=== PATIENT | male | born 1950 | race Caucasian/White ===

== ENCOUNTER → 2020-07-18 09:30 | Outpatient (BNVA) | payer MEDICARE, SELFPAY | PROVIDERS: PCP Internal Medicine; Referring Provider Internal Medicine; Visit Provider Surgery | DX: Z87.19 Personal history of other diseases of the digestive system (principal); Z98.890 Other specified postprocedural states | CPT/HCPCS: 99212 ==

== ENCOUNTER 2020-08-03 01:25 | Emergency (ER) | payer MEDICARE, SELFPAY ==
[2020-08-03 01:48] VITALS: BP 132/61; PULSE 66; RESP 16; TEMP 36.6; O2SAT 95; BMI 22.8
--- NOTE | 2020-08-03 01:55 | XR_ITS ---
EXAMINATION: XR KNEE, LEFT CLINICAL INFORMATION: Status post surgery COMPARISON: None TECHNIQUE: Four views of the left knee. FINDINGS: There is a unicompartmental left knee arthroplasty, with hardware at the medial compartment appropriately aligned. Remaining compartmental joint spaces are maintained. Small joint effusion. No acute fracture. Vascular calcifications. XR/XR knee LT 4V IMPRESSION: Appropriate alignment of the medial compartment arthroplasty. Small joint effusion.
--- NOTE | 2020-08-03 02:12 | ED.GENADULT ---
HPI - General Adult General Chief complaint: General Medical Stated complaint: knee pain Time Seen by Provider: 08/03/20 01:34 Source: patient Mode of arrival: ambulatory History of Present Illness HPI narrative: 70-year-old male for chief complaint of left knee pain. Patient had a partial knee replacement done 5 weeks ago in which has been seeing physical therapy. Patient states about 5 to 6 days ago heard a Pap and continued physical therapy. Since then he has continued to have more pain appointment had to come into emergency department for evaluation. Patient denies fevers or chills. Denies trauma. Denies swelling or redness patient's orthopedic is at [facility] Onset (ago): week(s) (One week) Related Data Home Medications Medication Instructions Recorded Confirmed digoxin 250 mcg (0.25 mg) tablet 0 mcg PO 07/18/20 ferrous sulfate 325 mg (65 mg 325 mg PO BID 07/18/20 iron) tablet hydrocodone 5 mg-acetaminophen 325 tab PO 07/18/20 mg tablet lisinopril 2.5 mg tablet 2.5 mg PO DAILY 07/18/20 lorazepam 1 mg tablet 1 mg PO BID PRN 07/18/20 metoprolol succinate 25 mg 25 mg PO DAILY 07/18/20 tablet,extended release 24 hr omeprazole 20 mg capsule,delayed 20 mg PO DAILY 07/18/20 release oxycodone-acetaminophen 5 mg-325 tab PO 07/18/20 mg tablet simvastatin 40 mg tablet 40 mg PO DAILY 07/18/20 spironolactone 25 mg tablet 25 mg PO DAILY 07/18/20 terazosin 10 mg capsule 10 mg PO DAILY 07/18/20 torsemide 20 mg tablet 20 mg PO BID 07/18/20 warfarin 1 mg tablet mg PO 07/18/20 warfarin 5 mg tablet 500f10 mg PO DAILY 07/18/20 Allergies Allergy/AdvReac Type Severity Reaction Status Date / Time No Known Allergies Allergy Verified 08/03/20 01:54 [No Known Allergies*] Review of Systems Review of Systems: Constitutional : No Weight loss, No Fever, No Chills, No Night Sweats, No Fatigue, No Malaise ENT/Mouth : No Hearing loss, No Ear Pain, No Nasal Congestion, No Sinus Pain, No Hoarseness, No sore throat, No Rhinorrhea, No Swallowing Difficulty Eyes: No Eye Pain, No Swelling, No Redness, No Foreign Body, No Discharge, No Vision Changes Cardiovascular : No Chest Pain, No SOB, No Dyspnea on Exertion, No Orthopnea, No Edema, No Palpitations Respiratory : No Cough, No Sputum, No Wheezing, No Smoke Exposure, No Dyspnea Gastrointestinal : No Nausea, No Vomiting, No Diarrhea, No Constipation, No abdominal Pain, No Hematochezia, No Melena Genitourinary : no irregular bleeding, No Dysuria, No Urinary Frequency, No Hematuria, No Urinary Incontinence, No Urgency, No Flank Pain, No Urinary Flow Changes, No Hesitancy Musculoskeletal : Positive joint pain, No Myalgias, No Joint Swelling Skin : No Skin Lesions, No rash Neuro : No Weakness, No Numbness, No Paresthesias, No Loss of Consciousness, No Dizziness, No Headache Psych : No Anxiety/Panic, No Depression, No SI/HI/AH/VH, No Social Issues, Heme/Lymph: No Bruising, No Bleeding,No Lymphadenopathy Endocrine : No Polyuria, No Polydipsia, No Temperature Intolerance [facility] Past Medical History Medical History BPH (benign prostatic hyperplasia) Chronic a-fib History of laryngeal cancer Right inguinal hernia Family History Family History Father No problems noted. Mother History of hypertension Son No problems noted. Son No problems noted. Daughter No problems noted. Social History Social History Alcohol intake: never Smoking Status: Current every day smoker Advance Directives: No Advance Directives Information Provided: No Physical Exam Vital Signs: Vital Signs: Last Vital Signs Temp 98 F 08/03/20 01:48 Pulse 66 08/03/20 01:48 Resp 16 08/03/20 01:48 BP 132/61 08/03/20 01:48 Pulse Ox 95 08/03/20 01:48 Body Mass Index 22.8 Appearance: Alert. Oriented X3. No acute distress. Eyes: Pupils equal, round and reactive to light. ENT: Pharynx normal. Neck: Normal inspection. Neck supple. No lymph nodes noted. No crepitus CVS: Normal heart rate and rhythm. Pulses normal. Normal S1 and S2 Respiratory: No respiratory distress. Breath sounds normal. No Wheezing. No rales Abdomen: Soft and nontender. No rigidity. No distention. good BS x4 Skin: Skin warm and dry. Normal skin color. Normal skin turgor. Extremities: Left knee pain with healed surgical scar, no warmth or erythema. Mild tenderness to palpation bilateral lateral chronic swelling to medial Neurovascular intact to all extremities. No Lacerations. No Rash Neuro: Oriented X 3. No motor deficit. No sensory deficit. Moving all extermities. No slurred speech. Medical Decision Making MDM Narrative Medical decision making narrative: 70-year-old male with left knee pain status post surgery and possible injury. X-ray of the knee negative with small effusion however effusion too small for me to perform a centesis. At this point I doubt the patient has an infection without fevers chills or erythema warmth. Patient states he has a knee immobilizer at home and crutches at home. As well as states he has pain medications at home and which I directed home care for him will call his orthopedic from [facility] in the morning Discharge Plan Discharge Clinical Impression: Acute pain of left knee Patient Disposition: Home, Self-Care Instructions: Knee Pain (ED) Prescriptions: No Action omeprazole 20 mg capsule,delayed release(DR/EC) 20 mg PO DAILY RF: 0 warfarin 1 mg tablet PO RF: 0 warfarin 5 mg tablet 500f10 mg PO DAILY RF: 0 metoprolol succinate 25 mg tablet extended release 24 hr 25 mg PO DAILY RF: 0 ferrous sulfate 325 mg (65 mg iron) tablet 325 mg PO BID RF: 0 spironolactone 25 mg tablet 25 mg PO DAILY RF: 0 terazosin 10 mg capsule 10 mg PO DAILY RF: 0 digoxin 250 mcg (0.25 mg) tablet 0 mcg PO RF: 0 lisinopril 2.5 mg tablet 2.5 mg PO DAILY RF: 0 simvastatin 40 mg tablet 40 mg PO DAILY RF: 0 torsemide 20 mg tablet 20 mg PO BID RF: 0 oxycodone-acetaminophen 5-325 mg tablet PO RF: 0 hydrocodone-acetaminophen 5-325 mg tablet PO RF: 0 lorazepam 1 mg tablet 1 mg PO BID PRNRF: 0 Referrals: [facility] [place] [Provider Group] - 2 days (Also see your orthopedic doctor)
[2020-08-03] MEDS: Ketorolac Tromethamine 60 MG/2 ML VIAL IM (02:16)
== END 2020-08-03 03:46 | disposition home or self-care (01) ==
PROVIDERS: Emergency Provider Emergency Medicine
DX: M25.562 Pain in left knee (principal); G89.11 Acute pain due to trauma; F17.200 Nicotine dependence, unspecified, uncomplicated; Z71.6 Tobacco abuse counseling; Z79.899 Other long term (current) drug therapy
CPT/HCPCS: 73564; 96372; 99283; 99284; J1885

== ENCOUNTER → 2020-11-15 12:41 | Outpatient (BNVA) | payer MEDICARE, SELFPAY | PROVIDERS: Visit Provider Surgery | DX: K40.90 Unilateral inguinal hernia, without obstruction or gangrene, not specified as recurrent (principal) | CPT/HCPCS: 99212 ==

== ENCOUNTER → 2021-02-18 14:22 | Outpatient (BNVA) | payer MEDICARE, SELFPAY | PROVIDERS: PCP Internal Medicine; Referring Provider Internal Medicine; Visit Provider Surgery | DX: K40.90 Unilateral inguinal hernia, without obstruction or gangrene, not specified as recurrent (principal) | CPT/HCPCS: 99212 ==

== ENCOUNTER → 2021-05-23 14:22 | Outpatient (BNVA) | payer MEDICARE, SELFPAY | PROVIDERS: Visit Provider Urology | CPT/HCPCS: Q3014 ==

== ENCOUNTER → 2021-07-01 12:52 | Outpatient (BNVA) | payer MEDICARE, SELFPAY | PROVIDERS: PCP Internal Medicine; Referring Provider Internal Medicine; Visit Provider Surgery | DX: K40.91 Unilateral inguinal hernia, without obstruction or gangrene, recurrent (principal); I48.20 Chronic atrial fibrillation, unspecified; N40.0 Benign prostatic hyperplasia without lower urinary tract symptoms; Z85.21 Personal history of malignant neoplasm of larynx; Z79.899 Other long term (current) drug therapy | CPT/HCPCS: 99212 ==

== ENCOUNTER 2021-11-21 10:12 | Emergency (ER) | payer MEDICARE, SELFPAY ==
--- NOTE | ~2021-11-21 | NM_ITS ---
EXAMINATION: NM LUNG IMAGE PERFUSION CLINICAL INFORMATION: Elevated d-dimer and chest pain. COMPARISON: Chest x-ray 11/21/2021 TECHNIQUE: Following intravenous administration of 4 mCi of 90 9M technetium MAA, imaging of both lungs were obtained in multiple projection. Ventilation study was not performed. FINDINGS: On perfusion imaging there is enlarged heart resolving is nonsegmental defects along the lingula and right middle lobe. There is no segmental or subsegmental perfusion defect to suspect any PE. NM/NM pul perfusion IMPRESSION: No evidence of perfusion defect to suspect any PE. Significantly enlarged heart similar to seen on the chest x-ray 11/21/2021 earlier today
--- NOTE | ~2021-11-21 | XR_ITS ---
EXAMINATION: XR CHEST CLINICAL INFORMATION: Chest pain COMPARISON: Chest 11/21/2021 TECHNIQUE: Frontal view of the chest was obtained. FINDINGS: Moderate to significant cardiomegaly with normal pulmonary vascularity. There are dual pacer electrodes in right atrium and right ventricle. The lungs are well-expanded and clear of acute pneumonic process. No gross bony abnormality seen. XR/XR chest 1V IMPRESSION: Significant cardiomegaly.. No acute pulmonary process seen.
[2021-11-21 10:18] VITALS: BP 124/67; PULSE 88; O2SAT 94
[2021-11-21 10:26] VITALS: BP 124/60; PULSE 61; RESP 14; TEMP 36.7; O2SAT 94; BMI 24.3
--- NOTE | 2021-11-21 10:30 | ECG_ITS ---
Test Reason : chest pain Blood Pressure : / mmHG Vent. Rate : 056 BPM Atrial Rate : 340 BPM P-R Int : 000 ms QRS Dur : 202 ms QT Int : 532 ms P-R-T Axes : 000 -74 093 degrees QTc Int : 513 ms Ventricular-paced rhythm Abnormal ECG When compared with ECG of 24-FEB-2018 13:33, Vent. rate has decreased BY 9 BPM V pacing more frequent Referred By: Ashley Packer Electronically Signed By:JOCELYNE VILLASENOR
--- NOTE | 2021-11-21 10:32 | ED.CHESTPAIN ---
HPI - Chest Pain General Chief Complaint: Chest Pain Stated Complaint: CHEST PAIN X'S 30MIN,RESOLVED,3 HOME NITRO Time Seen by Provider: 11/21/21 10:29 Source: patient and EMS Mode of arrival: EMS Limitations: no limitations History of Present Illness HPI narrative: 71 years old male came in by ambulance for evaluation of chest pain. Chest pain started about 30 minutes before arrival, patient was talking breakfast with no strenuous activity when he started to have mid retrosternal chest pain, no radiation, lasted for about 30 minutes, patient tried nitro sublingual that he has a home with partial relief, no radiation of the pain, pain was described as moderate 7/10, pain was associated with mild shortness of breath, no fever, no chills, no lower extremity swelling or tenderness. No recent travel, no recent prolonged immobilization. Patient with history of cardiac stent 22 years ago, history of atrial fibrillation on anticoagulation. Related Data Home Medications Medication Instructions Recorded Confirmed digoxin 250 mcg (0.25 mg) tablet 0 mcg PO 07/18/20 07/08/21 ferrous sulfate 325 mg (65 mg 325 mg PO BID 07/18/20 07/08/21 iron) tablet hydrocodone 5 mg-acetaminophen 325 tab PO 07/18/20 07/08/21 mg tablet lisinopril 2.5 mg tablet 2.5 mg PO DAILY 07/18/20 07/08/21 lorazepam 1 mg tablet 1 mg PO BID PRN 07/18/20 07/08/21 metoprolol succinate 25 mg 25 mg PO DAILY 07/18/20 07/08/21 tablet,extended release 24 hr omeprazole 20 mg capsule,delayed 20 mg PO DAILY 07/18/20 07/08/21 release oxycodone-acetaminophen 5 mg-325 tab PO 07/18/20 07/08/21 mg tablet simvastatin 40 mg tablet 40 mg PO DAILY 07/18/20 07/08/21 spironolactone 25 mg tablet 25 mg PO DAILY 07/18/20 07/08/21 torsemide 20 mg tablet 20 mg PO BID 07/18/20 07/08/21 warfarin 1 mg tablet mg PO 07/18/20 07/08/21 warfarin 5 mg tablet 500f10 mg PO DAILY 07/18/20 07/08/21 ferrous sulfate 325 mg (65 mg 325 mg PO BID 05/23/21 07/08/21 iron) tablet,delayed release Previous Rx's Medication Instructions Recorded terazosin 10 mg capsule 10 mg PO DAILY 90 Days #90 cap 05/23/21 Allergies Allergy/AdvReac Type Severity Reaction Status Date / Time No Known Allergies Allergy Verified 07/01/21 13:00 [No Known Allergies*] Review of Systems Review of Systems: All other systems are reviewed and are negative Constitutional: Reports as per HPI and Reports no additional constitutional complaints Eyes: Reports as per HPI and Reports no additional eye complaints Reports system reviewed and no additional complaints, except as documented Cardiovascular: Reports as per HPI and Reports no additional cardiovascular complaints Respiratory: Reports as per HPI and Reports no additional respiratory complaints Gastrointestinal: Reports as per HPI and Reports no additional gastrointestinal complaints Genitourinary: Reports no additional female genitourinary complaints Musculoskeletal: Reports no additional musculoskeletal complaints Skin/Breast: Reports system reviewed and no additional complaints, except as docu Psychiatric: Reports no additional psychiatric complaints Endocrine: Reports no additional endocrine complaints Hematologic/Lymphatic: Reports no additional hematologic/lymphatic complaints Allergic/Immunologic: Reports no additional allergic/immunologic complaints Reports system reviewed and no additional complaints, except as documented and Reports Abnormal speech present [facility] Past Medical History Medical History BPH (benign prostatic hyperplasia) Chronic a-fib History of laryngeal cancer Pacemaker Right inguinal hernia Surgical History History of left knee replacement Family History Family History Father No problems noted. Mother History of hypertension Son No problems noted. Son No problems noted. Daughter No problems noted. Social History Social History Alcohol intake: never Patient Tobacco Use Status: Former Tobacco user Smoked in Last 30 Days: No Use of substances other than those prescribed or required for medical reasons: No Advance Directives: No Physical Exam Vital Signs: Vital Signs: Last Vital Signs Temp 98.1 F 11/21/21 10:26 Pulse 59 11/21/21 14:32 Resp 16 11/21/21 14:32 BP 116/57 L 11/21/21 14:32 Pulse Ox 97 11/21/21 14:32 BMI result Body Mass Index 24.3 Vital signs have been reviewed as appeared to be correct. Blood pressure normal. Heart rate normal. Respiration rate normal. Temperature normal. Oxygen saturation normal. Appearance: Alert. Oriented X3. No acute distress. Head: Normal external exam. Normocephalic. Atraumatic. No Corbin signs noted. No raccoon eyes noted Eyes: PERRLA. EOMI. Conjunctiva and sclera normal. Eyelids normal. ENT: TM's Normal. Pharynx normal. Uvula midline. Moist mucous membranes. No trismus noted. No drooling noted. No muffled voice noted. Neck: Normal inspection. Neck supple. FROM. No adenopathy. Thyroid Normal. No meningeal signs. No neck mass noted. CVS: Normal heart rate and rhythm. Heart sound normal. No murmurs noted. Pulses normal throughout. Respiratory: No respiratory distress. Painless inspiration. Breath sounds normal. No wheezes/rales/rhonchi noted. Chest nontender. No accessory muscle usage noted or decreased air movement noted. Abdomen: Soft and nontender. Bowel sounds normal in all 4 quadrants. No distention noted. No organomegaly noted. No visible injury noted. Back: No CVA tenderness. Full range of motion noted. Skin: Skin warm and dry. Normal skin color. Normal skin turgor. No rashes/lesions/lacerations noted. Extremities: No lower extremity edema. Extremities exhibit normal range of motion. Extremities nontender. Neuro: Oriented X 3. Cranial nerve exam: II-XII are grossly intact No motor deficit. No sensory deficit. Reflexes normal. Course Course Course Narrative: Assessment and plan. 71-year-old male came in for evaluation of chest pain, patient had slight elevation of D-dimer with low suspicion V/Q scan of the chest patient has been maintaining O2 sat at 97% on room air with normal respiratory rate and no tachycardia making PE diagnosis is unfavorable, patient also EKG showing ventricular paced rhythm at 56, normal troponin. Patient was reassured to follow-up with his PCP. [facility] - Chest Pain Medical Records Data Attestation: I reviewed the patient's medical records. Lab Data Attestation: I reviewed the patient's lab results. Result diagrams: 11/21/21 10:54 11/21/21 10:54 Labs: Lab Results 11/21/21 11/21/21 11/21/21 Range/Units 10:54 10:54 10:54 WBC 11.4 H (4.8-10.8) X10*3/uL RBC 3.64 L (4.60-5.80) X10*6/uL Hgb 11.2 L (14.0-18.0) g/dl Hct 34.3 L (42.0-52.0) % MCV 94.2 (80.0-98.0) fL MCH 30.8 (27.0-33.0) pg MCHC 32.7 (31.0-36.0) g/dl RDW 14.2 (11.0-16.0) % Plt Count 171 (160-400) X10*3/uL MPV 9.4 (9.4-12.4) fL Immature Gran % (Auto) 1.6 H (0.0-0.4) % Neut % (Auto) 71.1 (45-73) % Lymph % (Auto) 18.5 L (20-40) % Irion % (Auto) 8.3 (2-11) % Eos % (Auto) 0.3 (0-4) % Baso % (Auto) 0.2 (0-2) % Lymph # (Auto) 2.1 (1.2-4.9) X10*3/uL Irion # (Auto) 1.0 (0.1-1.2) X10*3/uL Eos # (Auto) 0.0 (0.0-0.4) X10*3/uL Baso # (Auto) 0.0 (0.0-0.2) X10*3/uL Abs Immat Gran (auto) 0.18 H (0.00-0.03) X10*3/uL Absolute Neuts (auto) 8.1 (2.0-8.3) x10*3/uL Absolute Nucleated RBC 0.000 (0.0-0.012) X10*3/uL Nucleated RBC % (auto) 0.0 (0.0-0.2) /100WBC D-Dimer High Sensitivty 275 NG/ML Sodium 140 (135-145) mmol/L Potassium 4.1 (3.3-5.1) mmol/L Chloride 101 (96-108) mmol/L Carbon Dioxide 28 (22-29) mmol/L Anion Gap 15 (12-20) BUN 24 H (9-16) mg/dL Creatinine 1.21 (0.5-1.4) mg/dL Estim Creat Clear Calc 63.2 Estimated GFR 59 Random Glucose 104 (60-115) mg/dL Calcium 9.9 (8.4-10.2) mg/dL Total Bilirubin 0.6 (0.0-1.0) mg/dL Direct Bilirubin 0.3 (0.0-0.5) mg/dL AST 24 (5-37) U/L ALT 33 (0-40) U/L Alkaline Phosphatase 71 (39-117) U/L Troponin I High Sens (<3.5-35.0) ng/L B-Natriuretic Peptide (<100) pg/mL Total Protein 7.2 (6.5-8.0) g/dL Albumin 4.8 (3.5-5.0) g/dL Lipase 50 (8-78) U/L Urine Color Urine Appearance Urine pH (5.0-8.0) Ur Specific [place] (1.005-1.025) Urine Protein (NEG-TRACE) MG/DL Urine Glucose (UA) (NEG) MG/DL Urine Ketones (NEG) MG/DL Urine Blood (NEG) Urine Nitrite (NEG) Ur Leukocyte Esterase (NEG) 11/21/21 11/21/21 11/21/21 Range/Units 10:54 14:39 14:39 WBC (4.8-10.8) X10*3/uL RBC (4.60-5.80) X10*6/uL Hgb (14.0-18.0) g/dl Hct (42.0-52.0) % MCV (80.0-98.0) fL MCH (27.0-33.0) pg MCHC (31.0-36.0) g/dl RDW (11.0-16.0) % Plt Count (160-400) X10*3/uL MPV (9.4-12.4) fL Immature Gran % (Auto) (0.0-0.4) % Neut % (Auto) (45-73) % Lymph % (Auto) (20-40) % Irion % (Auto) (2-11) % Eos % (Auto) (0-4) % Baso % (Auto) (0-2) % Lymph # (Auto) (1.2-4.9) X10*3/uL Irion # (Auto) (0.1-1.2) X10*3/uL Eos # (Auto) (0.0-0.4) X10*3/uL Baso # (Auto) (0.0-0.2) X10*3/uL Abs Immat Gran (auto) (0.00-0.03) X10*3/uL Absolute Neuts (auto) (2.0-8.3) x10*3/uL Absolute Nucleated RBC (0.0-0.012) X10*3/uL Nucleated RBC % (auto) (0.0-0.2) /100WBC D-Dimer High Sensitivty NG/ML Sodium (135-145) mmol/L Potassium (3.3-5.1) mmol/L Chloride (96-108) mmol/L Carbon Dioxide (22-29) mmol/L Anion Gap (12-20) BUN (9-16) mg/dL Creatinine (0.5-1.4) mg/dL Estim Creat Clear Calc Estimated GFR Random Glucose (60-115) mg/dL Calcium (8.4-10.2) mg/dL Total Bilirubin (0.0-1.0) mg/dL Direct Bilirubin (0.0-0.5) mg/dL AST (5-37) U/L ALT (0-40) U/L Alkaline Phosphatase (39-117) U/L Troponin I High Sens 11.8 11.9 (<3.5-35.0) ng/L B-Natriuretic Peptide 190 H (<100) pg/mL Total Protein (6.5-8.0) g/dL Albumin (3.5-5.0) g/dL Lipase (8-78) U/L Urine Color STRAW Urine Appearance HAZY Urine pH 6.0 (5.0-8.0) Ur Specific [place] <= 1.005 (1.005-1.025) Urine Protein NEG (NEG-TRACE) MG/DL Urine Glucose (UA) NEG (NEG) MG/DL Urine Ketones NEG (NEG) MG/DL Urine Blood NEG (NEG) Urine Nitrite NEG (NEG) Ur Leukocyte Esterase NEG (NEG) Imaging Data V/Q scan: Attestation: I personally reviewed and interpreted this imaging study as follows: Radiologist's impression: No evidence of perfusion defect to suspect any PE. Significantly enlarged heart similar to seen on the chest x-ray ECG Data ECG #1: Attestation: I personally reviewed and interpreted this ECG as follows: Interpretation: Ventricular paced EKG at 56 beats per minute. Discharge Plan Discharge Clinical Impression: Atypical chest pain Patient Disposition: Home, Self-Care Instructions: Chest Pain (ED) Prescriptions: No Action omeprazole 20 mg capsule,delayed release(DR/EC) 20 mg PO DAILY 0RF warfarin 1 mg tablet PO 0RF warfarin 5 mg tablet 500f10 mg PO DAILY 0RF metoprolol succinate 25 mg tablet extended release 24 hr 25 mg PO DAILY 0RF ferrous sulfate 325 mg (65 mg iron) tablet 325 mg PO BID 0RF spironolactone 25 mg tablet 25 mg PO DAILY 0RF digoxin 250 mcg (0.25 mg) tablet 0 mcg PO 0RF lisinopril 2.5 mg tablet 2.5 mg PO DAILY 0RF simvastatin 40 mg tablet 40 mg PO DAILY 0RF torsemide 20 mg tablet 20 mg PO BID 0RF oxycodone-acetaminophen 5-325 mg tablet PO 0RF hydrocodone-acetaminophen 5-325 mg tablet PO 0RF lorazepam 1 mg tablet 1 mg PO BID PRN0RF ferrous sulfate 325 mg (65 mg iron) tablet,delayed release (DR/EC) 325 mg PO BID 0RF terazosin 10 mg capsule 10 mg PO DAILY 90 Days Qty: 90 3RF Referrals: Alina Braden, [facility] [Primary Care Provider] - 2 days
[2021-11-21 10:33] VITALS: PULSE 56
[2021-11-21 11:03] LABS: MANUAL DIFF FLAG NO
[2021-11-21 11:04] LABS: Basophils Percent Auto 0.2 % (0-2); Eosinophils Percent Auto 0.3 % (0-4); Hematocrit 34.3 % (42.0-52.0); Hemoglobin 11.2 g/dl (14.0-18.0); Imm Gran Abs Auto 0.18 X10*3/uL (0.00-0.03); Imm Gran Pct Auto 1.6 % (0.0-0.4); Lymphocytes Absolute Auto 2.1 X10*3/uL (1.2-4.9); Lymphocytes Percent Auto 18.5 % (20-40); Mean Corpuscular HGB Conc 32.7 g/dl (31.0-36.0); Mean Corpuscular Hemoglobin 30.8 pg (27.0-33.0); Mean Corpuscular Volume 94.2 fL (80.0-98.0); Mean Platelet Volume 9.4 fL (9.4-12.4); Monocytes Percent Auto 8.3 % (2-11); Neutrophils Absolute Auto 8.1 x10*3/uL (2.0-8.3); Neutrophils Percent Auto 71.1 % (45-73); Platelet Count 171 X10*3/uL (160-400); Red Blood Count 3.64 X10*6/uL (4.60-5.80); Red Cell Distribution Width 14.2 % (11.0-16.0); White Blood Count 11.4 X10*3/uL (4.8-10.8)
[2021-11-21 11:12] LABS: D Dimer High Sensitivity 275 NG/ML
[2021-11-21 11:18] LABS: Alanine Aminotransferase 33 U/L (0-40); Albumin Level 4.8 g/dL (3.5-5.0); Alkaline Phosphatase 71 U/L (39-117); Anion Gap 15 (12-20); Aspartate Amino Transferase 24 U/L (5-37); Bilirubin Direct 0.3 mg/dL (0.0-0.5); Bilirubin Total 0.6 mg/dL (0.0-1.0); Blood Urea Nitrogen 24 mg/dL (9-16); Calcium 9.9 mg/dL (8.4-10.2); Carbon Dioxide 28 mmol/L (22-29); Chloride 101 mmol/L (96-108); Creatinine Clr Calc Pharmacy 63.2; Estimated Glomerular Filt Rate 59; Glucose Random 104 mg/dL (60-115); Lipase 50 U/L (8-78); Potassium 4.1 mmol/L (3.3-5.1); Sodium 140 mmol/L (135-145); Total Protein 7.2 g/dL (6.5-8.0)
[2021-11-21 11:22] LABS: B Type Natriuretic Peptide 190 pg/mL (<100); Troponin-I High Sensitivity 11.8 ng/L (<3.5-35.0)
[2021-11-21 12:21] VITALS: BP 108/62; PULSE 58; RESP 22; O2SAT 97
[2021-11-21 14:32] VITALS: BP 116/57; PULSE 59; RESP 16; O2SAT 97
[2021-11-21 14:49] LABS: Appearance Urine HAZY; Color Urine STRAW; Glucose Urine UA NEG (NEG); Leukocyte Esterase Urine NEG (NEG); Nitrite Urine NEG (NEG); Specific Gravity - Urine <= 1.005 (1.005-1.025); Urine Blood NEG (NEG); Urine Ketones NEG (NEG); Urine Protein NEG (NEG-TRACE)
[2021-11-21 15:04] LABS: Troponin-I High Sensitivity 11.9 ng/L (<3.5-35.0)
== END 2021-11-21 15:49 | disposition home or self-care (01) ==
PROVIDERS: Emergency Provider Emergency Medicine; PCP Registered Nurse
DX: R07.89 Other chest pain (principal); R06.02 Shortness of breath; I48.20 Chronic atrial fibrillation, unspecified; Z79.01 Long term (current) use of anticoagulants; Z79.02 Long term (current) use of antithrombotics/antiplatelets; Z95.0 Presence of cardiac pacemaker; Z85.21 Personal history of malignant neoplasm of larynx; Z87.891 Personal history of nicotine dependence
CPT/HCPCS: 36415; 71045; 78580; 80048; 80076; 81003; 83690; 83880; 84484; 85025; 85379; 93005; 99285; A9540

== ENCOUNTER → 2022-07-02 08:41 | Outpatient (BNVA) | payer MEDICARE, SELFPAY | PROVIDERS: PCP Registered Nurse; Visit Provider Urology | DX: N40.0 Benign prostatic hyperplasia without lower urinary tract symptoms (principal) | CPT/HCPCS: Q3014 ==

== ENCOUNTER 2023-06-30 09:14 | Outpatient (AMB) | payer MEDICARE, SELFPAY ==
--- NOTE | 2023-06-30 09:15 | A.OFFVIS_ITS ---
Intake Intake Visit Reasons: 1Y PSA(Set) Intake Note: Patient is Present for Follow Up PSA Urology Medication: Terazosin Antibiotic Allergies: None Blood Thinners: Warfarin Pharmacy: [facility] PVR: 0ml Allergies No Known Allergies [No Known Allergies*] Allergy (Verified 06/30/23 09:17) Medication List - Last Reconciled 06/30/23 by Lawrence Roberts MD digoxin 0 mcg PO ferrous sulfate 325 mg PO BID ferrous sulfate 325 mg PO BID hydrocodone-acetaminophen 5-325 mg tabs PO lisinopril 2.5 mg PO DAILY lorazepam 1 mg PO BID PRN metoprolol succinate ER 25 mg PO DAILY omeprazole 20 mg PO DAILY oxycodone-acetaminophen 5-325 mg tabs PO simvastatin 40 mg PO DAILY spironolactone 25 mg PO DAILY terazosin 10 mg PO DAILY 90 days torsemide 20 mg PO BID warfarin 500f10 mg PO DAILY warfarin mg PO HPI HPI Comments History of Present Illness Details Mr. Sanket Little is a very pleasant male. He is a patient of Dr. Randle. He is here for further evaluation of the following urologic conditions. ?- BPH PVR 0cc PSA remains low Well controlled symptoms on terazosin 10 mg Off finasteride NED 1+ Elevated PSA/Abnormal NED:?06/24 CT/PET for laryngeal lesion ?has small hotspot on prostate ?Biopsy with scarring and chronic inflammation - PET change presumed a false positive due to inflammatory changes ?Ended up with vocal cord resection last year. Urination doing well with terazosin 10mg ? Laboratory investigations include?a total PSA evaluation ?05/25 1.0 on 5AR, 05/26 2.6 off 5AR, 05/27 1.9, 05/28 2.4, 05/29 1.9, 05/30 1.2 ? Individualized Prostate Cancer Risk Calculator?< 5% high risk.? His prior IPSS was?mild.? Therapeutic plan will be?continued surveillance. [facility] Medical History Pacemaker Right inguinal hernia History of laryngeal cancer Chronic a-fib BPH (benign prostatic hyperplasia) Surgical History History of left knee replacement Family History Father No problems noted. Mother History of hypertension Son No problems noted. Son No problems noted. Daughter No problems noted. Social History Alcohol intake: never Patient Tobacco Use Status: Former Tobacco user Review of Systems Const Denies chills and Denies fever(s) Card Reports no additional complaints and Denies syncope Resp Denies cough GI Denies abdominal pain and Denies heartburn Reports as per HPI and Denies change in libido Neuro Denies syncope Psych Denies change in libido Endo Denies change in libido Physical Exam Const General: cooperative, healthy appearing, comfortable and no acute distress Orientation/consciousness: patient oriented x3 HEENT Face and sinus: Yes normal facial exam Mouth: moist mucous membranes Neck Neck: Yes normal visual inspection, Yes full ROM and Yes trachea midline Chest Chest palpation & inspection: normal inspection of the chest Resp Effort & Inspection: normal respiratory effort, able to speak in complete sentences and no respiratory distress GI Inspection: Yes normal to inspection Rectal Exam - Male: Yes normal sphincter tone and Yes prostate normal Male General Exam: Yes normal external exam Penis: normal penis and circumcised Meatus: meatus normal Scrotum: scrotum normal Testes: Testes normal Back/Spine/Pelvis Cervical Spine: normal cervical lordosis Thoracic/Lumbar Spine: thoracic and lumbar spine normal to inspection Skin General skin exam: no rashes or lesions noted Neuro General: patient oriented x3, gait normal, tone normal and moves all extremities Extrem General: Yes normal to inspection and Yes capillary refill normal Office Procedures Post Void Residual Post Residual Void Post Void Residual (PVR): 0 27009-Lykp Void Residual by ultrasound Results AMB Urinalysis, Automated UA Leukoctes 0 [place]/uL Last Edit by ENRIQUE Watson on 06/30/23 09:26 UA Nitrite Negative Last Edit by ENRIQUE Watson on 06/30/23 09:26 UA Urobilinogen 0.2 mg/dL Last Edit by Anjali Maxwell, RMA on 06/30/23 09:2 6 UA Protein 0 mg/dL Last Edit by Anjali Maxwell, RMA on 06/30/23 09:26 UA pH 7.5 Last Edit by Anjali Maxwell, RMA on 06/30/23 09:26 UA Blood 0 [place]/uL Last Edit by Anjali Maxwell, RMA on 06/30/23 09:26 UA Specific [place] 1.010 Last Edit by Anjali Maxwell, RMA on 06/30/23 09: 26 UA Ketone Negative Last Edit by Anjali Maxwell, RMA on 06/30/23 09:26 UA Bilirubin 0 mg/dL Last Edit by Anjali Maxwell, RMA on 06/30/23 09:26 UA Glucose 0 mg/dL Last Edit by Anjali Maxwell, A on 06/30/23 09:26 Results Reviewed Results Reviewed: Laboratory Last Values Urine pH (Auto) 7.5 06/30/23 09:23 Specific [place] (Auto) 1.010 06/30/23 09:23 Urine Protein (Auto) 0 mg/dL 06/30/23 09:23 Glucose (UA)(Auto) 0 mg/dL 06/30/23 09:23 Urine Ketones (Auto) Negative 06/30/23 09:23 Urine Blood (Auto) 0 [place]/uL 06/30/23 09:23 Urine Nitrite (Auto) Negative 06/30/23 09:23 Urine Bilirubin (Auto) 0 mg/dL 06/30/23 09:23 Urine Urobilinogen (Auto) 0.2 mg/dL 06/30/23 09:23 Leukocyte Esterase (Auto) 0 [place]/uL 06/30/23 09:23 Assessment & Plan Assessment & Plan (1) BPH (benign prostatic hyperplasia): Code(s): N40.0 - Benign prostatic hyperplasia without lower urinary tract symptoms Qualifiers: Lower urinary tract symptom detail: weak urinary stream Lower urinary tract symptom presence: symptoms present Qualified Code(s): N40.1 - Benign prostatic hyperplasia with lower urinary tract symptoms; R39.12 - Poor urinary stream Plan Twelve month follow-up PVR Orders: Orders AMB Urinalysis Automated Today Z13.9 - Encounter for screening, unspecified Prostate Specific Antigen 364 Days N40.0 - Benign prostatic hyperplasia without lower urinary tract symptoms AMB Post Void Residual by ultrasound Today N40.0 - Benign prostatic hyperplasia without lower urinary tract symptoms Medications: Refilled terazosin 10 mg PO DAILY 90 caps 3RF 90 days N40.1 - Benign prostatic hyperplasia with lower urinary tract symptoms, R39.12 - Poor urinary stream Patient Instructions: Imaging studies, laboratory and physical exam results were discussed and reviewed in detail. No major barriers to patient understanding were identified. An opportunity to ask questions regarding the treatment plan was provided. All questions were answered. The patient expressed understanding and agreement with the above treatment plan. The patient is aware they should contact our office by phone for worsening of their current condition or the appearance of new urologic symptoms. Compliance is encouraged with any medications and followup testing that is ordered. It is a privilege to participate in the urologic care of your patient. If you have any questions or concerns regarding treatment for the above conditions, or other urologic issues, please do not hesitate to contact me. The office telephone contact is [phone]. This note is constructed using voice recognition software. While every effort has been made to ensure accuracy collections agent errors may have been included. Yours sincerely, Dr Lawrence Roberts MD, [facility] - Urology Providers of Expert, Compassionate Care for the Genitourinary System Coding Level of Care Code Est Pt Level 4 (29967) Diagnoses Benign prostatic hyperplasia with weak urinary stream N40.1; R39.12 Lower urinary tract symptom detail: weak urinary stream Lower urinary tract symptom presence: symptoms present CPT Codes Post Residual Void - PVR CPT Code: 90060-Mfjl Void Residual by ultrasound ([id number])
== END 2023-06-30 10:28 | disposition home or self-care (01) ==
PROVIDERS: Visit Provider Urology
DX: N40.1 Benign prostatic hyperplasia with lower urinary tract symptoms (principal); R39.12 Poor urinary stream; Z13.9 Encounter for screening, unspecified
CPT/HCPCS: 99213

== ENCOUNTER → 2023-06-30 09:14 | Outpatient (BNVA) | payer MEDICARE, SELFPAY | PROVIDERS: Visit Provider Urology | DX: N40.1 Benign prostatic hyperplasia with lower urinary tract symptoms (principal); R39.12 Poor urinary stream | CPT/HCPCS: 51798; 81003; 99212 ==

== ENCOUNTER 2024-03-09 12:54 | Outpatient (AMB) | payer MEDICARE, SELFPAY ==
--- NOTE | 2024-03-09 13:17 | A.OFFVIS_ITS ---
Vital Signs 03/09/24 13:22 Weight 194 lb BP 88/48 L Blood Pressure Location Lt brachial Position Sitting Pulse 59 Intake Visit Reasons: Swelling on RT side of prior hernia repair Intake Note: This patient presents for a re-evaluation for right inguinal hernia. Patient c/o: reports discomfort, reports bulge radiated towards scrotum. [employer] Operator Required: No Accompanied by: Self / Same As Patient Allergies No Known Allergies [No Known Allergies*] Allergy (Verified 03/09/24 13:23) Medication List - Last Reconciled 03/09/24 by Poncho Montgomery MD digoxin 0 mcg PO ferrous sulfate 325 mg PO BID ferrous sulfate 325 mg PO BID hydrocodone-acetaminophen 5-325 mg tabs PO lisinopril 2.5 mg PO DAILY lorazepam 1 mg PO BID PRN metoprolol succinate ER 25 mg PO DAILY nitroglycerin mg sublingual omeprazole 20 mg PO DAILY oxycodone-acetaminophen 5-325 mg tabs PO simvastatin 40 mg PO DAILY spironolactone 25 mg PO DAILY tafamidis (Vyndamax) 61 mg PO DAILY terazosin 10 mg PO DAILY 90 days torsemide 20 mg PO BID warfarin 500f10 mg PO DAILY warfarin mg PO HPI HPI Swelling on RT side of prior hernia repair: Details: 74-year-old male here for follow-up for his recurrent right inguinal hernia. He has had undergone multiple repairs in the past. His last surgery for the recu rrent inguinal hernia was in 2019. Unfortunately, he had developed a recurrence again after that. He denies any discomfort or pain. He does state that he would notice the reducible mass whenever he is doing strenuous activities but this would reduce on its own He denies any problems with the oral intake or bowel movements He has a history of atrial fibrillation and is on Coumadin. He has had surgery for laryngeal cancer in the past. [facility] Medical History (Updated 03/09/24 @ 13:38 by Poncho Montgomery MD) Recurrent inguinal hernia Pacemaker Right inguinal hernia History of laryngeal cancer Chronic a-fib BPH (benign prostatic hyperplasia) Surgical History History of left knee replacement Family History Father No problems noted. Mother History of hypertension Son No problems noted. Son No problems noted. Daughter No problems noted. Social History Alcohol intake: never Patient Tobacco Use Status: Former Tobacco user Review of Systems Const Denies chills and Denies fever(s) Card Denies chest pain, Denies dyspnea and Denies dyspnea on exertion Resp Denies cough, Denies dyspnea and Denies dyspnea on exertion GI Denies hematochezia and Denies change in bowel habits Denies hematuria and Denies difficulty urinating Musc Reports back pain and Denies limited range of motion Neuro Denies focal weakness and Denies convulsions Psych Denies depression and Denies mood swings Physical Exam Vital Signs: Last Vital Signs Pulse 59 03/09/24 13:22 BP 88/48 L 03/09/24 13:22 Const General: comfortable and no acute distress Resp Effort & Inspection: normal respiratory effort Cardio Other: Currently with a regular rhythm GI Other: Right inguinal hernia, obvious on the with Valsalva, easily reduced, nontender Palpation (GI): Soft to palpation, not firm, nontender and no guarding Assessment & Plan Assessment & Plan (1) Recurrent inguinal hernia: Code(s): K40.91 - Unilateral inguinal hernia, without obstruction or gangrene, recurrent Category: Medical Plan: He has this recurrent right inguinal hernia. He does have multiple repairs in the past already. I had a long discussion with him about the option of repair. I explained the technique of the procedure. I reviewed the risks including but not limited to b leeding, infections, injury to other organs including bowel or the vas deferens, as well as the benefits and alternatives. He does understand that there is high risk of recurrence because of his multiple repairs in the past. Furthermore, anticipate the procedure to be difficult review of the anticipated fibrotic changes from previous repairs He would stated that he really does not have any pain or tenderness on the inguinal hernia. He says he would like to avoid surgery if possible. I did tell him that it is reasonable to do a watchful waiting approach as the hernia does not bother him. I did explain to him the risks, although low, of acute incarceration and strangulation. He said he will come to the office for follow-up down the line to be re- evaluated. He says he understands the above and is comfortable with the plan. Coding Level of Care Code New Pt Level 3 (35488) Diagnoses Recurrent inguinal hernia K40.91
[2024-03-09 13:22] VITALS: BP 88/48; PULSE 59
== END 2024-03-09 13:36 | disposition home or self-care (01) ==
PROVIDERS: PCP Internal Medicine; Visit Provider Surgery
DX: K40.91 Unilateral inguinal hernia, without obstruction or gangrene, recurrent (principal)
CPT/HCPCS: 99213

== ENCOUNTER → 2024-03-09 12:54 | Outpatient (BNVA) | payer MEDICARE, SELFPAY | PROVIDERS: PCP Internal Medicine; Visit Provider Surgery | DX: K40.91 Unilateral inguinal hernia, without obstruction or gangrene, recurrent (principal) | CPT/HCPCS: 99212 ==

== ENCOUNTER 2024-05-12 22:31 | Emergency (ER) | payer MEDICARE, SELFPAY ==
--- NOTE | ~2024-05-12 | XR_ITS ---
EXAMINATION: XR CHEST CLINICAL INFORMATION: Cough. Bleeding. COMPARISON: Chest x-ray November 21, 2021 TECHNIQUE: 2 views of the chest were obtained. FINDINGS: Heart size enlarged. Prominent right cardiac heart border. No change since prior study. Pacemaker leads in right atrium and left ventricle. No pulmonary vascular congestion. No focal dense consolidation. Blunted right costophrenic angle consistent with a small pleural effusion. No pneumothorax. XR/XR chest 2V IMPRESSION: 1. Cardiomegaly. Pacemaker leads in right atrium and left ventricle. 2. Small right pleural effusion. Electronically signed by: Joshua Moncada MD 05/12/2024 11:24 PM EDT
[2024-05-12 22:41] VITALS: BP 128/74; PULSE 73; RESP 16; TEMP 36.6; O2SAT 90; BMI 27.0
--- NOTE | 2024-05-12 22:56 | ED.GENADULT ---
HPI - General Adult General Chief complaint: General Medical Stated complaint: trach bleeding Time Seen by Provider: 05/12/24 22:56 History of Present Illness ED Provider: Juan HENDERSON narrative: The patient is a 74-year-old male with a history of a laryngectomy. He also has a history of atrial fibrillation. He is on warfarin. The patient says that over the past few years he has had occasional episodes of minor bleeding from his laryngectomy but he has never had major bleeding. Over the last 2 days he has had bleeding that is more than he is accustomed to. He says that he went to his twisting machine operator's office yesterday. His normal twisting machine operator is Dr. Parra. His regular twisting machine operator was away on vacation. He saw an associate who apparently may plans to do some kind of a procedure in 4 days. The patient was told that if he has worsening bleeding he should go to the emergency room. His evening he had worsening bleeding and was coughing up more blood and came to the emergency room here. He has had no fevers. Related Data Home Medications ?Medication ?Instructions ?Recorded ?Confirmed digoxin 250 mcg (0.25 mg) tablet 0 mcg PO 07/18/20 03/09/24 ferrous sulfate 325 mg (65 mg 325 mg PO BID 07/18/20 03/09/24 iron) tablet hydrocodone 5 mg-acetaminophen 325 tab PO 07/18/20 03/09/24 mg tablet lisinopril 2.5 mg tablet 2.5 mg PO DAILY 07/18/20 03/09/24 lorazepam 1 mg tablet 1 mg PO BID PRN 07/18/20 03/09/24 metoprolol succinate 25 mg 25 mg PO DAILY 07/18/20 03/09/24 tablet,extended release 24 hr omeprazole 20 mg capsule,delayed 20 mg PO DAILY 07/18/20 03/09/24 release oxycodone-acetaminophen 5 mg-325 tab PO 07/18/20 03/09/24 mg tablet simvastatin 40 mg tablet 40 mg PO DAILY 07/18/20 03/09/24 spironolactone 25 mg tablet 25 mg PO DAILY 07/18/20 03/09/24 torsemide 20 mg tablet 20 mg PO BID 07/18/20 03/09/24 warfarin 1 mg tablet mg PO 07/18/20 03/09/24 warfarin 5 mg tablet 500f10 mg PO DAILY 07/18/20 03/09/24 ferrous sulfate 325 mg (65 mg 325 mg PO BID 05/23/21 03/09/24 iron) tablet,delayed release nitroglycerin 0.4 mg sublingual mg sublingual 03/09/24 03/09/24 tablet tafamidis 61 mg capsule (Vyndamax) 61 mg PO DAILY 03/09/24 03/09/24 Previous Rx's ?Medication ?Instructions ?Recorded terazosin 10 mg capsule 10 mg PO DAILY 90 days #90 caps 06/30/23 Allergies Allergy/AdvReac Type Severity Reaction Status Date / Time No Known Allergies Allergy Verified 05/12/24 22:43 [No Known Allergies*] Review of Systems Review of Systems: Yes all other systems are reviewed and are negative [facility] Past Medical History Medical History (Updated 05/13/24 @ 08:52 by He Martinez MD) Recurrent inguinal hernia Pacemaker Right inguinal hernia History of laryngeal cancer Chronic a-fib BPH (benign prostatic hyperplasia) Surgical History (Updated 05/13/24 @ 08:52 by He Martinez MD) History of left knee replacement Family History Family History Father No problems noted. Mother History of hypertension Son No problems noted. Son No problems noted. Daughter No problems noted. Social History Social History Alcohol intake: never Patient Tobacco Use Status: Former Tobacco user Advance Directives: No Advance Directives Information Provided: No Do you have a plan to hurt others: No Plan Physical Exam ED Vital Signs: Vital Signs - 24 hr 05/12/24 22:41 05/12/24 23:21 05/13/24 06:01 Temperature 97.9 F 96.9 F 96.9 F Pulse Rate 73 75 68 Respiratory Rate 16 20 18 Blood Pressure 128/74 125/51 L 118/56 L Pulse Oximetry 90 L 92 93 Oxygen Delivery Method Room Air Room Air Room Air 05/13/24 08:00 Temperature 97.7 F Pulse Rate 69 Respiratory Rate 18 Blood Pressure 99/60 Pulse Oximetry 94 Oxygen Delivery Method Room Air BMI result Body Mass Index 27.0 Const Other: The patient is a 74-year-old male who is a slim, chronically ill-appearing 74-year-old. He is awake and alert. He has a laryngectomy but communicates using an electrolarynx. HENMT Other: Face is symmetrical. Mucous membranes moist. Eyes Other: Pupils are round equal, conjunctivae are clear, extraocular movements intact. Neck Other: The patient has a stoma in the sternal notch consistent with a laryngectomy. There was blood around the stoma. Resp Effort & Inspection: normal respiratory effort Auscultation: clear to auscultation bilaterally Cardio Other: The patient has a normal rate but an irregular rhythm. GI Other: Abdomen is soft and nontender Skin Other: Skin is dry and unremarkable Neuro Other: The patient is awake and alert. He is able to communicate using an electrolarynx. Face is symmetrical. Eye movements normal. Moves extremities normally. Grossly neurologically intact. Extrem General: Yes full ROM and Yes no pedal edema Medications Administered Discontinued Medications Generic Name Dose Route Start Last Admin Trade Name Freq PRN Reason Stop Dose Admin Prothrombin Complex Concent ( 80 mls @ 480 mls/hr 05/12/24 23:45 05/13/24 01:30 Human) 2,000 unit/ IV IV 05/12/24 23:54 Infused Miscellaneous Supplies .Q10M ONE Infusion Phytonadione 10 mg/ Sodium 51 mls @ 51 mls/hr 05/13/24 00:27 05/13/24 03:15 Chloride IV 05/13/24 01:26 Infused ONCE ONE Infusion Tranexamic Acid 500 mg 05/12/24 22:57 05/12/24 23:35 Tranexamic Acid 1,000 Mg/10 Ml Vial INHALE 05/12/24 22:58 500 mg ONCE ONE Administration Medical Decision Making Medical Decision Making [facility] Narrative: The patient is a 74-year-old male who has had a laryngectomy because of laryngeal cancer. He also has chronic atrial fibrillation and is on warfarin. He has had some increased hemoptysis over the last few days. He was seen at his pulmonology office 2 days ago and was scheduled for an outpatient bronchoscopy this coming Thursday. The patient was advised to stop taking his warfarin in anticipation of the procedure. This evening the patient's hemoptysis increased and he came to the emergency room. The patient was having some degree of hemoptysis but it was not massive. He was given a TXA updraft. Labs were checked. His INR was 2.9. He was given 2000 units of four factor PCC (Kcentra). He was given 10 mg of IV vitamin K. His bleeding seemed to improve. His hemoglobin was 9.6. The only previous hemoglobin we have in our system was from November of 2021 when his hemoglobin was 11.2. I contacted [facility] and ultimately the patient was accepted to be transferred to [facility] with a possible plan for a bronchoscopy later today. I repeated his labs this morning. His hemoglobin this morning is 9.0. His INR was 1.9. When I contacted [facility] I spoke with the 1 of the covering twisting machine operator's and also a hospitalist. The accepting physician is Dr. Elizabeth. Lab Data 05/13/24 06:33 05/12/24 23:21 Labs: Lab Results 05/12/24 05/13/24 05/13/24 Range/Units 23:21 00:20 06:33 WBC 5.1 4.4 L (4.8-10.8) X10*3/uL RBC 3.04 L 2.90 L (4.60-5.80) X10*6/uL Hgb 9.6 L 9.0 L (14.0-18.0) g/dl Hct 28.7 L 27.6 L (42.0-52.0) % MCV 94.4 95.2 (80.0-98.0) fL MCH 31.6 31.0 (27.0-33.0) pg MCHC 33.4 32.6 (31.0-36.0) g/dl RDW 15.3 15.4 (11.0-16.0) % Plt Count 107 L D 89 L (160-400) X10*3/uL MPV 10.0 9.6 (9.4-12.4) fL Immature Gran % (Auto) 0.6 H (0.0-0.4) % Neut % (Auto) 69.9 (45-73) % Lymph % (Auto) 13.1 L (20-40) % [place] % (Auto) 13.1 H (2-11) % Eos % (Auto) 2.7 (0-4) % Baso % (Auto) 0.6 (0-2) % Lymph # (Auto) 0.7 L (1.2-4.9) X10*3/uL [place] # (Auto) 0.7 (0.1-1.2) X10*3/uL Eos # (Auto) 0.1 (0.0-0.4) X10*3/uL Baso # (Auto) 0.0 (0.0-0.2) X10*3/uL Abs Immat Gran (auto) 0.03 (0.00-0.03) X10*3/uL Absolute Neuts (auto) 3.6 (2.0-8.3) x10*3/uL Absolute Nucleated RBC 0.000 0.000 (0.0-0.012) X10*3/uL Nucleated RBC % (auto) 0.0 0.0 (0.0-0.2) /100WBC PT 35.1 H 23.1 H D (11.1-13.3) SEC INR 2.9 H 1.9 H (0.9-1.1) Sodium 136 (135-145) mmol/L Potassium 3.4 (3.3-5.1) mmol/L Chloride 99 (96-108) mmol/L Carbon Dioxide 27 (22-29) mmol/L Anion Gap 13 (12-20) BUN 12 (9-16) mg/dL Creatinine 1.19 (0.5-1.4) mg/dL Estim Creat Clear Calc 54.5 Estimated GFR 59 Random Glucose 95 (60-115) mg/dL Calcium 9.0 D (8.4-10.2) mg/dL Total Bilirubin 1.0 (0.0-1.0) mg/dL AST 36 (5-37) U/L ALT 16 (0-40) U/L Alkaline Phosphatase 80 (39-117) U/L Total Protein 6.2 L (6.5-8.0) g/dL Albumin 3.9 (3.5-5.0) g/dL Blood Type O Positive Antibody Screen NEGATIVE Critical Care Time Critical Care Time Critical Care Time: Yes Total Critical Care Time: 35 Attestation: The patient was critically ill with a high probability of imminent or life-threatening deterioration. ?I spent greater than 30 minutes of discontinuous time evaluating the patient, delivering critical care at the bedside, discussing evaluating data with consultants. ?Critical care time does not include time spent performing separately billable procedures or teaching. ?Time spent performing critical care with 35 minutes. Discharge Plan Discharge Clinical Impression: Hemoptysis, Chronic atrial fibrillation, History of laryngectomy, Anticoagulated Patient Disposition: [facility] Transfer Details: [facility] Dr. Elizabeth Prescriptions: No Action omeprazole 20 mg capsule,delayed release(DR/EC) 20 mg PO DAILY warfarin 1 mg tablet PO warfarin 5 mg tablet 500f10 mg PO DAILY metoprolol succinate 25 mg tablet extended release 24 hr 25 mg PO DAILY ferrous sulfate 325 mg (65 mg iron) tablet 325 mg PO BID spironolactone 25 mg tablet 25 mg PO DAILY digoxin 250 mcg (0.25 mg) tablet 0 mcg PO lisinopril 2.5 mg tablet 2.5 mg PO DAILY simvastatin 40 mg tablet 40 mg PO DAILY torsemide 20 mg tablet 20 mg PO BID oxycodone-acetaminophen 5-325 mg tablet PO hydrocodone-acetaminophen 5-325 mg tablet PO lorazepam 1 mg tablet 1 mg PO BID PRN ferrous sulfate 325 mg (65 mg iron) tablet,delayed release (DR/EC) 325 mg PO BID terazosin 10 mg capsule 10 mg PO DAILY 90 Days Qty: 90 3RF Vyndamax 61 mg capsule 61 mg PO DAILY nitroglycerin 0.4 mg tablet, sublingual sublingual Print Language: Kyrgyz
--- NOTE | 2024-05-12 23:01 | ECG_ITS ---
Test Reason : Trach Bleeding Blood Pressure : / mmHG Vent. Rate : 070 BPM Atrial Rate : 340 BPM P-R Int : 000 ms QRS Dur : 112 ms QT Int : 468 ms P-R-T Axes : 000 014 061 degrees QTc Int : 505 ms Atrial fibrillation with Premature ventricular complexes and ventricular-paced complexes Incomplete left bundle branch block Nonspecific ST and T wave abnormality Abnormal ECG When compared with ECG of 21-NOV-2021 10:29, Atrial fibrillation is now seen Referred By: He Martinez Electronically Signed By:ALIA CLARKE
--- OUTSIDE RECORDS SUMMARY | 2024-05-12 23:09 | XMS_ITS | Continuity of Care Document ---
Author Organization [facility] ter Address [address] [place] [id number]- Care Team Providers Care Paper Bag Machine Operator Name Role Phone Razia WILSON, Felix Dneis Primary Care Physician [phone] Encounter [facility] Date(s): 04/11/22 - 05/25/[address] [address] Attending Physician: Corin Howard MD Admitting Physician: Corin Howard MD Referring Physician: Lory Leonard MD Allergies, Adverse Reactions, Alerts Substance Reaction Severity Status Venofer 1 bleeding hypotension Active 1hypotension Immunizations Given and Recorded Vaccine Date Status Refusal Reason SARS-CoV-2 (COVID-19) mRNA-1273 vaccine 12/12/21 R ecorded SARS-CoV-2 (COVID-19) mRNA-1273 vaccine 07/03/21 R ecorded SARS-CoV-2 (COVID-19) mRNA-1273 vaccine 12/01/20 G iven SARS-CoV-2 (COVID-19) mRNA-1273 vaccine 11/03/20 G iven influenza virus vaccine, inactivated 06/07/21 Faraz rded influenza virus vaccine, inactivated 05/27/20 Faraz rded pneumococcal 23-valent vaccine 08/06/19 Recorded pneumococcal 13-valent vaccine 10/17/18 Given tetanus/diphtheria/pertussis, acel(Tdap) 08/03/12 Recorded Medications calcium carbonate 600 mg oral tablet 1 tablet = 600 mg, By Mouth, Daily in AM, # 60 tablet, 0 Refills, Maintenance, 06/12/20 8:57:00 EDT, Tablet Start Date: 06/12/20 Status: Ordered digoxin 0.25 mg oral tablet 250 mcg, 1, tablet, By Mouth, Every Thursday, Thursday and Thursday, changes 01/26, # 13 tablet, Refills 3, Tot. Refills 3, Maintenance, 06/06/21 14:05:00 EDT, Do Not Route Start Date: 06/06/21 Stop Date: 10/04/21 Status: Ordered Docusate = 100 mg, By Mouth, 2 times a day, 0 Refills, Maintenance, 06/12/20 9:02:00 EDT Start Date: 06/12/20 Status: Ordered ferrous sulfate 325 mg oral enteric coated tablet 325 mg, 1, tablet, By Mouth, 2 times a day, # 180 tablet, Refills 3, Tot. Refills 3, Maintenance, 07/01/21 12:27:00 EDT, Route to Pharmacy Electronically, [facility], Partial fill upon patient request if the prescription is for a schedul... Start Date: 07/01/21 Stop Date: 06/26/22 Status: Ordered lisinopril 2.5 mg oral tablet 2.5 mg, 1, tablet, By Mouth, Daily, # 30 tablet, Refills 0, Tot. Refills 0, Maintenance, 06/06/21 14:05:00 EDT, Do Not Route, Partial fill upon patient request if the prescription is for a schedule II opioid drug. Start Date: 06/06/21 Status: Ordered magnesium oxide 250 mg oral tablet 1 tablet = 250 mg, By Mouth, Daily at bedtime, # 14 tablet, 0 Refills, Maintenance, 07/11/19 13:56:15 EST, Tablet Start Date: 07/11/19 Status: Ordered metoprolol 25 mg oral tablet, extended release 25 mg, 1, tablet, By Mouth, Daily, # 30 tablet, Refills 5, Tot. Refills 5, Maintenance, 06/06/21 14:06:00 EDT, Do Not Route Start Date: 06/06/21 Stop Date: 12/03/21 Status: Ordered omeprazole 20 mg oral enteric coated capsule 1 capsule, By Mouth, Daily, # 90 capsule, 0 Refills, [facility], 187.96, cm, 02/18/22 15:14:00 EDT, Height, 86.4, kg, 01/08/22 14:42:00 EDT, Dry Weight Start Date: 03/11/22 Status: Ordered simvastatin 20 mg oral tablet 20 mg, 1, tablet, By Mouth, Daily at bedtime, # 30 tablet, Refills 0, Tot. Refills 0, Maintenance, 06/06/21 14:06:00 EDT, Do Not Route, Partial fill upon patient request if the prescription is for a schedule II opioid drug. Start Date: 06/06/21 Status: Ordered spironolactone 25 mg oral tablet 25 mg, 1, tablet, By Mouth, Daily, # 90 tablet, Refills 3, Tot. Refills 3, Maintenance, 06/06/21 14:06:00 EDT, Do Not Route Start Date: 06/06/21 Stop Date: 06/01/22 Status: Ordered terazosin 10 mg oral capsule 10 mg, 1, capsule, By Mouth, Daily at bedtime, # 90 capsule, Refills 0, Tot. Refills 0, Maintenance, 06/06/21 14:07:00 EDT, Do Not Route, Partial fill upon patient request if the prescription is for a schedule II opioid drug. Start Date: 06/06/21 Status: Ordered torsemide 20 mg oral tablet 2 tablet = 40 mg, By Mouth, Daily, # 60 tablet, 0 Refills, Maintenance, 06/06/21 14:07:00 EDT, Tablet, Partial fill upon patient request if the prescription is for a schedule II opioid drug. Start Date: 06/06/21 Status: Ordered Vitamin B1 Daily, 0 Refills, Maintenance, 05/16/22 8:54:00 EDT, Partial fill upon patient request if the prescription is for a schedule II opioid drug. Start Date: 05/16/22 Status: Ordered Vitamin C 500 mg oral tablet 1 tablet = 500 mg, By Mouth, Daily in AM, # 30 tablet, 0 Refills, Maintenance, 06/12/20 8:57:00 EDT, Tablet Start Date: 06/12/20 Status: Ordered warfarin 5 mg oral tablet See Instructions, 1-2 tablet By Mouth Daily per protocol, # 135 tablet, 3 Refills, Maintenance, 08/19/21 10:38:00 EST, Tablet, [facility], Partial fill upon patient request if the prescription is for a schedule II opioid drug., 188, cm,... 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 Cirrhosis of liver(Confirmed) Active CHF (congestive heart failure)(Confirmed) Active Contact dermatitis(Confirmed) Active CAD (coronary artery disease)(Confirmed) Active Muscle cramps(Confirmed) Active Hemoptysis(Confirmed) Active S/P laryngectomy(Confirmed) Active Hyperlipidemia(Confirmed) Active HTN (hypertension)(Confirmed) Active Cervicalgia(Confirmed) Active Health care maintenance(Confirmed) Active Primary cancer of larynx(Confirmed) Active Rhinitis(Confirmed) Active Right inguinal hernia(Confirmed) Active Social History Social History Type Response Smoking Status Former smoker, quit more than 30 days ago; Tobacco user in household: Yes; Other: quit 09/2018; entered on: 01/04/19 Sex Care Team Personnel Name: Razia WILSON, Felix Denis Address: [address] [place] [address]
--- OUTSIDE RECORDS SUMMARY | 2024-05-12 23:09 | XMS_ITS | Continuity of Care Document ---
Author Organization [facility] Address [address] [place] [address]- Care Team Providers Care Dry Wall Installer Name Role Phone Felix Randle MD Primary Care Physician Encounter [facility] Date(s): 02/27/20 - 05/04/20 [facility] [address] [place] [id number]- [facility] Attending Physician: Dana Godoy MD Admitting Physician: Dana Godoy MD Referring Physician: Felix Randle MD Allergies, Adverse Reactions, Alerts Substance Reaction Severity Status Venofer 1 Active 1hypotension Immunizations Given and Recorded Vaccine Date Status Refusal Reason pneumococcal 13-valent vaccine 10/17/18 Given Medications acetaminophen 325 mg oral tablet 650 mg, G Tube, Every 6 hours, PRN, # 30 tablet, Refills 0, Tot. Refills 0, Maintenance, Pain , Moderate, 10/05/18 13:29:58 EST, Do Not Route Start Date: 10/05/18 Status: Ordered bacitracin topical 500 u/gm ointment See Instructions, Topically 2 times a day, # 15 Gm, 0 Refills, Maintenance, 10/05/18 13:30:08 EST, Ointment Start Date: 10/05/18 Status: Ordered bisacodyl 10 mg rectal suppository 1 supp = 10 mg, Rectally, Daily, PRN Constipation, # 5 supp, 0 Refills, Maintenance, 10/05/18 13:30:26 EST, Suppository Start Date: 10/05/18 Status: Ordered Blood pressure monitor Blood pressure monitor, See Instructions, # 1 units, Refills 0, Tot. Refills 0, Maintenance, Test BP twice daily or when symptomatic DX HFrEF, 01/28/19 14:04:20 EDT, Compound Start Date: 01/28/19 Status: Ordered calcium-vitamin D 250 mg-200 intl units oral tablet 1 tab, PEG, Daily, # 150 tablet, 0 Refills, Maintenance, 10/05/18 13:37:44 EST, Tablet Start Date: 10/05/18 Status: Ordered chlorhexidine 2% topical liquid See Instructions, Topically 2 times a day, # 120 mL, 0 Refills, Maintenance, 10/05/18 13:30:40 EST,Liquid Start Date: 10/05/18 Status: Ordered digoxin 0.25 mg oral tablet 250 mcg, 1, tablet, By Mouth, Every Thursday, Thursday and Thursday, changes 01/26, # 13 tablet, Refills 3, Tot. Refills 3, Maintenance, 01/06/19 14:03:00 EDT, Route to Pharmacy Electronically, [id number], [facility] Start Date: 01/06/19 Stop Date: 05/06/19 Status: Ordered docusate sodium 0 Refills, Maintenance, 01/03/19 12:46:54 EDT Start Date: 01/03/19 Status: Ordered docusate sodium 150 mg/15 ml oral liquid 10 mL = 100 mg, G Tube, 2 times a day, # 600 mL, 0 Refills, Maintenance, 10/05/18 13:30:53 EST, Liquid Start Date: 10/05/18 Status: Ordered ferrous sulfate 325 mg oral enteric coated tablet 325 mg, 1, tablet, By Mouth, 3 times a day, may take with food to minimize abdominal discomfort, # 90 tablet, Refills 0, Tot. Refills 0, Maintenance, 12/16/18 17:08:59 EDT, Route to Pharmacy Electronically, [id number], [facility]... Start Date: 12/16/18 Stop Date: 01/15/19 Status: Ordered lisinopril 2.5 mg oral tablet 2.5 mg, 1, tablet, By Mouth, Daily, # 30 tablet, Refills 5, Tot. Refills 5, Maintenance, 07/04/19 15:04:15 EDT, Route to Pharmacy Electronically, [id number], [email or web address] Start Date: 07/04/19 Stop Date: 12/31/19 Status: Ordered magnesium oxide 250 mg oral tablet 1 tablet = 250 mg, By Mouth, Daily, # 14 tablet, 0 Refills, Maintenance, 07/11/19 13:56:15 EST, Tablet Start Date: 07/11/19 Status: Ordered melatonin 3 mg oral tablet See Instructions, po Daily at bedtime, # 60 tablet, 0 Refills, Maintenance, 10/05/18 13:31:04 EST, Tablet Start Date: 10/05/18 Status: Ordered metoprolol 25 mg oral tablet, extended release 25 mg, 1, tablet, By Mouth, Daily, # 30 tablet, Refills 5, Tot. Refills 5, Maintenance, 04/05/20 15:47:00 EDT, Route to Pharmacy Electronically, [email or web address], 187.96, cm, 07/11/19 13:54:00 EST, Height, 90, kg, 12/13/18 13:58:00 EDT, Dry We... Start Date: 04/05/20 Stop Date: 10/02/20 Status: Ordered omeprazole 20 mg oral enteric coated capsule TAKE ONE CAPSULE BY MOUTH EVERY DAY Start Date: 04/24/20 Status: Ordered Prevacid 30 mg oral enteric coated capsule 1 capsule = 30 mg, G Tube, Daily, # 30 capsule, 0 Refills, Maintenance, 10/05/18 13:26:41 EST, EC Capsule Start Date: 10/05/18 Status: Ordered simvastatin 20 mg oral tablet 20 mg, G Tube, Daily at bedtime, # 30 tablet, Refills 0, Tot. Refills 0, Maintenance, 10/05/18 13:29:40 EST, Do Not Route Start Date: 10/05/18 Status: Ordered spironolactone 25 mg oral tablet 25 mg, 1, tablet, By Mouth, Daily, # 90 tablet, Refills 3, Tot. Refills 3, Maintenance, 09/20/19 10:26:00 EST, Route to Pharmacy Electronically, [facility], 187.96, cm, 07/11/19 13:54:00 EST, Height, 90, kg, 12/13/18 13:58:00 EDT, Dry We... Start Date: 09/20/19 Stop Date: 09/14/20 Status: Ordered Terazosin 10 mg, By Mouth, Daily at bedtime, Maintenance, 10/16/18 16:53:16 EST Start Date: 10/16/18 Status: Ordered torsemide 10 mg oral tablet 1.5 tablet = 15 mg, By Mouth, Daily, # 45 tablet, 3 Refills, Maintenance, 01/03/19 14:02:53 EDT, Tablet Start Date: 01/03/19 Stop Date: 05/03/19 Status: Ordered torsemide 20 mg oral tablet TAKE ONE TABLET BY MOUTH TWICE A DAY Start Date: 04/24/20 Status: Ordered Vitamin C By Mouth, Daily, 0 Refills, Maintenance, 01/03/19 12:46:32 EDT Start Date: 01/03/19 Status: Ordered warfarin 2.5 mg oral tablet 2 tablet = 5 mg, By Mouth, Daily, # 10 tablet, 0 Refills, Maintenance, 10/05/18 13:27:21 EST, Tablet Start Date: 10/05/18 Status: Ordered Problem List Condition Effective Dates Status Health Status Inform ant CHF (congestive heart failure)(Confirmed) Active Primary cancer of larynx(Confirmed) Active Social History Social History Type Response Smoking Status Former smoker, quit more than 30 days ago; Tobacco user in household: Yes; Other: quit 09/2018; entered on: 01/04/19 Sex Male
--- OUTSIDE RECORDS SUMMARY | 2024-05-12 23:09 | XMS_ITS | Continuity of Care Document ---
Author Organization [facility] ter Address [address] [place] [id number]- Care Team Providers Care Editor & Co Founder Name Role Phone Felix Randle MD Primary Care Physician Encounter [facility] Date(s): 11/02/19 - 02/01/[address] [address]- [facility] Attending Physician: Felix Randle MD Allergies, Adverse Reactions, [...] 01/06/19 14:03:00 EDT, Route to Pharmacy Electronically, [id number], [facility] Start Date: [...] 12/16/18 17:08:59 EDT, Route to Pharmacy Electronically, [id number], [facility]... Start Date: 12/16/18 Stop Date: 01/15/19 Status: Ordered lisinopril 2.5 mg oral tablet 2.5 mg, 1, tablet, By Mouth, Daily, # 30 tablet, Refills 5, Tot. Refills 5, Maintenance, 07/04/19 15:04:15 EDT, Route to Pharmacy Electronically, [id number], [facility] Start Date: 07/04/19 Stop Date: 12/31/19 [...] tablet, Refills 5, Tot. Refills 5, Maintenance, 10/31/19 10:21:00 EST, Route to Pharmacy Electronically, [facility], 187.96, cm, 07/11/19 13:54:00 EST, Height, 90, kg, 12/13/18 13:58:00 EDT, Dry We... Start Date: 10/31/19 Stop Date: 04/28/20 Status: Ordered Prevacid 30 mg oral enteric [...] 09/20/19 10:26:00 EST, Route to Pharmacy Electronically, [facility], 187.96, cm, 07/11/19 13:54:00 EST, [...] Date: 01/03/19 Stop Date: 05/03/19 Status: Ordered Vitamin C By Mouth, Daily, [...]
--- OUTSIDE RECORDS SUMMARY | 2024-05-12 23:09 | XMS_ITS | Continuity of Care Document ---
Author Organization [facility] ter Address [address] [place] [address]- Care Team Providers Care Champion Of Sustainable Design Name Role Phone Felix Randle MD Primary Care Physician Encounter [facility] [place] Date(s): 08/16/21 - 08/16/[address] [address] Discharge Disposition: A-D/C Home Attending Physician: Deepak Bravo MD Admitting Physician: Deepak Bravo MD Referring Physician: Deepak Bravo MD Allergies, Adverse Reactions, Alerts Substance Reaction Severity Status Venofer 1 Active 1hypotension Immunizations Given and Recorded Vaccine Date Status Refusal Reason SARS-CoV-2 (COVID-19) mRNA-1273 vaccine 12/01/20 G iven SARS-CoV-2 (COVID-19) mRNA-1273 vaccine 11/03/20 G iven influenza virus vaccine, inactivated 05/27/20 Faraz rded pneumococcal 23-valent vaccine 08/06/19 Recorded pneumococcal 13-valent vaccine 10/17/18 Given tetanus/diphtheria/pertussis, acel(Tdap) 08/03/12 Recorded Medications calcium carbonate 600 mg oral tablet 1 tablet = 600 mg, By Mouth, Daily, # 60 tablet, 0 Refills, Maintenance, 06/12/20 8:57:00 EDT, Tablet Start Date: 06/12/20 Status: Ordered Docusate = 100 mg, By Mouth, Daily, 0 Refills, Maintenance, 06/12/20 9:02:00 EDT Start Date: 06/12/20 Status: Ordered magnesium oxide 250 mg oral tablet 1 tablet = 250 mg, By Mouth, Daily, # 14 tablet, 0 Refills, Maintenance, 07/11/19 13:56:15 EST, Tablet Start Date: 07/11/19 Status: Ordered MiraLax Powder 1 pack/packet = 17 Gm, By Mouth, Daily, 0 Refills, Maintenance, 06/27/20 8:35:00 EDT, Powder Start Date: 06/27/20 Status: Ordered Vitamin C 500 mg oral tablet 1 tablet = 500 mg, By Mouth, Daily, # 30 tablet, 0 Refills, Maintenance, 06/12/20 8:57:00 EDT, Tablet Start Date: 06/12/20 Status: Ordered Problem List Condition Effective Dates Status Health Status Inform ant Anemia(Confirmed) Active Afib(Confirmed) Active 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 Cirrhosis of liver(Confirmed) Active CHF (congestive heart failure)(Confirmed) Active CAD (coronary artery disease)(Confirmed) Active Hyperlipidemia(Confirmed) Active HTN (hypertension)(Confirmed) Active Primary cancer of larynx(Confirmed) Active Right inguinal hernia(Confirmed) Active Procedures Procedure Date Related Diagnosis Body Site Status Colonoscopy with polypectomy 08/16/21 Completed Colonoscopy with polypectomy 08/16/21 Completed Vital Signs Most recent to oldest [Reference Range]: 1 2 3 Height 188 cm (08/16/21 7:49 AM) Weight 83.9 kg (08/16/21 7:49 AM) Oxygen Saturation [94-100 %] 97 % (08/16/21 8:49 AM) 100 % (08/16/21 8:40 AM) 95 % (08/16/21 7:49 AM) Pulse Rate [55-90 bpm] 75 bpm (08/16/21 7:49 AM) Body Mass Index [18.5-24.99] 23.74 (08/16/21 7:49 AM) Blood Pressure [90-138/55-84 mm Hg] 111/63mm Hg (08/16/21 8:49 AM) 102/68mm Hg (08/16/21 8:40 AM) 139/88mm Hg *H* (08/16/21 7:49 AM) Respiratory Rate [16-30 br/min] 18 br/min (08/16/21 8:49 AM) 18 br/min (08/16/21 8:40 AM) 18 br/min (08/16/21 7:49 AM) Temperature [96.8-100.4 DegF] 98.4 DegF (08/16/21 7:49 AM) Liters per Minute 4 L/min (08/16/21 8:40 AM) Mode of Delivery (Oxygen) Room air (08/16/21 8:49 AM) Trach mask (08/16/21 8:40 AM) Room air (08/16/21 7:49 AM) Temperature Route Temporal (08/16/21 7:49 AM) Social History Social History Type Response Smoking Status Former smoker, quit more than 30 days ago; Tobacco user in household: Yes; Other: quit 09/2018; entered on: 01/04/19 Sex
--- OUTSIDE RECORDS SUMMARY | 2024-05-12 23:09 | XMS_ITS | Continuity of Care Document ---
Author Organization [facility] ter Address [address] [place] [address]- Care Team Providers Care Authors Motivational Name Role Phone Felix Randle MD Primary Care Physician [phone] [facility]counter [facility] Date(s): 07/01/23 - 07/01/[address] [id number] Discharge Disposition: A-D/C Home Attending Physician: Deepak Bravo MD Admitting Physician: Deepak Bravo MD Referring Physician: Deepak Bravo MD Allergies, Adverse Reactions, Alerts Substance Reaction Severity Status Venofer 1 bleeding hypotension Active 1hypotension Immunizations Given and Recorded Vaccine Date Status Refusal Reason [id number] bivalent booster vax 04/22/23 Recorded [id number] bivalent booster vax 05/27/22 Recorded zoster vaccine, inactivated 09/09/22 Recorded zoster vaccine, inactivated 06/25/22 Recorded influenza virus vaccine, inactivated 06/10/22 Faraz rded influenza virus vaccine, inactivated 06/07/21 Faraz rded influenza virus vaccine, inactivated 05/27/20 Faraz rded SARS-CoV-2 (COVID-19) mRNA-1273 vaccine 12/12/21 R ecorded SARS-CoV-2 (COVID-19) mRNA-1273 vaccine 07/03/21 R ecorded SARS-CoV-2 (COVID-19) mRNA-1273 vaccine 12/01/20 G iven SARS-CoV-2 (COVID-19) mRNA-1273 vaccine 11/03/20 G iven pneumococcal 23-valent vaccine 08/06/19 Recorded pneumococcal 13-valent vaccine 10/17/18 Given tetanus/diphtheria/pertussis, acel(Tdap) 08/03/12 Recorded Medications calcium carbonate 600 mg oral tablet 1 tablet = 600 mg, By Mouth, Daily in AM, # 60 tablet, 0 Refills, Maintenance, 06/12/20 8:57:00 EDT, Tablet Start Date: 06/12/20 Status: Ordered cyclobenzaprine 10 mg oral tablet 10 mg, 1, tablet, By Mouth, 3 times a day, PRN, # 30 tablet, Refills 0, Tot. Refills 0, Acute 11/27/23 13:30:00 EDT, for spasm, 11/26/22 13:30:00 EDT, Route to Pharmacy Electronically, [facility], Partial fill upon patient request if the... Start Date: 11/26/22 Stop Date: 11/27/23 Status: Ordered digoxin 0.25 mg oral tablet [...] sulfate 325 mg oral enteric coated tablet 1, tablet, By Mouth, 2 times a day, # 180 tablet, Refills 0, Maintenance, 04/05/23 8:01:00 EDT, Route to Pharmacy Electronically, [facility], 187.96, cm, 03/24/23 13:14:00 EDT, Height, 86.4, kg, 01/08/22 14:42:00 EDT, Dry Weight Start Date: 04/05/23 Status: Ordered Jantoven 5 mg oral tablet 1-2 TABLETS, By Mouth, Daily, PER PROTOCOL., # 135 tablet, 3 Refills, Maintenance, 08/25/22 9:47:00EST, [facility], 187.96, cm, 07/03/22 16:11:00 EDT, Height, 86.4, kg, 01/08/22 14:42:00 EDT, Dry Weight Start Date: 08/25/22 Status: Ordered lisinopril 2.5 mg oral tablet [...] capsule, By Mouth, Daily, # 90 capsule, 1 Refills, Maintenance, 02/28/23 11:27:00 EDT, [facility], 187.96, cm, 02/17/23 11:20:00 EDT, Height, 86.4, kg, 01/08/22 14:42:00 EDT, Dry Weight Start Date: 02/28/23 Status: Ordered simvastatin 20 mg oral tablet [...] EDT, Tablet Start Date: 06/12/20 Status: Ordered Vyndamax 61 mg oral capsule 1 capsule = 61 mg, By Mouth, Daily, swallow whole, # 30 capsule, 0 Refills, Maintenance, 11/19/22 12:58:00 EDT, Capsule, Partial fill upon patient request if the prescription is for a schedule II opioid drug. 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 Hyperlipidemia Confirmed Active HTN (hypertension) Confirmed Active Cervicalgia Confirmed Active Health care maintenance Confirmed Active Rhinitis Confirmed Active Right inguinal hernia Confirmed Active 1Per chart review meeting GFR criteria Procedures Procedure Date Related Diagnosis Body Site Status Esophagogastroduodenoscopy and biopsy 07/01/23 Completed Vital Signs Most recent to oldest [Reference Range]: 1 2 3 Height 188 cm (07/01/23 7:39 AM) Weight 79.4 kg (07/01/23 7:39 AM) Oxygen Saturation [94-100 %] 96 % (07/01/23 9:12 AM) 99 % (07/01/23 9:08 AM) 99 % (07/01/23 8:59 AM) Pulse Rate [55-90 bpm] 64 bpm (07/01/23 7:39 AM) Body Mass Index [18.5-24.99 kg/m2] 22.46 kg/m2 (07/01/23 7:39 AM) Blood Pressure [90-138/55-84 mm Hg] 102/57mm Hg (07/01/23 9:12 AM) 99/57mm Hg (07/01/23 9:08 AM) 96/55mm Hg (07/01/23 8:59 AM) Respiratory Rate [16-30 br/min] 19 br/min (07/01/23 9:12 AM) 19 br/min (07/01/23 9:08 AM) 22 br/min (07/01/23 8:59 AM) Temperature [96.8-100.4 DegF] 97.9 DegF (07/01/23 7:39 AM) Liters per Minute 5 L/min (07/01/23 9:08 AM) 5 L/min (07/01/23 8:59 AM) Mode of Delivery (Oxygen) Room air (07/01/23 9:12 AM) Trach mask (07/01/23 9:08 AM) Trach mask (07/01/23 8:59 AM) Blood pressure sites Arm, left (07/01/23 9:12 AM) Arm, left (07/01/23 9:08 AM) Arm, left (07/01/23 8:59 AM) Temperature Route Temporal (07/01/23 7:39 AM) Dry Weight 79 kg (07/01/23 7:39 AM) Weight Obtained Via Patient/family state d (07/01/23 7:39 AM) Social History Social History Type Response Smoking Status Former smoker, quit more than 30 days ago entered on: 02/17/23 Sex Endoscopy study * Event Display: GG EGD Please click on pdf link to open report Note * Sarah MERCADO, Sabi Tate: PERFORM Event Display: Discharge/Transfer Note Hospital Authored Date: [id number] Nursing Discharge Note Entered On: 07/01/2023 9:11 EDT Performed On: 07/01/2023 9:10 EDT by Sabi Smith RN Nursing Discharge Note 2 Discharge Level of Care at Discharge : Home/Senior Living/Foster Care Patient Left Unit Via : Wheelchair Patient Accompanied Off Unit with : Responsible adult DC Instructions Provided & Signed by Pt : Yes Patient Understands D/C Instructions : Yes Patient Instructions Discharge Signed : Yes Did Pt have Specialty Bed or Wound Vac : No Sabi Smith RN - 07/01/2023 9:10 EDT * Sabi Smith RN: PERFORM Event Display: Patient Education/Instruction Authored Date: [id number] Surgery Adult Discharge Instructions [place] [id number] Name: REGAN DUKES : 1950?? Visit: 07/01/2023 06:42?? Current Date: 07/01/2023 09:11 ?? Account: [id number]?? Surgery Discharge Instructions We would like to thank you for allowing us to assist you with your healthcare needs. The following includes patient education materials and information regarding your injury/illness. Our entire staffstrives to provide an excellent experience for our patients and their families. PLEASE ENSURE YOU FOLLOW-UP PER THE INSTRUCTIONS BELOW! ?? YOUR OPINION IS IMPORTANT TO US! Please complete the survey you may receive by mail or email. Your feedback will be used to make improvements to the healthcare experiences of our patients and their families. Surveys are administered by [employer] ?? If further treatment with your primary care physician or another doctor is recommended, it is important for you to keep the appointment. Call your primary care physician or return to the Emergency Department immediately if your condition worsens, fails to improve, or new symptoms develop. If you need to find a doctor, you can call [facility] for a referral at [phone] or toll free at [phone] ([phone]) or log in to [email or web address].. ?? [facility], in keeping with [facility] guidance, no longer requires face masks for staff, patientsor visitors in most situations. Similiar to time spent indoors at other locations, there is the chance that you were exposed to repiratory viruses during your time with us (such as flu or COVID-19). If you develop symptoms concerning for a viral respiratory infection, please seek testing (and treatment if indicated) from your medical provider or home test kit. ?? You can view and manage your care through the patient portal or by using a health care mike of your choosing. [employer] is a website that allows you to securely view your medical information including your hospital discharge summary, office visit summaries, medications and follow-up visits. You can also request appointments, renew medications, and request access to your medical information using a health care mike of your choosing, or just ask a question. You are entitled to know the individuals who participated in your treatment. This information is available within your medical record and will be provided upon your request. You can enroll at [email or web address] or register d uring your next office visit. You have been discharged from [facility], Patient Care Unit: ENDO??. If you have any questions regarding these instructions after you leave, please call us and we will be happy to assist you. [facility] Your Care Team Attending Physician Deepak Bravo MD?? Reason for Admission TIMOTHY Primary Care Provider Felix Randle MD? Advance Directive Health Care Proxy on File Yes - Health Care Proxy Yes - MOLST What to do next Instructions From Your Doctor ?? Orders?? Scheduled Follow-Up Appointments Thursday 2:00 PM EST ?? Where: [facility] [address] [place] [address]- Status: Pending You Need to Schedule the Following Appointments Follow Up with??Felix Randle MD Where: ?? Discharge Medications REGAN DUKES :1950 Visit Date:07/01/2023 Medications: Please continue your medications until treatment is completed or stopped by your provider. You may resume your daily prescription medications. Discuss any questions related to medications with your provider. What How Much When Instructions Next Dose Unchanged Ascorbic Acid (Vitamin C 500 mg oral tablet) 1 tab(s) Oral Daily in the morning Unchanged Calcium Carbonate (calcium carbonate 600 mg oral tablet) 1 tab(s) Oral Daily in the morning Unchanged Cyclobenzaprine (cyclobenzaprine 10 mg oral tablet) 1 tab(s) Oral 3 times a day as needed for for spasm Unchanged Digoxin (digoxin 0.25 mg oral tablet) 1 tab(s) Oral Thursday, Thursday and Thursday Duration: 30 Days changes ?? Unchanged Docusate 100 Milligram Oral Twice a day Unchanged Ferrous Sulfate (ferrous sulfate 325 mg oral enteric coated tablet) 1 tab(s) Oral Twice a day Unchanged Lisinopril (lisinopril 2.5 mg oral tablet) 1 tab(s) Oral Daily Unchanged Magnesium Oxide (magnesium oxide 250 mg oral tablet) 1 tab(s) Oral Daily at Bedtime Unchanged Metoprolol (metoprolol 25 mg oral tablet, extended release) 1 tab(s) Oral Daily Duration: 30 Days Unchanged Omeprazole (omeprazole 20 mg oral enteric coated capsule) 1 capsule Oral Daily Unchanged Simvastatin (simvastatin 20 mg oral tablet) 1 tab(s) Oral Daily at Bedtime Unchanged Spironolactone (spironolactone 25 mg oral tablet) 1 tab(s) Oral Daily Duration: 90 Days Unchanged tafamidis (Vyndamax 61 mg oral capsule) 1 capsule Oral Daily swallow whole ?? Unchanged Terazosin (terazosin 10 mg oral capsule) 1 capsule Oral Daily at Bedtime Unchanged Thiamine (Vitamin B1) Daily Unchanged torsemide (torsemide 20 mg oral tablet) 2 tab(s) Oral Daily Unchanged Warfarin (Jantoven 5 mg oral tablet) 1-2 TABLETS Oral Daily PER PROTOCOL. ?? Allergies (NKA means No Known Allergies) Venofer??(bleeding, hypotension) Education Materials Below is the list of Educational Leaflet Providered with your Discharge Instructions. Surgery Medical Daystay Surgical Overnight Discharge Instructions?? Valuables and Belongings I fully understand and agree that [facility] accepts no responsibility for all my personal property including clothing, toilet articles, radios, jewelry, dentures, hearing aids, rings, money, or any other property that is in my possession or is brought to me after admission. I understand certain valuables may be placed in a hospital safe for a short period of time. I understand that the hospital is not liable for loss or damage due to accident, fire, or other natural occurrence while said property is in the safe. I accept full responsibility for any personal property that I keep with me, and will not hold the hospital responsible in case of loss or disappearance. I acknowledge that i have been encouraged to send valuables and belongings home. ? Other Discharge Information ? Case Management Discharge Plan?? Discharge Plan?? Discharge Level of Care at Discharge: Home/Senior Living/Foster Care ?? Pulmonary Rehab Status?? Pulmonary Rehab Discharge Status?? Respiratory Rate: 19 br/min ? Common Emergency Awareness Tips IS IT A STROKE? Act FAST and Check for these signs: FACE Does the face look uneven? ARM Does one arm drift down? SPEECH Does their speech sound strange? TIME Call at any sign of stroke ?? Heart Attack Signs Chest discomfort: Most heart attacks involve discomfort in the center of the chest and lasts more than a few minutes, or goes away and comes back. It can feel like uncomfortable pressure, squeezing, fullness or pain. Discomfort in upper body: Symptoms can include pain or discomfort in one or both arms, back, neck, jaw or stomach. Shortness of breath: With or without discomfort. Other signs: Breaking out in a cold sweat, nausea, or lightheaded. Remember, MINUTES DO MATTER. If you experience any of these heart attack warning signs, call to get immediate medical attention! ?? Smoking can increase your chances of developing chronic health problems and can cause harmful effects to other family members in your house. If you smoke, you are strongly encouraged to quit. Please call [facility] [employer] [facility] at [phone] or [phone] Transmit & Receive ([phone]) or log in to [email or web address] for referrals to smoking cessation programs. ?? The National Suicide Prevention Hotline is available 30/03 if you or someone you know needs to find a reason to keep living. By calling 3-593-659-[place] (0220) you'll be connected to a skilled, trained counselor at a crisis center in your area. SURGERY DISCHARGE INSTRUCTIONS SIGNATURE PAGE REGAN DUKES Location:[facility] Registration Date and Time:07/01/2023 06:42 EDT Primary Care Physician: Razia WILSON, Felix Denis, Attending Physician: Deepak Bravo MD REGAN UNGER, have received the above patient education materials/instructions and have verbalized understanding. If ambulance or transport services are being used I further acknowledge being given a choice of service. ?? If you need to contact me, please call me at this number: . Patient/Second Steward Name: Patient/Second Steward Signature: Relationship to Patient: Witness Name/Signature: Date: * Sabi Smith RN: PERFORM Event Display: Patient Education Leaflets Authored Date: [id number] Surgery Medical Daystay Surgical Overnight Discharge Instructions ?? 295 Medical Daystay/Surgical Overnight Discharge Instructions ? Since your coordination and judgment may be altered by medication and/or anesthesia, a responsible adult must drive you home from the hospital. ? If you have received medication for pain or sedation while under our care, you should not drive, operate machinery, drink alcohol, or sign any legal documents for 24 hours.?? You should have someone with you at home tonight. ? Remain at home the day of discharge.?? You may be up and about unless otherwise instructed by your physician. ? You may resume your daily prescription medication schedule.?? Any depressant medication should be avoided for 24 hours unless otherwise instructed by your surgeon or anesthesiologist. ? Call your physician for a follow-up appointment.? If you experience unusual or severe pain not relied by your pain medication, excessive bleedingor drainage, persistent nausea and vomiting, excessive swelling or redness, foul odor from incisionsite or fever over 100.6F, you need to call your physician. ? A follow-up phone call by a nurse will be made the day after your procedure.?? If you have stayed with us over night, you will not be receiving a follow-up phone call. ? Nausea and vomiting are a common side effect of prescription pain medication.?? We recommend that pills are not taken on an empty stomach.?? While taking any prescription pain medication you should not drive or drink alcohol. ? Patient Care team information Care Team Personnel Name: Chela Jung MA Position: [facility] MA Member Role: Lifetime Consulting Physician Name: Aleks Rodriguez RN Position: [facility] Rad RN Member Role: Primary Care Nurse Name: Zuleyma Gonzales RN Position: [facility] RN Member Role: Primary Care Nurse Name: Osiris Croft PharmD Position: [facility] Associate Professional Member Role: Lifetime Consulting Provider Address: Address: [address] [place] [id number]- Name: Lizabeth Montaño RN Position: [facility] RN Member Role: Primary Care Nurse Name: Osiris Portillo RN Position: [facility] RN Member Role: Primary Care Nurse Name: Mariana Ovalle RN Position: [facility] SN RN Member Role: Primary Care Nurse Name: Felix Randle MD Position: [facility] Physician - Primary Care Member Role: PCP Address: Address: [address] [place] [address]- Care Team Related Persons Name: LEONARD MCCOLLUM Address: home [address] [place] [address] Name: CLAUDIA LAI Address: home [place] [id number] Name: HEBER DUKES
--- OUTSIDE RECORDS SUMMARY | 2024-05-12 23:09 | XMS_ITS | Continuity of Care Document ---
Author Organization [facility] Address [address] [place] [id number]- Care Team Providers Care Perfect Bind Machine Operator Name Role Phone Felix Randle MD Primary Care Physician [facility] Date[facility]): 08[facility]21 - 09/14/21 [facility] [address] [place] [id number]- [place] Allergies, Adverse Reactions, Alerts Substance Reaction Severity [...] of larynx(Confirmed) Active Right inguinal hernia(Confirmed) Active Social History Social History Type Response Smoking Status Former smoker, quit more than 30 days ago; Tobacco user in household: Yes; Other: quit 09/2018; entered on: 01/04/19 Sex
--- OUTSIDE RECORDS SUMMARY | 2024-05-12 23:09 | XMS_ITS | Continuity of Care Document ---
Author Organization [facility] Address [address] [place] [address]- Care Team Providers Care Medical Program Specialist Name Role Phone Razia WILSON, Felix Denis Primary Care Physician [phone] [facility]counter [facility] Date[facility]s): 03/24/24 - 04/23/24 [facility] [address] [place] [address]- [place] Allergies, Adverse Reactions, Alerts Substance Reaction Severity Status Venofer 1 bleeding hypotension Active 1hypotension Immunizations Given and Recorded Vaccine Date Status Refusal Reason RSV vaccine preF3, recombinant 09/24/23 Recorded pneumococcal 20-valent conjugate vaccine 07/27/23 Recorded influenza virus vaccine, inactivated 07/13/23 Faraz rded influenza virus vaccine, inactivated 06/10/22 Faraz rded influenza virus vaccine, inactivated 06/07/21 Faraz rded influenza virus vaccine, inactivated 05/27/20 Faraz rded SARS-CoV-2(COVID-19)mRNA-LNP vac([id number]) 07/09/23 Recorded [id number] bivalent booster vax 04/22/23 Recorded [id number] bivalent booster vax 05/27/22 Recorded zoster vaccine, inactivated 09/09/22 Recorded zoster vaccine, inactivated 06/25/22 Recorded SARS-CoV-2 (COVID-19) mRNA-1273 vaccine 12/12/21 R ecorded [...] times a day, # 180 tablet, Refills 2, Maintenance, 04/11/24 9:46:00 EDT, Route to Pharmacy Electronically, [facility], 187.96, cm, 03/31/24 9:06:00 EDT, Height, 84.8, kg, 08/14/23 6:33:00 EST, Dry Weight Start Date: 04/11/24 Status: Ordered humidifier humidifier, See Instructions, # 1 each, Refills 0, Tot. Refills 0, Maintenance, humidified air mistsystem to be used at night, 11/18/23 15:15:00 EDT, Supply Start Date: 11/18/23 Status: Ordered Jantoven 5 mg oral tablet 1-2 TABLETS, By Mouth, Daily, PER PROTOCOL., # 135 tablet, 3 Refills, Maintenance, 10/12/23 9:09:00EST, [facility], 187.96, cm, 09/25/23 8:15:00 EST, Height, 84.8, kg, 08/14/23 6:33:00 EST, Dry Weight Start Date: 10/12/23 Status: Ordered Jantoven 5 mg oral tablet 0 Refills, Maintenance, 03/01/24 13:39:00 EDT, Partial fill upon patient request if the prescription is for a schedule II opioid drug. Start Date: 03/01/24 Status: Ordered Jardiance 10 mg oral tablet TAKE ONE TABLET BY MOUTH EVERY DAY Start Date: 03/24/24 Status: Ordered magnesium oxide 250 mg oral tablet 1 tablet = 250 mg, By Mouth, Daily at bedtime, # 14 tablet, 0 Refills, Maintenance, 07/11/19 13:56:15 EST, Tablet Start Date: 07/11/19 Status: Ordered metolazone 2.5 mg oral tablet TAKE 1 TABLET TWICE A WEEK DIRECTED Start Date: 03/24/24 Status: Ordered Nebulizer/Compressor See Instructions, # 1 each, Maintenance, Permanent end tracheostomy with tracheitis., 08/25/23 11:41:00 EST, Supply Start Date: 08/25/23 Status: Ordered omeprazole 20 mg oral enteric coated capsule 1 capsule, By Mouth, Daily, # 90 capsule, 1 Refills, Maintenance, 03/06/24 11:20:00 EDT, [facility], 187.96, cm, 03/01/24 13:39:00 EDT, Height, 84.8, kg, 08/14/23 6:33:00 EST, Dry Weight Start Date: 03/06/24 Status: Ordered simvastatin 20 mg oral tablet 20 mg, 1, tablet, By Mouth, Daily at bedtime, # 30 tablet, Refills 0, Tot. Refills 0, Maintenance, 06/06/21 14:06:00 EDT, Do Not Route, Partial fill upon patient request if the prescription is for a schedule II opioid drug. Start Date: 06/06/21 Status: Ordered sodium chloride 0.9% inhalation solution See Instructions, Use at least 3 times daily for tracheostoma humidification., # 180 each, 11 Refills, Maintenance, 08/25/23 13:12:00 EST, [facility], Partial fill upon patient request if the prescription is for a schedule II opioid drug... Start Date: 08/25/23 Status: Ordered spironolactone 25 mg oral tablet [...] 1 capsule = 61 mg, By Mouth, Daily in AM, swallow whole, # 90 capsule, 3 Refills, Maintenance, 09/11/23 12:06:00 EST, Capsule, [facility], Partial fill upon patient request if the prescription is for a schedule II opioid drug., 187.96... 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 Active Anemia Confirmed Active Afib Confirmed Active Cardiomyopathy Confirmed Active Chronic back pain Confirmed Active Chronic kidney disease, stage 3a 1 Confirmed Active Cirrhosis of liver Confirmed Active Contact dermatitis Confirmed Active CAD (coronary artery disease) Confirmed Active Muscle cramps Confirmed Active Fatigue Confirmed Active Heart failure with preserved ejection fraction Confirmed Active Hemoptysis Confirmed Active Hemoptysis Confirmed Active 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 Social History Social History Type Response Smoking Status Former smoker, quit more than 30 days ago entered on: 12/24/23 Sex Patient Care team information Care Team Personnel Name: Chela Jung [place] Position: [facility] KENYETTA GIANG Member Role: Lifetime Consulting Physician Name: Aleks Rodriguez RN Position: [facility] Rad RN Member Role: Primary Care Nurse Name: Zuleyma Gonzales RN Position: [facility] SN RN Member Role: Primary Care Nurse Name: Lizabeth Montaño RN Position: [facility] RN Member Role: Primary Care Nurse Name: Osiris Portillo RN Position: [facility] RN Member Role: Primary Care Nurse Name: Mariana Ovalle RN Position: [facility] SN RN Member Role: Primary Care Nurse Name: Felix Randle MD Position: [facility] Physician - Primary Care Member Role: PCP Address: Address: [place] [address]- [place] Care Team Related Persons Name: LEONARD MCCOLLUM Address: home [address] [place] [address] Name: CLAUDIA LAI Address: home [place] [id number] [place] Name: HEBER DUKES
--- OUTSIDE RECORDS SUMMARY | 2024-05-12 23:09 | XMS_ITS | Continuity of Care Document ---
Author Organization [facility] Address [address] [place] [address]- Care Team Providers Care Pest Control Applicator Name Role Phone Felix Randle MD Primary Care Physician [place] [facility] 10/18/19 - 10/18/[address] [address]- [facility] Attending Physician: Felix Randle MD Allergies, Adverse [...] 01/06/19 14:03:00 EDT, Route to Pharmacy Electronically, [id number], [facility] Start Date: [...] 12/16/18 17:08:59 EDT, Route to Pharmacy Electronically, [id number], [facility]... Start Date: 12/16/18 Stop Date: 01/15/19 Status: Ordered lisinopril 2.5 mg oral tablet 2.5 mg, 1, tablet, By Mouth, Daily, # 30 tablet, Refills 5, Tot. Refills 5, Maintenance, 07/04/19 15:04:15 EDT, Route to Pharmacy Electronically, [id number], [facility] Start Date: 07/04/19 [...] tablet, Refills 5, Tot. Refills 5, Maintenance, 05/03/19 13:54:44 EDT, Route to Pharmacy Electronically, [id number], [facility] Start Date: 05/03/19 Stop Date: 10/30/19 Status: Ordered Prevacid 30 mg oral enteric [...] 09/20/19 10:26:00 EST, Route to Pharmacy Electronically, [facility], 187.96, cm, 07/11/19 13:54:00 EST, [...]
--- OUTSIDE RECORDS SUMMARY | 2024-05-12 23:09 | XMS_ITS | Continuity of Care Document ---
Author Organization [facility] Address [address] [place] [address]- Care Team Providers Care Integration Aide Name Role Phone Felix Randle MD Primary Care Physician [phone] Encounter [facility] Date(s): 06/13/20 - 07/13/20 [facility] [address] [place] [address] Attending Physician: Admtr, Azra Admitting Physician: AdmtrAzra Referring Physician: Admtr, Ar8 Allergies, Adverse Reactions, Alerts Substance Reaction Severity Status Venofer 1 Active 1hypotension Immunizations Given and Recorded Vaccine Date Status Refusal Reason pneumococcal 13-valent vaccine 10/17/18 Given Medications acetaminophen 325 mg oral tablet 650 mg, 2, tablet, By Mouth, Every 6 hours, for 30 days, # 240 tablet, Refills 0, Tot. Refills 0, Acute 07/27/20 8:29:00 EST, 06/27/20 8:29:00 EDT, Print Requisition, 185, cm, 06/27/20 6:30:00 EDT, Height, 83.3, kg, 06/25/20 6:00:00 EDT, Dry Weight Start Date: 06/27/20 Stop Date: 07/27/20 Status: Ordered aspirin 81 mg oral delayed release tablet 81 mg, 1, tablet, By Mouth, Daily, # 30 tablet, Refills 0, Maintenance, 06/25/20 6:23:00 EDT Start Date: 06/25/20 Status: Ordered Blood pressure monitor Blood pressure monitor, See Instructions, # 1 units, Refills 0, Tot. Refills 0, Maintenance, Test BP twice daily or when symptomatic DX HFrEF, 01/28/19 14:04:20 EDT, Compound Start Date: 01/28/19 Status: Ordered calcium carbonate 600 mg oral tablet 1 tablet = 600 mg, By Mouth, Daily, # 60 tablet, 0 Refills, Maintenance, 06/12/20 8:57:00 EDT, Tablet Start Date: 06/12/20 Status: Ordered digoxin 0.25 mg oral tablet 250 mcg, 1, tablet, By Mouth, Every Thursday, Thursday and Thursday, changes 01/26, # 13 tablet, Refills 3, Tot. Refills 3, Maintenance, 01/06/19 14:03:00 EDT, Route to Pharmacy Electronically, [id number], [facility] Start Date: 01/06/19 Stop Date: 05/06/19 Status: Ordered Docusate = 100 mg, By Mouth, Daily, 0 Refills, Maintenance, 06/12/20 9:02:00 EDT Start Date: 06/12/20 Status: Ordered ferrous sulfate 325 mg oral enteric coated tablet 325 mg, 1, tablet, By Mouth, 2 times a day, # 30 tablet, Refills 0, Maintenance, 06/12/20 8:58:00 EDT Start Date: 06/12/20 Status: Ordered Maalox Plus Liquid 30 mL, By Mouth, Every 4 hours, PRN Other, Heartburn, 0 Refills, Maintenance, 06/27/20 8:35:00 EDT,Suspension Start Date: 06/27/20 Status: Ordered magnesium oxide 250 mg oral tablet 1 tablet = 250 mg, By Mouth, Daily, # 14 tablet, 0 Refills, Maintenance, 07/11/19 13:56:15 EST, Tablet Start Date: 07/11/19 Status: Ordered metoprolol 25 mg oral tablet, extended release 25 mg, 1, tablet, By Mouth, Daily, # 30 tablet, Refills 5, Tot. Refills 5, Maintenance, 04/05/20 15:47:00 EDT, Route to Pharmacy Electronically, [facility], 187.96, cm, 07/11/19 13:54:00 EST, Height, 90, kg, 12/13/18 13:58:00 EDT, Dry We... Start Date: 04/05/20 Stop Date: 10/02/20 Status: Ordered Milk of Magnesia Liquid 30 mL, By Mouth, Daily, PRN Constipation, 0 Refills, Maintenance, 06/27/20 8:35:00 EDT, Suspension Start Date: 06/27/20 Status: Ordered MiraLax Powder 1 pack/packet = 17 Gm, By Mouth, Daily, 0 Refills, Maintenance, 06/27/20 8:35:00 EDT, Powder Start Date: 06/27/20 Status: Ordered omeprazole 20 mg oral enteric coated capsule TAKE ONE CAPSULE BY MOUTH EVERY DAY Start Date: 04/24/20 Status: Ordered pantoprazole 40 mg oral delayed release tablet = 40 mg, By Mouth, Daily, 0 Refills, Maintenance, 06/27/20 8:35:00 EDT, EC Tablet Start Date: 06/27/20 Status: Ordered senna 187 mg oral tablet 1 tablet = 8.6 mg, By Mouth, Daily at bedtime, for 30 days, hold for loose stool or diarrhea, # 30 tablet, 0 Refills, Acute 07/27/20 8:31:00 EST, 06/27/20 8:31:00 EDT, Tablet, 185, cm, 06/27/20 6:30:00 EDT, Height, 83.3, kg, 06/25/20 6:00:00 EDT, Dry... Start Date: 06/27/20 Stop Date: 07/27/20 Status: Ordered simvastatin 20 mg oral tablet 20 mg, 1, tablet, By Mouth, Daily at bedtime, # 30 tablet, Refills 0, Maintenance, 06/12/20 11:34:00 EDT Start Date: 06/12/20 Status: Ordered spironolactone 25 mg oral tablet 25 mg, 1, tablet, By Mouth, Daily, # 90 tablet, Refills 3, Tot. Refills 3, Maintenance, 09/20/19 10:26:00 EST, Route to Pharmacy Electronically, [facility], 187.96, cm, 07/11/19 13:54:00 EST, Height, 90, kg, 12/13/18 13:58:00 EDT, Dry We... Start Date: 09/20/19 Stop Date: 09/14/20 Status: Ordered Terazosin 10 mg, By Mouth, Daily at bedtime, Maintenance, 10/16/18 16:53:16 EST Start Date: 10/16/18 Status: Ordered torsemide 20 mg oral tablet 2 tablet = 40 mg, By Mouth, Daily, # 30 tablet, 0 Refills, Maintenance, 06/12/20 9:00:00 EDT, Tablet Start Date: 06/12/20 Status: Ordered Vitamin C 500 mg oral tablet 1 tablet = 500 mg, By Mouth, Daily, # 30 tablet, 0 Refills, Maintenance, 06/12/20 8:57:00 EDT, Tablet Start Date: 06/12/20 Status: Ordered warfarin 1 mg oral tablet See Instructions, Take 1-10 tablets daily as directed by [facility], # 150 tablet, 0 Refills, Maintenance, 06/27/20 8:33:00 EDT, Tablet, 185, cm, 06/27/20 6:30:00 EDT, Height, 83.3, kg, 06/25/20 6:00:00 EDT, Dry Weight Start Date: 06/27/20 Stop Date: 07/27/20 Status: Ordered Problem List Condition Effective Dates Status Health Status Inform ant CHF (congestive heart failure)(Confirmed) Active Primary cancer of larynx(Confirmed) Active Social History Social History Type Response Smoking Status Former smoker, quit more than 30 days ago; Tobacco user in household: Yes; Other: quit 09/2018; entered on: 01/04/19 Sex Male
--- OUTSIDE RECORDS SUMMARY | 2024-05-12 23:09 | XMS_ITS | Continuity of Care Document ---
Author Organization [facility] Address [address] [address]- Care Team Providers Care Process Developer Name Role Phone Razia WILSON, Felix Denis Primary Care Physician [phone] [facility]counter [facility] Date(s): 08/20/21 - 10/17/21 [facility] [address] [address]- Attending Physician: Lory Leonard MD Admitting Physician: Lory Leonard MD Referring Physician: Lory Leonard MD Allergies, [...]
--- OUTSIDE RECORDS SUMMARY | 2024-05-12 23:09 | XMS_ITS | Continuity of Care Document ---
Author Organization [facility] Address [address] [place] [address] [address]abel, [address] [place] [address]- Care Team Providers Care Printing Mechanist Name Role Phone Razia WILSON, Felix Denis Primary Care Physician [facility] Date(s): 09/10/22 - 10/10/22 [facility] [address] [place] [address], [address] [place], [place] [address] Allergies, Adverse Reactions, Alerts Substance Reaction Severity [...] times a day, # 180 tablet, Refills 1, Tot. Refills 1, Maintenance, 07/01/22 10:41:00 EDT, Route to Pharmacy Electronically, [facility], Partial fill upon patient request if the prescription is for a schedul... Start Date: 07/01/22 Stop Date: 12/28/22 Status: Ordered Jantoven 5 mg oral tablet 1-2 TABLETS, By Mouth, Daily, PER PROTOCOL., # 135 tablet, 3 Refills, Maintenance, 08/25/22 9:47:00EST, [facility], 187.96, cm, 07/03/22 16:11:00 EDT, [...] Mouth, Daily, # 90 capsule, 0 Refills, 09/09/22 13:59:00 EST, [facility], 187.96, cm, 07/03/22 16:11:00 EDT, Height, 86.4, kg, 01/08/22 14:42:00 EDT, Dry Weight Start Date: 09/09/22 Status: Ordered simvastatin 20 mg oral tablet [...] Date: 06/06/21 Stop Date: 06/01/22 Status: Ordered tafamidis 61 mg oral capsule 1 capsule = 61 mg, By Mouth, Daily, # 30 capsule, 6 Refills, Maintenance, 09/10/22 13:44:00 EST, [facility], Partial fill upon patient request if the prescription is for a schedule II opioid drug., 187.96, cm, 09/10/22 12:48:00 EST, H... 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 Cardiomyopathy Confirmed Active Chronic kidney disease, stage 3a 1 Confirmed Active Cirrhosis of liver Confirmed Active CHF (congestive heart failure) Confirmed Active Contact dermatitis Confirmed Active CAD (coronary artery disease) Confirmed Active Muscle cramps Confirmed Active Heart failure with preserved ejection fraction Confirmed Active Hemoptysis Confirmed Active S/P laryngectomy Confirmed Active Hyperlipidemia Confirmed Active HTN (hypertension) Confirmed Active Cervicalgia Confirmed Active Health care maintenance Confirmed Active Primary cancer of larynx Confirmed Active Rhinitis Confirmed Active Right inguinal hernia Confirmed Active 1Per chart review meeting GFR criteria Social History Social History Type Response Smoking Status Former smoker, quit more than 30 days ago; Tobacco user in household: Yes; Other: quit 09/2018; entered on: 01/04/19 Sex Patient Care team information Care Team Personnel Name: Chela Jung Position: [facility] KENYETTA GIANG Member Role: Lifetime Consulting Physician Name: Aleks Rodriguez RN Position: [facility] Ralph RN Member Role: Primary Care Nurse Name: Zuleyma Gonzales RN Position: [facility] RN Member Role: Primary Care Nurse Name: Osiris Croft PharmD Position: [facility] Associate Professional Member Role: Lifetime Consulting Provider Address: Address: [address] [place] [address]- Name: Lizabeth Montaño RN Position: [facility] RN Member Role: Primary Care Nurse Name: Osiris Portillo RN Position: [facility] RN Member Role: Primary Care Nurse Name: Mariana Ovalle RN Position: [facility] RN Member Role: Primary Care Nurse Name: Felix Randle MD Position: [facility] Primary Care Physician Member Role: PCP Address: Address: [address] [place] [address]- Care Team Related Persons Name: LEONARD MCCOLLUM Address: home [address] [facility] [place] [address] Name: CLAUDIA LAI Address: home [place]KNOWN [id number] Name: HEBER DUKES
--- OUTSIDE RECORDS SUMMARY | 2024-05-12 23:10 | XMS_ITS | Continuity of Care Document ---
Author Organization [facility] Address [address] [place] [address] [address], [address] [place] [address]- Care Team Providers Care Machine Icer Name Role Phone Felix Randle MD Primary Care Physician [phone] [facility] Date(s): 07/28/23 - 10/02/23 [facility] [address] [place] [address], [address] [place], [place] [address] Attending Physician: Tasneem Siddiqui MD Allergies, Adverse Reactions, Alerts Substance Reaction Severity Status Venofer 1 bleeding hypotension Active 1hypotension Immunizations Given and Recorded Vaccine Date Status Refusal Reason pneumococcal 20-valent conjugate vaccine 07/27/23 Recorded influenza virus vaccine, inactivated 07/13/23 Faraz rded influenza virus vaccine, inactivated 06/10/22 Faraz rded influenza virus vaccine, inactivated 06/07/21 Faraz rded influenza virus vaccine, inactivated 05/27/20 Faraz rded SARS-CoV-2(COVID-19)mRNA-LNP vac([id number]) 07/09/23 Recorded [id number] bivalent booster vax 04/22/23 Recorded [id number] bivalent booster vax 05/27/22 Recorded zoster vaccine, inactivated 09/09/22 Recorded zoster vaccine, inactivated 06/25/22 Recorded SARS-CoV-2 (COVID-19) mRNA-1273 vaccine 12/12/21 R ecorded SARS-CoV-2 (COVID-19) mRNA-1273 vaccine 07/03/21 R ecorded SARS-CoV-2 (COVID-19) mRNA-1273 vaccine 12/01/20 G iven SARS-CoV-2 (COVID-19) mRNA-1273 vaccine 11/03/20 G iven pneumococcal 23-valent vaccine 08/06/19 Recorded pneumococcal 13-valent vaccine 10/17/18 Given tetanus/diphtheria/pertussis, acel(Tdap) 08/03/12 Recorded Medications baclofen 10 mg oral tablet 10 mg, 1, tablet, By Mouth, Daily at bedtime, # 30 tablet, Refills 1, Tot. Refills 1, Maintenance, 07/22/23 11:59:00 EST, Route to Pharmacy Electronically, [facility], Partial fill upon patient request if the prescription is for a schedu... Start Date: 07/22/23 Status: Ordered calcium carbonate 600 mg oral [...] sulfate 325 mg oral enteric coated tablet See Instructions, TAKE 1 TABLET BY MOUTH TWICE DAILY, # 180 tablet, Refills 1, Maintenance, 07/22/23 11:51:00 EST, Instructions Replace Required Details, Route to Pharmacy Electronically, [facility], 188, cm, 07/22/23 11:30:00 EST, Kary... Start Date: 07/22/23 Status: Ordered Jantoven 5 mg oral tablet 1-2 TABLETS, By Mouth, Daily, PER PROTOCOL., # 135 tablet, 3 Refills, Maintenance, 08/25/22 9:47:00EST, [facility], 187.96, cm, [...] Date: 06/06/21 Stop Date: 12/03/21 Status: Ordered Nebulizer/Compressor See Instructions, # 1 each, Maintenance, Permanent end tracheostomy with tracheitis., 08/25/23 11:41:00 EST, Supply Start Date: 08/25/23 Status: Ordered omeprazole 20 mg oral enteric coated capsule 1 capsule, By Mouth, Daily, # 90 capsule, 1 Refills, Maintenance, 09/06/23 13:58:00 EST, [facility], 187.96, cm, 09/03/23 10:59:00 EST, Height, 84.8, kg, 08/14/23 6:33:00 EST, Dry Weight Start Date: 09/06/23 Status: Ordered simvastatin 20 mg oral tablet [...] Refills, Maintenance, 08/25/23 13:12:00 EST, [facility], Partial fill [...] 3 Refills, Maintenance, 09/11/23 12:06:00 EST, Capsule, [facility], Partial fill upon patient [...] 30 days ago entered on: 02/17/23 Sex Patient Care team information Care Team Personnel Name: Chela Jung MA Position: [facility] MA Member Role: Lifetime Consulting Physician Name: Aleks Rodriguez RN [facility] Rad RN Member Role: Primary Care Nurse Name: Zuleyma Gonzales RN Position[facility] RN Member Role: Primary Care Nurse Name: Osiris Croft PharmD Position[facility] Associate Professional Member Role: Lifetime Consulting Provider Address: Address: [address] [place] [address]- Name: Lizabeth Montaño RN Position: [facility] RN Member Role: Primary Care Nurse Name: Osiris Portillo RN Position[facility] RN Member Role: Primary Care Nurse Name: Mariana Ovalle RN Position: [facility] SN RN Member Role: Primary Care Nurse Name: Felix Randle MD Position: [facility] Physician - Primary Care Member Role: PCP Address: Address: [address] [place] [address]- Care Team Related Persons Name: LEONARD MCCOLLUM Address: home [address] [place] [address] Name: CLAUDIA LAI Address: home [place] [id number] Name: HEBER DUKES
--- OUTSIDE RECORDS SUMMARY | 2024-05-12 23:10 | XMS_ITS | Continuity of Care Document ---
Author Organization [facility] ter Address [address] [place] [address]- Care Team Providers Care Cheese Cook Name Role Phone Razia WILSON, Felix Denis Primary Care Physician [facility] Date(s): 10/23/23 - 10/23/[address] [address] Attending Physician: Susana Quintana PharmD Allergies, Adverse Reactions, Alerts Substance Reaction Severity Status Venofer 1 bleeding hypotension Active 1hypotension Immunizations Given and Recorded Vaccine Date Status Refusal Reason pneumococcal 20-valent conjugate vaccine 07/27/23 Recorded influenza virus vaccine, inactivated 07/13/23 Faraz rded influenza virus vaccine, inactivated 06/10/22 Faraz rded influenza virus vaccine, inactivated 06/07/21 Faraz rded influenza virus vaccine, inactivated 05/27/20 Faraz rded SARS-CoV-2(COVID-19)mRNA-LNP vac([id number]) 07/09/23 Recorded [id number] bivalent booster vax 04/22/23 Recorded [id number] bivalent booster vax 05/27/22 Recorded zoster vaccine, [...] 07/22/23 11:59:00 EST, Route to Pharmacy Electronically, [facility], Partial fill upon patient request [...] Replace Required Details, Route to Pharmacy Electronically, [facility], 188, cm, 07/22/23 11:30:00 EST, Heigh... Start Date: 07/22/23 Status: Ordered Jantoven 5 mg oral tablet 1-2 TABLETS, By Mouth, Daily, PER PROTOCOL., # 135 tablet, 3 Refills, Maintenance, 10/12/23 9:09:00EST, [facility], 187.96, cm, 09/25/23 8:15:00 EST, Height, 84.8, kg, 08/14/23 6:33:00 EST, Dry Weight Start Date: 10/12/23 Status: Ordered lisinopril 2.5 mg oral tablet [...] 1 Refills, Maintenance, 09/06/23 13:58:00 EST, [facility], 187.96, cm, 09/03/23 10:59:00 EST, [...] 3 Refills, Maintenance, 09/11/23 12:06:00 EST, Capsule, [facility], Partial fill upon patient request [...] more than 30 days ago entered on: 10/15/23 Sex Patient Care team information Care Team Personnel Name: Erich RAHAT Chela Tracee Position: [facility] [place] Member Role: Lifetime Consulting Physician Name: Aleks Rodriguez RN Position: [facility] Rad RN Member Role: Primary Care Nurse Name: Zuleyma Gonzales RN Position: [facility] RN Member Role: Primary Care Nurse Name: Osiris Croft PharmD Position: [facility] Associate Professional Member Role: Lifetime Consulting Provider Address: Address: [address] [place] [address] [place] [address]- Name: Lizabeth Montaño RN Position: [facility] RN Member Role: Primary Care Nurse Name: Osiris Portillo RN Position: [facility] RN Member Role: Primary Care Nurse Name: Mariana Ovalle RN Position: [facility] SN RN Member Role: Primary Care Nurse Name: Felix Randle MD Position: [facility] Physician - Primary Care Member Role: PCP Address: Address: [address] [place] [address]- Care Team Related Persons Name: LEONARD MCCOLLUM Address: home [address] [place] [address] Name: CLAUDIA LAI Address: home [place]KNOWN [id number] Name: HEBER DUKES
--- OUTSIDE RECORDS SUMMARY | 2024-05-12 23:10 | XMS_ITS | Continuity of Care Document ---
Author Organization [facility] ter Address [address] [place] [address]- Care Team Providers Care Roller Varnisher Name Role Phone Razia WILSON, Felix Denis Primary Care Physician Encounter [facility] Date(s): 09/27/19 - 10/04/[address] [address]- [facility] Attending Physician: Lory Leonard MD Allergies, Adverse Reactions, [...] 01/06/19 14:03:00 EDT, Route to Pharmacy Electronically, [id number], [facility] Start Date: [...] 12/16/18 17:08:59 EDT, Route to Pharmacy Electronically, [id number], [facility]... Start Date: 12/16/18 Stop Date: 01/15/19 Status: Ordered lisinopril 2.5 mg oral tablet 2.5 mg, 1, tablet, By Mouth, Daily, # 30 tablet, Refills 5, Tot. Refills 5, Maintenance, 07/04/19 15:04:15 EDT, Route to Pharmacy Electronically, [id number], [facility] Start Date: 07/04/19 [...] 05/03/19 13:54:44 EDT, Route to Pharmacy Electronically, [id number], [facility] Start Date: 05/03/19 Stop Date: [...] 09/20/19 10:26:00 EST, Route to Pharmacy Electronically, [facility], 187.96, cm, 07/11/19 13:54:00 EST, [...]
--- OUTSIDE RECORDS SUMMARY | 2024-05-12 23:10 | XMS_ITS | Continuity of Care Document ---
Author Organization [facility] ter Address [address] [place] [address]- Care Team Providers Care Ibm Websphere Portal Developer Name Role Phone Felix Randle MD Primary Care Physician Encounter [facility] Date(s): 09/20/19 - 09/27/[address] [address]- [facility] Attending Physician: Felix Randle MD Allergies, Adverse [...] 01/06/19 14:03:00 EDT, Route to Pharmacy Electronically, [id number], [facility] Start Date: [...] 12/16/18 17:08:59 EDT, Route to Pharmacy Electronically, [id number], [facility]... Start Date: 12/16/18 Stop Date: 01/15/19 Status: Ordered lisinopril 2.5 mg oral tablet 2.5 mg, 1, tablet, By Mouth, Daily, # 30 tablet, Refills 5, Tot. Refills 5, Maintenance, 07/04/19 15:04:15 EDT, Route to Pharmacy Electronically, [id number], [facility] Start Date: 07/04/19 [...] 05/03/19 13:54:44 EDT, Route to Pharmacy Electronically, [id number], [facility] Start Date: 05/03/19 Stop Date: [...] 09/20/19 10:26:00 EST, Route to Pharmacy Electronically, [facility], 187.96, cm, 07/11/19 13:54:00 EST, [...]
--- OUTSIDE RECORDS SUMMARY | 2024-05-12 23:10 | XMS_ITS | Continuity of Care Document ---
Author Organization [facility] ter Address [address] [place] [address]- Care Team Providers Care Roll Contour Grinder Name Role Phone Felix Randle MD Primary Care Physician [facility] Date(s): 08/14/23 - 08/14/[address] [address] Discharge Disposition: A-D/C Home Attending Physician: Tasneem Siddiqui MD Admitting Physician: Tasneem Siddiqui MD Referring Physician: Tasneem Siddiqui MD Allergies, Adverse Reactions, Alerts Substance Reaction Severity Status Venofer 1 bleeding hypotension Active 1hypotension Immunizations Given and Recorded Vaccine Date Status Refusal Reason influenza virus vaccine, inactivated 07/13/23 Faraz rded influenza virus vaccine, inactivated 06/10/22 Faraz rded influenza virus vaccine, inactivated 06/07/21 Faraz rded influenza virus vaccine, inactivated 05/27/20 Faraz rded SARS-CoV-2(COVID-19)mRNA-LNP vac([id number]) 07/09/23 Recorded [id number] bivalent booster vax 04/22/23 Recorded [id number] bivalent booster vax 05/27/22 Recorded zoster vaccine, inactivated 09/09/22 Recorded zoster vaccine, inactivated 06/25/22 Recorded SARS-CoV-2 (COVID-19) mRNA-1273 vaccine 12/12/21 R ecorded SARS-CoV-2 (COVID-19) mRNA-1273 vaccine 07/03/21 R ecorded SARS-CoV-2 (COVID-19) mRNA-1273 vaccine 12/01/20 G iven SARS-CoV-2 (COVID-19) mRNA-1273 vaccine 2/27/21 G iven pneumococcal 23-valent vaccine 08/06/19 Recorded pneumococcal 13-valent vaccine 10/17/18 Given tetanus/diphtheria/pertussis, acel(Tdap) 08/03/12 Recorded Medications baclofen 10 mg oral tablet 10 mg, 1, tablet, By Mouth, Daily at bedtime, # 30 tablet, Refills 1, Tot. Refills 1, Maintenance, 07/22/23 11:59:00 EST, Route to Pharmacy Electronically, [facility] [...] Replace Required Details, Route to Pharmacy Electronically, [facility], 188, cm, 07/22/23 [...] Mouth, Daily in AM, swallow whole, # 30 capsule, 0 Refills, [...] Procedure Date Related Diagnosis Body Site Status Bronchoscopy Completed Vital Signs Most recent to oldest [Reference Range]: 1 2 3 Height 187.96 cm (08/14/23 6:33 AM) 187.96 cm (08/12/23 1:43 PM) Weight 81.82 kg (08/12/23 1:43 PM) Oxygen Saturation [94-100 %] 94 % (08/14/23 9:30 AM) 93 % *L* (08/14/23 9:15 AM) 94 % (08/14/23 9:00 AM) Pulse Rate [55-90 bpm] 59 bpm (08/14/23 6:33 AM) Body Mass Index [18.5-24.99 kg/m2] 23.16 kg/m2 (08/12/23 1:43 PM) Blood Pressure [90-138/55-84 mm Hg] 115/61mm Hg (08/14/23 9:30 AM) 119/70mm Hg (08/14/23 9:15 AM) 109/55mm Hg (08/14/23 9:00 AM) Respiratory Rate [16-30 br/min] 15 br/min *L* (08/14/23 9:30 AM) 13 br/min *L* (08/14/23 9:15 AM) 10 br/min *L* (08/14/23 9:00 AM) Temperature [96.8-100.4 DegF] 97.4 DegF (08/14/23 9:30 AM) 97.1 DegF (08/14/23 8:45 AM) 97 DegF (08/14/23 6:33 AM) Liters per Minute 6 L/min (08/14/23 8:45 AM) Mode of Delivery (Oxygen) Room air (08/14/23 9:30 AM) Room air (08/14/23 9:15 AM) Room air (08/14/23 9:00 AM) Blood pressure sites Arm, right (08/14/23 6:33 AM) Temperature Route Temporal (08/14/23 9:30 AM) Temporal (08/14/23 8:45 AM) Temporal (08/14/23 6:33 AM) Dry Weight 84.8 kg (08/14/23 6:33 AM) 81.82 kg (08/12/23 1:43 PM) Weight Obtained Via Patient/family state d (08/12/23 1:43 PM) Dry Weight Obtained Via Standing scale (08/14/23 6:33 AM) Patient/family stated (12/6/23 1:43 PM) Social History Social History Type Response Smoking Status Former smoker, quit more than 30 days ago entered on: 02/17/23 Sex Note * Osiris Uribe RN: PERFORM Event Display: Discharge/Transfer Note Hospital Authored Date: [id number] Nursing Discharge Note Entered On: 08/14/2023 9:45 EST Performed On: 08/14/2023 9:45 EST by Osiris Uribe RN Nursing Discharge Note 2 Discharge Time : 08/14/2023 9:45 EST Discharge Level of Care at Discharge : Home/Skilled Nursing/Foster Care Patient Left Unit Via : Wheelchair Patient Accompanied Off Unit with : Responsible adult DC Instructions Provided & Signed by Pt : Yes Patient Understands D/C Instructions : Yes Patient Instructions Discharge Signed : Yes Osiris Uribe RN - 08/14/2023 9:45 EST * Osiris Uribe RN: PERFORM Event Display: Patient Education/Instruction Authored Date: [id number] Surgery Adult Discharge Instructions [place] [id number] Name: REGAN DUKES : 1950?? Visit: 08/14/2023 05:33?? Current Date: 08/14/2023 08:57 ?? Account: [id number]?? Surgery Discharge Instructions We would like to [...] and their families. Surveys are administered by [employer] ?? If further treatment with your primary care physician or another doctor is recommended, it is important for you to keep the appointment. Call your primary care physician or return to the Emergency Department immediately if your condition worsens, fails to improve, or new symptoms develop. If you need to find a doctor, you can call [facility] [employer] [facility] for a referral at [phone] or toll free at [phone] ([phone]) or log in to [email or web address].. ?? [facility], in keeping with [facility] guidance, no longer requires face masks for [...] a health care mike of your choosing. [employer] is a website that allows you to [...] upon your request. You can enroll at [email or web address] or register d uring your next office visit. You have been discharged from [facility], Patient Care Unit: PANU??. If you have any questions regarding these instructions after you leave, please call us and we will be happy to assist you. [facility] Your Care Team Attending Physician Tasneem Siddiqui MD?? Discharging Providers Johnathon WILSON, Cynthia Strange Reason for Admission HEMPTOSIS [facility] Your Diagnosis Hemoptysis Primary Care Provider Felix Randle MD? Advance Directive Health Care Proxy on File Yes - Health Care Proxy Yes - MOLST What to do next Instructions From Your Doctor ?? Orders? 08/14/23 8:33:00 EST?? Scheduled Follow-Up Appointments Thursday 2:00 PM EST ?? Where: [facility] [address] [place] [address]- Status: Pending Thursday 10:30 AM EST ?? With: Tasneem Siddiqui MD Where: [facility] [address] [place] [address]- Status: Pending You Need to Schedule the Following Appointments Follow Up with??Artur WILSON, Tasneem Howard Discharge Medications REGAN DUKES :1950 Visit Date:08/14/2023 Medications: Please continue your medications until treatment is completed or stopped by your provider. You may resume your daily prescription medications. Discuss any questions related to medications with your provider. What How Much When Instructions Next Dose Unchanged Ascorbic Acid (Vitamin C 500 mg oral tablet) 1 tab(s) Oral Daily in the morning Resume home medications as scheduled Unchanged Baclofen (baclofen 10 mg oral tablet) 1 tab(s) Oral Daily at Bedtime Resume home medications as scheduled Unchanged Calcium Carbonate (calcium carbonate 600 mg oral tablet) 1 tab(s) Oral Daily in the morning Resume home medications as scheduled Unchanged Digoxin (digoxin 0.25 mg oral tablet) 1 tab(s) Oral Thursday, Thursday and Thursday Duration: 30 Days changes ?? Resume home medications as scheduled Unchanged Docusate 100 Milligram Oral Twice a day Resume home medications as scheduled Unchanged Ferrous Sulfate (ferrous sulfate 325 mg oral enteric coated tablet) See instructions TAKE 1 TABLET BY MOUTH TWICE DAILY ?? Resume home medications as scheduled Unchanged Lisinopril (lisinopril 2.5 mg oral tablet) 1 tab(s) Oral Daily Resume home medications as scheduled Unchanged Magnesium Oxide (magnesium oxide 250 mg oral tablet) 1 tab(s) Oral Daily at Bedtime Resume home medications as scheduled Unchanged Metoprolol (metoprolol 25 mg oral tablet, extended release) 1 tab(s) Oral Daily Duration: 30 Days Resume home medications as scheduled Unchanged Omeprazole (omeprazole 20 mg oral enteric coated capsule) 1 capsule Oral Daily Resume home medications as scheduled Unchanged Simvastatin (simvastatin 20 mg oral tablet) 1 tab(s) Oral Daily at Bedtime Resume home medications as scheduled Unchanged Spironolactone (spironolactone 25 mg oral tablet) 1 tab(s) Oral Daily Duration: 90 Days Resume home medications as scheduled Unchanged tafamidis (Vyndamax 61 mg oral capsule) 1 capsule Oral Daily in the morning swallow whole ?? Resume home medications as scheduled Unchanged Terazosin (terazosin 10 mg oral capsule) 1 capsule Oral Daily at Bedtime Resume home medications as scheduled Unchanged Thiamine (Vitamin B1) Daily Resume home medications as scheduled Unchanged torsemide (torsemide 20 mg oral tablet) 2 tab(s) Oral Daily Resume home medications as scheduled Unchanged Warfarin (Jantoven 5 mg oral tablet) 1-2 TABLETS Oral Daily PER PROTOCOL. ?? Resume home medications as scheduled Allergies (NKA means No Known Allergies) Venofer??(bleeding, hypotension) Education Materials Below is the list of Educational Leaflet Providered with your Discharge Instructions. Surgery Medical Daystay Surgical Overnight Discharge Instructions?? Valuables and Belongings I fully understand and agree that [facility] accepts no responsibility for all my [...] encouraged to send valuables and belongings home. ?? Review of Valuable and Belonging List: With patient Possessions released to: to pacu / Lockers Date for Pt to Sign Valuables/Belongings: 08/14/23 06:33:00 ?? Valuables & Belongings ?? Clothes Electronic devices Jewelry Monetary Items Personal devices Miscellaneous Medications (Valuables) Valuables at Bedside Jacket, Pants, Shirt, Shoes, Undergarments Cell phone, Other: electrolarynx device Necklace ? Valuables Sent Home ? Valuables Sent to Security ? Other Discharge Information ? Pulmonary Rehab Status?? Pulmonary Rehab Discharge Status?? Respiratory Rate:??14 br/min??Low ? Common Emergency Awareness Tips IS IT A STROKE? Act FAST and Check for these signs: FACE Does the face look uneven? ARM Does one arm drift down? SPEECH Does their speech sound strange? TIME Call 9-1-1 at any sign of stroke ?? Heart [...] are strongly encouraged to quit. Please call [facility] [employer] Link at [phone] or [phone]) or log in to [email or web address] for referrals to smoking cessation programs. ?? The National Suicide Prevention Hotline is available 30/03 if you or someone you know needs to find a reason to keep living. By calling 3-683-977-Unemployment[employer]Extension.Org (3711) you'll be connected to a skilled, trained counselor at a crisis center in your area. SURGERY DISCHARGE INSTRUCTIONS SIGNATURE PAGE REGAN DUKES Location:[facility] Registration Date and Time:08/14/2023 05:33 EST Primary Care Physician: Razia WILSON, Felix Denis, Attending Physician: Artur WILSON, Tasneem Howard, I REGAN DUKES, have received the above patient education materials/instructions and have verbalized understanding. If ambulance or transport services are being used I further acknowledge being given a choice of service. ?? If you need to contact me, please call me at this number: . Patient/Test Lab Technician Name: Patient/Test Lab Technician Signature: Relationship to Patient: Witness Name/Signature: Date: Osiris Ceballos RN: PERFORM Event Display: Patient Education Leaflets Authored Date: [id number] Surgery Medical Daystay Surgical Overnight Discharge Instructions [...] Team Personnel Name: Chela Jung [place] Position: [facility] KENYETTA GIANG Member Role: Lifetime Consulting Physician Name: Aleks Rodriugez RN Position: [facility] Ralph RN Member Role: Primary Care Nurse Name: Zuleyma Gonzales RN Position: [facility] RN Member Role: Primary Care Nurse Name: Osiris Croft PharmD Position: [facility] Associate Professional Member Role: Lifetime Consulting Provider Address: Address: [address] [place] [address] [place] [address]- Name: Lizabeth Montaño RN Position: [facility] RN Member Role: Primary Care Nurse Name: Osiris Portillo RN Position: S RN Member Role: Primary Care Nurse Name: Mairana Ovalle RN Position: [facility] RN Member Role: Primary Care Nurse Name: Razia WILSON, Felix Denis Position: [facility] Physician - Primary Care Member Role: PCP Address: Address: [address] [place] [address]- Care Team Related Persons Name: LEONARD MCCOLLUM Address: home [address] [place] [address] Name: CLAUDIA LAI Address: home UNKNOWN [phone] Name: HEBER DUKES
--- OUTSIDE RECORDS SUMMARY | 2024-05-12 23:10 | XMS_ITS | Continuity of Care Document ---
Author Organization [facility] Address [address] [place] [address]- Care Team Providers Care Drug Abuse Treatment Specialist Name Role Phone Razia WILSON, Felix Denis Primary Care Physician [facility] Date[facility]s): 11/12/21 - 12/12/21 [facility] [address] [place] [address] Allergies, Adverse Reactions, Alerts Substance Reaction Severity Status Venofer 1 Active 1hypotension Immunizations Given and Recorded Vaccine Date Status Refusal Reason SARS-CoV-2 (COVID-19) mRNA-1273 vaccine 07/03/21 R ecorded [...] failure)(Confirmed) Active CAD (coronary artery disease)(Confirmed) Active Hemoptysis(Confirmed) Active Hyperlipidemia(Confirmed) Active HTN (hypertension)(Confirmed) Active Primary cancer of larynx(Confirmed) Active Rhinitis(Confirmed) Active Right inguinal hernia(Confirmed) Active Social History Social History Type Response Smoking Status Former smoker, quit more than 30 days ago; Tobacco user in household: Yes; Other: quit 09/2018; entered on: 01/04/19 Sex
--- OUTSIDE RECORDS SUMMARY | 2024-05-12 23:10 | XMS_ITS | Continuity of Care Document ---
Author Organization [facility] ter Address [address] [place] [address]- Care Team Providers Care Plater Apprentice Name Role Phone Razia WILSON, Felix Denis Primary Care Physician [phone] Encounter [facility] Date(s): 09/27/19 - 10/04/[address] [address]- [facility] Attending Physician: Dana Godoy MD Allergies, Adverse Reactions, Alerts Substance Reaction [...] 01/06/19 14:03:00 EDT, Route to Pharmacy Electronically, [id number], [facility] Start Date: [...] 12/16/18 17:08:59 EDT, Route to Pharmacy Electronically, [id number], [facility]... Start Date: 12/16/18 Stop Date: 01/15/19 Status: Ordered lisinopril 2.5 mg oral tablet 2.5 mg, 1, tablet, By Mouth, Daily, # 30 tablet, Refills 5, Tot. Refills 5, Maintenance, 07/04/19 15:04:15 EDT, Route to Pharmacy Electronically, [id number], [facility] Start Date: 07/04/19 [...] 05/03/19 13:54:44 EDT, Route to Pharmacy Electronically, [id number], [facility] Start Date: 05/03/19 Stop Date: [...] 09/20/19 10:26:00 EST, Route to Pharmacy Electronically, [facility], 187.96, cm, 07/11/19 13:54:00 EST, [...]
--- OUTSIDE RECORDS SUMMARY | 2024-05-12 23:10 | XMS_ITS | Continuity of Care Document ---
Author Organization [facility] Address [address] [place] [address]- Care Team Providers Care Sliver Handler Name Role Phone Felix Randle MD Primary Care Physician [phone] Encounter [facility] Date(s): 02/27/21 - 03/29/21 [facility] [address] [place] [address]- Attending Physician: Azra Woods Admitting Physician: AdmtrAzra Referring Physician: Admtr, Ar8 Allergies, Adverse Reactions, Alerts Substance Reaction Severity Status Venofer 1 Active 1hypotension Immunizations Given and Recorded Vaccine Date Status Refusal Reason SARS-CoV-2 (COVID-19) mRNA-1273 vaccine 12/01/20 G iven SARS-CoV-2 (COVID-19) mRNA-1273 vaccine 11/03/20 G iven pneumococcal 13-valent vaccine 10/17/18 Given Medications aspirin 81 mg oral delayed release tablet [...] 01/06/19 14:03:00 EDT, Route to Pharmacy Electronically, [id number], [facility] Start Date: 01/06/19 Stop Date: [...] 04/05/20 15:47:00 EDT, Route to Pharmacy Electronically, [facility], 187.96, cm, 07/11/19 13:54:00 EST, [...] EC Tablet Start Date: 06/27/20 Status: Ordered PEG-3350 with Electrolytes (Eqv-NuLYTELY) oral powder for reconstitution See Instructions, Please follow instructions from GI; NOT the instructions in the package insert., # 1 kit, 0 Refills, Maintenance, 02/27/21 12:52:00 EDT, [facility], Okay to substitute with any gallon bowel prep., Please follow instruct... Start Date: 02/27/21 Status: Ordered simvastatin 20 mg oral tablet 20 mg, 1, tablet, By Mouth, Daily at bedtime, # 30 tablet, Refills 0, Maintenance, 06/12/20 11:34:00 EDT Start Date: 06/12/20 Status: Ordered spironolactone 25 mg oral tablet 25 mg, 1, tablet, By Mouth, Daily, # 90 tablet, Refills 3, Tot. Refills 3, Maintenance, 09/20/19 10:26:00 EST, Route to Pharmacy Electronically, [facility], 187.96, cm, 07/11/19 13:54:00 EST, [...] Take 1-10 tablets daily as directed by [facility], # 150 tablet, 0 Refills, Maintenance, 06/27/20 [...]
--- OUTSIDE RECORDS SUMMARY | 2024-05-12 23:10 | XMS_ITS | Continuity of Care Document ---
Author Organization [facility] Address [address] [place] [address], [address] [place] [address]- Care Team Providers Care Activity Therapist Name Role Phone Felix Randle MD Primary Care Physician [facility]counter [facility] Date(s): 08/25/23 - 09/24/23 [facility] [address] [place] [address], [address] [place], [place] [address] Allergies, Adverse Reactions, Alerts Substance Reaction Severity Status Venofer 1 bleeding hypotension Active 1hypotension Immunizations Given and Recorded Vaccine Date Status Refusal Reason pneumococcal 20-valent conjugate vaccine 07/27/23 Recorded influenza virus vaccine, inactivated 07/13/23 Faraz rded influenza virus vaccine, inactivated 06/10/22 Faraz rded influenza virus vaccine, inactivated 06/07/21 Faraz rded influenza virus vaccine, inactivated 05/27/20 Faraz rded SARS-CoV-2(COVID-19)mRNA-LNP vac([id number]) 07/09/23 Recorded [id number] bivalent booster vax 04/22/23 Recorded [id number] bivalent booster vax 05/27/22 Recorded zoster vaccine, [...] 07/22/23 11:59:00 EST, Route to Pharmacy Electronically, [facility], Partial fill upon patient request [...] Replace Required Details, Route to Pharmacy Electronically, [facility], 188, cm, 07/22/23 11:30:00 EST, [...] 1 Refills, Maintenance, 09/06/23 13:58:00 EST, [facility], 187.96, cm, 09/03/23 10:59:00 EST, [...] 3 Refills, Maintenance, 09/11/23 12:06:00 EST, Capsule, [facility], Partial fill upon patient [...] Team Personnel Name: Chela Jung MA Position: [facility] MA Member Role: Lifetime Consulting Physician Name: Aleks Rodriguez RN Position: [facility] Rad RN Member Role: Primary Care Nurse Name: Zuleyma Gonzales RN Position: [facility] RN Member Role: Primary Care Nurse Name: Osiris Croft PharmD Position: [facility] Associate Professional Member Role: Lifetime Consulting Provider Address: Address: [address] [place] [address]- Name: Lizabeth Montaño RN Position: [facility] RN Member Role: Primary Care Nurse Name: Osiris Portillo RN Position: [facility] RN Member Role: Primary Care Nurse Name: Mariana Ovalle RN Position: [facility] SN RN Member Role: Primary Care Nurse Name: Felix Randle MD Position: [facility] Physician - Primary Care Member Role: PCP Address: Address: [address] [place] [address]- Care Team Related Persons Name: LEONARD MCCOLLUM Address: home [address] [place] [address] Name: CLAUDIA LAI Address: home [place] [phone] Name: HEBER DUKES
--- OUTSIDE RECORDS SUMMARY | 2024-05-12 23:10 | XMS_ITS | Continuity of Care Document ---
Author Organization [facility] Address [address] [place] [address]- Care Team Providers Care Building Code Administrator Name Role Phone Felix Randle MD Primary Care Physician [phone] [place] [facility] [place] - 10/10/22 [facility] [address] [place] [address]- Attending Physician: Azra Woods Admitting Physician: AdmtrAzra [...] 07/01/22 10:41:00 EDT, Route to Pharmacy Electronically, [facility], Partial fill upon patient request if the prescription is for a schedul... Start Date: 07/01/22 Stop Date: 12/28/22 Status: Ordered Jantoven 5 mg oral tablet 1-2 TABLETS, By Mouth, Daily, PER PROTOCOL., # 135 tablet, 3 Refills, Maintenance, 08/25/22 9:47:00EST, [facility], 187.96, cm, 07/03/22 16:11:00 EDT, [...] capsule, 6 Refills, Maintenance, 09/10/22 13:44:00 EST, [facility], Partial fill upon patient [...] Care Team Personnel Name: Chela Jung Position: [facility] KENYETTA GIANG Member Role: Lifetime Consulting Physician Name: Aleks Rodriguez RN Position: [facility] Ralph RN Member Role: Primary Care Nurse Name: Zuleyma Gonzales RN Position: [facility] RN Member Role: Primary Care Nurse Name: Osiris Croft PharmD Position: [facility] Associate Professional Member Role: Lifetime Consulting Provider Address: Address: [address] [place] [address]- Name: Lizabeth Montaño RN Position: [facility] RN Member Role: Primary Care Nurse Name: Osiris Portillo RN Position: [facility] RN Member Role: Primary Care Nurse Name: Mariana Ovalle RN Position: [facility] RN Member Role: Primary Care Nurse Name: Felix Randle MD Position: [facility] Primary Care Physician Member Role: PCP Address: Address: [address] [place] [address]- Care Team Related Persons Name: LEONARD MCCOLLUM Address: home [address] [facility] [place] [address] Name: CLAUDIA LAI Address: home [place]KNOWN [phone] Name: HEBER DUKES
--- OUTSIDE RECORDS SUMMARY | 2024-05-12 23:10 | XMS_ITS | Continuity of Care Document ---
Author Organization [facility] ter Address [address] [place] [address]- Care Team Providers Care Station Usher Name Role Phone Felix Randle MD Primary Care Physician [phone] [place] [facility] [place] - 08/09/[address] [address] Discharge Disposition: A-D/C Home Attending Physician: Ras Mora MD Admitting Physician: Ras Mora MD Referring Physician: Ras Mora MD Allergies, Adverse Reactions, Alerts Substance Reaction [...] of larynx(Confirmed) Active Right inguinal hernia(Confirmed) Active Vital Signs Most recent to oldest [Reference Range]: 1 2 Height 185 cm (08/09/21 10:05 AM) 185 cm (08/09/21 9:47 AM) Weight 87.5 kg (08/09/21 10:05 AM) 87.5 kg (08/09/21 9:47 AM) Oxygen Saturation [94-100 %] 97 % (08/09/21 9:53 AM) Pulse Rate [55-90 bpm] 64 bpm (08/09/21 9:53 AM) Blood Pressure [90-138/55-84 mm Hg] 114/ 89mm Hg (08/09/21 9:53 AM) Respiratory Rate [16-30 br/min] 17 br/mi n (08/09/21 9:53 AM) Temperature [96.8-100.4 DegF] 98.2 DegF (08/09/21 9:53 AM) Mode of Delivery (Oxygen) Room air (08/09/21 9:53 AM) Blood pressure sites Arm, left (08/09/21 9:53 AM) Temperature Route Oral (08/09/21 9:53 AM) Dry Weight 87.5 kg (08/09/21 9:47 AM) Social History Social History Type Response Smoking Status Former smoker, quit more than 30 days ago; Tobacco user in household: Yes; Other: quit 09/2018; entered on: 01/04/19 Sex
--- OUTSIDE RECORDS SUMMARY | 2024-05-12 23:10 | XMS_ITS | Continuity of Care Document ---
Author Organization [facility] ter Address [address] [place] [address]- Care Team Providers Care Piece Work Checker Name Role Phone Felix Randle MD Primary Care Physician En[place] [facility] [place] Date(s): 01/08/22 - 01/08/[address] [address] Discharge Disposition: A-D/C Home Attending Physician: [...] EST, Tablet Start Date: 07/11/19 Status: Ordered Vitamin C 500 mg oral [...] Active Rhinitis(Confirmed) Active Right inguinal hernia(Confirmed) Active Vital Signs Most recent to oldest [Reference Range]: 1 2 3 Height 187.96 cm (01/08/22 2:42 PM) 187.96 cm (01/07/22 1:28 PM) Weight 87.27 kg (01/08/22 2:42 PM) 87.27 kg (01/07/22 1:28 PM) Oxygen Saturation [94-100 %] 96 % (01/08/22 5:30 PM) 96 % (01/08/22 5:15 PM) 96 % (01/08/22 5:00 PM) Pulse Rate [55-90 bpm] 61 bpm (01/08/22 2:42 PM) Body Mass Index [18.5-24.99] 24.7 (01/08/22 2:42 PM) 24.7 (01/07/22 1:28 PM) Blood Pressure [90-138/55-84 mm Hg] 103/52mm Hg (01/08/22 5:30 PM) 107/60mm Hg (01/08/22 5:15 PM) 113/56mm Hg (01/08/22 5:00 PM) Respiratory Rate [16-30 br/min] 18 br/min (01/08/22 5:30 PM) 22 br/min (01/08/22 5:15 PM) 23 br/min (01/08/22 5:00 PM) Temperature [96.8-100.4 DegF] 97.2 DegF (01/08/22 5:15 PM) 98.0 DegF (01/08/22 4:15 PM) 98.1 DegF (01/08/22 2:42 PM) Liters per Minute 6 L/min (01/08/22 4:15 PM) Mode of Delivery (Oxygen) Room air (01/08/22 5:15 PM) Room air (01/08/22 4:45 PM) Trach mask (01/08/22 4:15 PM) Blood pressure sites Arm, right (01/08/22 5:15 PM) Arm, right (01/08/22 4:15 PM) Arm, right (01/08/22 2:42 PM) Temperature Route Temporal (01/08/22 5:15 PM) Temporal (01/08/22 4:15 PM) Temporal (01/08/22 2:42 PM) Dry Weight 86.4 kg (01/08/22 2:42 PM) Weight Obtained Via Patient/family state d (01/07/22 1:28 PM) Dry Weight Obtained Via Standing scale (01/08/22 2:42 PM) Social History Social History Type Response Smoking Status Former smoker, quit more than 30 days ago; Tobacco user in household: Yes; Other: quit 09/2018; entered on: 01/04/19 Sex
--- OUTSIDE RECORDS SUMMARY | 2024-05-12 23:10 | XMS_ITS | Continuity of Care Document ---
Author Organization [facility] Address [address] [place] [address]- Care Team Providers Care Spine Surgeon Name Role Phone Razia WILSON, Felix Denis Primary Care Physician [phone] En[place] [facility] [place] Date(s): 08/05/21 - 09/06/21 [facility] [address] [place] [address]- Attending Physician: Bar Thomas MD Admitting Physician: Bar Thomas MD Referring Physician: Felix Randle MD Allergies, [...]
--- OUTSIDE RECORDS SUMMARY | 2024-05-12 23:10 | XMS_ITS | Continuity of Care Document ---
Author Organization [facility] Address [address] [place] [address]- Care Team Providers Care Reefer Engineer Name Role Phone Razia WILSON, Felix Denis Primary Care Physician Encounter [facility] [place] Date(s): 02/17/22 - 06/13/22 [facility] [address] [place] [address]- Attending Physician: Bar Thomas MD Admitting Physician: [...] Mouth, Daily, # 90 capsule, 0 Refills, 06/09/22 11:47:00 EDT, [facility], 187.96, cm, 05/16/22 8:51:00 EDT, Height, 86.4, kg, 01/08/22 14:42:00 EDT, Dry Weight Start Date: 06/09/22 Status: Ordered simvastatin 20 mg oral tablet [...] Date: 08/19/21 Status: Ordered Problem List Condition Confirmation Course Effective Dates Status H ealth Status Informant Medication induced coagulopathy Confirmed Active Anemia Confirmed Active Afib Confirmed Active 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 Cirrhosis of liver Confirmed Active CHF (congestive heart failure) Confirmed Active Contact dermatitis Confirmed Active CAD (coronary artery disease) Confirmed Active Muscle cramps Confirmed Active Hemoptysis Confirmed Active S/P laryngectomy Confirmed Active Hyperlipidemia Confirmed Active HTN (hypertension) Confirmed Active Cervicalgia Confirmed Active Health care maintenance Confirmed Active Primary cancer of larynx Confirmed Active Rhinitis Confirmed Active Right inguinal hernia Confirmed Active Social History Social History Type Response Smoking Status Former smoker, quit more than 30 days ago; Tobacco user in household: Yes; Other: quit 09/2018; entered on: 01/04/19 Sex Patient Care team information Personnel Name: Razia WILSON, Felix Denis Address: Address: [address] [place] [address]
--- OUTSIDE RECORDS SUMMARY | 2024-05-12 23:10 | XMS_ITS | Continuity of Care Document ---
Author Organization [facility] Address [address] [place] [address]- Care Team Providers Care Faculty Dean Name Role Phone Razia WILSON, Felix Denis Primary Care Physician [phone] [facility]counter [facility] Date(s): 11/20/21 - 12/20/21 [facility] [address] [place] [address] Allergies, Adverse Reactions, Alerts Substance Reaction [...]
--- OUTSIDE RECORDS SUMMARY | 2024-05-12 23:10 | XMS_ITS | Continuity of Care Document ---
Author Organization [facility] Address [address] [place] [address]- Care Team Providers Care Machine Skiver Name Role Phone Razia WILSON, Felix Denis Primary Care Physician [facility] Date(s): 10/30/23 - 11/29/23 [facility] [address] [place] [address] Allergies, Adverse Reactions, Alerts Substance Reaction Severity Status Venofer 1 bleeding hypotension Active 1hypotension Immunizations Given and Recorded Vaccine Date Status Refusal Reason pneumococcal 20-valent conjugate vaccine 07/27/23 Recorded influenza virus vaccine, inactivated 07/13/23 Faraz rded influenza virus vaccine, inactivated 06/10/22 Faraz rded influenza virus vaccine, inactivated 06/07/21 Faraz rded influenza virus vaccine, inactivated 05/27/20 Faraz rded SARS-CoV-2(COVID-19)mRNA-LNP vac([id number]) 07/09/23 Recorded [id number] bivalent booster vax 04/22/23 Recorded [id number] bivalent booster vax 05/27/22 Recorded zoster vaccine, [...] Replace Required Details, Route to Pharmacy Electronically, [facility], 188, cm, 07/22/23 11:30:00 EST, Kary... Start Date: 07/22/23 Status: Ordered humidifier humidifier, See Instructions, # 1 each, Refills 0, Tot. Refills 0, Maintenance, humidified air mistsystem to be used at night, 11/18/23 15:15:00 EDT, Supply Start Date: 11/18/23 Status: Ordered Jantoven 5 mg oral tablet 1-2 TABLETS, By Mouth, Daily, PER PROTOCOL., # 135 tablet, 3 Refills, Maintenance, 10/12/23 9:09:00EST, [facility], 187.96, cm, 09/25/23 8:15:00 EST, [...] 1 Refills, Maintenance, 09/06/23 13:58:00 EST, [facility], 187.96, cm, 09/03/23 10:59:00 EST, [...] 3 Refills, Maintenance, 09/11/23 12:06:00 EST, Capsule, [facility], Partial fill upon patient [...] Personnel Name: Chela Jung MA Position: [facility] MA Member Role: Lifetime Consulting Physician Name: Aleks Rodriguez RN Position: [facility] Rad RN Member Role: Primary Care Nurse Name: Zuleyma Gonzales RN Position: [facility] SN RN Member Role: Primary Care Nurse Name: Osiris Croft PharmD Position: [facility] Associate Professional Member Role: Lifetime Consulting Provider Address: Address: [address] [place] [address] [place] [address]- Name: Lizabeth Montaño RN Position: [facility] RN Member Role: Primary Care Nurse Name: Osiris Portillo RN Position: S RN Member Role: Primary Care Nurse Name: Mariana Ovalle RN Position: [facility] SN RN Member Role: Primary Care Nurse Name: Felix Randle MD Position: [facility] Physician - Primary Care Member Role: PCP Address: Address: [address] [place] [address]- Care Team Related Persons Name: LEONARD MCCOLLUM Address: home [address] [place] [address] Name: CLAUDIA LAI Address: home [place]KNOWN [phone] Name: HEBER DUKES
--- OUTSIDE RECORDS SUMMARY | 2024-05-12 23:10 | XMS_ITS | Continuity of Care Document ---
Author Organization [facility] ter Address [address] [place] [address]- Care Team Providers Care Rn Clinical Documentation Specialist Name Role Phone Felix Randle MD Primary Care Physician Encounter [facility] [place] Date(s): 01/06/20 - 01/07/[address] [address]- [facility] Attending Physician: Felix Randle MD Allergies, Adverse [...] 01/06/19 14:03:00 EDT, Route to Pharmacy Electronically, [id number], [facility] Start Date: [...] 12/16/18 17:08:59 EDT, Route to Pharmacy Electronically, [id number], [facility]... Start Date: 12/16/18 Stop Date: 01/15/19 Status: Ordered lisinopril 2.5 mg oral tablet 2.5 mg, 1, tablet, By Mouth, Daily, # 30 tablet, Refills 5, Tot. Refills 5, Maintenance, 07/04/19 15:04:15 EDT, Route to Pharmacy Electronically, [id number], [facility] Start Date: 07/04/19 [...] 10/31/19 10:21:00 EST, Route to Pharmacy Electronically, [facility], 187.96, cm, 07/11/19 13:54:00 EST, [...] 09/20/19 10:26:00 EST, Route to Pharmacy Electronically, [facility], 187.96, cm, 07/11/19 13:54:00 EST, [...]
--- OUTSIDE RECORDS SUMMARY | 2024-05-12 23:10 | XMS_ITS | Continuity of Care Document ---
Author Organization [facility] Address [address] [place] [address] isabel, [address] [place] [address]- Care Team Providers Care Cotton Tipper Name Role Phone Razia WILSON, Felix Denis Primary Care Physician [phone] [facility] Date(s): 09/19/22 - 10/19/22 [facility] [address] [place] [address], [address] [place] [address]- Allergies, Adverse Reactions, Alerts Substance Reaction Severity [...] 07/01/22 10:41:00 EDT, Route to Pharmacy Electronically, [facility], Partial fill upon patient request if the prescription is for a schedul... Start Date: 07/01/22 Stop Date: 12/28/22 Status: Ordered Jantoven 5 mg oral tablet 1-2 TABLETS, By Mouth, Daily, PER PROTOCOL., # 135 tablet, 3 Refills, Maintenance, 08/25/22 9:47:00EST, [facility], 187.96, cm, 07/03/22 16:11:00 EDT, [...] capsule, 6 Refills, Maintenance, 09/10/22 13:44:00 EST, [facility], Partial fill upon patient request [...] Care Team Personnel Name: Chela Jung Position: [facility] KENYETTA GIANG Member Role: Lifetime Consulting Physician Name: Aleks Rodriguez RN Position: [facility] Ralph RN Member Role: Primary Care Nurse Name: Zuleyma Gonzales RN Position: [facility] RN Member Role: Primary Care Nurse Name: Osiris Croft PharmD Position: [facility] Associate Professional Member Role: Lifetime Consulting Provider Address: Address: [address] [place] [address]- Name: Lizabeth Montaño RN Position: [facility] RN Member Role: Primary Care Nurse Name: Osiris Portillo RN Position: [facility] RN Member Role: Primary Care Nurse Name: Mariana Ovalle RN Position: [facility] RN Member Role: Primary Care Nurse Name: Felix Randle MD Position: [facility] Primary Care Physician Member Role: PCP Address: Address: [address] [place] [address]- Care Team Related Persons Name: LEONARD MCCOLLUM Address: home [address] [facility] [place] [address] Name: CLAUDIA LAI Address: home [place]KNOWN [phone] Name: HEBER DUKES
--- OUTSIDE RECORDS SUMMARY | 2024-05-12 23:10 | XMS_ITS | Continuity of Care Document ---
Author Organization [facility] Address [address] [place] [address] isabel, [address] [place] [address]- Care Team Providers Care Vp Foundation Name Role Phone Felix Randle MD Primary Care Physician [facility] Date(s): 08/13/23 - 09/12/23 [facility] [address] [place] [address], [address] [place], [place] [address] Allergies, Adverse Reactions, Alerts Substance Reaction Severity Status Venofer 1 bleeding hypotension Active 1hypotension Immunizations Given and Recorded Vaccine Date Status Refusal Reason pneumococcal 20-valent conjugate vaccine 07/27/23 Recorded influenza virus vaccine, inactivated 07/13/23 Faraz rded influenza virus vaccine, inactivated 06/10/22 Faraz rded influenza virus vaccine, inactivated 06/07/21 Faraz rded influenza virus vaccine, inactivated 05/27/20 Faraz rded SARS-CoV-2(COVID-19)mRNA-LNP vac([id number]) 07/09/23 Recorded [id number] bivalent booster vax 04/22/23 Recorded [id number] bivalent booster vax 05/27/22 Recorded zoster vaccine, [...] 07/22/23 11:59:00 EST, Route to Pharmacy Electronically, [facility], Partial fill upon patient request [...] Replace Required Details, Route to Pharmacy Electronically, [facility], 188, cm, 07/22/23 11:30:00 EST, Heigh... Start Date: 07/22/23 Status: Ordered Jantoven 5 mg oral tablet 1-2 TABLETS, By Mouth, Daily, PER PROTOCOL., # 135 tablet, 3 Refills, Maintenance, 08/25/22 9:47:00EST, [facility], 187.96, cm, 07/03/22 16:11:00 EDT, [...] 1 Refills, Maintenance, 09/06/23 13:58:00 EST, [facility], 187.96, cm, 09/03/23 10:59:00 EST, [...] 3 Refills, Maintenance, 09/11/23 12:06:00 EST, Capsule, [facility], Partial fill upon [...] Team Personnel Name: Chela Jung [place] Position: [facility] RAHAT Member Role: Lifetime Consulting Physician Name: Aleks Rodriguez RN Position: [facility] Rad RN Member Role: Primary Care Nurse Name: Zuleyma Gonzales RN Position: [facility] RN Member Role: Primary Care Nurse Name: Osiris Croft PharmD Position: [facility] Associate Professional Member Role: Lifetime Consulting Provider Address: Address: [address] [place] [address] [place] [address]- Name: Lizabeth Montaño RN Position: [facility] RN Member Role: Primary Care Nurse Name: Osiris Portillo RN Position: [facility] RN Member Role: Primary Care Nurse Name: Mariana Ovalle RN Position: [facility] SN RN Member Role: Primary Care Nurse Name: Felix Randle MD Position: [facility] Physician - Primary Care Member Role: PCP Address: Address: [address] [place] [address]- Care Team Related Persons Name: LEONARD MCCOLLUM Address: home [address] [place] [address] Name: CLAUDIA LAI Address: home [place]KNOWN [phone] Name: HEBER DUKES
--- OUTSIDE RECORDS SUMMARY | 2024-05-12 23:10 | XMS_ITS | Continuity of Care Document ---
Author Organization [facility] Address [address] [place] [address]- Care Team Providers Care Caterpillar Driver Name Role Phone Felix Randle MD Primary Care Physician [place] [facility] [id number] Date(s): 08/22/21 - 12/12/21 [facility] [address] [place] [address]- Attending Physician: Bar Thomas MD Admitting Physician: [...]
--- OUTSIDE RECORDS SUMMARY | 2024-05-12 23:10 | XMS_ITS | Continuity of Care Document ---
Author Organization [facility] ter Address [address] [place] [address]- Care Team Providers Care Cabin Crew Name Role Phone Felix Randle MD Primary Care Physician [phone] Encounter [facility] [place] Date(s): 10/11/19 - 10/11/[address] [address]- [facility] Attending Physician: Lory Leonard MD Allergies, [...] 01/06/19 14:03:00 EDT, Route to Pharmacy Electronically, [id number], [facility] Start Date: [...] 12/16/18 17:08:59 EDT, Route to Pharmacy Electronically, [id number], [facility]... Start Date: 12/16/18 Stop Date: 01/15/19 Status: Ordered lisinopril 2.5 mg oral tablet 2.5 mg, 1, tablet, By Mouth, Daily, # 30 tablet, Refills 5, Tot. Refills 5, Maintenance, 07/04/19 15:04:15 EDT, Route to Pharmacy Electronically, [id number], [facility] Start Date: 07/04/19 [...] 05/03/19 13:54:44 EDT, Route to Pharmacy Electronically, [id number], [facility] Start Date: 05/03/19 Stop Date: [...] 09/20/19 10:26:00 EST, Route to Pharmacy Electronically, [facility], 187.96, cm, 07/11/19 13:54:00 EST, [...]
--- OUTSIDE RECORDS SUMMARY | 2024-05-12 23:10 | XMS_ITS | Continuity of Care Document ---
Author Organization [facility] Address [address] [place] [address]- Care Team Providers Care Shoulder Sawyer Name Role Phone Razia WILSON, Felix Denis Primary Care Physician Encounter [facility] Date(s): 07/02/23 - 08/01/23 [facility] [address] [place] [address]- [place] Allergies, Adverse Reactions, Alerts Substance Reaction Severity Status Venofer 1 bleeding hypotension Active 1hypotension Immunizations Given and Recorded Vaccine Date Status Refusal Reason influenza virus vaccine, inactivated 07/13/23 Faraz rded influenza virus vaccine, inactivated 06/10/22 Faraz rded influenza virus vaccine, inactivated 06/07/21 Faraz rded influenza virus vaccine, inactivated 05/27/20 Faraz rded SARS-CoV-2(COVID-19)mRNA-LNP vac([id number]) 07/09/23 Recorded [id number] bivalent booster vax 04/22/23 Recorded [id number] bivalent booster vax 05/27/22 Recorded zoster vaccine, [...] 07/22/23 11:59:00 EST, Route to Pharmacy Electronically, [facility], Partial fill upon patient request [...] Replace Required Details, Route to Pharmacy Electronically, [facility], 188, cm, 07/22/23 11:30:00 EST, Kary... Start Date: 07/22/23 Status: Ordered Jantoven 5 mg oral tablet 1-2 TABLETS, By Mouth, Daily, PER PROTOCOL., # 135 tablet, 3 Refills, Maintenance, 08/25/22 9:47:00EST, [facility], 187.96, cm, 07/03/22 16:11:00 EDT, [...] Team Personnel Name: Chela Jung MA Position: [facility] KENYETTA GIANG Member Role: Lifetime Consulting Physician Name: Aleks Rodriguez RN Position: [facility] Ralph RN Member Role: Primary Care Nurse Name: Zuleyma Gonzales RN Position: [facility] RN Member Role: Primary Care Nurse Name: Osiris Croft PharmD Position: [facility] Associate Professional Member Role: Lifetime Consulting Provider Address: Address: [address] [facility] [place] [address]- Name: Lizabeth Montaño RN Position: [facility] RN Member Role: Primary Care Nurse Name: Osiris Portillo RN Position: [facility] RN Member Role: Primary Care Nurse Name: Mariana Ovalle RN Position: [facility] SN RN Member Role: Primary Care Nurse Name: Felix Randle MD Position: [facility] Physician - Primary Care Member Role: PCP Address: Address: [place] [address]- Care Team Related Persons Name: LEONARD MCCOLLUM Address: home [address] [place] [address] Name: CLAUDIA LAI Address: home [place]KNOWN [id number] Name: HEBER DUKES
--- OUTSIDE RECORDS SUMMARY | 2024-05-12 23:10 | XMS_ITS | Continuity of Care Document ---
Author Organization [facility] ter Address [address] [place] [address]- Care Team Providers Care Parcel Post Truck Driver Name Role Phone Razia WILSON, Felix Denis Primary Care Physician [phone] Encounter [facility] [place] Date(s): 09/20/19 - 09/27/[address] [address]- [facility] Attending Physician: Lory Leonard MD Allergies, Adverse [...] 01/06/19 14:03:00 EDT, Route to Pharmacy Electronically, [id number], [facility] Start Date: [...] 12/16/18 17:08:59 EDT, Route to Pharmacy Electronically, [id number], [facility]... Start Date: 12/16/18 Stop Date: 01/15/19 Status: Ordered lisinopril 2.5 mg oral tablet 2.5 mg, 1, tablet, By Mouth, Daily, # 30 tablet, Refills 5, Tot. Refills 5, Maintenance, 07/04/19 15:04:15 EDT, Route to Pharmacy Electronically, [id number], [facility] Start Date: 07/04/19 [...] 05/03/19 13:54:44 EDT, Route to Pharmacy Electronically, [id number], [facility] Start Date: 05/03/19 Stop Date: [...] 09/20/19 10:26:00 EST, Route to Pharmacy Electronically, [facility], 187.96, cm, 07/11/19 13:54:00 EST, [...]
--- OUTSIDE RECORDS SUMMARY | 2024-05-12 23:10 | XMS_ITS | Continuity of Care Document ---
Author Organization [facility] Address [address] [place] [address]- Care Team Providers Care Blind Hanger Name Role Phone Felix Randle MD Primary Care Physician [place] [facility] [place]s): 08/17/19 - 12/15/19 [facility] [address] [place] [address]- [facility] Attending Physician: Bar Thomas MD Admitting Physician: [...] 01/06/19 14:03:00 EDT, Route to Pharmacy Electronically, [id number], [facility] Start Date: [...] 12/16/18 17:08:59 EDT, Route to Pharmacy Electronically, [id number], [facility]... Start Date: 12/16/18 Stop Date: 01/15/19 Status: Ordered lisinopril 2.5 mg oral tablet 2.5 mg, 1, tablet, By Mouth, Daily, # 30 tablet, Refills 5, Tot. Refills 5, Maintenance, 07/04/19 15:04:15 EDT, Route to Pharmacy Electronically, [id number], [facility] Start Date: 07/04/19 Stop Date: 12/31/19 [...] 10/31/19 10:21:00 EST, Route to Pharmacy Electronically, [facility], 187.96, cm, 07/11/19 13:54:00 EST, [...] 09/20/19 10:26:00 EST, Route to Pharmacy Electronically, [facility], 187.96, cm, 07/11/19 13:54:00 EST, [...]
--- OUTSIDE RECORDS SUMMARY | 2024-05-12 23:10 | XMS_ITS | Continuity of Care Document ---
Author Organization [facility] ter Address [address] [place] [address]- Care Team Providers Care Four Corner Former Machine Operator Name Role Phone Felix Randle MD Primary Care Physician [place] [facility] [place](s): 09/01/19 - 09/01/[address] [address]- [facility] Attending Physician: Felix Randle MD [...] 01/06/19 14:03:00 EDT, Route to Pharmacy Electronically, [id number], [facility] Start Date: [...] 12/16/18 17:08:59 EDT, Route to Pharmacy Electronically, [id number], [facility]... Start Date: 12/16/18 Stop Date: 01/15/19 Status: Ordered lisinopril 2.5 mg oral tablet 2.5 mg, 1, tablet, By Mouth, Daily, # 30 tablet, Refills 5, Tot. Refills 5, Maintenance, 07/04/19 15:04:15 EDT, Route to Pharmacy Electronically, [id number], [facility] Start Date: 07/04/19 [...] 05/03/19 13:54:44 EDT, Route to Pharmacy Electronically, [id number], [facility] Start Date: 05/03/19 Stop Date: [...] tablet, Refills 3, Tot. Refills 3, Maintenance, 09/19/19 14:07:17 EST, Route to Pharmacy Electronically, [id number], [facility] Start Date: 09/19/19 Status: Ordered spironolactone 25 mg oral tablet 25 mg, 1, tablet, By Mouth, Daily, for 90 days, # 90 tablet, Refills 1, Tot. Refills 1, Hard Stop 09/19/19 14:07:17 EST, 03/23/19 14:07:17 EDT, Route to Pharmacy Electronically, [id number], [facility] Start Date: 03/23/19 Stop Date: 09/19/19 Status: Ordered Terazosin 10 mg, By Mouth, [...]
--- OUTSIDE RECORDS SUMMARY | 2024-05-12 23:10 | XMS_ITS | Continuity of Care Document ---
Author Organization [facility] Address [address] [place] [address]- Care Team Providers Care Plate Mill Mill Hand Name Role Phone Felix Randle MD Primary Care Physician [phone] [place] [facility] [place]13[place]21 - 09/12/21 [facility] [address] [place] [address]- [place] Allergies, Adverse Reactions, Alerts Substance Reaction [...]
--- OUTSIDE RECORDS SUMMARY | 2024-05-12 23:10 | XMS_ITS | Continuity of Care Document ---
Author Organization [facility] Address [address] [place] [address]- Care Team Providers Care Washer Hand Name Role Phone Razia WILSON, Felix Denis Primary Care Physician [place] [facility] [place] 04/07/22 - 05/07/[address] [facility] [address] [place] [address] Attending Physician: Azra Woods Admitting Physician: AdmAzra bateman Referring Physician: Admtr ArLakeshia Allergies, Adverse Reactions, Alerts Substance Reaction Severity [...] Dry Weight Start Date: 03/11/22 Status: Ordered predniSONE 20 mg oral tablet See Instructions, 2 tablet By Mouth Daily for 10 days, # 20 tablet, 0 Refills, Acute 02/18/23 15:36:00 EDT, 02/18/22 15:34:00 EDT, [facility], Partial fill upon patient request if the prescription is for a schedule II opioid drug., 187.9... Start Date: 02/18/22 Stop Date: 02/18/23 Status: Ordered simvastatin 20 mg oral tablet [...] drug. Start Date: 06/06/21 Status: Ordered Vitamin C 500 mg oral [...] dermatitis(Confirmed) Active CAD (coronary artery disease)(Confirmed) Active Hemoptysis(Confirmed) Active Hyperlipidemia(Confirmed) Active HTN (hypertension)(Confirmed) Active Primary cancer of larynx(Confirmed) Active Rhinitis(Confirmed) Active Right inguinal hernia(Confirmed) Active Social History Social History Type Response Smoking Status Former smoker, quit more than 30 days ago; Tobacco user in household: Yes; Other: quit 09/2018; entered on: 01/04/19 Sex Care Team Personnel Name: Razia WILSON, Felix Denis Address: [address] [place] [address]
--- OUTSIDE RECORDS SUMMARY | 2024-05-12 23:10 | XMS_ITS | Continuity of Care Document ---
Author Organization [facility] Address [address] [place] [address]- Care Team Providers Care Programming Engineer Name Role Phone Felix Randle MD Primary Care Physician [place] [facility] [place] 12[place]12[place]22 - 01/11/23 [facility] [address] [place] [address]- Attending Physician: Azra Woods Admitting Physician: Azra Woods Referring Physician: [id number] Allergies, Adverse Reactions, Alerts Substance Reaction Severity Status Venofer 1 bleeding hypotension Active 1hypotension Immunizations Given and Recorded Vaccine Date Status Refusal Reason zoster vaccine, inactivated 09/09/22 Recorded zoster vaccine, inactivated 06/25/22 Recorded influenza virus vaccine, inactivated 06/10/22 Faraz rded influenza virus vaccine, inactivated 06/07/21 Faraz rded influenza virus vaccine, inactivated 05/27/20 Faraz rded [id number] bivalent booster vax 05/27/22 Recorded SARS-CoV-2 (COVID-19) mRNA-1273 vaccine 12/12/21 R [...] 11/26/22 13:30:00 EDT, Route to Pharmacy Electronically, [facility], Partial fill upon patient request [...] a day, # 180 tablet, Refills 0, Tot. Refills 0, Maintenance, 01/05/23 8:24:00 EDT, Route to Pharmacy Electronically, [facility], Partial fill upon patient request if the prescription is for a schedule... Start Date: 01/05/23 Stop Date: 04/05/23 Status: Ordered Jantoven 5 mg [...] 0 Refills, 09/09/22 13:59:00 EST, [facility], 187.96, cm, 07/03/22 16:11:00 EDT, Height, 86.4, kg, 01/08/22 14:42:00 EDT, Dry Weight Start Date: 09/09/22 Status: Ordered omeprazole 20 mg oral enteric coated capsule See Instructions, TAKE ONE CAPSULE BY MOUTH EVERY DAY, # 90 capsule, 0 Refills, Maintenance, 11/26/22 13:30:00 EDT, [facility], 187.96, cm, 11/19/22 12:56:00 EDT, Height, 86.4, kg, 01/08/22 14:42:00 EDT, Dry Weight Start Date: 11/26/22 Status: Ordered simvastatin 20 mg oral tablet [...] capsule, 6 Refills, Maintenance, 09/10/22 13:44:00 EST, [facility], Partial fill upon patient [...] Confirmed Active Right inguinal hernia Confirmed Active 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 1Per chart review meeting GFR criteria Social History Social History Type Response Smoking Status Former smoker, quit more than 30 days ago; Tobacco user in household: Yes; Other: quit 09/2018; entered on: 01/04/19 Sex Patient Care team information Care Team Personnel Name: Chela Jung MA Position: [facility] MA Member Role: Lifetime Consulting Physician Name: Aleks Rodriguez RN Position: [facility] Ralph RN Member Role: Primary Care Nurse Name: Zuleyma Gonzales RN Position: [facility] RN Member Role: Primary Care Nurse Name: Osiris Croft PharmD Position: [facility] Associate Professional Member Role: Lifetime Consulting Provider Address: Address: [address] [place] [address] [place] [address]- Name: Lizabeth Montaño RN Position: [facility] RN Member Role: Primary Care Nurse Name: Osiris Portillo RN Position: [facility] RN Member Role: Primary Care Nurse Name: Mariana Ovalle RN Position: [facility] RN Member Role: Primary Care Nurse Name: Felix Randle MD Position: [facility] Primary Care Physician Member Role: PCP Address: Address: [address] [place] [address]- Care Team Related Persons Name: LEONARD MCCOLLUM Address: home [address] [place] [address] Name: CLAUDIA LAI Address: home [place]KNOWN [phone] UM Name: HEBER DUKES
--- OUTSIDE RECORDS SUMMARY | 2024-05-12 23:10 | XMS_ITS | Continuity of Care Document ---
Author Organization [facility] Address [address] [place] [address]- Care Team Providers Care Customer Account Coordinator Name Role Phone Felix Randle MD Primary Care Physician [facility]counter [facility] Date(s): 09/25/23 - 10/25/23 [facility] [address] [place] [address]- Attending Physician: Azra Woods Admitting Physician: AdmAzra bateman Referring Physician: [id number] Allergies, Adverse Reactions, Alerts Substance Reaction Severity Status Venofer 1 bleeding hypotension Active 1hypotension Immunizations Given and Recorded Vaccine Date Status Refusal Reason pneumococcal 20-valent conjugate vaccine 07/27/23 Recorded influenza virus vaccine, inactivated 07/13/23 Faraz rded influenza virus vaccine, inactivated 06/10/22 Faraz rded influenza virus vaccine, inactivated 06/07/21 Faraz rded influenza virus vaccine, inactivated 05/27/20 Faraz rded SARS-CoV-2(COVID-19)mRNA-LNP vac([id number]) 07/09/23 Recorded [id number] bivalent booster vax 04/22/23 Recorded [id number] bivalent booster vax 05/27/22 Recorded zoster vaccine, [...] 07/22/23 11:59:00 EST, Route to Pharmacy Electronically, [facility], Partial fill upon patient request [...] Replace Required Details, Route to Pharmacy Electronically, [facility], 188, cm, 07/22/23 11:30:00 EST, Heigh... Start Date: 07/22/23 Status: Ordered Jantoven 5 mg oral tablet 1-2 TABLETS, By Mouth, Daily, PER PROTOCOL., # 135 tablet, 3 Refills, Maintenance, 10/12/23 9:09:00EST, [facility], 187.96, cm, 09/25/23 8:15:00 EST, [...] 3 Refills, Maintenance, 09/11/23 12:06:00 EST, Capsule, [facility], Partial fill upon patient [...] Personnel Name: Erich RAHAT Chela Tracee Position: [facility] MA Member Role: Lifetime Consulting Physician Name: Aleks Rodriguez RN Position: [facility] Rad RN Member Role: Primary Care Nurse Name: Zuleyma Gonzales RN Position: [facility] RN Member Role: Primary Care Nurse Name: Osiris Croft PharmD Position: [facility] Associate Professional Member Role: Lifetime Consulting Provider Address: Address: [address] [place] [address] [place] [address]- Name: Lizabeth Montaño RN Position: [facility] RN Member Role: Primary Care Nurse Name: Osiris Portillo RN Position: [facility] RN Member Role: Primary Care Nurse Name: Mariana Ovalle RN Position: [facility] SN RN Member Role: Primary Care Nurse Name: Felix Randle MD Position: [facility] Physician - Primary Care Member Role: PCP Address: Address: [address] [place] [address]- Care Team Related Persons Name: LEONARD MCCOLLUM Address: home [address] [place] [address] Name: CLAUDIA LAI Address: home [place]KNOWN [phone] Name: HEBER DUKES
--- OUTSIDE RECORDS SUMMARY | 2024-05-12 23:10 | XMS_ITS | Continuity of Care Document ---
Author Organization [facility] Address [address] [place] [address]- Care Team Providers Care Master Printer Name Role Phone Razia WILSON, Felix Denis Primary Care Physician En[place] [facility] [place] Date(s): 02/26/23 - 03/28/23 [facility] [address] [place] [address]- [place] Allergies, Adverse Reactions, Alerts Substance Reaction Severity Status Venofer 1 bleeding hypotension Active 1hypotension Immunizations Given and Recorded Vaccine Date Status Refusal Reason zoster vaccine, inactivated 09/09/22 Recorded zoster vaccine, inactivated 06/25/22 Recorded influenza virus vaccine, inactivated 06/10/22 Faraz rded influenza virus vaccine, inactivated 06/07/21 Faraz rded influenza virus vaccine, inactivated 05/27/20 Faraz rded [id number] bivalent booster vax 05/27/22 Recorded SARS-CoV-2 (COVID-19) [...] 11/26/22 13:30:00 EDT, Route to Pharmacy Electronically, [facility], Partial fill upon patient request [...] more than 30 days ago entered on: 6/13/23 Sex Patient Care team information Care Team Personnel Name: Chela Jung MA Position: [facility] [place] MA Member Role: Lifetime Consulting Physician Name: Aleks Rodriguez RN Position: [facility] Ralph RN Member Role: Primary Care Nurse Name: Zuleyma Gonzales RN Position: [facility] RN Member Role: Primary Care Nurse Name: Osiris Croft PharmD Position: [facility] Associate Professional Member Role: Lifetime Consulting Provider Address: Address: [address] [place] [address]- Name: Lizabeth Montaño RN Position: [facility] RN Member Role: Primary Care Nurse Name: Osiris Portillo RN Position: [facility] RN Member Role: Primary Care Nurse Name: Mariana Ovalle RN Position: [facility] SN RN Member Role: Primary Care Nurse Name: Felix Randle MD Position: [facility] Physician - Primary Care Member Role: PCP Address: Address: [address] [place] [address]- Care Team Related Persons Name: LEONARD MCCOLLUM Address: [address] [place] [address] Name: CLAUDIA LAI Address: home UNKNOWN [id number] UM Name: HEBER DUKES
--- OUTSIDE RECORDS SUMMARY | 2024-05-12 23:10 | XMS_ITS | Continuity of Care Document ---
Author Organization [facility] Address Unknown Care Team Providers Care Medical Logistics Specialist Name Role Phone Razia WILSON, Felix Denis Primary Care Physician [facility]counter [facility] Date(s): 12/26/21 - 01/02/22 [facility] Attending Physician: Tasneem Siddiqui MD Referring Physician: Yusuf Yanez MD, I Allergies, Adverse Reactions, Alerts Substance Reaction Severity [...] Most recent to oldest [Reference Range]: 1 Height 188 cm (12/26/21 2:14 PM) Weight 89 kg (12/26/21 2:14 PM) Oxygen Saturation [94-100 %] 96 % (12/26/21 2:14 PM) Pulse Rate [55-90 bpm] 62 bpm (12/26/21 2:14 PM) Body Mass Index [18.5-24.99] 25.18 *H* (12/26/21 2:14 PM) Blood Pressure [90-138/55-84 mm Hg] 102/ 50mm Hg (12/26/21 2:14 PM) Respiratory Rate [16-30 br/min] 22 br/mi n (12/26/21 2:14 PM) Temperature [96.8-100.4 DegF] 97.6 DegF (12/26/21 2:14 PM) Mode of Delivery (Oxygen) Room air (12/26/21 2:14 PM) Blood pressure sites Arm, right (12/26/21 2:14 PM) Temperature Route Temporal (12/26/21 2:14 PM) Weight Obtained Via Standing scale (12/26/21 2:14 PM) Social History Social History Type Response Smoking Status Former smoker, quit more than 30 days ago; Tobacco user in household: Yes; Other: quit 09/2018; entered on: 01/04/19 Sex
--- OUTSIDE RECORDS SUMMARY | 2024-05-12 23:10 | XMS_ITS | Continuity of Care Document ---
Author Organization [facility] Address Unknown Care Team Providers Care Optical Glass Inspector Name Role Phone Razia WILSON, Felix Denis Primary Care Physician [facility]counter [facility] Date(s): 01/06/22 - 02/05/22 [facility] Allergies, Adverse Reactions, Alerts Substance Reaction Severity [...]
--- OUTSIDE RECORDS SUMMARY | 2024-05-12 23:11 | XMS_ITS | Continuity of Care Document ---
Author Organization [facility] ter Address [address] [place] [address]- Care Team Providers Care Material Handling Technician Name Role Phone Felix Randle MD Primary Care Physician En[place] [facility] [place] Date(s): 06/12/20 - 07/12/[address] [address] Attending Physician: Admtr, Ar8 Admitting Physician: Admtr, Ar8 Referring Physician: Admtr, Ar8 Allergies, Adverse Reactions, [...] 01/06/19 14:03:00 EDT, Route to Pharmacy Electronically, [id number], [facility] Start Date: 01/06/19 Stop Date: [...] 04/05/20 15:47:00 EDT, Route to Pharmacy Electronically, [facility], 187.96, cm, 07/11/19 13:54:00 EST, [...]
--- OUTSIDE RECORDS SUMMARY | 2024-05-12 23:11 | XMS_ITS | Continuity of Care Document ---
Author Organization [facility] ter Address [address] [place] [address]- Care Team Providers Care Fishing Tackle Repairer Name Role Phone Felix Randle MD Primary Care Physician [facility]counter [facility] Date(s): 07/09/22 - 07/09/[address] [address] Discharge Disposition: A-D/C Home [...] 07/01/22 10:41:00 EDT, Route to Pharmacy Electronically, [facility], Partial fill upon patient request if the prescription is for a schedul... Start Date: 07/01/22 Stop Date: 12/28/22 Status: Ordered lisinopril 2.5 mg oral tablet [...] Active 1Per chart review meeting GFR criteria Results Radiology Reports * Exam Date Time Procedure Performing Provider Status 07/09/22 5:59 PM Chest Portable Karoline Ramirez; Auth ( Verified) Notes: (Chest Portable) Reason For Exam: Postop RESULT: Chest Portable Chest Portable INDICATION: Reason: Postop; Clinical Question(s): Postop COMPARISON: 10/16/2018. FINDINGS: LINES AND TUBES: A right-sided artery pack is noted with 2 leads overlying the heart, stable. The previously seen tracheostomy tube is no longer seen. There is a lucency in the region of the previously seen tracheostomy tube which may be postsurgical in nature. LUNGS AND PLEURA: There is increased opacity in the left mid lower lung probably focal atelectasis. There is no vascular congestion. No effusion or pneumothorax. HEART, MEDIASTINUM AND ANGIE: The cardiac silhouette remains enlarged. The mediastinal contours are normal. BONES AND SOFT TISSUES: No acute abnormality. IMPRESSION: New airspace disease in the left mid lower lung probably atelectasis or parenchymal hemorrhage in the setting of recent procedure. Clinical correlation and follow-up to baseline is advised. Stable cardiomegaly. No pneumothorax. A critical result message ([place]) has been communicated via the [employer] system on 07/09/2022 6:12 PM, Message ID [id number]. WSN: [id number] Ordering Physician: Osiris León Dictated By: Nicole Sky MD Dictated Date/Time: 07/09/22 6:12 pm Reviewed By: Nicole Sky MD Signed By: Nicole Sky MD Signed Date/Time: 07/09/22 6:12 pm Transcribed By: SHIVANI Transcribed Date/Time: 07/09/22 6:08 pm Vital Signs Most recent to oldest [Reference Range]: 1 2 3 Weight 84.1 kg (07/09/22 2:31 PM) Oxygen Saturation [94-100 %] 96 % (07/09/22 7:15 PM) 97 % (07/09/22 7:00 PM) 100 % (07/09/22 6:45 PM) Pulse Rate [55-90 bpm] 58 bpm (07/09/22 2:31 PM) Blood Pressure [90-138/55-84 mm Hg] 105/56mm Hg (07/09/22 7:15 PM) 111/62mm Hg (07/09/22 7:00 PM) 103/54mm Hg (07/09/22 6:45 PM) Respiratory Rate [16-30 br/min] 17 br/min (07/09/22 7:15 PM) 18 br/min (07/09/22 7:00 PM) 19 br/min (07/09/22 6:45 PM) Temperature [96.8-100.4 DegF] 97.0 DegF (07/09/22 6:45 PM) 98.0 DegF (07/09/22 5:00 PM) 98.2 DegF (07/09/22 2:31 PM) Liters per Minute 5 L/min (07/09/22 5:15 PM) 5 L/min (07/09/22 5:00 PM) Mode of Delivery (Oxygen) Room air (07/09/22 7:15 PM) Room air (07/09/22 7:00 PM) Room air (07/09/22 6:45 PM) Blood pressure sites Arm, left (07/09/22 2:31 PM) Temperature Route Temporal (07/09/22 6:45 PM) Temporal (07/09/22 5:00 PM) Temporal (07/09/22 2:31 PM) Social History Social History Type Response Smoking Status Former smoker, quit more than 30 days ago; Tobacco user in household: Yes; Other: quit 09/2018; entered on: 01/04/19 Sex Portable XR Chest Views * [facility]owers[employer] , CIS S: TRANSCRIBE Nicole Sky MD: VERIFY Event Display: Result: Authored Date: Chest Portable INDICATION: Reason: Postop; Clinical Question(s): Postop COMPARISON: 10/16/2018. FINDINGS: LINES AND TUBES: A right-sided artery pack is noted with 2 leads overlying the heart, stable. The previously seen tracheostomy tube is no longer seen. There is a lucency in the region of the previously seen tracheostomy tube which may be postsurgical in nature. LUNGS AND PLEURA: There is increased opacity in the left mid lower lung probably focal atelectasis. There is no vascular congestion. No effusion or pneumothorax. HEART, MEDIASTINUM AND ANGIE: The cardiac silhouette remains enlarged. The mediastinal contours are normal. BONES AND SOFT TISSUES: No acute abnormality. IMPRESSION: New airspace disease in the left mid lower lung probably atelectasis or parenchymal hemorrhage in the setting of recent procedure. Clinical correlation and follow-up to baseline is advised. Stable cardiomegaly. No pneumothorax. A critical result message ([place]) has been communicated via the [employer] system on 07/09/2022 6:12 PM, Message ID [id number]. WSN: [id number] Ordering Physician: Osiris León Dictated By: Nicole Sky MD Dictated Date/Time: 07/09/22 6:12 pm Reviewed By: Nicole Sky MD Signed By: Nicole Sky MD Signed Date/Time: 07/09/22 6:12 pm Transcribed By: SHIVANI Transcribed Date/Time: 07/09/22 6:08 pm Patient Care team information Personnel Name: Felix Randle MD Address: Address: [address] [place] [address]
--- OUTSIDE RECORDS SUMMARY | 2024-05-12 23:11 | XMS_ITS | Continuity of Care Document ---
Author Organization [facility] Address [address] [address]- Care Team Providers Care Finished Stock Inspector Name Role Phone Felix Randle MD Primary Care Physician [phone] [place] [facility] [place] 11/19/21 [facility] [address] [address]- Attending Physician: Lory Leonard MD Admitting Physician: [...]
--- OUTSIDE RECORDS SUMMARY | 2024-05-12 23:11 | XMS_ITS | Continuity of Care Document ---
Author Organization [facility] ter Address [address] [place] [address]- Care Team Providers Care Guide Name Role Phone Razia WILSON, Felix Denis Primary Care Physician [phone] [place] [facility] [place] Date(s): 08/23/19 - 08/23/[address] [address]- [facility] Attending Physician: Lory Leonard MD [...] 01/06/19 14:03:00 EDT, Route to Pharmacy Electronically, [id number], [facility] Start Date: [...] 12/16/18 17:08:59 EDT, Route to Pharmacy Electronically, [id number], [facility]... Start Date: 12/16/18 Stop Date: 01/15/19 Status: Ordered lisinopril 2.5 mg oral tablet 2.5 mg, 1, tablet, By Mouth, Daily, # 30 tablet, Refills 5, Tot. Refills 5, Maintenance, 07/04/19 15:04:15 EDT, Route to Pharmacy Electronically, [id number], [facility] Start Date: 07/04/19 [...] 05/03/19 13:54:44 EDT, Route to Pharmacy Electronically, [id number], [facility] Start Date: 05/03/19 Stop Date: [...] 09/19/19 14:07:17 EST, Route to Pharmacy Electronically, [id number], [facility] Start Date: 09/19/19 Status: Ordered spironolactone 25 mg oral tablet 25 mg, 1, tablet, By Mouth, Daily, for 90 days, # 90 tablet, Refills 1, Tot. Refills 1, Hard Stop 09/19/19 14:07:17 EST, 03/23/19 14:07:17 EDT, Route to Pharmacy Electronically, [id number], [facility] Start Date: [...]
--- OUTSIDE RECORDS SUMMARY | 2024-05-12 23:11 | XMS_ITS | Continuity of Care Document ---
Author Organization [facility] ter Address [address] [place] [address]- Care Team Providers Care Bowling Ball Molder Name Role Phone Razia WILSON, Felix Denis Primary Care Physician Encounter [facility] Date(s): 09/20/19 - 09/27/[address] [address]- [facility] Attending Physician: Dana Godoy MD Allergies, Adverse [...] 01/06/19 14:03:00 EDT, Route to Pharmacy Electronically, [id number], [facility] Start Date: [...] 12/16/18 17:08:59 EDT, Route to Pharmacy Electronically, [id number], [facility]... Start Date: 12/16/18 Stop Date: 01/15/19 Status: Ordered lisinopril 2.5 mg oral tablet 2.5 mg, 1, tablet, By Mouth, Daily, # 30 tablet, Refills 5, Tot. Refills 5, Maintenance, 07/04/19 15:04:15 EDT, Route to Pharmacy Electronically, [id number], [facility] Start Date: 07/04/19 [...] 05/03/19 13:54:44 EDT, Route to Pharmacy Electronically, [id number], [facility] Start Date: 05/03/19 Stop Date: [...] 09/20/19 10:26:00 EST, Route to Pharmacy Electronically, [facility], 187.96, cm, 07/11/19 13:54:00 EST, [...]
--- OUTSIDE RECORDS SUMMARY | 2024-05-12 23:11 | XMS_ITS | Continuity of Care Document ---
Author Organization [facility] Address [address] [place] [address]- Care Team Providers Care Director Data Management Name Role Phone Razia WILSON, Felix Denis Primary Care Physician [place] [facility] [place] 07[place]13[place]20 [facility] [address] [place] [address]- Attending Physician: Silvestre RODRIGUEZ, Jenny Wiley Admitting Physician: Silvestre RODRIGUEZ, Jenny Wiley Referring Physician: Adelso Garay MD Allergies, Adverse Reactions, Alerts Substance Reaction [...] 01/06/19 14:03:00 EDT, Route to Pharmacy Electronically, [id number], [facility] Start Date: 01/06/19 Stop Date: [...] 04/05/20 15:47:00 EDT, Route to Pharmacy Electronically, [facility], 187.96, cm, 07/11/19 13:54:00 EST, [...]
--- OUTSIDE RECORDS SUMMARY | 2024-05-12 23:11 | XMS_ITS | Continuity of Care Document ---
Author Organization [facility] ter Address [address] [place] [address]- Care Team Providers Care Dry Box Operator Name Role Phone Felix Randle MD Primary Care Physician Encounter [facility] [place] Date(s): 09/13/19 - 09/13/[address] [address]- [facility] Attending Physician: Felix Randle MD Allergies, [...] 01/06/19 14:03:00 EDT, Route to Pharmacy Electronically, [id number], [facility] Start Date: [...] 12/16/18 17:08:59 EDT, Route to Pharmacy Electronically, [id number], [facility]... Start Date: 12/16/18 Stop Date: 01/15/19 Status: Ordered lisinopril 2.5 mg oral tablet 2.5 mg, 1, tablet, By Mouth, Daily, # 30 tablet, Refills 5, Tot. Refills 5, Maintenance, 07/04/19 15:04:15 EDT, Route to Pharmacy Electronically, [id number], [facility] Start Date: 07/04/19 [...] 05/03/19 13:54:44 EDT, Route to Pharmacy Electronically, [id number], [facility] Start Date: 05/03/19 Stop Date: [...] 09/19/19 14:07:17 EST, Route to Pharmacy Electronically, [id number], [facility] Start Date: 09/19/19 Status: Ordered spironolactone 25 mg oral tablet 25 mg, 1, tablet, By Mouth, Daily, for 90 days, # 90 tablet, Refills 1, Tot. Refills 1, Hard Stop 09/19/19 14:07:17 EST, 03/23/19 14:07:17 EDT, Route to Pharmacy Electronically, [id number], [facility] Start Date: [...]
--- OUTSIDE RECORDS SUMMARY | 2024-05-12 23:11 | XMS_ITS | Continuity of Care Document ---
Author Organization [facility] ter Address [address] [place] [address]- Care Team Providers Care Nut Packer Name Role Phone Razia WILSON, Felix Denis Primary Care Physician [phone] [place] [facility] [place] Date(s): 06/25/20 - 06/29/[address] [address]- [facility] Discharge Disposition: A-Transfer VNA/Home Health Attending Physician: Adelso Garay MD Admitting Physician: Adelso Garay MD Referring Physician: Adelso Garay MD Allergies, Adverse [...] 01/06/19 14:03:00 EDT, Route to Pharmacy Electronically, [id number], [facility] Start Date: 01/06/19 Stop Date: 05/06/19 Status: Ordered Docusate = 100 mg, By Mouth, Daily, 0 Refills, Maintenance, 06/12/20 9:02:00 EDT Start Date: 06/12/20 Status: Ordered ferrous sulfate 325 mg oral enteric coated tablet 325 mg, 1, tablet, By Mouth, 2 times a day, # 30 tablet, Refills 0, Maintenance, 06/12/20 8:58:00 EDT Start Date: 06/12/20 Status: Ordered HYDROmorphone 2 mg oral tablet See Instructions, PRN Pain , Mild, Take 1-2 tablets every 4 hours as needed, # 84 tablet, 0 Refills, Acute 07/06/20 9:53:00 EDT, 06/29/20 9:52:00 EDT, Tablet, Partial fill upon patient request Start Date: 06/29/20 Stop Date: 07/06/20 Status: Ordered HYDROmorphone 2 mg oral tablet See Instructions, PRN Pain , Mild, Take 1-2 tablets By Mouth Every 4 hours as needed, # 84 tablet, 0 Refills, Acute 07/04/20 8:31:00 EDT, 06/27/20 8:30:00 EDT, Tablet, Partial fill upon patient request, 185, cm, 06/27/20 6:30:00 EDT, Height, 83.3, kg,... Start Date: 06/27/20 Stop Date: 07/04/20 Status: Ordered Maalox Plus Liquid 30 mL, [...] 04/05/20 15:47:00 EDT, Route to Pharmacy Electronically, [facility] failure)(Confirmed) Active Primary cancer of larynx(Confirmed) Active Results Radiology Reports * Exam Date Time Procedure Performing Provider Status 06/25/20 10:29 PM Knee 1 or 2 Views Left Rene Araya ; Yoselyn (Verified) Notes: (Knee 1 or 2 Views Left) Reason For Exam: Postop RESULT: Knee 1 or 2 Views Left Knee 1 or 2 Views Left INDICATION: Postop knee replacement COMPARISON: None. FINDINGS: Distal femoral and proximal tibial metallic components are in typical position. No periprosthetic fracture. Small radiopaque density noted in the lateral compartment could represent an intra-articular fragment. Soft tissue emphysema, but no unexpected soft tissue findings. IMPRESSION: Typical postoperative appearance. WSN: [id number] Ordering Physician: Alisha Soliman Dictated By: Ki Ivey MD Dictated Date/Time: 06/25/20 10:35 p Reviewed By: Ki Ivey MD Signed By: Ki Ivey MD Signed Date/Time: 06/25/20 10:35 pm Transcribed By: SHIVANI Transcribed Date/Time: 06/25/20 10:34 pm Vital Signs Most recent to oldest [Reference Range]: 1 2 3 Height 185 cm (06/29/20 6:28 AM) 185 cm (06/29/20 4:53 AM) 185 cm (06/28/20 11:29 PM) Weight 83.3 kg (06/25/20 7:54 AM) 83.3 kg (06/25/20 5:50 AM) Oxygen Saturation [94-100 %] 96 % (06/29/20 6:28 AM) 97 % (06/29/20 4:53 AM) 97 % (06/28/20 11:29 PM) Pulse Rate [55-90 bpm] 69 bpm (06/29/20 8:14 AM) 69 bpm (06/29/20 6:28 AM) 66 bpm (06/29/20 4:53 AM) Body Mass Index [18.5-24.99] 24.34 (06/25/20 7:54 AM) 24.34 (06/25/20 5:50 AM) Blood Pressure [90-138/55-84 mm Hg] 135/62mm Hg (06/29/20 8:14 AM) 135/62mm Hg (06/29/20 6:28 AM) 137/73mm Hg (06/29/20 4:53 AM) Respiratory Rate [16-30 br/min] 18 br/min (06/29/20 1:54 PM) 18 br/min (06/29/20 12:54 PM) 18 br/min (06/29/20 9:18 AM) Temperature [96.8-100.4 DegF] 98.7 DegF (06/29/20 6:28 AM) 97.9 DegF (06/29/20 4:53 AM) 97.6 DegF (06/28/20 11:29 PM) Mode of Delivery (Oxygen) Room air (06/29/20 6:28 AM) Room air (06/29/20 4:53 AM) Room air (06/28/20 11:29 PM) Blood pressure sites Arm, left (06/29/20 6:28 AM) Arm, right (06/29/20 4:53 AM) Arm, right (06/28/20 11:29 PM) Temperature Route Oral (06/29/20 6:28 AM) Oral (06/29/20 4:53 AM) Oral (06/28/20 11:29 PM) Dry Weight 83.3 kg (06/25/20 5:50 AM) Weight Obtained Via Standing scale (06/25/20 5:50 AM) Social History Social History Type Response Smoking Status Former smoker, quit more than 30 days ago; Tobacco user in household: Yes; Other: quit 09/2018; entered on: 01/04/19 Sex Male
--- OUTSIDE RECORDS SUMMARY | 2024-05-12 23:11 | XMS_ITS | Continuity of Care Document ---
Author Organization [facility] Address [address] [place] [address] [address], [address] [place] [address]- Care Team Providers Care Oil Field Equipment Mechanic Supervisor Name Role Phone Razia WILSON, Felix Denis Primary Care Physician [facility] Date[facility]s): 06/26/22 - 07/26/22 [facility] [address] [place] [address], [address] [place], [place] [address] Attending Physician: Admtr, Azra Admitting Physician: Admtr, Ar8 Referring Physician: Admtr, [...] information Care Team Personnel Name: Chela Jung Tracee Position: [facility] Member Role: Lifetime Consulting Physician Name: Aleks Rodriguez RN Position: [facility] Ralph RN Member Role: Primary Care Nurse Name: Zuleyma Gonzales RN Position: [facility] RN Member Role: Primary Care Nurse Name: Osiris Croft PharmD Position: [facility] Associate Professional Member Role: Lifetime Consulting Provider Address: Address: [address] [place] [address]- Name: Lizabeth Montaño RN Position: [facility] RN Member Role: Primary Care Nurse Name: Osiris Portillo RN Position: [facility] RN Member Role: Primary Care Nurse Name: Mariana Ovalle RN Position: [facility] RN Member Role: Primary Care Nurse Name: Felix Randle MD Position: [facility] Primary Care Physician Member Role: PCP Address: Address: [place] [address]- Care Team Related Persons Name: LEONARD MCCOLLUM Address: home [address] [place] [address] Name: CLAUDIA LAI Address: home [place] [phone] Name: HEBER DUKES
--- OUTSIDE RECORDS SUMMARY | 2024-05-12 23:11 | XMS_ITS | Continuity of Care Document ---
Author Organization [facility] Address [address] [place] [address]- Care Team Providers Care Pot Washer Name Role Phone Felix Randle MD Primary Care Physician [place] [facility] [place] Date(s): 08/28/21 - 09/27/21 [facility] [address] [place] [address] Allergies, Adverse Reactions, Alerts Substance Reaction Severity [...]
--- OUTSIDE RECORDS SUMMARY | 2024-05-12 23:11 | XMS_ITS | Continuity of Care Document ---
Author Organization [facility] Address [address] [place] [address]- Care Team Providers Care Sample Sewer Name Role Phone Razia WILSON, Felix Denis Primary Care Physician [facility] Date(s): 09/02/23 - 12/31/23 [facility] [address] [place] [address]- Attending Physician: Bar Thomas MD Admitting Physician: [...] virus vaccine, inactivated 05/27/20 Faraz rded SARS-CoV-2(COVID-19)mRNA-LNP vac([id number]) 07/09/23 Recorded [id number] bivalent booster vax 04/22/23 Recorded [id number] bivalent booster vax 05/27/22 Recorded zoster vaccine, [...] Replace Required Details, Route to Pharmacy Electronically, [facility], 188, cm, 07/22/23 11:30:00 EST, Kary... Start Date: 07/22/23 Status: Ordered humidifier humidifier, See Instructions, # 1 each, Refills 0, Tot. Refills 0, Maintenance, humidified air mistsystem to be used at night, 11/18/23 15:15:00 EDT, Supply Start Date: 11/18/23 Status: Ordered Jantoven 5 mg oral tablet 1-2 TABLETS, By Mouth, Daily, PER PROTOCOL., # 135 tablet, 3 Refills, Maintenance, 10/12/23 9:09:00EST, [facility], 187.96, cm, 09/25/23 8:15:00 EST, [...] 1 Refills, Maintenance, 09/06/23 13:58:00 EST, [facility], 187.96, cm, 09/03/23 10:59:00 EST, [...] Refills, Maintenance, 08/25/23 13:12:00 EST, [facility], Partial fill upon patient request [...] 3 Refills, Maintenance, 09/11/23 12:06:00 EST, Capsule, [facility], Partial fill upon patient [...] Personnel Name: Erich RAHAT Chela Tracee Position: [facility] MA Member Role: Lifetime Consulting Physician Name: Aleks Rodriguez RN Position: [facility] Ralph RN Member Role: Primary Care Nurse Name: Zuleyma Gonzales RN Position: [facility] RN Member Role: Primary Care Nurse Name: Osiris Croft PharmD Position: [facility] Associate Professional Member Role: Lifetime Consulting Provider Address: Address: [address] [place] [address]- Name: Lizabeth Montaño RN Position: [facility] RN Member Role: Primary Care Nurse Name: Osiris Portillo RN Position: [facility] RN Member Role: Primary Care Nurse Name: Mariana Ovalle RN Position: [facility] SN RN Member Role: Primary Care Nurse Name: Felix Randle MD Position: [facility] Physician - Primary Care Member Role: PCP Address: Address: [address] [place] [address]- Care Team Related Persons Name: LEONARD MCCOLLUM Address: home [address] [place] [address] Name: CLAUDIA LAI Address: home [place] [phone] UM Name: HEBER DUKES
--- OUTSIDE RECORDS SUMMARY | 2024-05-12 23:11 | XMS_ITS | Continuity of Care Document ---
Author Organization [facility] ter Address [address] [place] [address]- Care Team Providers Care Fire Services Plumber Name Role Phone Felix Randle MD Primary Care Physician [phone] [facility] Date[facility]23 - 06/22/[address] [address] Discharge Disposition: A-D/C Home Attending Physician: Tasneem Siddiqui MD Admitting Physician: Tasneem Siddiqui MD Referring Physician: Tasneem Siddiqui MD Allergies, Adverse Reactions, Alerts Substance Reaction Severity Status Venofer 1 bleeding hypotension Active 1hypotension Immunizations Given and Recorded Vaccine Date Status Refusal Reason [id number] bivalent booster vax 04/22/23 Recorded [id number] bivalent booster vax 05/27/22 Recorded zoster vaccine, [...] 11/26/22 13:30:00 EDT, Route to Pharmacy Electronically, [facility], Partial fill upon patient request [...] 04/05/23 8:01:00 EDT, Route to Pharmacy Electronically, [facility], 187.96, cm, 03/24/23 13:14:00 EDT, Height, 86.4, kg, 01/08/22 14:42:00 EDT, Dry Weight Start Date: 04/05/23 Status: Ordered Jantoven 5 mg oral tablet 1-2 TABLETS, By Mouth, Daily, PER PROTOCOL., # 135 tablet, 3 Refills, Maintenance, 08/25/22 9:47:00EST, [facility], 187.96, cm, 07/03/22 16:11:00 EDT, [...] Active 1Per chart review meeting GFR criteria Vital Signs Most recent to oldest [Reference Range]: 1 2 3 Height 188 cm (06/22/23 5:59 AM) Weight 82.7 kg (06/22/23 5:59 AM) Oxygen Saturation [94-100 %] 97 % (06/22/23 10:30 AM) 94 % (06/22/23 9:30 AM) 96 % (06/22/23 9:15 AM) Pulse Rate [55-90 bpm] 55 bpm (06/22/23 5:59 AM) Body Mass Index [18.5-24.99 kg/m2] 23.4 kg/m2 (06/22/23 5:59 AM) Blood Pressure [90-138/55-84 mm Hg] 110/68mm Hg (06/22/23 9:30 AM) 103/63mm Hg (06/22/23 9:15 AM) 102/58mm Hg (06/22/23 9:00 AM) Respiratory Rate [16-30 br/min] 18 br/min (06/22/23 9:30 AM) 17 br/min (06/22/23 9:15 AM) 24 br/min (06/22/23 9:00 AM) Temperature [96.8-100.4 DegF] 97.6 DegF (06/22/23 9:30 AM) 97.9 DegF (06/22/23 8:45 AM) 97.2 DegF (06/22/23 5:59 AM) Mode of Delivery (Oxygen) Room air (06/22/23 10:30 AM) Room air (06/22/23 9:15 AM) Room air (06/22/23 9:00 AM) Blood pressure sites Arm, left (06/22/23 8:45 AM) Arm, left (06/22/23 5:59 AM) Temperature Route Temporal (06/22/23 9:30 AM) Temporal (06/22/23 8:45 AM) Temporal (06/22/23 5:59 AM) Dry Weight 82.7 kg (06/22/23 5:59 AM) Weight Obtained Via Standing scale (06/22/23 5:59 AM) Dry Weight Obtained Via Standing scale (06/22/23 5:59 AM) Social History Social History Type Response Smoking Status Former smoker, quit more than 30 days ago entered on: 02/17/23 Sex Note * Weeks Jenny MERCADO: PERFORM Event Display: Discharge/Transfer Note Hospital Authored Date: [id number] Nursing Discharge Note Entered On: 06/22/2023 10:37 EDT Performed On: 06/22/2023 10:36 EDT by Jenny Combs RN Nursing Discharge Note 2 Discharge Time : 06/22/2023 10:20 EDT Discharge Level of Care at Discharge : Home/Half-Way/Foster Care Patient Left Unit Via : Wheelchair Patient Accompanied Off Unit with : Other: Friend DC Instructions Provided & Signed by Pt : Yes Patient Understands D/C Instructions : Yes Verbalized Understanding of D/C Plan By : Patient Patient Instructions Discharge Signed : Yes Did Pt have Specialty Bed or Wound Vac : Yes Jenny Combs RN - 06/22/2023 10:36 EDT * Jenny Combs RN: PERFORM Event Display: Patient Education/Instruction Authored Date: [id number] Inpatient Adult Discharge Instructions [address] [address] Name: REGAN DUKES : 1950 Visit: 06/22/2023 05:11:00 Current Date: 06/22/2023 09:44 Account: [id number] Inpatient Adult Discharge Instructions We would like to thank [...] and their families. Surveys are administered by [employer] ?? If further treatment with your primary care physician or another doctor is recommended, it is important for you to keep the appointment. Call your primary care physician or return to the Emergency Department immediately if your condition worsens, fails to improve, or new symptoms develop. If you need to find a doctor, you can call [facility] for a referral at [phone] or toll free at [phone] ([phone]) or log in to [email or web address].. ?? [facility], in keeping with [facility] guidance, no longer requires face [...] a health care mike of your choosing. [employer] is a website that allows you to securely view your medical information including your hospital discharge summary, office visit summaries, medications and follow-up visits. You can also request appointments, renew medications, and request access to your medical information using a health care mike of your choosing, or just ask a question. You can enroll at [email or web address] or register during your next office visit. You have been discharged from [facility], Patient Care Unit: PANU. If you have any questions regarding these instructions after you leave, please call us and we will be happy to assist you. [facility] Your Care Team Attending Physician Artur WILSON, Tasneem Howard Discharging Providers Tesha Jasmine MD Reason for Admission HEMOPTYSIS BRONCHOSCOPY W YAG LASER DS Tests Performed Below is a partial list of the tests performed during your hospitalization. You may have had other tests and procedures not included in this list. Please discuss all test results with your provider. INR Primary Care Provider Razia WILSON, Felix Denis Advance Directive Health Care Proxy on File Yes - Health Care Proxy Yes - MOLST Discharge Vitals Temperature: 97.6 DegF Height: 188 cm Pulse Rate: 55 bpm Weight: 82.7 kg Respiratory Rate: 18 br/min Body Mass Index: 23.4 kg/m2 Systolic Blood Pressure: 110 mm Hg Body surface area: 2.08 Diastolic Blood Pressure: 68 mm Hg ?? Oxygen Saturation: 94 % ?? Studies Pending All tests and labs ordered during this hospital stay have been completed unless listed below. Please discuss all pending results with your provider listed above in these instructions. ?? No incomplete studies found What to do next Instructions From Your Doctor Discharge Orders Scheduled Follow-Up Appointments Thursday 8:00 AM EDT ?? Where: [facility] Status: Pending Thursday 2:00 PM EST ?? Where: [facility] [address] [place] [address]- Status: Pending Discharge Medications REGAN DUKES :1950 Visit Date:06/22/2023 Medications: Please continue your medications until treatment is completed or stopped by your provider. Medications not listed below should be discontinued. Discuss any questions related to medications with [...] 1-2 TABLETS Oral Daily PER PROTOCOL. ?? Test Results Below is a partial list of the most recent Laboratory test results done prior to this discharge. You may have had other tests and procedures not included in this list. Please discuss all test resultswith your provider. INR (06/22/2023) ???INR - 2.8???Protime (PT) - 27.6 seconds Allergies (NKA means No Known Allergies) Venofer??(bleeding, hypotension) Problems Active Problems??(20) Afib?? Anemia?? CAD (coronary artery disease)?? Cardiomyopathy?? Cervicalgia?? CHF (congestive heart failure)?? Chronic kidney disease, stage 3a?? Cirrhosis of liver?? Contact dermatitis?? H/O primary malignant neoplasm of larynx?? Health care maintenance?? Heart failure with preserved ejection fraction?? Hemoptysis?? HTN (hypertension)?? Hyperlipidemia?? Medication induced coagulopathy?? Muscle cramps?? Rhinitis?? Right inguinal hernia?? S/P laryngectomy?? Education Materials Below is the list of Educational Leaflet Providered with your Discharge Instructions. Surgery Medical Daystay Surgical Overnight Discharge Instructions?? Valuables and Belongings I fully understand and agree that [facility] accepts no responsibility for all my personal [...] Belonging List: With patient Possessions released to: PACU Date for Pt to Sign Valuables/Belongings: 06/22/23 05:59:00 ?? Valuables & Belongings ?? Clothes Electronic devices Jewelry Monetary Items Personal devices Miscellaneous Medications (Valuables) Valuables at Bedside Pants, Shirt, Shoes, Undergarments ? Valuables Sent Home ? Valuables Sent to Security ? Other Discharge Information ? Pulmonary Rehab Status?? Pulmonary Rehab Discharge Status?? Respiratory Rate: 18 br/min ? Common Emergency Awareness Tips IS [...] are strongly encouraged to quit. Please call [facility] at [phone] or [phone] ([phone]) or log in to [email or web address] for referrals to smoking cessation programs. ?? 468 Suicide & Crisis Lifeline is available 30/03 if you or someone you know needs to find a reason to keep living. By calling 539 you'll be connected to a skilled, trained counselor at a crisis center in your area. INPATIENT DISCHARGE INSTRUCTIONS SIGNATURE PAGE ALEXANDREREGAN MEEHAN Location:[facility] Registration Date and Time:06/22/2023 05:11 EDT Primary Care Physician: Razia WILSON, Felix Denis, Attending Physician: Artur WILSON, Tasneem Howard, I REGAN DUKES, have received the above patient education materials/instructions and have verbalized understanding. If ambulance or transport services are being used I further acknowledge being given a choice of service. ?? If you need to contact me, please call me at this number: . Patient/Heel Top Lift Splitter Name: Patient/Heel Top Lift Splitter Signature: Relationship to Patient: Witness Name/Signature: Date: * Weeks Jenny MERCADO: PERFORM Event Display: Patient Education Leaflets Authored Date: [id number] Surgery Medical Daystay Surgical Overnight Discharge Instructions [...] Team Personnel Name: Chela Jung MA Position: [facility] KENYETTA GIANG Member Role: Lifetime Consulting Physician Name: Aleks Rodriguez RN Position: [facility] Ralph RN Member Role: Primary Care Nurse Name: Zuleyma Gonzales RN Position: [facility] RN Member Role: Primary Care Nurse Name: Osiris Croft PharmD Position: [facility] Associate Professional Member Role: Lifetime Consulting Provider Address: Address: [address] [place] [address] [place] [address]- Name: Danyel MERCADO, Lizabeth Position: S RN Member Role: Primary Care Nurse Name: Osiris Portillo RN Position: S RN Member Role: Primary Care Nurse Name: Mariana Ovalle RN Position: [facility] SN RN Member Role: Primary Care Nurse Name: Razia WILSON, Felix Denis Position: [facility] Physician - Primary Care Member Role: PCP Address: Address: [address] [place] [address]- Care Team Related Persons Name: LEONARD MCCOLLUM Address: home [address] [place] [address] Name: CLAUDIA LAI Address: home [place]KNOWN [address] Name: HEBER DUKES
--- OUTSIDE RECORDS SUMMARY | 2024-05-12 23:11 | XMS_ITS | Continuity of Care Document ---
Author Organization [facility] Address [address] [place] [address]- Care Team Providers Care Subacute Nurse Name Role Phone Felix Randle MD Primary Care Physician [facility]s): 12/22/23 - 01/21/24 [facility] [address] [place] [address] Allergies, Adverse Reactions, Alerts Substance Reaction Severity Status Venofer 1 bleeding hypotension Active 1hypotension Immunizations Given and Recorded Vaccine Date Status Refusal Reason pneumococcal 20-valent conjugate vaccine 07/27/23 Recorded influenza virus vaccine, inactivated 07/13/23 Faraz rded influenza virus vaccine, inactivated 06/10/22 Faraz rded influenza virus vaccine, inactivated 06/07/21 Faraz rded influenza virus vaccine, inactivated 05/27/20 Faraz rded SARS-CoV-2(COVID-19)mRNA-LNP vac([id number]) 07/09/23 Recorded [id number] bivalent booster vax 04/22/23 Recorded [id number] bivalent booster vax 05/27/22 Recorded zoster vaccine, [...] Replace Required Details, Route to Pharmacy Electronically, [facility], 188, cm, 07/22/23 11:30:00 EST, Kary... Start Date: 07/22/23 Status: Ordered humidifier humidifier, See Instructions, # 1 each, Refills 0, Tot. Refills 0, Maintenance, humidified air mistsystem to be used at night, 11/18/23 15:15:00 EDT, Supply Start Date: 11/18/23 Status: Ordered Jantoven 5 mg oral tablet 1-2 TABLETS, By Mouth, Daily, PER PROTOCOL., # 135 tablet, 3 Refills, Maintenance, 10/12/23 9:09:00EST, [facility], 187.96, cm, 09/25/23 8:15:00 EST, [...] 1 Refills, Maintenance, 09/06/23 13:58:00 EST, [facility], 187.96, cm, 09/03/23 10:59:00 EST, [...] Refills, Maintenance, 08/25/23 13:12:00 EST, [facility], Partial fill upon patient request [...] 3 Refills, Maintenance, 09/11/23 12:06:00 EST, Capsule, [facility], Partial fill upon patient request if the prescription is for a schedule II opioid drug., 187.96... Start Date: 09/11/23 Stop Date: 09/05/24 Status: Ordered Problem List Condition Confirmation Course Effective Dates Status H ealt Status Informant Medication induced coagulopathy Confirmed Active [...] Team Personnel Name: Chela Jung MA Position: [facility] MA Member Role: Lifetime Consulting Physician Name: Aleks Rodriguez RN Position: [facility] Rad RN Member Role: Primary Care Nurse Name: Zuleyma Gonzales RN Position: [facility] RN Member Role: Primary Care Nurse Name: Osiris Croft PharmD Position: [facility] Associate Professional Member Role: Lifetime Consulting Provider Address: Address: [address] [place] [address]- Name: Lizabeth Montaño RN Position: [facility] RN Member Role: Primary Care Nurse Name: Osiris Portillo RN Position: S RN Member Role: Primary Care Nurse Name: Mariana Ovalle RN Position: [facility] SN RN Member Role: Primary Care Nurse Name: Felix Randle MD Position: [facility] Physician - Primary Care Member Role: PCP Address: Address: [address] [place] [address]- [place] Care Team Related Persons Name: LEONARD MCCOLLUM Address: home [address] [place] [address] Name: CLAUDIA LAI Address: home [place]KNOWN [address] UM Name: HEBER DUKES
--- OUTSIDE RECORDS SUMMARY | 2024-05-12 23:11 | XMS_ITS | Continuity of Care Document ---
Author Organization [facility] ter Address [address] [place] [address]- Care Team Providers Care Transaction Manager Name Role Phone Felix Randle MD Primary Care Physician Encounter [facility] Date(s): 10/11/19 - 10/11/[address] [address]- [facility] Attending Physician: Felix Randle MD Allergies, [...] 01/06/19 14:03:00 EDT, Route to Pharmacy Electronically, [id number], [facility] Start Date: [...] 12/16/18 17:08:59 EDT, Route to Pharmacy Electronically, [id number], [facility]... Start Date: 12/16/18 Stop Date: 01/15/19 Status: Ordered lisinopril 2.5 mg oral tablet 2.5 mg, 1, tablet, By Mouth, Daily, # 30 tablet, Refills 5, Tot. Refills 5, Maintenance, 07/04/19 15:04:15 EDT, Route to Pharmacy Electronically, [id number], [facility] Start Date: 07/04/19 [...] 05/03/19 13:54:44 EDT, Route to Pharmacy Electronically, [id number], [facility] Start Date: 05/03/19 Stop Date: [...] 09/20/19 10:26:00 EST, Route to Pharmacy Electronically, [facility], 187.96, cm, 07/11/19 13:54:00 EST, [...]
--- OUTSIDE RECORDS SUMMARY | 2024-05-12 23:11 | XMS_ITS | Continuity of Care Document ---
Author Organization [facility] Address [address] [place] [address]- Care Team Providers Care Convenience Recycle Center Tech Name Role Phone Felix Randle MD Primary Care Physician Encounter [facility] Date(s): 03/02/23 - 04/01/23 [facility] [address] [place] [address] Attending Physician: AdmAzra bateman Admitting Physician: AdmtrAzra Referring Physician: Admtr, Ar8 Allergies, Adverse Reactions, Alerts Substance Reaction Severity Status Venofer 1 bleeding hypotension Active 1hypotension Immunizations Given and Recorded Vaccine Date Status Refusal Reason zoster vaccine, inactivated 09/09/22 Recorded zoster vaccine, inactivated 06/25/22 Recorded influenza virus vaccine, inactivated 06/10/22 Faraz rded influenza virus vaccine, inactivated 06/07/21 Faraz rded influenza virus vaccine, inactivated 05/27/20 Faraz rded [id number] bivalent booster vax 05/27/22 Recorded SARS-CoV-2 (COVID-19) [...] capsule, 6 Refills, Maintenance, 09/10/22 13:44:00 EST, [facility], Partial fill upon patient [...] Care Team Personnel Name: Chela Jung MA Tracee Position: [facility] MA Member Role: Lifetime Consulting Physician Name: Aleks Rodriguez RN Position: [facility] Rad RN Member Role: Primary Care Nurse Name: Zuleyma Gonzales RN Position: [facility] RN Member Role: Primary Care Nurse Name: Osiris Croft PharmD Position: [facility] Associate Professional Member Role: Lifetime Consulting Provider Address: Address: [address] [place] [address]- Name: Lizabeth Montaño RN Position: [facility] RN Member Role: Primary Care Nurse Name: Osiris Portillo RN Position: [facility] RN Member Role: Primary Care Nurse Name: Mariana Ovalle RN Position: [facility] SN RN Member Role: Primary Care Nurse Name: Felix Randle MD Position: [facility] Physician - Primary Care Member Role: PCP Address: Address: [address] [place] [address]- Care Team Related Persons Name: LEONARD MCCOLLUM Address: home [address] [place] [address] Name: CLAUDIA LAI Address: home [place]KNOWN [phone] Name: HEBER DUKES
--- OUTSIDE RECORDS SUMMARY | 2024-05-12 23:11 | XMS_ITS | Continuity of Care Document ---
Author Organization [facility] Address [address] [place] [address], [address] [place] [address]- Care Team Providers Care Manager Rfid Name Role Phone Felix Randle MD Primary Care Physician [phone] [facility] Date[facility]s): 08/17/23 - 09/16/23 [facility] [address] [place] [address], [address] [place], [place] [address] Allergies, Adverse Reactions, Alerts Substance Reaction Severity Status Venofer 1 bleeding hypotension Active 1hypotension Immunizations Given and Recorded Vaccine Date Status Refusal Reason pneumococcal 20-valent conjugate vaccine 07/27/23 Recorded influenza virus vaccine, inactivated 07/13/23 Faraz rded influenza virus vaccine, inactivated 06/10/22 Faraz rded influenza virus vaccine, inactivated 06/07/21 Faraz rded influenza virus vaccine, inactivated 05/27/20 Faraz rded SARS-CoV-2(COVID-19)mRNA-LNP vac([id number]) 07/09/23 Recorded [id number] bivalent booster vax 04/22/23 Recorded [id number] bivalent booster vax 05/27/22 Recorded zoster vaccine, [...] 07/22/23 11:59:00 EST, Route to Pharmacy Electronically, [facility], Partial fill upon patient request [...] Replace Required Details, Route to Pharmacy Electronically, [facility], 188, cm, 07/22/23 11:30:00 [...] 1 Refills, Maintenance, 09/06/23 13:58:00 EST, [facility], 187.96, cm, 09/03/23 10:59:00 EST, [...] 3 Refills, Maintenance, 09/11/23 12:06:00 EST, Capsule, [facility], Partial fill upon patient [...] Team Personnel Name: Chela Jung MA Position: [facility] MA Member Role: Lifetime Consulting Physician Name: Aleks Rodriguez RN Position: [facility] Rad RN Member Role: Primary Care Nurse Name: Zuleyma Gonzales RN Position: [facility] RN Member Role: Primary Care Nurse Name: Osiris Croft PharmD Position: [facility] Associate Professional Member Role: Lifetime Consulting Provider Address: Address: [address] [place] [address]- Name: Lizabeth Montaño RN Position: [facility] RN Member Role: Primary Care Nurse Name: Osiris Portillo RN Position: [facility] RN Member Role: Primary Care Nurse Name: Mariana Ovalle RN Position: [facility] SN RN Member Role: Primary Care Nurse Name: eFlix Randle MD Position: [facility] Physician - Primary Care Member Role: PCP Address: Address: [address] [place] [address]- Care Team Related Persons Name: LEONARD MCCOLLUM Address: [address] [place] [address] Name: CLAUDIA LAI Address: home [place]KNOWN [address] Name: HEBER DUKES
--- OUTSIDE RECORDS SUMMARY | 2024-05-12 23:11 | XMS_ITS | Continuity of Care Document ---
Author Organization [facility] Address [address] [place] [address]- Care Team Providers Care Paper Core Machine Operator Name Role Phone Razia WILSON, Felix Denis Primary Care Physician [facility] Date[facility]s): 01/03/22 - 02/02/22 [facility] [address] [place] [address]- [place] Allergies, Adverse Reactions, Alerts Substance Reaction [...]
--- OUTSIDE RECORDS SUMMARY | 2024-05-12 23:11 | XMS_ITS | Continuity of Care Document ---
Author Organization [facility] Address [address] [address]- Care Team Providers Care Middleware Systems Architect Name Role Phone Felix Randle MD Primary Care Physician En[facility] Date(s): 11/12/21 - 12/12/21 [facility] [address] [address]- Attending Physician: AdmtrAzra Admitting Physician: Admtr, Ar8 Referring Physician: Admtr, [...]
--- OUTSIDE RECORDS SUMMARY | 2024-05-12 23:11 | XMS_ITS | Continuity of Care Document ---
Author Organization [facility] Address [address] [place] [address]- Care Team Providers Care Nailhead Setter Name Role Phone Razia WILSON, Felix Denis Primary Care Physician [facility] [id number] Date(s): 07/02/22 - 08/13/22 [facility] [address] [place] [address]- Attending Physician: Molina Barraza NP Admitting Physician: Molina Barraza NP Referring Physician: Lory Leonard MD Allergies, Adverse [...] EDT, Route to Pharmacy Electronically, [facility], Partial fill upon patient request [...] Care Team Personnel Name: Chela Jung Position: [facility] Member Role: Lifetime Consulting Physician Name: Aleks Rodriguez RN Position: [facility] Ralph RN Member Role: Primary Care Nurse Name: Zuleyma Gonzales RN Position: [facility] RN Member Role: Primary Care Nurse Name: Osiris Croft PharmD Position: [facility] Associate Professional Member Role: Lifetime Consulting Provider Address: Address: [address] [place] [address] [place] [address]- Name: Lizabeth Montaño RN Position: [facility] RN Member Role: Primary Care Nurse Name: Osiris Portillo RN Position: [facility] RN Member Role: Primary Care Nurse Name: Mariana Ovalle RN Position: [facility] RN Member Role: Primary Care Nurse Name: Felix Randle MD Position: [facility] Primary Care Physician Member Role: PCP Address: Address: [address] [place] [address]- Care Team Related Persons Name: LEONARD MCCOLLUM Address: home [address] [place] [address] Name: CLAUDIA LAI Address: home [place]KNOWN [address] UM Name: HEBER DUKES
--- OUTSIDE RECORDS SUMMARY | 2024-05-12 23:11 | XMS_ITS | Continuity of Care Document ---
Author Organization [facility] Address [address] [place] [address]- Care Team Providers Care Intermediate Designer Name Role Phone Felix Randle MD Primary Care Physician [phone] [place] [facility] [place]s): 04/23/20 - 05/23/20 [facility] [address] [place] [address]- [facility] Attending Physician: Azra Woods Admitting Physician: AdmAzra bateman Referring Physician: AdmtrAzra Allergies, Adverse Reactions, Alerts Substance Reaction Severity [...] 01/06/19 14:03:00 EDT, Route to Pharmacy Electronically, [id number], [facility] Start Date: [...] 12/16/18 17:08:59 EDT, Route to Pharmacy Electronically, [id number], [facility]... Start Date: 12/16/18 Stop Date: 01/15/19 Status: Ordered lisinopril 2.5 mg oral tablet 2.5 mg, 1, tablet, By Mouth, Daily, # 30 tablet, Refills 5, Tot. Refills 5, Maintenance, 07/04/19 15:04:15 EDT, Route to Pharmacy Electronically, [id number], [facility] Start Date: 07/04/19 Stop Date: [...] 04/05/20 15:47:00 EDT, Route to Pharmacy Electronically, [facility], 187.96, cm, 07/11/19 13:54:00 EST, [...] 09/20/19 10:26:00 EST, Route to Pharmacy Electronically, [facility], 187.96, cm, 07/11/19 13:54:00 EST, [...]
--- OUTSIDE RECORDS SUMMARY | 2024-05-12 23:11 | XMS_ITS | Continuity of Care Document ---
Author Organization [facility] Address [address] [place] [address]- Care Team Providers Care Bilingual Nanny Name Role Phone Felix Randle MD Primary Care Physician Encounter [facility] Date(s): 08/22/21 - 09/21/21 [facility] [address] [place] [address]- Attending Physician: AdmAzra bateman Admitting Physician: Admtr, Azra Referring Physician: Admtr, Ar8 Allergies, Adverse Reactions, [...]
--- OUTSIDE RECORDS SUMMARY | 2024-05-12 23:11 | XMS_ITS | Continuity of Care Document ---
Author Organization [facility] ter Address [address] [place] [address]- Care Team Providers Care Facilities Engineer Name Role Phone Razia WILSON, Felix Denis Primary Care Physician [place] [facility] [place]01/[place] - 09/01/[address] [address]- [facility] Attending Physician: Dana Godoy MD Allergies, Adverse [...] 01/06/19 14:03:00 EDT, Route to Pharmacy Electronically, [id number], [facility] Start Date: [...] 12/16/18 17:08:59 EDT, Route to Pharmacy Electronically, [id number], [facility]... Start Date: 12/16/18 Stop Date: 01/15/19 Status: Ordered lisinopril 2.5 mg oral tablet 2.5 mg, 1, tablet, By Mouth, Daily, # 30 tablet, Refills 5, Tot. Refills 5, Maintenance, 07/04/19 15:04:15 EDT, Route to Pharmacy Electronically, [id number], [facility] Start Date: 07/04/19 [...] 05/03/19 13:54:44 EDT, Route to Pharmacy Electronically, [id number], [facility] Start Date: 05/03/19 Stop Date: [...] 09/19/19 14:07:17 EST, Route to Pharmacy Electronically, [id number], [facility] Start Date: 09/19/19 Status: Ordered spironolactone 25 mg oral tablet 25 mg, 1, tablet, By Mouth, Daily, for 90 days, # 90 tablet, Refills 1, Tot. Refills 1, Hard Stop 09/19/19 14:07:17 EST, 03/23/19 14:07:17 EDT, Route to Pharmacy Electronically, [id number], [facility] Start Date: [...]
--- OUTSIDE RECORDS SUMMARY | 2024-05-12 23:11 | XMS_ITS | Continuity of Care Document ---
Author Organization [facility] Address [address] [place] [address]- Care Team Providers Care Commercial Art Instructor Name Role Phone Felix Randle MD Primary Care Physician [phone] [place] [facility]/17[place]23 - 03/19/23 [facility] [address] [place] [address] Attending Physician: Admtr, Azra Admitting Physician: Admtr, Azra Referring Physician: Admtr, Ar8 Allergies, Adverse Reactions, Alerts Substance Reaction Severity Status Venofer 1 bleeding hypotension Active 1hypotension Immunizations Given and Recorded Vaccine Date Status Refusal Reason zoster vaccine, inactivated 09/09/22 Recorded zoster vaccine, inactivated 06/25/22 Recorded influenza virus vaccine, inactivated 06/10/22 Faraz rded influenza virus vaccine, inactivated 06/07/21 Faraz rded influenza virus vaccine, inactivated 05/27/20 Faraz rded [id number] bivalent booster vax 05/27/22 Recorded SARS-CoV-2 (COVID-19) [...] AM, # 60 tablet, 0 Refills, Maintenance, 10/06/20 8:57:00 EDT, Tablet Start Date: 06/12/20 Status: [...] capsule, 6 Refills, Maintenance, 09/10/22 13:44:00 EST, [facility], Partial fill upon patient [...] Name: Chela Jung MA Tracee Position: [facility] MA Member Role: Lifetime Consulting Physician Name: Aleks Rodriguez RN Position: [facility] Rad RN Member Role: Primary Care Nurse Name: Zuleyma Gonzales RN Position: [facility] RN Member Role: Primary Care Nurse Name: Osiris Croft PharmD Position: [facility] Associate Professional Member Role: Lifetime Consulting Provider Address: Address: [address] [place] [address]- Name: Lizabeth Montaño RN Position: [facility] RN Member Role: Primary Care Nurse Name: Osiris Portillo RN Position: [facility] RN Member Role: Primary Care Nurse Name: Mariana Ovalle RN Position: [facility] SN RN Member Role: Primary Care Nurse Name: Felix Randle MD Position: [facility] Physician - Primary Care Member Role: PCP Address: Address: [address] [place] [address]- Care Team Related Persons Name: LEONARD MCCOLLUM Address: home [address] [place] [address] Name: CLAUDIA LAI Address: home [place]KNOWN [phone] Name: HEBER DUKES
--- OUTSIDE RECORDS SUMMARY | 2024-05-12 23:11 | XMS_ITS | Continuity of Care Document ---
Author Organization [facility] Address [address] [place] [address] [place]abel, [address] [place] [address]- Care Team Providers Care Chamber Of Commerce Division Manager Name Role Phone Felix Randle MD Primary Care Physician [facility]counter [facility] Date(s): 09/02/23 - 10/02/23 [facility] [address] [place] [address], [address] [place], [place] [address] Attending Physician: Admtr, Aime8 Admitting Physician: Admtr, Ar8 Referring Physician: Admtr, [...] virus vaccine, inactivated 05/27/20 Faraz rded SARS-CoV-2(COVID-19)mRNA-LNP vac(agv284) 07/09/23 Recorded [id number] bivalent booster vax 04/22/23 Recorded [id number] bivalent booster vax 05/27/22 Recorded zoster vaccine, [...] 07/22/23 11:59:00 EST, Route to Pharmacy Electronically, [facility], Partial fill upon patient request [...] Replace Required Details, Route to Pharmacy Electronically, [facility], 188, cm, 07/22/23 11:30:00 EST, [place]... Start Date: 07/22/23 Status: Ordered Jantoven 5 [...] 1 Refills, Maintenance, 09/06/23 13:58:00 EST, [facility], 187.96, cm, 09/03/23 10:59:00 EST, [...] 3 Refills, Maintenance, 09/11/23 12:06:00 EST, Capsule, [facility], Partial fill upon patient [...] Care team information Care Team Personnel Name: Aliciamirian GIANG Chela Tracee Position: [facility] MA Member Role: Lifetime Consulting Physician Name: Aleks Rodriguez RN Position: [facility] Ralph RN Member Role: Primary Care Nurse Name: Zuleyma Gonzales RN Position: [facility] RN Member Role: Primary Care Nurse Name: Osiris Croft PharmD Position: [facility] Associate Professional Member Role: Lifetime Consulting Provider Address: Address: [address] [place] [address] [place] [address]- Name: Lizabeth Montaño RN Position: [facility] RN Member Role: Primary Care Nurse Name: Osiris Portillo RN Position: [facility] RN Member Role: Primary Care Nurse Name: Mariana Ovalle RN Position: [facility] SN RN Member Role: Primary Care Nurse Name: Felix Randle MD Position: [facility] Physician - Primary Care Member Role: PCP Address: Address: [address] [place] [address]- Care Team Related Persons Name: LEONARD MCCOLLUM Address: home [address] [place] [address] Name: CLAUDIA LAI Address: home UNKNOWN [phone] UM Name: HEBER DUKES
--- OUTSIDE RECORDS SUMMARY | 2024-05-12 23:11 | XMS_ITS | Continuity of Care Document ---
Author Organization [facility] Address [address] [place] [address]- Care Team Providers Care Mortarman Name Role Phone Felix Randle MD Primary Care Physician [facility]counter [facility] Date(s): 03/24/23 - 04/23/23 [facility] [address] [place] [address] Attending Physician: AdmAzra bateman Admitting Physician: Admtr, [...] influenza virus vaccine, inactivated 05/27/20 Faraz rded [id number] bivalent booster vax 05/27/22 Recorded SARS-CoV-2 (COVID-19) [...] 11/26/22 13:30:00 EDT, Route to Pharmacy Electronically, [facility], Partial fill upon patient request [...] 04/05/23 8:01:00 EDT, Route to Pharmacy Electronically, [facility], 187.96, cm, 03/24/23 13:14:00 EDT, Height, 86.4, kg, 01/08/22 14:42:00 EDT, Dry Weight Start Date: 04/05/23 Status: Ordered Jantoven 5 mg oral tablet 1-2 TABLETS, By Mouth, Daily, PER PROTOCOL., # 135 tablet, 3 Refills, Maintenance, 08/25/22 9:47:00EST, [facility], 187.96, cm, 07/03/22 16:11:00 EDT, [...] 6 Refills, Maintenance, 09/10/22 13:44:00 EST, [facility], Partial fill upon patient [...] Team Personnel Name: Chela Jung MA Position: [facility] MA Member Role: Lifetime Consulting Physician Name: Aleks Rodriguez RN Position: [facility] Rad RN Member Role: Primary Care Nurse Name: Zuleyma Gonzales RN Position: [facility] RN Member Role: Primary Care Nurse Name: Osiris Croft PharmD Position: [facility] Associate Professional Member Role: Lifetime Consulting Provider Address: Address: [address] [place] [address]- Name: Lizabeth Montaño RN Position: [facility] RN Member Role: Primary Care Nurse Name: Osiris Portillo RN Position: [facility] RN Member Role: Primary Care Nurse Name: Mariana Ovalle RN Position: [facility] SN RN Member Role: Primary Care Nurse Name: Felix Randle MD Position: [facility] Physician - Primary Care Member Role: PCP Address: Address: [address] [place] [address]- Care Team Related Persons Name: LEONARD MCCOLLUM Address: home [address] [place] [address] Name: CLAUDIA LAI Address: home UNKNOWN [phone] Name: HEBER DUKES
--- OUTSIDE RECORDS SUMMARY | 2024-05-12 23:11 | XMS_ITS | Continuity of Care Document ---
Author Organization [facility] Address Unknown Care Team Providers Care Public Welfare Worker Name Role Phone Felix Randle MD Primary Care Physician [phone] Encounter [facility] Date(s): 01/14/22 - 02/13/22 [facility] Attending Physician: AdmAzra bateman Admitting Physician: AdmtrAzra [...]
--- OUTSIDE RECORDS SUMMARY | 2024-05-12 23:11 | XMS_ITS | Continuity of Care Document ---
Author Organization [facility] ter Address [address] [place] [address]- Care Team Providers Care Clinical Research Nurse Coordinator Name Role Phone Felix Randle MD Primary Care Physician Encounter [facility] [place] Date(s): 01/07/21 - 01/08/[address] [address] Attending Physician: Felix Randle MD Allergies, Adverse [...] 01/06/19 14:03:00 EDT, Route to Pharmacy Electronically, [id number], [facility] Start Date: 01/06/19 Stop Date: [...] 04/05/20 15:47:00 EDT, Route to Pharmacy Electronically, [facility], 187.96, cm, 07/11/19 13:54:00 EST, [...] EC Tablet Start Date: 06/27/20 Status: Ordered simvastatin 20 mg oral tablet [...]
--- OUTSIDE RECORDS SUMMARY | 2024-05-12 23:11 | XMS_ITS | Continuity of Care Document ---
Author Organization [facility] ter Address [address] [place] [address]- Care Team Providers Care Carrier Associate Name Role Phone Felix Randle MD Primary Care Physician [place] [facility] 11/14/19 - 01/20/[address] [address]- [facility] Attending Physician: Lory Leonard MD Admitting Physician: [...] 01/06/19 14:03:00 EDT, Route to Pharmacy Electronically, [id number], [facility] Start Date: [...] 12/16/18 17:08:59 EDT, Route to Pharmacy Electronically, [id number], [facility]... Start Date: 12/16/18 Stop Date: 01/15/19 Status: Ordered lisinopril 2.5 mg oral tablet 2.5 mg, 1, tablet, By Mouth, Daily, # 30 tablet, Refills 5, Tot. Refills 5, Maintenance, 07/04/19 15:04:15 EDT, Route to Pharmacy Electronically, [id number], [facility] Start Date: 07/04/19 Stop [...] 10/31/19 10:21:00 EST, Route to Pharmacy Electronically, [facility], 187.96, cm, 07/11/19 13:54:00 EST, [...] 09/20/19 10:26:00 EST, Route to Pharmacy Electronically, [facility], 187.96, cm, 07/11/19 13:54:00 EST, [...]
--- OUTSIDE RECORDS SUMMARY | 2024-05-12 23:11 | XMS_ITS | Continuity of Care Document ---
Author Organization [facility] Address Unknown Care Team Providers Care Telephone Exchange Operator Name Role Phone Razia WILSON, Felix Denis Primary Care Physician [phone] Encounter [facility] Date(s): 01/14/22 - 01/21/22 [facility] Attending Physician: Tasneem Siddiqui MD Referring Physician: Felix Randle MD Allergies, [...] recent to oldest [Reference Range]: 1 Height 187.96 cm (01/14/22 12:52 PM) Weight 91.2 kg (01/14/22 12:52 PM) Oxygen Saturation [94-100 %] 93 % *L* (01/14/22 12:52 PM) Pulse Rate [55-90 bpm] 59 bpm (01/14/22 12:52 PM) Body Mass Index [18.5-24.99] 25.81 *H* (01/14/22 12:52 PM) Blood Pressure [90-138/55-84 mm Hg] 90/4 0mm Hg (01/14/22 12:52 PM) Respiratory Rate [16-30 br/min] 16 br/mi n (01/14/22 12:52 PM) Temperature [96.8-100.4 DegF] 97 DegF (01/14/22 12:52 PM) Mode of Delivery (Oxygen) Room air (01/14/22 12:52 PM) Blood pressure sites Arm, left (01/14/22 12:52 PM) Temperature Route Temporal (01/14/22 12:52 PM) Weight Obtained Via Standing scale (01/14/22 12:52 PM) Social History Social History Type Response Smoking Status Former smoker, quit more than 30 days ago; Tobacco user in household: Yes; Other: quit 09/2018; entered on: 01/04/19 Sex
--- OUTSIDE RECORDS SUMMARY | 2024-05-12 23:11 | XMS_ITS | Continuity of Care Document ---
Author Organization [facility] ter Address [address] [place] [address]- Care Team Providers Care Line Installation Supervisor Name Role Phone Razia WILSON, Felix Denis Primary Care Physician En[place] [facility] [place] Date(s): 10/18/19 - 10/18/[address] [address]- [facility] Attending Physician: Lory Leonard MD Allergies, [...] 01/06/19 14:03:00 EDT, Route to Pharmacy Electronically, [id number], [facility] Start Date: [...] 12/16/18 17:08:59 EDT, Route to Pharmacy Electronically, [id number], [facility]... Start Date: 12/16/18 Stop Date: 01/15/19 Status: Ordered lisinopril 2.5 mg oral tablet 2.5 mg, 1, tablet, By Mouth, Daily, # 30 tablet, Refills 5, Tot. Refills 5, Maintenance, 07/04/19 15:04:15 EDT, Route to Pharmacy Electronically, [id number], [facility] Start Date: 07/04/19 [...] 05/03/19 13:54:44 EDT, Route to Pharmacy Electronically, [id number], [facility] Start Date: 05/03/19 Stop Date: [...] 09/20/19 10:26:00 EST, Route to Pharmacy Electronically, [facility], 187.96, cm, 07/11/19 13:54:00 EST, [...]
--- OUTSIDE RECORDS SUMMARY | 2024-05-12 23:11 | XMS_ITS | Continuity of Care Document ---
Author Organization [facility] Address [address] [place] [address]- Care Team Providers Care Senior Genetic Counselor Name Role Phone Felix Randle MD Primary Care Physician En[place] [facility] [place] Date(s): 11/30/23 - 12/30/23 [facility] [address] [place] [address]- Attending Physician: Azra Woods Admitting Physician: AdmAzra [...] virus vaccine, inactivated 05/27/20 Faraz rded SARS-CoV-2(COVID-19)mRNA-LNP vac(mpp693) 07/09/23 Recorded [id number] bivalent booster vax 04/22/23 Recorded [id number] bivalent booster vax 05/27/22 Recorded zoster vaccine, [...] Replace Required Details, Route to Pharmacy Electronically, [facility], 188, cm, 07/22/23 11:30:00 EST, Kary... Start Date: 07/22/23 Status: Ordered humidifier humidifier, See Instructions, # 1 each, Refills 0, Tot. Refills 0, Maintenance, humidified air mistsystem to be used at night, 11/18/23 15:15:00 EDT, Supply Start Date: 11/18/23 Status: Ordered Jantoven 5 mg oral tablet 1-2 TABLETS, By Mouth, Daily, PER PROTOCOL., # 135 tablet, 3 Refills, Maintenance, 10/12/23 9:09:00EST, [facility], 187.96, cm, 09/25/23 8:15:00 EST, [...] 1 Refills, Maintenance, 09/06/23 13:58:00 EST, [facility], 187.96, cm, 09/03/23 10:59:00 EST, [...] 3 Refills, Maintenance, 09/11/23 12:06:00 EST, Capsule, [facility], Partial fill upon patient request [...] Personnel Name: Erich RAHAT Chela Tracee Position: [facility] MA Member Role: Lifetime Consulting Physician Name: Aleks Rodriguez RN Position: [facility] Ralph RN Member Role: Primary Care Nurse Name: Zuleyma Gonzales RN Position: [facility] RN Member Role: Primary Care Nurse Name: Osiris Croft PharmD Position: [facility] Associate Professional Member Role: Lifetime Consulting Provider Address: Address: [address] [place] [address] [place] [address]- Name: Lizabeth Montaño RN Position: [facility] RN Member Role: Primary Care Nurse Name: Osiris Portillo RN Position: [facility] RN Member Role: Primary Care Nurse Name: Mariana Ovalle RN Position: [facility] SN RN Member Role: Primary Care Nurse Name: Felix Randle MD Position: [facility] Physician - Primary Care Member Role: PCP Address: Address: [address] [place] [address]- Care Team Related Persons Name: LEONARD MCCOLLUM Address: home [address] [place] [address] Name: CLAUDIA LAI Address: home UNKNOWN [id number] UM Name: HEBER DUKES
--- OUTSIDE RECORDS SUMMARY | 2024-05-12 23:11 | XMS_ITS | Continuity of Care Document ---
Author Organization [facility] ter Address [address] [place] [address]- Care Team Providers Care Counter Intelligence Name Role Phone Felix Randle MD Primary Care Physician [phone] Encounter [facility] [place] Date(s): 06/06/20 - 07/12/[address] [address] Attending Physician: Adelso Garay MD Admitting Physician: [...] 01/06/19 14:03:00 EDT, Route to Pharmacy Electronically, [id number], [facility] Start Date: 01/06/19 Stop Date: [...] 04/05/20 15:47:00 EDT, Route to Pharmacy Electronically, [facility], 187.96, cm, 07/11/19 13:54:00 EST, [...]
--- OUTSIDE RECORDS SUMMARY | 2024-05-12 23:12 | XMS_ITS | Continuity of Care Document ---
Author Organization [facility] ter Address [address] [place] [address]- Care Team Providers Care New Product Trainer Name Role Phone Razia WILSON, Felix Denis Primary Care Physician Encounter [facility] [place] Date(s): 08/23/19 - 08/23/[address] [address]- [facility] Attending Physician: Dana Godoy MD Allergies, Adverse [...] 01/06/19 14:03:00 EDT, Route to Pharmacy Electronically, [id number], [facility] Start Date: [...] 12/16/18 17:08:59 EDT, Route to Pharmacy Electronically, [id number], [facility]... Start Date: 12/16/18 Stop Date: 01/15/19 Status: Ordered lisinopril 2.5 mg oral tablet 2.5 mg, 1, tablet, By Mouth, Daily, # 30 tablet, Refills 5, Tot. Refills 5, Maintenance, 07/04/19 15:04:15 EDT, Route to Pharmacy Electronically, [id number], [facility] Start Date: 07/04/19 [...] 05/03/19 13:54:44 EDT, Route to Pharmacy Electronically, [id number], [facility] Start Date: 05/03/19 Stop Date: [...] 09/19/19 14:07:17 EST, Route to Pharmacy Electronically, [id number], [facility] Start Date: 09/19/19 Status: Ordered spironolactone 25 mg oral tablet 25 mg, 1, tablet, By Mouth, Daily, for 90 days, # 90 tablet, Refills 1, Tot. Refills 1, Hard Stop 09/19/19 14:07:17 EST, 03/23/19 14:07:17 EDT, Route to Pharmacy Electronically, [id number], [facility] Start Date: [...]
--- OUTSIDE RECORDS SUMMARY | 2024-05-12 23:12 | XMS_ITS | Continuity of Care Document ---
Author Organization [facility] Address [address] [place] [address]- Care Team Providers Care Esl Teacher Name Role Phone Razia WILSON, Felix Denis Primary Care Physician [phone] Encounter [facility] Date(s): 11/07/22 - 12/07/22 [facility] [address] [place], [place] [address] Attending Physician: Azra Woods Admitting Physician: AdmAzra [...] influenza virus vaccine, inactivated 05/27/20 Faraz rded [id number] bivalent booster vax 05/27/22 Recorded SARS-CoV-2 (COVID-19) [...] 90 capsule, 0 Refills, 09/09/22 13:59:00 EST, [facility], 187.96, cm, 07/03/22 16:11:00 EDT, Height, 86.4, kg, 01/08/22 14:42:00 EDT, Dry Weight Start Date: 09/09/22 Status: Ordered omeprazole 20 mg oral enteric coated capsule See Instructions, TAKE ONE CAPSULE BY MOUTH EVERY DAY, # 90 capsule, 0 Refills, Maintenance, 11/26/22 13:30:00 EDT, [facility], 187.96, cm, 11/19/22 12:56:00 EDT, [...] capsule, 6 Refills, Maintenance, 09/10/22 13:44:00 EST, [facility], Partial fill upon [...] Team Personnel Name: Chela Jung [place] Position: [facility] Member Role: Lifetime Consulting Physician Name: Aleks Rodriguez RN Position: [facility] Rad RN Member Role: Primary Care Nurse Name: Zuleyma Gonzales RN Position: [facility] RN Member Role: Primary Care Nurse Name: Osiris Croft PharmD Position: [facility] Associate Professional Member Role: Lifetime Consulting Provider Address: Address: [address] [place], [place] [address] [address]- Name: Lizabeth Montaño RN Position: [facility] RN Member Role: Primary Care Nurse Name: Osiris Portillo RN Position: [facility] RN Member Role: Primary Care Nurse Name: Mariana Ovalle RN Position: [facility] RN Member Role: Primary Care Nurse Name: Felix Randle MD Position: [facility] Primary Care Physician Member Role: PCP Address: Address: [place] [address]- [place] Care Team Related Persons Name: LEONARD MCCOLLUM Address: home [address] [place] [address] Name: CLAUDIA LAI Address: home [place]KNOWN [id number] Name: HEBER DUKES
--- OUTSIDE RECORDS SUMMARY | 2024-05-12 23:12 | XMS_ITS | Continuity of Care Document ---
Author Organization [facility] Address Unknown Care Team Providers Care Environmental Planning Engineer Name Role Phone Razia WILSON, Felix Denis Primary Care Physician [facility]counter [facility] Date(s): 12/31/21 - 01/30/22 [facility] Thor[facility] Surgery Allergies, Adverse Reactions, Alerts Substance [...] Maintenance, 07/11/19 13:56:15 EST, Tablet Start Date: 11/4/19 Status: Ordered Vitamin C 500 mg oral [...]
--- OUTSIDE RECORDS SUMMARY | 2024-05-12 23:12 | XMS_ITS | Continuity of Care Document ---
Author Organization [facility] Address [address] [place] [address]- Care Team Providers Care Product Engineering Manager Name Role Phone Razia WILSON, Felix Denis Primary Care Physician Encounter [facility] Date(s): 06/26/21 - 09/06/21 [facility] [address] [place] [address]- Attending Physician: Bar Thomas MD Admitting Physician: [...]
--- OUTSIDE RECORDS SUMMARY | 2024-05-12 23:12 | XMS_ITS | Continuity of Care Document ---
Author Organization [facility] Address [address] [place] [address] [address], [address] [place] [address]- Care Team Providers Care Paralegal Name Role Phone Razia WILSON, Felix Denis Primary Care Physician [phone] Encounter [facility] Date(s): 06/20/22 - 07/20/22 [facility] Thoracic Surgery [address] [place] [address], [address] [place], [place] [address] Allergies, Adverse Reactions, Alerts Substance Reaction [...] 07/01/22 10:41:00 EDT, Route to Pharmacy Electronically, [facility], Partial fill upon patient request [...] Care Team Personnel Name: Chela Jung Position: [facility] Member Role: Lifetime Consulting Physician Name: Aleks Rodriguez RN Position: [facility] Ralph RN Member Role: Primary Care Nurse Name: Zuleyma Gonzales RN Position: [facility] RN Member Role: Primary Care Nurse Name: Osiris Croft PharmD Position: [facility] Associate Professional Member Role: Lifetime Consulting Provider Address: Address: [address] [place] [address] [place] [address]- Name: Lizabeth Montaño RN Position: [facility] RN Member Role: Primary Care Nurse Name: Osiris Portillo RN Position: [facility] RN Member Role: Primary Care Nurse Name: Mariana Ovalle RN Position: [facility] RN Member Role: Primary Care Nurse Name: Felix Randle MD Position: [facility] Primary Care Physician Member Role: PCP Address: Address: [address] [place] [address]- Care Team Related Persons Name: LEONARD MCCOLLUM Address: home [address] [place] [address] Name: CLAUDIA LAI Address: home [place] [address] UM Name: HEBER DUKES
--- OUTSIDE RECORDS SUMMARY | 2024-05-12 23:12 | XMS_ITS | Continuity of Care Document ---
Author Organization [facility] Address [address] [place] [address]- Care Team Providers Care Hotel Front Office Manager Name Role Phone Felix Randle MD Primary Care Physician Encounter [facility] Date(s): 05/15/20 - 06/14/20 [facility] [address] [place] [address]- [facility] Allergies, Adverse Reactions, Alerts Substance Reaction Severity Status Venofer 1 Active 1hypotension Immunizations Given and Recorded Vaccine Date Status Refusal Reason pneumococcal 13-valent vaccine 10/17/18 Given Medications Blood pressure monitor Blood pressure monitor, See [...] 01/06/19 14:03:00 EDT, Route to Pharmacy Electronically, [id number], [facility] Start Date: 01/06/19 Stop Date: 05/06/19 Status: Ordered Docusate = 100 mg, By Mouth, Daily, 0 Refills, Maintenance, 06/12/20 9:02:00 EDT Start Date: 06/12/20 Status: Ordered ferrous sulfate 325 mg oral enteric coated tablet 325 mg, 1, tablet, By Mouth, 2 times a day, # 30 tablet, Refills 0, Maintenance, 06/12/20 8:58:00 EDT Start Date: 06/12/20 Status: Ordered magnesium [...] 04/05/20 15:47:00 EDT, Route to Pharmacy Electronically, [facility], 432.96, cm, 07/11/19 13:54:00 EST, Height, 90, kg, 12/13/18 13:58:00 EDT, Dry We... Start Date: 04/05/20 Stop Date: 10/02/20 Status: Ordered omeprazole 20 mg oral enteric coated capsule TAKE ONE CAPSULE BY MOUTH EVERY DAY Start Date: 04/24/20 Status: Ordered simvastatin 20 mg oral tablet 20 mg, 1, tablet, By Mouth, Daily at bedtime, # 30 tablet, Refills 0, Maintenance, 06/12/20 11:34:00 EDT Start Date: 06/12/20 Status: Ordered spironolactone 25 mg oral tablet 25 mg, 1, tablet, By Mouth, Daily, # 90 tablet, Refills 3, Tot. Refills 3, Maintenance, 09/20/19 10:26:00 EST, Route to Pharmacy Electronically, [facility], 459.96, cm, 07/11/19 13:54:00 EST, Height, 90, kg, [...] Tablet Start Date: 06/12/20 Status: Ordered warfarin 2.5 mg oral tablet [...]
--- OUTSIDE RECORDS SUMMARY | 2024-05-12 23:12 | XMS_ITS | Continuity of Care Document ---
Author Organization [facility] Address [address] [place] [address]- Care Team Providers Care Mixer Operator Vacuum Pan Salt Name Role Phone Razia WILSON, Felix Denis Primary Care Physician Encounter [facility] Date(s): 02/24/23 - 06/24/23 [facility] [address] [place] [address]- Attending Physician: Bar Thomas MD Admitting Physician: Bar Thomas MD Referring Physician: Felix Randle MD Allergies, Adverse Reactions, Alerts Substance Reaction Severity Status Venofer 1 bleeding hypotension Active 1hypotension Immunizations Given and Recorded Vaccine Date Status Refusal Reason [id number] bivalent booster vax 04/22/23 Recorded [id number] bivalent booster vax 05/27/22 Recorded zoster vaccine, [...] 11/26/22 13:30:00 EDT, Route to Pharmacy Electronically, [facility], Partial fill upon patient request [...] 04/05/23 8:01:00 EDT, Route to Pharmacy Electronically, [facility], 187.96, cm, 03/24/23 13:14:00 EDT, Height, 86.4, kg, 01/08/22 14:42:00 EDT, Dry Weight Start Date: 04/05/23 Status: Ordered Jantoven 5 mg oral tablet 1-2 TABLETS, By Mouth, Daily, PER PROTOCOL., # 135 tablet, 3 Refills, Maintenance, 08/25/22 9:47:00EST, [facility], 187.96, cm, 07/03/22 16:11:00 EDT, [...] Team Personnel Name: Chela Jung MA Position: [facility] [place] Member Role: Lifetime Consulting Physician Name: Aleks Rodriguez RN Position: [facility] RN Member Role: Primary Care Nurse Name: Zuleyma Gonzales RN Position: [facility] RN Member Role: Primary Care Nurse Name: Osiris Croft PharmD Position: [facility] Associate Professional Member Role: Lifetime Consulting Provider Address: Address: [address] [place] [address]- Name: Lizabeth Montaño RN Position: [facility] RN Member Role: Primary Care Nurse Name: Osiris Portillo RN Position: [facility] RN Member Role: Primary Care Nurse Name: Mariana Ovalle RN Position: [facility] SN RN Member Role: Primary Care Nurse Name: Felix Randle MD Position: [facility] Physician - Primary Care Member Role: PCP Address: Address: [place] [address]- Care Team Related Persons Name: LEONARD MCCOLLUM Address: [address] [place] [address] Name: CLAUDIA LAI Address: home [place]KNOWN [id number] Name: HEBER DUKES
--- OUTSIDE RECORDS SUMMARY | 2024-05-12 23:12 | XMS_ITS | Continuity of Care Document ---
Author Organization [facility] Address [address] [place] [address]- Care Team Providers Care Production Supv Name Role Phone Felix Randle MD Primary Care Physician [facility] Date(s): 08/26/21 - 09/25/21 [facility] [address] [place] [address]- [place] Allergies, Adverse Reactions, Alerts Substance Reaction [...]
--- OUTSIDE RECORDS SUMMARY | 2024-05-12 23:12 | XMS_ITS | Continuity of Care Document ---
Author Organization [facility] Address [address] [place] [address]- Care Team Providers Care Acute Care Nurse Practitioner Name Role Phone Felix Randle MD Primary Care Physician Encounter [facility] Date(s): 09/29/22 - 10/29/22 [facility] [address] [place] [address]- [place] Allergies, Adverse Reactions, Alerts Substance Reaction [...] 07/01/22 10:41:00 EDT, Route to Pharmacy Electronically, [facility], Partial fill upon patient request if the prescription is for a schedul... Start Date: 07/01/22 Stop Date: 12/28/22 Status: Ordered Jantoven 5 mg oral tablet 1-2 TABLETS, By Mouth, Daily, PER PROTOCOL., # 135 tablet, 3 Refills, Maintenance, 08/25/22 9:47:00EST, [facility], 187.96, cm, 07/03/22 16:11:00 EDT, [...] capsule, 6 Refills, Maintenance, 09/10/22 13:44:00 EST, [facility], Partial fill upon [...] Team Personnel Name: Chela Jung Tracee Position: [facility] KENYETTA GIANG Member Role: Lifetime Consulting Physician Name: Aleks Rodriguez RN Position: [facility] Ralph RN Member Role: Primary Care Nurse Name: Zuleyma Gonzales RN Position: [facility] RN Member Role: Primary Care Nurse Name: Osiris Croft PharmD Position: [facility] Associate Professional Member Role: Lifetime Consulting Provider Address: Address: [address] [place] [address] [place] [address]- Name: Lizabeth Montaño RN Position: [facility] RN Member Role: Primary Care Nurse Name: Osiris Portillo RN Position: [facility] RN Member Role: Primary Care Nurse Name: Mariana Ovalle RN Position: [facility] RN Member Role: Primary Care Nurse Name: Felix Randle MD Position: [facility] Primary Care Physician Member Role: PCP Address: Address: [address] [place] [address]- Care Team Related Persons Name: LEONARD MCCOLLUM Address: home [address] [place] [address] Name: CLAUDIA LAI Address: home [place]KNOWN [id number] Name: HEBER DUKES
--- OUTSIDE RECORDS SUMMARY | 2024-05-12 23:12 | XMS_ITS | Continuity of Care Document ---
Author Organization [facility] Address [address] [place], [place] [address], [address] [place] [address]- Care Team Providers Care Slot Key Person Name Role Phone Felix Randle MD Primary Care Physician [phone] Encounter [facility] Date(s): 07/04/22 - 08/03/22 [facility] Thoracic Surgery [address] [place] [address], [address] [place], [place] [address] Allergies, Adverse Reactions, [...] Care Team Personnel Name: Chela Jung Position: [facility] Member Role: Lifetime Consulting Physician Name: Aleks Rodriguez RN Position: [facility] Ralph RN Member Role: Primary Care Nurse Name: Zuleyma Gonzales RN Position: [facility] RN Member Role: Primary Care Nurse Name: Osiris Croft PharmD Position: [facility] Associate Professional Member Role: Lifetime Consulting Provider Address: Address: [address] [place] [address] [place] [address]- Name: Lizabeth Montaño RN Position: [facility] RN Member Role: Primary Care Nurse Name: Osiris Portillo RN Position: [facility] RN Member Role: Primary Care Nurse Name: Mariana Ovalle RN Position: [facility] RN Member Role: Primary Care Nurse Name: Felix Randle MD Position: [facility] Primary Care Physician Member Role: PCP Address: Address: [place] [address]- Care Team Related Persons Name: LEONARD MCCOLLUM Address: home [address] [place] [address] Name: CLAUDIA LAI Address: home [place]KNOWN [id number] UM Name: HEBER DUKES
--- OUTSIDE RECORDS SUMMARY | 2024-05-12 23:12 | XMS_ITS | Continuity of Care Document ---
Author Organization [facility] ter Address [address] [place] [address]- Care Team Providers Care Insurance Investigator Name Role Phone Felix Randle MD Primary Care Physician Encounter [facility] Date(s): 12/23/21 - 02/01/[address] [address] Attending Physician: Lory Leonard MD Admitting Physician: [...]
--- OUTSIDE RECORDS SUMMARY | 2024-05-12 23:12 | XMS_ITS | Continuity of Care Document ---
Author Organization [facility] Address [address] [place] [address]- Care Team Providers Care Emergency Preparedness Manager Name Role Phone Razia WILSON, Felix Denis Primary Care Physician Encounter [facility] Date(s): 08/15/22 - 09/14/22 [facility] [address] [place] [address]- [place] Allergies, Adverse Reactions, Alerts Substance Reaction [...] EDT, Route to Pharmacy Electronically, [facility], Partial fill upon patient request if the prescription is for a schedul... Start Date: 07/01/22 Stop Date: 12/28/22 Status: Ordered Jantoven 5 mg oral tablet 1-2 TABLETS, By Mouth, Daily, PER PROTOCOL., # 135 tablet, 3 Refills, Maintenance, 08/25/22 9:47:00EST, [facility], 187.96, cm, 07/03/22 16:11:00 EDT, [...] 0 Refills, 09/09/22 13:59:00 EST, [facility], 187.96, cm, 07/03/22 16:11:00 EDT, [...] capsule, 6 Refills, Maintenance, 09/10/22 13:44:00 EST, [facility], Partial fill upon patient [...] Team Personnel Name: Chela Jung Tracee Position: [facility] Member Role: Lifetime Consulting Physician Name: Aleks Rodriguez RN Position: [facility] Ralph RN Member Role: Primary Care Nurse Name: Zuleyma Gonzales RN Position: [facility] RN Member Role: Primary Care Nurse Name: Osiris Croft PharmD Position: [facility] Associate Professional Member Role: Lifetime Consulting Provider Address: Address: [address] [place] [address] [place] [address]- Name: Lizabeth Montaño RN Position: [facility] RN Member Role: Primary Care Nurse Name: Osiris Portillo RN Position: [facility] RN Member Role: Primary Care Nurse Name: Mariana Ovalle RN Position: [facility] RN Member Role: Primary Care Nurse Name: Felix Randle MD Position: [facility] Primary Care Physician Member Role: PCP Address: Address: [address] [place] [address]- [place] Care Team Related Persons Name: LEONARD MCCOLLUM Address: home [address] [place] [address] Name: CLAUDIA LAI Address: home [place]KNOWN [address] Name: HEBER DUKES
--- OUTSIDE RECORDS SUMMARY | 2024-05-12 23:12 | XMS_ITS | Continuity of Care Document ---
Author Organization [facility] Address [address] [place] [address]- Care Team Providers Care Ship Rigger Apprentice Name Role Phone Razia WILSON, Felix Denis Primary Care Physician [facility] Date(s[facility] 03/31/24 - 04/30/24 [facility] [address] [place] [address] Attending Physician: Azra Woods Admitting Physician: Azra Woods Referring Physician: AdmtrAzra Allergies, Adverse Reactions, Alerts [...] virus vaccine, inactivated 05/27/20 Faraz rded SARS-CoV-2(COVID-19)mRNA-LNP vac(pel120) 07/09/23 Recorded [id number] bivalent booster vax 04/22/23 Recorded [id number] bivalent booster vax 05/27/22 Recorded zoster vaccine, [...] 04/11/24 9:46:00 EDT, Route to Pharmacy Electronically, [facility], 187.96, cm, 03/31/24 9:06:00 EDT, [...] 3 Refills, Maintenance, 10/12/23 9:09:00EST, [facility], 187.96, cm, 09/25/23 8:15:00 EST, [...] 1 Refills, Maintenance, 03/06/24 11:20:00 EDT, [facility], 187.96, cm, 03/01/24 13:39:00 EDT, [...] Refills, Maintenance, 08/25/23 13:12:00 EST, [facility], Partial fill upon patient request [...] 3 Refills, Maintenance, 09/11/23 12:06:00 EST, Capsule, [facility], Partial fill upon patient [...] Personnel Name: Aliciamirian GIANG Chela Tracee Position: [facility] [place] Member Role: Lifetime Consulting Physician Name: Aleks Rodriguez RN Position: [facility] Ralph RN Member Role: Primary Care Nurse Name: Zuleyma Gonzales RN Position: [facility] SN RN Member Role: Primary Care Nurse Name: Lizabeth Montaño RN Position: [facility] RN Member Role: Primary Care Nurse Name: Osiris Portillo RN Position: [facility] RN Member Role: Primary Care Nurse Name: Mariana Ovalle RN Position: [facility] SN RN Member Role: Primary Care Nurse Name: Felix Randle MD Position: [facility] Physician - Primary Care Member Role: PCP Address: Address: [place] [address]- [place] Care Team Related Persons Name: LEONARD MCCOLLUM Address: home [address] [place] [address] Name: CLAUDIA LAI Address: home [place]KNOWN [address] UM Name: HEBER DUKES
--- OUTSIDE RECORDS SUMMARY | 2024-05-12 23:12 | XMS_ITS | Continuity of Care Document ---
Author Organization [facility] Address [address] [place] [address]- Care Team Providers Care Moving Consultant Name Role Phone Razia WILSON, Felix Denis Primary Care Physician Encounter [facility] Date(s): 08/13/22 - 09/12/22 [facility] [address] [place] [address]- [place] Allergies, Adverse Reactions, Alerts Substance Reaction [...] EDT, Route to Pharmacy Electronically, [facility], Partial fill upon patient request if the prescription is for a schedul... Start Date: 07/01/22 Stop Date: 12/28/22 Status: Ordered Jantoven 5 mg oral tablet 1-2 TABLETS, By Mouth, Daily, PER PROTOCOL., # 135 tablet, 3 Refills, Maintenance, 08/25/22 9:47:00EST, [facility], 187.96, cm, 07/03/22 16:11:00 EDT, [...] 0 Refills, 09/09/22 13:59:00 EST, [facility], 187.96, cm, 07/03/22 16:11:00 EDT, [...] capsule, 6 Refills, Maintenance, 09/10/22 13:44:00 EST, [facility], Partial fill upon patient [...] Team Personnel Name: Chela Jung Tracee Position: [facility] Member Role: Lifetime Consulting Physician Name: Aleks Rodriguez RN Position: [facility] Ralph RN Member Role: Primary Care Nurse Name: Zuleyma Gonzales RN Position: [facility] RN Member Role: Primary Care Nurse Name: Osiris Croft PharmD Position: [facility] Associate Professional Member Role: Lifetime Consulting Provider Address: Address: [address] [place] [address] [place] [address]- Name: Lizabeth Montaño RN Position: [facility] RN Member Role: Primary Care Nurse Name: Osiris Portillo RN Position: [facility] RN Member Role: Primary Care Nurse Name: Mariana Ovalle RN Position: [facility] RN Member Role: Primary Care Nurse Name: Felix Randle MD Position: [facility] Primary Care Physician Member Role: PCP Address: Address: [address] [place] [address]- [place] Care Team Related Persons Name: LEONARD MCCOLLUM Address: home [address] [place] [address] Name: CLAUDIA LAI Address: home [place]KNOWN [phone] Name: HEBER DUKES
--- OUTSIDE RECORDS SUMMARY | 2024-05-12 23:12 | XMS_ITS | Continuity of Care Document ---
Author Organization [facility] ter Address [address] [place] [address]- Care Team Providers Care Banker Mason Name Role Phone Felix Randle MD Primary Care Physician Encounter [facility] Date(s): 01/31/20 - 02/01/[address] [address]- [facility] Attending Physician: Felix Randle MD Allergies, [...] 01/06/19 14:03:00 EDT, Route to Pharmacy Electronically, [id number], [facility] Start Date: [...] 12/16/18 17:08:59 EDT, Route to Pharmacy Electronically, [id number], [facility]... Start Date: 12/16/18 Stop Date: 01/15/19 Status: Ordered lisinopril 2.5 mg oral tablet 2.5 mg, 1, tablet, By Mouth, Daily, # 30 tablet, Refills 5, Tot. Refills 5, Maintenance, 07/04/19 15:04:15 EDT, Route to Pharmacy Electronically, [id number], [facility] Start Date: 07/04/19 [...] 10/31/19 10:21:00 EST, Route to Pharmacy Electronically, [facility], 187.96, cm, 07/11/19 13:54:00 EST, [...] 09/20/19 10:26:00 EST, Route to Pharmacy Electronically, [facility], 187.96, cm, 07/11/19 13:54:00 EST, [...]
--- OUTSIDE RECORDS SUMMARY | 2024-05-12 23:12 | XMS_ITS | Continuity of Care Document ---
Author Organization [facility] Address [address] [place] [address] isabel, [address] [place] [address]- Care Team Providers Care Cyber Intel Planner Name Role Phone Razia WILSON, Felix Denis Primary Care Physician Encounter [facility] [place] Date(s): 06/26/22 - 07/03/22 [facility] [address] [place] [address], [address] [place], [place] [address] Attending Physician: Tasneem Siddiqui MD Referring Physician: Not on Staff, Referring MD Allergies, Adverse Reactions, Alerts Substance Reaction [...] EDT, Route to Pharmacy Electronically, [facility], Partial fill upon patient request [...] 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 disease, stage 3a [...] oldest [Reference Range]: 1 Height 187.96 cm (06/26/22 4:23 PM) Weight 84.7 kg (06/26/22 4:23 PM) Oxygen Saturation [94-100 %] 92 % *L* (06/26/22 4:23 PM) Pulse Rate [55-90 bpm] 63 bpm (06/26/22 4:23 PM) Body Mass Index [18.5-24.99 kg/m2] 23.97 kg/m2 (06/26/22 4:23 PM) Blood Pressure [90-138/55-84 mm Hg] 92/4 8mm Hg (06/26/22 4:23 PM) Respiratory Rate [16-30 br/min] 17 br/mi n (06/26/22 4:23 PM) Temperature [96.8-100.4 DegF] 98.9 DegF (06/26/22 4:23 PM) Mode of Delivery (Oxygen) Room air (06/26/22 4:23 PM) Blood pressure sites Arm, right (06/26/22 4:23 PM) Temperature Route Temporal (06/26/22 4:23 PM) Weight Obtained Via Standing scale (06/26/22 4:23 PM) Social History Social History Type Response Smoking Status Former smoker, quit more than 30 days ago; Tobacco user in household: Yes; Other: quit 09/2018; entered on: 01/04/19 Sex Patient Care team information Personnel Name: Razia WILSON, Felix Denis Address: Address: [address] [place] [address]
--- OUTSIDE RECORDS SUMMARY | 2024-05-12 23:12 | XMS_ITS | Continuity of Care Document ---
Author Organization [facility] ter Address [address] [place] [address]- Care Team Providers Care Desulphurizer Operator Name Role Phone Razia WILSON, Felix Dneis Primary Care Physician [phone] Encounter [facility] [place] Date(s): 09/01/19 - 09/01/[address] [address]- [facility] Attending Physician: Lory Leonard MD Allergies, [...] 01/06/19 14:03:00 EDT, Route to Pharmacy Electronically, [id number], [facility] Start Date: [...] 12/16/18 17:08:59 EDT, Route to Pharmacy Electronically, [id number], [facility]... Start Date: 12/16/18 Stop Date: 01/15/19 Status: Ordered lisinopril 2.5 mg oral tablet 2.5 mg, 1, tablet, By Mouth, Daily, # 30 tablet, Refills 5, Tot. Refills 5, Maintenance, 07/04/19 15:04:15 EDT, Route to Pharmacy Electronically, [id number], [facility] Start Date: 07/04/19 [...] 05/03/19 13:54:44 EDT, Route to Pharmacy Electronically, [id number], [facility] Start Date: 05/03/19 Stop Date: [...] 09/19/19 14:07:17 EST, Route to Pharmacy Electronically, [id number], [facility] Start Date: 09/19/19 Status: Ordered spironolactone 25 mg oral tablet 25 mg, 1, tablet, By Mouth, Daily, for 90 days, # 90 tablet, Refills 1, Tot. Refills 1, Hard Stop 09/19/19 14:07:17 EST, 03/23/19 14:07:17 EDT, Route to Pharmacy Electronically, [id number], [facility] Start Date: [...]
--- OUTSIDE RECORDS SUMMARY | 2024-05-12 23:12 | XMS_ITS | Continuity of Care Document ---
Author Organization [facility] Address [address] [place] [address]- Care Team Providers Care Animal Husbandman Name Role Phone Felix Randle MD Primary Care Physician [phone] Encounter [facility] [place] Date(s): 03/02/23 - 03/09/23 [facility] [address] [place] [address]- Referring Physician: Lory Leonard MD Allergies, Adverse Reactions, Alerts Substance Reaction Severity Status Venofer 1 bleeding hypotension Active 1hypotension Immunizations Given and Recorded Vaccine Date Status Refusal Reason zoster vaccine, inactivated 09/09/22 Recorded zoster vaccine, inactivated 06/25/22 Recorded influenza virus vaccine, inactivated 06/10/22 Faraz rded influenza virus vaccine, inactivated 06/07/21 Faraz rded influenza virus vaccine, inactivated 05/27/20 Faraz rded [id number] bivalent booster vax 05/27/22 Recorded SARS-CoV-2 (COVID-19) [...] capsule, 6 Refills, Maintenance, 09/10/22 13:44:00 EST, [facility], Partial fill upon patient [...] oldest [Reference Range]: 1 Height 187.96 cm (03/02/23 8:06 AM) Weight 84 kg (03/02/23 8:06 AM) Oxygen Saturation [94-100 %] 95 % (03/02/23 8:06 AM) Pulse Rate [55-90 bpm] 62 bpm (03/02/23 8:06 AM) Body Mass Index [18.5-24.99 kg/m2] 23.78 kg/m2 (03/02/23 8:06 AM) Blood Pressure [90-138/55-84 mm Hg] 116/ 54mm Hg (03/02/23 8:06 AM) Mode of Delivery (Oxygen) Room air (03/02/23 8:06 AM) Blood pressure sites Arm, left (03/02/23 8:06 AM) Social History Social History Type Response Smoking Status Former smoker, quit more than 30 days ago entered on: 02/17/23 Sex Note * Deepak Montgomery: PERFORM, SIGN, VERIFY Event Display: Patient Education/Instruction Authored Date: [id number] [facility] *[facility] [address] Clinical Summary Name REGAN DUKES Age 73 Years 1950 PCP Felix Randle MD PCP Visit Date 03/02/2023 07:58:00 Additional Instructions: Scheduled Appointments?? Future Appointments ?*[place] [address]??[place],??[place],??[address] ?Phone:??--?Fax:??-- ?Appt. Date:??05/19/2023?2:00 PM ?Scheduled Provider:??Felix Randle MD ?*[facility] ?Phone:??--?Fax:??-- ?Appt. Date:??05/25/2023?7:40 AM ?Scheduled Provider:??Device Inter[facility]ation Follow-Up Instructions ?? With: Address: When: Abhay WILSON, Adriana Clifton 03/02/2023 12:00 AM, only if needed Comments: for any further vascular issues/concerns Diagnosis Medications: Please continue your medications until treatment is completed or stopped by your provider. Discuss any questions related to medications with your provider. Medications to Continue with No Changes These medications were not printed or sent to your pharmacy Ascorbic Acid (Vitamin C 500 mg oral tablet) 1 tab(s) Oral Daily in the morning. Next Dose: Calcium Carbonate (calcium carbonate 600 mg oral tablet) 1 tab(s) Oral Daily in the morning. Next Dose: Cyclobenzaprine (cyclobenzaprine 10 mg oral tablet) 1 tab(s) Oral 3 times a day as needed for spasm. Refills: 0. Next Dose: Digoxin (digoxin 0.25 mg oral tablet) 1 tab(s) Oral Thursday, Thursday and Thursday for 30 Days. changes 01/26. Refills: 3. Next Dose: Docusate 100 Milligram Oral twice a day. Next Dose: Ferrous Sulfate (ferrous sulfate 325 mg oral enteric coated tablet) 1 tab(s) Oral twice a day for 90 Days. Refills: 0. Next Dose: Lisinopril (lisinopril 2.5 mg oral tablet) 1 tab(s) Oral Daily. Refills: 0. Next Dose: Magnesium Oxide (magnesium oxide 250 mg oral tablet) 1 tab(s) Oral Daily at Bedtime. Next Dose: Metoprolol (metoprolol 25 mg oral tablet, extended release) 1 tab(s) Oral Daily for 30 Days. Refills: 5. Next Dose: Omeprazole (omeprazole 20 mg oral enteric coated capsule) 1 capsule Oral Daily. Refills: 1. Next Dose: Simvastatin (simvastatin 20 mg oral tablet) 1 tab(s) Oral Daily at Bedtime. Refills: 0. Next Dose: Spironolactone (spironolactone 25 mg oral tablet) 1 tab(s) Oral Daily for 90 Days. Refills: 3. Next Dose: tafamidis (tafamidis 61 mg oral capsule) 1 capsule Oral Daily for 30 Days. Refills: 6. Next Dose: tafamidis (Vyndamax 61 mg oral capsule) 1 capsule Oral Daily. swallow whole. Next Dose: Terazosin (terazosin 10 mg oral capsule) 1 capsule Oral Daily at Bedtime. Refills: 0. Next Dose: Thiamine (Vitamin B1) Daily. Next Dose: torsemide (torsemide 20 mg oral tablet) 2 tab(s) Oral Daily. Refills: 0. Next Dose: Warfarin (Jantoven 5 mg oral tablet) 1-2 TABLETS Oral Daily. PER PROTOCOL.. Refills: 3. Next Dose: Allergy Info:?? Venofer Medications Given This Visit Future Orders ?No future orders Vital Signs Height 187.96 cm Weight 84 kg BMI 23.78 kg/m2 Blood Pressure 116 mm Hg/54 mm Hg Temperature Pulse Rate 62 bpm Respiratory Rate 02 Sat Mode of Delivery 95 %/Room air You can now view a summary of your hospital visit from the comfort of your home through a free online portal called [employer]. [employer] is a website that allows you to securely view your medical information including discharge summary, medications and follow-up visits. ??You can alsosend a secure electronic message to your doctor???s office to request appointments, renew medications or just ask a question. You can enroll at [email or web address] or register during your next office visit. Disclaimer:?? The information provided is of a general nature and is intended to be used in conjunction with the recommendations and advice of your health care practitioner. ??Every effort has been made to ensure that the information provided is accurate and complete at the time it is provided to you however, as your needs change, or, as new ??information becomes available, different or additional instructions may be required. If you have questions, please consult with your primary care provider or pharmacist, as appropriate. ??This information is not intended to serve as substitution for assessment and evaluation by a qualified health care provider. If you do not have a primary care provider, you may find a [facility] provider by calling [facility] [employer] Link at [phone]. For information about the plan of care including goals and instructions for your diagnosis, please see the patient education orders section of this document. Patient Education Materials?? The content of this educational material or handout may have been modified, supplemented, or adapted from its original content and format to support your individualized medical care. Patient Care team information Care Team Personnel Name: Chela Jung MA Position: [facility] MA Member Role: Lifetime Consulting Physician Name: Aleks Rodriguez RN Position: [facility] Rad RN Member Role: Primary Care Nurse Name: Zuleyma Gonzales RN Position: [facility] RN Member Role: Primary Care Nurse Name: Osiris Croft PharmD Position: [facility] Associate Professional Member Role: Lifetime Consulting Provider Address: Address: [address] [place] [address]- Name: Lizabeth Montaño RN Position: [facility] RN Member Role: Primary Care Nurse Name: Osiris Portillo RN Position: [facility] RN Member Role: Primary Care Nurse Name: Mariana Ovalle RN Position: [facility] SN RN Member Role: Primary Care Nurse Name: Felix Randle MD Position: [facility] Physician - Primary Care Member Role: PCP Address: Address: [address] [place] [address]- Care Team Related Persons Name: LEONARD MCCOLLUM Address: home [address] [place] [address] Name: CLAUDIA LAI Address: home [place]KNOWN [id number] UM Name: HEBER DUKES
--- OUTSIDE RECORDS SUMMARY | 2024-05-12 23:12 | XMS_ITS | Continuity of Care Document ---
Author Organization [facility] ter Address [address] [place] [address]- Care Team Providers Care Heating Engineer Name Role Phone Felix Randle MD Primary Care Physician [place] [facility] [place] 09/27/[place] - 10/04/[address] [address]- [facility] Attending Physician: Felix Randle MD Allergies, Adverse [...] 01/06/19 14:03:00 EDT, Route to Pharmacy Electronically, [id number], [facility] Start Date: [...] 12/16/18 17:08:59 EDT, Route to Pharmacy Electronically, [id number], [facility]... Start Date: 12/16/18 Stop Date: 01/15/19 Status: Ordered lisinopril 2.5 mg oral tablet 2.5 mg, 1, tablet, By Mouth, Daily, # 30 tablet, Refills 5, Tot. Refills 5, Maintenance, 07/04/19 15:04:15 EDT, Route to Pharmacy Electronically, [id number], [facility] Start Date: 07/04/19 [...] 05/03/19 13:54:44 EDT, Route to Pharmacy Electronically, [id number], [facility] Start Date: 05/03/19 Stop Date: [...] 09/20/19 10:26:00 EST, Route to Pharmacy Electronically, [facility], 187.96, cm, 07/11/19 13:54:00 EST, [...]
--- OUTSIDE RECORDS SUMMARY | 2024-05-12 23:12 | XMS_ITS | Continuity of Care Document ---
Author Organization [facility] ter Address [address] [place] [address]- Care Team Providers Care Ux Developer Designer Name Role Phone Felix Randle MD Primary Care Physician [phone] Encounter [facility] [place] Date(s): 05/28/22 - 07/05/[address] [address] Attending Physician: Corin Howard MD Admitting Physician: Corin Howard MD Allergies, Adverse Reactions, Alerts Substance Reaction [...] Name: Razia WILSON, Felix Denis Address: Address: [address] [place] [address]
--- OUTSIDE RECORDS SUMMARY | 2024-05-12 23:12 | XMS_ITS | Continuity of Care Document ---
Author Organization [facility] Address [address] [place] [address]- Care Team Providers Care Bike Assembler Name Role Phone Felix Randle MD Primary Care Physician [place] [facility] [place] 08/05/21 - 09/04/21 [facility] [address] [place] [id number] Allergies, Adverse Reactions, Alerts Substance [...]
--- OUTSIDE RECORDS SUMMARY | 2024-05-12 23:12 | XMS_ITS | Continuity of Care Document ---
Author Organization [facility] Address [address] [place] [address]- Care Team Providers Care Chemical Supervisor Name Role Phone Felix Randle MD Primary Care Physician [place] [facility] [place] Date(s): 08/20/21 - 09/19/21 [facility] [address] [place] [address]- [place] Allergies, Adverse Reactions, Alerts Substance Reaction [...]
--- OUTSIDE RECORDS SUMMARY | 2024-05-12 23:12 | XMS_ITS | Continuity of Care Document ---
Author Organization [facility] Address [address] [place] [address]- Care Team Providers Care Factory Laborer Name Role Phone Felix Randle MD Primary Care Physician [phone] [facility] [place] Date(s): 04/24/20 - 05/24/20 [facility] [address] [place] [address]- [facility] Attending Physician: Azra Woods Admitting Physician: AdmAzra bateman Referring Physician: Admtr, Ar8 Allergies, Adverse Reactions, [...] 01/06/19 14:03:00 EDT, Route to Pharmacy Electronically, [id number], [facility] Start Date: [...] 12/16/18 17:08:59 EDT, Route to Pharmacy Electronically, [id number], [facility]... Start Date: 12/16/18 Stop Date: 01/15/19 Status: Ordered lisinopril 2.5 mg oral tablet 2.5 mg, 1, tablet, By Mouth, Daily, # 30 tablet, Refills 5, Tot. Refills 5, Maintenance, 07/04/19 15:04:15 EDT, Route to Pharmacy Electronically, [id number], [facility] Start Date: 07/04/19 [...] 04/05/20 15:47:00 EDT, Route to Pharmacy Electronically, [facility], 187.96, cm, 07/11/19 13:54:00 EST, [...] 09/20/19 10:26:00 EST, Route to Pharmacy Electronically, [facility], 187.96, cm, 07/11/19 13:54:00 EST, [...]
--- OUTSIDE RECORDS SUMMARY | 2024-05-12 23:12 | XMS_ITS | Continuity of Care Document ---
Author Organization [facility] Address [address] [place] [address]- Care Team Providers Care Retail Training Manager Name Role Phone Razia WILSON, Felix Denis Primary Care Physician Encounter [facility] Date(s): 01/16/22 - 02/15/22 [facility] [address] [place] [address] Allergies, Adverse Reactions, Alerts Substance [...]
--- OUTSIDE RECORDS SUMMARY | 2024-05-12 23:12 | XMS_ITS | Continuity of Care Document ---
Author Organization [facility] ter Address [address] [place] [address]- Care Team Providers Care Stagecraft Teacher Name Role Phone Felix Randle MD Primary Care Physician [place] [facility] [place] 08/23/19 - 08/23/[address] [address]- [facility] Attending Physician: Felix Randle MD [...] 01/06/19 14:03:00 EDT, Route to Pharmacy Electronically, [id number], [facility] Start Date: [...] 12/16/18 17:08:59 EDT, Route to Pharmacy Electronically, [id number], [facility]... Start Date: 12/16/18 Stop Date: 01/15/19 Status: Ordered lisinopril 2.5 mg oral tablet 2.5 mg, 1, tablet, By Mouth, Daily, # 30 tablet, Refills 5, Tot. Refills 5, Maintenance, 07/04/19 15:04:15 EDT, Route to Pharmacy Electronically, [id number], [facility] Start Date: 07/04/19 [...] 05/03/19 13:54:44 EDT, Route to Pharmacy Electronically, [id number], [facility] Start Date: 05/03/19 Stop Date: [...] 09/19/19 14:07:17 EST, Route to Pharmacy Electronically, [id number], [facility] Start Date: 09/19/19 Status: Ordered spironolactone 25 mg oral tablet 25 mg, 1, tablet, By Mouth, Daily, for 90 days, # 90 tablet, Refills 1, Tot. Refills 1, Hard Stop 09/19/19 14:07:17 EST, 03/23/19 14:07:17 EDT, Route to Pharmacy Electronically, [id number], [facility] Start Date: [...]
--- OUTSIDE RECORDS SUMMARY | 2024-05-12 23:12 | XMS_ITS | Continuity of Care Document ---
Author Organization [facility] ter Address [address] [place] [address]- Care Team Providers Care Chef Saucier Name Role Phone Razia WILSON, Felix Denis Primary Care Physician Encounter [facility] [place] Date(s): 09/13/19 - 09/13/[address] [address]- [facility] Attending Physician: Lory Leonard MD [...] 01/06/19 14:03:00 EDT, Route to Pharmacy Electronically, [id number], [facility] Start Date: [...] 12/16/18 17:08:59 EDT, Route to Pharmacy Electronically, [id number], [facility]... Start Date: 12/16/18 Stop Date: 01/15/19 Status: Ordered lisinopril 2.5 mg oral tablet 2.5 mg, 1, tablet, By Mouth, Daily, # 30 tablet, Refills 5, Tot. Refills 5, Maintenance, 07/04/19 15:04:15 EDT, Route to Pharmacy Electronically, [id number], [facility] Start Date: 07/04/19 [...] 05/03/19 13:54:44 EDT, Route to Pharmacy Electronically, [id number], [facility] Start Date: 05/03/19 Stop [...] 09/19/19 14:07:17 EST, Route to Pharmacy Electronically, [id number], [facility] Start Date: 09/19/19 Status: Ordered spironolactone 25 mg oral tablet 25 mg, 1, tablet, By Mouth, Daily, for 90 days, # 90 tablet, Refills 1, Tot. Refills 1, Hard Stop 09/19/19 14:07:17 EST, 03/23/19 14:07:17 EDT, Route to Pharmacy Electronically, [id number], [facility] Start Date: [...]
--- OUTSIDE RECORDS SUMMARY | 2024-05-12 23:12 | XMS_ITS | Continuity of Care Document ---
Author Organization [facility] ter Address [address] [place] [address]- Care Team Providers Care Neckties Painter Name Role Phone Razia WILSON, Felix Denis Primary Care Physician [phone] Encounter [facility] [place] Date(s): 10/18/19 - 10/18/[address] [address]- [facility] Attending Physician: Dana Godoy MD Allergies, Adverse [...] 01/06/19 14:03:00 EDT, Route to Pharmacy Electronically, [id number], [facility] Start Date: [...] 12/16/18 17:08:59 EDT, Route to Pharmacy Electronically, [id number], [facility]... Start Date: 12/16/18 Stop Date: 01/15/19 Status: Ordered lisinopril 2.5 mg oral tablet 2.5 mg, 1, tablet, By Mouth, Daily, # 30 tablet, Refills 5, Tot. Refills 5, Maintenance, 07/04/19 15:04:15 EDT, Route to Pharmacy Electronically, [id number], [facility] Start Date: 07/04/19 [...] 05/03/19 13:54:44 EDT, Route to Pharmacy Electronically, [id number], [facility] Start Date: 05/03/19 Stop Date: [...] 09/20/19 10:26:00 EST, Route to Pharmacy Electronically, [facility], 187.96, cm, 07/11/19 13:54:00 EST, [...]
--- OUTSIDE RECORDS SUMMARY | 2024-05-12 23:12 | XMS_ITS | Continuity of Care Document ---
Author Organization [facility] Address [address] [place] [address]- Care Team Providers Care Drill Punch Operator Name Role Phone Felix Randle MD Primary Care Physician [place] [facility] [place] 12/22/23 - 01/30/24 [facility] [address] [place] [address] Attending Physician: Sergio Parra MD Admitting Physician: Sergio Parra MD Referring Physician: Felix Randle MD Allergies, [...] virus vaccine, inactivated 05/27/20 Faraz rded SARS-CoV-2(COVID-19)mRNA-LNP vac(byk462) 07/09/23 Recorded [id number] bivalent booster vax 04/22/23 Recorded [id number] bivalent booster vax 05/27/22 Recorded zoster vaccine, [...] Replace Required Details, Route to Pharmacy Electronically, [facility], 188, cm, 07/22/23 11:30:00 EST, [facility]... Start Date: 07/22/23 Status: Ordered humidifier humidifier, See Instructions, # 1 each, Refills 0, Tot. Refills 0, Maintenance, humidified air mistsystem to be used at night, 11/18/23 15:15:00 EDT, Supply Start Date: 11/18/23 Status: Ordered Jantoven 5 mg oral tablet 1-2 TABLETS, By Mouth, Daily, PER PROTOCOL., # 135 tablet, 3 Refills, Maintenance, 10/12/23 9:09:00EST, [facility], 187.96, cm, 09/25/23 8:15:00 EST, [...] 3 Refills, Maintenance, 09/11/23 12:06:00 EST, Capsule, [facility], Partial fill upon patient [...] Personnel Name: Erich RAHAT Chela Tracee Position: [facility] MA Member Role: Lifetime Consulting Physician Name: Aleks Rodriguez RN Position: [facility] Rad RN Member Role: Primary Care Nurse Name: Zuleyma Gonzales RN Position: [facility] RN Member Role: Primary Care Nurse Name: Osiris Croft PharmD Position: [facility] Associate Professional Member Role: Lifetime Consulting Provider Address: Address: [address] [place] [address] [place] [address]- Name: Lizabeth Montaño RN Position: [facility] [...] Primary Care Member Role: PCP Address: Address: [address] [place] [address]- Care Team Related Persons Name: LEONARD MCCOLLUM Address: home [address] [place] [address] Name: CLAUDIA LAI Address: home [place]KNOWN [address] Name: HEBER DUKES
--- OUTSIDE RECORDS SUMMARY | 2024-05-12 23:12 | XMS_ITS | Continuity of Care Document ---
Author Organization [employer] ter Address [address] [place] [id number] Care Team Providers Care Hse Manager Name Role Phone Felix Randle MD Primary Care Physician [phone] Encounter [facility] Date(s): 03/04/20 - 04/13/[address] [address]- [facility] Attending Physician: Adelso Garay MD Admitting Physician: [...] 01/06/19 14:03:00 EDT, Route to Pharmacy Electronically, [id number], [facility] Start Date: [...] 12/16/18 17:08:59 EDT, Route to Pharmacy Electronically, [id number], [facility]... Start Date: 12/16/18 Stop Date: 01/15/19 Status: Ordered lisinopril 2.5 mg oral tablet 2.5 mg, 1, tablet, By Mouth, Daily, # 30 tablet, Refills 5, Tot. Refills 5, Maintenance, 07/04/19 15:04:15 EDT, Route to Pharmacy Electronically, [id number], [facility] Start Date: 07/04/19 Stop [...] 04/05/20 15:47:00 EDT, Route to Pharmacy Electronically, [facility], 187.96, cm, 07/11/19 13:54:00 EST, Height, 90, kg, 12/13/18 13:58:00 EDT, [facility]... Start Date: 04/05/20 Stop Date: 10/02/20 Status: Ordered Prevacid 30 mg oral enteric [...] 09/20/19 10:26:00 EST, Route to Pharmacy Electronically, [facility], 187.96, cm, 07/11/19 13:54:00 EST, [...]
[2024-05-12 23:21] VITALS: BP 125/51; PULSE 75; RESP 20; TEMP 36.1; O2SAT 92
[2024-05-12 23:28] LABS: MANUAL DIFF FLAG NO
[2024-05-12 23:31] LABS: Basophils Percent Auto 0.6 % (0-2); Eosinophils Absolute Auto 0.1 X10*3/uL (0.0-0.4); Eosinophils Percent Auto 2.7 % (0-4); Hematocrit 28.7 % (42.0-52.0); Hemoglobin 9.6 g/dl (14.0-18.0); Imm Gran Abs Auto 0.03 X10*3/uL (0.00-0.03); Imm Gran Pct Auto 0.6 % (0.0-0.4); Lymphocytes Absolute Auto 0.7 X10*3/uL (1.2-4.9); Lymphocytes Percent Auto 13.1 % (20-40); Mean Corpuscular HGB Conc 33.4 g/dl (31.0-36.0); Mean Corpuscular Hemoglobin 31.6 pg (27.0-33.0); Mean Corpuscular Volume 94.4 fL (80.0-98.0); Monocytes Absolute Auto 0.7 X10*3/uL (0.1-1.2); Monocytes Percent Auto 13.1 % (2-11); Neutrophils Absolute Auto 3.6 x10*3/uL (2.0-8.3); Neutrophils Percent Auto 69.9 % (45-73); Platelet Count 107 X10*3/uL (160-400); Red Blood Count 3.04 X10*6/uL (4.60-5.80); Red Cell Distribution Width 15.3 % (11.0-16.0); White Blood Count 5.1 X10*3/uL (4.8-10.8)
[2024-05-12 23:35] LABS: INTERNATIONAL NORM RATIO 2.9 (0.9-1.1); Prothrombin Time 35.1 SEC (11.1-13.3)
[2024-05-12] MEDS: Tranexamic Acid 1,000 MG/10 ML VIAL 500 MG INHALE (23:35)
[2024-05-12 23:47] LABS: Alanine Aminotransferase 16 U/L (0-40); Albumin Level 3.9 g/dL (3.5-5.0); Alkaline Phosphatase 80 U/L (39-117); Anion Gap 13 (12-20); Aspartate Amino Transferase 36 U/L (5-37); Blood Urea Nitrogen 12 mg/dL (9-16); Carbon Dioxide 27 mmol/L (22-29); Chloride 99 mmol/L (96-108); Creatinine Clr Calc Pharmacy 54.5; Estimated Glomerular Filt Rate 59; Glucose Random 95 mg/dL (60-115); Potassium 3.4 mmol/L (3.3-5.1); Sodium 136 mmol/L (135-145); Total Protein 6.2 g/dL (6.5-8.0)
[2024-05-13] MEDS: Hum Prothrombin Cplx(PCC)4Fact 2,000 UNIT in Container,Empty 0 ML 480 UNIT IV (00:55)
[2024-05-13] MEDS: Phytonadione (Vit K1) 10 MG in 0.9 % Sodium Chloride 50 ML 51 MG IV (01:57)
[2024-05-13 06:01] VITALS: BP 118/56; PULSE 68; RESP 18; TEMP 36.1; O2SAT 93
[2024-05-13 06:41] LABS: Hematocrit 27.6 % (42.0-52.0); Mean Corpuscular HGB Conc 32.6 g/dl (31.0-36.0); Mean Corpuscular Volume 95.2 fL (80.0-98.0); Mean Platelet Volume 9.6 fL (9.4-12.4); Red Cell Distribution Width 15.4 % (11.0-16.0); White Blood Count 4.4 X10*3/uL (4.8-10.8)
[2024-05-13 06:47] LABS: Platelet Count 89 X10*3/uL (160-400)
[2024-05-13 06:52] LABS: INTERNATIONAL NORM RATIO 1.9 (0.9-1.1); Prothrombin Time 23.1 SEC (11.1-13.3)
[2024-05-13 08:00] VITALS: BP 99/60; PULSE 69; RESP 18; TEMP 36.5; O2SAT 94
--- NOTE | 2024-05-13 08:00 | PC.NURSE ---
patient resting quietly in ED stretcher, patient alert and oriented x4, uses electronic trach device to talk. patient has no current complaints. VSS, respirations equal and unlabored, no bleeding noted from trach site.
[2024-05-13 09:25] VITALS: BP 99/60; PULSE 69; RESP 18; TEMP 36.5; O2SAT 94
--- NOTE | 2024-05-13 09:25 | PC.NURSE ---
report given to kendra at [place] [id number]
== END 2024-05-13 09:25 | disposition short-term general hospital (02) ==
PROVIDERS: Emergency Provider Emergency Medicine
DX: R04.2 Hemoptysis (principal); J95.01 Hemorrhage from tracheostomy stoma; I48.20 Chronic atrial fibrillation, unspecified; Z85.21 Personal history of malignant neoplasm of larynx; Z95.0 Presence of cardiac pacemaker; Z79.01 Long term (current) use of anticoagulants; Z79.02 Long term (current) use of antithrombotics/antiplatelets; Z79.899 Other long term (current) drug therapy
CPT/HCPCS: 36415; 71046; 80053; 85025; 85027; 85610; 86850; 86900; 86901; 93005; 96365; 99285; J3430; J7168

== ENCOUNTER 2024-05-23 22:11 | Emergency (ER) | payer MEDICARE, SELFPAY ==
--- NOTE | ~2024-05-23 | XR_ITS ---
EXAMINATION: XR CHEST CLINICAL INFORMATION: Hemoptysis. COMPARISON: May 12, 2024. TECHNIQUE: 2 views of the chest were obtained. FINDINGS: The cardiac silhouette is again seen to be significantly enlarged but stable. There is blunting of the right costophrenic angle. Lungs are otherwise clear. Pacer leads in place. Bony structures and soft tissues are unremarkable. XR/XR chest 2V IMPRESSION: Stable cardiomegaly. Blunting of the right costophrenic angle. Small pleural effusion considered. Electronically signed by: Dougie Berger MD 05/24/2024 01:01 AM EDT
[2024-05-23 22:12] VITALS: BP 139/55; PULSE 77; RESP 20; TEMP 37; O2SAT 95; BMI 26.6
[2024-05-23 22:27] VITALS: BP 118/53; PULSE 65; RESP 15; TEMP 37.1; O2SAT 94
[2024-05-23 23:31] VITALS: BP 100/46; PULSE 59; RESP 26; TEMP 36.7; O2SAT 92
--- NOTE | 2024-05-24 00:04 | PC.NURSE ---
Upon arrival to ED there was minimal bleeding from the laryngeal site. It is bright red in nature, no clots noted at this time. WIll continue to monitor. Stated that bleeding started at home around 11am and that this happened a couple of weeks ago as well and had a bronchoscopy at [facility] but no bleeding was noted during the bronch. Patient stated that he had an INR drawn this morning and it was 1.5
--- NOTE | 2024-05-24 00:10 | PC.NURSE ---
Patient sitting on side of bed alert and oriented. Given fluids to drink per patient request. Still coughing and when coughing scant amounts of blood are still present.
--- OUTSIDE RECORDS SUMMARY | 2024-05-24 00:15 | XMS_ITS | Continuity of Care Document ---
Author Organization [facility] ter Address [address] [place] [id number]- Care Team Providers Care Commercial Correspondent Name Role Phone Razia WILSON, Felix Denis Primary Care Physician Encounter [facility] Date(s): 05/13/24 - 05/14/[address] [address] Discharge Disposition: A-D/C Home Attending Physician: Cheyenne Nelson DO Admitting Physician: Clara WILSON, Abhi Referring Physician: Not on Staff, Referring MD [...] virus vaccine, inactivated 05/27/20 Faraz rded SARS-CoV-2(COVID-19)mRNA-LNP vac([id number]) 07/09/23 Recorded [id number] bivalent booster vax 04/22/23 Recorded [id number] bivalent booster vax 05/27/22 Recorded zoster vaccine, [...] 04/11/24 9:46:00 EDT, Route to Pharmacy Electronically, [id number], 187.96, cm, 03/31/24 9:06:00 EDT, Height, 84.8, kg, 08/14/23 6:33:00 EST, Dry Weight Start Date: 04/11/24 Status: Ordered Jantoven 5 mg oral tablet 1-2 TABLETS, By Mouth, Daily, PER PROTOCOL., # 135 tablet, 3 Refills, Maintenance, 10/12/23 9:09:00EST, [id number], 187.96, cm, 09/25/23 8:15:00 EST, Height, 84.8, kg, 08/14/23 6:33:00 EST, Dry Weight Start Date: 10/12/23 Status: Ordered Jardiance 10 mg oral tablet [...] WEEK DIRECTED Start Date: 03/24/24 Status: Ordered omeprazole 20 mg oral enteric coated capsule 1 capsule, By Mouth, Daily, # 90 capsule, 1 Refills, Maintenance, 03/06/24 11:20:00 EDT, [id number], 187.96, cm, 03/01/24 13:39:00 EDT, [...] Refills, Maintenance, 08/25/23 13:12:00 EST, [id number], Partial fill upon patient request [...] opioid drug. Start Date: 06/06/21 Status: Ordered terazosin 5 mg oral capsule 10 mg, Capsule, By Mouth, 05/13/24 21:00:00 EDT Start Date: 05/13/24 Stop Date: 05/13/24 Status: Completed torsemide 20 mg oral tablet 3 tablet = 60 mg, By Mouth, Daily, # 60 tablet, [...] 3 Refills, Maintenance, 09/11/23 12:06:00 EST, Capsule, [facility], Partial fill upon patient [...] meeting GFR criteria 2Per cardiology note 03/24/2024. Vital Signs Most recent to oldest [Reference Range]: 1 2 3 Height 188 cm (05/14/24 3:54 AM) 188 cm (05/13/24 8:29 PM) 188 cm (05/13/24 3:21 PM) Oxygen Saturation [94-100 %] 100 % (05/14/24 8:00 AM) 91 % *L* (05/14/24 3:54 AM) 92 % *L* (05/13/24 8:29 PM) Pulse Rate [55-90 bpm] 62 bpm (05/14/24 8:00 AM) 91 bpm *H* (05/14/24 3:54 AM) 61 bpm (05/13/24 8:29 PM) Blood Pressure [90-138/55-84 mm Hg] 133/67mm Hg (05/14/24 8:00 AM) 112/57mm Hg (05/14/24 3:54 AM) 112/68mm Hg (05/13/24 9:49 PM) Respiratory Rate [16-30 br/min] 18 br/min (05/14/24 8:00 AM) 18 br/min (05/14/24 3:54 AM) 18 br/min (05/13/24 8:29 PM) Temperature [96.8-100.4 DegF] 98.4 DegF (05/14/24 8:00 AM) 98.1 DegF (05/14/24 3:54 AM) 98.2 DegF (05/13/24 8:29 PM) Mode of Delivery (Oxygen) Room air (05/14/24 8:00 AM) Room air (05/14/24 3:54 AM) Room air (05/13/24 8:29 PM) Blood pressure sites Arm, left (05/14/24 8:00 AM) Arm, left (05/14/24 3:54 AM) Arm, left (05/13/24 8:29 PM) Temperature Route Oral (05/14/24 8:00 AM) Oral (05/14/24 3:54 AM) Oral (05/13/24 8:29 PM) Dry Weight 85 kg (05/13/24 3:21 PM) Social History Social History Type Response Smoking Status Former smoker, quit more than 30 days ago entered on: 12/24/23 Sex Note * Vinita Dailey RN: PERFORM Event Display: Discharge/Transfer Note Hospital Authored Date: [id number] Nursing Discharge Note Entered On: 05/14/2024 11:16 EDT Performed On: 05/14/2024 11:15 EDT by Vinita Dailey RN Nursing Discharge Note 2 Discharge Time : 05/14/2024 11:15 EDT Discharge Level of Care at Discharge : Home/Usp/Foster Care Patient Left Unit Via : Other: lyft Patient Accompanied Off Unit with : Other: self DC Instructions Provided & Signed by Pt : Yes Patient Understands D/C Instructions : Yes Patient Instructions Discharge Signed : Yes Did Pt have Specialty Bed or Wound Vac : No Asim MERCADO, Vinita - 05/14/2024 11:15 EDT * Helena Dunn MD: PERFORM, MODIFY Event Display: Discharge/Transfer Note Hospital Authored Date: [id number] Patient: ??REGAN DUKES ? Age:??74 Years?Sex:??Male?:??1950?? Patient Information Discharge Location: 4 Primary Care Physician: Felix Randle MD Admit Date/Time: 05/13/24 09:53 Discharge Disposition Discharge Disposition: Home: No Services Discharge Diagnosis Hemoptysis (R04.2) Afib (I48.91) _ Discharge Medications Ascorbic Acid (Vitamin C 500 mg oral tablet)?1?tab(s)?500?Milligram?By Mouth?Daily in AM Calcium Carbonate (calcium carbonate 600 mg oral tablet)?1?tab(s)?600?Milligram?By Mouth?Daily in AM Docusate?100?Milligram?By Mouth?2 times a day empagliflozin (Jardiance 10 mg oral tablet)?TAKE ONE TABLET BY MOUTH EVERY DAY Ferrous Sulfate (ferrous sulfate 325 mg oral enteric coated tablet)?1?tablet?By Mouth?2times a day Magnesium Oxide (magnesium oxide 250 mg oral tablet)?1?tab(s)?250?Milligram?By Mouth?Daily at bedtime Metolazone (metolazone 2.5 mg oral tablet)?TAKE 1 TABLET TWICE A WEEK DIRECTED Omeprazole (omeprazole 20 mg oral enteric coated capsule)?1?capsule?By Mouth?Daily Simvastatin (simvastatin 20 mg oral tablet)?20?Milligram?1?tablet?By Mouth?Daily at bedtime Sodium Chloride (sodium chloride 0.9% inhalation solution)?See Instructions?Use at least 3 times daily for tracheostoma humidification. Spironolactone (spironolactone 25 mg oral tablet)?25?Milligram?1?tablet?By Mouth?Daily?for 90?Days tafamidis (Vyndamax 61 mg oral capsule)?1?capsule?61?Milligram?By Mouth?Daily in AM?for 90?Days?swallow whole Terazosin (terazosin 10 mg oral capsule)?10?Milligram?1?capsule?By Mouth?Daily atbedtime Thiamine (Vitamin B1)?Daily torsemide (torsemide 20 mg oral tablet)?3?tab(s)?60?Milligram?By Mouth?Daily Warfarin (Jantoven 5 mg oral tablet)?1-2 TABLETS?By Mouth?Daily?PER PROTOCOL. ? Medications Started No new medications started. Medications Discontinued No medications discontinued. Doses Changed No medication doses changed. PCP Follow-Up/Heads-Up Please repeat CBC, CMP, and PT/INR within 1 week. Future Appointments Thursday 2:00 PM EDT ?? With: Razia WILSON, Felix Denis Where: Primary Care [address] [address]- Status: Pending Thursday 7:40 AM EDT ?? 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 He has had multiple episodes of hemoptysis after his laryngectomy and follows outpatient pulmonology who have scoped him numerous times but no lesions havebeen identified. He was scheduled for an outpatient bronchoscopy on Thursday (05/16) and [facility] if symptoms worsened.??Prior to presentation, he was soaking through several tissues with hemoptysis so he decided to self-present to the ED. ?? In the ED,??he was??afebrile and hemodynamically stable. Labs were significant for Hgb 9.8 (last Hgb 10.4 from 07/2023), and initial PT/INR was 35.1/3.7.??He was given inhaled tranexamic acid, vitamin K, and kcentra. His PT/INR following warfarin reversal was 17.5/1.7. He underwent urgent bronchoscopy which did not identify any signs of active bleeding or masses. His hemoptysis improved overnightand throughout his stay, he remained hemodynamically stable. Considering he is undergoing active titration of his warfarin and INR was 1.7 on discharge, although he was above goal at 3.7 on admission, pt was encouraged to restart home regimen and f/u with warfarin clinic in 2 days (05/16), for which he already has an appt. On day of discharge, pt was hemodynamically stable and ready for discharge without services. 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 Pt presented with worsening hemoptysis than usual, soaking through several tissues at home, and although he was supposed to have bronch outpatienton 05/16, pulm recommended he present to ED. Labs were significant for Hgb 9.8 (last Hgb 10.4 from 07/2023), and initial PT/INR was 35.1/3.7.??He was given inhaled tranexamic acid, vitamin K, and kcentra. He underwent urgent bronchoscopy which did not identify any signs of active bleeding or masses. Unclear cause of his bleeding at this time, but likely multifactorial iso supratherapeutic INR (see below) and non-adherence to??below meds with chronic cough.??Hgb remained stable throughout admission. ?? Recommendations: - Follow up with outpatient pulmonology - Continue saline nebulizers and humidified air mist system at home ?? Afib (I48.91) without RVR, stable Pt HR remained stable without RVR during admission. Initially INR was supratherapeutic at 3.7. Per pt, he was originally prescribed warfarin 5mg daily for his AF.??Warfarin clinic recently switched??his dose to??5mg/2.5mg on alternating days due to supratherapeutic INR 1 week ago. On discharge, discussed risks and benefits of continued warfarin use iso frequent bleeds, and pt elected to keep taking. He will resume his warfarin as prescribed with alternating 5mg/2.5mg considering INR subtherapeutic on d/c (1.7), and will??follow up with his outpatient warfarin clinic in 2 days on 05/16 for an INR check. ?? Recommendations: - Resume warfarin dosing until f/u with INR clinic: 5mg on 05/14, 2.5mg on 05/15, f/u with warfarin clinic on 05/16 for further recs - Continue digoxin 0.25mg Thursday/Thursday/Thursday - F/u with cardiology as recommended by outpatient team ?? HFpEF, chronic Amyloid Cardiomyopathy, chronic CAD, chronic Previously diagnosed cardiomyopathy, suspected to be infiltrative amyloid. No evidence of HF exacerbation while admitted. ?? Plan: - Continue home empagliflozin 10mg PO QD, metolazone 2.5mg PO once weekly on , spironolactone 25mg PO QD, Tafamidis 61mg PO QD, torsemide 60mg PO QD, simvastatin 20mg PO QD - F/u with cardiology as recommended by outpatient team ?? GERD: Continue home omeprazole 20mg PO QD ?? BPH: Continue home terazosin 10mg PO QHS . Physical Exam Constitutional: Alert, in no distress. Sitting on the edge of the bed comfortably. Mental Status: Oriented to person, place and time. Neck: Supple, tracheostomy present with no??blood??noted. Respiratory: Clear to auscultation. No wheezing, rales or rhonchi. Cardiovascular: S1 S2 regular. No murmurs, rubs or gallops. Gastrointestinal: Abdomen soft, non-tender, non-distended. Normal bowel sounds. Psychiatric: Normal mood and affect Surgical Procedures Bronchoscopy Diagnostic 05/13/2024 16:51 Consultants Pulmonology - Tha WILSON, Lety Pending Results INR ordered on 05/14/2024 Patient Education Titles WebMD Ignite Patient Education - Warfarin?? WebMD Ignite Patient Education - Hemoptysis?? Follow-Up Appointments Added Follow Up ?Time Frame ?Comments Razia WILSON, Felix Denis?Within one week Patient Instructions DIAGNOSIS/TREATMENT ?? BLOODY COUGH - You came to the hospital??with worsening??bloody cough.?? While you are here, you had a bronchoscopy??to make sure there is nothing the groover and turner could do to stop the bleeding.?? Your bronchoscopy did not show any areas of active bleeding that needed??immediate intervention.?? Itis likely that your bleeding??because??your INR??was high,??and you will need close follow-up with your warfarin clinic??to discuss a plan??to prevent further episodes of bleeding.?? You??will also need close follow-up??with pulmonology.?Please continue to take your??inhaled??normal saline, which may??prevent bleeding episodes like this in the future. ?? MEDICATIONS - Resume taking warfarin 5mg/2.5mg on alternating days; take 5mg warfarin today (05/14), take 2.5mg of warfarin tomorrow (05/15), and take 5mg of warfarin on Thursday (05/16). ?? FOLLOW UP - Follow up with your groover and turner within 3-5 days - Follow up with your warfarin clinic on 05/16/2024 to repeat INR - Follow-up with your PCP clinic??within 1 week of discharge ?? PLEASE SEEK URGENT CARE IF YOU EXPERIENCE ANY OF THE FOLLOWING: start coughing up blood, or notice bleeding from your mouth or tracheostomy,??lightheadedness, dizziness, generalized weakness, bleeding, easy bruising, chest pain, palpitations, cough, or shortness of breath,??or any other concerning symptoms. ?? Thank you for allowing us to take part in your care! Results Discharge Labs BLOOD COUNT & DIFF WBC 4.5 k/mm3 ()?? 05/14/2024 08:04 RBC 3.17 m/mm3 (Low)?? 05/14/2024 08:04 Hgb 9.8 Gm/dL (Low)?? 05/14/2024 08:04 Hct 30.6 % (Low)?? 05/14/2024 08:04 MCV 96.5 femtoliters (High)?? 05/14/2024 08:04 MCH 30.9 pg ()?? 05/14/2024 08:04 MCHC 32.0 g/dL (Low)?? 05/14/2024 08:04 Platelet Count 106 k/mm3 (Low)?? 05/14/2024 08:04 RDW-SD 54.4 femtoliters (High)?? 05/14/2024 08:04 MPV 10.4 femtoliters ()?? 05/14/2024 08:04 Nucleated RBC (Automated) 0.0 #/100 WBC'S ()?? 05/14/2024 08:04 Abs. NRBC 0.0 k/mm3 ()?? 05/14/2024 08:04 Abs. Neut 3.4 k/mm3 ()?? 05/13/2024 11:21 Abs. Lymph 0.5 k/mm3 (Low)?? 05/13/2024 11:[address] [facility] 0.5 k/mm3 ()?? 05/13/2024 11:21 Abs. Eo 0.1 k/mm3 ()?? 05/13/2024 11:21 Abs. Baso 0.0 k/mm3 ()?? 05/13/2024 11:21 Neut % 74.3 % ()?? 05/13/2024 11:21 Lymph % 11.0 % (Low)?? 05/13/2024 11:21 [facility] % 11.0 % (High)?? 05/13/2024 11:21 Eos % 2.6 % ()?? 05/13/2024 11:21 Baso % 0.7 % ()?? 05/13/2024 11:21 RBC Morphology FEW ()?? 05/13/2024 11:21 Platelet Estimate DECREASED ()?? 05/13/2024 11:21 Imm Gran 0.4 % ()?? 05/13/2024 11:21 Abs. Imm Gran 0.0 k/mm3 ()?? 05/13/2024 11:21 ?? CHEM GENERAL Sodium 136 mmol/L ()?? 05/14/2024 08:04 Potassium 3.8 mmol/L ()?? 05/14/2024 08:04 Chloride 100 mmol/L ()?? 05/14/2024 08:04 Bicarbonate Level 25 mmol/L ()?? 05/14/2024 08:04 Anion Gap 11 ()?? 05/14/2024 08:04 Glucose Level 92 mg/dL ()?? 05/14/2024 08:04 BUN 11 mg/dL ()?? 05/14/2024 08:04 Creatinine-Blood 1.02 mg/dL ()?? 05/14/2024 08:04 Estimated GFR Creatinine 76 ML/MIN/1.73 M2 ()?? 05/14/2024 08:04 Calcium 9.0 mg/dL ()?? 05/14/2024 08:04 Magnesium 2.4 mg/dL (High)?? 05/14/2024 08:04 ? COAG INR 1.7 (High)?? 05/13/2024 11:21 Protime (PT) 17.5 seconds (High)?? 05/13/2024 11:21 ?? URINE OTHER Est Creatinine Clearance 71.67 mL/min ()?? 05/13/2024 15:24 ? Blood Glucose Trend Glucose Level: 92 mg/dL (05/14/24 08:04:00) ? 35??minutes spent on discharge ?? Patient discussed with attending, Dr. Nelson. ?? Helena Dunn MD Internal Medicine-Pediatrics PGY2 Pager #[phone] * Cheeynne Nelson DO: PERFORM Event Display: Discharge/Transfer Note Hospital Authored Date: ?? Attending Attestation:??I have seen and evaluated this patient. ??I have discussed the case and itsmanagement with the resident and agree with the findings and plan as documented in the resident???snote. ? * Event Display: Discharge/Transfer Note Hospital Authored Date: * Vinita Dailey RN: PERFORM Event Display: Patient Education/Instruction Authored Date: Inpatient Adult Discharge Instructions. [address] [address] Name: REGAN DUKES : 1950?? Visit: 05/13/2024 09:53?? Current Date: 05/14/2024 10:46 ?? Account: [id number]?? Inpatient Adult Discharge Instructions We would like [...] and their families. Surveys are administered by [employer] ?? If further treatment with your primary care physician or another doctor is recommended, it is important for you to keep the appointment. Call your primary care physician or return to the Emergency Department immediately if your condition worsens, fails to improve, or new symptoms develop. If you need to find a doctor, you can call [facility] for a referral at [phone] or toll free at [phone]) or log in to [email or web address].. ?? [facility], in keeping with [facility] guidance, no longer requires face masks [...] a health care mike of your choosing. [employer] is a website that allows you to securely view your medical information including your hospital discharge summary, office visit summaries, medications and follow-up visits. You can also request appointments, renew medications, and request access to your medical information using a health care mike of your choosing, or just ask a question. You can enroll at [email or web address] or register during your next office visit. You have been discharged from [facility], Patient Care Unit: W4??. If you have any questions regarding these instructions, including results of studies pending, afteryou leave, please call us and we will be happy to assist you 30/03. [facility] Your Care Team Attending Physician Cheyenen Nelson DO?? Consulting Providers Cheyenne Nelson DO?? Discharging Providers Helena Dunn MD Your Diagnosis Afib Hemoptysis Tests Performed Below is a partial list of the tests performed during your hospitalization. You may have had other tests and procedures not included in this list. Please discuss all test results with your provider. Basic Metabolic Panel BUN CBC CBC w/ Differential Creatinine Lytes Magnesium Level PT (INR) BUN?? Basic Metabolic Panel?? CBC?? CBC w/ Differential?? Creatinine?? Electrolytes (Lytes)?? INR?? Magnesium Level?? Primary Care Provider Felix Randle MD? Advance Directive Health Care Proxy on File Yes - Health Care Proxy Yes - MOLST Discharge Vitals Temperature: 98.4 DegF Height: 188 cm Pulse Rate: 62 bpm ?? Respiratory Rate: 18 br/min ?? Systolic Blood Pressure: 133 mm Hg ?? Diastolic Blood Pressure: 67 mm Hg ?? Oxygen Saturation: 100 % ?? Studies Pending All studies ordered during this hospital stay have been completed unless listed below. Please discuss all pending results with your provider listed above in these instructions. ?? INR?? What to do next Instructions From Your Doctor DIAGNOSIS/TREATMENT ?? BLOODY COUGH - You came to the hospital??with worsening??bloody cough.?? While you are here, you had a bronchoscopy??to make sure there is nothing the groover and turner could do to stop the bleeding.?? Your bronchoscopy did not show any areas of active bleeding that needed??immediate intervention.?? Itis likely that your bleeding??because??your INR??was high,??and you will need close follow-up with your warfarin clinic??to discuss a plan??to prevent further episodes of bleeding.?? You??will also need close follow-up??with pulmonology.?Please continue to take your??inhaled??normal saline, which may??prevent bleeding episodes like this in the future. ?? MEDICATIONS - Resume taking warfarin 5mg/2.5mg on alternating days; take 5mg warfarin today (05/14), take 2.5mg of warfarin tomorrow (05/15), and take 5mg of warfarin on Thursday (05/16). ?? FOLLOW UP - Follow up with your groover and turner within 3-5 days - Follow up with your warfarin clinic on 05/16/2024 to repeat INR - Follow-up with your PCP clinic??within 1 week of discharge ?? PLEASE SEEK URGENT CARE IF YOU EXPERIENCE ANY OF THE FOLLOWING: start coughing up blood, or notice bleeding from your mouth or tracheostomy,??lightheadedness, dizziness, generalized weakness, bleeding, easy bruising, chest pain, palpitations, cough, or shortness of breath,??or any other concerning symptoms. ?? Thank you for allowing us to take part in your care! ?? Orders? 05/14/24 10:44:00 EDT?? Scheduled Follow-Up Appointments Thursday 2:00 PM EDT ?? With: Felix Randle MD Where: Primary Care [address] [address]- Status: Pending Thursday 7:40 AM EDT ?? Where: [facility] [address] [place] [address]- Status: Pending You Need to Schedule the Following Appointments Follow Up with??Felix Randle MD When:??Within Within one week Where: ?? Discharge Medications REGAN DUKES :1950 Visit Date:05/13/2024 Medications: Please continue your medications until treatment is completed or stopped by your provider. Medications not listed below should be discontinued. Discuss any questions related to medications with your provider. What How Much When Instructions Next Dose Changed Warfarin (Jantoven 5 mg oral tablet) 1-2 TABLETS Oral Daily PER PROTOCOL. ?? 05/14/2024 at 5:00 p.m. Unchanged Ascorbic Acid (Vitamin C 500 mg oral tablet) 1 tab(s) Oral Daily in the morning 05/15/2024 at 9:00 a.m. Unchanged Calcium Carbonate (calcium carbonate 600 mg oral tablet) 1 tab(s) Oral Daily in the morning 05/15/2024 at 9:00 a.m. Unchanged Docusate 100 Milligram Oral Twice a day 05/14/2024 at 9:00 p.m. Unchanged empagliflozin (Jardiance 10 mg oral tablet) TAKE ONE TABLET BY MOUTH EVERY DAY ?? 05/15/2024 at 9:00 a.m. Unchanged Ferrous Sulfate (ferrous sulfate 325 mg oral enteric coated tablet) 1 tab(s) Oral Twice a day 05/14/2024 at 9:00 p.m. Unchanged Magnesium Oxide (magnesium oxide 250 mg oral tablet) 1 tab(s) Oral Daily at Bedtime 05/14/2024 at 9:00 p.m. Unchanged Metolazone (metolazone 2.5 mg oral tablet) TAKE 1 TABLET TWICE A WEEK DIRECTED ?? previous schedule Unchanged Omeprazole (omeprazole 20 mg oral enteric coated capsule) 1 capsule Oral Daily 05/15/2024 at 9:00 a.m. Unchanged Simvastatin (simvastatin 20 mg oral tablet) 1 tab(s) Oral Daily at Bedtime 05/14/2024 at 9:00 p.m. Unchanged Sodium Chloride (sodium chloride 0.9% inhalation solution) See instructions Use at least 3 times daily for tracheostoma humidification. ?? previous schedule Unchanged Spironolactone (spironolactone 25 mg oral tablet) 1 tab(s) Oral Daily Duration: 90 Days 05/15/2024 at 9:00 a.m. Unchanged tafamidis (Vyndamax 61 mg oral capsule) 1 capsule Oral Daily in the morning Duration: 90 Days swallow whole ?? 05/15/2024 at 9:00 a.m. Unchanged Terazosin (terazosin 10 mg oral capsule) 1 capsule Oral Daily at Bedtime 05/14/2024 at 9:00 p.m. Unchanged Thiamine (Vitamin B1) Daily 05/15/2024 at 9:00 a.m. Unchanged torsemide (torsemide 20 mg oral tablet) 3 tab(s) Oral Daily 05/15/2024 at 9:00 a.m. ?? What How Much When Comments Stop Taking Durable Medical Equipment (humidifier) See instructions humidified air mist system to be used at night ?? Stop Taking Durable Medical Equipment (Nebulizer/ Compressor) See instructions Permanent end tracheostomy with tracheitis. ?? Prescription Given During Visit No new medications prescribed at time of discharge.?? Laboratory Results Below is a partial list of the most recent Laboratory test results done prior to this discharge. You may have had other tests and procedures not included in this list. Please discuss all test resultswith your provider. Est Creatinine Clearance - 71.67 mL/min (05/13/2024) Basic Metabolic Panel (05/14/2024) ???Sodium - 136 mmol/L???Potassium - 3.8 mmol/L???Chloride - 100 mmol/L???Bicarbonate Level - 25 mmol/L???Anion Gap - 11???Glucose Level - 92 mg/dL???BUN - 11 mg/dL???Creatinine-Blood - 1.02 mg/dL???Estimated GFR Creatinine - 76 ML/MIN/1.73 M2???Calcium - 9.0 mg/dL BUN (05/13/2024) ???BUN - 11 mg/dL CBC (05/14/2024) ???WBC - 4.5 k/mm3???RBC - 3.17 m/mm3???Hgb - 9.8 Gm/dL???Hct - 30.6 %???MCV - 96.5 femtoliters???MCH - 30.9 pg???MCHC - 32.0 g/dL???Platelet Count - 106 k/mm3???RDW-SD - 54.4 femtoliters???MPV - 10.4 femtoliters???Nucleated RBC (Automated) - 0.0 #/100 WBC'S???Abs. NRBC - 0.0 k/mm3 CBC w/ Differential (05/13/2024) ???WBC - 4.5 k/mm3???RBC - 3.19 m/mm3???Hgb - 9.8 Gm/dL???Hct - 30.7 %???MCV - 96.2 femtoliters???MCH - 30.7 pg???MCHC - 31.9 g/dL???Platelet Count - 94 k/mm3???RDW-SD - 54.4 femtoliters???MPV - 9.8 femtoliters???Nucleated RBC (Automated) - 0.0 #/100 WBC'S???Abs. NRBC - 0.0 k/mm3???Abs. Neut - 3.4 k /mm3???Abs. Lymph - 0.5 k/mm3???Abs. [facility] - 0.5 k/mm3???Abs. Eo - 0.1 k/mm3???Abs. Baso - 0.0 k/mm3???Neut % - 74.3 %???Lymph % - 11.0 %???[facility] % - 11.0 %???Eos % - 2.6 %???Baso % - 0.7 %???RBC Morphology - FEW???Platelet Estimate - DECREASED???Imm Gran - 0.4 %???Abs. Imm Gran - 0.0 k/mm3 Creatinine (05/13/2024) ???Creatinine-Blood - 1.02 mg/dL???Estimated GFR Creatinine - 76 ML/MIN/1.73 M2 Lytes (05/13/2024) ???Sodium - 134 mmol/L???Potassium - 3.5 mmol/L???Chloride - 97 mmol/L???Bicarbonate Level - 25 mmol/L???Anion Gap - 12 Magnesium Level (05/14/2024) ???Magnesium - 2.4 mg/dL PT (INR) (05/13/2024) ???INR - 1.7???Protime (PT) - 17.5 seconds You will be contacted within 72 hours with your results. Allergies (NKA means No Known Allergies) Venofer??(bleeding, hypotension) Problems Active Problems??(24) ACC/AHA stage D systolic heart failure?? Afib?? Amyloidosis?? Anemia?? CAD (coronary artery disease)?? Cardiomyopathy?? Cervicalgia?? Chronic back pain?? Chronic kidney disease, stage 3a?? Cirrhosis of liver?? Contact dermatitis?? Fatigue?? H/O primary malignant neoplasm of larynx?? Health care maintenance?? Heart failure with preserved ejection fraction?? Hemoptysis?? Hemoptysis?? HTN (hypertension)?? Hyperlipidemia?? Medication induced coagulopathy?? Muscle cramps?? Rhinitis?? Right inguinal hernia?? S/P laryngectomy?? Education Materials Below is the list of Educational Leaflet Providered with your Discharge Instructions. WebMD Ignite Patient Education - Warfarin?? WebMD Ignite Patient Education - Hemoptysis?? Valuables and Belongings I fully understand and agree that [facility] accepts no responsibility for all my personal [...] of Valuable and Belonging List: With patient Date for Pt to Sign Valuables/Belongings: 05/13/24 15:21:00 ?? Valuables & Belongings ?? Clothes Electronic devices Jewelry Monetary Items Personal devices Miscellaneous Medications (Valuables) Valuables at Bedside Pants, Shirt, Other: hat Cell phone Watch Wallet ? Valuables Sent Home ? Valuables Sent to Security ? Valuables Sent to Locker ? Other Discharge Information ? Pulmonary Rehab [...] are strongly encouraged to quit. Please call [facility] Live[employer]zz Link at [phone] or [phone]) or log in to [email or web address] for referrals to smoking cessation programs. ?? 982 Suicide & Crisis Lifeline is available 30/03 if you or someone you know needs to find a reason to keep living. By calling 946 you'll be connected to a skilled, trained counselor at a crisis center in your area. INPATIENT DISCHARGE INSTRUCTIONS SIGNATURE PAGE REGAN DUKES Location:[facility] Registration Date and Time:05/13/2024 09:53 EDT Primary Care Physician: Razia WILSON, Felix Denis, Attending Physician: Cheyenne Nelson DO, I ALVINCARLOS EDUARDOREGAN, have received the above patient education materials/instructions and have verbalized understanding. If ambulance or transport services are being used I further acknowledge being given a choice of service. ?? If you need to contact me, please call me at this number: . Patient/Center Hole Reamer Name: Patient/Center Hole Reamer Signature: Relationship to Patient: Witness Name/Signature: Date: * Helena Dunn MD: PERFORM Event Display: Patient Education Leaflets Authored Date: [id number] Warfarin ?? [id number] Warfarin Brand Name(s): Coumadin??, Jantoven??; also available generically IMPORTANT WARNING: Warfarin may cause severe bleeding that can be life-threatening and even cause . Tell your doctor if you have or have ever had a blood or bleeding disorder; bleeding problems, especially in yourstomach or your esophagus (tube from the throat to the stomach), intestines, urinary tract or bladder, or lungs; high blood pressure; heart attack; angina (chest pain or pressure); heart disease; pericarditis (swelling of the lining (sac) around the heart); endocarditis (infection of one or more heart valves); a stroke or ministroke; aneurysm (weakening or tearing of an artery or vein); anemia (low number of red blood cells in the blood); cancer; chronic diarrhea; or kidney, or liver disease. Also tell your doctor if you fall often or have had a recent serious injury or surgery. Bleeding is more likely during warfarin treatment for people over 65 years of age, and it is also more likely during the first month of warfarin treatment. Bleeding is also more likely to occur for people who take high doses of warfarin, or take this medication for a long time. The risk for bleeding while takingwarfarin is also higher for people participating in an activity or sport that may result in seriousinjury. Tell your doctor and pharmacist if you are taking or plan to take any prescription or nonprescription medications, vitamins, nutritional supplements, and herbal or botanical products (See SPECIAL PRECAUTIONS), as some of these products may increase the risk for bleeding while you are takingwarfarin. If you experience any of the following symptoms, call your doctor immediately: pain, swelling, or discomfort, bleeding from a cut that does not stop in the usual amount of time, nosebleeds or bleeding from your gums, coughing up or vomiting blood or material that looks like coffee grounds, unusual bleeding or bruising, increased menstrual flow or vaginal bleeding, pink, red, or dark brown urine, red or tarry black bowel movements, headache, dizziness, or weakness. Some people may respond differently to warfarin based on their heredity or genetic make-up. Your doctor may order a blood test to help find the dose of warfarin that is best for you. Warfarin prevents blood from clotting so it may take longer than usual for you to stop bleeding if you are cut or injured. Avoid activities or sports that have a high risk of causing injury. Call your doctor if bleeding is unusual or if you fall and get hurt, especially if you hit your head. Keep all appointments with your doctor and the laboratory. Your doctor will order a blood test (PT [prothrombin test] reported as INR [international normalized ratio] value) regularly to check your body's response to warfarin. If your doctor tells you to stop taking warfarin, the effects of this medication may last for 2 to 5 days after you stop taking it. Your doctor or pharmacist will give you the project executive's patient information sheet (Medication Guide) when you begin treatment with warfarin and each time you refill your prescription. Read the information carefully and ask your doctor or pharmacist if you have any questions. You can also visit the Food and Drug Administration (FDA) website (https://www.fda.gov/downloads/Drugs/DrugSafety/qlv293759.pdf) or the project executive's website to obtain the Medication Guide. Talk to your doctor about the risk(s) of taking warfarin. WHY is this medicine prescribed? Warfarin is used to prevent blood clots from forming or growing larger in your blood and blood vessels. It is prescribed for people with certain types of irregular heartbeat, people with prosthetic (replacement or mechanical) heart valves, and people who have suffered a heart attack. Warfarin is also used to treat or prevent venous thrombosis (swelling and blood clot in a vein) and pulmonary embolism (a blood clot in the lung). Warfarin is in a class of medications called anticoagulants ('bloodthinners'). It works by decreasing the clotting ability of the blood. HOW should this medicine be used? Warfarin comes as a tablet to take by mouth. It is usually taken once a day with or without food. Take warfarin at around the same time every day. Follow the directions on your prescription label carefully, and ask your doctor or pharmacist to explain any part you do not understand. Take warfarin exactly as directed. Do not take more or less of it or take it more often than prescribed by your doctor. Call your doctor immediately if you take more than your prescribed dose of warfarin. Your doctor will probably start you on a low dose of warfarin and gradually increase or decrease your dose based on the results of your blood tests. Make sure you understand any new dosing instructions from your doctor. Continue to take warfarin even if you feel well. Do not stop taking warfarin without talking to your doctor. Are there OTHER USES for this medicine? This medication may be prescribed for other uses; ask your doctor or pharmacist for more information. What SPECIAL PRECAUTIONS should I follow? Before taking warfarin, ??? tell your doctor and pharmacist if you are allergic to warfarin, any other medications, or any of the ingredients in warfarin tablets. Ask your pharmacist or check the Medication Guide for a listof the ingredients. ??? do not take two or more medications that contain warfarin at the same time.Be sure to check with your doctor or pharmacist if you are uncertain if a medication contains warfarin or warfarin sodium. ??? tell your doctor and pharmacist what prescription and nonprescription medications, vitamins, and nutritional supplements you are taking or plan to take, especially acyclovir (Zovirax); allopurinol (Zyloprim); alprazolam (Xanax); antibiotics such as ciprofloxacin (Cipro), clarithromycin (Biaxin, in Prevpac), erythromycin (E.E.S., Eryc, Antonio-Tab), nafcillin, norfloxacin (Noroxin), sulfinpyrazone, telithromycin (Ketek), and tigecycline (Tygacil); anticoagulants such as argatroban (Acova), dabigatran (Pradaxa), bivalirudin (Angiomax), desirudin (Iprivask), heparin, and lepirudin (Refludan); antifungals such as fluconazole (Diflucan), itraconazole (Onmel, Sporanox), keto conazole (Nizoral), miconazole (Monistat), posaconazole (Noxafil), terbinafine (Lamisil), voriconazole (Vfend); antiplatelet medications such as cilostazol (Pletal), clopidogrel (Plavix), dipyridamole (Persantine, in Aggrenox), prasugrel (Effient), and ticlopidine (Ticlid); aprepitant (Emend); aspirin or aspirin-containing products and other nonsteroidal anti-inflammatory drugs such as celecoxib (Celebrex), diclofenac (Flector, Voltaren, in Arthrotec), diflunisal, fenoprofen (Nalfon), ibuprofen(Advil, Motrin), indomethacin (Indocin), ketoprofen, ketorolac, mefenamic acid (Ponstel), naproxen (Aleve, Naprosyn), oxaprozin (Daypro), piroxicam (Feldene), and sulindac (Clinoril); bicalutamide; bosentan; certain antiarrhythmic medications such as amiodarone (Cordarone, Nexterone, Pacerone), mexiletine, and propafenone (Rythmol); certain calcium channel blocking medications such as amlodipine (Norvasc, in Jose Alejandro, Caduet, Exforge, Lotrel, Twynsta), diltiazem (Cardizem, Cartia XT, Dilacor XR, Tiazac) and verapamil (Calan, Isoptin, Verelan, in Tarka); certain medications for asthma such as montelukast (Singulair), zafirlukast (Accolate), and zileuton (Zyflo); certain medications used to treatcancer such as capecitabine (Xeloda), imatinib (Gleevec), and nilotinib (Tasigna); certain medications for cholesterol such as atorvastatin (Lipitor, in Caduet) and fluvastatin (Lescol); certain medications for digestive disorders such as cimetidine (Tagamet), famotidine (Pepcid), and ranitidine (Zantac); certain medications for human immunodeficiency virus (HIV) infection such as amprenavir, atazanavir (Reyataz), efavirenz (Sustiva), etravirine (Intelence), fosamprenavir (Lexiva), indinavir (Crixivan), lopinavir/ritonavir, nelfinavir (Viracept), ritonavir (Norvir), saquinavir (Invirase), andtipranavir (Aptivus); certain medications for narcolepsy such as armodafinil (Nuvigil) and modafinil (Provigil); certain medications for seizures such as carbamazepine (Carbatrol, Equetro, Tegretol), phenobarbital, phenytoin (Dilantin, Phenytek), and rufinamide (Banzel); certain medications to treat tuberculosis such as isoniazid (in Rifamate, Rifater) and rifampin (Rifadin, in Rifamate, Rifater); certain selective serotonin reuptake inhibitors (SSRIs) or selective serotonin and norepinephrine reuptake inhibitors (SNRIs) such as citalopram (Celexa), desvenlafaxine (Pristiq), duloxetine (Cymbalta), escitalopram (Lexapro), fluoxetine (Prozac, Sarafem, in Symbyax), fluvoxamine (Luvox), milnacipran (Savella), paroxetine (Paxil, Pexeva), sertraline (Zoloft), venlafaxine (Effexor) corticosteroids such as prednisone; cyclosporine (Neoral, Sandimmune); disulfiram (Antabuse); methoxsalen (Oxsoral en, Uvadex); metronidazole (Flagyl); nefazodone (Serzone), oral contraceptives ( control pills); oxandrolone (Oxandrin); pioglitazone (Actos, in Actoplus Met, Duetact, Oseni); propranolol (Inderal) or vilazodone (Viibryd). Many other medications may also interact with warfarin, so be sure to tell your doctor about all the medications you are taking, even those that do not appear on this list. Do not take any new medications or stop taking any medication without talking to your doctor. ??? tell your doctor and pharmacist what herbal or botanical products you are taking, especially coenzyme Q10 (Ubidecarenone), Echinacea, garlic, Ginkgo biloba, ginseng, goldenseal, and Gretna's wort. Th ere are many other herbal or botanical products which might affect your body's response to warfarin. Do not start or stop taking any herbal products without talking to your doctor. ??? tell your doctor if you have or have ever had diabetes. Also tell your doctor if you have an infection, a gastrointestinal illness such as diarrhea, or sprue (an allergic reaction to protein found in grains that causes diarrhea), or an indwelling catheter (a flexible plastic tube that is placed into the bladder to allow the urine to drain out). ??? Tell your doctor if you are , think you might be , or plan to become while taking warfarin. women should not take warfarin unless they have a mechanical heart valve. Talk to your doctor about the use of effective control while taking warfarin. If you become while taking warfarin, call your doctor immediately. Warfarin may harm the fetus. ??? tell your doctor if you are breast-feeding. ??? if you are having surgery, including dental surgery, or any type of medical or dental procedure, tell the doctor or dentist that you are taking warfarin. Your doctor may tell you to stop taking warfarin before the surgery or procedure or change your dosage of warfarin before the surgery or procedure. Follow your doctor'sdirections carefully and keep all appointments with the laboratory if your doctor orders blood tests to find the best dose of warfarin for you. ??? ask your doctor about the safe use of alcoholic beverages while you are taking warfarin. ??? tell your doctor if you use tobacco products. Cigarette smoking may decrease the effectiveness of this medication. What SPECIAL DIETARY instructions should I follow? Eat a normal, healthy diet. Some foods and beverages, particularly those that contain vitamin K, can affect how warfarin works for you. Ask your doctor or pharmacist for a list of foods that contain vitamin K. Eat consistent amounts of vitamin K-containing food on a dalc-kf-rfvq basis. Do not eat large amounts of leafy, green vegetables or certain vegetable oils that contain large amounts of vitamin K. Be sure to talk to your doctor before you make any changes in your diet. Talk to your doctor about eating grapefruit and drinking grapefruit juice while taking this medication. What should I do IF I FORGET to take a dose? Take the missed dose as soon as you remember it, if it is the same day that you were to take the dose. Do not take a double dose the next day to make up for a missed one. Call your doctor if you wilda dose of warfarin. What SIDE EFFECTS can this medicine cause? Warfarin may cause side effects. Tell your doctor if any of these symptoms are severe or do not go away: ??? gas ??? abdominal pain ??? bloating ??? change in the way things taste ??? loss of hair ??? feeling cold or having chills ??? If you experience any of the following symptoms, or those listed in the IMPORTANT WARNING section, call your doctor immediately: ??? hives ??? rash ??? itching ??? difficulty breathing or swallowing ??? swelling of the face, throat, tongue, lips, or eyes ??? hoarseness??? chest pain or pressure ??? swelling of the hands, feet, ankles, or lower legs ??? fever ??? infection ??? nausea ??? vomiting ??? diarrhea ??? extreme tiredness ??? lack of energy ??? loss of appetite ??? pain in the upper right part of the stomach ??? yellowing of the skin or eyes ??? flu-likesymptoms You should know that warfarin may cause necrosis or gangrene ( of skin or other body tissues).Call your doctor immediately if you notice a purplish or darkened color to your skin, skin changes,ulcers, or an unusual problem in any area of your skin or body, or if you have a severe pain that occurs suddenly, or color or temperature change in any area of your body. Call your doctor immediately if your toes become painful or become purple or dark in color. You may need medical care right away to prevent amputation (removal) of your affected body part. Warfarin may cause other side effects. Call your doctor if you have any unusual problems while taking this medication. What should I know about STORAGE and DISPOSAL of this medication? Keep this medication in the container it came in, tightly closed, and out of reach of children. Store it at room temperature and away from excess heat, moisture (not in the bathroom), and light. Unneeded medications should be disposed of in special ways to ensure that pets, children, and otherpeople cannot consume them. However, you should not flush this medication down the toilet. Instead,the best way to dispose of your medication is through a medicine take-back program. Talk to your pharmacist or contact your local garbage/recycling department to learn about take-back programs in your community. See the FDA's Safe Disposal of Medicines website (https://goo.gl/c4Rm4p) for more information if you do not have access to a take-back program. It is important to keep all medication out of sight and reach of children as many containers (such as weekly pill minders and those for eye drops, creams, patches, and inhalers) are not child-resistant and young children can open them easily. To protect young children from poisoning, always lock safety caps and immediately place the medication in a safe location ??? one that is up and away and out of their sight and reach. https://www.upandaway.org What should I do in case of OVERDOSE? In case of overdose, call the poison control helpline at . Information is also available online at https://www.poisonhelp.org/help. If the victim has collapsed, had a seizure, has trouble breathing, or can't be awakened, immediately call emergency services at 161. Symptoms of overdose may include the following: ??? bloody or red, or tarry bowel movements ??? spitting or coughing up blood ??? heavy bleeding with your menstrual period ??? pink, red, or dark brown urine ??? coughing up or vomiting material that looks like coffee grounds ??? small, flat, round red spots under the skin ??? unusual bruising or bleeding ??? continued oozing or bleeding from minor cuts What OTHER INFORMATION should I know? Carry an identification card or wear a bracelet stating that you take warfarin. Ask your pharmacistor doctor how to obtain this card or bracelet. List your name, medical problems, medications and dosages, and doctor's name and telephone number on the card. Tell all your healthcare providers that you take warfarin. Do not let anyone else take your medication. Ask your pharmacist any questions you have about refilling your prescription. It is important for you to keep a written list of all of the prescription and nonprescription (kxgl-fev-frhtnwi) medicines you are taking, as well as any products such as vitamins, minerals, or otherdietary supplements. You should bring this list with you each time you visit a doctor or if you areadmitted to a hospital. It is also important information to carry with you in case of emergencies. This report on medications is for your information only, and is not considered individual patient advice. Because of the changing nature of drug information, please consult your physician or pharmacist about specific clinical use. The [employer] represents that the information provided hereunder was formulated with a reasonable standard of care, and in conformity with professional standards in the field. The [employer] makes no representations or warranties, express or implied, including, but not limited to, any implied warranty of merchantability and/or fitness for a particular purpose, with respect to such information and specifically disclaims all such warranties. Users are advised that decisions regarding drug therapy are complex medical decisions requiring the independent, informed decision of an appropriate health child care teacher, and the information is provided for informational purposes only. The entire monograph for a drug should be reviewed for a thorough understanding of the drug's actions, uses and side effects. The [employer] does not endorse or recommend the use of any drug.The information is not a substitute for medical care. AHFS?? Patient Medication Information???. ?? Copyright, 2023. The [employer]??, [address], [address], [place], [place]. All Rights Reserved. Duplication for commercial use must be authorized by [facility]. Selected Revisions: February 19, 2017. AHFS?? Patient Medication Information???. ?? Copyright, 2023 ?? * Helena Dunn MD: PERFORM Event Display: Patient Education Leaflets Authored Date: [id number] Hemoptysis ?? [id number] Hemoptysis Hemoptysis is the medical term for coughing up blood. It can be caused by many things, including minor illnesses like bronchitis. It can also be an early sign of a more serious illness, like a blood clot in the lung (pulmonary embolism), cancer, tuberculosis, or pneumonia. Less common causes of hemoptysis can be hard to diagnose in an emergency room or a clinic. More testing will be needed if the symptoms continue. Home care ??? Stay away from cigarette smoke. Smoke irritates the bronchial passages. ??? Unless you are taking daily aspirin to prevent stroke or heart attack, don't take aspirin or products that contain aspirin. Check with your healthcare provider to see if you should continue the aspirin or whenyou should restart it if you develop hemoptysis. Aspirin affects how easily the blood clots. Medicines that prevent clotting may make hemoptysis worse. ??? If you have a lung infection, drink extra fluid. This will help loosen lung secretions. ??? Daxd-xee-ltdizbl (OTC) cough medicines that containdextromethorphan may help reduce coughing. Note: Check with your provider before taking dextromethorphan or other OTC medicines if you have a chronic illness, are , or take daily prescribed medicines. ??? If you were prescribed an antibiotic, take it until it's all gone. Take it even if you're feeling better after only a few days. ?? Follow-up care Follow up with your healthcare provider, or as advised. ?? When to get medical advice Call your healthcare provider right away if any of these occur: ??? Fever of 100.4??F (38??C) or higher, or as advised by your provider ?? Call 911 Call 911 if any of these occur: ??? Coughing up more blood ??? Trouble breathing, wheezing, or painwith breathing ??? Chest pain or chest pressure ??? Fainting or losing consciousness ??? Fast heartbeat ??? Feeling weak or dizzy ??? Feeling of doom ?? Last Reviewed Date: 2021 ?? 6022-7627 [employer]. All rights reserved. This information is not intended as a substitute for professional medical care. Always follow your healthcare professional's instructions. ?? * Event Display: GG Bronchoscopy Please click on pdf link to open report Admission evaluation note * Casey Rouse MD: PERFORM, MODIFY Event Display: Admission Note Authored Date: [id number] Patient: ??REGAN DUKES ? Age:??74 Years?Sex:??Male?:??1950?? 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 The patient has been having increased hemoptysis since the winter, more frequent and lasting longer. He had a particularly bad episode yesterday. He had significant bleeding that he was wiping with tissues. He was able to obtain an urgent pulm??visit yesterday and the plan was for bronchoscopy Thursday, but if he had worsening??he needed to go to the ED. ?? Last night he had a large amount of bleeding and went to [facility]. ?? T 97.9 BP 128/74 HR 73 RR 16 O2 90% RA WBC 5.1 HGB 9.6 (baseline ~10) PLT 107 INR 2.9 K??1.2 He was given inhaled tranexemic acid, vitamin K and K CEntra Bleeding stopped, except for??one episode of a teaspoon of bleeding shortly before transfer to [facility]. ?? On arrival to the floor, he has no bleeding and feels at his baseline. ?? ROS: As above, rest of full review negative. Objective Temperature?97.8 ?(10:13) Systolic Blood Pressure?118 ?(10:13) Diastolic Blood Pressure?61 ?(10:13) Pulse?67 ?(10:13) SpO2?96 ?(10:03) Respiratory Rate?20 ?(10:13) ?? 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 ?? Hemoptysis (R04.2):?? Bleeding under control s/p??warfarin reversal??with K centra, vitamin K. - NPO including meds for bronchoscopy? Afib (I48.91): - hold warfarin - no bridging given risk of bleeding - cont digoxin ?? 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 GERD: - cont Omeprazole (omeprazole 20 mg oral enteric coated capsule)?1?capsule?By Mouth?Daily ?? CAD - cont Simvastatin (simvastatin 20 mg oral tablet)?20?Milligram?1?tablet?By Mouth?Daily at bedtime ?? BPH: - cont Terazosin (terazosin 10 mg oral capsule)?10?Milligram?1?capsule?By Mouth?Daily at bedtime ? DVT - warfarin??when tolerated per pulm DIET - regular CODE - full?? Histories Past Medical History/Problem List Active Problems(24) ACC/AHA stage D systolic heart failure Afib Amyloidosis Anemia CAD (coronary artery disease) Cardiomyopathy Cervicalgia Chronic back pain Chronic kidney disease, stage 3a Cirrhosis of liver Contact dermatitis Fatigue H/O primary malignant neoplasm of larynx Health care maintenance Heart failure with preserved ejection fraction Hemoptysis Hemoptysis HTN (hypertension) Hyperlipidemia Medication induced coagulopathy Muscle cramps Rhinitis Right inguinal hernia S/P laryngectomy ? Medications Home Medications Ascorbic Acid (Vitamin C 500 mg oral tablet)?1?tab(s)?500?Milligram?By Mouth?Daily in AM Calcium Carbonate (calcium carbonate 600 mg oral tablet)?1?tab(s)?600?Milligram?By Mouth?Daily in AM Docusate?100?Milligram?By Mouth?2 times a day empagliflozin (Jardiance 10 mg oral tablet)?TAKE ONE TABLET BY MOUTH EVERY DAY Ferrous Sulfate (ferrous sulfate 325 mg oral enteric coated tablet)?1?tablet?By Mouth?2times a day Magnesium Oxide (magnesium oxide 250 mg oral tablet)?1?tab(s)?250?Milligram?By Mouth?Daily at bedtime Metolazone (metolazone 2.5 mg oral tablet)?TAKE 1 TABLET TWICE A WEEK DIRECTED Omeprazole (omeprazole 20 mg oral enteric coated capsule)?1?capsule?By Mouth?Daily Simvastatin (simvastatin 20 mg oral tablet)?20?Milligram?1?tablet?By Mouth?Daily at bedtime Sodium Chloride (sodium chloride 0.9% inhalation solution)?See Instructions?Use at least 3 times daily for tracheostoma humidification. Spironolactone (spironolactone 25 mg oral tablet)?25?Milligram?1?tablet?By Mouth?Daily?for 90?Days tafamidis (Vyndamax 61 mg oral capsule)?1?capsule?61?Milligram?By Mouth?Daily in AM?for 90?Days?swallow whole Terazosin (terazosin 10 mg oral capsule)?10?Milligram?1?capsule?By Mouth?Daily atbedtime Thiamine (Vitamin B1)?Daily torsemide (torsemide 20 mg oral tablet)?3?tab(s)?60?Milligram?By Mouth?Daily Warfarin (Jantoven 5 mg oral tablet)?1-2 TABLETS?By Mouth?Daily?PER PROTOCOL. ? Inpatient Medications Medications (13) Active SCHEDULED: (6) Dapagliflozin 5 mg Tablet (Dapagliflozin Tablet) ??5 mg, By Mouth, Daily NaCl 0.9% Flush 3ml (NaCL 0.9% Flush) ??3 mL, IV Push, Every 8 hours Pantoprazole 20 mg EC Tablet (pantoprazole 20 mg oral delayed release tablet) ??20 mg, By Mouth, Daily Simvastatin 20 mg Tablet (simvastatin 20 mg oral tablet) ??20 mg, By Mouth, Daily at bedtime Spironolactone 25 mg Tablet (spironolactone 25 mg oral tablet) ??25 mg, By Mouth, Daily Terazosin 10 mg Capsule (terazosin 10 mg oral capsule) ??10 mg, By Mouth, Daily at bedtime CONTINUOUS: (0) PRN: (7) Acetaminophen 325 mg Tablet (Acetaminophen Tablet) ??650 mg, By Mouth, Every 4 hours Dextromethorphan-Guaifenesin 20 mg-200 mg/10 mL Liqu UD (Robitussin DM Liquid) ??10 mL, By Mouth, Every 4 hours Melatonin 3 mg Tablet (Melatonin Tablet) ??3 mg, By Mouth, Daily at bedtime NaCl 0.9% Flush 3ml (NaCL 0.9% Flush) ??3 mL, IV Push, Every 8 hours Polyethylene Glycol 17 Gm Powder (MiraLax Powder) ??17 Gm 1 pack/packet, By Mouth, Daily Senna Tablet ??8.6 mg 1 tablet, By Mouth, 2 times a day Simethicone 80 mg Chewable Tablet (Simethicone Tablet) ??80 mg, Chew, 3 times a day ? Hospital Progress note * Clarice Stevens RN: PERFORM, SIGN, VERIFY Event Display: Progress Note Hospital Authored Date: Patient: REGAN DUKES Age: 74 years Sex: Male : 1950 Associated Diagnoses: None Author: Clarice Stevens RN Findings Narrative/Incidental Pt A&O, VSS, denies pain or discomfort, denies hemoptysis or any bleeding.. No s/s respiratoy distress. Plan of care progressing. * Alisha Jimenez RN: PERFORM, SIGN, VERIFY Event Display: Progress Note Hospital Authored Date: Patient: REGAN DUKES Age: 74 years Sex: Male : 1950 Associated Diagnoses: None Author: Alisha Jimenez RN Findings Problem Related to Alteration in Respiratory Function (new) : Alteration in Respiratory Function/new 05/13/2024 16:00 EDT Alteration in Resp Status Related to Other: hemoptysis Goals & Outcomes, Respiratory Pt will maintain/resume baseline physical assessment, Pt will notdevelop complications r/t mechanical ventilation, Pt will maintain adequate nutritional intake, Pt will maintain/resume normal fluid/electrolyte balance, Pt will not develop complications r/t immobility, Pt will demonstrate proper technique w/self care procedures Interventions, Respiratory Assess/monitor tolerance to IV infusions; verify rate/dose, Assess for and report S&S of respiratory distress, Position for comfort & optimal oxygenation, Chest tube drainage, maintain drainage/suction as ordered, Initiate pulmonary rehab nurse consult, Monitor sputum color & consistency. Report changes to MD PEREZ Goals/Interventions, Respiratory Yes Respiratory, Problem Start 05/13/2024 19:01 Reviewed Plan with, Respiratory Patient Patient Progression, Respiratory Plan Initiation . Evaluation Pt transferred from [place] for hemoptysis, pt regularly comes to this hospital. No current bleeding, endotracheal stoma is clean. Pt has some occasional yellow sputum- can cough it up. Ambu bag and suction at bedside. Pt NPO for bronchoscopy around 1500 today. Came back to unit hungry, got switched to a regular diet. . Consult note * Venu May MD: PERFORM Event Display: Consultation Note Authored Date: [id number] Patient: ??REGAN DUKES ? Age:??74 Years?Sex:??Male?:??1950?? 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 Diagnosis laryngeal cancer initially in 2004 which was treated with radiation.?? Since then he has had multiple evaluations and it turned out to be invasive in 2019 which led to a laryngectomy. ?? Patient reports??ongoing issues with his bleeding which used to be sporadic and minimal in amount, however, this winter has been quite significant with recurrent episodes almost on a daily basis.?? These episodes are more prominent in the morning when he wakes up and it clears up during the day.?? He has not been using any type of care as such in the past.?? He denies having this much amount of bleeding last winter.?? No recent illness.?? Patient also mentions that he ends up cleaning his stoma using a wet cloth and trying to clear the blood. ?? He was seen and evaluated in the interventional pulmonary clinic and at that time bleeding had subsided and the plan was to continue conservative management and return PRN> Unfortunately he neededto be seen for an urgent visit at the Pulmonary clinic on 05/[address] Mitchell, for recurrent increased volume hemoptysis. His INR was supratherapeutic. An urgent broncho was supposed to be planned for 05/16 however he subsequently presented to [facility] ED, and ended up here.? He was made NPO, and it was reported to us that he was given reversal agent for his warfarin. Repeat INR 1.7 subtherapeutic.?? Review of Systems Ten point ROS was performed and found to be negative except HPI Physical Exam Vitals & Measurements T:??97.8?F?? HR:??70??(Peripheral)?? RR:??20?? BP:??118/61?? SpO2:??96%?? Constitutional: NAD HEENT: Normal oropharynx. Laryngeal stoma with crusted blood and no active bleeding seen.?? Respiratory:??Clear to auscultation bilaterally?? Cardiac: RRR, no m/r/g Vascular: ??2+ DP pulses Gastrointestinal: abdomen is soft,??nondistended Muscle skeletal: no clubbing Lymph: no lymphadenopathy, no edema Psych: Normal affect Assessment/Plan Assessment:??Hx of??laryngeal cancer s/p laryngectomy?? Permanent tracheal stoma?? Hemoptysis Supratherapeutic INR - Seen and evaluated at bedside, based on symptoms and presentation it's very reasonable to proceedwith an airway inspection today which will be arranged.?? - Repeat INR subtherapeutic (post reversal) - No active bleeding therefore no indication for a CTA Neck/chest at this point.?? - Continue stoma care? Further recs to come post bronch? Discussed with??Dr. Almazan? Venu Romo MD PGY-5 Pulmonary and Critical Care Medicine? Discharge Planning:? Problem List/Past Medical History Ongoing ACC/AHA stage D systolic heart failure Afib Amyloidosis Anemia CAD (coronary artery disease) Cardiomyopathy Cervicalgia Chronic back pain Chronic kidney disease, stage 3a Cirrhosis of liver Contact dermatitis Fatigue H/O primary malignant neoplasm of larynx Health care maintenance Heart failure with preserved ejection fraction Hemoptysis Hemoptysis HTN (hypertension) Hyperlipidemia Medication induced coagulopathy Muscle cramps Rhinitis Right inguinal hernia S/P laryngectomy Procedure/Surgical History ???Esophagogastroduodenoscopy and biopsy (07/01/2023)???Colonoscopy with polypectomy (08/16/2021)???Colonoscopy with polypectomy (08/16/2021)???Bronchoscopy Medications Inpatient Acetaminophen Tablet, 650 mg, By Mouth, Every 4 hours, PRN Docusate Sodium Capsule, 100 mg= 1 capsule, By Mouth, 2 times a day, PRN Melatonin Tablet, 3 mg, By Mouth, Daily at bedtime, PRN MiraLax Powder, 17 Gm= 1 pack/packet, By Mouth, Daily, PRN NaCL 0.9% Flush, 3 mL, IV Push, Every 8 hours NaCL 0.9% Flush, 3 mL, IV Push, Every 8 hours, PRN Robitussin DM Liquid, 10 mL, By Mouth, Every 4 hours, PRN Senna Tablet, 8.6 mg= 1 tablet, By Mouth, 2 times a day, PRN Simethicone Tablet, 80 mg, Chew, 3 times a day, PRN Home calcium carbonate 600 mg oral tablet, 600 mg= 1 tablet, By Mouth, Daily in AM Docusate, 100 mg, By Mouth, 2 times a day ferrous sulfate 325 mg oral enteric coated tablet, 1 tablet, By Mouth, 2 times a day humidifier, See Instructions Jantoven 5 mg oral tablet, 1-2 TABLETS, By Mouth, Daily Jantoven 5 mg oral tablet Jardiance 10 mg oral tablet magnesium oxide 250 mg oral tablet, 250 mg= 1 tablet, By Mouth, Daily at bedtime metolazone 2.5 mg oral tablet Nebulizer/Compressor, See Instructions omeprazole 20 mg oral enteric coated capsule, 1 capsule, By Mouth, Daily, 1 refills simvastatin 20 mg oral tablet, 20 mg= 1 tablet, By Mouth, Daily at bedtime sodium chloride 0.9% inhalation solution, See Instructions, 11 refills spironolactone 25 mg oral tablet, 25 mg= 1 tablet, By Mouth, Daily, 3 refills terazosin 10 mg oral capsule, 10 mg= 1 capsule, By Mouth, Daily at bedtime torsemide 20 mg oral tablet, 40 mg= 2 tablet, By Mouth, Daily Vitamin B1, Daily Vitamin C 500 mg oral tablet, 500 mg= 1 tablet, By Mouth, Daily in AM Vyndamax 61 mg oral capsule, 61 mg= 1 capsule, By Mouth, Daily in AM, 3 refills Allergies Venofer??(bleeding, hypotension) Social History Alcohol Use: Past. Alcohol use in household: No. Electronic Cigarette/Vaping Electronic Cigarette Use: Never. Substance Abuse Use: Never. Tobacco Use: Former smoker, quit more than 30 days ago. Family History Congestive heart failure: Mother. Crohn's disease: Sister. Dementia: Father. Developmental delay: Sister. Heart attack: Mother. Hypertension: Mother and Sister. Skin cancer: Sister. Immunizations Vaccine Date Status RSV vaccine preF3, recombinant 09/24/2023 Recorded pneumococcal 20-valent conjugate vaccine 07/27/2023 Recorded influenza virus vaccine, inactivated 07/13/2023 Recorded SARS-CoV-2(COVID-19)mRNA-LNP vac([id number]) 07/09/2023 Recorded [id number] bivalent booster vax 04/22/2023 Recorded zoster vaccine, inactivated 09/09/2022 Recorded zoster vaccine, inactivated 06/25/2022 Recorded influenza virus vaccine, inactivated 06/10/2022 Recorded [id number] bivalent booster vax 05/27/2022 Recorded SARS-CoV-2 (COVID-19) mRNA-1273 vaccine 12/12/2021 Recorded SARS-CoV-2 (COVID-19) mRNA-1273 vaccine 07/03/2021 Recorded influenza virus vaccine, inactivated 06/07/2021 Recorded SARS-CoV-2 (COVID-19) mRNA-1273 vaccine 12/01/2020 Given SARS-CoV-2 (COVID-19) mRNA-1273 vaccine 11/03/2020 Given influenza virus vaccine, inactivated 05/27/2020 Recorded pneumococcal 23-valent vaccine 08/06/2019 Recorded pneumococcal 13-valent vaccine 10/17/2018 Given tetanus/diphtheria/pertussis, acel(Tdap) 08/03/2012 Recorded pneumococcal 23-valent vaccine - Not Given Comments : Patient Refused * Venu May MD: PERFORM Event Display: Consultation Note Authored Date: Patient s/p bronchoscopy please see separate note for details. No sign of active bleeding. Likely in the setting of cough, and supratherapeutic INR however no bronchoscopic intervention indicated. Continue usual care. Patient OK for discharge from a pulmonary standpoint. * Lety Almazan MD: PERFORM Event Display: Consultation Note Authored Date: Patient seen, examined, investigative data reviewed and plan of care discussed with Dr. Jason Romo. I agree with ??Jason Romo's??history, exam findings and plan of care as documented.??Recurrent hemoptysis likely related to supratherapeutic INR and mucosal bleeding. On bronch no bleeding noted, no granulation tissue noted. Patient Care team information Care Team Personnel Name: Roxy Nunes RN Position: [facility] RN Member Role: Primary Care Nurse Name: Chela Jung MA Position: [facility] Member Role: Lifetime Consulting Physician Name: Aleks Rodriguez RN Position: [facility] Ralph RN Member Role: Primary Care Nurse Name: Zuleyma Gonzales RN Position: [facility] RN Member Role: Primary Care Nurse Name: Lizabeth Montaño RN Position: [facility] RN Member Role: Primary Care Nurse Name: Osiris Portillo RN Position: S RN Member Role: Primary Care Nurse Name: Vinita Dailey RN Position: [facility] RN Member Role: Primary Care Nurse Name: Mariana Ovalle RN Position: [facility] RN Member Role: Primary Care Nurse Name: Felix Randle MD Position: [facility] Physician - Primary Care Member Role: PCP Address: Address: [address] [place] [id number]- Care Team Related Persons Name: LEONARD MCCOLLUM Address: home [address] [facility] [facility] [place] [address] Name: CLAUDIA LAI Address: home [place] [id number] Name: HEBER DUKES
--- OUTSIDE RECORDS SUMMARY | 2024-05-24 00:15 | XMS_ITS | Continuity of Care Document ---
Author Organization [facility] Address [address] [place] [address] [address], [address] [place] [address]- Care Team Providers Care Sand Mixer Operator Name Role Phone Razia WILSON, Felix Denis Primary Care Physician [phone] Encounter [facility] Date(s): 08/25/23 - 09/01/23 [facility] [address] [place] [address], [address] [place], [place] [address] Attending Physician: Tasneem Siddiqui MD Allergies, Adverse Reactions, Alerts Substance Reaction Severity Status Venofer 1 bleeding hypotension Active 1hypotension Immunizations Given and Recorded Vaccine Date Status Refusal Reason influenza virus vaccine, inactivated 07/13/23 Faraz rded influenza virus vaccine, inactivated 06/10/22 Faraz rded influenza virus vaccine, inactivated 06/07/21 Faraz rded influenza virus vaccine, inactivated 05/27/20 Faraz rded SARS-CoV-2(COVID-19)mRNA-LNP vac([id number]) 07/09/23 Recorded [id number] bivalent booster vax 04/22/23 Recorded [id number] bivalent booster vax 05/27/22 Recorded zoster vaccine, [...] 07/22/23 11:59:00 EST, Route to Pharmacy Electronically, [id number], Partial fill upon patient request [...] Replace Required Details, Route to Pharmacy Electronically, [id number], 188, cm, 07/22/23 [...] oldest [Reference Range]: 1 Height 187.96 cm (08/25/23 10:55 AM) Weight 81.6 kg (08/25/23 10:55 AM) Oxygen Saturation [94-100 %] 93 % *L* (08/25/23 10:55 AM) Pulse Rate [55-90 bpm] 71 bpm (08/25/23 10:55 AM) Body Mass Index [18.5-24.99 kg/m2] 23.1 kg/m2 (08/25/23 10:55 AM) Blood Pressure [90-138/55-84 mm Hg] 104/ 52mm Hg (08/25/23 10:55 AM) Temperature [96.8-100.4 DegF] 97.1 DegF (08/25/23 10:55 AM) Mode of Delivery (Oxygen) Room air (08/25/23 10:55 AM) Blood pressure sites Arm, right (08/25/23 10:55 AM) Temperature Route Temporal (08/25/23 10:55 AM) Weight Obtained Via Standing scale (08/25/23 10:55 AM) Social History Social History Type Response Smoking Status Former smoker, quit more than 30 days ago entered on: 02/17/23 Sex Patient Care team information Care Team Personnel Name: Chela Jung MA Position: [facility] [place] Member Role: Lifetime Consulting Physician Name: Aleks Rodriguez RN Position: [facility] Ralph RN Member Role: Primary Care Nurse Name: Zuleyma Gonzales RN Position: [facility] RN Member Role: Primary Care Nurse Name: Osiris Croft PharmD Position: [facility] Associate Professional Member Role: Lifetime Consulting Provider Address: Address: [address] [place], [place] [address], [place] [address] Name: Lizabeth Montaño RN Position: [facility] RN Member Role: Primary Care Nurse Name: Osiris Portillo RN Position: [facility] RN Member Role: Primary Care Nurse Name: Mariana Ovalle RN Position: [facility] SN RN Member Role: Primary Care Nurse Name: Razia WILSON, Felix Denis Position: [facility] Physician - Primary Care Member Role: PCP Address: Address: [place] [address]- Care Team Related Persons Name: LEONARD MCCOLLUM Address: home [address] [place] [address] Name: CLAUDIA LAI Address: home [place] [id number] [place] Name: HEBER DUKES
[2024-05-24 00:43] LABS: MANUAL DIFF FLAG NO
[2024-05-24 00:47] LABS: Basophils Percent Auto 0.6 % (0-2); Eosinophils Absolute Auto 0.1 X10*3/uL (0.0-0.4); Eosinophils Percent Auto 2.4 % (0-4); Hematocrit 30.5 % (42.0-52.0); Hemoglobin 10.2 g/dl (14.0-18.0); Imm Gran Abs Auto 0.03 X10*3/uL (0.00-0.03); Imm Gran Pct Auto 0.6 % (0.0-0.4); Lymphocytes Absolute Auto 0.6 X10*3/uL (1.2-4.9); Lymphocytes Percent Auto 11.6 % (20-40); Mean Corpuscular HGB Conc 33.4 g/dl (31.0-36.0); Mean Corpuscular Hemoglobin 31.5 pg (27.0-33.0); Mean Corpuscular Volume 94.1 fL (80.0-98.0); Mean Platelet Volume 10.6 fL (9.4-12.4); Monocytes Absolute Auto 0.7 X10*3/uL (0.1-1.2); Monocytes Percent Auto 13.2 % (2-11); Neutrophils Absolute Auto 3.6 x10*3/uL (2.0-8.3); Neutrophils Percent Auto 71.6 % (45-73); Platelet Count 108 X10*3/uL (160-400); Red Blood Count 3.24 X10*6/uL (4.60-5.80); Red Cell Distribution Width 15.4 % (11.0-16.0)
[2024-05-24 01:09] LABS: INTERNATIONAL NORM RATIO 1.8 (0.9-1.1); Prothrombin Time 22.5 SEC (11.1-13.3)
--- NOTE | 2024-05-24 01:18 | ED.GENADULT ---
HPI - General Adult General Chief complaint: General Medical Stated complaint: throat issue, bleeding Time Seen by Provider: 05/23/24 23:58 Source: patient Mode of arrival: ambulatory Limitations: no limitations History of Present Illness ED Provider: Dr. Garcia HPI narrative: patient has a history of laryngectomy for pharyngeal cancer, Afib on coumadin, cardiomyopathy and congestive heart failure who presents with hemptysis. 12 days ago patient had a similar episode and was given FFP, kcentra and IV vitamin K. There was no active bleeding in the ED and he was transferred to [facility] and had a bronchoscopy that was negative Onset (ago): hour(s) Severity: mild Related Data Home Medications ?Medication ?Instructions ?Recorded ?Confirmed digoxin 250 mcg (0.25 mg) tablet 0 mcg PO 07/18/20 03/09/24 ferrous sulfate 325 mg (65 mg 325 mg PO BID 07/18/20 03/09/24 iron) tablet hydrocodone 5 mg-acetaminophen 325 tab PO 07/18/20 03/09/24 mg tablet lisinopril 2.5 mg tablet 2.5 mg PO DAILY 07/18/20 03/09/24 lorazepam 1 mg tablet 1 mg PO BID PRN 07/18/20 03/09/24 metoprolol succinate 25 mg 25 mg PO DAILY 07/18/20 03/09/24 tablet,extended release 24 hr omeprazole 20 mg capsule,delayed 20 mg PO DAILY 07/18/20 03/09/24 release oxycodone-acetaminophen 5 mg-325 tab PO 07/18/20 03/09/24 mg tablet simvastatin 40 mg tablet 40 mg PO DAILY 07/18/20 03/09/24 spironolactone 25 mg tablet 25 mg PO DAILY 07/18/20 03/09/24 torsemide 20 mg tablet 20 mg PO BID 07/18/20 03/09/24 warfarin 1 mg tablet mg PO 07/18/20 03/09/24 warfarin 5 mg tablet 500f10 mg PO DAILY 07/18/20 03/09/24 ferrous sulfate 325 mg (65 mg 325 mg PO BID 05/23/21 03/09/24 iron) tablet,delayed release nitroglycerin 0.4 mg sublingual mg sublingual 03/09/24 03/09/24 tablet tafamidis 61 mg capsule (Vyndamax) 61 mg PO DAILY 03/09/24 03/09/24 Previous Rx's ?Medication ?Instructions ?Recorded terazosin 10 mg capsule 10 mg PO DAILY 90 days #90 caps 06/30/23 Allergies Allergy/AdvReac Type Severity Reaction Status Date / Time No Known Allergies Allergy Verified 05/23/24 22:16 [No Known Allergies*] Review of Systems Review of Systems: Yes all other systems are reviewed and are negative Neurologic: Denies Sensory deficit (Neuro) [facility] Past Medical History Medical History Recurrent inguinal hernia Pacemaker Right inguinal hernia History of laryngeal cancer Chronic a-fib BPH (benign prostatic hyperplasia) Surgical History History of left knee replacement Family History Family History (Reviewed 05/24/24 @ : by Gerald Garcia MD) Father No problems noted. Mother History of hypertension Son No problems noted. Son No problems noted. Daughter No problems noted. Social History Social History Alcohol intake: never Patient Tobacco Use Status: Former Tobacco user Smoked in Last 30 Days: No Use of substances other than those prescribed or required for medical reasons: No Advance Directives: No Advance Directives Information Provided: Yes Do you have a plan to hurt others: No Plan Physical Exam ED Vital Signs: Vital Signs - 24 hr 05/23/24 22:12 05/23/24 22:27 05/23/24 23:31 Temperature 98.6 F 98.7 F 98.0 F Pulse Rate 77 65 59 Respiratory Rate 20 15 26 H Blood Pressure 139/55 L 118/53 L 100/46 L Pulse Oximetry 95 94 92 Oxygen Delivery Method Room Air Room Air Room Air 05/24/24 03:01 05/24/24 06:13 Temperature 98.1 F 98.0 F Pulse Rate 68 79 Respiratory Rate 19 16 Blood Pressure 122/62 112/61 Pulse Oximetry 92 94 Oxygen Delivery Method Room Air Room Air BMI result Body Mass Index 26.6 Const Other: frail, cachectic male with laryngectomy Orientation/consciousness: oriented to person and patient oriented x3 Limitations: no limitations HENMT Head: Yes normal to inspection Ears: external ears normal General nose exam: Normal external nose present Mouth: Normal oral and palatal mucosa present and oropharynx normal Throat: Yes posterior oropharynx normal Eyes General: appearance normal, both eyes and all related structures Neck Other: laryngectomy, with direct visualization there is some blood streaks superficially, I do not see any blood streaks deeper on inspection Chest Chest palpation & inspection: normal inspection of the chest Resp Auscultation: clear to auscultation bilaterally Cardio Jugular venous distension: no JVD Rate: regular rate Rhythm: regular rhythm Heart sounds: S1 normal heart sound present and S2 normal heart sound present GI Inspection: Yes normal to inspection Palpation (GI): Soft to palpation, nontender and No hepatosplenomegaly present Auscultation: normal bowel sounds General: Yes no CVA tenderness Back/Spine/Pelvis Back: no CVA tenderness Skin General skin exam: no rashes or lesions noted Neuro General: oriented to person and patient oriented x3 Cranial nerves: Yes CN's II-XII intact bilaterally Motor exam (neuro): 5/5 motor strength present throughout Sensory Exam: No Sensory deficit (Neuro) Extrem General: Yes normal to inspection Psych Appearance: grossly normal Course Reevaluation(s) Reevaluation #1: Discussed with [facility], will give IV vitamin K and will likely hold for a bed [facility] Time: 01:28 Reevaluation #2: I spent 40 minutes of critical care, with interventions, assessments, speaking to patient, consultants, and family. Time: 03:39 Reevaluation #3: physician observation: started at 3:30am, reason is that we need time to see if patient is going to rebleed while his coumadin is reversed. Discussed with ENT of [facility] who state that the patient was just scoped and if not active bleeding we will not need to transfer. At this time patient is resting comforatably, no active bleeding Time: 03:40 Consultations Consultation #1: HCT stable will dc home Time: 06:35 Consultation #2: end Physician observation at 6:35am no further bleeding Time: 06:35 Medications Administered Discontinued Medications Generic Name Dose Route Start Last Admin Trade Name Freq PRN Reason Stop Dose Admin Phytonadione 5 mg/ Sodium 50.5 mls @ 50.5 mls/hr 05/24/24 01:25 05/24/24 02:43 Chloride IV 05/24/24 02:24 Infused ONCE ONE Infusion Medical Decision Making Differential Diagnosis Differential Diagnoses: The differential diagnosis associated with the presentation includes (pharyngeal bleed, hemoptysis, anticoagulation) Admission/Observation Consideration of admission/observation: Escalation of care including admission/observation considered (upon arrival admission was considered) Consult Healthcare Provider [facility] ENT Lab Data 05/24/24 05:18 05/24/24 04:38 Labs: Lab Results 05/24/24 05/24/24 05/24/24 Range/Units 00:37 00:42 04:38 WBC 5.0 (4.8-10.8) X10*3/uL RBC 3.24 L (4.60-5.80) X10*6/uL Hgb 10.2 L (14.0-18.0) g/dl Hct 30.5 L (42.0-52.0) % MCV 94.1 (80.0-98.0) fL MCH 31.5 (27.0-33.0) pg MCHC 33.4 (31.0-36.0) g/dl RDW 15.4 (11.0-16.0) % Plt Count 108 L (160-400) X10*3/uL MPV 10.6 (9.4-12.4) fL Immature Gran % (Auto) 0.6 H (0.0-0.4) % Neut % (Auto) 71.6 (45-73) % Lymph % (Auto) 11.6 L (20-40) % [place] % (Auto) 13.2 H (2-11) % Eos % (Auto) 2.4 (0-4) % Baso % (Auto) 0.6 (0-2) % Lymph # (Auto) 0.6 L (1.2-4.9) X10*3/uL [place] # (Auto) 0.7 (0.1-1.2) X10*3/uL Eos # (Auto) 0.1 (0.0-0.4) X10*3/uL Baso # (Auto) 0.0 (0.0-0.2) X10*3/uL Abs Immat Gran (auto) 0.03 (0.00-0.03) X10*3/uL Absolute Neuts (auto) 3.6 (2.0-8.3) x10*3/uL Absolute Nucleated RBC 0.000 (0.0-0.012) X10*3/uL Nucleated RBC % (auto) 0.0 (0.0-0.2) /100WBC PT 22.5 H (11.1-13.3) SEC INR 1.8 H (0.9-1.1) Sodium 134 L (135-145) mmol/L Potassium 3.5 (3.3-5.1) mmol/L Chloride 98 (96-108) mmol/L Carbon Dioxide 26 (22-29) mmol/L Anion Gap 14 (12-20) BUN 14 (9-16) mg/dL Creatinine 1.13 (0.5-1.4) mg/dL Estim Creat Clear Calc 50.1 Estimated GFR > 60 Random Glucose 106 (60-115) mg/dL Calcium 9.0 (8.4-10.2) mg/dL 05/24/24 Range/Units 05:18 WBC 4.5 L (4.8-10.8) X10*3/uL RBC 3.11 L (4.60-5.80) X10*6/uL Hgb 9.6 L (14.0-18.0) g/dl Hct 29.2 L (42.0-52.0) % MCV 93.9 (80.0-98.0) fL MCH 30.9 (27.0-33.0) pg MCHC 32.9 (31.0-36.0) g/dl RDW 15.3 (11.0-16.0) % Plt Count 92 L (160-400) X10*3/uL MPV 9.5 (9.4-12.4) fL Immature Gran % (Auto) 0.4 (0.0-0.4) % Neut % (Auto) 65.8 (45-73) % Lymph % (Auto) 15.2 L (20-40) % [place] % (Auto) 14.3 H (2-11) % Eos % (Auto) 3.6 (0-4) % Baso % (Auto) 0.7 (0-2) % Lymph # (Auto) 0.7 L (1.2-4.9) X10*3/uL [place] # (Auto) 0.6 (0.1-1.2) X10*3/uL Eos # (Auto) 0.2 (0.0-0.4) X10*3/uL Baso # (Auto) 0.0 (0.0-0.2) X10*3/uL Abs Immat Gran (auto) 0.02 (0.00-0.03) X10*3/uL Absolute Neuts (auto) 3.0 (2.0-8.3) x10*3/uL Absolute Nucleated RBC 0.000 (0.0-0.012) X10*3/uL Nucleated RBC % (auto) 0.0 (0.0-0.2) /100WBC PT (11.1-13.3) SEC INR (0.9-1.1) Sodium (135-145) mmol/L Potassium (3.3-5.1) mmol/L Chloride (96-108) mmol/L Carbon Dioxide (22-29) mmol/L Anion Gap (12-20) BUN (9-16) mg/dL Creatinine (0.5-1.4) mg/dL Estim Creat Clear Calc Estimated GFR Random Glucose (60-115) mg/dL Calcium (8.4-10.2) mg/dL Independent Interpretation I performed an independent interpretation of an: Plain X-Ray (CXR: large cardiomyopathy) Tests considered The following testing was considered but not selected: Ct of chest considered but patient had a bronchoscopy recently. Prescription Management I considered prescription management with: Antibiotic (no infiltrate on CXR) Chronic Conditions Patient?s care impacted by: Cancer and Other (congestive heart failure and Afib) Discharge Plan Discharge Clinical Impression: Hemoptysis, unspecified Patient Disposition: Home, Self-Care Additional Instructions: do not restart coumadin, must see your doctor tomorrow if possible Prescriptions: No Action omeprazole 20 mg capsule,delayed release(DR/EC) 20 mg PO DAILY warfarin 1 mg tablet PO warfarin 5 mg tablet 500f10 mg PO DAILY metoprolol succinate 25 mg tablet extended release 24 hr 25 mg PO DAILY ferrous sulfate 325 mg (65 mg iron) tablet 325 mg PO BID spironolactone 25 mg tablet 25 mg PO DAILY digoxin 250 mcg (0.25 mg) tablet 0 mcg PO lisinopril 2.5 mg tablet 2.5 mg PO DAILY simvastatin 40 mg tablet 40 mg PO DAILY torsemide 20 mg tablet 20 mg PO BID oxycodone-acetaminophen 5-325 mg tablet PO hydrocodone-acetaminophen 5-325 mg tablet PO lorazepam 1 mg tablet 1 mg PO BID PRN ferrous sulfate 325 mg (65 mg iron) tablet,delayed release (DR/EC) 325 mg PO BID terazosin 10 mg capsule 10 mg PO DAILY 90 Days Qty: 90 3RF Vyndamax 61 mg capsule 61 mg PO DAILY nitroglycerin 0.4 mg tablet, sublingual sublingual Referrals: Physician,Unknown J [Primary Care Provider] - 2 days Print Language: Romansh
[2024-05-24] MEDS: Phytonadione (Vit K1) 5 MG in 0.9 % Sodium Chloride 50 ML 50.5 MG IV (01:46)
[2024-05-24 03:01] VITALS: BP 122/62; PULSE 68; RESP 19; TEMP 36.7; O2SAT 92
[2024-05-24 04:54] LABS: Anion Gap 14 (12-20); Blood Urea Nitrogen 14 mg/dL (9-16); Carbon Dioxide 26 mmol/L (22-29); Chloride 98 mmol/L (96-108); Creatinine Clr Calc Pharmacy 50.1; Estimated Glomerular Filt Rate > 60; Glucose Random 106 mg/dL (60-115); Potassium 3.5 mmol/L (3.3-5.1); Sodium 134 mmol/L (135-145)
[2024-05-24 05:23] LABS: Basophils Percent Auto 0.7 % (0-2); Eosinophils Absolute Auto 0.2 X10*3/uL (0.0-0.4); Eosinophils Percent Auto 3.6 % (0-4); Hematocrit 29.2 % (42.0-52.0); Hemoglobin 9.6 g/dl (14.0-18.0); Imm Gran Abs Auto 0.02 X10*3/uL (0.00-0.03); Imm Gran Pct Auto 0.4 % (0.0-0.4); Lymphocytes Absolute Auto 0.7 X10*3/uL (1.2-4.9); Lymphocytes Percent Auto 15.2 % (20-40); MANUAL DIFF FLAG NO; Mean Corpuscular HGB Conc 32.9 g/dl (31.0-36.0); Mean Corpuscular Hemoglobin 30.9 pg (27.0-33.0); Mean Corpuscular Volume 93.9 fL (80.0-98.0); Mean Platelet Volume 9.5 fL (9.4-12.4); Monocytes Absolute Auto 0.6 X10*3/uL (0.1-1.2); Monocytes Percent Auto 14.3 % (2-11); Neutrophils Percent Auto 65.8 % (45-73); Platelet Count 92 X10*3/uL (160-400); Red Blood Count 3.11 X10*6/uL (4.60-5.80); Red Cell Distribution Width 15.3 % (11.0-16.0); White Blood Count 4.5 X10*3/uL (4.8-10.8)
[2024-05-24 06:13] VITALS: BP 112/61; PULSE 79; RESP 16; TEMP 36.7; O2SAT 94
[2024-05-24 06:46] VITALS: BP 112/61; PULSE 79; RESP 16; TEMP 36.7; O2SAT 94
== END 2024-05-24 06:59 | disposition home or self-care (01) ==
PROVIDERS: Emergency Provider Emergency Medicine
DX: R04.2 Hemoptysis (principal); I51.7 Cardiomegaly; J90 Pleural effusion, not elsewhere classified; Z79.899 Other long term (current) drug therapy; Z87.891 Personal history of nicotine dependence; Z79.01 Long term (current) use of anticoagulants
CPT/HCPCS: 36415; 71046; 80048; 85025; 85610; 96365; 99284; J3430

== ENCOUNTER 2024-07-01 13:14 | Outpatient (AMB) | payer MEDICARE, SELFPAY ==
--- NOTE | 2024-07-01 13:15 | A.OFFVIS_ITS ---
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 Sanket Little is a very pleasant male. He is a patient of Dr. Randle. He is here for further evaluation of the following urologic conditions. ?- lower urinary tract symptoms PVR 25 cc Current primary issue is cardiac related. Has had fluid status management issues. Has been on and off high-dose torsimide and admitted to the hospital. Discussed fluid balance. Amp for 48 oz per day. PSA remains low only needs to be repeated every 2-3 years Well controlled symptoms on terazosin 10 mg Off finasteride NED 1+ Elevated PSA/Abnormal NED:?06/24 CT/PET for laryngeal lesion ?has small hotspot on prostate ?Biopsy with scarring and chronic inflammation - PET change presumed a f alse positive due to inflammatory changes ?Ended up with vocal cord resection last year. Urination doing well with terazosin 10mg ? Laboratory investigations include?a total PSA evaluation ?05/25 1.0 on 5AR, 05/26 2.6 off 5AR, 05/27 1.9, 05/28 2.4, 05/29 1.9, 05/30 1.2, 06/30 0.8 ? Individualized Prostate Cancer Risk Calculator?< 5% high risk.? His prior IPSS was?mild.? Therapeutic plan will be?continued surveillance. [facility] Medical History Recurrent inguinal hernia Pacemaker Right inguinal hernia History of laryngeal cancer Chronic a-fib BPH (benign prostatic hyperplasia) Surgical History History of left knee replacement Family History Father No problems noted. Mother History of hypertension Son No problems noted. Son No problems noted. Daughter No problems noted. Social History Alcohol intake: never Patient Tobacco Use Status: Former Tobacco user Review of Systems Const Denies chills and Denies fever(s) Card Reports no additional complaints and Denies syncope Resp Denies cough GI Denies abdominal pain and Denies heartburn Reports as per HPI and Denies change in libido Neuro Denies syncope Psych Denies change in libido Endo Denies change in libido Physical Exam Const General: cooperative, healthy appearing, comfortable and no acute distress Orientation/consciousness: patient oriented x3 HEENT Face and sinus: Yes normal facial exam Mouth: moist mucous membranes Neck Neck: Yes normal visual inspection, Yes full ROM and Yes trachea midline Chest Chest palpation & inspection: normal inspection of the chest Resp Effort & Inspection: normal respiratory effort, able to speak in complete sentences and no respiratory distress GI Inspection: Yes normal to inspection Back/Spine/Pelvis Cervical Spine: normal cervical lordosis Thoracic/Lumbar Spine: thoracic and lumbar spine normal to inspection Skin General skin exam: no rashes or lesions noted Neuro General: patient oriented x3, gait normal, tone normal and moves all extremities Extrem General: Yes normal to inspection and Yes capillary refill normal Office Procedures Post Void Residual Post Residual Void Post Void Residual (PVR): 27 35212-Jddm Void Residual by ultrasound Assessment & Plan Assessment & Plan (1) BPH (benign prostatic hyperplasia): Code(s): N40.0 - Benign prostatic hyperplasia without lower urinary tract symptoms Category: Medical Qualifiers: Lower urinary tract symptom presence: symptoms present Lower urinary tract symptom detail: weak urinary stream Qualified Code(s): N40.1 - Benign prostatic hyperplasia with lower urinary tract symptoms; R39.12 - Poor urinary stream Plan Twelve month follow-up PVR Orders: Orders AMB Post Void Residual by ultrasound Today N40.1 - Benign prostatic hyperplasia with lower urinary tract symptoms, R39.12 - Poor urinary stream Patient Instructions: Imaging studies, laboratory and physical exam results were discussed and reviewed in detail. No major barriers to patient understanding were identified. An opportunity to ask questions regarding the treatment plan was provided. All questions were answered. The patient expressed understanding and agreement with the above treatment plan. The patient is aware they should contact our office by phone for worsening of their current condition or the appearance of new urologic symptoms. Compliance is encouraged with any medications and followup testing that is ordered. It is a privilege to participate in the urologic care of your patient. If you have any questions or concerns regarding treatment for the above conditions, or other urologic issues, please do not hesitate to contact me. The office telephone contact is [phone]. This note is constructed using voice recognition software. While every effort has been made to ensure accuracy family preservation officer errors may have been included. Yours sincerely, Dr Lawrence Roberts MD, [facility] - Urology Providers of Expert, Compassionate Care for the Genitourinary System Coding Level of Care Code Est Pt Level 4 (81280) Diagnoses Benign prostatic hyperplasia with weak urinary stream N40.1; R39.12 Lower urinary tract symptom presence: symptoms present Lower urinary tract symptom detail: weak urinary stream CPT Codes Post Residual Void - PVR CPT Code: 58093-Ukgc Void Residual by ultrasound ([id number])
== END 2024-07-01 13:45 | disposition home or self-care (01) ==
PROVIDERS: PCP Internal Medicine; Visit Provider Urology
DX: N40.1 Benign prostatic hyperplasia with lower urinary tract symptoms (principal); R39.12 Poor urinary stream
CPT/HCPCS: 99214

== ENCOUNTER → 2024-07-01 13:14 | Outpatient (BNVA) | payer MEDICARE, SELFPAY | PROVIDERS: PCP Internal Medicine; Visit Provider Urology | DX: N40.1 Benign prostatic hyperplasia with lower urinary tract symptoms (principal); R39.12 Poor urinary stream | CPT/HCPCS: 51798; 99212 ==

== ENCOUNTER 2025-02-16 21:48 | Emergency (ER) | payer MEDICARE, SELFPAY ==
--- NOTE | 2025-02-16 | ECG_ITS ---
Test Reason : CHEST DISCOMFORT Blood Pressure : */* mmHG Vent. Rate : 50 BPM Atrial Rate : 42 BPM P-R Int : * ms QRS Dur : 214 ms QT Int : 590 ms P-R-T Axes : * -75 92 degrees QTcB Int : 537 ms Ventricular-paced rhythm Abnormal ECG When compared with ECG of 12-May-2024 23:07, Ventricular-paced rhythm has replaced Atrial fibrillation Referred By: Generic ED Physician Electronically Signed By: FLAVIA MINER MD
--- NOTE | ~2025-02-16 | CT_ITS ---
EXAMINATION: CT LUMBAR SPINE WITHOUT CONTRAST CLINICAL INFORMATION: Severe lower back pain, spinal stenosis DLP: 445 mGY*cm COMPARISON: CT abdomen and pelvis November 25, 2019 TECHNIQUE: Axial CT images were obtained from T11 through the inferior sacrum. Coronal and sagittal reformatted images were generated from the original axial data set. ALARA: The examination used one or more of the following radiation dose reduction techniques: Automated exposure control, iterative reconstruction, and/or adjustment of mA and/or KV. FINDINGS: Severe atherosclerotic calcifications are present in the abdominal aorta and iliac arteries. There is moderate calcification in the proximal femoral arteries. There is a 3 mm nonobstructing stone in the mid right kidney. Low attenuating lesions in the left kidney are consistent with benign simple renal cyst. Focal hypoattenuation in the gallbladder could represent gallstones. Posterior wall of the left acetabulum has been fixed. 2 metal pins are intact without abnormal lucency at bone metal interfaces and are extra-articular. Unchanged. There is low bone mineral density. There is minimal grade 1 anterolisthesis at S1-2. There are fractures involving the sacrum bilaterally, left greater than right. Fracture on the right extends through the upper sacrum into the posterior margin of the right L5-S1 facet joint. Fracture on the left extends from the anterior superior margin and probably into the upper left SI joint and possibly to the lateral S2 neural foramen margin. There are 5 non-rib bearing lumbar segments. CT does not optimally demonstrate disc interspace analysis. T12-L1: Unremarkable L1-L2: Again noted is severe disc space narrowing with endplate osteophytes. There is moderate facet arthropathy. There is no spinal stenosis and mild foraminal narrowing. L2-L3: There is a Schmorl's node in posterior L2 not present on the prior. There is a slightly increased L3 Schmorl's node. There is minimal grade 1 anterolisthesis, increased. There is mild disc space narrowing, increased. There is moderate facet arthropathy, increased. There is probably mild spinal stenosis with moderate right and cori-ec-brhrwnvc left foraminal narrowing. L3-L4: There is minimal grade 1 retrolisthesis, slightly increased. There is mild loss of disc height. There are endplate osteophytes. There is moderate facet arthropathy. There is mild to moderate spinal stenosis and aija-[id number] bilateral foraminal narrowing. L4-L5: There is moderate loss of disc height and L4 Schmorl's node. There is subtle retrolisthesis. Stable. There is moderate facet arthropathy and dblr-[id number] narrowing of the spinal canal. There is moderate bilateral foraminal narrowing. L5-S1: There is broad-based disc bulge without definite spinal stenosis. There is severe facet arthropathy. There is moderate bilateral foraminal narrowing. CT/CT lumbar spine wo IV con IMPRESSION: Sacral insufficiency fracture, left greater than right with grade 1 anterolisthesis at S1-2.. Multilevel degenerative disc disease and facet arthropathy. 3 mm nonobstructing stone in the mid right kidney. Cholelithiasis. Electronically signed by: Philipp Engel MD 02/17/2025 11:22 AM EDT
[2025-02-16 22:09] VITALS: BP 137/108; PULSE 60; O2SAT 97
[2025-02-16 22:18] VITALS: BP 118/56; PULSE 57; RESP 14; TEMP 36.8; BMI 19.9
--- NOTE | 2025-02-16 22:33 | ED.BACK ---
HPI - Back Pain/Injury General Chief Complaint: Back Pain/Injury Stated Complaint: Back pain Time Seen by Provider: 02/16/25 22:31 History of Present Illness ED Provider: antolin HPI Narrative: 75 M p/w L low back pain and radiation to the L leg. uses a walker at baseline. Patient has multiple comorbid conditions including cardiac history. He denies any explicit injury the pain is consistent in character with previous with radiation to the leg. Denies numbness tingling weakness or incontinence. Pain is in the lumbosacral region denies any recent falls he occasionally uses a walker and lives alone. No stairs at home Related Data Home Medications ?Medication ?Instructions ?Recorded ?Confirmed omeprazole 20 mg capsule,delayed 20 mg PO DAILY 07/18/20 02/17/25 release simvastatin 40 mg tablet 40 mg PO QPM 07/18/20 02/17/25 torsemide 20 mg tablet 80 mg PO BID 07/18/20 02/17/25 tafamidis 61 mg capsule (Vyndamax) 61 mg PO DAILY 03/09/24 02/17/25 spironolactone 50 mg tablet 50 mg PO DAILY 07/01/24 02/17/25 Jardiance 10 mg PO DAILY 02/17/25 02/17/25 acetazolamide 250 mg tablet 500 mg PO 2XW 02/17/25 02/17/25 tolvaptan 30 mg PO DAILY 02/17/25 02/17/25 Previous Rx's ?Medication ?Instructions ?Recorded terazosin 10 mg capsule 10 mg PO DAILY 90 days #90 caps 07/01/24 methocarbamol 750 mg tablet 750 mg PO Q8H 3 days #9 tabs 02/17/25 morphine 15 mg immediate release 15 mg PO Q8H PRN pain 3 days #9 02/17/25 tablet tabs Allergies Allergy/AdvReac Type Severity Reaction Status Date / Time No Known Allergies (No Known Allergy Verified 02/16/25 22:23 Allergies*) [facility] Past Medical History Medical History Recurrent inguinal hernia Pacemaker Right inguinal hernia History of laryngeal cancer Chronic a-fib BPH (benign prostatic hyperplasia) Surgical History History of left knee replacement Family History Family History Father No problems noted. Mother History of hypertension Son No problems noted. Son No problems noted. Daughter No problems noted. Social History Social History Alcohol intake: never Patient Tobacco Use Status: Former Tobacco user Advance Directives Date on File: 02/17/25 Physical Exam Vital Signs: Vital Signs: Last Vital Signs Temp 98.0 F 02/17/25 16:57 Pulse 70 02/17/25 16:57 Resp 14 02/17/25 16:57 BP 123/50 L 02/17/25 16:57 Pulse Ox 99 02/17/25 16:57 O2 Del Method Room Air 02/17/25 16:57 BMI result Body Mass Index 19.9 Const: Other: EXAM: Gen: Alert, awake, well appearing, well hydrated. Head: Atraumatic Eyes: Anicteric, Normal conjunctiva. ENT: Moist mucosa, no pallor. ? Neck: Supple. Skin: ?No observable rash or bruising on exposed or examined skin Respiratory: Breathing comfortably, No distress.Clear to auscultation bilaterally, symmetric chest expansion, No wheeze, rales, ronchi. Cardiovascular: Regular rate and rhythm. No murmurs or rub. Well perfused periphery, warm extremities. No edema. ? Abdominal: No FOCAL TENDERNESS. Soft, no objective distension. No palpable masses or obvious organomegaly. ?No guarding, no rebound tenderness or other peritoneal findings. : No flank tenderness. Neuro: Alert. Gross movement of all extremities intact. ?5/5 motor strength bilateral lower extremities proximally and distally. Sensation intact to light touch. No midline spinal tenderness. Psych: Calm. Cooperative. MSK: No grossly visible deformity. Mild to moderate left upper buttock and lumbosacral region tenderness no bruising there Vital signs: See flowsheet Course Reevaluation(s) Reevaluation #1: Time: 08:04 Date: 02/17/25 Provider: KATHLEEN Card Patient in physician observation for case management needs. No acute events reported overnight.? No current issues or complaints. VS stable. PRN morphine ordered for pain. added scheduled tylenol and bowel regimen with initiation of narcotics. med rec pending. Patient is pending placement at facility/pending PT/CM eval. Will continue to monitor. Reevaluation #2: Time: 15:57 Date: 02/17/25 Provider: KATHLEEN Card Physician observation ended at 15:57. Patient has been accepted to [facility] for acute rehab. CT scan showed sacral insufficiency fracture, left greater than right with grade 1 anterior listhesis at S1-S2. There is also multilevel degenerative disc disease and facet arthropathy. Results given to [facility] and patient.. He does not required medical admission to the hospital and is safe for discharge to [facility] for rehab Medications Administered Discontinued Medications Generic Name Dose Route Start Last Admin Trade Name Freq PRN Reason Stop Dose Admin Acetaminophen 975 mg 02/16/25 22:35 02/16/25 23:04 Acetaminophen 325 Mg Tablet PO 02/16/25 22:36 975 mg ONCE ONE Administration Acetaminophen 975 mg 02/17/25 09:00 02/17/25 09:22 Acetaminophen 325 Mg Tablet PO 975 mg Q8H RAKEL Administration Atorvastatin Calcium 20 mg 02/17/25 09:00 02/17/25 09:22 Atorvastatin Calcium 20 Mg Tablet PO 20 mg BEDTIME RAKEL Administration Docusate Sodium 100 mg 02/17/25 09:00 02/17/25 11:15 Docusate Sodium 100 Mg Capsule PO 100 mg BID RAKEL Administration Doxazosin Mesylate 8 mg 02/17/25 09:00 02/17/25 09:23 Doxazosin Mesylate 2 Mg Tablet PO 8 mg DAILY RAKEL Administration Empagliflozin 10 mg 02/17/25 09:00 02/17/25 09:23 Empagliflozin 10 Mg Tablet PO 10 mg DAILY RAKEL Administration Lidocaine 1 patch 02/16/25 22:35 02/16/25 23:05 Lidocaine 4 % Patch Adh..Patch TRANSDERMA 02/16/25 22:36 1 patch ONCE ONE Administration Protocol Methocarbamol 750 mg 02/16/25 22:35 02/16/25 23:05 Methocarbamol 750 Mg Tablet PO 02/16/25 22:36 750 mg ONCE ONE Administration Methocarbamol 750 mg 02/17/25 00:56 02/17/25 08:15 Methocarbamol 750 Mg Tablet PO 750 mg QID PRN Administration Pain, Moderate(Pain Scale 4-6) Morphine Sulfate 15 mg 02/16/25 22:35 02/16/25 23:05 Morphine Sulfate Immed Release 15 Mg Tablet PO 02/16/25 22:36 15 mg ONCE ONE Administration Morphine Sulfate 15 mg 02/17/25 00:56 02/17/25 08:15 Morphine Sulfate Immed Release 15 Mg Tablet PO 15 mg Q4H PRN Administration Breakthrough Pain Pt Owned Med ( 1 each 02/17/25 10:45 02/17/25 11:15 Tafamidis 61mg PO 1 each Capsule) DAILY RAKEL Administration Omeprazole 20 mg 02/17/25 09:00 02/17/25 09:23 Omeprazole 20 Mg Capsule.Dr PO 20 mg DAILY RAKEL Administration Potassium Chloride 40 meq 02/17/25 03:22 02/17/25 03:56 Potassium Chloride Packet 20 Meq Packet PO 02/17/25 03:23 40 meq ONCE ONE Administration Senna 8.6 mg 02/17/25 08:05 02/17/25 09:23 Sennosides 8.6 Mg Tablet PO 8.6 mg DAILY PRN Administration Constipation Spironolactone 50 mg 02/17/25 09:00 02/17/25 09:23 Spironolactone 25 Mg Tablet PO 50 mg DAILY RAKEL Administration Protocol Torsemide 80 mg 02/17/25 09:00 02/17/25 09:18 Torsemide 20 Mg Tablet PO 80 mg BID RAKEL Administration Protocol Medical Decision Making Medical Decision Making [facility] Narrative: This is a 75-year-old male with chronic back pain and multiple comorbid medical conditions with recent back injections he has acute on chronic back pain. No motor weakness was identified he is not incontinent and has no red flag signs or symptoms to suggest cord compression or cauda equina syndrome. There was no fever. Multimodal analgesia attempted. The patient and I had a long discussion and we had him set up for discharge however he did not feel comfortable when getting up for gait assessment to go home. I will put in scheduled analgesia and case management and PT consultation for the morning. Differential Diagnosis Differential Diagnoses: The differential diagnosis associated with the presentation includes Back strain, acute on chronic DJD of the spine, deconditioning, functional back pain Lab Data 02/17/25 01:21 02/17/25 01:21 Labs: Lab Results 02/17/25 02/17/25 Range/Units 01:21 09:05 WBC 8.2 (4.8-10.8) X10*3/uL RBC 3.68 L (4.60-5.80) X10*6/uL Hgb 10.7 L (14.0-18.0) g/dl Hct 32.4 L (42.0-52.0) % MCV 88.0 (80.0-98.0) fL MCH 29.1 (27.0-33.0) pg MCHC 33.0 (31.0-36.0) g/dl RDW 20.2 H (11.0-16.0) % Plt Count 132 L D (160-400) X10*3/uL MPV 9.1 L (9.4-12.4) fL Immature Gran % (Auto) 0.9 H (0.0-0.4) % Neut % (Auto) 75.2 H (45-73) % Lymph % (Auto) 9.2 L (20-40) % [place] % (Auto) 12.0 H (2-11) % Eos % (Auto) 2.3 (0-4) % Baso % (Auto) 0.4 (0-2) % Lymph # (Auto) 0.8 L (1.2-4.9) X10*3/uL [place] # (Auto) 1.0 (0.1-1.2) X10*3/uL Eos # (Auto) 0.2 (0.0-0.4) X10*3/uL Baso # (Auto) 0.0 (0.0-0.2) X10*3/uL Abs Immat Gran (auto) 0.07 H (0.00-0.03) X10*3/uL Absolute Neuts (auto) 6.2 (2.0-8.3) x10*3/uL Absolute Nucleated RBC 0.000 (0.0-0.012) X10*3/uL Nucleated RBC % (auto) 0.0 (0.0-0.2) /100WBC Sodium 133 L (135-145) mmol/L Potassium 3.1 L (3.3-5.1) mmol/L Chloride 96 (96-108) mmol/L Carbon Dioxide 26 (22-29) mmol/L Anion Gap 14 (12-20) BUN 21 H (9-16) mg/dL Creatinine 1.38 (0.5-1.4) mg/dL Estim Creat Clear Calc 44.5 Estimated GFR 50 Random Glucose 116 H (60-115) mg/dL Calcium 9.1 (8.4-10.2) mg/dL Influenza Type A (PCR) NEGATIVE (Negative) Influenza Type B (PCR) NEGATIVE (Negative) RSV RNA Qual (PCR) NEGATIVE (Negative) SARS-CoV-2 RNA (RT-PCR) NEGATIVE (Negative) External Record Review External record reviewed: Outpatient record Outpatient cardiology records from [facility] were reviewed through Inez herrera. 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 Medication list per that note which was 01/23/2025 shows medication list of: Acetaminophen: See Instructions, Take one tablet by mouth at least one hour prior to iron infusion on 12/27 AcetaZOLAMIDE: See Instructions, pt to take 1 tablet ?by mouth on Tuesdays, and Saturdays Ascorbic Acid: 500 mg = 1 tablet, By Mouth, Daily in AM Baclofen: See Instructions, Start by taking half a tablet By Mouth Daily at bedtime and can increase to full tablet at bedtime if needed.... Calcium Carbonate: 600 mg = 1 tablet, By Mouth, Daily in AM DiphenhydrAMINE: See Instructions, Take one tablet by mouth at least one hour prior to iron infusion on 12/27 Docusate: 100 mg, By Mouth, Daily empagliflozin: 10 mg = 1 tablet, By Mouth, Daily in AM, TAKE ONE TABLET BY MOUTH EVERY DAY Famotidine: See Instructions, Take one tablet by mouth at least 1 hour prior to iron infusion on 12/27/24 Miscellaneous Rx (DIURETIC INTERVENTION): See Instructions, Acetazolamine 500mg x 1 dose Omeprazole: 20 mg = 1 tablet, By Mouth, Daily Pantoprazole: 40 mg = 1 tablet, By Mouth, Daily Simvastatin: 20 mg = 1 tablet, By Mouth, Daily at bedtime Sodium Chloride: See Instructions, 5mL via Neb 4 times a day for tracheostoma humidification Spironolactone: 100 mg = 2 tablet, By Mouth, Daily tafamidis: 1 capsule, By Mouth, Daily in AM, WHOLE. Terazosin: 10 mg = 1 capsule, By Mouth, Daily at bedtime Thiamine: 100 mg, By Mouth, Daily at bedtime tolvaptan: 30 mg = 1 tablet, By Mouth, Daily torsemide: See Instructions, take 4 tablets ?twice on day on Thu, thu,fridays, Sundays and 2 tablets ?twice a day on ,, and saturdays Discharge Plan Discharge Clinical Impression: Chronic back pain Patient Disposition: Xfer Inpatient Rehab Fac Transfer Details: [facility] Instructions: Acute Low Back Pain (ED) Additional Instructions: DISCHARGE DIAGNOSES: Back pain no exam findings to suggest acute surgical emergency but unclear cause. HISTORY OF PRESENTATION: ?Acute on chronic back pain EMERGENCY DEPARTMENT COURSE,TESTS, TREATMENTS: While in the ED today you were given multimodal analgesic medications including lidocaine patch, Tylenol, methocarbamol, oral morphine DISCHARGE MEDICATIONS: ?[We have made no changes to your regular medication regimen] we have prescribed brief course of as needed antispasm medicine methocarbamol and a brief course of morphine. Do not take the oxycodone with this. Do not take the baclofen while taking the methocarbamol FOLLOW-UP: ?Call your primary or general physician soon as possible to discuss your symptoms, your ED visit and to discuss follow up plans Call your spine doctor for follow up or seek follow up with a pain management INSTRUCTIONS ?& RETURN PRECAUTIONS: If any symptoms change first call your primary physician, if it is after-hours your primary doctors office should have a provider controller instructor you can speak with. If the symptoms are severe or very concerning to you then call 911 or return to the ED. Return for leg weakness incontinence or other severe symptoms as discussed Matt Moreno MD Emergency Physician [employer] COMPARISON: CT abdomen and pelvis November 25, 2019 TECHNIQUE: Axial CT images were obtained from T11 through the inferior sacrum. Coronal and sagittal reformatted images were generated from the original axial data set. ALARA: The examination used one or more of the following radiation dose reduction techniques: Automated exposure control, iterative reconstruction, and/or adjustment of mA and/or KV. FINDINGS: Severe atherosclerotic calcifications are present in the abdominal aorta and iliac arteries. There is moderate calcification in the proximal femoral arteries. There is a 3 mm nonobstructing stone in the mid right kidney. Low attenuating lesions in the left kidney are consistent with benign simple renal cyst. Focal hypoattenuation in the gallbladder could represent gallstones. Posterior wall of the left acetabulum has been fixed. 2 metal pins are intact without abnormal lucency at bone metal interfaces and are extra-articular. Unchanged. There is low bone mineral density. There is minimal grade 1 anterolisthesis at S1-2. There are fractures involving the sacrum bilaterally, left greater than right. Fracture on the right extends through the upper sacrum into the posterior margin of the right L5-S1 facet joint. Fracture on the left extends from the anterior superior margin and probably into the upper left SI joint and possibly to the lateral S2 neural foramen margin. There are 5 non-rib bearing lumbar segments. CT does not optimally demonstrate disc interspace analysis. T12-L1: Unremarkable L1-L2: Again noted is severe disc space narrowing with endplate osteophytes. There is moderate facet arthropathy. There is no spinal stenosis and mild foraminal narrowing. L2-L3: There is a Schmorl's node in posterior L2 not present on the prior. There is a slightly increased L3 Schmorl's node. There is minimal grade 1 anterolisthesis, increased. There is mild disc space narrowing, increased. There is moderate facet arthropathy, increased. There is probably mild spinal stenosis with moderate right and sluo-gh-wejmgjmy left foraminal narrowing. L3-L4: There is minimal grade 1 retrolisthesis, slightly increased. There is mild loss of disc height. There are endplate osteophytes. There is moderate facet arthropathy. There is mild to moderate spinal stenosis and cztg-sj-ucafkxmq bilateral foraminal narrowing. L4-L5: There is moderate loss of disc height and L4 Schmorl's node. There is subtle retrolisthesis. Stable. There is moderate facet arthropathy and jspi-qc-[id number] narrowing of the spinal canal. There is moderate bilateral foraminal narrowing. L5-S1: There is broad-based disc bulge without definite spinal stenosis. There is severe facet arthropathy. There is moderate bilateral foraminal narrowing. CT/CT lumbar spine wo IV con IMPRESSION: Sacral insufficiency fracture, left greater than right with grade 1 anterolisthesis at S1-2.. Multilevel degenerative disc disease and facet arthropathy. 3 mm nonobstructing stone in the mid right kidney. Cholelithiasis. Prescriptions: New morphine 15 mg tablet 15 mg PO Q8H PRN (Reason: pain) 3 Days Qty: 9 0RF Rx Instructions: Partial Fill upon patient request. methocarbamol 750 mg tablet 750 mg PO Q8H 3 Days Qty: 9 0RF No Action terazosin 10 mg capsule 10 mg PO DAILY 90 Days Qty: 90 3RF Jardiance 10 mg PO DAILY tolvaptan 30 mg PO DAILY acetazolamide 250 mg tablet 500 mg PO 2XW omeprazole 20 mg capsule,delayed release(DR/EC) 20 mg PO DAILY simvastatin 40 mg tablet 40 mg PO QPM torsemide 20 mg tablet 80 mg PO BID Vyndamax 61 mg capsule 61 mg PO DAILY Patient Comments: pt brought from home spironolactone 50 mg tablet 50 mg PO DAILY Referrals: [facility] [Other] Eulogio Baron MD, PhD [Physician] Interventions: ED Discharge Assessment Last Done: 02/17/25 16:57 Discharge Date/Time: 02/17/25 17:00 Print Language: Tajik
--- OUTSIDE RECORDS SUMMARY | 2025-02-16 23:03 | XMS_ITS | Referral Summary ---
Author Organization [facility] Address [address] [place] [address] Care Team Providers Care Tafe Registrar Name Role Phone Felix Randle MD Primary Care Provider Devin lable Allergies Active Allergy Reactions Criticality Noted Date Comments Iron Sucrose Bleeding,Blood pressure, low High 02/24 Medications calcium carbonate (TUMS) 200 mg calcium (500 mg) chewable tablet Chew and swallow 1 tablet by mouth once a day. Active cyclobenzaprine (FLEXERIL) 10 mg tablet Take 10 mg by mouth 3 times a day as needed for muscle spasms. Active digoxin (LANOXIN) 250 mcg (0.25 mg) tablet Take 250 mcg by mouth 3 times a week. THU. THU. AND THURSDAY Active docusate sodium (COLACE) 100 mg capsule Take 100 mg by mouth 2 times a day. Active warfarin (COUMADIN) 5 mg tablet Take 5 mg by mouth daily. Active lisinopriL (PRINIVIL,ZESTR IL) 2.5 mg tablet Take 2.5 mg by mouth once a day. Active magnesium oxide (MAG-OX) 400 mg (241.3 mg mag) tablet Take 400 mg by mouth once a day. Active metoprolol succinate XL (TOPROL XL) 25 mg tablet Take 25 mg by mouth once a day. Active omeprazole OTC (PriLOSEC OTC) 20 mg EC tablet Take 20 mg by mouth once a day. Active simvastatin (ZOCOR) 20 mg tablet Take 20 mg by mouth nightly. Active spironolactone (ALDACTONE) 25 mg tablet Take 25 mg by mouth once a day. Active torsemide (DEMADEX) 20 mg tablet Take 80 mg by mouth once a day. 4 tablets every morning Active ascorbic acid (VITAMIN C) 500 mg tablet Take 500 mg by mouth once a day. Active tafamidis (Vyndamax) 61 mg Take 61 mg by mouth once a day. Active Social History Tobacco Use Types Packs/Day Years Used Date Smoking Tobacco: Former Cigarettes Q uit: 09/07/2018 Smokeless Tobacco: Never Tobacco Cessation:Counseling Given: No Alcohol Use Standard Drinks/Week Comments Not Currently 0 (1 standard drink = 0.6 oz pur e alcohol) Sex and Gender Information Value Date Recorded Sex Assigned at Not on file Legal Sex Male 6:15 AM EDT Gender Identity Not on file Sexual Orientation Not on file Last Filed Vital Signs Vital Sign Reading Time Taken Comments Blood Pressure 104/54 05/29/2023 8:30 AM EDT Pulse 55 05/29/2023 8:30 AM EDT Temperature 36.4 ??C (97.5 ??F) 05/29/2023 8:30 AM ED T Respiratory Rate 14 05/29/2023 8:30 AM EDT Oxygen Saturation 92% 05/29/2023 8:30 AM EDT Inhaled Oxygen Concentration - - Weight 84 kg (185 lb 3.2 oz) 05/29/2023 6:19 AM EDT Height 188 cm (6' 2 ) 05/22/2023 2:09 PM EDT Body Mass Index 23.78 05/22/2023 2:09 PM EDT Plan of Treatment Not on file Medical Devices Implanted Type Area Sleeve Ironer Device Identifier Shelf Expiration Date Model / Serial / Lot Lens Intraocular Biconvex Aspheric Uv Blocking Hydrophobic Acrylic One Piece [id number] [employer] - [id number] - [id number] Implanted:Qty: 1 on 05/29/2023 by Casey Zaman MD at [facility] [employer] 11/24/2026 [id number] / [id number] / [id number] 1 Piece Acrylic Aspheric Iol Implanted:Qty: 1 on 04/17/2023 by Casey Zaman MD at [facility] [employer] 12/29/2026 [id number] / [id number] / Insurance [facility] MCR SUPP AARP MEDICARE Advance Directives Healthcare Agents on File Name Relationship Healthcare Agent [facility] James Meza Other Health Care Agent Care Teams Tafe Registrar Relationship Specialty Start Date End Date Felix Randle MD [address] [facility] [address] [place] [address] PCP - General Internal Medicine 03/06/23
[2025-02-16] MEDS: Acetaminophen 325 MG TABLET 975 MG PO (23:04)
[2025-02-16] MEDS: Morphine Sulfate Immed Release 15 MG TABLET PO (23:05)
[2025-02-16] MEDS: methocarbamoL 750 MG TABLET PO (23:05)
[2025-02-16] MEDS: Lidocaine 4 % Patch ADH..PATCH 1 PATCH TRANSDERMA (23:05)
--- NOTE | 2025-02-16 23:15 | PC.NURSE ---
Pt A&Ox3, BIBA from home, pt reports increased back pain w/ no relief after receiving cortisone shots on 02/09/2025. Pt also reported chest discomfort stating it feels like a flutter denies CP, pt does have a pacemaker located on his right shoulder. Pt reported having a fall earlier in the day around 1300 in the afternoon after feeling off balance w/ his walker, pt denies head strike, blood thinners, LOC . Pt does not use walker @ baseline and reported using the walker recently d/t increased pain and new onset of leg numbness as a result of the back pain. Pt has no SI/HI.
[2025-02-17] VITALS (8 sets, daily range): BP systolic 110–126; BP diastolic 41–56; PULSE 53–70; RESP 13–18; TEMP 36.5–36.7; O2SAT 96–99
--- NOTE | 2025-02-17 01:03 | PC.NURSE ---
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 Pt takes meds whole w/ water and on a regular diet. Pt currently eating sandwich and gingerale. Original Note: Attempted to perform ambulation trial on pt prior to D/C, when pt was sat up in stretcher the pt stated that their left side was Not any better . When assessed if the pt lives at home alone he stated that he does and was asked if he believed tat rehabilitation would be the best option. The pt spoke w/ the provider and confirmed that he is willing to become PT/CM in order to find rehab placement in order to help make himself stronger.
[2025-02-17 01:26] LABS: Basophils Percent Auto 0.4 % (0-2); Eosinophils Absolute Auto 0.2 X10*3/uL (0.0-0.4); Eosinophils Percent Auto 2.3 % (0-4); Hematocrit 32.4 % (42.0-52.0); Hemoglobin 10.7 g/dl (14.0-18.0); Imm Gran Abs Auto 0.07 X10*3/uL (0.00-0.03); Imm Gran Pct Auto 0.9 % (0.0-0.4); Lymphocytes Absolute Auto 0.8 X10*3/uL (1.2-4.9); Lymphocytes Percent Auto 9.2 % (20-40); MANUAL DIFF FLAG NO; Mean Corpuscular Hemoglobin 29.1 pg (27.0-33.0); Mean Platelet Volume 9.1 fL (9.4-12.4); Neutrophils Absolute Auto 6.2 x10*3/uL (2.0-8.3); Neutrophils Percent Auto 75.2 % (45-73); Platelet Count 132 X10*3/uL (160-400); Red Blood Count 3.68 X10*6/uL (4.60-5.80); Red Cell Distribution Width 20.2 % (11.0-16.0); White Blood Count 8.2 X10*3/uL (4.8-10.8)
[2025-02-17 01:41] LABS: Anion Gap 14 (12-20); Blood Urea Nitrogen 21 mg/dL (9-16); Calcium 9.1 mg/dL (8.4-10.2); Carbon Dioxide 26 mmol/L (22-29); Chloride 96 mmol/L (96-108); Creatinine Clr Calc Pharmacy 44.5; Estimated Glomerular Filt Rate 50; Glucose Random 116 mg/dL (60-115); Potassium 3.1 mmol/L (3.3-5.1); Sodium 133 mmol/L (135-145)
[2025-02-17] MEDS: Potassium Chloride Packet 20 MEQ PACKET 40 MEQ PO (03:56)
--- NOTE | 2025-02-17 06:17 | MHC.EDTECH ---
Pt was walked to the bathroom x3. He is a 1 assist
[2025-02-17] MEDS: Morphine Sulfate Immed Release 15 MG TABLET PO (08:15)
[2025-02-17] MEDS: methocarbamoL 750 MG TABLET PO (08:15)
[2025-02-17] MEDS: Torsemide 20 MG TABLET 80 MG PO (09:18)
[2025-02-17] MEDS: Acetaminophen 325 MG TABLET 975 MG PO (09:22)
[2025-02-17] MEDS: Atorvastatin Calcium 20 MG TABLET PO (09:22)
[2025-02-17] MEDS: Sennosides 8.6 MG TABLET PO (09:23)
[2025-02-17] MEDS: Spironolactone 25 MG TABLET 50 MG PO (09:23)
[2025-02-17] MEDS: Doxazosin Mesylate 2 MG TABLET 8 MG PO (09:23)
[2025-02-17] MEDS: Omeprazole 20 MG CAPSULE.DR PO (09:23)
[2025-02-17] MEDS: Empagliflozin 10 MG TABLET PO (09:23)
[2025-02-17 10:00] LABS: Influenza A PCR NEGATIVE (Negative); Influenza B PCR NEGATIVE (Negative); Resp Syncy Virus RNA Qual PCR NEGATIVE (Negative); SARS COV2 PCR INHOUSE NEGATIVE (Negative)
[2025-02-17] MEDS: Docusate Sodium 100 MG CAPSULE PO (11:15)
--- NOTE | 2025-02-17 13:12 | MHC.CM.ED ---
Received case management consult overnight. Patient came to the ER due to back pain. Patient has a history of back pain and received steroid injection on 02/09. Physical therapy eval completed. Rehab is recommended. Patient has not bee inpatient in any facility in the past 30 days. Referral sent to all 3 acute rehabs. [facility] able to offer a bed. [facility] is reviewing to see if they can offer a bed. Continue to monitor for d/c needs.
--- NOTE | 2025-02-17 13:53 | MHC.CM.ED ---
[facility] is able to offer a bed. Patient agreeable. [facility] booked for 430pm. Med nec with chart. Patient, Mónica MERCADO and Sarai WANG aware. Patient's friend/HCP, James, made aware via telephone at [phone] at patient's request. Continue to monitor for d/c needs.
--- NOTE | 2025-02-17 15:50 | PC.NURSE ---
keri aguirre to [facility] RN. pt aware of plan for discharge. meds in pt specific bin returned to him. med list to be sent with paperwork to facility. pt has been getting up throughout the day with his walker to the bathroom, able to make needs known.
== END 2025-02-17 17:00 ==
PROVIDERS: Physician Assistant; Emergency Provider Emergency Medicine; PCP Internal Medicine
DX: M54.50 Low back pain, unspecified (principal); R26.81 Unsteadiness on feet; M48.061 Spinal stenosis, lumbar region without neurogenic claudication; R07.89 Other chest pain; Z03.818 Encounter for observation for suspected exposure to other biological agents ruled out
CPT/HCPCS: 0241U; 36415; 72131; 80048; 85025; 93005; 97162; 99285

== ENCOUNTER → 2025-02-16 22:33 | Outpatient (BNV) | payer MEDICARE, SELFPAY | PROVIDERS: Emergency Provider Emergency Medicine; PCP Internal Medicine; Visit Provider Internal Medicine Cardiovascular Disease | DX: R94.31 Abnormal electrocardiogram [ECG] [EKG] (principal); Z95.0 Presence of cardiac pacemaker | CPT/HCPCS: 93010 ==

== ENCOUNTER → 2025-02-17 10:17 | Outpatient (BNV) | payer MEDICARE, SELFPAY | PROVIDERS: Emergency Provider Emergency Medicine; PCP Internal Medicine; Visit Provider Radiology Diagnostic Radiology | DX: M51.360 Other intervertebral disc degeneration, lumbar region with discogenic back pain only (principal); M47.816 Spondylosis without myelopathy or radiculopathy, lumbar region; K80.20 Calculus of gallbladder without cholecystitis without obstruction; N20.0 Calculus of kidney | CPT/HCPCS: 72131 ==

== ENCOUNTER 2025-03-01 10:54 | Inpatient (IN) | payer MEDICARE, SELFPAY ==
[2025-03-01] VITALS (7 sets, daily range): BP systolic 125–139; BP diastolic 47–62; PULSE 57–92; RESP 15–35; TEMP 36.8–37.1; O2SAT 90–96; BMI 19.1
--- NOTE | ~2025-03-01 | CT_ITS ---
EXAMINATION: CT HEAD WITHOUT CONTRAST CLINICAL INFORMATION: Fall COMPARISON: None available. TECHNIQUE: Contiguous axial imaging was performed from the skull base to vertex without intravenous administration of contrast. This CT examination was performed using dose optimization techniques as appropriate, variously including the following: *Automated exposure control *Adjustment of mA and/or kV according to patient size (this includes techniques or standardized protocols for targeted exams where dose is matched to indication/reason for exam; i.e. extremities or head) *Use of iterative reconstruction technique DLP: 1158 mGY*cm FINDINGS: There is no acute ischemic change. There is no intracranial hemorrhage. There is no mass-effect or midline shift. Basal cisterns and ventricles are within normal limits for age/cerebral volume. Orbits are symmetrical and unremarkable. Paranasal sinuses and mastoid air cells are pneumatized. Degenerative changes are evident at the craniocervical junction. Amorphous calcific density is present in the soft tissues posterior to demonstrate anterior C1-C2 articulation demonstrates narrowing, sclerosis, osteophytes. CT/CT head/brain wo IV con IMPRESSION: No acute intracranial abnormality. 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 Electronically signed by: Philipp Engel MD 03/01/2025 02:58 PM EDT
--- NOTE | ~2025-03-01 | CT_ITS ---
CLINICAL HISTORY: hypoxia CT chest without contrast Comparison: CT/SR - ABDOMEN ABD_PEL_WITHOUT (ADULT) - 03/04/25 15:12 EDT Findings: The thyroid gland appears normal. There is no mediastinal, hilar, or axillary lymphadenopathy. The heart is severely enlarged in size with dilatation of the right atrium and left atrium. Left atrial appendage plug is present. There is no pericardial effusion. Coronary artery calcifications are present. Right lower lobe consolidation is present with central tapering. Acute appearing right 10th-12th rib fractures are present, similar to exam of 03/04/25. Age-indeterminate right lateral 9th and 8th rib fractures are noted. Bilateral gynecomastia is present. Please refer to CT abdomen and pelvis of same day for abdominal findings. IMPRESSION: 1. Severe cardiomegaly with right lower lobe consolidation, similar to exam of 03/04/2025 and likely representing round atelectasis. Pneumonia can not be excluded. 2. Acute appearing right 10th-12th rib fractures, similar to exam of 03/04/2025. This document has been electronically signed by: Nahed Hernandez on 03/12/2025 08:24:36
--- NOTE | ~2025-03-01 | XR_ITS ---
CLINICAL HISTORY: NGT --- Additional Notes or Special Instructions: SAID WILL BE DONE IN THE MORNING ON 03 05 25 7AM--2100 MH Chest radiograph, 1 view Comparison: CR/TN/SR - XR CHEST 2V - 03/01/25 15:09 EDT Findings: The heart is markedly enlarged. Partially imaged right chest dual lead pacemaker. Pulmonary vascularity is unremarkable. No focal consolidation or effusion. No pneumothorax. IMPRESSION: Resolved left basilar airspace disease. This document has been electronically signed by: Jim Donis DO on 03/05/2025 10:44:33
--- NOTE | ~2025-03-01 | CT_ITS ---
CLINICAL HISTORY: diffuse pain CT abdomen and pelvis with contrast Comparison: CT/SR - ABDOMEN ABD_PEL_WITHOUT (ADULT) - 03/04/25 15:12 EDT Findings: Severe cardiomegaly is present with marked enlargement of the left atrium and right atrium. Right lower lobe consolidation is present, similar to prior exam. 1.0 cm simple right hepatic cyst is present. Several additional subcentimeter hepatic hypodensities are too small to characterize. There is mild nodularity of the liver contour. 1.0 cm and 0.8 cm nodules are seen along the gallbladder fundal wall, likely representing polyps. The gallbladder is hydropic, measuring 10.9 cm in length. Vascular calcifications are seen in the right renal pelvis. 1.1 cm simple left renal cyst is present. There is an extrarenal left renal pelvis. The pancreas, spleen, and bilateral adrenal glands appear within normal limits. Multiple dilated loops of small bowel are present containing air-fluid levels. The transition point appears to be at the level of the surgical anastomosis in the right hemipelvis. Mild right mesenteric edema is present adjacent to the surgical anastomosis. Small amount of fluid is also seen in the right hemipelvis. There is no pneumoperitoneum. There has been interval right inguinal hernia repair. Multiple surgical clips are seen in the right anterior pelvic wall with adjacent 3.3 x 1.5 cm subcutaneous fluid collection. The urinary bladder is decompressed by a Weinstein catheter and contains small foci of air. There is no adenopathy. Moderate to severe degenerative changes are seen in the spine. Bilateral sacral ala, S1, and left L3-L5 transverse process fractures are again noted. Remote appearing bilateral rib fractures are present. There has been prior internal fixation of the left posterior acetabulum. IMPRESSION: 1. Interval right inguinal hernia repair. 2. Multiple dilated loops of small bowel containing air-fluid levels. The transition point appears to be at the level of the surgical anastomosis in the right hemipelvis. Findings are suspicious for a small-bowel obstruction. 3. Multiple surgical clips in the right pelvic wall with adjacent 3.3 x 1.5 cm subcutaneous fluid collection, likely representing a seroma. 4. Severe cardiomegaly with right lower lobe consolidation, similar to prior exam and likely representing round atelectasis. 5. Bilateral sacral ala, S1, and left L3-L5 transverse process fractures, similar to prior exam. 6. Other findings as described. This document has been electronically signed by: Nahed Hernandez on 03/12/2025 06:13:50
--- NOTE | ~2025-03-01 | XR_ITS ---
CLINICAL HISTORY: sob 1 view chest x-ray Comparison: CR - XR CHEST 1V - 03/10/25 08:14 EDT Findings: The heart is markedly enlarged in size. Right cardiac pacemaker device and left atrial appendage plug are again noted. Evaluation of the right lung base is limited due to cardiomegaly. The level lung appears clear. No acute fracture. There has been interval removal of the esophagogastric tube. IMPRESSION: Marked cardiomegaly with limited evaluation of the right lung base. The left lung appears clear. This document has been electronically signed by: Nahed Hernandez on 03/12/2025 05:48:35
--- NOTE | ~2025-03-01 | XR_ITS ---
EXAMINATION: XR CHEST CLINICAL INFORMATION: Cough COMPARISON: 05/24/2024. TECHNIQUE: 2 views of the chest were obtained. FINDINGS: Right-sided dual-lead pacer device in place with leads in the right atrium and right ventricle. Marked cardiomegaly again demonstrated with probable massive right atrial enlargement. Left atrial enlargement present as well. Left atrial appendage occlusion device in place. Aortic mural calcifications. Lungs are mildly hyperaerated bilaterally. There is patchy opacity in the left base. There is no pneumothorax or pleural effusion. There is no focal osseous or soft tissue abnormality. XR/XR chest 2V IMPRESSION: 1. Marked cardiomegaly again demonstrated. This is unchanged. 2. Atrial appendage occlusion device in place as well as a dual-lead pacer device. 3. Patchy left basilar opacity suspicious for pneumonia in the appropriate clinical setting. Electronically signed by: Saul Bull MD 03/01/2025 03:20 PM EDT
--- NOTE | ~2025-03-01 | XR_ITS ---
EXAMINATION: XR RIBS, BILATERAL CLINICAL INFORMATION: pain COMPARISON: Chest x-ray from one day ago TECHNIQUE: 3 views of the bilateral ribs were obtained. FINDINGS: Moderate stool and gas is present in the visible portions of the colon. Pacemaker generator projects over the lateral right chest wall. There are 2 leads terminating in the right atrium and right ventricle. There is a left atrial appendage device/occluder. There is cardiomegaly. There appears to be cortical destruction of the lateral right 9-11th ribs. There is deformity with a shift in the contour of the anterior right eighth rib that could represent acute or chronic fracture. XR/XR ribs BI min 4V w CXR1V IMPRESSION: Suspected acute fractures of the lateral right ninth-11th ribs and possibly the anterior right eighth rib. Cardiomegaly. Electronically signed by: Philipp Engel MD 03/02/2025 10:34 AM EDT
--- NOTE | ~2025-03-01 | CT_ITS ---
CLINICAL HISTORY: hernia ?incarcerated? CT abdomen and pelvis without IV or oral contrast Comparison: None Findings: Right basilar atelectasis. Small consolidation right lower lobe with air bronchograms. No dependent layering pleural effusions. Marked cardiomegaly. Dual-chamber pacemaker/ AICD. Calcified coronary artery disease. Probable gynecomastia. No stones are identified in the kidneys, ureters or bladder. There is no hydronephrosis or perinephric stranding/fluid. Well-distended urinary bladder. Probable renal cortical cysts on the left. Renovascular calcifications bilaterally. Evaluation of the liver, spleen, adrenal glands and pancreas demonstrates no lesions. It should be noted that isodense masses may be obscured in the absence of intravenous contrast. No radiopaque gallstones. Heavy stool burden. Distal small bowel obstruction which is complete down to the level of a right inguinal hernia containing a loop of small bowel causing obstruction. Mesenteric edema. Minimal fluid in the hernia sac. No pathologically enlarged lymph nodes. Mild prostatomegaly. Fracture probable old S1 vertebral body. Remaining vertebral body heights are preserved. ORIF screw posterior left acetabulum. Impression: 1. Complete distal small bowel obstruction down to the level of a right inguinal hernia containing a loop of obstructed small bowel with minimal fluid in the hernia sac. No free air or pneumatosis intestinalis. Small-bowel dilatation measuring up to 3.6 cm. 2. Heavy stool burden throughout the colon. 3. Marked cardiomegaly. Minimal pleural-parenchymal disease right lower lobe. This document has been electronically signed by: Fransisco Porter MD on 03/04/2025 17:07:10
--- NOTE | ~2025-03-01 | XR_ITS ---
EXAMINATION: XR HIP, LEFT CLINICAL INFORMATION: fall, pain COMPARISON: CT abdomen and pelvis April 29, 2014 TECHNIQUE: AP pelvis and AP and frog-leg view left hip of the left hip. FINDINGS: Again seen are 2 cortical screws fixing a remote posterior wall acetabulum fracture. Hardware is intact without signs of loosening. Left hip joint space is preserved. No fracture line or cortical offset is identified. There is calcification in the left femoral artery. XR/XR hip LT w [id number] IMPRESSION: Unremarkable left hip. ORIF Left posterior wall acetabular fracture, remote Electronically signed by: Philipp Engel MD 03/02/2025 10:27 AM EDT
--- NOTE | ~2025-03-01 | CT_ITS ---
EXAMINATION: CT LUMBAR SPINE WITHOUT CONTRAST CLINICAL INFORMATION: Fall DLP: 1158 mGY*cm COMPARISON: None available. This CT examination was performed using dose optimization techniques as appropriate, variously including the following: *Automated exposure control *Adjustment of mA and/or kV according to patient size (this includes techniques or standardized protocols for targeted exams where dose is matched to indication/reason for exam; i.e. extremities or head) *Use of iterative reconstruction technique TECHNIQUE: Axial imaging was performed from the thoracolumbar junction to the mid to lower sacrum without IV contrast. Coronal and sagittal reformatted images were generated from the original axial data set. FINDINGS: There is moderate atherosclerotic calcifications aorta and iliac arteries, and SMA. There are 5 non-rib bearing lumbar segments. Again seen is a sacral insufficiency fracture large on the left than on the right side. There is early periosteal new bone formation and early changes of healing. S1-S2 anterolisthesis is stable. Lumbar spine demonstrates extensive degenerative disc disease greatest at L1-2 with multilevel Schmorl's nodes. No fracture are identified. 2 surgical screws fix a healed posterior wall fracture of the left acetabulum. CT/CT lumbar spine wo IV con IMPRESSION: Early healing of a sacral insufficiency fracture with grade 1 anterolisthesis at S1-2. No interval shift. Multilevel degenerative disc disease and facet arthropathy, stable. No new fractures. Electronically signed by: Philipp Engel MD 03/01/2025 03:09 PM EDT
--- NOTE | ~2025-03-01 | XR_ITS ---
CLINICAL HISTORY: Hypoxia 1 view chest x-ray Comparison: Chest x-ray from 03/05/2025 at 7:26 a.m. Findings: Small right pleural effusion with mild right basilar atelectasis/consolidation. Portions of the upper trachea obscured. Right-sided device with leads redemonstrated. No significant change of the imaged mediastinum with cardiomegaly and tortuosity thoracic aorta. Mild emphysematous changes are redemonstrated. No pneumothorax. Degenerative changes include imaged shoulders. IMPRESSION: 1. Small right pleural effusion. 2. Right basilar atelectasis/consolidation. This document has been electronically signed by: Paulo Easley MD on 03/05/2025 19:42:42
--- NOTE | ~2025-03-01 | XR_ITS ---
EXAMINATION: XR CHEST 1 VIEW HISTORY: SOB COMPARISON: Comparison is made with the prior examination dated 03/05/2025. FINDINGS: A single AP portable view of the chest performed at 8:14 AM is submitted. The heart remains markedly enlarged. A left atrial appendage] devices noted.. A right-sided dual-chamber pacemaker is unchanged in position. An orogastric tube is in place with tip and sidehole below the diaphragm. There is limited visualization of the right lung base due to the enlarged cardiac silhouette. The lungs are otherwise clear. There is no pleural effusion, pneumothorax, or pulmonary vascular congestion. There are right lower rib fractures which appear acute as seen on plain films of the ribs dated 03/05/2025. XR/XR chest 1V IMPRESSION: Marked cardiomegaly. Orogastric tube in satisfactory position. No acute cardiopulmonary abnormality. Electronically signed by: Zev Bar MD 03/13/2025 07:23 AM EDT
--- NOTE | ~2025-03-01 | XR_ITS ---
CLINICAL HISTORY: increasing pain --- Additional Notes or Special Instructions: still wanted per provider 1 view abdomen Comparison: CT/SR - CT ABDOMEN PELVIS W IV CON - 03/12/25 04:58 EDT Findings: Two films were obtained. Multiple dilated small bowel loops are again seen. Allowing for modality differences, no significant change in distribution and caliber. Residual contrast in the genitourinary tract from prior CT. Multiple skin jay project over the right inguinal region. There are fixation screws projecting over the left acetabulofemoral joint. A solitary clip projects over the left abdomen. Cardiac pacing wires are partly seen. IMPRESSION: Multiple dilated small bowel loops are grossly unchanged compared to earlier CT. This document has been electronically signed by: Sarah Armas DO on 03/12/2025 15:05:49
--- NOTE | 2025-03-01 11:36 | PC.NURSE ---
Addendum entered by Vale Lu RN 03/01/25 11:37: Patient is 75 M p/w multiple falls. Uses a walker at baseline and lives alone. Patient has multiple comorbid conditions including cardiac history and radiation to his leg. Patient tripped and fell twice today but appears to have had multiple falls. c/o bilat rib and hip pain. Multiple open skin tears and bruising noted to all four extremities. Alert and oriented, appears unkempt. Stoma noted. monitoring and evaluation advisor applied and NSR noted. Lungs essentially clear. Patient dyspneic and tachypneic with the slightest exertion. Abdomen flat, soft, non-tender with positive bowel sounds. Positive pedal pulses with no edema. Original Note: Medical History Recurrent inguinal hernia Pacemaker Right inguinal hernia History of laryngeal cancer Chronic a-fib BPH (benign prostatic hyperplasia)
[2025-03-01 11:38] LABS: MANUAL DIFF FLAG NO
[2025-03-01 11:40] LABS: Hematocrit 33.8 % (42.0-52.0); Hemoglobin 11.6 g/dl (14.0-18.0); Imm Gran Abs Auto 0.32 X10*3/uL (0.00-0.03); Imm Gran Pct Auto 2.6 % (0.0-0.4); Lymphocytes Absolute Auto 0.6 X10*3/uL (1.2-4.9); Mean Corpuscular HGB Conc 34.3 g/dl (31.0-36.0); Mean Corpuscular Hemoglobin 29.7 pg (27.0-33.0); Mean Corpuscular Volume 86.4 fL (80.0-98.0); NRBC Abs Auto 0.000 X10*3/uL (0.0-0.012); NRBC Pct Auto 0.0 /100WBC (0.0-0.2); Platelet Count 179 X10*3/uL (160-400); Red Blood Count 3.91 X10*6/uL (4.60-5.80); White Blood Count 12.2 X10*3/uL (4.8-10.8)
[2025-03-01 11:41] LABS: Appearance Urine Cloudy; Glucose Urine UA 500 mg/dL (Negative); PH 7.5 (5.0-9.0); Specific Gravity - Urine 1.015 (1.005-1.025); UMIC TRIGGER UACC YES
[2025-03-01 11:47] LABS: UACC Culture Trigger YES
[2025-03-01 12:03] LABS: Alanine Aminotransferase 28 U/L (0-40); Albumin Level 4.3 g/dL (3.5-5.0); Alkaline Phosphatase 165 U/L (39-117); Anion Gap 16 (12-20); Aspartate Amino Transferase 48 U/L (5-37); Blood Urea Nitrogen 37 mg/dL (9-16); Calcium 9.4 mg/dL (8.4-10.2); Carbon Dioxide 20 mmol/L (22-29); Chloride 94 mmol/L (96-108); Creatinine Clr Calc Pharmacy 50.0; Estimated Glomerular Filt Rate 60; Potassium 4.7 mmol/L (3.3-5.1); Sodium 125 mmol/L (135-145); Total Protein 7.1 g/dL (6.5-8.0)
[2025-03-01 12:05] LABS: Troponin-I High Sensitivity 29.7 ng/L (<3.5-35.0)
--- NOTE | 2025-03-01 12:48 | ED_ITS ---
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 Patient states that he was recently here for pelvic and back pain then transferred to [facility] rehab. Patient states that he was discharged home from [facility] last night and this morning he fell twice. Patient states that he fell because he is feeling increasingly weaker. Patient denies any head strike, loss of consciousness, dizziness, lightheadedness, abdominal pain, nausea, vomiting, fever, chills, blurry vision, double vision, loss of vision, chest pain, difficulty breathing, shortness of breath, back pain, night sweats, pain with urination, increased urinary frequency, increased urinary urgency, blood in his urine or stool, syncope or a near syncopal episode, bowel incontinence, bladder incontinence, or any other complaints at this time. Related Data Home Medications ?Medication ?Instructions ?Recorded ?Confirmed omeprazole 20 mg capsule,delayed 20 mg PO DAILY 02/17/25 release simvastatin 40 mg tablet 40 mg PO BEDTIME 07/18/20 torsemide 20 mg tablet 80 mg PO BID 07/18/20 tafamidis 61 mg capsule (Vyndamax) 61 mg PO DAILY 11/2802/17/25 spironolactone 50 mg tablet 50 mg PO DAILY 07/01/24 acetazolamide 250 mg tablet 500 mg PO 2XW 02/17/25 calcitonin (salmon) 200 intranasal 03/01/25 unit/actuation nasal spray empagliflozin 10 mg tablet 10 mg PO DAILY 03/01/25 (Jardiance) potassium chloride 20 mEq 20 meq PO DAILY 03/01/25 tablet,extended release pregabalin 150 mg capsule 150 mg PO BID 03/01/25 tolvaptan 30 mg tablet 30 mg PO DAILY 06/25/25 tramadol 50 mg tablet 50 mg PO Q4H PRN Pain Previous Rx's ?Medication ?Instructions ?Recorded terazosin 10 mg capsule 10 mg PO DAILY 90 days #90 c aps 07/01/24 methocarbamol 750 mg tablet 750 mg PO Q8H 3 days #9 ta bs 02/17/25 morphine 15 mg immediate release 15 mg PO Q8H PRN pain 3 days #9 02/17/25 tablet tabs Allergies Allergy/AdvReac Type Severity Reaction Status Date / Time No Known Allergies (No Known Allergy Verified 03/01/25 11:14 Allergies*) Review of Systems 2 Constitutional: Constitutional: Reports no additional constitutional complaints, Denies chills, Denies fever(s), Denies night sweats and Reports weakness Eyes: Eyes: Reports no additional eye complaints, Denies blurry vision, Denies change in vision, Denies diplopia, Denies eye discharge, Denies loss of vision and Denies eye pain ENT: Denies dizziness Cardiovascular: Cardiovascular: Reports no additional cardiovascular complaints, Denies chest pain, Denies lightheadedness, Denies Loss of Consciousness and Denies dyspnea Respiratory: Respiratory: Reports no additional respiratory complaints and Denies dyspnea Gastrointestinal: Gastrointestinal: Reports no additional gastrointestinal complaints, Denies abdominal pain, Denies melena, Denies hematochezia, Denies change in bowel habits and Denies change in stool character Genitourinary: Genitourinary: Reports no additional male genitourinary complaints, Denies hematuria, Denies oliguria, Denies difficulty urinating, Denies dysuria, Denies urinary frequency, Denies urinary hesitancy, Denies urinary incontinence and Denies urinary urgency Musculoskeletal: Musculoskeletal: Reports no additional musculoskeletal complaints, Denies numbness and Denies tingling Neurologic: Denies dizziness, Denies loss of vision, Denies numbness, Denies tingling and Reports weakness Psychiatric: Psychiatric: Reports no additional psychiatric complaints Endocrine: Endocrine: Reports no additional endocrine complaints Hematologic/Lymphatic: Hematologic/Lymphatic: Reports no additional hematologic/lymphatic complaints Allergic/Immunologic: Allergic/Immunologic: Reports no additional allergic/immunologic complaints PMFSH Past Medical History Attestation statement: The following information was validated with the patient. Source: old records reviewed and nursing notes reviewed Medical History Recurrent inguinal hernia Pacemaker Right inguinal hernia History of laryngeal cancer Chronic a-fib BPH (benign prostatic hyperplasia) Surgical History History of left knee replacement Family History Family History Father No problems noted. Mother History of hypertension Son No problems noted. Son No problems noted. Daughter No problems noted. Social History Social History Alcohol intake: never Patient Tobacco Use Status: Former Tobacco user Advance Directives Date on File: 02/17/25 Physical Exam ED Vital Signs: Vital Signs - 24 hr 03/01/25 11:10 03/01/25 11:16 03/01/25 13:24 Temperature 98.7 F Pulse Rate 77 68 68 Respiratory Rate 25 H 35 H 15 Blood Pressure 132/56 L 125/58 L 139/59 L Pulse Oximetry 91 L 93 96 Oxygen Delivery Method Room Air Room Air Trach Collar Oxygen Flow Rate 5 BMI result Body Mass Index 19.1 Const General: cooperative, no acute distress, alert and awake Nutritional Appearance: well nourished Orientation/consciousness: patient oriented x3 HENMT Head: Yes normal to inspection and Yes atraumatic Ears: hearing grossly normal bilaterally and external ears normal General nose exam: Normal external nose present, no nasal discharge noted and no epistaxis Face and sinus: Yes normal facial exam, No abrasion and No laceration Mouth: Normal oral and palatal mucosa present, no drooling and no muffled voice Eyes General: appearance normal, both eyes and all related structures Periorbital: periorbital findings normal Eyelids: Yes eyelids normal Conjunctivae: conjunctivae normal Pupils: Equal, round and reactive pupils present EOM: EOMs intact bilaterally Neck Other: larynectomy - stoma present with mucous Neck: Yes full ROM and Yes no lymphadenopathy Resp Effort & Inspection: normal respiratory effort and able to speak in complete sentences Neuro General: patient oriented x3, moves all extremities and CN's II-XI intact bilaterally Cranial nerves: Yes Equal, round and reactive pupils present Cognition (Neuro): normal cognition Extrem Other: covered skin abrasions on the bilateral upper extremities new bilateral lower leg skin abrasion - no gaping, no active bleeding General: Yes full ROM and Yes capillary refill normal Psych Appearance: grossly normal Mental Status: mental status grossly normal Affect: normal affect Attitude: cooperative Thought process: Normal thought process present Thought content: Normal thought content present Insight: Good insight present (Psych) Medications Administered Generic Name Dose Route Start Last Admin Trade Name Freq PRN Reason Stop Dose Admin Enoxaparin Sodium 40 mg 03/01/25 15:00 03/01/25 15:45 Enoxaparin Sodium 40 Mg/0.4 Ml Syringe SUBCUT Not Given Q24H RAKEL Morphine Sulfate 1 mg 03/01/25 14:40 03/01/25 17:21 Morphine Sulfate 4 Mg/Ml Cartridge IVPUSH 1 mg Q6H PRN Administration Pain, Severe (Pain Scale 7-10) Protocol Sodium Chloride 3 ml 03/01/25 16:00 03/01/25 15:40 0.9 % Sodium Chloride Flush 3 Ml Syringe IVFLUSH 3 ml QSHIFT RAKEL Administration Discontinued Medications Generic Name Dose Route Start Last Admin Trade Name Freq PRN Reason Stop Dose Admin Ceftriaxone Sodium 1 gm 03/01/25 12:59 03/01/25 13:33 Ceftriaxone Sodium 1 Gm Vial IVPUSH 03/01/25 13:00 1 gm ONCE ONE Administration Medical Decision Making Medical Decision Making MDM Narrative: Patient is a 75 year old assigned male at with a 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 Patient's physical exam was as noted in the physical exam portion of this note. Patient's blood work showed hyponatremia with a sodium of 125 and an elevated WBC count of 12.2. Patient's urine showed an acute UTI. Patient's chest x-ray showed a possible left lower lobe pneumonia. I explained my physical exam findings as well as all test results to the patient. I answered all questions asked by the patient. I spoke to the hospitalist service who requested a CT head and CT lumbar spine be performed. Both were performed and both were negative for any acute process. Hospitalist team agreed to admission. Patient's clinical presentation was nost consistent with sepsis (@1300). Patient received IV ceftriaxone for his UTI and pneumonia. Patient verbalized agreement and understanding with this treatment plan and discharge. Differential Diagnosis Differential Diagnoses: The differential diagnosis associated with the presentation includes Hyponatremia UTI Pneumonia Admission/Observation Consideration of admission/observation: Escalation of care including admission/observation considered Patient admitted as noted in the MDM rationale portion of this note. Consult Healthcare Provider Management of the patient was discussed with: Hospitalist (requested a CT head and CT lumbar spine be performed and agreed to admission as noted in the MDM Rationale portion of this note. ) Lab Data [facility] Lab Attestation statement: I reviewed the patient's lab results. My interpretation of these results are in the MDM Rationale portion of this note. 03/01/25 11:29 03/01/25 11:29 Labs: Lab Results 03/01/25 03/01/25 Range/Units 11:29 13:21 WBC 12.2 H (4.8-10.8) X10*3/uL RBC 3.91 L (4.60-5.80) X10*6/uL Hgb 11.6 L (14.0-18.0) g/dl Hct 33.8 L (42.0-52.0) % MCV 86.4 (80.0-98.0) fL MCH 29.7 (27.0-33.0) pg MCHC 34.3 (31.0-36.0) g/dl RDW 20.2 H (11.0-16.0) % Plt Count 179 D (160-400) X10*3/uL MPV 10.1 (9.4-12.4) fL Immature Gran % (Auto) 2.6 H (0.0-0.4) % Neut % (Auto) 83.6 H (45-73) % Lymph % (Auto) 4.9 L (20-40) % Harmon % (Auto) 8.5 (2-11) % Eos % (Auto) 0.2 (0-4) % Baso % (Auto) 0.2 (0-2) % Lymph # (Auto) 0.6 L (1.2-4.9) X10*3/uL Harmon # (Auto) 1.0 (0.1-1.2) X10*3/uL Eos # (Auto) 0.0 (0.0-0.4) X10*3/uL Baso # (Auto) 0.0 (0.0-0.2) X10*3/uL Abs Immat Gran (auto) 0.32 H (0.00-0.03) X10*3/uL Absolute Neuts (auto) 10.2 H (2.0-8.3) x10*3/uL Absolute Nucleated RBC 0.000 (0.0-0.012) X10*3/uL Nucleated RBC % (auto) 0.0 (0.0-0.2) /100WBC Sodium 125 L (135-145) mmol/L Potassium 4.7 D (3.3-5.1) mmol/L Chloride 94 L (96-108) mmol/L Carbon Dioxide 20 L (22-29) mmol/L Anion Gap 16 (12-20) BUN 37 H (9-16) mg/dL Creatinine 1.18 (0.5-1.4) mg/dL Estim Creat Clear Calc 50.0 Estimated GFR 60 Random Glucose 116 H (60-115) mg/dL Osmolality 267 L (281-305) mosm/kg Lactic Acid 1.5 (0.5-2.0) mmol/L Calcium 9.4 (8.4-10.2) mg/dL Total Bilirubin 1.4 H (0.0-1.0) mg/dL AST 48 H (5-37) U/L ALT 28 (0-40) U/L Alkaline Phosphatase 165 H (39-117) U/L Troponin I High Sens 29.7 (<3.5-35.0) ng/L Total Protein 7.1 (6.5-8.0) g/dL Albumin 4.3 (3.5-5.0) g/dL Urine Color Yellow Urine Appearance Cloudy Urine pH 7.5 (5.0-9.0) Ur Specific [place] 1.015 (1.005-1.025) Urine Protein Negative (Neg-Trace) mg/dL Urine Glucose (UA) 500 H (Negative) mg/dL Urine Ketones Negative (Negative) mg/dL Urine Blood Trace H (Negative) Urine Nitrite Negative (Negative) Ur Leukocyte Esterase Large (3+) H (Negative) Urine RBC 0-2 (0-2) /HPF Urine WBC >50 H (0-5) /HPF Ur Squamous Epith Cells 0-2 (0-2) /HPF Urine Bacteria Trace (None Seen) Hyaline Casts 0-2 (0-2) /LPF Urine Osmolality 273 L (373-1093) mosm/kg Independent Interpretation I performed an independent interpretation of an: Plain X-Ray and CT Scan Interpretation: My interpretation is in agreement with the radiologist's impression of these imaging studies. L Report Number: [id number]: Total DLP = 1158.00 mGy-cm EXAMINATION: CT HEAD WITHOUT CONTRAST CLINICAL INFORMATION: Fall COMPARISON: None available. TECHNIQUE: Contiguous axial imaging was performed from the skull base to vertex without intravenous administration of contrast. This CT examination was performed using dose optimization techniques as appropriate, variously including the following: *Automated exposure control *Adjustment of mA and/or kV according to patient size (this includes techniques or standardized protocols for targeted exams where dose is matched to indication/reason for exam; i.e. extremities or head) *Use of iterative reconstruction technique DLP: 1158 mGY*cm FINDINGS: There is no acute ischemic change. There is no intracranial hemorrhage. There is no mass-effect or midline shift. Basal cisterns and ventricles are within normal limits for age/cerebral volume. Orbits are symmetrical and unremarkable. Paranasal sinuses and mastoid air cells are pneumatized. Degenerative changes are evident at the craniocervical junction. Amorphous calcific density is present in the soft tissues posterior to demonstrate anterior C1-C2 articulation demonstrates narrowing, sclerosis, osteophytes. CT/CT head/brain wo IV con IMPRESSION: No acute intracranial abnormality. 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 Electronically signed by: Philipp Engel MD 03/01/2025 02:58 PM EDT Dictated By: Philipp Engel MD Signed By: Electronically signed by Philipp Engel MD 03/01/25 1458 EXAMINATION: XR CHEST CLINICAL INFORMATION: Cough COMPARISON: 05/24/2024. TECHNIQUE: 2 views of the chest were obtained. FINDINGS: Right-sided dual-lead pacer device in place with leads in the right atrium and right ventricle. Marked cardiomegaly again demonstrated with probable massive right atrial enlargement. Left atrial enlargement present as well. Left atrial appendage occlusion device in place. Aortic mural calcifications. Lungs are mildly hyperaerated bilaterally. There is patchy opacity in the left base. There is no pneumothorax or pleural effusion. There is no focal osseous or soft tissue abnormality. XR/XR chest 2V IMPRESSION: 1. Marked cardiomegaly again demonstrated. This is unchanged. 2. Atrial appendage occlusion device in place as well as a dual-lead pacer device. 3. Patchy left basilar opacity suspicious for pneumonia in the appropriate clinical setting. Electronically signed by: Saul Bull MD 03/01/2025 03:20 PM EDT RP Dictated By: Saul Bull MD Signed By: Electronically signed by Saul Bull MD 03/01/25 1520 Report Number: [id number]: Total DLP = 0.00 mGy-cm EXAMINATION: CT LUMBAR SPINE WITHOUT CONTRAST CLINICAL INFORMATION: Fall DLP: 1158 mGY*cm COMPARISON: None available. This CT examination was performed using dose optimization techniques as appropriate, variously including the following: *Automated exposure control *Adjustment of mA and/or kV according to patient size (this includes techniques or standardized protocols for targeted exams where dose is matched to indication/reason for exam; i.e. extremities or head) *Use of iterative reconstruction technique TECHNIQUE: Axial imaging was performed from the thoracolumbar junction to the mid to lower sacrum without IV contrast. Coronal and sagittal reformatted images were generated from the original axial data set. FINDINGS: There is moderate atherosclerotic calcifications aorta and iliac arteries, and SMA. There are 5 non-rib bearing lumbar segments. Again seen is a sacral insufficiency fracture large on the left than on the right side. There is early periosteal new bone formation and early changes of healing. S1-S2 anterolisthesis is stable. Lumbar spine demonstrates extensive degenerative disc disease greatest at L1-2 with multilevel Schmorl's nodes. No fracture are identified. 2 surgical screws fix a healed posterior wall fracture of the left acetabulum. CT/CT lumbar spine wo IV con IMPRESSION: Early healing of a sacral insufficiency fracture with grade 1 anterolisthesis at S1-2. No interval shift. Multilevel degenerative disc disease and facet arthropathy, stable. No new fractures. Electronically signed by: Philipp Engel MD 03/01/2025 03:09 PM EDT RP Dictated By: Philipp Engel MD Signed By: Electronically signed by Philipp Engel MD 03/01/25 1509 Radiology Impression Discussion of test interpretation with radiology: I have reviewed the radiologist's reading. Independent Historian Clinical information obtained from an independent historian. History obtained from or confirmed by: EMS (EMS provided additional history and confirmed the history provided by the patient. ) Critical Care Time Critical Care Time Critical Care Time: Yes Total Critical Care Time: 39 Attestation: I spent 39 minutes of Critical Care Time with this patient. This does not include time spent on separately reported billable procedures. Discharge Plan Discharge Clinical Impression: Hyponatremia, Urinary tract infection, Pneumonia, Physical deconditioning Patient Disposition: Admitted As Inpatient Interventions: Admission Worksheet (ED) Last Done: 03/01/25 16:15 Discharge Date/Time: 03/01/25 17:05
--- NOTE | 2025-03-01 13:15 | PC.RT ---
Rt called to ER for pt with open stoma by nursing. The pt is awake and coop. LS coarse bilat Rhonchi. Pt stoma sxn for copious thick green secreations, PA is aware. RT set pt up with 28% cool mist post sxn. Nurse and PA aware. bPt is in no current resp distress.
--- OUTSIDE RECORDS SUMMARY | 2025-03-01 14:10 | XMS_ITS | Encounter Summary ---
Author Organization [facility] Address [id number] [place] [id number] Care Team Providers Care Technology Engineer Name Role Phone Felix Randle MD Primary Care Provider [phone] Encounter Details Date Type Department Care Team (Late st Contact Info) Description 02/23/2025 Lab Requisition [facility] - Main Lab [address] [place] [address] Lala Low MD [address] [place] [address] Encounter for other general examination Social History Tobacco Use Types Packs/Day Years Used Date Smoking Tobacco: Never Assessed Sex and Gender Information Value Date Recorded Sex Assigned at Not on file Legal Sex Male 9:47 AM EST Gender Identity Not on file Sexual Orientation Not on file documented as of this encounter Plan of Treatment Not on file documented as of this encounter Procedures Procedure Name Priority Date/Time Associated Diagnosis Comments COMPLETE BLOOD COUNT Routine 02/23/2025 6:40 AM EDT Encounter for other general examination BASIC METABOLIC PANEL Routine 02/23/2025 6:40 AM EDT Encounter for other general examination documented in this encounter Results * (ABNORMAL) Complete blood count (02/23/2025 6:40 AM EDT) WBC 10.5 4.8 - 10.8 [facility] LAB HEMETOLOGY METHOD 02/23/2025 11:09 AM EDT [facility] RBC 4.10(L) 4.50 - 5.50 [facility] LAB HEMETOLOGY METHOD 02/23/2025 11:09 AM [facility] Hemoglobin 11.8(L) 13.5 - 17.5 g/dL LAB HEMETOLOGY METHOD 02/23/2025 11:09 AM [facility] Hematocrit 37.3(L) 42.0 - 54.0 % LAB HEMETOLOGY METHOD 02/23/2025 11:09 AM [facility] MCV 91.9 79.0 - 98.0 FL LAB HEMETOLOGY METHOD 02/23/2025 11:09 AM [facility] MCH 29.1 27.0 - 32.0 pcg LAB HEMETOLOGY METHOD 02/23/2025 11:09 AM [facility] MCHC 31.6(L) 32.0 - 37.0 g/dL LAB HEMETOLOGY METHOD 02/23/2025 11:09 AM [facility] RDW 19.9(H) 11.0 - 15.0 % LAB HEMETOLOGY METHOD 02/23/2025 11:09 AM [facility] Platelets 194 130 - 400 K/mcL LAB HEMETOLOGY METHOD 02/23/2025 11:09 AM [facility] MPV 9.4 7.0 - 11.0 FL LAB HEMETOLOGY METHOD 02/23/2025 11:09 AM [facility] NRBC 0.0 <1.0 % LAB HEMETOLOGY METHOD 02/23/2025 11:09 AM [facility] NRBC Absolute 0.00 <0.10 K/mcL LAB HEMETOLOGY METHOD 02/23/2025 11:09 AM [facility] Blood Venous blood specimen / Unknown Venipuncture / Unknown 02/23/2025 6:40 AM EDT 02/23/2025 10:06 AM EDT us Lala Low MD LAB BLOOD ORDERABLES Final Resu lt [facility] [address] [place] [address], * (ABNORMAL) Basic metabolic panel (02/23/2025 6:40 AM EDT) Sodium 125(L) 133 - 145 mmol/L LAB CHEMISTRY METHOD 02/23/2025 11:56 AM EDT [facility] Potassium 5.2 3.5 - 5.5 mmol/L LAB CHEMISTRY METHOD 02/23/2025 11:56 AM T [facility] Chloride 92(L) 96 - 110 mmol/L LAB CHEMISTRY METHOD 02/23/2025 11:56 AM [facility] CO2 21 21 - 32 mmol/L LAB CHEMISTRY METHOD 02/23/2025 11:56 AM [facility] Anion Gap 12(H) 3 - 11 LAB CHEMISTRY METHOD 02/23/2025 11:56 AM [facility] Glucose 69(L) 70 - 100 mg/dL LAB CHEMISTRY METHOD 02/23/2025 11:56 AM [facility] BUN 41(H) 5 - 25 mg/dL LAB CHEMISTRY METHOD 02/23/2025 11:56 AM [facility] Creatinine 1.21 0.70 - 1.30 mg/dL LAB CHEMISTRY METHOD 02/23/2025 11:56 AM [facility] eGFR 62 >=60 mL/min/1. 73m2 LAB CHEMISTRY METHOD 02/23/2025 11:56 AM [facility] Comment:Calculation based on the Chronic Kidney Disease Epidemiology Collaboration (CKD-EPI) equation refit without adjustment for race. BUN/Creatinine Ratio 33.9 LAB CHEMISTRY METHOD 02/23/2025 11:56 AM [facility] Calcium 10.0 8.5 - 10.5 mg/dL LAB CHEMISTRY METHOD 02/23/2025 11:56 AM EDT [facility] Blood Venous blood specimen / Unknown Venipuncture / Unknown 02/23/2025 6:40 AM EDT 02/23/2025 10:06 AM EDT us Lala Low MD LAB BLOOD ORDERABLES Final Resu lt [facility] [address] [place] [address], documented in this encounter Visit Diagnoses Diagnosis Encounter for other general examination documented in this encounter Care Teams Technology Engineer Relationship Specialty Start Date End Date Felix Randle MD [address] [facility] [address] [place], [place] PCP - General Internal Medicine 06/24/12 documented as of this encounter
[2025-03-01 14:14] LABS: Osmolality, Serum 267 mosm/kg (281-305)
--- NOTE | 2025-03-01 14:22 | PM.IMHP ---
History of Present Illness Date of Service: 03/01/25 Chief Complaint: Hyponatremia, UTI 75-year-old male with past medical history of laryngeal cancer, status post laryngectomy and radical neck dissection surgery in 2019, persistent AFib, CAD, status post PCI 1993 to , history of chronic heart failure with preserved ejection fraction, cardiomyopathy, sacral insufficiency fracture, BPH, pacemaker presented to the ED after falls x2. Patient was here earlier this month on the 12th after a fall he had a CT scan that showed sacral insufficiency fracture, he did not require a medical admission, and he was discharged to [facility] for rehab. Patient reports that he was discharged from rehab yesterday afternoon. He fell when he got home reaching for an object, he went to bed and slept most of the night, woke up at 05:00, and had another fall. He denies any head strike with either fall. Reports that he was on the ground for approximately 1 hour. His cardiology team did not hear from him and were unable to reach him so they called 911 and he was brought here for further care. Patient has several skin tears and abrasions to his arms and legs, several bruises to his arms. He is reporting lower back pain bilaterally. Has range of motion of bilateral lower legs however when he raised his legs he reports pain in his back. In the ED he was found to have leukocytosis of 12.2 with a left shift of 83.6, slightly anemic 11.6 and 33.8 at baseline. Sodium was 125 with a BUN of 37. Osmolality 267. Patient received a dose of IV ceftriaxone in the ED. Patient reports that he has not eaten since 11:00 yesterday. Review of Systems Review of Systems: Denies any shortness of breath, chest pain, dizziness, lightheadedness, abdominal pain or discomfort, nausea vomiting or diarrhea. N/T to left leg at baseline since last fall. [facility] Medical History Recurrent inguinal hernia Pacemaker Right inguinal hernia History of laryngeal cancer Chronic a-fib BPH (benign prostatic hyperplasia) Family History Father No problems noted. Mother History of hypertension Son No problems noted. Son No problems noted. Daughter No problems noted. Surgical History History of left knee replacement Social History Alcohol intake: never Patient Tobacco Use Status: Former Tobacco user Advance Directives: Yes Advance Directives on File: Yes Advance Directives Date on File: 02/17/25 Meds Allergies Allergy/AdvReac Type Severity Reaction Status Date / Time No Known Allergies (No Known Allergy Verified 03/01/25 11:14 Allergies*) Home Medications ?Medication ?Instructions ?Recorded ?Confirmed ?Last Taken ?Type omeprazole 20 mg capsule,delayed 20 mg PO DAILY 07/18/20 02/17/25 Unknown History release simvastatin 40 mg tablet 40 mg PO BEDTIME 07/18/20 02/17/25 Unknown History torsemide 20 mg tablet 80 mg PO BID 07/18/20 02/17/25 Unknown History tafamidis 61 mg capsule (Vyndamax) 61 mg PO DAILY 03/09/24 02/17/25 Unknown History spironolactone 50 mg tablet 50 mg PO DAILY 07/01/24 02/17/25 Unknown History acetazolamide 250 mg tablet 500 mg PO 2XW 02/17/25 02/17/25 Unknown History calcitonin (salmon) 200 intranasal 03/01/25 Unknown History unit/actuation nasal spray empagliflozin 10 mg tablet 10 mg PO DAILY 03/01/25 Unknown History (Jardiance) potassium chloride 20 mEq 20 meq PO DAILY 03/01/25 Unknown History tablet,extended release pregabalin 150 mg capsule 150 mg PO BID 03/01/25 Unknown History tolvaptan 30 mg tablet 30 mg PO DAILY 03/01/25 Unknown History tramadol 50 mg tablet 50 mg PO Q4H PRN Pain 03/01/25 Unknown History Physical Exam Vital Signs and Narrative: Vital Signs: Last Vital Signs Temp 98.7 F 03/01/25 11:10 Pulse 68 03/01/25 13:24 Resp 15 03/01/25 13:24 BP 139/59 L 03/01/25 13:24 Pulse Ox 96 03/01/25 13:24 O2 Del Method Trach Collar 03/01/25 13:24 O2 Flow Rate 5 03/01/25 13:24 BMI result Body Mass Index 19.1 CONST: Alert and oriented, in NAD. Well nourished HEENT: Normocephalic, atraumatic, MMM, Eyes clear, Neck supple RESP: Lungs clear, RRR even and regular HEART:,RRR, S1, S2. No murmur, no edema GI:Abdomen Soft NT, ND. + BS times four :Deferred SKIN: Warm dry and intact, Multiple skin tears bruising and abrasions upper and lower extremities NEURO:CN II-XII Intact bilaterally, Sensation intact. Speech clear PSYCH: Normal affect Results Labs 03/01/25 11:29 03/01/25 11:29 Labs: Laboratory Results - last 24 hr 03/01/25 03/01/25 11: 13:21 MCV 86.4 MCH 29.7 MCHC 34.3 RDW 20.2 H Plt Count 179 D MPV 10.1 Immature Gran % (Auto) 2.6 H Neut % (Auto) 83.6 H Lymph % (Auto) 4.9 L Titus % (Auto) 8.5 Eos % (Auto) 0.2 Baso % (Auto) 0.2 Lymph # (Auto) 0.6 L Titus # (Auto) 1.0 Eos # (Auto) 0.0 Baso # (Auto) 0.0 Abs Immat Gran (auto) 0.32 H Absolute Neuts (auto) 10.2 H Absolute Nucleated RBC 0.000 Nucleated RBC % (auto) 0.0 Anion Gap 16 Estim Creat Clear Calc 50.0 Estimated GFR 60 Random Glucose 116 H Osmolality 267 L Lactic Acid 1.5 Calcium 9.4 Total Bilirubin 1.4 H AST 48 H ALT 28 Alkaline Phosphatase 165 H Troponin I High Sens 29.7 Total Protein 7.1 Albumin 4.3 Urine Color Yellow Urine Appearance Cloudy Urine pH 7.5 Ur Specific [place] 1.015 Urine Protein Negative Urine Glucose (UA) 500 H Urine Ketones Negative Urine Blood Trace H Urine Nitrite Negative Ur Leukocyte Esterase Large (3+) H Urine RBC 0-2 Urine WBC >50 H Ur Squamous Epith Cells 0-2 Urine Bacteria Trace Hyaline Casts 0-2 Assessment and Plan (1) Hyponatremia: Status: Acute Plan Hyponatremia Multifactorial, likely due to poor po intake, multiple diuretics. Follow labs, Hold diuretics for today BUN 37- Patient with poor po since yesterday Multiple Falls/FTT Patient admitted to the ED in January 16, discharged to [facility]hab. Discharged yesterday. Back to the ED today after he sustained two falls. Head CT with no acute abnormalities. 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 Known Sacral Fracture/Low back pain Lumbar CT with no new fractures and Early healing of sacral insufficiency fracture t. Pain management and PT . GERD Continue Prilosec BPH Followed by Urology outpatient Continue Terazosin CODE Status:FULL CODE VTE Prophylaxis: Lovenox Quality Stroke Does the patient have a stroke diagnosis?: No VTE Prior VTE?: No VTE Risk Level:: Medical - moderate - high VTE Device Contraindication: Treatment Not Indicated VTE Drug Contraindication: N/A - Med Ordered
[2025-03-01] MEDS: 0.9 % Sodium Chloride Flush 3 ML SYRINGE IVFLUSH ×2 (15:40→23:41)
--- NOTE | 2025-03-01 18:10 | PHA.MEDREC ---
Addendum entered by Michaela Rider RPh 03/01/25 19:16: REVIEWED BY [facility] Original Note: Pharmacy Consult ? Medication Reconciliation Pharmacy has completed the medication reconciliation. Spoke with pt and he confirmed his medications. Pt confirmed he is taking his Morphine daily and states he is taking 5mg daily of that. Pt states his Insight Director stopped his Pregabalin 150mg tab a while back but states he is not taking that anymore; despite claims showing 75mg caps were last filled 02/06/2025 for 30 and 150mg caps were last filled 02/27/2025 for 30 days. Pt confirmed he is taking his Spironolactone 50mg tab BID now and stating he has always taken it like that; looking in claims it looks like the pt was taking Spironolactone 25mg tabs (2 tabs QD or 1 tab BID) were last filled 11/14/2024 for a QTY 60 for 30 days. Pt states he tried taking the Torsemide 20mg tabs but he was having problems taking that.
[2025-03-02] MEDS: Morphine Sulfate Immed Release 15 MG TABLET PO (01:47)
[2025-03-02 03:55] VITALS: BP 147/65; PULSE 60; RESP 16; TEMP 36.6; O2SAT 93
[2025-03-02 06:01] LABS: MANUAL DIFF FLAG NO
[2025-03-02 06:20] LABS: Hematocrit 33.1 % (42.0-52.0); Hemoglobin 11.0 g/dl (14.0-18.0); Imm Gran Abs Auto 0.22 X10*3/uL (0.00-0.03); Imm Gran Pct Auto 2.6 % (0.0-0.4); Lymphocytes Absolute Auto 0.8 X10*3/uL (1.2-4.9); Mean Corpuscular HGB Conc 33.2 g/dl (31.0-36.0); Mean Corpuscular Hemoglobin 28.9 pg (27.0-33.0); Mean Corpuscular Volume 87.1 fL (80.0-98.0); NRBC Abs Auto 0.000 X10*3/uL (0.0-0.012); NRBC Pct Auto 0.0 /100WBC (0.0-0.2); Platelet Count 157 X10*3/uL (160-400); Red Blood Count 3.80 X10*6/uL (4.60-5.80); White Blood Count 8.6 X10*3/uL (4.8-10.8)
[2025-03-02 06:34] LABS: Anion Gap 15 (12-20); Blood Urea Nitrogen 29 mg/dL (9-16); Calcium 9.6 mg/dL (8.4-10.2); Carbon Dioxide 24 mmol/L (22-29); Chloride 93 mmol/L (96-108); Creatinine Clr Calc Pharmacy 61.5; Estimated Glomerular Filt Rate > 60; Potassium 3.6 mmol/L (3.3-5.1); Sodium 128 mmol/L (135-145)
[2025-03-02 07:46] VITALS: BP 154/67; PULSE 61; RESP 16; TEMP 36.9; O2SAT 94
--- NOTE | 2025-03-02 08:36 | P.PNIM_ITS ---
Subjective Subjective Date of Service: 03/02/25 Interval History: Patient admitted for recurrent falls. UTI, found to have PNA. Today he is reporting left hip pain, and bilateral rib pain. Found to have Right lateral 9th-11th ribs and possible anterior eigth rib fracture. Reports that he ambulated in hallway last evening and today he is having difficulty ambulating due to hip pain. He is eating and drinking. Review of Systems Denies any shortness of breath, chest pain, dizziness, lightheadedness, abdominal pain or discomfort, nausea vomiting or diarrhea. + RIB and Left hip and back pain. Physical Exam 2 Vital Signs: Vital Signs: Last Vital Signs Temp 98.4 F 03/02/25 07:46 Pulse 61 03/02/25 07:46 Resp 16 03/02/25 07:46 BP 154/67 H 03/02/25 07:46 Pulse Ox 94 03/02/25 07:46 O2 Del Method Room Air 03/02/25 07:46 O2 Flow Rate 5 03/01/25 13:24 BMI result Body Mass Index 19.1 CONST: Alert and oriented, in NAD. Well nourished. Thin HEENT: Normocephalic, atraumatic, MMM, Eyes clear, Neck supple RESP: Lungs clear, RRR even and regular HEART:,RRR, S1, S2. No murmur, no edema GI:Abdomen Soft NT, ND. + BS times four :Deferred SKIN: Warm dry and intact, Multiple skin tears bruising and abrasions upper and lower extremities. Dressings intact. NEURO:CN II-XII Intact bilaterally, Sensation intact. Speech clear PSYCH: Normal affect Const: Other: EXAM: Gen: Alert, awake, well appearing, well hydrated. Head: Atraumatic Eyes: Anicteric, Normal conjunctiva. ENT: Moist mucosa, no pallor. ? Neck: Supple. Skin: ?No observable rash or bruising on exposed or examined skin Respiratory: Breathing comfortably, No distress.Clear to auscultation bilaterally, symmetric chest expansion, No wheeze, rales, ronchi. Cardiovascular: Regular rate and rhythm. No murmurs or rub. Well perfused periphery, warm extremities. No edema. ? Abdominal: No FOCAL TENDERNESS. Soft, no objective distension. No palpable masses or obvious organomegaly. ?No guarding, no rebound tenderness or other peritoneal findings. : No flank tenderness. Neuro: Alert. Gross movement of all extremities intact. ?5/5 motor strength bilateral lower extremities proximally and distally. Sensation intact to light touch. No midline spinal tenderness. Psych: Calm. Cooperative. MSK: No grossly visible deformity. Mild to moderate left upper buttock and lumbosacral region tenderness no bruising there Vital signs: See flowsheet Objective Data Active Medications Acetaminophen (Acetaminophen 325 Mg Tablet) 650 mg PO Q6H PRN PRN Reason: Pain, Mild 1-3,fever,headache Albuterol/Ipratropium (Albuterol/Iprat 2.5/0.5mg 3 Ml Ampul.Neb) 3 ml INHALE Q4H PRN PRN Reason: Shortness of Breath/Wheezing Calcium Carbonate (Calcium Carbonate 750 Mg Tab.Chew) 750 mg PO Q4H PRN PRN Reason: Heartburn Ceftriaxone Sodium (Ceftriaxone Sodium 1 Gm Vial) 1 gm IVPUSH Q24H [facility] Docusate Sodium (Docusate Sodium 100 Mg Capsule) 100 mg PO BID [facility] Last Admin: 03/01/25 22:11 Dose: Not Given Documented By: MYAH Non-Admin Reason: Patient Refused Enoxaparin Sodium (Enoxaparin Sodium 40 Mg/0.4 Ml Syringe) 40 mg SUBCUT Q24H [facility] Last Admin: 03/01/25 15:45 Dose: Not Given Documented By: SIMIN Non-Admin Reason: Patient Refused Magnesium Hydroxide (Milk Of Magnesia 30 Ml Oral.Susp) 30 ml PO DAILY PRN PRN Reason: Constipation Melatonin (Melatonin 3 Mg Tablet) 6 mg PO BEDTIME PRN PRN Reason: Insomnia Morphine Sulfate (Morphine Sulfate 4 Mg/Ml Cartridge) 1 mg IVPUSH Q6H PRN; Protocol PRN Reason: Pain, Severe (Pain Scale 7-10) Last Admin: 03/02/25 05:54 Dose: 1 mg Documented By: MYAH Ondansetron HCl (Ondansetron Hcl 4 Mg/2 Ml Vial) 4 mg IVPUSH Q8H PRN PRN Reason: Nausea and Vomiting Oxycodone HCl (Oxycodone Hcl Immed Release 5 Mg Tablet) 5 mg PO Q4H PRN PRN Reason: Pain, Moderate(Pain Scale 4-6) Sodium Chloride (0.9 % Sodium Chloride Flush 3 Ml Syringe) 3 ml IVFLUSH QSHIFT [facility] Last Admin: 03/01/25 23:41 Dose: 3 ml Documented By: MYAH Labs 03/02/25 05:28 03/02/25 05:28 Labs: Laboratory Results - last 24 hr 03/01/25 03/01/25 03/01/25 11:29 13:21 14:42 MCV 86.4 MCH 29.7 MCHC 34.3 RDW 20.2 H Plt Count 179 D MPV 10.1 Immature Gran % (Auto) 2.6 H Neut % (Auto) 83.6 H Lymph % (Auto) 4.9 L [place] % (Auto) 8.5 Eos % (Auto) 0.2 Baso % (Auto) 0.2 Lymph # (Auto) 0.6 L [place] # (Auto) 1.0 Eos # (Auto) 0.0 Baso # (Auto) 0.0 Abs Immat Gran (auto) 0.32 H Absolute Neuts (auto) 10.2 H Absolute Nucleated RBC 0.000 Nucleated RBC % (auto) 0.0 Anion Gap 16 Estim Creat Clear Calc 50.0 Estimated GFR 60 Random Glucose 116 H Osmolality 267 L Lactic Acid 1.5 Calcium 9.4 Total Bilirubin 1.4 H AST 48 H ALT 28 Alkaline Phosphatase 165 H Total Creatine Kinase 168 Troponin I High Sens 29.7 Total Protein 7.1 Albumin 4.3 Urine Color Yellow Urine Appearance Cloudy Urine pH 7.5 Ur Specific [place] 1.015 Urine Protein Negative Urine Glucose (UA) 500 H Urine Ketones Negative Urine Blood Trace H Urine Nitrite Negative Ur Leukocyte Esterase Large (3+) H Urine RBC 0-2 Urine WBC >50 H Ur Squamous Epith Cells 0-2 Urine Bacteria Trace Hyaline Casts 0-2 Urine Osmolality 273 L 03/02/25 05:28 MCV 87.1 MCH 28.9 MCHC 33.2 RDW 18.7 H Plt Count 157 L MPV 9.7 Immature Gran % (Auto) 2.6 H Neut % (Auto) 71.6 Lymph % (Auto) 9.3 L [place] % (Auto) 14.2 H Eos % (Auto) 1.9 Baso % (Auto) 0.4 Lymph # (Auto) 0.8 L [place] # (Auto) 1.2 Eos # (Auto) 0.2 Baso # (Auto) 0.0 Abs Immat Gran (auto) 0.22 H Absolute Neuts (auto) 6.1 Absolute Nucleated RBC 0.000 Nucleated RBC % (auto) 0.0 Anion Gap 15 Estim Creat Clear Calc 61.5 Estimated GFR > 60 Random Glucose 102 Osmolality Lactic Acid Calcium 9.6 Total Bilirubin AST ALT Alkaline Phosphatase Total Creatine Kinase Troponin I High Sens Total Protein Albumin Urine Color Urine Appearance Urine pH Ur Specific [place] Urine Protein Urine Glucose (UA) Urine Ketones Urine Blood Urine Nitrite Ur Leukocyte Esterase Urine RBC Urine WBC Ur Squamous Epith Cells Urine Bacteria Hyaline Casts Urine Osmolality Assessment and Plan (1) Urinary tract infection: Status: Acute (2) Pneumonia: Status: Acute Plan 75-year-old male with past medical history of chronic hyponatremia, CKD, multiple falls, acute on chronic back pain, sacral fracture, BPH, heart failure with perserved ejection fraction, CAD, AFib, laryngeal cancer with resection and stoma, GERD presented to ED shortly after discharge from [facility] rehab with 2 falls. He was found to have hyponatremia, UTI, pneumonia, failure to thrive at home. Acute on chronic back pain. He is admitted for further management. Hyponatremia/CKD Stage 2 Multifactorial, likely due to poor po intake prior to admit- Chronic hyponatremia Sodium improved. BUN improving. Recent DC from Rehab BUN/CR 39/1.12 Today 29/0.96 On Tolvaptan for chronic hyponatremia. Patient to bring in from home. Left lower lobe PNA Chest Xray demonstrated Left basilar PNA Continue Ceftriaxone- Start Doxycycline UDN as needed Leukocytosis resolved Multiple Falls/FTT/Acute on chronic back pain/Known sacral fracture Patient admitted to the ED in January 16, discharged to [facility] rehab. 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 Steroid injections on February 09. Followed by [facility] outpatient. While at [facility] course complicated by pain management. He was discharged on following regime. Morphine ER 15 mgs BID, Lyrica 150 mgs BID and Robaxin every 8 hours. Will continue this regime. DC IV Morphine. Short term course of Oxycodone due to recent falls. So far, no new fractures identified. Head CT with no acute abnormalities. Lumbar CT with no new fractures and Early healing of sacral insufficiency fracture. Reported Left hip pain and rib pain this morning. Left hip Xray unremarkable Suspected acute fractures of the lateral right ninth-11th ribs and possibly the anterior right eighth rib. Incentive spirometry. Physical therapy eval and treat, pain management Case management for Dispo UTI History of BPH Urinalysis with evidence of UTI-Awaiting CX Continue ceftriaxone. 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 Will resume Also on Jardiance, simvastatin Home meds tafamidis- Unavailable here No acute exacerbation BNP 169 today Laryngeal CA S/P resection with Stoma UDN as needed for SOB Follows Yearly with oncology GERD Continue Prilosec BPH Followed by Urology outpatient Continue Terazosin CODE Status: FULL CODE VTE Prophylaxis: Lovenox Quality Stroke Does the patient have a stroke diagnosis?: No VTE Prior VTE?: No VTE Risk Level:: Medical - moderate - high VTE Device Contraindication: Treatment Not Indicated VTE Drug Contraindication: N/A - Med Ordered
[2025-03-02] MEDS: oxyCODONE HCl Immed Release 5 MG TABLET PO ×2 (08:39→17:41)
[2025-03-02 09:24] LABS: B Type Natriuretic Peptide 169 pg/mL (<100)
[2025-03-02 09:25] VITALS: BP 123/58; PULSE 84
--- NOTE | 2025-03-02 09:30 | P.CONNP_ITS ---
History of Present Illness Reason for Consult Consult date: 03/02/25 Chief Complaint Chief complaint: UTI, Hyponatremia History of Present Illness Narrative: 75 y/o male with chronic hyponatremia, CKD, multiple falls, acute on chronic back pain, sacral fracture, BPH, heart failure with preserved ejection fraction, CAD, AFib, laryngeal cancer with resection and stoma, GERD presented to ED shortly after discharge from [facility] with 2 falls. He was found to have hyponatremia, UTI, pneumonia, failure to thrive at home. Nephrology consulted for hyponatremia. serum sodium level 125 on 03/01, 03/02 is 128. 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 states his sodium is usually around 130. patient came in with acute on chronic back pain. urine osm 273. pt states he has back pain. otherwise no acute complaints. Review of Systems Constitutional: Reports no additional constitutional complaints Cardiovascular: Denies chest pain, Denies leg edema and Denies dyspnea Respiratory: Denies dyspnea Gastrointestinal: Denies abdominal pain, Denies diarrhea, Denies nausea and Denies vomiting Genitourinary: Denies hematuria, Denies oliguria, Denies dysuria and Denies flank pain Musculoskeletal: Reports back pain Skin/Breast: Denies rash PMFSH Past Medical History Medical History Recurrent inguinal hernia Pacemaker Right inguinal hernia History of laryngeal cancer Chronic a-fib BPH (benign prostatic hyperplasia) Family History Family History Father No problems noted. Mother History of hypertension Son No problems noted. Son No problems noted. Daughter No problems noted. Surgical History Surgical History History of left knee replacement Social History Social History Household Members: None Housing: House Alcohol intake: never Patient Tobacco Use Status: Former Tobacco user Advance Directives Date on File: 02/17/25 Meds Allergies Allergy/AdvReac Type Severity Reaction Status Date / Time No Known Allergies (No Known Allergy Verified 03/01/25 11:14 Allergies*) Active Medications: Current Medications Acetaminophen (Acetaminophen 325 Mg Tablet) 650 mg PO Q6H PRN PRN Reason: Pain, Mild 1-3,fever,headache Acetazolamide (Acetazolamide 250 Mg Tablet) 125 mg PO MoWeFr [facility] Albuterol/Ipratropium (Albuterol/Iprat 2.5/0.5mg 3 Ml Ampul.Neb) 3 ml INHALE Q4H PRN PRN Reason: Shortness of Breath/Wheezing Atorvastatin Calcium (Atorvastatin Calcium 20 Mg Tablet) 20 mg PO DAILY [facility] Last Admin: 03/02/25 10:19 Dose: 20 mg Calcium Carbonate/Cholecalciferol (Calcium + Vitamin D 250 Mg Tablet) 500 mg PO BIDWM [facility] Ceftriaxone Sodium (Ceftriaxone Sodium 1 Gm Vial) 1 gm IVPUSH Q24H [facility] Doxazosin Mesylate (Doxazosin Mesylate 2 Mg Tablet) 8 mg PO DAILY [facility] Last Admin: 03/02/25 10:18 Dose: 8 mg Doxycycline Monohydrate (Doxycycline Monohydrate 100 Mg Capsule) 100 mg PO Q12H [facility] Last Admin: 03/02/25 10:18 Dose: 100 mg Empagliflozin (Empagliflozin 10 Mg Tablet) 10 mg PO DAILY [facility] Last Admin: 03/02/25 10:18 Dose: 10 mg Enoxaparin Sodium (Enoxaparin Sodium 40 Mg/0.4 Ml Syringe) 40 mg SUBCUT Q24H [facility] Last Admin: 03/01/25 15:45 Dose: Not Given Magnesium Hydroxide (Milk Of Magnesia 30 Ml Oral.Susp) 30 ml PO DAILY PRN PRN Reason: Constipation Melatonin (Melatonin 3 Mg Tablet) 6 mg PO BEDTIME PRN PRN Reason: Insomnia Methocarbamol (Methocarbamol 750 Mg Tablet) 750 mg PO TID [facility] Morphine Sulfate (Morphine Sulfate Er 15 Mg Tablet.Er) 15 mg PO Q12H [facility] Last Admin: 03/02/25 10:19 Dose: 15 mg Non-Formulary Medication (Tolvaptan) 30 mg PO DAILY [facility] Non-Formulary Medication (Tafamidis [Vyndamax]) 61 mg PO DAILY [facility] Omeprazole (Omeprazole 20 Mg Capsule.Dr) 20 mg PO DAILY@0630 [facility] Last Admin: 03/02/25 10:18 Dose: 20 mg Ondansetron HCl (Ondansetron Hcl 4 Mg/2 Ml Vial) 4 mg IVPUSH Q8H PRN PRN Reason: Nausea and Vomiting Oxycodone HCl (Oxycodone Hcl Immed Release 5 Mg Tablet) 5 mg PO Q6H PRN PRN Reason: Pain, Moderate(Pain Scale 4-6) Polyethylene Glycol (Polyethylene Glycol 3350 17 Gm Powd.Pack) 17 gm PO DAILY [facility] Pregabalin (Pregabalin 150 Mg Capsule) 150 mg PO BID [facility] Senna/Docusate Sodium (Sennosides/Docusate Sodium Tablet) 2 tab PO DAILY [facility] Sodium Chloride (0.9 % Sodium Chloride Flush 3 Ml Syringe) 3 ml IVFLUSH QSHIFT [facility] Last Admin: 03/02/25 08:42 Dose: Not Given Spironolactone (Spironolactone 25 Mg Tablet) 50 mg PO DAILY [facility]; Protocol Torsemide (Torsemide 20 Mg Tablet) 80 mg PO BID [facility]; Protocol Home Medications ?Medication ?Instructions ?Recorded ?Confirmed ?Last Taken ?Type omeprazole 20 mg capsule,delayed 20 mg PO DAILY@0630 1 09/17/19 03/01/25 Unknown History release simvastatin 40 mg tablet 40 mg PO BEDTIME 07/18/20 Unknown History tafamidis 61 mg capsule (Vyndamax) 61 mg PO DAILY 11/2803/01/25 Unknown History spironolactone 50 mg tablet 50 mg PO BID 07/01/2402/06 Unknown History empagliflozin 10 mg tablet 10 mg PO DAILY 03/01/25 Unknown History (Jardiance) morphine 15 mg tablet,extended 15 mg PO BID 03/01/25 0 03/01/25 Unknown History release tolvaptan 30 mg tablet 30 mg PO DAILY 03/01/2502/06 Unknown History tramadol 50 mg tablet 50 mg PO Q4H PRN Pain 03/01/25 Unknown History Physical Exam Vital Signs: Last Vital Signs Temp 98.4 F 03/02/25 07:46 Pulse 84 03/02/25 09:25 Resp 16 03/02/25 07:46 BP 123/58 L 03/02/25 09:25 Pulse Ox 94 03/02/25 07:46 O2 Del Method Room Air 03/02/25 07:46 O2 Flow Rate 5 03/01/25 13:24 BMI result Body Mass Index 19.1 Const General: no acute distress, alert and awake Resp Effort & Inspection: normal respiratory effort and able to speak in complete sentences Auscultation: clear to auscultation bilaterally Cardio Rate: regular rate Rhythm: regular rhythm Heart sounds: S1 normal heart sound present and S2 normal heart sound present GI Palpation (GI): Soft to palpation and nontender General: Yes no CVA tenderness Back/Spine/Pelvis Back: no CVA tenderness Skin Rashes: no rashes Extrem General: No edema Results Lab Results 03/02/25 05:28 03/02/25 05:28 Lab results: Chemistry 03/01/25 03/02/25 11:29 05:28 Sodium 125 L 128 L Potassium 4.7 D 3.6 D Carbon Dioxide 20 L 24 BUN 37 H 29 H Creatinine 1.18 0.96 Calcium 9.4 9.6 Hematology 03/01/25 03/02/25 11:29 05:28 WBC 12.2 H 8.6 Hgb 11.6 L 11.0 L Plt Count 179 D 157 L Urinalysis 03/01/25 11:29 Urine Color Yellow Urine Appearance Cloudy Urine pH 7.5 Ur Specific [place] 1.015 Urine Protein Negative Urine Glucose (UA) 500 H Urine Ketones Negative Urine Blood Trace H Urine Nitrite Negative Ur Leukocyte Esterase Large (3+) H Urine RBC 0-2 Urine WBC >50 H Ur Squamous Epith Cells 0-2 Hyaline Casts 0-2 Urine Studies 03/01/25 11:29 Urine Osmolality 273 L Assessment and Plan (1) Hyponatremia: Status: Acute Plan Hyponatremia likely multifactorial has chronic hyponatremia, may be secondary to heart failure; acute hyponatremia likely SAIDH stimulated from acute back pain recommend 1.2L fluid restriction, no indication for urea/salt tablets at this time continue supportive care Discussed with Dr Osborn. Procedures Date of Service Date of Service: 03/02/25
[2025-03-02] MEDS: Morphine Sulfate ER 15 MG TABLET.ER PO ×2 (10:19→20:44)
--- NOTE | 2025-03-02 10:52 | PC.NURSE ---
1030- patient requesting to be suctioned. RT at bedside performed suction. Thick secretions removed. Patient tolerated well.
--- NOTE | 2025-03-02 13:47 | PM.EVENT ---
Event Note Date of Service: 03/02/25 Event Note: Left hip x-ray noted to be negative, suspected acute fractures of the lateral 9th through 11th ribs and right 8th rib. Continue incentive spirometry and pain management. Patient was also seen by Nephrology, 1200 cc fluid restriction. Time Spent With Patient Time: Total time managing care of this patient today ____ minutes.
[2025-03-02 15:51] VITALS: BP 127/58; PULSE 52; RESP 16; TEMP 36.2; O2SAT 94
--- NOTE | 2025-03-02 16:29 | HE.CSO ---
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
--- NOTE | 2025-03-02 16:56 | HO.WOUND ---
Wound Consult: Initial 75 yr old?[place] [facility] [place] See progress notes and H&P for detailed history.? Wound consult placed for Skin tears to multiple sites.? Patient agreeable to assessment and photo documentation.? Patient reports recent falls. Of note patient appears malnourished and mildly cachexia noted - direct care nurse reports she already placed nutrition consult. Patient reports he is agreeable to ensure drinks. Right Arm Right Wrist Bilateral Legs Etiology: Skin Tears s/p falls at home??Present on Admission Wound Bed: open partial thickness tissue loss wound beds with some slough noted in some placed. relatively clean wound beds Drainage / Odor: serosang drainage Edges: ? irregular -when flaps present reapproximated Maribell wound: Bruising noted ? No Induration, Fluctuance or Warmth noted Pain: tenderness reported Goals of Treatment: ? moist wound healing with xeroform and discontinue adhesive to skin Sacrum - intact blanchable redness noted - patient does report some tenderness - bony prominence and minimal tissue and muscle over bony areas. Foam dressing agreeable to patient and applied. Educated on the importance of repositions @ 2 hrs. Recommendations: 1. Turn and Reposition every 2 hours and as needed for patient comfort.? Use pillows or wedges to support off loading positions. 2. Off Load all bony prominences with use of pillows and heel boots if needed.? Apply Preventative foams where needed. ? 3. Monitor for incontinence and moisture control, use barrier creams when needed for prevention and treatment. 4. Provide adequate and supplemental nutrition.? 5. Order low air loss mattress. 6. When applicable maintain blood glucose levels per Providers order. Sacrum - Off Load Pressure with Q2 hr turns and use of pillows - Routine cleansing.? Apply skin prep allow to dry.? Cover with foam dressing to aid in off loading and protection from friction. Change every 5 days and PRN. Waffle cushion to recliner chair when up to chair. Skin Tear Sites (Right Arm, Wrist and Left Leg) - Per Protocol ?- Cleanse with normal saline, pat dry. ?Apply Xeroform secure with Abd pads, gauze wrap and tape. Change Daily. ?Do not apply tape to patient?s skin.? Avoid Adhesive application to skin - when necessary, apply skin prep prior.? Re-consult wound care Nurse for wound deterioration or wound changes.
[2025-03-02] MEDS: Calcium + Vitamin D 250 MG TABLET 500 MG PO (17:38)
[2025-03-02 19:30] VITALS: BP 119/56; PULSE 53; RESP 17; TEMP 36.3; O2SAT 94
[2025-03-02 20:44] VITALS: BP 119/56
[2025-03-02] MEDS: 0.9 % Sodium Chloride Flush 3 ML SYRINGE IVFLUSH (20:46)
[2025-03-03 03:56] VITALS: BP 130/58; PULSE 80; RESP 17; TEMP 36.7; O2SAT 93
[2025-03-03 06:35] LABS: Anion Gap 13 (12-20); Blood Urea Nitrogen 20 mg/dL (9-16); Calcium 9.1 mg/dL (8.4-10.2); Carbon Dioxide 23 mmol/L (22-29); Chloride 97 mmol/L (96-108); Creatinine Clr Calc Pharmacy 71.1; Estimated Glomerular Filt Rate > 60; Potassium 3.4 mmol/L (3.3-5.1); Sodium 130 mmol/L (135-145)
[2025-03-03 07:54] VITALS: BP 149/65; PULSE 57; RESP 16; TEMP 37; O2SAT 93
[2025-03-03] MEDS: Calcium + Vitamin D 250 MG TABLET 500 MG PO (08:29)
[2025-03-03] MEDS: Morphine Sulfate ER 15 MG TABLET.ER PO ×2 (08:30→20:31)
[2025-03-03] MEDS: VYNDAMAX 61 MG 1 EACH PO (08:31)
[2025-03-03] MEDS: TOLVAPTAN 30 MG 1 EACH PO (08:31)
[2025-03-03] MEDS: 0.9 % Sodium Chloride Flush 3 ML SYRINGE IVFLUSH ×3 (08:57→20:48)
--- NOTE | 2025-03-03 11:27 | P.PNNP_ITS ---
Subjective Subjective Date of Service: 03/03/25 Interval history: following for hyponatremia- acute on chronic sodium 130 today, which is baseline for pt he denies new concerns/symptoms at this time Physical Exam 2 Vital Signs: Vital Signs: Last Vital Signs Temp 98.6 F 03/03/25 07:54 Pulse 57 03/03/25 07:54 Resp 16 03/03/25 07:54 BP 149/65 H 03/03/25 07:54 Pulse Ox 93 03/03/25 07:54 O2 Del Method Room Air 03/03/25 07:54 O2 Flow Rate 5 03/01/25 13:24 BMI result Body Mass Index 19.1 Const: General: no acute distress, alert and awake Resp: Effort & Inspection: normal respiratory effort and able to speak in complete sentences Auscultation: clear to auscultation bilaterally Cardio: Rate: regular rate Rhythm: regular rhythm Heart sounds: S1 normal heart sound present and S2 normal heart sound present GI: Palpation (GI): Soft to palpation and nontender : General: Yes no CVA tenderness Back/Spine/Pelvis: Back: no CVA tenderness Skin: Rashes: no rashes Extrem: General: No edema Objective Data Labs 03/02/25 05:28 03/03/25 05:45 Labs: Laboratory Results - last 24 hr 03/03/25 05:45 Sodium 130 L Potassium 3.4 Chloride 97 Carbon Dioxide 23 Anion Gap 13 BUN 20 H Creatinine 0.83 Estim Creat Clear Calc 71.1 Estimated GFR > 60 Random Glucose 109 Calcium 9.1 Microbiology Microbiology Results: Microbiology 03/01/25 Unknown Urine clean catch - Clean Catch Midstream Urine Culture - Final Enterococcus faecalis 03/01/25 13:21 Blood - Venous Blood Culture - Preliminary No growth after 24 hours. 03/01/25 13:21 Blood - Venous Blood Culture - Preliminary No growth after 24 hours. Procedures Date of Service Date of Service: 03/03/25 Assessment & Plan Assessment and plan (1) Hyponatremia: Status: Acute Plan Hyponatremia likely multifactorial has chronic hyponatremia, may be secondary to heart failure; acute hyponatremia likely SAIDH stimulated from acute back pain patient's sodium level is back to baseilne recommend continued fluid restriction- 1.5L/24 hours, no indication for urea/salt tablets at this time continue supportive care Discussed with Dr Goldberg Time Spent With Patient Time: Total time managing care of this patient today ____ minutes. Progress Note: Quality Stroke Does the patient have a stroke diagnosis?: No
[2025-03-03] MEDS: oxyCODONE HCl Immed Release 5 MG TABLET PO (11:45)
[2025-03-03 12:22] VITALS: BP 149/65; PULSE 57; O2SAT 93
--- NOTE | 2025-03-03 13:55 | MHC.CM.PN ---
EMR REVIEWED AND PER MD ROUNDS, PT WILL BE EVALUATED BY P.T. TO DETERMINE DC DISPO. PER P.T., RECOMMENDATION IS ACUTE REHAB, REFERRALS SENT, AWAITING RESPONSE.
--- NOTE | 2025-03-03 14:53 | PM.DS ---
DS: Providers Provider Date of Service: 03/03/25 Date of admission: 03/01/25 13:30 Date of discharge: 03/03/25 Primary care physician: Unknown Physician Attending physician on admission: Jeff Reza Consults: 03/01/25 14:24 Consult to Wound Care Routine Reason for consultation: Multiple skin tears 03/02/25 08:59 Consult to Nephrology Routine Consulting Provider: [facility] [place] [facility] Reason for consultation: Hyponatremia Attending physician on discharge: Jeff [facility] Discharging clinician: Myranda Hutson DS: Diagnosis Discharge Diagnosis (1) Hyponatremia: Status: Acute DS: Summary Hospital Course Hospital Course: 75-year-old male with past medical history of laryngeal cancer, status post laryngectomy and radical neck dissection surgery in 2019, persistent AFib, CAD, status post PCI 1993 to , history of chronic heart failure with preserved ejection fraction, cardiomyopathy, sacral insufficiency fracture, BPH, pacemaker presented to the ED after falls x2. Patient was seem at earlier this month after a fall he had a CT scan that showed sacral insufficiency fracture, he did not require a medical admission, and he was discharged to [facility] for rehab. Patient was discharged from Rehab and presented to hospital one day after discharge due to two falls at home. He was found to have hyponatremia, Enterococcus facalis UTI sensitive to amoxicillin and PNA. Patient was seen by wound team for several skin tears and abrasions to his arms and legs, several bruises to his arms. Patient was found to have new rib fractures. In the ED he was found to have leukocytosis of 12.2 with a left shift of 83.6, slightly anemic 11.6 and 33.8 at baseline. Sodium was 125 with a BUN of 37. Osmolality 267. Head CT negative for acute abnormality, Lumbar CT with no new fractures and early healing of sacral insufficiency fracture. Found to have new Right lateral 9th-11th ribs and possible anterior eighth rib fracture. Patient received Ceftriaxone and Doxycycline for treatment of PNA and UTI, will complete course of Augmentin on DC. His sodium improved to baseline of 130 with fluid restriction of 1200 cc and home medication regime. His pain has been managed with Morphine ER 15 mgs BID, Oxy 5 mgs every 6 PRN, Lyrica and Robaxin. Patient is followed by [facility], has a cardio ROBER and Pacer. Status at Discharge Functional status at discharge: uses cane/walker Overall status at discharge: patient is progressing back to baseline Time Attestation Discharge Coordination Time (in mins): 40 Quality: Safe Use of Opioids Does Pt have an Active Cancer Diagnosis on the Problem List?: No Quality: Stroke Does the patient have a stroke diagnosis?: No Physical Exam Vital Signs: Vital Signs: Last Vital Signs Temp 98.6 F 03/03/25 07:54 Pulse 57 03/03/25 12:22 Resp 16 03/03/25 07:54 BP 149/65 H 03/03/25 12:22 Pulse Ox 93 03/03/25 12:22 O2 Del Method Room Air 03/03/25 07:54 O2 Flow Rate 5 03/01/25 13:24 BMI result Body Mass Index 19.1 CONST: Alert and oriented, in NAD. Thin and cachetic HEENT: Normocephalic, atraumatic, MMM, Eyes clear, Neck supple RESP: Lungs clear, RRR even and regular HEART:,RRR, S1, S2. No murmur, no edema GI:Abdomen Soft NT, ND. + BS times four :Deferred SKIN: Warm dry and intact, Multiple skin tears bruising and abrasions upper and lower extremities. Dressings intact. NEURO:CN II-XII Intact bilaterally, Sensation intact. Speech clear. Uses voice box PSYCH: Normal affect Const: General: no acute distress, alert and awake Resp: Effort & Inspection: normal respiratory effort and able to speak in complete sentences Auscultation: clear to auscultation bilaterally Cardio: Rate: regular rate Rhythm: regular rhythm Heart sounds: S1 normal heart sound present and S2 normal heart sound present GI: Palpation (GI): Soft to palpation and nontender : General: Yes no CVA tenderness Back/Spine/Pelvis: Back: no CVA tenderness Skin: Rashes: no rashes Extrem: General: No edema DS: Data Data Completed and Pending Labs on day of discharge: Laboratory Results - last 24 hr 03/03/25 03/03/25 05:45 10:49 Sodium 130 L Potassium 3.4 Chloride 97 Carbon Dioxide 23 Anion Gap 13 BUN 20 H Creatinine 0.83 Estim Creat Clear Calc 71.1 Estimated GFR > 60 Random Glucose 109 Calcium 9.1 Ur Random Sodium 23.0 Preliminary micro results at discharge 03/01/25 13:21 Blood Culture - Preliminary Blood - Venous No growth after 24 hours. 03/01/25 13:21 Blood Culture - Preliminary Blood - Venous No growth after 24 hours. Imaging Abdominal x-ray: Radiologist's impression: ITS Impressions Lumbar Spine CT 03/01/25 13:21 IMPRESSION: Early healing of a sacral insufficiency fracture with grade 1 anterolisthesis at S1-2. No interval shift. Multilevel degenerative disc disease and facet arthropathy, stable. No new fractures. Electronically signed by: Philipp Engel MD 03/01/2025 03:09 PM EDT RP Chest X-Ray 03/01/25 14:09 IMPRESSION: 1. Marked cardiomegaly again demonstrated. This is unchanged. 2. Atrial appendage occlusion device in place as well as a dual-lead pacer device. 3. Patchy left basilar opacity suspicious for pneumonia in the appropriate clinical setting. Electronically signed by: Saul Bull MD 03/01/2025 03:20 PM EDT RP Head CT 03/01/25 14:21 IMPRESSION: No acute intracranial abnormality. 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 Electronically signed by: Philipp Engel MD 03/01/2025 02:58 PM EDT RP Ribs w/Chest X-Ray 03/02/25 08:43 IMPRESSION: Suspected acute fractures of the lateral right ninth-11th ribs and possibly the anterior right eighth rib. Cardiomegaly. Electronically signed by: Philipp Engel MD 03/02/2025 10:34 AM EDT RP Hip/Pelvis X-Ray 03/02/25 08:44 IMPRESSION: Unremarkable left hip. ORIF Left posterior wall acetabular fracture, remote Electronically signed by: Philipp Engel MD 03/02/2025 10:27 AM EDT RP Discharge Plan Discharge Anticipated Discharge Date/Time: 03/03/25 16:00 Patient Disposition: Xfer SNF Discharge Diagnosis: Hyponatremia, FTT, PNA UTI Referrals: [facility] [place] [Outside] - 1 Week Referral Note: TRANSFER FOR SHORT TERM REHAB Haresh,Myranda, DNP [Nurse Practitioner, Hospitalist] - 1 Week Physician,Unknown J [Primary Care Provider, Medical] - 1 Week Discharge Medications: New morphine 15 mg Tablet Extended Release 15 mg PO Q12H 5 Days Qty: 10 0RF Rx Instructions: Partial Fill upon patient request. oxycodone 5 mg Tablet 5 mg PO Q6H PRN (Reason: Pain, Moderate(Pain Scale 4-6)) 5 Days Qty: 20 0RF Rx Instructions: Partial Fill upon patient request. pregabalin 150 mg Capsule 150 mg PO BID 5 Days Qty: 10 0RF Jardiance 10 mg Tablet 10 mg PO DAILY 30 Days Qty: 30 0RF acetazolamide 250 mg Tablet 125 mg PO MoWeFr 30 Days Qty: 7 0RF torsemide 20 mg Tablet 80 mg PO BID 30 Days Qty: 240 0RF Protocol: Hold for SBP< HOLD for SBP < : 90 amoxicillin-pot clavulanate 875-125 mg Tablet 1 tab PO BID Qty: 10 0RF Continued terazosin 10 mg capsule 10 mg PO DAILY 90 Days Qty: 90 3RF tolvaptan 30 mg tablet 30 mg PO DAILY Jardiance 10 mg tablet 10 mg PO DAILY morphine 15 mg tablet extended release 15 mg PO BID omeprazole 20 mg capsule,delayed release(DR/EC) 20 mg PO DAILY@0630 simvastatin 40 mg tablet 40 mg PO BEDTIME Vyndamax 61 mg capsule 61 mg PO DAILY Patient Comments: pt brought from home spironolactone 50 mg tablet 50 mg PO BID Discontinued tramadol 50 mg tablet 50 mg PO Q4H PRN (Reason: Pain) Discharge Orders: Discharge Order (Routine); Ordered 03/03/25 Ordered By: Myranda Hutson Diet: Regular diet Activity on Discharge: As tolerated Stand Alone Forms: Patient Portal Discharge page Print Language: Citizen Of [place] Care Plan Goals: Recover from PNA/UTI Improve Mobility Health Concerns: Hyponatremia Frequent falls UTI PNA Rib fractures/sacral Fracture Plan of Treatment: Complete ABT as ordered Assessment: Hyponatremia-Improved at baseline PNA-Complete ABT UTI-Complete ABT Deconditioning, Fall- Physical therapy Multiple fractures-Physical therapy Patient Instructions: Pneumonia (DC)
--- NOTE | 2025-03-03 15:26 | MHC.CM.PN ---
DP: PT HAS BEEN MEDICALLY CLEARED FOR DC TO STR AT [facility] [address]. BLS TRANSPORT BOOKED FOR 4 PM VIA TRAN. PT AWARE OF BED OFFER AND PLAN AND IS AGREEABLE. EN/MD AWARE. PT WILL NOTIFY HCP OF HIS PLAN.
[2025-03-03 15:29] VITALS: BP 114/58; PULSE 57; RESP 17; TEMP 37; O2SAT 94
[2025-03-03 20:00] VITALS: BP 117/56; PULSE 54; RESP 18; TEMP 36.8; O2SAT 94
[2025-03-03 20:30] VITALS: BP 117/56
[2025-03-04] VITALS (10 sets, daily range): BP systolic 92–120; BP diastolic 54–60; PULSE 60–74; RESP 16–18; TEMP 36.3–36.8; O2SAT 92–98
--- NOTE | 2025-03-04 06:11 | PC.NURSE ---
At first encounter, pt was upset asking about the plan on his c/o re his Hernia, relayed previous RN's report of probable consult to gen surg, pt was unsatisfied and demanding an MD to talk to him, Dr. Maya was notified, Dr. Maya deferred the concern to the morning team.
[2025-03-04] MEDS: Morphine Sulfate ER 15 MG TABLET.ER PO ×2 (08:58→21:29)
[2025-03-04] MEDS: 0.9 % Sodium Chloride Flush 3 ML SYRINGE IVFLUSH ×3 (08:59→21:29)
[2025-03-04] MEDS: Calcium + Vitamin D 250 MG TABLET 500 MG PO (08:59)
[2025-03-04] MEDS: TOLVAPTAN 30 MG 1 EACH PO (09:00)
[2025-03-04] MEDS: VYNDAMAX 61 MG 1 EACH PO (09:01)
[2025-03-04] MEDS: oxyCODONE HCl Immed Release 5 MG TABLET PO (09:17)
--- NOTE | 2025-03-04 12:19 | P.PNIM_ITS ---
Subjective Subjective Date of Service: 03/04/25 Interval History: pain from R groin hernia improved but c/o nerve pain in legs c/o R chest wall pain Review of Systems Review of Systems: Yes all other systems are reviewed and are negative Physical Exam 2 Vital Signs: Vital Signs: Last Vital Signs Temp 97.3 F 03/04/25 07:22 Pulse 60 03/04/25 07:22 Resp 16 03/04/25 07:22 BP 107/54 L 03/04/25 08:58 Pulse Ox 98 03/04/25 07:22 O2 Del Method Room Air 03/04/25 07:22 O2 Flow Rate 5 03/01/25 13:24 BMI result Body Mass Index 19.1 Gen: in no acute distress HEENT: sclera anicteric, moist mucus membranes Neck: supple, stoma Lungs: clear to auscultation bilaterally Heart: regular rate and rhythm, no murmurs Abd: soft, non-tender, non-distended : large R inguinal hernia Ext: no edema Skin: warm/well-perfused Neuro: alert and oriented x3, no focal findings Psych: appropriate affect Objective Data Active Medications Acetaminophen (Acetaminophen 325 Mg Tablet) 650 mg PO Q6H PRN PRN Reason: Pain, Mild 1-3,fever,headache Last Admin: 03/02/25 20:47 Dose: 650 mg Documented By: MELANY Acetazolamide (Acetazolamide 250 Mg Tablet) 125 mg PO MoWeFr [facility] Last Admin: 03/03/25 08:30 Dose: 125 mg Documented By: SUSAN Albuterol/Ipratropium (Albuterol/Iprat 2.5/0.5mg 3 Ml Ampul.Neb) 3 ml INHALE Q4H PRN PRN Reason: Shortness of Breath/Wheezing Amoxicillin/Clavulanate Potassium (Amoxicillin/Potassium Clav 875 Mg Tablet) 875 mg PO BID [facility] Last Admin: 03/04/25 08:57 Dose: 875 mg Documented By: ROBB Atorvastatin Calcium (Atorvastatin Calcium 20 Mg Tablet) 20 mg PO DAILY [facility] Last Admin: 03/04/25 08:57 Dose: 20 mg Documented By: ROBB Calcium Carbonate/Cholecalciferol (Calcium + Vitamin D 250 Mg Tablet) 500 mg PO BIDWM [facility] Last Admin: 03/04/25 08:59 Dose: 500 mg Documented By: ROBB Doxazosin Mesylate (Doxazosin Mesylate 2 Mg Tablet) 8 mg PO DAILY [facility] Last Admin: 03/04/25 08:58 Dose: 8 mg Documented By: ROBB Empagliflozin (Empagliflozin 10 Mg Tablet) 10 mg PO DAILY [facility] Last Admin: 03/04/25 08:57 Dose: 10 mg Documented By: ROBB Enoxaparin Sodium (Enoxaparin Sodium 40 Mg/0.4 Ml Syringe) 40 mg SUBCUT Q24H [facility] Last Admin: 03/03/25 14:26 Dose: Not Given Documented By: SUSAN Non-Admin Reason: Patient Refused Magnesium Hydroxide (Milk Of Magnesia 30 Ml Oral.Susp) 30 ml PO DAILY PRN PRN Reason: Constipation Melatonin (Melatonin 3 Mg Tablet) 6 mg PO BEDTIME PRN PRN Reason: Insomnia Methocarbamol (Methocarbamol 750 Mg Tablet) 750 mg PO TID [facility] Last Admin: 03/04/25 08:59 Dose: 750 mg Documented By: ORBB Morphine Sulfate (Morphine Sulfate Er 15 Mg Tablet.Er) 15 mg PO Q12H [facility] Last Admin: 03/04/25 08:58 Dose: 15 mg Documented By: ROBB Pt Own Vyndamax 61 (Mg) 1 each PO DAILY [facility] Last Admin: 03/04/25 09:01 Dose: 1 each Documented By: ROBB Pt Own (Tolvaptan 30 (Mg Tablet)) 1 each PO DAILY [facility] Last Admin: 03/04/25 09:00 Dose: 1 each Documented By: ROBB Omeprazole (Omeprazole 20 Mg Capsule.Dr) 20 mg PO DAILY@0630 [facility] Last Admin: 03/04/25 05:47 Dose: 20 mg Documented By: MELANY Ondansetron HCl (Ondansetron Hcl 4 Mg/2 Ml Vial) 4 mg IVPUSH Q8H PRN PRN Reason: Nausea and Vomiting Oxycodone HCl (Oxycodone Hcl Immed Release 5 Mg Tablet) 5 mg PO Q6H PRN PRN Reason: Pain, Moderate(Pain Scale 4-6) Last Admin: 03/04/25 09:17 Dose: 5 mg Documented By: ROBB Polyethylene Glycol (Polyethylene Glycol 3350 17 Gm Powd.Pack) 17 gm PO DAILY [facility] Last Admin: 03/04/25 08:56 Dose: 17 gm Documented By: ROBB Pregabalin (Pregabalin 150 Mg Capsule) 150 mg PO BID [facility] Last Admin: 03/04/25 08:59 Dose: 150 mg Documented By: ROBB Senna/Docusate Sodium (Sennosides/Docusate Sodium Tablet) 2 tab PO DAILY [facility] Last Admin: 03/04/25 08:57 Dose: 2 tab Documented By: ROBB Sodium Chloride (0.9 % Sodium Chloride Flush 3 Ml Syringe) 3 ml IVFLUSH QSHIFT [facility] Last Admin: 03/04/25 08:59 Dose: 3 ml Documented By: ROBB Spironolactone (Spironolactone 25 Mg Tablet) 50 mg PO DAILY [facility]; Protocol Last Admin: 03/04/25 08:57 Dose: 50 mg Documented By: ROBB Torsemide (Torsemide 20 Mg Tablet) 80 mg PO BID [facility]; Protocol Last Admin: 03/04/25 08:56 Dose: 80 mg Documented By: ROBB Labs 03/02/25 05:28 03/03/25 05:45 Microbiology Microbiology Results: Microbiology 03/01/25 13:21 Blood Culture - Preliminary Blood - Venous No growth after 48 hours. 03/01/25 13:21 Blood Culture - Preliminary Blood - Venous No growth after 48 hours. 03/01/25 Unknown Urine Culture - Final Urine clean catch - Clean Catch Midstream Enterococcus faecalis Assessment and Plan (1) Urinary tract infection: Status: Acute (2) Pneumonia: Status: Acute Plan d4 for 75yo M with chronic hypoNa, CKD2, BPH, HFpEF, CAD, AF, 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, GERD, chronic back pain, sacral fracture send back from [facility] acute rehab due to 2 falls; found to have hypoNa, UTI, and PNA along with multiple rib fractures recurrent inguinal hernia - Surgery consult pending hypoNa, chronic - Na 130 on 03/03, continue tolvaptan multiple rib fractures - pain control with lidocaine patch, MSSR + oxycodone, unable to do IS due to stoma LLL PNA - was on ceftriaxone and doxycycline; continue amoxicillin-clavulanate 03/03-03/10 Enterococcus faecalis UTI - amoxicillin-clavulanate as above chronic pain - continue MSSR + prn oxycodone; pregabalin, methocarbamol BPH - continue doxazosin HLD - statin HFpEF - empagliflozin, torsemide, spironolactone, acetazolamide; followed by [facility] [place] [facility] CAD s/p CABG AF - not on anticoagulation presumably due to fall risk amyloidosis - continue tafamidis GERD - PPI laryngeal CA s/p resection, stoma - yearly follow-up with Oncology VTE ppx - enoxaparin dispo - STR In my clinical judgment, the patient requires continued inpatient hospitalization for the following reasons: surgical consultation Total time managing care of this patient today: 45 minutes. Quality Stroke Does the patient have a stroke diagnosis?: No VTE Prior VTE?: No VTE Risk Level:: Medical - moderate - high VTE Device Contraindication: Treatment Not Indicated VTE Drug Contraindication: N/A - Med Ordered
[2025-03-04] MEDS: Lidocaine 4 % Patch ADH..PATCH 1 PATCH TRANSDERMA (13:05)
[2025-03-04] MEDS: oxyCODONE HCl Immed Release 5 MG TABLET 10 MG PO (13:06)
--- NOTE | 2025-03-04 13:56 | PM.CNGS ---
History of Present Illness Consult details Consult date: 03/04/25 Requesting physician: Tatum Valverde Narrative: 75-year-old male with past medical history of laryngeal cancer, status post laryngectomy and radical neck dissection surgery in 2019, persistent AFib, CAD, status post PCI 1993 to , history of chronic heart failure with preserved ejection fraction, cardiomyopathy, sacral insufficiency fracture, BPH, pacemaker presented to the ED after falls x2. He was admitted and treated and He was about to be discharged when he started complaining of right groin pain and noted that his hernia was sticking out. Patient has had several right inguinal hernia repairs last [address] Montgomery in 2019. He has seen Dr. Montgomery in the office several times for recurrent right inguinal hernia repair but has not necessarily wanted to pursue surgical revision secondary to his multiple medical issues and he did not feel like it was causing him any worrisome symptoms. However now the hernias out can not be reduced it seems incarcerated. His abdomen is little more distended and normal. He says he has not had a bowel movement in several days. He may have been passing a little gas he said he has felt a little nauseated but has not thrown up Review of Systems Review of Systems: Yes all other systems are reviewed and are negative PMFSH Past Medical History Medical History Recurrent inguinal hernia Pacemaker Right inguinal hernia History of laryngeal cancer Chronic a-fib BPH (benign prostatic hyperplasia) Family History Family History Father No problems noted. Mother History of hypertension Son No problems noted. Son No problems noted. Daughter No problems noted. Surgical History Surgical History History of left knee replacement Social History Social History Household Members: None Housing: House Alcohol intake: never Patient Tobacco Use Status: Former Tobacco user Advance Directives Date on File: 02/17/25 service: No Meds Allergies Allergy/AdvReac Type Severity Reaction Status Date / Time No Known Allergies (No Known Allergy Verified 03/01/25 11:14 Allergies*) Active Medications: Current Medications Acetaminophen (Acetaminophen 325 Mg Tablet) 650 mg PO Q6H PRN PRN Reason: Pain, Mild 1-3,fever,headache Last Admin: 03/02/25 20:47 Dose: 650 mg Acetazolamide (Acetazolamide 250 Mg Tablet) 125 mg PO MoWeFr [facility] Last Admin: 03/03/25 08:30 Dose: 125 mg Albuterol/Ipratropium (Albuterol/Iprat 2.5/0.5mg 3 Ml Ampul.Neb) 3 ml INHALE Q4H PRN PRN Reason: Shortness of Breath/Wheezing Amoxicillin/Clavulanate Potassium (Amoxicillin/Potassium Clav 875 Mg Tablet) 875 mg PO BID [facility] Last Admin: 03/04/25 08:57 Dose: 875 mg Atorvastatin Calcium (Atorvastatin Calcium 20 Mg Tablet) 20 mg PO DAILY [facility] Last Admin: 03/04/25 08:57 Dose: 20 mg Calcium Carbonate/Cholecalciferol (Calcium + Vitamin D 250 Mg Tablet) 500 mg PO BIDWM [facility] Last Admin: 03/04/25 08:59 Dose: 500 mg Doxazosin Mesylate (Doxazosin Mesylate 2 Mg Tablet) 8 mg PO DAILY [facility] Last Admin: 03/04/25 08:58 Dose: 8 mg Empagliflozin (Empagliflozin 10 Mg Tablet) 10 mg PO DAILY [facility] Last Admin: 03/04/25 08:57 Dose: 10 mg Enoxaparin Sodium (Enoxaparin Sodium 40 Mg/0.4 Ml Syringe) 40 mg SUBCUT Q24H [facility] Last Admin: 03/03/25 14:26 Dose: Not Given Lidocaine (Lidocaine 4 % Patch Adh..Patch) 1 patch TRANSDERMA DAILY [facility]; Protocol Last Admin: 03/04/25 13:05 Dose: 1 patch Magnesium Hydroxide (Milk Of Magnesia 30 Ml Oral.Susp) 30 ml PO DAILY PRN PRN Reason: Constipation Melatonin (Melatonin 3 Mg Tablet) 6 mg PO BEDTIME PRN PRN Reason: Insomnia Methocarbamol (Methocarbamol 750 Mg Tablet) 750 mg PO TID [facility] Last Admin: 03/04/25 08:59 Dose: 750 mg Morphine Sulfate (Morphine Sulfate Er 15 Mg Tablet.Er) 15 mg PO Q12H [facility] Last Admin: 03/04/25 08:58 Dose: 15 mg Pt Own Vyndamax 61 (Mg) 1 each PO DAILY [facility] Last Admin: 03/04/25 09:01 Dose: 1 each Pt Own (Tolvaptan 30 (Mg Tablet)) 1 each PO DAILY [facility] Last Admin: 03/04/25 09:00 Dose: 1 each Omeprazole (Omeprazole 20 Mg Capsule.Dr) 20 mg PO DAILY@629 [facility] Last Admin: 03/04/25 05:47 Dose: 20 mg Ondansetron HCl (Ondansetron Hcl 4 Mg/2 Ml Vial) 4 mg IVPUSH Q8H PRN PRN Reason: Nausea and Vomiting Oxycodone HCl (Oxycodone Hcl Immed Release 5 Mg Tablet) 10 mg PO Q6H PRN PRN Reason: Pain, Moderate(Pain Scale 4-6) Last Admin: 03/04/25 13:06 Dose: 10 mg Polyethylene Glycol (Polyethylene Glycol 3350 17 Gm Powd.Pack) 17 gm PO DAILY [facility] Last Admin: 03/04/25 08:56 Dose: 17 gm Pregabalin (Pregabalin 150 Mg Capsule) 150 mg PO BID [facility] Last Admin: 03/04/25 08:59 Dose: 150 mg Senna/Docusate Sodium (Sennosides/Docusate Sodium Tablet) 2 tab PO DAILY [facility] Last Admin: 03/04/25 08:57 Dose: 2 tab Sodium Chloride (0.9 % Sodium Chloride Flush 3 Ml Syringe) 3 ml IVFLUSH QSHIFT [facility] Last Admin: 03/04/25 08:59 Dose: 3 ml Spironolactone (Spironolactone 25 Mg Tablet) 50 mg PO DAILY [facility]; Protocol Last Admin: 03/04/25 08:57 Dose: 50 mg Torsemide (Torsemide 20 Mg Tablet) 80 mg PO BID [facility]; Protocol Last Admin: 03/04/25 08:56 Dose: 80 mg Home Medications ?Medication ?Instructions ?Recorded ?Confirmed ?Last Taken ?Type omeprazole 20 mg capsule,delayed 20 mg PO DAILY@62907/18/20 03/01/25 Unknown History release simvastatin 40 mg tablet 40 mg PO BEDTIME 07/18/20 03/01/25 Unknown History tafamidis 61 mg capsule (Vyndamax) 61 mg PO DAILY 03/09/24 03/01/25 Unknown History spironolactone 50 mg tablet 50 mg PO BID 07/01/24 03/01/25 Unknown History empagliflozin 10 mg tablet 10 mg PO DAILY 03/01/25 03/01/25 Unknown History (Jardiance) morphine 15 mg tablet,extended 15 mg PO BID 03/01/25 03/01/25 Unknown History release tolvaptan 30 mg tablet 30 mg PO DAILY 03/01/25 03/01/25 Unknown History Physical Exam Vital Signs: Vital Signs: Last Vital Signs Temp 97.3 F 03/04/25 07:22 Pulse 60 03/04/25 07:22 Resp 16 03/04/25 07:22 BP 107/54 L 03/04/25 08:58 Pulse Ox 98 03/04/25 07:22 O2 Del Method Room Air 03/04/25 07:22 O2 Flow Rate 5 03/01/25 13:24 BMI result Body Mass Index 19.1 Const: General: cooperative and acute distress mild HEENT: Head: Yes normal to inspection Resp: Effort & Inspection: normal respiratory effort Auscultation: clear to auscultation bilaterally Cardio: Rate: regular rate Rhythm: regular rhythm GI: Other: Abdomen is soft but very distended right lower quadrant inguinal area mass consistent with incarcerated hernia. Areas little tender to palpation. Patient does have some bowel sounds. No overlying erythema Results Labs 03/04/25 17:45 03/04/25 17:45 Labs: Urine 03/01/25 Range/Units 11:29 Urine Color Yellow Urine Appearance Cloudy Urine pH 7.5 (5.0-9.0) Ur Specific [place] 1.015 (1.005-1.025) Urine Protein Negative (Neg-Trace) mg/dL Urine Glucose (UA) 500 H (Negative) mg/dL All other labs normal. Imaging Abdomen CT scan report/results: pending, report reviewed and image reviewed CT scan - pelvis: report reviewed and image reviewed Additional studies: [address] [address] [address] Scan Report Signed with Lorettaenda Patient: Sanket Little MR#: [id number] : 1950 Acct:[id number] Age/Sex: 75 / M ADM Date: 03/01/25 Loc: HO.S3 368-[address]: Tatum Valverde MD Ordering Physician: Tatum Valverde MD Date of Service: 03/04/25 Procedure(s): CT abdomen pelvis wo IV con Accession Number(s): [id number] cc: Tatum Valverde MD; Physician,Unknown ~ Report Number: [id number]: Total DLP = 498.00 mGy-cm ADDENDUMThis document has been electronically signed by: Fransisco Porter MD on 03/04/2025 17:07:10 ADDENDUM: This report was discussed with KATHLEEN Rainey on Mar 04, 2025 17:13:00 EDT. This document has been electronically signed by: Roxy Guzman on 03/04/2025 17:13:30 Addendum Dictated By: Fransisco Porter MD Addendum Signed By: <Electronically signed by Fransisco Porter MD in [place]> 03/04/251712 Addendum Cosigned By: DD/ TD/TT: 03/04/25 CLINICAL HISTORY: hernia ?incarcerated? CT abdomen and pelvis without IV or oral contrast Comparison: None Findings: Right basilar atelectasis. Small consolidation right lower lobe with air bronchograms. No dependent layering pleural effusions. Marked cardiomegaly. Dual-chamber pacemaker/ AICD. Calcified coronary artery disease. Probable gynecomastia. No stones are identified in the kidneys, ureters or bladder. There is no hydronephrosis or perinephric stranding/fluid. Well-distended urinary bladder. Probable renal cortical cysts on the left. Renovascular calcifications bilaterally. Evaluation of the liver, spleen, adrenal glands and pancreas demonstrates no lesions. It should be noted that isodense masses may be obscured in the absence of intravenous contrast. No radiopaque gallstones. Heavy stool burden. Distal small bowel obstruction which is complete down to the level of a right inguinal hernia containing a loop of small bowel causing obstruction. Mesenteric edema. Minimal fluid in the hernia sac. No pathologically enlarged lymph nodes. Mild prostatomegaly. Fracture probable old S1 vertebral body. Remaining vertebral body heights are preserved. ORIF screw posterior left acetabulum. Impression: 1. Complete distal small bowel obstruction down to the level of a right inguinal hernia containing a loop of obstructed small bowel with minimal fluid in the hernia sac. No free air or pneumatosis intestinalis. Small-bowel dilatation measuring up to 3.6 cm. 2. Heavy stool burden throughout the colon. 3. Marked cardiomegaly. Minimal pleural-parenchymal disease right lower lobe. This document has been electronically signed by: Fransisco Porter MD on 03/04/2025 17:07:10 Dictated By: Fransisco Porter MD Signed By: <Electronically signed by Fransisco Porter MD in [place]> 03/04/251707 DD/ 06 TD/TT: 03/04/251706 Art Coordinator: Assessment and Plan (1) Incarcerated right inguinal hernia: Status: Acute Plan Patient is a 75-year-old male with incarcerated right inguinal hernia CT scan of his abdomen and pelvis showing complete obstruction. At this point urgent exploration i is required. Discussion with the patient about risks and benefits of re-exploration including but not limited to recurrent hernia ischemia of the testicle or loss of the testicle and possible need for small bowel resection and possible even ostomy. He understands and agrees to proceed as he knows that the obstruction is a significant issue. Discussed with the medical team to keep NPO place NG tube IV fluid resuscitation. Plan on getting cardiology consultation secondary to all his medical issues. Pending Cardiology we will hopefully be able to proceed with his exploration. Extensive discussion had with the medical team about partner in with his care Procedures Date of Service Date of Service: 03/04/25
[2025-03-04 18:04] LABS: Hematocrit 38.6 % (42.0-52.0); Hemoglobin 13.4 g/dl (14.0-18.0); Mean Corpuscular HGB Conc 34.7 g/dl (31.0-36.0); Mean Corpuscular Hemoglobin 29.6 pg (27.0-33.0); Mean Corpuscular Volume 85.4 fL (80.0-98.0); NRBC Abs Auto 0.000 X10*3/uL (0.0-0.012); NRBC Pct Auto 0.0 /100WBC (0.0-0.2); Platelet Count 207 X10*3/uL (160-400); Red Blood Count 4.52 X10*6/uL (4.60-5.80); White Blood Count 15.0 X10*3/uL (4.8-10.8)
[2025-03-04 18:15] LABS: Anion Gap 18 (12-20); Blood Urea Nitrogen 28 mg/dL (9-16); Calcium 10.0 mg/dL (8.4-10.2); Carbon Dioxide 24 mmol/L (22-29); Chloride 89 mmol/L (96-108); Creatinine Clr Calc Pharmacy 43.7; Estimated Glomerular Filt Rate 51; Potassium 3.9 mmol/L (3.3-5.1); Sodium 127 mmol/L (135-145)
--- NOTE | 2025-03-04 18:31 | PC.NURSE ---
Attempted 2 times to insert NG tube without success. Pt is requesting a break at this time , Md Valverde notified
[2025-03-04 19:39] LABS: B Type Natriuretic Peptide 57 pg/mL (<100)
--- NOTE | 2025-03-04 23:31 | PC.NURSE ---
Pt seen on bed asleep and resting on bed, aroused when called, minimal chronic pain as claimed, routine vitals had BP =100/55, manual 106/60, Dr. Mauro was informed, ordered to hold Torsemide po and give the Morphine ER, to rechecked BP later ,if improved can give rest of meds. BP was rechecked = 92/58, Dr. Mauro was informed, Lyrica and metacarbamol was held. Also Dr. Rios came to bedside at the beginning of the shift, plan of care explained to pt, to defer NGT insertion until tomorrow when pt be sedated, plan for surgery tomorrow after cardiac clearance, NPO except meds and ice chip only as per MD, pt complied.
[2025-03-05] VITALS (10 sets, daily range): BP systolic 97–160; BP diastolic 51–71; PULSE 60–86; RESP 14–22; TEMP 36–36.9; O2SAT 92–99
[2025-03-05 08:21] LABS: MANUAL DIFF FLAG NO
[2025-03-05] MEDS: Lidocaine 4 % Patch ADH..PATCH 1 PATCH TRANSDERMA (08:26)
[2025-03-05] MEDS: 0.9 % Sodium Chloride Flush 3 ML SYRINGE IVFLUSH ×2 (08:26→16:56)
[2025-03-05 08:27] LABS: Hematocrit 40.6 % (42.0-52.0); Hemoglobin 13.6 g/dl (14.0-18.0); Imm Gran Abs Auto 0.20 X10*3/uL (0.00-0.03); Imm Gran Pct Auto 1.5 % (0.0-0.4); Lymphocytes Absolute Auto 0.6 X10*3/uL (1.2-4.9); Mean Corpuscular HGB Conc 33.5 g/dl (31.0-36.0); Mean Corpuscular Hemoglobin 30.2 pg (27.0-33.0); Mean Corpuscular Volume 90.0 fL (80.0-98.0); NRBC Abs Auto 0.000 X10*3/uL (0.0-0.012); NRBC Pct Auto 0.0 /100WBC (0.0-0.2); Platelet Count 167 X10*3/uL (160-400); Red Blood Count 4.51 X10*6/uL (4.60-5.80); White Blood Count 13.4 X10*3/uL (4.8-10.8)
[2025-03-05 08:32] LABS: INTERNATIONAL NORM RATIO 1.0 (0.9-1.1); Prothrombin Time 12.0 SEC (10.9-12.4)
[2025-03-05 08:40] LABS: Anion Gap 18 (12-20); Blood Urea Nitrogen 37 mg/dL (9-16); Calcium 9.7 mg/dL (8.4-10.2); Carbon Dioxide 22 mmol/L (22-29); Chloride 88 mmol/L (96-108); Creatinine Clr Calc Pharmacy 36.9; Estimated Glomerular Filt Rate 42; Potassium 4.3 mmol/L (3.3-5.1); Sodium 124 mmol/L (135-145)
[2025-03-05] MEDS: Morphine Sulfate ER 15 MG TABLET.ER PO ×2 (09:22→20:40)
[2025-03-05] MEDS: TOLVAPTAN 30 MG 1 EACH PO (09:23)
[2025-03-05] MEDS: VYNDAMAX 61 MG 1 EACH PO (09:24)
--- NOTE | 2025-03-05 09:53 | P.CONCA_ITS ---
History of Present Illness History of Present Illness Date of Service: 03/05/25 Chief complaint: UTI, Hyponatremia Narrative: This is a cardiology consultation regarding preoperative risk stratification for incarcerated hernia surgery that is being in the next few hours. Records from [facility] reviewed. Last seen by heart failure clinic in January of this year. According to that note, he has a history of persistent atrial fibrillation going back at least 2010, coronary disease status post PCI 9094 to RCA, history of chronic heart failure with preserved ejection fraction/severe biatrial enlargement. 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 Has a CardioMEMS in place. Status post Watchman device. Tricuspid regurgitation. Overall, many comorbidities as listed but it seems that he has generally been stable. He denies any clear-cut exertional chest pain or shortness of breath and states that he can go up to 2 flights of stairs slowly. Review of Systems 2 Review of Systems: Yes all other systems are reviewed and are negative Constitutional: Constitutional: Reports as per HPI and Reports no additional constitutional complaints Eyes: Eyes: Reports as per HPI and Denies no additional eye complaints ENT: Denies system reviewed and no additional complaints, except as documented and Reports as per HPI Cardiovascular: Cardiovascular: Reports as per HPI, Reports no additional cardiovascular complaints, Denies acrocyanosis, Denies cool extremities, Denies chest pain, Denies leg edema, Denies lightheadedness, Denies palpitations and Denies dyspnea Respiratory: Respiratory: Reports as per HPI, Denies no additional respiratory complaints and Denies dyspnea Gastrointestinal: Gastrointestinal: Reports as per HPI and Denies no additional gastrointestinal complaints Genitourinary: Genitourinary: Reports no additional male genitourinary complaints and Reports as per HPI Musculoskeletal: Musculoskeletal: Reports no additional musculoskeletal complaints and Reports as per HPI Integumentary/Breasts: Skin/Breast: Reports system reviewed and no additional complaints, except as docu Neurologic: Reports system reviewed and no additional complaints, except as documented and Reports as per HPI Psychiatric: Psychiatric: Reports no additional psychiatric complaints and Reports as per HPI Endocrine: Endocrine: Reports no additional endocrine complaints, Reports as per HPI and Denies palpitations Hematologic/Lymphatic: Hematologic/Lymphatic: Reports no additional hematologic/lymphatic complaints and Reports as per HPI Allergic/Immunologic: Allergic/Immunologic: Reports no additional allergic/immunologic complaints and Reports as per HPI [facility] Past Medical History Medical History (Updated 03/05/25 @ 09:56 by Clifton Harris MD) Presence of Watchman left atrial appendage closure device Atherosclerotic cardiovascular disease Recurrent inguinal hernia Pacemaker Right inguinal hernia History of laryngeal cancer Chronic a-fib BPH (benign prostatic hyperplasia) Family History Family History Father No problems noted. Mother History of hypertension Son No problems noted. Son No problems noted. Daughter No problems noted. Surgical History Surgical History History of left knee replacement Social History Social History Household Members: None Housing: House Alcohol intake: never Patient Tobacco Use Status: Former Tobacco user Advance Directives Date on File: 02/17/25 service: No Meds Allergies Allergy/AdvReac Type Severity Reaction Status Date / Time No Known Allergies (No Known Allergy Verified 03/01/25 11:14 Allergies*) Active Medications: Current Medications Acetaminophen (Acetaminophen 325 Mg Tablet) 650 mg PO Q6H PRN PRN Reason: Pain, Mild 1-3,fever,headache Last Admin: 03/02/25 20:47 Dose: 650 mg Acetazolamide (Acetazolamide 250 Mg Tablet) 125 mg PO MoWeFr [facility] Last Admin: 03/03/25 08:30 Dose: 125 mg Albuterol/Ipratropium (Albuterol/Iprat 2.5/0.5mg 3 Ml Ampul.Neb) 3 ml INHALE Q4H PRN PRN Reason: Shortness of Breath/Wheezing Atorvastatin Calcium (Atorvastatin Calcium 20 Mg Tablet) 20 mg PO DAILY [facility] Last Admin: 03/05/25 09:22 Dose: 20 mg Calcium Carbonate/Cholecalciferol (Calcium + Vitamin D 250 Mg Tablet) 500 mg PO BIDWM [facility] Last Admin: 03/05/25 09:25 Dose: Not Given Doxazosin Mesylate (Doxazosin Mesylate 2 Mg Tablet) 8 mg PO DAILY [facility] On Hold: 03/05/25 07:17 Last Admin: 03/04/25 08:58 Dose: 8 mg Empagliflozin (Empagliflozin 10 Mg Tablet) 10 mg PO DAILY [facility] On Hold: 03/05/25 07:17 Last Admin: 03/04/25 08:57 Dose: 10 mg Enoxaparin Sodium (Enoxaparin Sodium 40 Mg/0.4 Ml Syringe) 40 mg SUBCUT Q24H [facility] Last Admin: 03/04/25 15:34 Dose: 40 mg Sodium Chloride (Ns) 1,000 mls @ 100 mls/hr IVCONT .Q10H [facility] Stop: 03/05/25 17:14 Last Admin: 03/05/25 09:26 Dose: 100 mls/hr Ampicillin Sodium/Sulbactam (Sodium 3 gm/ Sodium Chloride) 100 mls @ 200 mls/hr IV Q6H [facility] Last Infusion: 03/05/25 09:05 Dose: Infused Lidocaine (Lidocaine 4 % Patch Adh..Patch) 1 patch TRANSDERMA DAILY [facility]; Protocol Last Admin: 03/05/25 08:26 Dose: 1 patch Magnesium Hydroxide (Milk Of Magnesia 30 Ml Oral.Susp) 30 ml PO DAILY PRN PRN Reason: Constipation Melatonin (Melatonin 3 Mg Tablet) 6 mg PO BEDTIME PRN PRN Reason: Insomnia Methocarbamol (Methocarbamol 750 Mg Tablet) 750 mg PO TID [facility] On Hold: 03/05/25 07:17 Last Admin: 03/04/25 22:51 Dose: Not Given Morphine Sulfate (Morphine Sulfate Er 15 Mg Tablet.Er) 15 mg PO Q12H [facility] Last Admin: 03/05/25 09:22 Dose: 15 mg Pt Own Vyndamax 61 (Mg) 1 each PO DAILY [facility] Last Admin: 03/05/25 09:24 Dose: 1 each Pt Own (Tolvaptan 30 (Mg Tablet)) 1 each PO DAILY [facility] Last Admin: 03/05/25 09:23 Dose: 1 each Ondansetron HCl (Ondansetron Hcl 4 Mg/2 Ml Vial) 4 mg IVPUSH Q8H PRN PRN Reason: Nausea and Vomiting Oxycodone HCl (Oxycodone Hcl Immed Release 5 Mg Tablet) 10 mg PO Q6H PRN PRN Reason: Pain, Moderate(Pain Scale 4-6) Last Admin: 03/04/25 13:06 Dose: 10 mg Polyethylene Glycol (Polyethylene Glycol 3350 17 Gm Powd.Pack) 17 gm PO DAILY [facility] On Hold: 03/05/25 07:17 Last Admin: 03/04/25 08:56 Dose: 17 gm Pregabalin (Pregabalin 150 Mg Capsule) 150 mg PO BID [facility] Last Admin: 03/05/25 09:23 Dose: 150 mg Senna/Docusate Sodium (Sennosides/Docusate Sodium Tablet) 2 tab PO DAILY [facility] On Hold: 03/05/25 07:17 Last Admin: 03/04/25 08:57 Dose: 2 tab Sodium Chloride (0.9 % Sodium Chloride Flush 3 Ml Syringe) 3 ml IVFLUSH QSHIFT [facility] Last Admin: 03/05/25 08:26 Dose: 3 ml Spironolactone (Spironolactone 25 Mg Tablet) 50 mg PO DAILY [facility]; Protocol On Hold: 03/05/25 07:17 Last Admin: 03/04/25 08:57 Dose: 50 mg Torsemide (Torsemide 20 Mg Tablet) 80 mg PO BID [facility]; Protocol On Hold: 03/05/25 07:17 Last Admin: 03/04/25 21:36 Dose: Not Given Home Medications ?Medication ?Instructions ?Recorded ?Confirmed ?Last Taken ?Type omeprazole 20 mg capsule,delayed 20 mg PO DAILY@0630 1 09/17/19 03/01/25 Unknown History release simvastatin 40 mg tablet 40 mg PO BEDTIME 07/18/20 Unknown History tafamidis 61 mg capsule (Vyndamax) 61 mg PO DAILY 11/2803/01/25 Unknown History spironolactone 50 mg tablet 50 mg PO BID 07/01/2402/06 Unknown History empagliflozin 10 mg tablet 10 mg PO DAILY 03/01/25 Unknown History (Jardiance) morphine 15 mg tablet,extended 15 mg PO BID 03/01/25 0 03/01/25 Unknown History release tolvaptan 30 mg tablet 30 mg PO DAILY 03/01/2502/06 Unknown History Physical Exam 2 Vital Signs: Vital Signs: Last Vital Signs Temp 96.8 F 03/05/25 07:34 Pulse 61 03/05/25 07:34 Resp 16 03/05/25 07:34 BP 119/55 L 03/05/25 07:34 Pulse Ox 93 03/05/25 07:34 O2 Del Method Room Air 03/05/25 07:34 O2 Flow Rate 5 03/01/25 13:24 BMI result Body Mass Index 19.1 Const: General: comfortable and no acute distress O rientation/consciousness: patient oriented x3 HEENT: Other: Unremarkable Head: Yes normal to inspection Neck: Neck: Yes normal visual inspection Chest: Chest palpation & inspection: normal inspection of the chest Resp: Auscultation: clear to auscultation bilaterally Cardio: Palpation: normal PMI Heart sounds: S1 normal heart sound present, S2 normal heart sound present, no gallops, Murmur heart sound present systolic III/ and at the left sternal border and no rubs GI: Palpation (GI): Soft to palpation Back/Spine/Pelvis: Other: unremarkable Skin: General skin exam: no rashes or lesions noted Neuro: General: patient oriented x3 Extrem: General: Yes normal to inspection Psych: Mental Status: mental status grossly normal Objective Labs and Meds 03/05/25 08:14 03/05/25 08:14 Lab results: Laboratory Results - last 24 hr 03/04/25 03/05/25 17:45 08:14 WBC 15.0 H 13.4 H RBC 4.52 L 4.51 L Hgb 13.4 L D 13.6 L Hct 38.6 L 40.6 L MCV 85.4 90.0 MCH 29.6 30.2 MCHC 34.7 33.5 RDW 18.5 H 18.6 H Plt Count 207 D 167 MPV 9.1 L 9.2 L Immature Gran % (Auto) 1.5 H Neut % (Auto) 84.2 H Lymph % (Auto) 4.3 L [place] % (Auto) 8.8 Eos % (Auto) 0.7 Baso % (Auto) 0.5 Lymph # (Auto) 0.6 L [place] # (Auto) 1.2 Eos # (Auto) 0.1 Baso # (Auto) 0.1 Abs Immat Gran (auto) 0.20 H Absolute Neuts (auto) 11.2 H Absolute Nucleated RBC 0.000 0.000 Nucleated RBC % (auto) 0.0 0.0 PT 12.0 INR 1.0 Sodium 127 L 124 L Potassium 3.9 4.3 Chloride 89 L 88 L Carbon Dioxide 24 22 Anion Gap 18 18 BUN 28 H 37 H Creatinine 1.35 1.60 H Estim Creat Clear Calc 43.7 36.9 Estimated GFR 51 42 Random Glucose 141 H 127 H Calcium 10.0 D 9.7 B-Natriuretic Peptide 57 ECG Interpretation: EKG from 16 of February with ventricular paced rhythm. Suspect underlying atrial fibrillation. Assessment and Plan (1) Preoperative cardiovascular examination: Status: Acute (2) Amyloid heart disease: Status: Acute (3) Atherosclerotic cardiovascular disease: Status: Acute (4) Chronic a-fib: Status: Acute (5) Presence of Watchman left atrial appendage closure device: Status: Acute (6) Presence of CardioMEMS HF system: Status: Acute Plan Patient with multiple cardiac comorbidities as listed above but generally been stable without any undue exertional shortness of breath or chest pains or any other concerning cardiovascular symptoms. Per surgical notes, urgent exploration required for incarcerated right inguinal hernia. In this context, may proceed as planned. Cardiac risk considered intermediate. Avoid excessive IV fluids during/postprocedure as it might precipitate congestive heart failure. Patient states that he would accept the cardiac risk and would like to proceed. Discussed with Dr. Valverde. Procedures Date of Service Date of Service: 03/05/25
--- NOTE | 2025-03-05 10:28 | PM.PNGS ---
Subjective Subjective Date of Service: 03/05/25 Interval history: pt still with incarcerated inguinal hernia - maybe a little smaller no nausea no bowel movement cardiology saw pt Physical Exam Vital Signs: Vital Signs: Last Vital Signs Temp 96.8 F 03/05/25 07:34 Pulse 61 03/05/25 07:34 Resp 16 03/05/25 07:34 BP 119/55 L 03/05/25 07:34 Pulse Ox 93 03/05/25 07:34 O2 Del Method Room Air 03/05/25 07:34 O2 Flow Rate 5 03/01/25 13:24 BMI result Body Mass Index 19.1 GI: Other: right inguinal hernia incarcerated Objective Data Active Medications Acetaminophen (Acetaminophen 325 Mg Tablet) 650 mg PO Q6H PRN PRN Reason: Pain, Mild 1-3,fever,headache Last Admin: 03/02/25 20:47 Dose: 650 mg Documented By: MELANY Acetazolamide (Acetazolamide 250 Mg Tablet) 125 mg PO MoWeFr [facility] Last Admin: 03/03/25 08:30 Dose: 125 mg Documented By: SUSAN Albuterol/Ipratropium (Albuterol/Iprat 2.5/0.5mg 3 Ml Ampul.Neb) 3 ml INHALE Q4H PRN PRN Reason: Shortness of Breath/Wheezing Atorvastatin Calcium (Atorvastatin Calcium 20 Mg Tablet) 20 mg PO DAILY [facility] Last Admin: 03/05/25 09:22 Dose: 20 mg Documented By: KASSANDRA Calcium Carbonate/Cholecalciferol (Calcium + Vitamin D 250 Mg Tablet) 500 mg PO BIDWM [facility] Last Admin: 03/05/25 09:25 Dose: Not Given Documented By: KASSANDRA Non-Admin Reason: Patient Refused Doxazosin Mesylate (Doxazosin Mesylate 2 Mg Tablet) 8 mg PO DAILY [facility] On Hold: 03/05/25 07:17 Last Admin: 03/04/25 08:58 Dose: 8 mg Documented By: ROBB Empagliflozin (Empagliflozin 10 Mg Tablet) 10 mg PO DAILY [facility] On Hold: 03/05/25 07:17 Last Admin: 03/04/25 08:57 Dose: 10 mg Documented By: ROBB Enoxaparin Sodium (Enoxaparin Sodium 40 Mg/0.4 Ml Syringe) 40 mg SUBCUT Q24H [facility] Last Admin: 03/04/25 15:34 Dose: 40 mg Documented By: ROBB Sodium Chloride (Ns) 1,000 mls @ 100 mls/hr IVCONT .Q10H [facility] Stop: 03/05/25 17:14 Last Admin: 03/05/25 09:26 Dose: 100 mls/hr Documented By: KASSANDRA Ampicillin Sodium/Sulbactam (Sodium 3 gm/ Sodium Chloride) 100 mls @ 200 mls/hr IV Q6H [facility] Last Infusion: 03/05/25 09:05 Dose: Infused Documented By: KASSANDRA Sodium Chloride (Ns) 1,000 mls @ 999 mls/hr IV .Q1H1M [facility] Stop: 03/05/25 11:15 Last Admin: 03/05/25 10:28 Dose: 999 mls/hr Documented By: KASSANDRA Lidocaine (Lidocaine 4 % Patch Adh..Patch) 1 patch TRANSDERMA DAILY [facility]; Protocol Last Admin: 03/05/25 08:26 Dose: 1 patch Documented By: KASSANDRA Magnesium Hydroxide (Milk Of Magnesia 30 Ml Oral.Susp) 30 ml PO DAILY PRN PRN Reason: Constipation Melatonin (Melatonin 3 Mg Tablet) 6 mg PO BEDTIME PRN PRN Reason: Insomnia Methocarbamol (Methocarbamol 750 Mg Tablet) 750 mg PO TID [facility] On Hold: 03/05/25 07:17 Last Admin: 03/04/25 22:51 Dose: Not Given Documented By: MELANY Non-Admin Reason: BP trending low, MD aware Morphine Sulfate (Morphine Sulfate Er 15 Mg Tablet.Er) 15 mg PO Q12H [facility] Last Admin: 03/05/25 09:22 Dose: 15 mg Documented By: KASSANDRA Kaufman Own Vyndamax 61 (Mg) 1 each PO DAILY [facility] Last Admin: 03/05/25 09:24 Dose: 1 each Documented By: KASSANDRA Kaufman Own (Tolvaptan 30 (Mg Tablet)) 1 each PO DAILY [facility] Last Admin: 03/05/25 09:23 Dose: 1 each Documented By: KASSANDRA Ondansetron HCl (Ondansetron Hcl 4 Mg/2 Ml Vial) 4 mg IVPUSH Q8H PRN PRN Reason: Nausea and Vomiting Oxycodone HCl (Oxycodone Hcl Immed Release 5 Mg Tablet) 10 mg PO Q6H PRN PRN Reason: Pain, Moderate(Pain Scale 4-6) Last Admin: 03/04/25 13:06 Dose: 10 mg Documented By: ROBB Polyethylene Glycol (Polyethylene Glycol 3350 17 Gm Powd.Pack) 17 gm PO DAILY [facility] On Hold: 03/05/25 07:17 Last Admin: 03/04/25 08:56 Dose: 17 gm Documented By: ROBB Pregabalin (Pregabalin 150 Mg Capsule) 150 mg PO BID [facility] Last Admin: 03/05/25 09:23 Dose: 150 mg Documented By: KASSANDRA Senna/Docusate Sodium (Sennosides/Docusate Sodium Tablet) 2 tab PO DAILY [facility] On Hold: 03/05/25 07:17 Last Admin: 03/04/25 08:57 Dose: 2 tab Documented By: ROBB Sodium Chloride (0.9 % Sodium Chloride Flush 3 Ml Syringe) [facility] Last Admin: 03/05/25 08:26 Dose: 3 ml Documented By: KASSANDRA Spironolactone (Spironolactone 25 Mg Tablet) 50 mg PO DAILY [facility]; Protocol On Hold: 03/05/25 07:17 Last Admin: 03/04/25 08:57 Dose: 50 mg Documented By: ROBB Torsemide (Torsemide 20 Mg Tablet) 80 mg PO BID [facility]; Protocol On Hold: 03/05/25 07:17 Last Admin: 03/04/25 21:36 Dose: Not Given Documented By: MELANY Non-Admin Reason: Physician Approved Labs 03/05/25 08:14 03/05/25 08:14 Labs: Laboratory Results - last 24 hr 03/04/25 03/05/25 17:45 08:14 MCV 85.4 90.0 MCH 29.6 30.2 MCHC 34.7 33.5 RDW 18.5 H 18.6 H Plt Count 207 D 167 MPV 9.1 L 9.2 L Immature Gran % (Auto) 1.5 H Neut % (Auto) 84.2 H Lymph % (Auto) 4.3 L Perkins % (Auto) 8.8 Eos % (Auto) 0.7 Baso % (Auto) 0.5 Lymph # (Auto) 0.6 L Perkins # (Auto) 1.2 Eos # (Auto) 0.1 Baso # (Auto) 0.1 Abs Immat Gran (auto) 0.20 H Absolute Neuts (auto) 11.2 H Absolute Nucleated RBC 0.000 0.000 Nucleated RBC % (auto) 0.0 0.0 PT 12.0 INR 1.0 Anion Gap 18 18 Estim Creat Clear Calc 43.7 36.9 Estimated GFR 51 42 Random Glucose 141 H 127 H Calcium 10.0 D 9.7 B-Natriuretic Peptide 57 Procedures Date of Service Date of Service: 03/05/25 Progress Note: A&P Assessment and plan (1) Incarcerated right inguinal hernia: Status: Acute Assessment and Plan: plan to go to the OR and repair and reduction of right incar inguinal hernia - pt has already had several operations for this issue and today goal will be to reduce hernia dn relieve obstruction - pt at risk with scarring and mesh for bowel injury requiring resection and possible spermatic cord injury and testicular ischemia requiring orchiectomy - pt knows and agrees with the plan. understands definitve hernia repair with mesh may need to be delayed for another time - todays goals are the emergent issues. pt also seen by cardiology and intermediate risk so goal will be to carry out procedure quickly with minimal operative stress and time. He understands and agrees . Time Spent With Patient Time: Total time managing care of this patient today ____ minutes. Quality Stroke Does the patient have a stroke diagnosis?: No VTE Prior VTE?: No VTE Risk Level:: Medical - moderate - high VTE Device Contraindication: Treatment Not Indicated VTE Drug Contraindication: N/A - Med Ordered
--- NOTE | 2025-03-05 11:33 | HO.PM.IMPN ---
Subjective Subjective Date of Service: 03/05/25 Interval History: c/o more leg cramping than inguinal pain as long as it is not palpated unsuccessful NGT placement x2 yesterday no chest pain or dyspnea Review of Systems Review of Systems: Yes all other systems are reviewed and are negative Physical Exam Vital Signs: Vital Signs: Last Vital Signs Temp 96.8 F 03/05/25 07:34 Pulse 61 03/05/25 07:34 Resp 16 03/05/25 07:34 BP 119/55 L 03/05/25 07:34 Pulse Ox 93 03/05/25 07:34 O2 Del Method Room Air 03/05/25 07:34 O2 Flow Rate 5 03/01/25 13:24 BMI result Body Mass Index 19.1 Gen: in no acute distress HEENT: sclera anicteric, moist mucus membranes Neck: supple, stoma Lungs: clear to auscultation bilaterally Heart: regular rate and rhythm, no murmurs Abd: soft, non-tender, non-distended : large R inguinal hernia Ext: no edema Skin: warm/well-perfused Neuro: alert and oriented x3, no focal findings Psych: appropriate affect Objective Data Active Medications Acetaminophen (Acetaminophen 325 Mg Tablet) 650 mg PO Q6H PRN PRN Reason: Pain, Mild 1-3,fever,headache Last Admin: 03/02/25 20:47 Dose: 650 mg Documented By: MELANY Acetazolamide (Acetazolamide 250 Mg Tablet) 125 mg PO MoWeFr [facility] Last Admin: 03/03/25 08:30 Dose: 125 mg Documented By: SUSAN Albuterol/Ipratropium (Albuterol/Iprat 2.5/0.5mg 3 Ml Ampul.Neb) 3 ml INHALE Q4H PRN PRN Reason: Shortness of Breath/Wheezing Atorvastatin Calcium (Atorvastatin Calcium 20 Mg Tablet) 20 mg PO DAILY [facility] Last Admin: 03/05/25 09:22 Dose: 20 mg Documented By: KASSANDRA Calcium Carbonate/Cholecalciferol (Calcium + Vitamin D 250 Mg Tablet) 500 mg PO BIDWM [facility] Last Admin: 03/05/25 09:25 Dose: Not Given Documented By: KASSANDRA Non-Admin Reason: Patient Refused Doxazosin Mesylate (Doxazosin Mesylate 2 Mg Tablet) 8 mg PO DAILY [facility] On Hold: 03/05/25 07:17 Last Admin: 03/04/25 08:58 Dose: 8 mg Documented By: ROBB Empagliflozin (Empagliflozin 10 Mg Tablet) 10 mg PO DAILY [facility] On Hold: 03/05/25 07:17 Last Admin: 03/04/25 08:57 Dose: 10 mg Documented By: ROBB Enoxaparin Sodium (Enoxaparin Sodium 40 Mg/0.4 Ml Syringe) 40 mg SUBCUT Q24H [facility] Last Admin: 03/04/25 15:34 Dose: 40 mg Documented By: ROBB Sodium Chloride (Ns) 1,000 mls @ 100 mls/hr IVCONT .Q10H [facility] Stop: 03/05/25 17:14 Last Infusion: 03/05/25 10:30 Dose: 0 mls/hr Documented By: KASSANDRA Ampicillin Sodium/Sulbactam (Sodium 3 gm/ Sodium Chloride) 100 mls @ 200 mls/hr IV Q6H [facility] Last Infusion: 03/05/25 09:05 Dose: Infused Documented By: KASSANDRA Lidocaine (Lidocaine 4 % Patch Adh..Patch) 1 patch TRANSDERMA DAILY [facility]; Protocol Last Admin: 03/05/25 08:26 Dose: 1 patch Documented By: KASSANDRA Magnesium Hydroxide (Milk Of Magnesia 30 Ml Oral.Susp) 30 ml PO DAILY PRN PRN Reason: Constipation Melatonin (Melatonin 3 Mg Tablet) 6 mg PO BEDTIME PRN PRN Reason: Insomnia Methocarbamol (Methocarbamol 750 Mg Tablet) 750 mg PO TID [facility] On Hold: 03/05/25 07:17 Last Admin: 03/04/25 22:51 Dose: Not Given Documented By: MELANY Non-Admin Reason: BP trending low, MD aware Morphine Sulfate (Morphine Sulfate Er 15 Mg Tablet.Er) 15 mg PO Q12H [facility] Last Admin: 03/05/25 09:22 Dose: 15 mg Documented By: KASSANDRA Kaufman Own Vyndamax 61 (Mg) 1 each PO DAILY [facility] Last Admin: 03/05/25 09:24 Dose: 1 each Documented By: KASSANDRA Kaufman Own (Tolvaptan 30 (Mg Tablet)) 1 each PO DAILY [facility] Last Admin: 03/05/25 09:23 Dose: 1 each Documented By: KASSANDRA Ondansetron HCl (Ondansetron Hcl 4 Mg/2 Ml Vial) 4 mg IVPUSH Q8H PRN PRN Reason: Nausea and Vomiting Oxycodone HCl (Oxycodone Hcl Immed Release 5 Mg Tablet) 10 mg PO Q6H PRN PRN Reason: Pain, Moderate(Pain Scale 4-6) Last Admin: 03/04/25 13:06 Dose: 10 mg Documented By: ROBB Polyethylene Glycol (Polyethylene Glycol 3350 17 Gm Powd.Pack) 17 gm PO DAILY [facility] On Hold: 03/05/25 07:17 Last Admin: 03/04/25 08:56 Dose: 17 gm Documented By: ROBB Pregabalin (Pregabalin 150 Mg Capsule) 150 mg PO BID [facility] Last Admin: 03/05/25 09:23 Dose: 150 mg Documented By: KASSANDRA Senna/Docusate Sodium (Sennosides/Docusate Sodium Tablet) 2 tab PO DAILY [facility] On Hold: 03/05/25 07:17 Last Admin: 03/04/25 08:57 Dose: 2 tab Documented By: ROBB Sodium Chloride (0.9 % Sodium Chloride Flush 3 Ml Syringe) 3 ml IVFSH [facility] Last Admin: 03/05/25 08:26 Dose: 3 ml Documented By: KASSANDRA Spironolactone (Spironolactone 25 Mg Tablet) 50 mg PO DAILY [facility]; Protocol On Hold: 03/05/25 07:17 Last Admin: 03/04/25 08:57 Dose: 50 mg Documented By: ROBB Torsemide (Torsemide 20 Mg Tablet) 80 mg PO BID [facility]; Protocol On Hold: 03/05/25 07:17 Last Admin: 03/04/25 21:36 Dose: Not Given Documented By: MELANY Non-Admin Reason: Physician Approved Labs 03/05/25 08:14 03/05/25 08:14 Labs: Laboratory Results - last 24 hr 03/04/25 03/05/25 17:45 08:14 MCV 85.4 90.0 MCH 29.6 30.2 MCHC 34.7 33.5 RDW 18.5 H 18.6 H Plt Count 207 D 167 MPV 9.1 L 9.2 L Immature Gran % (Auto) 1.5 H Neut % (Auto) 84.2 H Lymph % (Auto) 4.3 L Vance % (Auto) 8.8 Eos % (Auto) 0.7 Baso % (Auto) 0.5 Lymph # (Auto) 0.6 L Vance # (Auto) 1.2 Eos # (Auto) 0.1 Baso # (Auto) 0.1 Abs Immat Gran (auto) 0.20 H Absolute Neuts (auto) 11.2 H Absolute Nucleated RBC 0.000 0.000 Nucleated RBC % (auto) 0.0 0.0 PT 12.0 INR 1.0 Anion Gap 18 18 Estim Creat Clear Calc 43.7 36.9 Estimated GFR 51 42 Random Glucose 141 H 127 H Calcium 10.0 D 9.7 B-Natriuretic Peptide 57 Assessment and Plan (1) Urinary tract infection: Status: Acute (2) Pneumonia: Status: Acute Plan d5 for 75yo M with chronic hypoNa, CKD2, BPH, HFpEF, CAD, AF, 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, GERD, chronic back pain, sacral fracture send back from [facility] acute rehab due to 2 falls; found to have hypoNa, UTI, and PNA along with multiple rib fractures developed SBO from incarcerated hernia SBO incarcerated inguinal hernia - to OR today for repair and NGT placement - Cardiology consulted given cardiac history; intermediate-risk; no further testing indicated; not in decompensated HF HAYDER, suspect prerenal hypoNa, acute-chronic - will give NS bolus and continuous, recheck lytes in AM - continue tolvaptan multiple rib fractures - pain control with lidocaine patch, MSSR + oxycodone, unable to do IS due to stoma LLL PNA - was on ceftriaxone and doxycycline; amoxicillin-clavulanate 03/03-03/05, change to ampicillin-sulbactam 03/05-03/10 Enterococcus faecalis UTI - ABX as above chronic pain - continue MSSR + prn oxycodone; pregabalin, methocarbamol BPH - hold doxazosin HLD - statin HFpEF - hold empagliflozin, torsemide, spironolactone; continue acetazolamide; followed by [facility] CAD AF - not on anticoagulation presumably due to fall risk amyloidosis - continue tafamidis GERD - PPI laryngeal CA s/p resection, stoma - yearly follow-up with Oncology VTE ppx - enoxaparin dispo - STR In my clinical judgment, the patient requires continued inpatient hospitalization for the following reasons: operative intervention Total time managing care of this patient today: 55 minutes. Quality Stroke Does the patient have a stroke diagnosis?: No VTE Prior VTE?: No VTE Risk Level:: Medical - moderate - high VTE Device Contraindication: Treatment Not Indicated VTE Drug Contraindication: N/A - Med Ordered
--- NOTE | 2025-03-05 12:02 | PC.NURSE ---
Patient off unit for procedure.
--- NOTE | 2025-03-05 17:52 | PC.NURSE ---
Patient returned to unit from OR around 16:10. Patient arrived 88% on room air, patient placed on 2 L tachmask, O2 sat increased to 95%. Crackles heard in right lower lobe, Nicolle notified via [employer], CXR ordered per MD. Patient placed on equipment monitor phototypesetting, MD notified via [employer] of Afib with occasional V-paced and unsustained bradycardic episodes in 50's. Patient sleeping but easily arousable, following commands and communicating appropriately.
--- NOTE | 2025-03-05 18:47 | HO.SKINPHOTO ---
Location: Left [place] Location:Right Forearm Location: Right Inner Arm Location: Right posterior forearm Location: Right upper arm Dressings changed. Old dressings were dated 03/02 and xeroform was dried onto wounds, saline used to remove gently. Cleaned with normal saline, pat dry, xeroform, non-adherent gauze, gauze wrap applied.
--- NOTE | 2025-03-05 21:51 | W.PM.OPN ---
Operative Note Operative Note Date of Service: 03/05/25 Narrative: PREOP DIAGNOSIS--incarcerated right recurrent inguinal hernia causing small bowel obstruction-- Postop diagnosis--same Procedure done was reduction and resection of small bowel hernia with right orchiectomy Surgeon--Gabriel Anesthesia--general anesthesia versus patient's tracheostomy stoma Patient is a 75-year-old male who has had multiple right inguinal hernia repairs with mesh in the past. He has had recurrent hernia which comes and goes reduces on its own but this time it protruded and became incarcerated. Patient was having more tenderness and not passing stool or gas and was noted to have a complete obstruction. Secondary to the concern for repeat surgeries in the inguinal area with a multiple mesh and last time having concerns for the cord structures going to the right testicle we did discuss with the patient the possibility for needing to resect part of the small bowel as well as potentially and ring the vessels to the right testicle necessitating removal secondary to scarring to the mesh. Patient was in agreement with this. Preoperatively this was discussed with Urology who is in agreement that if any concern to the vascular supply of the right testicle was had that it should be removed. Findings patient had a knuckle of small bowel going down towards the scrotal area which was definitely compromised and wound reduced eventually picked up but there were several spots along short segment where there was deep purple findings which was concerned that this may either become stenotic or disintegrate and as a result it was decided to carry out a small-bowel resection. In addition there were pieces of hard balls of mesh fibrotic and stuck to the cord and in the process of dissecting off this mesh there was a clump directly adhere to the cord structures especially the vascular supply which was no longer in the internal ring. In order to remove this the testicular vessels were incorporated and as a result it was decided to carry out the right orchiectomy. Procedure-- Patient was brought to the operative room under Anesthesia guidance was placed under general anesthesia through a tracheostomy tube in his stoma. Weinstein catheter was placed. His abdomen and perineum groin scrotal areas to the upper thighs were prepped and draped in standard surgical fashion. An inguinal incision was created over his previous incisions over a large lump and dissection was carried down to just a mass of scarred mesh. This was carried out with cautery as well as with a scalpel and with the Metzenbaum scissors. We removed a large superficial area of mesh which eventually got as into a plane where we could open up and now fine the bowel. The external oblique aponeurosis was not not well structured. Here we got onto some small bowel going into the scrotal area where there was more mesh balls scar to the cord structures and around the bowel. We were eventually able to free this up such that the small bowel was reduced from the scrotal area and started to eventually pink. There was a segment that was somewhat ischemic looking and we covered this area up with a moist lap pad and continue with the rest of the operation giving it a chance to regain its viability. In doing so we were able to remove more mesh material in order to evaluate the anatomy and come to the floor of the inguinal canal. We are able to follow into a large ball of mesh and spermatic cord structures which probably was the plug mesh that was placed at 1 point in the internal ring. The area really was scarred and compromised and it was decided to carry out the right orchiectomy. The cord structures going down into the scrotum were dissected out of all the scarring and eventually the screw was pushed superiorly and the right testicle brought into the wound. The area was dissected around using cautery until we got to the gubernaculum which was transected with the LigaSure. The spermatic cord proximally was clamped and stick ligated with suture and removed. Specimens sent were the small bowel as well as the cord structures and right testicle. The gubernaculum scrotal sac was examined for any bleeders and this looks nice and dry. Attention was then focused to the small bowel where a point of proximal and distal resection was determined and the bowel resected with the ELSA stapler. The LigaSure was used to come across the mesentery. 3-0 silk sutures were used to approximate the proximal and distal segments of the small bowel through the inguinal incision and then enterotomies were made in the adjacent areas and another ELSA stapler used to fire load to create a [id number] anastomosis. The TA stapler was fired across the openings and then this area imbricated little bit with 3-0 silk Lembert sutures. A small but adequate anastomosis area was palpated and the new small bowel anastomosis bowel was carefully returned to the peritoneal cavity through the internal ring. Now this whole area was irrigated hemostasis achieved and in the process we were able to identify some parts of the shelving edge of the inguinal ligament. The actual opening of the internal ring was somewhat scarred and fibrotic with still more mesh material but this mesh was well incorporated into the surrounding tissue and seemed to go little deeper. A 0 Ethibond suture was used to try to close off the external ring and then the tissue which consisted of the conjoined tendon and maybe external oblique fascia was approximated to the inguinal ligament tissue and interrupted [id number]. Anamika's fascia was then closed and jay used to approximate the skin edges. At the end of the case all sponge instrument needle counts were correct estimated blood loss was about 20 cc specimens sent was the small bowel as well as the right cord and testicle. Patient was extubated returned stable to the recovery room. Weinstein catheter will be left in place.
--- NOTE | 2025-03-06 03:12 | PC.NURSE ---
Pt is noncompliant with fluid restrictions suppose to be NPO except ice chips. states needs ice chip because stoma will dry out.Constantly asking for more ice chips tried to educate pt but insists on having more ice chips.States has ice chips at home at bedside takes all night long.Also explained that only wants him to take sips only.
[2025-03-06 03:23] VITALS: BP 134/63; PULSE 59; RESP 16; TEMP 36.3; O2SAT 95
[2025-03-06 06:03] LABS: Hematocrit 32.7 % (42.0-52.0); Hemoglobin 11.2 g/dl (14.0-18.0); Mean Corpuscular HGB Conc 34.3 g/dl (31.0-36.0); Mean Corpuscular Hemoglobin 29.9 pg (27.0-33.0); Mean Corpuscular Volume 87.4 fL (80.0-98.0); NRBC Abs Auto 0.000 X10*3/uL (0.0-0.012); NRBC Pct Auto 0.0 /100WBC (0.0-0.2); Platelet Count 202 X10*3/uL (160-400); Red Blood Count 3.74 X10*6/uL (4.60-5.80); White Blood Count 16.3 X10*3/uL (4.8-10.8)
[2025-03-06 06:19] LABS: Anion Gap 14 (12-20); Blood Urea Nitrogen 33 mg/dL (9-16); Calcium 8.8 mg/dL (8.4-10.2); Carbon Dioxide 23 mmol/L (22-29); Chloride 96 mmol/L (96-108); Creatinine Clr Calc Pharmacy 53.6; Estimated Glomerular Filt Rate > 60; Potassium 4.0 mmol/L (3.3-5.1); Sodium 129 mmol/L (135-145)
[2025-03-06 07:45] VITALS: BP 131/59; PULSE 63; RESP 16; TEMP 37.1; O2SAT 95
--- NOTE | 2025-03-06 08:07 | P.PNGS_ITS ---
Subjective Subjective Date of Service: 03/06/25 <Haroldo Langston PA-C - Last Filed: 03/06/25 08:23> 03/07/25 <Poncho Montgomery MD - Last Filed: 03/07/25 08:43> Interval history: patient doing well, complains of mild pain at the incision site. Endorses mild nausea. Denies fever, chills. Denies passing flatus or BM. Has not ambulated yet due to howell. States his throat is very dry and needs at least ice chips <Haroldo Langston PA-C - Last Filed: 03/06/25 08:23> Physical Exam 2 Vital Signs: Vital Signs: Last Vital Signs Temp 98.7 F 03/06/25 07:45 Pulse 63 03/06/25 07:45 Resp 16 03/06/25 07:45 BP 131/59 L 03/06/25 07:45 Pulse Ox 95 03/06/25 07:45 O2 Del Method Room Air 03/06/25 07:45 O2 Flow Rate 2 03/05/25 16:00 BMI result Body Mass Index 19.1 <Haroldo Langston PA-C - Last Filed: 03/06/25 08:23> Const: General: comfortable and no acute distress <Haroldo Langston PA-C - Last Filed: 03/06/25 08:23> Orientation/consciousness: patient oriented x3 <Haroldo Langston PA-C - Last Filed: 03/06/25 08:23> GI: Other: right inguinal hernia repair site, incision is tender. dressings in place. <Haroldo Langston PA-C - Last Filed: 03/06/25 08:23> Inspection: Yes distended (mild) <Haroldo Langston PA-C - Last Filed: 03/06/25 08:23> Palpation (GI): Soft to palpation, Tenderness to palpation present (GI) (incision site), no guarding and not rigid <Haroldo Langston PA-C - Last Filed: 03/06/25 08:23> Neuro: General: patient oriented x3 <KHRIS Motley Last Filed: 03/06/25 08:23> Objective Data Active Medications Acetaminophen (Acetaminophen 325 Mg Tablet) 650 mg PO Q6H PRN PRN Reason: Pain, Mild 1-3,fever,headache Last Admin: 03/02/25 20:47 Dose: 650 mg Documented By: CASTILInez Acetazolamide (Acetazolamide 250 Mg Tablet) 125 mg PO MoWeFr [facility] On Hold: 03/05/25 16:12 Last Admin: 03/03/25 08:30 Dose: 125 mg Documented By: SUSAN Albuterol/Ipratropium (Albuterol/Iprat 2.5/0.5mg 3 Ml Ampul.Neb) 3 ml INHALE Q4H PRN PRN Reason: Shortness of Breath/Wheezing Atorvastatin Calcium (Atorvastatin Calcium 20 Mg Tablet) 20 mg PO DAILY [facility] Last Admin: 03/05/25 09:22 Dose: 20 mg Documented By: KASSANDRA Calcium Carbonate/Cholecalciferol (Calcium + Vitamin D 250 Mg Tablet) 500 mg PO BIDWM [facility] Last Admin: 03/05/25 18:44 Dose: Not Given Documented By: KASSANDRA Non-Admin Reason: Patient Refused Doxazosin Mesylate (Doxazosin Mesylate 2 Mg Tablet) 8 mg PO DAILY [facility] Last Admin: 03/04/25 08:58 Dose: 8 mg Documented By: ROBB Enoxaparin Sodium (Enoxaparin Sodium 40 Mg/0.4 Ml Syringe) 40 mg SUBCUT Q24H [facility] Last Admin: 03/05/25 15:00 Dose: Not Given Documented By: KASSANDRA Non-Admin Reason: Off Unit: Surgery Ampicillin Sodium/Sulbactam (Sodium 3 gm/ Sodium Chloride) 100 mls @ 200 mls/hr IV Q6H [facility] Last Infusion: 03/06/25 02:15 Dose: Infused Documented By: ESTELA Sodium Chloride (Ns) 1,000 mls @ 100 mls/hr IVCONT .Q10H [facility] On Hold: 03/05/25 17:53 Last Admin: 03/05/25 16:58 Dose: Not Given Documented By: KASSANDRA Non-Admin Reason: Duplicate Order Lidocaine (Lidocaine 4 % Patch Adh..Patch) 1 patch TRANSDERMA DAILY [facility]; Protocol Last Admin: 03/05/25 08:26 Dose: 1 patch Documented By: KASSANDRA Magnesium Hydroxide (Milk Of Magnesia 30 Ml Oral.Susp) 30 ml PO DAILY PRN PRN Reason: Constipation Melatonin (Melatonin 3 Mg Tablet) 6 mg PO BEDTIME PRN PRN Reason: Insomnia Morphine Sulfate (Morphine Sulfate Er 15 Mg Tablet.Er) 15 mg PO Q12H [facility] Last Admin: 03/05/25 20:40 Dose: 15 mg Documented By: ESTELA Morphine Sulfate (Morphine Sulfate 4 Mg/Ml Cartridge) 3 mg IVPUSH Q4H PRN; Protocol PRN Reason: Pain, Severe (Pain Scale 7-10) Last Admin: 03/06/25 06:20 Dose: 3 mg Documented By: ESTELA Pt Own Vyndamax 61 (Mg) 1 each PO DAILY [facility] Last Admin: 03/05/25 09:24 Dose: 1 each Documented By: KASSANDRA Pt Own (Tolvaptan 30 (Mg Tablet)) 1 each PO DAILY [facility] Last Admin: 03/05/25 09:23 Dose: 1 each Documented By: KASSANDRA Ondansetron HCl (Ondansetron Hcl 4 Mg/2 Ml Vial) 4 mg IVPUSH Q8H PRN PRN Reason: Nausea and Vomiting Oxycodone HCl (Oxycodone Hcl Immed Release 5 Mg Tablet) 10 mg PO Q6H PRN PRN Reason: Pain, Moderate(Pain Scale 4-6) Last Admin: 03/04/25 13:06 Dose: 10 mg Documented By: ROBB Pregabalin (Pregabalin 150 Mg Capsule) 150 mg PO BID [facility] Last Admin: 03/05/25 20:40 Dose: 150 mg Documented By: ESTELA Senna/Docusate Sodium (Sennosides/Docusate Sodium Tablet) 2 tab PO DAILY [facility] Last Admin: 03/04/25 08:57 Dose: 2 tab Documented By: ROBB Sodium Chloride (0.9 % Sodium Chloride Flush 3 Ml Syringe) 3 ml IVFLUSH QSHIFT [facility] Last Admin: 03/05/25 20:45 Dose: Not Given Documented By: ESTELA Non-Admin Reason: IV Running Torsemide (Torsemide 20 Mg Tablet) 80 mg PO BID [facility]; Protocol Last Admin: 03/05/25 20:40 Dose: 80 mg Documented By: ESTELA <Haroldo Langston PA-C - Last Filed: 03/06/25 08:23> Labs CBC & Chem 7: 03/07/25 05:15 07/01/25 05:15 <Haroldo Langston PA-C - Last Filed: 03/06/25 08:23> Labs: Laboratory Results - last 24 hr 03/05/25 03/06/25 08:14 05:35 MCV 90.0 87.4 MCH 30.2 29.9 MCHC 33.5 34.3 RDW 18.6 H 18.0 H Plt Count 167 202 MPV 9.2 L 9.4 Immature Gran % (Auto) 1.5 H Neut % (Auto) 84.2 H Lymph % (Auto) 4.3 L [place] % (Auto) 8.8 Eos % (Auto) 0.7 Baso % (Auto) 0.5 Lymph # (Auto) 0.6 L [place] # (Auto) 1.2 Eos # (Auto) 0.1 Baso # (Auto) 0.1 Abs Immat Gran (auto) 0.20 H Absolute Neuts (auto) 11.2 H Absolute Nucleated RBC 0.000 0.000 Nucleated RBC % (auto) 0.0 0.0 PT 12.0 INR 1.0 Anion Gap 18 14 Estim Creat Clear Calc 36.9 53.6 Estimated GFR 42 > 60 Random Glucose 127 H 117 H Calcium 9.7 8.8 D <Haroldo Langston PA-C - Last Filed: 03/06/25 08:23> Procedures Date of Service Date of Service: 03/06/25 <Haroldo Langston PA-C - Last Filed: 03/06/25 08:23> 03/07/25 <Poncho Montgomery MD - Last Filed: 03/07/25 08:43> Progress Note: A&P Assessment and plan (1) Incarcerated right inguinal hernia: Status: Acute <Haroldo Langston PA-C - Last Filed: 03/06/25 08:23> Assessment and Plan: History reviewed Underwent resection of incarcerated small bowel within recurrent hernia Dressings dry Abdomen is soft No nausea or vomiting Okay to trial clear liquids today Pain management Seen and examined independently <Poncho Montgomery MD - Last Filed: 03/07/25 08:43> (2) S/P inguinal hernia repair: Status: Acute <Haroldo Langston PA-C - Last Filed: 03/06/25 08:23> (3) S/P small bowel resection: Status: Acute <Haroldo Langston PA-C - Last Filed: 03/06/25 08:23> Assessment and Plan: 75 year old male POD 1 s/p repair of a right inguinal hernia repair with small bowel resection and right orchiectomy. Patient doing well, experiencing mild pain at the incision site and mild nausea. Denies fever, chill, vomiting. He has not passed flatus or BM. On exam the abdomen is mildly distended, tender around the incision site. Dressings remain in place, will remove tomorrow. Will D/c howell, patient okay to start with clear liquid diet. recommended small volume at a time, if symptomatic, would hold diet. Patient understands this plan. remove howell Advance to clear liquid diet, patient okay to have ice chips as needed for soothing throat. ambulation and spirometry as tolerated <Haroldo Langston PA-C - Last Filed: 03/06/25 08:23> Time Spent With Patient Time: Total time managing care of this patient today ____ minutes. <Haroldo Langston PA-C - Last Filed: 03/06/25 08:23> Quality Stroke Does the patient have a stroke diagnosis?: No <Haroldo Langston PA-C - Last Filed: 03/06/25 08:23> VTE Prior VTE?: No <Haroldo Langston PA-C - Last Filed: 03/06/25 08:23> VTE Risk Level:: Medical - moderate - high <KHRIS Motley Last Filed: 03/06/25 08:23> VTE Device Contraindication: Treatment Not Indicated <Haroldo Langston PA-C - Last Filed: 03/06/25 08:23> VTE Drug Contraindication: N/A - Med Ordered <Haroldo Langston PA-C - Last Filed: 03/06/25 08:23>
[2025-03-06] MEDS: VYNDAMAX 61 MG 1 EACH PO (08:52)
[2025-03-06] MEDS: TOLVAPTAN 30 MG 1 EACH PO (08:53)
[2025-03-06 08:54] VITALS: BP 131/59
[2025-03-06] MEDS: Morphine Sulfate ER 15 MG TABLET.ER PO (08:54)
[2025-03-06] MEDS: Lidocaine 4 % Patch ADH..PATCH 1 PATCH TRANSDERMA (08:55)
[2025-03-06] MEDS: 0.9 % Sodium Chloride Flush 3 ML SYRINGE IVFLUSH ×3 (09:11→21:19)
--- NOTE | 2025-03-06 09:51 | HO.PM.IMPN ---
Subjective Subjective Date of Service: 03/06/25 Interval History: was short of breath after surgery minimal abdominal/inguinal discomfort no flatus or BM yet Review of Systems Review of Systems: Yes all other systems are reviewed and are negative Physical Exam Vital Signs: Vital Signs: Last Vital Signs Temp 98.7 F 03/06/25 07:45 Pulse 63 03/06/25 07:45 Resp 16 03/06/25 07:45 BP 131/59 L 03/06/25 08:54 Pulse Ox 95 03/06/25 07:45 O2 Del Method Room Air 03/06/25 07:45 O2 Flow Rate 2 03/05/25 16:00 BMI result Body Mass Index 19.1 Gen: in no acute distress HEENT: sclera anicteric, moist mucus membranes Neck: supple, stoma, uses electrolarynx Lungs: clear to auscultation bilaterally Heart: regular rate and rhythm, no murmurs Abd: soft, non-tender, non-distended, R inguinal incision with dry dressing, active bowel sounds x 4 quadrants Ext: no edema Skin: warm/well-perfused Neuro: alert and oriented x3, no focal findings Psych: appropriate affect Objective Data Active Medications Acetaminophen (Acetaminophen 325 Mg Tablet) 650 mg PO Q6H PRN PRN Reason: Pain, Mild 1-3,fever,headache Last Admin: 03/02/25 20:47 Dose: 650 mg Documented By: MELANY Acetazolamide (Acetazolamide 250 Mg Tablet) 125 mg PO MoWeFr [facility] On Hold: 03/05/25 16:12 Last Admin: 03/03/25 08:30 Dose: 125 mg Documented By: SUSAN Albuterol/Ipratropium (Albuterol/Iprat 2.5/0.5mg 3 Ml Ampul.Neb) 3 ml INHALE Q4H PRN PRN Reason: Shortness of Breath/Wheezing Atorvastatin Calcium (Atorvastatin Calcium 20 Mg Tablet) 20 mg PO DAILY [facility] Last Admin: 03/06/25 09:11 Dose: Not Given Documented By: JUNIOR Non-Admin Reason: Patient Refused Calcium Carbonate/Cholecalciferol (Calcium + Vitamin D 250 Mg Tablet) 500 mg PO BIDWM [facility] Last Admin: 03/06/25 09:11 Dose: Not Given Documented By: JUNIOR Non-Admin Reason: Patient Refused Doxazosin Mesylate (Doxazosin Mesylate 2 Mg Tablet) 8 mg PO DAILY [facility] Last Admin: 03/06/25 09:11 Dose: Not Given Documented By: JUNIOR Non-Admin Reason: Patient Refused Enoxaparin Sodium (Enoxaparin Sodium 40 Mg/0.4 Ml Syringe) 40 mg SUBCUT Q24H [facility] Last Admin: 03/05/25 15:00 Dose: Not Given Documented By: KASSANDRA Non-Admin Reason: Off Unit: Surgery Ampicillin Sodium/Sulbactam (Sodium 3 gm/ Sodium Chloride) 100 mls @ 200 mls/hr IV Q6H [facility] Last Infusion: 03/06/25 09:29 Dose: Infused Documented By: JUNIOR Sodium Chloride (Ns) 1,000 mls @ 100 mls/hr IVCONT .Q10H [facility] On Hold: 03/05/25 17:53 Last Admin: 03/05/25 16:58 Dose: Not Given Documented By: KASSANDRA Non-Admin Reason: Duplicate Order Lidocaine (Lidocaine 4 % Patch Adh..Patch) 1 patch TRANSDERMA DAILY [facility]; Protocol Last Admin: 03/06/25 08:55 Dose: 1 patch Documented By: JUNIOR Magnesium Hydroxide (Milk Of Magnesia 30 Ml Oral.Susp) 30 ml PO DAILY PRN PRN Reason: Constipation Melatonin (Melatonin 3 Mg Tablet) 6 mg PO BEDTIME PRN PRN Reason: Insomnia Morphine Sulfate (Morphine Sulfate Er 15 Mg Tablet.Er) 15 mg PO Q12H [facility] Last Admin: 03/06/25 08:54 Dose: 15 mg Documented By: JUNIOR Morphine Sulfate (Morphine Sulfate 4 Mg/Ml Cartridge) 3 mg IVPUSH Q4H PRN; Protocol PRN Reason: Pain, Severe (Pain Scale 7-10) Last Admin: 03/06/25 06:20 Dose: 3 mg Documented By: ESTELA Pt Own Vyndamax 61 (Mg) 1 each PO DAILY [facility] Last Admin: 03/06/25 08:52 Dose: 1 each Documented By: JUNIOR Pt Own (Tolvaptan 30 (Mg Tablet)) 1 each PO DAILY [facility] Last Admin: 03/06/25 08:53 Dose: 1 each Documented By: JUNIOR Ondansetron HCl (Ondansetron Hcl 4 Mg/2 Ml Vial) 4 mg IVPUSH Q8H PRN PRN Reason: Nausea and Vomiting Oxycodone HCl (Oxycodone Hcl Immed Release 5 Mg Tablet) 10 mg PO Q6H PRN PRN Reason: Pain, Moderate(Pain Scale 4-6) Last Admin: 03/04/25 13:06 Dose: 10 mg Documented By: ROBB Pregabalin (Pregabalin 150 Mg Capsule) 150 mg PO BID [facility] Last Admin: 03/06/25 08:54 Dose: 150 mg Documented By: JUNIOR Senna/Docusate Sodium (Sennosides/Docusate Sodium Tablet) 2 tab PO DAILY [facility] Last Admin: 03/06/25 08:54 Dose: 2 tab Documented By: JUNIOR Sodium Chloride (0.9 % Sodium Chloride Flush 3 Ml Syringe) 3 ml IVFLUSH QSHIFT [facility] Last Admin: 03/06/25 09:11 Dose: 3 ml Documented By: JUNIOR Torsemide (Torsemide 20 Mg Tablet) 80 mg PO BID [facility]; Protocol Last Admin: 03/06/25 08:54 Dose: 80 mg Documented By: JUNIOR Labs 03/06/25 05:35 03/06/25 05:35 Labs: Laboratory Results - last 24 hr 03/06/25 05:35 MCV 87.4 MCH 29.9 MCHC 34.3 RDW 18.0 H Plt Count 202 MPV 9.4 Absolute Nucleated RBC 0.000 Nucleated RBC % (auto) 0.0 Anion Gap 14 Estim Creat Clear Calc 53.6 Estimated GFR > 60 Random Glucose 117 H Calcium 8.8 D Assessment and Plan (1) Urinary tract infection: Status: Acute (2) Pneumonia: Status: Acute Plan d6 for 75yo M with chronic hypoNa, CKD2, BPH, HFpEF, CAD, AF, 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 but then developed SBO from incarcerated hernia SBO incarcerated inguinal hernia - POD1 open repair of right inguinal hernia repair with small bowel resection and right orchiectomy - Surgery following, advance to clears today HAYDER, suspect prerenal hypoNa, acute-chronic - resolved with NS fluid resuscitation; continue tolvaptan; recheck BMP tomorrow multiple rib fractures - pain control with lidocaine patch, MSSR + oxycodone, unable to do IS due to stoma LLL PNA - was on ceftriaxone and doxycycline; amoxicillin-clavulanate 03/03-03/05, changed to ampicillin-sulbactam 03/05-03/06 while NPO, change back to amoxicillin-clavulanate 03/06-03/10 Enterococcus faecalis UTI - amoxicillin-clavulanate as above chronic pain - continue MSSR + prn oxycodone; pregabalin, methocarbamol BPH - resume doxazosin HLD - statin HFpEF - resume empagliflozin, torsemide, spironolactone; continue acetazolamide; followed by [facility] [facility] amyloidosis - continue tafamidis CAD AF - not on anticoagulation presumably due to fall risk GERD - PPI laryngeal CA s/p resection, stoma - yearly follow-up with Oncology VTE ppx - enoxaparin dispo - STR In my clinical judgment, the patient requires continued inpatient hospitalization for the following reasons: postop care Total time managing care of this patient today: 50 minutes. Quality Stroke Does the patient have a stroke diagnosis?: No VTE Prior VTE?: No VTE Risk Level:: Medical - moderate - high VTE Device Contraindication: Treatment Not Indicated VTE Drug Contraindication: N/A - Med Ordered
--- NOTE | 2025-03-06 10:57 | HO.POSTANES ---
Post Anesthesia Evaluation Post Anesthesia Evaluation Date of Service: 03/06/25 Vital Signs: Vital Signs Temp Pulse Resp BP Pulse Ox O2 Del Method 03/06/25 08:54 131/59 L 03/06/25 07:45 98.7 F 63 16 131/59 L 95 Room Air 03/06/25 03:23 97.3 F 59 16 134/63 95 Room Air 03/05/25 23:56 97.3 F 86 22 H 146/65 H 96 Room Air Anesthesia: General Mental Status: Awake Pain Control: Satisfactory Nausea/Vomiting: None Hydration: Adequate Anesthesia-Related Issues: No Anes. Related Issues
--- NOTE | 2025-03-06 11:36 | PC.NURSE ---
howell catheter removed at 1030 by this RN, catheter intact at time of removal, pt tolerated well, given education on being due to void within the next 6 hours, urinal provided but also encouraged to use bathroom with assist.
[2025-03-06 13:34] VITALS: BMI 19.1
--- NOTE | 2025-03-06 13:46 | MHC.CLN ---
NUTRITION CLEAR LIQUID DIET. PATIENT TASTED ENSURE CLEAR AND WOULD LIKE. EACH ENSURE CLEAR SUPPLEMENT PROVIDES 240 KCALS, 8 G PROTEIN. DS TO SEND TWICE DAILY AND PATIENT ADVISED THAT COULD SAVE UNOPENED PRODUCT FOR ANOTHER TIME. QUALIFIES MODERATELY MALNOURISHED IN THE CONTEXT OF CHRONIC ILLNESS. MODERATE DEPLETION OF BODY FAT AND MUSCLE MASS NOTED. SIGNIFICANT WEIGHT LOSS X ONE YEAR, -23%. FOLLOW FOR DIET ADVANCEMENT AND PO INTAKE. SEE CLINICAL NUTRITION ASSESSMENT 03/06/25.
--- NOTE | 2025-03-06 13:52 | MHC.CM.PN ---
PT NOT YET MEDICALLY CLEARED, REQUIRING POST OP CARE DCP: STR AT [facility] VIA BLS
[2025-03-06 15:42] VITALS: BP 152/67; PULSE 66; RESP 18; TEMP 36.8; O2SAT 94
--- NOTE | 2025-03-06 16:16 | PM.EVENT ---
Event Note Date of Service: 03/06/25 Event Note: Seen on afternoon rounds He says he is comfortable Tolerating clear liquids Abdomen is soft and benign He says he feels well overall if he has good GI function tomorrow, we can advance diet his Time Spent With Patient Time: Total time managing care of this patient today ____ minutes.
[2025-03-06] MEDS: Calcium + Vitamin D 250 MG TABLET 500 MG PO (16:21)
[2025-03-06 17:31] VITALS: BP 152/67
[2025-03-06 19:27] VITALS: BP 116/59; PULSE 63; RESP 16; TEMP 36.8; O2SAT 91
[2025-03-07 03:09] VITALS: BP 127/62; PULSE 76; RESP 20; TEMP 36.5; O2SAT 95
[2025-03-07 05:45] LABS: Hematocrit 34.6 % (42.0-52.0); Hemoglobin 11.9 g/dl (14.0-18.0); Mean Corpuscular HGB Conc 34.4 g/dl (31.0-36.0); Mean Corpuscular Hemoglobin 29.8 pg (27.0-33.0); Mean Corpuscular Volume 86.7 fL (80.0-98.0); NRBC Abs Auto 0.000 X10*3/uL (0.0-0.012); NRBC Pct Auto 0.0 /100WBC (0.0-0.2); Platelet Count 212 X10*3/uL (160-400); Red Blood Count 3.99 X10*6/uL (4.60-5.80); White Blood Count 16.1 X10*3/uL (4.8-10.8)
[2025-03-07 06:07] LABS: Anion Gap 20 (12-20); Blood Urea Nitrogen 36 mg/dL (9-16); Calcium 9.8 mg/dL (8.4-10.2); Carbon Dioxide 27 mmol/L (22-29); Chloride 87 mmol/L (96-108); Creatinine Clr Calc Pharmacy 41.3; Estimated Glomerular Filt Rate 48; Potassium 3.9 mmol/L (3.3-5.1); Sodium 130 mmol/L (135-145)
[2025-03-07] MEDS: diazePAM 10 MG/2 ML CARTRIDGE 2.5 MG IVPUSH (06:29)
--- NOTE | 2025-03-07 07:00 | PC.NURSE ---
at 1258 pt vomited about 400 ml green . abdomen distended has + bs hypoactive , pt reports no gas , ambulated to br to void no bm . medicated for pain with morphine iv. stoma open some secretions noted .
[2025-03-07 07:15] VITALS: BP 109/51; PULSE 60; RESP 14; TEMP 36.7; O2SAT 92
--- NOTE | 2025-03-07 07:32 | P.PNGS_ITS ---
Subjective Subjective Date of Service: 03/07/25 <Haroldo Langston PA-C - Last Filed: 03/07/25 08:44> 03/07/25 <Poncho Montgomery MD - Last Filed: 03/07/25 08:43> Interval history: patient experiencing more pain and bloating in the abdomen. nauseous, multiple episodes of vomiting. States he was unable to keep anything down starting yesterday afternoon. He endorses 1 large episode of flatus this morning but nothing since. Denies bowel movement. He states he was able to ambulate in the [place] however got fatigued needed assistance back to the room, he has been able to ambulate to the bathroom with assistance. Denies fever, chills <KHRIS Motley Last Filed: 03/07/25 08:44> Physical Exam 2 Vital Signs: Vital Signs: Last Vital Signs Temp 98.0 F 03/07/25 07:15 Pulse 60 03/07/25 07:15 Resp 14 03/07/25 07:15 BP 109/51 L 03/07/25 07:15 Pulse Ox 92 03/07/25 07:15 O2 Del Method Room Air 03/07/25 07:15 O2 Flow Rate 2 03/05/25 16:00 BMI result Body Mass Index 19.1 <KHRIS Motley Last Filed: 03/07/25 08:44> Const: General: no acute distress; No comfortable <Haroldo Langston PA-C - Last Filed: 03/07/25 08:44> Orientation/consciousness: patient oriented x3 <KHRIS Motley Last Filed: 03/07/25 08:44> Resp: Effort & Inspection: normal respiratory effort and able to speak in complete sentences <Haroldo Langston PA-C - Last Filed: 03/07/25 08:44> GI: Other: incision site appears clean dry and intact. jay in place mildly tender to palpation <KHRIS Motley Last Filed: 03/07/25 08:44> Inspection: Yes distended (moderate ) <KHRIS Motley Last Filed: 03/07/25 08:44> Palpation (GI): Soft to palpation, not firm, Tenderness to palpation present (GI) (lower abdomen), no guarding and not rigid <Haroldo Langston PA-C - Last Filed: 03/07/25 08:44> Percussion: Yes tympanic to percussion <Haroldo Langston PA-C - Last Filed: 03/07/25 08:44> Neuro: General: patient oriented x3 <Haroldo Langston PA-C - Last Filed: 03/07/25 08:44> Objective Data Active Medications Acetaminophen (Acetaminophen 325 Mg Tablet) 650 mg PO Q6H PRN PRN Reason: Pain, Mild 1-3,fever,headache Last Admin: 03/02/25 20:47 Dose: 650 mg Documented By: MELANY Acetazolamide (Acetazolamide 250 Mg Tablet) 125 mg PO MoWeFr [facility] On Hold: 03/05/25 16:12 Resume: 03/08/25 09:00 Last Admin: 03/03/25 08:30 Dose: 125 mg Documented By: SUSAN Albuterol/Ipratropium (Albuterol/Iprat 2.5/0.5mg 3 Ml Ampul.Neb) 3 ml INHALE Q4H PRN PRN Reason: Shortness of Breath/Wheezing Amoxicillin/Clavulanate Potassium (Amoxicillin/Potassium Clav 875 Mg Tablet) 875 mg PO Q12H [facility] Last Admin: 03/06/25 22:15 Dose: Not Given Documented By: PEPITO Non-Admin Reason: pu unable to take MD sesar Atorvastatin Calcium (Atorvastatin Calcium 20 Mg Tablet) 20 mg PO DAILY [facility] Last Admin: 03/06/25 09:11 Dose: Not Given Documented By: JUNIOR Non-Admin Reason: Patient Refused Calcium Carbonate/Cholecalciferol (Calcium + Vitamin D 250 Mg Tablet) 500 mg PO BIDWM [facility] Last Admin: 03/06/25 16:21 Dose: 500 mg Documented By: JUNIOR Doxazosin Mesylate (Doxazosin Mesylate 2 Mg Tablet) 8 mg PO DAILY [facility] Last Admin: 03/06/25 09:11 Dose: Not Given Documented By: JUNIOR Non-Admin Reason: Patient Refused Empagliflozin (Empagliflozin 10 Mg Tablet) 10 mg PO DAILY [facility] Enoxaparin Sodium (Enoxaparin Sodium 40 Mg/0.4 Ml Syringe) 40 mg SUBCUT Q24H [facility] Last Admin: 03/06/25 16:21 Dose: 40 mg Documented By: JUNIOR Sodium Chloride (Ns) 1,000 mls @ 100 mls/hr IVCONT .Q10H [facility] On Hold: 03/05/25 17:53 Last Admin: 03/05/25 16:58 Dose: Not Given Documented By: KASSANDRA Non-Admin Reason: Duplicate Order Lidocaine (Lidocaine 4 % Patch Adh..Patch) 1 patch TRANSDERMA DAILY [facility]; Protocol Last Admin: 03/06/25 08:55 Dose: 1 patch Documented By: JUNIOR Magnesium Hydroxide (Milk Of Magnesia 30 Ml Oral.Susp) 30 ml PO DAILY PRN PRN Reason: Constipation Melatonin (Melatonin 3 Mg Tablet) 6 mg PO BEDTIME PRN PRN Reason: Insomnia Morphine Sulfate (Morphine Sulfate Er 15 Mg Tablet.Er) 15 mg PO Q12H [facility] Last Admin: 03/06/25 22:12 Dose: Not Given Documented By: PEPITO Non-Admin Reason: unable to take MD aware Morphine Sulfate (Morphine Sulfate 4 Mg/Ml Cartridge) 3 mg IVPUSH Q4H PRN; Protocol PRN Reason: Pain, Severe (Pain Scale 7-10) Last Admin: 03/07/25 01:35 Dose: 3 mg Documented By: YULIET Pt Own Vyndamax 61 (Mg) 1 each PO DAILY [facility] Last Admin: 03/06/25 08:52 Dose: 1 each Documented By: JUNIOR Pt Own (Tolvaptan 30 (Mg Tablet)) 1 each PO DAILY [facility] Last Admin: 03/06/25 08:53 Dose: 1 each Documented By: JUNIOR Ondansetron HCl (Ondansetron Hcl 4 Mg/2 Ml Vial) 4 mg IVPUSH Q8H PRN PRN Reason: Nausea and Vomiting Last Admin: 03/07/25 04:20 Dose: 4 mg Documented By: DAVID Oxycodone HCl (Oxycodone Hcl Immed Release 5 Mg Tablet) 10 mg PO Q6H PRN PRN Reason: Pain, Moderate(Pain Scale 4-6) Last Admin: 03/04/25 13:06 Dose: 10 mg Documented By: ROBB Pregabalin (Pregabalin 150 Mg Capsule) 150 mg PO BID [facility] Last Admin: 03/06/25 22:11 Dose: Not Given Documented By: PEPITO Non-Admin Reason: unable to take MD sesar Senna/Docusate Sodium (Sennosides/Docusate Sodium Tablet) 2 tab PO DAILY [facility] Last Admin: 03/06/25 08:54 Dose: 2 tab Documented By: JUNIOR Sodium Chloride (0.9 % Sodium Chloride Flush 3 Ml Syringe) 3 ml IVFLUSH QSHIFT [facility] Last Admin: 03/06/25 21:19 Dose: 3 ml Documented By: PEPITO Spironolactone (Spironolactone 25 Mg Tablet) 50 mg PO BID@0900,1800 [facility]; Protocol Last Admin: 03/06/25 17:31 Dose: 50 mg Documented By: JUNIOR Torsemide (Torsemide 20 Mg Tablet) 80 mg PO BID [facility]; Protocol Last Admin: 03/06/25 22:13 Dose: Not Given Documented By: PEPITO Non-Admin Reason: unable to take MD aware <Haroldo Langston PA-C - Last Filed: 03/07/25 08:44> Labs CBC & Chem 7: 03/07/25 05:15 03/07/25 05:15 <Haroldo Langston PA-C - Last Filed: 03/07/25 08:44> Labs: Laboratory Results - last 24 hr 03/07/25 05:15 MCV 86.7 MCH 29.8 MCHC 34.4 RDW 17.4 H Plt Count 212 MPV 9.1 L Absolute Nucleated RBC 0.000 Nucleated RBC % (auto) 0.0 Anion Gap 20 Estim Creat Clear Calc 41.3 Estimated GFR 48 Random Glucose 138 H Calcium 9.8 D <Haroldo Langston PA-C - Last Filed: 03/07/25 08:44> Microbiology Microbiology Results: Microbiology 03/01/25 13:21 Blood Culture - Final Blood - Venous No growth after 5 days. 03/01/25 13:21 Blood Culture - Final Blood - Venous No growth after 5 days. <Haroldo Langston PA-C - Last Filed: 03/07/25 08:44> Procedures Date of Service Date of Service: 03/07/25 <Haroldo Langston PA-C - Last Filed: 03/07/25 08:44> 03/07/25 <Poncho Montgomery MD - Last Filed: 03/07/25 08:43> Progress Note: A&P Assessment and plan (1) S/P small bowel resection: Status: Acute <Haroldo Langston PA-C - Last Filed: 03/07/25 08:44> Assessment and Plan: Had nausea and vomiting overnight Abdomen is soft although distended Incision clean and dry, repair site intact without evidence of recurrence currently We will keep on ice chips for now IV fluids He understands that if he continues to have vomiting, he may benefit from NG tube placement Looks well overall Seen and examined independently <Poncho Montgomery MD - Last Filed: 03/07/25 08:43> (2) S/P inguinal hernia repair: Status: Acute <Haroldo Langston PA-C - Last Filed: 03/07/25 08:44> (3) S/P orchiectomy: Status: Acute <Haroldo Langston PA-C - Last Filed: 03/07/25 08:44> Assessment and Plan: 75-year-old male postop day 2 status post right inguinal hernia repair, small-bowel resection, right orchiectomy. Patient now experiencing bloating, nausea, vomiting that started yesterday afternoon. Difficulty tolerating clear liquid diet. Passing minimal flatus, no bowel movement. Patient has been trying to ambulate more, had some difficulty, will need assistance. Abdomen is distended and tympanic this morning, remains soft mild tenderness to palpation in the lower abdomen Patient will be NPO, we can have ice chips for Soothing through Antiemetics as needed Pain control Encourage ambulation as tolerated, multiple times per shift <Haroldo Langston PA-C - Last Filed: 03/07/25 08:44> Time Spent With Patient Time: Total time managing care of this patient today ____ minutes. <Haroldo Langston PA-C - Last Filed: 03/07/25 08:44> Quality Stroke Does the patient have a stroke diagnosis?: No <Haroldo Langston PA-C - Last Filed: 03/07/25 08:44> VTE Prior VTE?: No <KHRIS Motley Last Filed: 03/07/25 08:44> VTE Risk Level:: Medical - moderate - high <Haroldo Langston PA-C - Last Filed: 03/07/25 08:44> VTE Device Contraindication: Treatment Not Indicated <Haroldo Langston PA-C - Last Filed: 03/07/25 08:44> VTE Drug Contraindication: N/A - Med Ordered <Haroldo Langston PA-C - Last Filed: 03/07/25 08:44>
[2025-03-07] MEDS: 0.9 % Sodium Chloride Flush 3 ML SYRINGE IVFLUSH ×3 (07:49→22:56)
[2025-03-07 10:43] VITALS: BP 115/58; PULSE 69; RESP 12; TEMP 36.8; O2SAT 94
--- NOTE | 2025-03-07 11:31 | P.PNIM_ITS ---
Subjective Subjective Date of Service: 03/07/25 Interval History: Continues to complain of bloating and gas pressure Review of Systems Denies chest pain Denies shortness of breath Admits to mild nausea without diarrhea or vomiting Denies fever chills Physical Exam 2 Vital Signs: Vital Signs: Last Vital Signs Temp 98.3 F 03/07/25 10:43 Pulse 69 03/07/25 10:43 Resp 12 03/07/25 10:43 BP 115/58 L 03/07/25 10:43 Pulse Ox 94 03/07/25 10:43 O2 Del Method Room Air 03/07/25 10:43 O2 Flow Rate 2 03/05/25 16:00 BMI result Body Mass Index 19.1 Const: Other: Awake alert uncomfortable appearing Resp: Other: Clear to auscultation bilaterally no rales rhonchi or wheezes Cardio: Other: No S4; positive S1-S2; no S3 murmurs rubs or gallops GI: Other: Distended with quiet bowel sounds Extrem: Other: No edema bilaterally Objective Data Active Medications Acetaminophen (Acetaminophen 325 Mg Tablet) 650 mg PO Q6H PRN PRN Reason: Pain, Mild 1-3,fever,headache Last Admin: 03/02/25 20:47 Dose: 650 mg Documented By: MELANY Acetazolamide (Acetazolamide 250 Mg Tablet) 125 mg PO MoWeFr [facility] On Hold: 03/05/25 16:12 Resume: 03/08/25 09:00 Last Admin: 03/03/25 08:30 Dose: 125 mg Documented By: SUSAN Albuterol/Ipratropium (Albuterol/Iprat 2.5/0.5mg 3 Ml Ampul.Neb) 3 ml INHALE Q4H PRN PRN Reason: Shortness of Breath/Wheezing Amoxicillin/Clavulanate Potassium (Amoxicillin/Potassium Clav 875 Mg Tablet) 875 mg PO Q12H [facility] Last Admin: 03/07/25 10:44 Dose: Not Given Documented By: JUNIOR Non-Admin Reason: NPO Atorvastatin Calcium (Atorvastatin Calcium 20 Mg Tablet) 20 mg PO DAILY [facility] Last Admin: 03/07/25 10:43 Dose: Not Given Documented By: JUNIOR Non-Admin Reason: NPO Calcium Carbonate/Cholecalciferol (Calcium + Vitamin D 250 Mg Tablet) 500 mg PO BIDWM [facility] Last Admin: 03/07/25 10:43 Dose: Not Given Documented By: JUNIOR Non-Admin Reason: NPO Doxazosin Mesylate (Doxazosin Mesylate 2 Mg Tablet) 8 mg PO DAILY [facility] Last Admin: 03/07/25 10:43 Dose: Not Given Documented By: JUNIOR Non-Admin Reason: NPO Empagliflozin (Empagliflozin 10 Mg Tablet) 10 mg PO DAILY [facility] Last Admin: 03/07/25 10:43 Dose: Not Given Documented By: JUNIOR Non-Admin Reason: NPO Enoxaparin Sodium (Enoxaparin Sodium 40 Mg/0.4 Ml Syringe) 40 mg SUBCUT Q24H [facility] Last Admin: 03/06/25 16:21 Dose: 40 mg Documented By: JUNIOR Sodium Chloride (Ns) 1,000 mls @ 100 mls/hr IVCONT .Q10H [facility] On Hold: 03/05/25 17:53 Last Admin: 03/05/25 16:58 Dose: Not Given Documented By: KASSANDRA Non-Admin Reason: Duplicate Order Lidocaine (Lidocaine 4 % Patch Adh..Patch) 1 patch TRANSDERMA DAILY [facility]; Protocol Last Admin: 03/07/25 10:43 Dose: Not Given Documented By: JUNIOR Non-Admin Reason: Patient Refused Magnesium Hydroxide (Milk Of Magnesia 30 Ml Oral.Susp) 30 ml PO DAILY PRN PRN Reason: Constipation Melatonin (Melatonin 3 Mg Tablet) 6 mg PO BEDTIME PRN PRN Reason: Insomnia Metoclopramide HCl (Metoclopramide Hcl 10 Mg/2 Ml Vial) 5 mg IVPUSH Q6H PRN PRN Reason: Nausea and Vomiting Last Admin: 03/07/25 10:16 Dose: 5 mg Documented By: JUNIOR Morphine Sulfate (Morphine Sulfate Er 15 Mg Tablet.Er) 15 mg PO Q12H [facility] Last Admin: 03/07/25 10:44 Dose: Not Given Documented By: JUNIOR Non-Admin Reason: NPO Morphine Sulfate (Morphine Sulfate 4 Mg/Ml Cartridge) 3 mg IVPUSH Q4H PRN; Protocol PRN Reason: Pain, Severe (Pain Scale 7-10) Last Admin: 03/07/25 07:49 Dose: 3 mg Documented By: JUNIOR Pt Own Vyndamax 61 (Mg) 1 each PO DAILY [facility] Last Admin: 03/07/25 10:44 Dose: Not Given Documented By: JUNIOR Non-Admin Reason: NPO Pt Own (Tolvaptan 30 (Mg Tablet)) 1 each PO DAILY [facility] Last Admin: 03/07/25 10:43 Dose: Not Given Documented By: JUNIOR Non-Admin Reason: NPO Ondansetron HCl (Ondansetron Hcl 4 Mg/2 Ml Vial) 4 mg IVPUSH Q8H PRN PRN Reason: Nausea and Vomiting Last Admin: 03/07/25 04:20 Dose: 4 mg Documented By: DAVID Oxycodone HCl (Oxycodone Hcl Immed Release 5 Mg Tablet) 10 mg PO Q6H PRN PRN Reason: Pain, Moderate(Pain Scale 4-6) Last Admin: 03/04/25 13:06 Dose: 10 mg Documented By: ROBB Pregabalin (Pregabalin 150 Mg Capsule) 150 mg PO BID [facility] Last Admin: 03/07/25 10:44 Dose: Not Given Documented By: JUNIOR Non-Admin Reason: NPO Senna/Docusate Sodium (Sennosides/Docusate Sodium Tablet) 2 tab PO DAILY [facility] Last Admin: 03/07/25 10:44 Dose: Not Given Documented By: JUNIOR Non-Admin Reason: NPO Sodium Chloride (0.9 % Sodium Chloride Flush 3 Ml Syringe) 3 ml IVFLUSH QSHIFT [facility] Last Admin: 03/07/25 07:49 Dose: 3 ml Documented By: JUNIOR Spironolactone (Spironolactone 25 Mg Tablet) 50 mg PO BID@0900,1800 [facility]; Protocol Last Admin: 03/07/25 10:44 Dose: Not Given Documented By: JUNIOR Non-Admin Reason: NPO Torsemide (Torsemide 20 Mg Tablet) 80 mg PO BID [facility]; Protocol Last Admin: 03/07/25 10:44 Dose: Not Given Documented By: JUNIOR Non-Admin Reason: NPO Labs 03/07/25 05:15 03/07/25 05:15 Labs: Laboratory Results - last 24 hr 03/07/25 05:15 MCV 86.7 MCH 29.8 MCHC 34.4 RDW 17.4 H Plt Count 212 MPV 9.1 L Absolute Nucleated RBC 0.000 Nucleated RBC % (auto) 0.0 Anion Gap 20 Estim Creat Clear Calc 41.3 Estimated GFR 48 Random Glucose 138 H Calcium 9.8 D Microbiology Microbiology Results: Microbiology 03/01/25 13:21 Blood Culture - Final Blood - Venous No growth after 5 days. 03/01/25 13:21 Blood Culture - Final Blood - Venous No growth after 5 days. 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, GERD, chronic back pain, sacral fracture send back from [facility] due to 2 falls; found to have hypoNa, UTI, and PNA along with multiple rib fractures was pending discharge to [facility] but then developed SBO from incarcerated hernia 1.SBO - POD 2 open repair of right inguinal hernia repair with small bowel resection and right orchiectomy - Surgery following, advance to [facility] today 2.HAYDER,hypoNa,( acute-chronic) -responded to volume -follow renals/divalents 3.Multiple rib fractures - lidocaine patch, MSSR + oxycodone, 4.LLL PNA - was on ceftriaxone and doxycycline; amoxicillin-clavulanate 03/03-03/05, changed to ampicillin-sulbactam 03/05-03/06 while NPO, change back to amoxicillin- clavulanate 03/06-03/10 5.Enterococcus faecalis UTI - amoxicillin-clavulanate as above 6.HFpEF - stable and well compensated at this time 7.CAD/AF - not on anticoagulation presumably due to fall risk Enoxaparin Full code In my clinical judgment, the patient requires continued inpatient hospitalization for the following reasons: postop care Quality Stroke Does the patient have a stroke diagnosis?: No VTE Prior VTE?: No VTE Risk Level:: Medical - moderate - high VTE Device Contraindication: Treatment Not Indicated VTE Drug Contraindication: N/A - Med Ordered
--- NOTE | 2025-03-07 15:02 | PM.EVENT ---
Event Note Date of Service: 03/08/25 Event Note: Seen on afternoon rounds He reports vomiting and nausea Abdomen remains distended Small amounts of flatus I attempted to insert NG tube through both the left and right nostril multiple times for almost an hour NG tube does not go into the esophagus at all Likely due to distortion of his anatomy from his previous laryngectomy Discussed it anesthesia option of doing this under EGD with sedation to guide tube into the esophagus They feel that he presents with high risk of aspiration with loss of gag reflex due to sedation Explained this with the patient We will keep him NPO overnight IV Fluid hydration Head of bed at 45 degrees at all times [place] Discussed with hospitalist service Time Spent With Patient Time: Total time managing care of this patient today ____ minutes.
[2025-03-07] MEDS: Lactated Ringers 1,000 ML 125 ML IVCONT ×2 (15:32→22:55)
[2025-03-07 15:45] VITALS: BP 91/55; PULSE 75; TEMP 36.4; O2SAT 93
[2025-03-07 19:36] VITALS: BP 115/53; PULSE 71; RESP 18; TEMP 36.6; O2SAT 91
[2025-03-07 22:52] VITALS: RESP 15
[2025-03-08] VITALS (13 sets, daily range): BP systolic 94–138; BP diastolic 52–73; PULSE 66–101; RESP 12–30; TEMP 36.4–36.9; O2SAT 90–100
[2025-03-08] MEDS: Lactated Ringers 1,000 ML 125 ML IVCONT ×2 (06:00→18:42)
[2025-03-08 06:18] LABS: Hematocrit 35.5 % (42.0-52.0); Hemoglobin 12.2 g/dl (14.0-18.0); Imm Gran Abs Auto 0.24 X10*3/uL (0.00-0.03); Imm Gran Pct Auto 1.6 % (0.0-0.4); Lymphocytes Absolute Auto 0.7 X10*3/uL (1.2-4.9); MANUAL DIFF FLAG SCAN; Mean Corpuscular HGB Conc 34.4 g/dl (31.0-36.0); Mean Corpuscular Hemoglobin 29.8 pg (27.0-33.0); Mean Corpuscular Volume 86.8 fL (80.0-98.0); NRBC Abs Auto 0.000 X10*3/uL (0.0-0.012); NRBC Pct Auto 0.0 /100WBC (0.0-0.2); Platelet Count 227 X10*3/uL (160-400); Red Blood Count 4.09 X10*6/uL (4.60-5.80); SCAN SMEAR FLAG 1; White Blood Count 14.7 X10*3/uL (4.8-10.8)
[2025-03-08 06:43] LABS: Alanine Aminotransferase 12 U/L (0-40); Albumin Level 4.2 g/dL (3.5-5.0); Alkaline Phosphatase 154 U/L (39-117); Anion Gap 23 (12-20); Aspartate Amino Transferase 30 U/L (5-37); Blood Urea Nitrogen 55 mg/dL (9-16); Calcium 10.1 mg/dL (8.4-10.2); Carbon Dioxide 28 mmol/L (22-29); Chloride 82 mmol/L (96-108); Creatinine Clr Calc Pharmacy 22.2; Estimated Glomerular Filt Rate 23; Potassium 3.9 mmol/L (3.3-5.1); Sodium 129 mmol/L (135-145); Total Protein 7.2 g/dL (6.5-8.0)
--- NOTE | 2025-03-08 08:35 | P.PNNP_ITS ---
Subjective Subjective Date of Service: 03/08/25 Interval history: following for hyponatremia- acute on chronic sodium 129 today, which is baseline for pt creatinine increased to 2.66 7/, up from 1.43 no nephrotoxins, BP hypotensive yesterday 03/07 to 91/55, receiving LR at 125ml/hr Physical Exam 2 Vital Signs: Vital Signs: Last Vital Signs Temp 97.5 F 03/08/25 07:32 Pulse 95 03/08/25 07:32 Resp 12 03/08/25 07:32 BP 123/58 L 03/08/25 07:32 Pulse Ox 96 03/08/25 07:32 O2 Del Method Room Air 03/08/25 07:32 O2 Flow Rate 2 03/05/25 16:00 BMI result Body Mass Index 19.1 Const: General: no acute distress, alert and awake Resp: Effort & Inspection: normal respiratory effort and able to speak in complete sentences Auscultation: clear to auscultation bilaterally Cardio: Jugular venous distension: no JVD Rate: regular rate Rhythm: r egular rhythm Heart sounds: S1 normal heart sound present and S2 normal heart sound present GI: Palpation (GI): Soft to palpation and Tenderness to palpation present (GI) : General: Yes no CVA tenderness Back/Spine/Pelvis: Back: no CVA tenderness Skin: Rashes: no rashes Extrem: General: No edema Objective Data Labs 03/08/25 05:34 03/08/25 05:34 Labs: Laboratory Results - last 24 hr 03/08/25 05:34 WBC 14.7 H RBC 4.09 L Hgb 12.2 L Hct 35.5 L MCV 86.8 MCH 29.8 MCHC 34.4 RDW 17.4 H Plt Count 227 MPV 8.9 L Immature Gran % (Auto) 1.6 H Neut % (Auto) 79.8 H Lymph % (Auto) 5.0 L [place] % (Auto) 13.1 H Eos % (Auto) 0.3 Baso % (Auto) 0.2 Lymph # (Auto) 0.7 L [place] # (Auto) 1.9 H Eos # (Auto) 0.1 Baso # (Auto) 0.0 Abs Immat Gran (auto) 0.24 H Absolute Neuts (auto) 11.7 H Absolute Nucleated RBC 0.000 Nucleated RBC % (auto) 0.0 Smear Tech's Comments VERIFIED Sodium 129 L Potassium 3.9 Chloride 82 L Carbon Dioxide 28 Anion Gap 23 H BUN 55 H Creatinine 2.66 H Estim Creat Clear Calc 22.2 Estimated GFR 23 Fasting Glucose 122 H Calcium 10.1 Total Bilirubin 1.5 H AST 30 ALT 12 Alkaline Phosphatase 154 H Total Protein 7.2 Albumin 4.2 Microbiology Microbiology Results: Microbiology 03/01/25 13:21 Blood - Venous Blood Culture - Final No growth after 5 days. 03/01/25 13:21 Blood - Venous Blood Culture - Final No growth after 5 days. 03/01/25 Unknown Urine clean catch - Clean Catch Midstream Urine Culture - Final Enterococcus faecalis Procedures Date of Service Date of Service: 03/08/25 Assessment & Plan Assessment and plan (1) Hyponatremia: Status: Acute (2) HAYDER (acute kidney injury): Status: Acute Plan Hyponatremia- stable at baseline HAYDER- new, likely hemodynamic HAYDER from hypotension and hypovolemia recommend continuing IVF as patient appears hypovolemic this morning and sodium remains stable avoid nephrotoxins, avoid hypotension recommend daily electrolyte and renal function studies continue supportive care Discussed with Dr Osborn. Time Spent With Patient Time: Total time managing care of this patient today ____ minutes. Progress Note: Quality Stroke Does the patient have a stroke diagnosis?: No
--- NOTE | 2025-03-08 08:44 | P.PNGS_ITS ---
Subjective Subjective Date of Service: 03/08/25 Interval history: Had a few vomiting episodes overnight Denies severe abdominal pain He says he has passed small amounts of flatus and stool Physical Exam 2 Vital Signs: Vital Signs: Last Vital Signs Temp 97.5 F 03/08/25 07:32 Pulse 95 03/08/25 07:32 Resp 12 03/08/25 07:32 BP 123/58 L 03/08/25 07:32 Pulse Ox 96 03/08/25 07:32 O2 Del Method Room Air 03/08/25 07:32 O2 Flow Rate 2 03/05/25 16:00 BMI result Body Mass Index 19.1 Const: Other: Anxious Resp: Effort & Inspection: normal respiratory effort Cardio: Rate: regular rate GI: Other: Distended but soft, right inguinal hernia repair site intact, not infected, no obvious recurrence Objective Data Active Medications Acetaminophen (Acetaminophen 325 Mg Tablet) 650 mg PO Q6H PRN PRN Reason: Pain, Mild 1-3,fever,headache Last Admin: 03/02/25 20:47 Dose: 650 mg Documented By: MELANY Acetazolamide (Acetazolamide 250 Mg Tablet) 125 mg PO MoWeFr [facility] On Hold: 03/05/25 16:12 Resume: 03/08/25 09:00 Last Admin: 03/08/25 08:13 Dose: Not Given Documented By: SALTY Non-Admin Reason: NPO Albuterol/Ipratropium (Albuterol/Iprat 2.5/0.5mg 3 Ml Ampul.Neb) 3 ml INHALE Q4H PRN PRN Reason: Shortness of Breath/Wheezing Amoxicillin/Clavulanate Potassium (Amoxicillin/Potassium Clav 875 Mg Tablet) 875 mg PO Q12H [facility] Last Admin: 03/07/25 21:10 Dose: Not Given Documented By: АЛЕКСАНДР Non-Admin Reason: Nausea Atorvastatin Calcium (Atorvastatin Calcium 20 Mg Tablet) 20 mg PO DAILY [facility] Last Admin: 03/08/25 08:13 Dose: Not Given Documented By: SALTY Non-Admin Reason: NPO Calcium Carbonate/Cholecalciferol (Calcium + Vitamin D 250 Mg Tablet) 500 mg PO BIDWM [facility] Last Admin: 03/08/25 08:12 Dose: Not Given Documented By: SALTY Non-Admin Reason: NPO Doxazosin Mesylate (Doxazosin Mesylate 2 Mg Tablet) 8 mg PO DAILY [facility] Last Admin: 03/08/25 08:13 Dose: Not Given Documented By: SALTY Non-Admin Reason: NPO Empagliflozin (Empagliflozin 10 Mg Tablet) 10 mg PO DAILY [facility] Last Admin: 03/08/25 08:13 Dose: Not Given Documented By: SALTY Non-Admin Reason: NPO Enoxaparin Sodium (Enoxaparin Sodium 40 Mg/0.4 Ml Syringe) 40 mg SUBCUT Q24H [facility] Last Admin: 03/07/25 15:32 Dose: 40 mg Documented By: JUNIOR Lactated Ringer's (Lr) 1,000 mls @ 125 mls/hr IVCONT .Q8H [facility] Last Admin: 03/08/25 06:00 Dose: 125 mls/hr Documented By: АЛЕКСАНДР Lidocaine (Lidocaine 4 % Patch Adh..Patch) 1 patch TRANSDERMA DAILY [facility]; Protocol Last Admin: 03/07/25 10:43 Dose: Not Given Documented By: JUNIOR Non-Admin Reason: Patient Refused Melatonin (Melatonin 3 Mg Tablet) 6 mg PO BEDTIME PRN PRN Reason: Insomnia Metoclopramide HCl (Metoclopramide Hcl 10 Mg/2 Ml Vial) 5 mg IVPUSH Q6H PRN PRN Reason: Nausea and Vomiting Last Admin: 03/07/25 20:55 Dose: 5 mg Documented By: АЛЕКСАНДР Morphine Sulfate (Morphine Sulfate Er 15 Mg Tablet.Er) 15 mg PO Q12H [facility] Last Admin: 03/08/25 08:15 Dose: Not Given Documented By: SALTY Non-Admin Reason: NPO Morphine Sulfate (Morphine Sulfate 4 Mg/Ml Cartridge) 3 mg IVPUSH Q4H PRN; Protocol PRN Reason: Pain, Severe (Pain Scale 7-10) Last Admin: 03/08/25 05:59 Dose: 3 mg Documented By: АЛЕКСАНДР Pt Own Vyndamax 61 (Mg) 1 each PO DAILY [facility] Last Admin: 03/08/25 08:13 Dose: Not Given Documented By: SALTY Non-Admin Reason: NPO Pt Own (Tolvaptan 30 (Mg Tablet)) 1 each PO DAILY [facility] Last Admin: 03/08/25 08:13 Dose: Not Given Documented By: SALTY Non-Admin Reason: NPO Ondansetron HCl (Ondansetron Hcl 4 Mg/2 Ml Vial) 4 mg IVPUSH Q8H PRN PRN Reason: Nausea and Vomiting Last Admin: 03/07/25 04:20 Dose: 4 mg Documented By: KEN-BRISEIDA Ondansetron HCl (Ondansetron Hcl 4 Mg/2 Ml Vial) 4 mg IVPUSH Q6H PRN PRN Reason: Nausea and Vomiting Last Admin: 03/08/25 06:00 Dose: 4 mg Documented By: АЛЕКСАНДР Oxycodone HCl (Oxycodone Hcl Immed Release 5 Mg Tablet) 10 mg PO Q6H PRN PRN Reason: Pain, Moderate(Pain Scale 4-6) Last Admin: 03/04/25 13:06 Dose: 10 mg Documented By: ROBB Pregabalin (Pregabalin 150 Mg Capsule) 150 mg PO BID [facility] Last Admin: 03/08/25 08:14 Dose: Not Given Documented By: SALTY Non-Admin Reason: NPO Senna/Docusate Sodium (Sennosides/Docusate Sodium Tablet) 2 tab PO DAILY [facility] Last Admin: 03/08/25 08:14 Dose: Not Given Documented By: SALTY Non-Admin Reason: NPO Sodium Chloride (0.9 % Sodium Chloride Flush 3 Ml Syringe) 3 ml IVFLUSH QSHIFT [facility] Last Admin: 03/08/25 08:08 Dose: Not Given Documented By: SALTY Non-Admin Reason: IV Running Spironolactone (Spironolactone 25 Mg Tablet) 50 mg PO BID@0900,1800 [facility]; Protocol Last Admin: 03/08/25 08:14 Dose: Not Given Documented By: SALTY Non-Admin Reason: NPO Torsemide (Torsemide 20 Mg Tablet) 80 mg PO BID [facility]; Protocol Last Admin: 03/08/25 08:14 Dose: Not Given Documented By: SALTY Non-Admin Reason: NPO Labs 03/08/25 05:34 03/08/25 05:34 Labs: Laboratory Results - last 24 hr 03/08/25 05:34 MCV 86.8 MCH 29.8 MCHC 34.4 RDW 17.4 H Plt Count 227 MPV 8.9 L Immature Gran % (Auto) 1.6 H Neut % (Auto) 79.8 H Lymph % (Auto) 5.0 L [place] % (Auto) 13.1 H Eos % (Auto) 0.3 Baso % (Auto) 0.2 Lymph # (Auto) 0.7 L [place] # (Auto) 1.9 H Eos # (Auto) 0.1 Baso # (Auto) 0.0 Abs Immat Gran (auto) 0.24 H Absolute Neuts (auto) 11.7 H Absolute Nucleated RBC 0.000 Nucleated RBC % (auto) 0.0 Smear Tech's Comments VERIFIED Anion Gap 23 H Estim Creat Clear Calc 22.2 Estimated GFR 23 Fasting Glucose 122 H Calcium 10.1 Total Bilirubin 1.5 H AST 30 ALT 12 Alkaline Phosphatase 154 H Total Protein 7.2 Albumin 4.2 Procedures Date of Service Date of Service: 03/08/25 Progress Note: A&P Assessment and plan (1) S/P small bowel resection: Status: Acute Assessment and Plan: Appears to have delayed under GI function, with vomiting NG tube limited multiple times yesterday, unable to advance this into the esophagus view of his distorted anatomy Keep NPO He says he wants to walk so I have encouraged him He may have 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 Quality Stroke Does the patient have a stroke diagnosis?: No VTE Prior VTE?: No VTE Risk Level:: Medical - moderate - high VTE Device Contraindication: Treatment Not Indicated VTE Drug Contraindication: N/A - Med Ordered
[2025-03-08] MEDS: Lidocaine 4 % Patch ADH..PATCH 1 PATCH TRANSDERMA (09:05)
--- NOTE | 2025-03-08 10:34 | PC.NURSE ---
MD Montgomery at bedside this morning, per MD pt to remain NPO, small amounts of ice only, just to moisten mouth. Pt ambulated with CNAs this morning, SBA w/ walker, walked approx 50 ft.
--- NOTE | 2025-03-08 13:03 | MHC.CLN ---
F/U CURRENTY NPO DUE TO NAUSEA/VOMITING. UNABLE TO PLACE NGT LIKELY DUE TO ANATOMY. / UPPER ENDOSCOPY AND QUESTION PLACING G-TUBE. FOLLOW FOR DIET ADVANCEMENT AND PO INTAKE.
--- NOTE | 2025-03-08 13:26 | PC.NURSE ---
Addendum entered by May Santacruz RN 03/08/25 13:53: 13:54 HCP James updated per pts request by Atiya MERCADO. Original Note: 12:52 MD Yi made aware pt nauseous and anxious, RR 30-40, o2 93-95% on room air, BP 99/55. Pt vomiting total of 275ml dark green bilious emesis. MD Yi at the bedside, BP recheck 116/54. Per MD coy to give 3mg PRN morphine and PRN zofran at this time. MD Montgomery at bedside, per Ulises pt to go to OR to attempt NGT placement under anesthesia. Pt aware and agreeable to plan.
--- NOTE | 2025-03-08 13:26 | PM.EVENT ---
Event Note Date of Service: 03/08/25 Event Note: Continues to have vomiting and nausea Abdomen remains distended He is getting extremely anxious I have discussed case with the anesthesiologist - we will proceed with NG tube insertion guided by endoscopy, under anesthesia The patient has a previous laryngectomy so the distal trachea we will not be continuity with the pharynx I explained the planned procedure to the patient I reviewed the risks including but not limited to bleeding, infections, inherent risks of anesthesia He has given consent Time Spent With Patient Time: Total time managing care of this patient today ____ minutes.
--- NOTE | 2025-03-08 14:51 | PC.NURSE ---
voided 200ml in urinal
--- NOTE | 2025-03-08 14:59 | MHC.CM.PN ---
EMR reviewed and per MD rounds, pt is not medically cleared for discharge due to management of SBO with NG tube placement today,
--- NOTE | 2025-03-08 15:05 | HO.PM.IMPN ---
Subjective Subjective Date of Service: 03/08/25 Interval History: Patient continues to be nauseous and distended despite several ambulatory episodes. Respiratory rate elevated 30s to 40s earlier which responded to morphine. Review of Systems Denies chest pain Admits shortness of breath Admits to nausea without diarrhea admits vomiting Denies fever chills Physical Exam Vital Signs: Vital Signs: Last Vital Signs Temp 98.5 F 03/08/25 14:36 Pulse 69 03/08/25 14:36 Resp 20 03/08/25 14:36 BP 94/54 L 03/08/25 14:36 Pulse Ox 93 03/08/25 14:36 O2 Del Method Nasal Cannula 03/08/25 14:36 O2 Flow Rate 2 03/08/25 14:36 BMI result Body Mass Index 19.1 Const: Other: Awake alert uncomfortable appearing Resp: Other: Clear to auscultation bilaterally no rales rhonchi or wheezes Cardio: Other: No S4; positive S1-S2; no S3 murmurs rubs or gallops GI: Other: Distended with quiet bowel sounds Extrem: Other: No edema bilaterally Objective Data Active Medications Acetaminophen (Acetaminophen 325 Mg Tablet) 650 mg PO Q6H PRN PRN Reason: Pain, Mild 1-3,fever,headache Last Admin: 03/02/25 20:47 Dose: 650 mg Documented By: MELANY Acetazolamide (Acetazolamide 250 Mg Tablet) 125 mg PO MoWeFr [facility] Last Admin: 03/08/25 08:13 Dose: Not Given Documented By: SALTY Non-Admin Reason: NPO Amoxicillin/Clavulanate Potassium (Amoxicillin/Potassium Clav 875 Mg Tablet) 875 mg PO Q12H [facility] Last Admin: 03/08/25 09:00 Dose: Not Given Documented By: SALTY Non-Admin Reason: NPO Atorvastatin Calcium (Atorvastatin Calcium 20 Mg Tablet) 20 mg PO DAILY [facility] Last Admin: 03/08/25 08:13 Dose: Not Given Documented By: SALTY Non-Admin Reason: NPO Calcium Carbonate/Cholecalciferol (Calcium + Vitamin D 250 Mg Tablet) 500 mg PO BIDWM [facility] Last Admin: 03/08/25 08:12 Dose: Not Given Documented By: SALTY Non-Admin Reason: NPO Doxazosin Mesylate (Doxazosin Mesylate 2 Mg Tablet) 8 mg PO DAILY [facility] Last Admin: 03/08/25 08:13 Dose: Not Given Documented By: SALTY Non-Admin Reason: NPO Empagliflozin (Empagliflozin 10 Mg Tablet) 10 mg PO DAILY [facility] Last Admin: 03/08/25 08:13 Dose: Not Given Documented By: SALTY Non-Admin Reason: NPO Enoxaparin Sodium (Enoxaparin Sodium 40 Mg/0.4 Ml Syringe) 40 mg SUBCUT Q24H [facility] Last Admin: 03/07/25 15:32 Dose: 40 mg Documented By: JUNIOR Lactated Ringer's (Lr) 1,000 mls @ 125 mls/hr IVCONT .Q8H [facility] Last Infusion: 03/08/25 14:00 Dose: Infused Documented By: SALTY Lidocaine (Lidocaine 4 % Patch Adh..Patch) 1 patch TRANSDERMA DAILY [facility]; Protocol Last Admin: 03/08/25 09:05 Dose: 1 patch Documented By: SALTY Melatonin (Melatonin 3 Mg Tablet) 6 mg PO BEDTIME PRN PRN Reason: Insomnia Metoclopramide HCl (Metoclopramide Hcl 10 Mg/2 Ml Vial) 5 mg IVPUSH Q6H PRN PRN Reason: Nausea and Vomiting Last Admin: 03/07/25 20:55 Dose: 5 mg Documented By: АЛЕКСАНДР Morphine Sulfate (Morphine Sulfate Er 15 Mg Tablet.Er) 15 mg PO Q12H [facility] Last Admin: 03/08/25 08:15 Dose: Not Given Documented By: SALTY Non-Admin Reason: NPO Morphine Sulfate (Morphine Sulfate 4 Mg/Ml Cartridge) 3 mg IVPUSH Q4H PRN; Protocol PRN Reason: Pain, Severe (Pain Scale 7-10) Last Admin: 03/08/25 12:59 Dose: 3 mg Documented By: MARIE Pt Own Vyndamax 61 (Mg) 1 each PO DAILY [facility] Last Admin: 03/08/25 08:13 Dose: Not Given Documented By: SALTY Non-Admin Reason: NPO Pt Own (Tolvaptan 30 (Mg Tablet)) 1 each PO DAILY [facility] Last Admin: 03/08/25 08:13 Dose: Not Given Documented By: SALTY Non-Admin Reason: NPO Ondansetron HCl (Ondansetron Hcl 4 Mg/2 Ml Vial) 4 mg IVPUSH Q8H PRN PRN Reason: Nausea and Vomiting Last Admin: 03/07/25 04:20 Dose: 4 mg Documented By: DAVID Ondansetron HCl (Ondansetron Hcl 4 Mg/2 Ml Vial) 4 mg IVPUSH Q6H PRN PRN Reason: Nausea and Vomiting Last Admin: 03/08/25 12:47 Dose: 4 mg Documented By: SALTY Oxycodone HCl (Oxycodone Hcl Immed Release 5 Mg Tablet) 10 mg PO Q6H PRN PRN Reason: Pain, Moderate(Pain Scale 4-6) Last Admin: 03/04/25 13:06 Dose: 10 mg Documented By: ROBB Pregabalin (Pregabalin 150 Mg Capsule) 150 mg PO BID [facility] Last Admin: 03/08/25 08:14 Dose: Not Given Documented By: SALTY Non-Admin Reason: NPO Senna/Docusate Sodium (Sennosides/Docusate Sodium Tablet) 2 tab PO DAILY [facility] Last Admin: 03/08/25 08:14 Dose: Not Given Documented By: SALTY Non-Admin Reason: NPO Sodium Chloride (0.9 % Sodium Chloride Flush 3 Ml Syringe) 3 ml IVFLUSH QSAKFT [facility] Last Admin: 03/08/25 08:08 Dose: Not Given Documented By: SALTY Non-Admin Reason: IV Running Spironolactone (Spironolactone 25 Mg Tablet) 50 mg PO BID@0900,1800 [facility]; Protocol Last Admin: 03/08/25 08:14 Dose: Not Given Documented By: SALTY Non-Admin Reason: NPO Torsemide (Torsemide 20 Mg Tablet) 80 mg PO BID [facility]; Protocol Last Admin: 03/08/25 08:14 Dose: Not Given Documented By: SALTY Non-Admin Reason: NPO Labs 03/08/25 05:34 03/08/25 05:34 Labs: Laboratory Results - last 24 hr 03/08/25 05:34 MCV 86.8 MCH 29.8 MCHC 34.4 RDW 17.4 H Plt Count 227 MPV 8.9 L Immature Gran % (Auto) 1.6 H Neut % (Auto) 79.8 H Lymph % (Auto) 5.0 L [place] % (Auto) 13.1 H Eos % (Auto) 0.3 Baso % (Auto) 0.2 Lymph # (Auto) 0.7 L [place] # (Auto) 1.9 H Eos # (Auto) 0.1 Baso # (Auto) 0.0 Abs Immat Gran (auto) 0.24 H Absolute Neuts (auto) 11.7 H Absolute Nucleated RBC 0.000 Nucleated RBC % (auto) 0.0 Smear Tech's Comments VERIFIED Anion Gap 23 H Estim Creat Clear Calc 22.2 Estimated GFR 23 Fasting Glucose 122 H Calcium 10.1 Total Bilirubin 1.5 H AST 30 ALT 12 Alkaline Phosphatase 154 H Total Protein 7.2 Albumin 4.2 Assessment and Plan (1) S/P small bowel resection: Status: Acute (2) Hyponatremia: Status: Acute Plan 75yo M with chronic hypoNa, CKD2, BPH, HFpEF, CAD, AF, 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 Discussed with Dr. Montgomery; patient taken to OR for direct visualization for placement of NG tube - Surgery following... Likely NG decompression overnight 2.HAYDER,hypoNa,( acute-chronic) -responded to volume.. We will continue volume repletion. Sodium at baseline -appreciate renal input -follow renals/divalents 3.Multiple rib fractures - lidocaine patch, MSSR + oxycodone, 4.LLL PNA - was on ceftriaxone and doxycycline; amoxicillin-clavulanate 03/03-03/05, changed to ampicillin-sulbactam 03/05-03/06 while NPO, change back to amoxicillin-clavulanate 03/06-03/08. Further plans based on placement of NG tube 5.Enterococcus faecalis UTI - amoxicillin-clavulanate as above 6.HFpEF - stable and well compensated at this time 7.CAD/AF - not on anticoagulation presumably due to fall risk Enoxaparin Full code In my clinical judgment, the patient requires continued inpatient hospitalization for the following reasons: postop care Quality Stroke Does the patient have a stroke diagnosis?: No VTE Prior VTE?: No VTE Risk Level:: Medical - moderate - high VTE Device Contraindication: Treatment Not Indicated VTE Drug Contraindication: N/A - Med Ordered
--- NOTE | 2025-03-08 15:36 | P.CONAN_ITS ---
[facility] Active Problems Active Problems: All Active Problems (Updated 03/08/25 @ 09:45 by Desi Padilla, DNP, MEDIA THEORIST AND AUTHOR OF-) HAYDER (acute kidney injury) (Acute) S/P orchiectomy (Acute) S/P small bowel resection (Acute) S/P inguinal hernia repair (Acute) Presence of CardioMEMS HF system (Acute) Presence of Watchman left atrial appendage closure device (Acute) Atherosclerotic cardiovascular disease (Acute) Amyloid heart disease (Acute) Preoperative cardiovascular examination (Acute) Incarcerated right inguinal hernia (Acute) Physical deconditioning (Acute) Pneumonia (Acute) Urinary tract infection (Acute) Hyponatremia (Acute) Recurrent inguinal hernia (Acute) Right inguinal hernia (Acute) History of laryngeal cancer (Acute) Chronic a-fib (Acute) BPH (benign prostatic hyperplasia) (Acute) Past Medical History Medical History Presence of Watchman left atrial appendage closure device Atherosclerotic cardiovascular disease Recurrent inguinal hernia Pacemaker Right inguinal hernia History of laryngeal cancer Chronic a-fib BPH (benign prostatic hyperplasia) Functional capacity: independent ambulation Family History Family History Father No problems noted. Mother History of hypertension Son No problems noted. Son No problems noted. Daughter No problems noted. Family history of problems with anesthesia: No Surgical History Surgical History History of left knee replacement History of Problems with Anesthesia: No Social History Social History Household Members: None Housing: House Alcohol intake: never Patient Tobacco Use Status: Former Tobacco user Advance Directives Date on File: 02/17/25 service: No Meds Allergies Allergy/AdvReac Type Severity Reaction Status Date / Time No Known Allergies (No Known Allergy Verified 03/01/25 11:14 Allergies*) Active Medications: Current Medications Acetaminophen (Acetaminophen 325 Mg Tablet) 650 mg PO Q6H PRN PRN Reason: Pain, Mild 1-3,fever,headache Last Admin: 03/02/25 20:47 Dose: 650 mg Acetazolamide (Acetazolamide 250 Mg Tablet) 125 mg PO MoWeFr [facility] Last Admin: 03/08/25 08:13 Dose: Not Given Amoxicillin/Clavulanate Potassium (Amoxicillin/Potassium Clav 875 Mg Tablet) 875 mg PO Q12H [facility] Last Admin: 03/08/25 09:00 Dose: Not Given Atorvastatin Calcium (Atorvastatin Calcium 20 Mg Tablet) 20 mg PO DAILY [facility] Last Admin: 03/08/25 08:13 Dose: Not Given Calcium Carbonate/Cholecalciferol (Calcium + Vitamin D 250 Mg Tablet) 500 mg PO BIDWM [facility] Last Admin: 03/08/25 08:12 Dose: Not Given Doxazosin Mesylate (Doxazosin Mesylate 2 Mg Tablet) 8 mg PO DAILY [facility] Last Admin: 03/08/25 08:13 Dose: Not Given Empagliflozin (Empagliflozin 10 Mg Tablet) 10 mg PO DAILY [facility] Last Admin: 03/08/25 08:13 Dose: Not Given Enoxaparin Sodium (Enoxaparin Sodium 40 Mg/0.4 Ml Syringe) 40 mg SUBCUT Q24H [facility] Last Admin: 03/07/25 15:32 Dose: 40 mg Lactated Ringer's (Lr) 1,000 mls @ 125 mls/hr IVCONT .Q8H [facility] Last Infusion: 03/08/25 14:00 Dose: Infused Lidocaine (Lidocaine 4 % Patch Adh..Patch) 1 patch TRANSDERMA DAILY [facility]; Protocol Last Admin: 03/08/25 09:05 Dose: 1 patch Melatonin (Melatonin 3 Mg Tablet) 6 mg PO BEDTIME PRN PRN Reason: Insomnia Metoclopramide HCl (Metoclopramide Hcl 10 Mg/2 Ml Vial) 5 mg IVPUSH Q6H PRN PRN Reason: Nausea and Vomiting Last Admin: 03/07/25 20:55 Dose: 5 mg Morphine Sulfate (Morphine Sulfate Er 15 Mg Tablet.Er) 15 mg PO Q12H [facility] Last Admin: 03/08/25 08:15 Dose: Not Given Morphine Sulfate (Morphine Sulfate 4 Mg/Ml Cartridge) 3 mg IVPUSH Q4H PRN; Protocol PRN Reason: Pain, Severe (Pain Scale 7-10) Last Admin: 03/08/25 12:59 Dose: 3 mg Pt Own Vyndamax 61 (Mg) 1 each PO DAILY [facility] Last Admin: 03/08/25 08:13 Dose: Not Given Pt Own (Tolvaptan 30 (Mg Tablet)) 1 each PO DAILY [facility] Last Admin: 03/08/25 08:13 Dose: Not Given Ondansetron HCl (Ondansetron Hcl 4 Mg/2 Ml Vial) 4 mg IVPUSH Q8H PRN PRN Reason: Nausea and Vomiting Last Admin: 03/07/25 04:20 Dose: 4 mg Ondansetron HCl (Ondansetron Hcl 4 Mg/2 Ml Vial) 4 mg IVPUSH Q6H PRN PRN Reason: Nausea and Vomiting Last Admin: 03/08/25 12:47 Dose: 4 mg Oxycodone HCl (Oxycodone Hcl Immed Release 5 Mg Tablet) 10 mg PO Q6H PRN PRN Reason: Pain, Moderate(Pain Scale 4-6) Last Admin: 03/04/25 13:06 Dose: 10 mg Pregabalin (Pregabalin 150 Mg Capsule) 150 mg PO BID [facility] Last Admin: 03/08/25 08:14 Dose: Not Given Senna/Docusate Sodium (Sennosides/Docusate Sodium Tablet) 2 tab PO DAILY [facility] Last Admin: 03/08/25 08:14 Dose: Not Given Sodium Chloride (0.9 % Sodium Chloride Flush 3 Ml Syringe) 3 ml IVFLUSH QSHIFT [facility] Last Admin: 03/08/25 08:08 Dose: Not Given Spironolactone (Spironolactone 25 Mg Tablet) 50 mg PO BID@0900,1800 [facility]; Protocol Last Admin: 03/08/25 08:14 Dose: Not Given Torsemide (Torsemide 20 Mg Tablet) 80 mg PO BID [facility]; Protocol Last Admin: 03/08/25 08:14 Dose: Not Given Home Medications ?Medication ?Instructions ?Recorded ?Confirmed ?Last Taken ?Type omeprazole 20 mg capsule,delayed 20 mg PO DAILY@0630 1 09/17/19 03/01/25 Unknown History release simvastatin 40 mg tablet 40 mg PO BEDTIME 07/18/20 Unknown History tafamidis 61 mg capsule (Vyndamax) 61 mg PO DAILY 11/2803/01/25 Unknown History spironolactone 50 mg tablet 50 mg PO BID 07/01/2402/06 Unknown History empagliflozin 10 mg tablet 10 mg PO DAILY 03/01/25 Unknown History (Jardiance) morphine 15 mg tablet,extended 15 mg PO BID 03/01/25 0 03/01/25 Unknown History release tolvaptan 30 mg tablet 30 mg PO DAILY 03/01/2502/06 Unknown History Exam Exam Date and Time: 03/08/2025 Height,Weight and Vital Signs: Height 6 ft 2 in Weight 67.5 kg Last Vital Signs Temp 98.5 F 03/08/25 14:36 Pulse 69 03/08/25 14:36 Resp 20 03/08/25 14:36 BP 94/54 L 03/08/25 14:36 Pulse Ox 93 03/08/25 14:36 O2 Del Method Nasal Cannula 03/08/25 14:36 O2 Flow Rate 2 03/08/25 14:36 Pertinent Lab Results Pertinent Lab Results: Laboratory Tests 03/01/25 03/01/25 03/01/25 11:29 13:21 14:42 WBC 12.2 H RBC 3.91 L Hgb 11.6 L Hct 33.8 L MCV 86.4 MCH 29.7 MCHC 34.3 RDW 20.2 H Plt Count 179 D MPV 10.1 Immature Gran % (Auto) 2.6 H Neut % (Auto) 83.6 H Lymph % (Auto) 4.9 L [place] % (Auto) 8.5 Eos % (Auto) 0.2 Baso % (Auto) 0.2 Lymph # (Auto) 0.6 L [place] # (Auto) 1.0 Eos # (Auto) 0.0 Baso # (Auto) 0.0 Abs Immat Gran (auto) 0.32 H Absolute Neuts (auto) 10.2 H Absolute Nucleated RBC 0.000 Nucleated RBC % (auto) 0.0 Smear Tech's Comments PT INR Sodium 125 L Potassium 4.7 D Chloride 94 L Carbon Dioxide 20 L Anion Gap 16 BUN 37 H Creatinine 1.18 Estim Creat Clear Calc 50.0 Estimated GFR 60 Random Glucose 116 H Fasting Glucose Osmolality 267 L Lactic Acid 1.5 Calcium 9.4 Total Bilirubin 1.4 H AST 48 H ALT 28 Alkaline Phosphatase 165 H Total Creatine Kinase 168 Troponin I High Sens 29.7 B-Natriuretic Peptide Total Protein 7.1 Albumin 4.3 Urine Color Yellow Urine Appearance Cloudy Urine pH 7.5 Ur Specific [place] 1.015 Urine Protein Negative Urine Glucose (UA) 500 H Urine Ketones Negative Urine Blood Trace H Urine Nitrite Negative Ur Leukocyte Esterase Large (3+) H Urine RBC 0-2 Urine WBC >50 H Ur Squamous Epith Cells 0-2 Urine Bacteria Trace Hyaline Casts 0-2 Urine Osmolality 273 L Ur Random Sodium 03/02/25 03/02/25 03/03/25 05:28 08:54 05:45 WBC 8.6 RBC 3.80 L Hgb 11.0 L Hct 33.1 L MCV 87.1 MCH 28.9 MCHC 33.2 RDW 18.7 H Plt Count 157 L MPV 9.7 Immature Gran % (Auto) 2.6 H Neut % (Auto) 71.6 Lymph % (Auto) 9.3 L [place] % (Auto) 14.2 H Eos % (Auto) 1.9 Baso % (Auto) 0.4 Lymph # (Auto) 0.8 L [place] # (Auto) 1.2 Eos # (Auto) 0.2 Baso # (Auto) 0.0 Abs Immat Gran (auto) 0.22 H Absolute Neuts (auto) 6.1 Absolute Nucleated RBC 0.000 Nucleated RBC % (auto) 0.0 Smear Tech's Comments PT INR Sodium 128 L 130 L Potassium 3.6 D 3.4 Chloride 93 L 97 Carbon Dioxide 24 23 Anion Gap 15 13 BUN 29 H 20 H Creatinine 0.96 0.83 Estim Creat Clear Calc 61.5 71.1 Estimated GFR > 60 > 60 Random Glucose 102 109 Fasting Glucose Osmolality Lactic Acid Calcium 9.6 9.1 Total Bilirubin AST ALT Alkaline Phosphatase Total Creatine Kinase Troponin I High Sens B-Natriuretic Peptide 169 H Total Protein Albumin Urine Color Urine Appearance Urine pH Ur Specific [place] Urine Protein Urine Glucose (UA) Urine Ketones Urine Blood Urine Nitrite Ur Leukocyte Esterase Urine RBC Urine WBC Ur Squamous Epith Cells Urine Bacteria Hyaline Casts Urine Osmolality Ur Random Sodium 03/03/25 03/04/25 03/05/25 10:49 17:45 08:14 WBC 15.0 H 13.4 H RBC 4.52 L 4.51 L Hgb 13.4 L D 13.6 L Hct 38.6 L 40.6 L MCV 85.4 90.0 MCH 29.6 30.2 MCHC 34.7 33.5 RDW 18.5 H 18.6 H Plt Count 207 D 167 MPV 9.1 L 9.2 L Immature Gran % (Auto) 1.5 H Neut % (Auto) 84.2 H Lymph % (Auto) 4.3 L [place] % (Auto) 8.8 Eos % (Auto) 0.7 Baso % (Auto) 0.5 Lymph # (Auto) 0.6 L [place] # (Auto) 1.2 Eos # (Auto) 0.1 Baso # (Auto) 0.1 Abs Immat Gran (auto) 0.20 H Absolute Neuts (auto) 11.2 H Absolute Nucleated RBC 0.000 0.000 Nucleated RBC % (auto) 0.0 0.0 Smear Tech's Comments PT 12.0 INR 1.0 Sodium 127 L 124 L Potassium 3.9 4.3 Chloride 89 L 88 L Carbon Dioxide 24 22 Anion Gap 18 18 BUN 28 H 37 H Creatinine 1.35 1.60 H Estim Creat Clear Calc 43.7 36.9 Estimated GFR 51 42 Random Glucose 141 H 127 H Fasting Glucose Osmolality Lactic Acid Calcium 10.0 D 9.7 Total Bilirubin AST ALT Alkaline Phosphatase Total Creatine Kinase Troponin I High Sens B-Natriuretic Peptide 57 Total Protein Albumin Urine Color Urine Appearance Urine pH Ur Specific [place] Urine Protein Urine Glucose (UA) Urine Ketones Urine Blood Urine Nitrite Ur Leukocyte Esterase Urine RBC Urine WBC Ur Squamous Epith Cells Urine Bacteria Hyaline Casts Urine Osmolality Ur Random Sodium 23.0 03/06/25 03/07/25 03/08/25 05:35 05:15 05:34 WBC 16.3 H 16.1 H 14.7 H RBC 3.74 L 3.99 L 4.09 L Hgb 11.2 L 11.9 L 12.2 L Hct 32.7 L 34.6 L 35.5 L MCV 87.4 86.7 86.8 MCH 29.9 29.8 29.8 MCHC 34.3 34.4 34.4 RDW 18.0 H 17.4 H 17.4 H Plt Count 202 212 227 MPV 9.4 9.1 L 8.9 L Immature Gran % (Auto) 1.6 H Neut % (Auto) 79.8 H Lymph % (Auto) 5.0 L [place] % (Auto) 13.1 H Eos % (Auto) 0.3 Baso % (Auto) 0.2 Lymph # (Auto) 0.7 L [place] # (Auto) 1.9 H Eos # (Auto) 0.1 Baso # (Auto) 0.0 Abs Immat Gran (auto) 0.24 H Absolute Neuts (auto) 11.7 H Absolute Nucleated RBC 0.000 0.000 0.000 Nucleated RBC % (auto) 0.0 0.0 0.0 Smear Tech's Comments VERIFIED PT INR Sodium 129 L 130 L 129 L Potassium 4.0 3.9 3.9 Chloride 96 87 L 82 L Carbon Dioxide 23 27 28 Anion Gap 14 20 23 H BUN 33 H 36 H 55 H Creatinine 1.10 1.43 H 2.66 H Estim Creat Clear Calc 53.6 41.3 22.2 Estimated GFR > 60 48 23 Random Glucose 117 H 138 H Fasting Glucose 122 H Osmolality Lactic Acid Calcium 8.8 D 9.8 D 10.1 Total Bilirubin 1.5 H AST 30 ALT 12 Alkaline Phosphatase 154 H Total Creatine Kinase Troponin I High Sens B-Natriuretic Peptide Total Protein 7.2 Albumin 4.2 Urine Color Urine Appearance Urine pH Ur Specific [place] Urine Protein Urine Glucose (UA) Urine Ketones Urine Blood Urine Nitrite Ur Leukocyte Esterase Urine RBC Urine WBC Ur Squamous Epith Cells Urine Bacteria Hyaline Casts Urine Osmolality Ur Random Sodium Narrative Narrative: patient has a trachetomy, patent. Airway Mallampati Class: II TM Dist: >3cm Neck ROM: Full Heart: nsr Lungs: cta Other: normally oriented Assessment and Plan Final Anesthetic Review Family History of Problems with Anesthesia: No History of Problems with Anesthesia: No NPO: Yes ASA Class: IV Final Preanesthetic Review: No Changes in Pt Med Stat, Meds/Allgs Chart Reviewed, Consent Obtained/Reviewed and Anes Risks/Benef Reviewed Patient Risk: Intermediate Procedure Risk: Intermediate Anesthetic Plan Anesthetic Plan: GA Disposition: Standard PACU
--- NOTE | 2025-03-08 17:24 | W.PM.OPN ---
Operative Note Operative Note Date of Service: 03/08/25 Narrative: Preop diagnosis: Postop ileus, able to advance the NG tube past the pharynx due to previous laryngectomy Postop diagnosis: The same Procedure: Insertion of NG tube into the stomach with use of endoscopy, under anesthesia Surgeon: Poncho Montgomery MD product development assistant: KATHLEEN Maldonado The patient is a 75-year-old male, who had undergone repair of incarcerated right inguinal hernia with small bowel resection days ago, now developing ileus with multiple episodes of vomiting. We have been unable to insert the scope despite multiple attempts at bedside in view of the ordered anatomy. We therefore scheduled him for the NG tube insertion under anesthesia with endoscopy he had understood the technique of the planned procedure. He is aware of the risks, benefits, and alternatives The patient is brought to the operating room. He was placed in a reclining position under general anesthesia via the tracheostomy. A bite block was in position. We inserted the scope through the bite block into the oropharynx. The esophageal slit was seen. We inserted the NG-tube [place] 16 through the nose into the oropharynx. We could visualize the tip of the NG tube we could not positioned it into the esophageal slit because of the distorted anatomy. We had to attend multiple times. We even attempted to drag the tip of the scope with the forceps into the esophageal slit but without success as the forceps kept slipping. At some point, after multiple attempts, we are able to positioned the tip of the tube into the esophagus. We advanced this but again, as this reached distal esophagus, it started to coil with advancement in the oropharynx. We attempted to straighten this coil and drag the tip of the scope further but we could not advance this with scope at all. Eventually, I had to try to straighten the coil in the pharynx directly with my finger and advanced the NG tube from the pharynx distally into the esophagus. This time, it appeared that we are able to straighten the coil in the pharynx and we advanced the scope all the way to the stomach. We confirmed location of the tip of the NG tube he had endoscopy as being in the stomach itself. We proceeded to withdraw the scope completely in the procedure was completed The patient tolerated the procedure well. There were no immediate complications The patient was taken off the ventilator was transferred into the recovery room with stable vital signs.
--- NOTE | 2025-03-08 18:15 | PM.EVENT ---
Event Note Date of Service: 03/09/25 Event Note: Seen postop He had undergone NG tube insertion under anesthesia with use of the endoscope in view of difficult anatomy due to previous laryngectomy Appears to be comfortable Abdomen distended but soft and benign He looks comfortable Stable vital signs NG tube working with bilious return Keep NG tube in place I have instructed him to not pull the NG tube out Time Spent With Patient Time: Total time managing care of this patient today ____ minutes.
[2025-03-09] MEDS: Lactated Ringers 1,000 ML 125 ML IVCONT ×3 (02:28→20:40)
[2025-03-09 04:00] VITALS: BP 115/55; PULSE 60; RESP 16; TEMP 36.2; O2SAT 97
[2025-03-09] MEDS: Lidocaine 4 % Patch ADH..PATCH 1 PATCH TRANSDERMA (07:31)
[2025-03-09 07:38] VITALS: BP 141/63; PULSE 91; RESP 18; TEMP 36.9; O2SAT 99
[2025-03-09 08:14] VITALS: O2SAT 93
--- NOTE | 2025-03-09 08:37 | HO.POSTANES ---
Post Anesthesia Evaluation Post Anesthesia Evaluation Date of Service: 03/09/25 Vital Signs: Vital Signs Temp Pulse Resp BP Pulse Ox O2 Del Method O2 Flow Rate 03/09/25 08:14 93 Room Air 03/09/25 07:38 98.4 F 91 18 141/63 H 99 Trach Collar 6 03/09/25 04:00 97.2 F 60 16 115/55 L 97 Trach Collar 6 Anesthesia: General Mental Status: Awake Pain Control: Satisfactory Nausea/Vomiting: None Hydration: Adequate Anesthesia-Related Issues: No Anes. Related Issues
[2025-03-09 08:46] LABS: Anion Gap 20 (12-20); Blood Urea Nitrogen 57 mg/dL (9-16); Calcium 10.0 mg/dL (8.4-10.2); Carbon Dioxide 31 mmol/L (22-29); Chloride 88 mmol/L (96-108); Creatinine Clr Calc Pharmacy 27.9; Estimated Glomerular Filt Rate 31; Potassium 3.9 mmol/L (3.3-5.1); Sodium 135 mmol/L (135-145)
--- NOTE | 2025-03-09 08:52 | P.PNGS_ITS ---
Subjective Subjective Date of Service: 03/09/25 <Haroldo Langston PA-C - Last Filed: 03/09/25 09:08> 03/09/25 <Poncho Montgomery MD - Last Filed: 03/09/25 15:37> Interval history: patient feels better this morning. NG output 800 overnight, 3000 total. feels like he has to pass a BM but has to strain. Denies nausea or vomiting. Wants to walk around. Patient states he is very hungry, hasnt eaten in 3 days. < Haroldo Langston PA-C - Last Filed: 03/09/25 09:08> Physical Exam 2 Vital Signs: Vital Signs: Last Vital Signs Temp 98.4 F 03/09/25 07:38 Pulse 91 03/09/25 07:38 Resp 18 03/09/25 07:38 BP 141/63 H 03/09/25 07:38 Pulse Ox 93 03/09/25 08:14 O2 Del Method Room Air 03/09/25 08:14 O2 Flow Rate 6 03/09/25 07:38 FiO2 28 03/08/25 19:16 BMI result Body Mass Index 19.1 <Haroldo Langston PA-C - Last Filed: 03/09/25 09:08> Const: General: comfortable and no acute distress <KHRIS Motley Last Filed: 03/09/25 09:08> Orientation/consciousness: patient oriented x3 <Haroldo Langston PA-C - Last Filed: 03/09/25 09:08> Resp: Effort & Inspection: normal respiratory effort and able to speak in complete sentences (using transducer) <Haroldo Langston PA-C - Last Filed: 03/09/25 09:08> GI: Other: incision site appears clean dry and intact, jay in palce <Haroldo Langston PA-C - Last Filed: 03/09/25 09:08> Inspection: No distended <KHRIS Motley Last Filed: 03/09/25 09:08> Palpation (GI): Soft to palpation, not firm, Tenderness to palpation present (GI) (mild throughout), no guarding and not rigid <KHRIS Motley Last Filed: 03/09/25 09:08> Neuro: General: patient oriented x3 <Haroldo Langston PA-C - Last Filed: 03/09/25 09:08> Objective Data Active Medications Acetaminophen (Acetaminophen 325 Mg Tablet) 650 mg PO Q6H PRN PRN Reason: Pain, Mild 1-3,fever,headache Last Admin: 03/02/25 20:47 Dose: 650 mg Documented By: MAYEILInez Acetazolamide (Acetazolamide 250 Mg Tablet) 125 mg PO MoWeFr [facility] Last Admin: 03/08/25 08:13 Dose: Not Given Documented By: SALTY Non-Admin Reason: NPO Amoxicillin/Clavulanate Potassium (Amoxicillin/Potassium Clav 875 Mg Tablet) 875 mg PO Q12H [facility] Last Admin: 03/08/25 20:35 Dose: Not Given Documented By: JOAO Non-Admin Reason: NPO Atorvastatin Calcium (Atorvastatin Calcium 20 Mg Tablet) 20 mg PO DAILY [facility] Last Admin: 03/09/25 07:38 Dose: Not Given Documented By: MARIE Non-Admin Reason: NPO Calcium Carbonate/Cholecalciferol (Calcium + Vitamin D 250 Mg Tablet) 500 mg PO BIDWM [facility] Last Admin: 03/09/25 07:38 Dose: Not Given Documented By: MARIE Non-Admin Reason: NPO Doxazosin Mesylate (Doxazosin Mesylate 2 Mg Tablet) 8 mg PO DAILY [facility] Last Admin: 03/09/25 07:38 Dose: Not Given Documented By: MARIE Non-Admin Reason: NPO Empagliflozin (Empagliflozin 10 Mg Tablet) 10 mg PO DAILY [facility] Last Admin: 03/09/25 07:38 Dose: Not Given Documented By: MARIE Non-Admin Reason: NPO Enoxaparin Sodium (Enoxaparin Sodium 40 Mg/0.4 Ml Syringe) 40 mg SUBCUT Q24H [facility] Last Admin: 03/08/25 16:33 Dose: Not Given Documented By: MARIE Non-Admin Reason: pt in OR Lactated Ringer's (Lr) 1,000 mls @ 125 mls/hr IVCONT .Q8H [facility] Last Admin: 03/09/25 02:28 Dose: 125 mls/hr Documented By: JOAO Lidocaine (Lidocaine 4 % Patch Adh..Patch) 1 patch TRANSDERMA DAILY [facility]; Protocol Last Admin: 03/09/25 07:31 Dose: 1 patch Documented By: MARIE Melatonin (Melatonin 3 Mg Tablet) 6 mg PO BEDTIME PRN PRN Reason: Insomnia Metoclopramide HCl (Metoclopramide Hcl 10 Mg/2 Ml Vial) 5 mg IVPUSH Q6H PRN PRN Reason: Nausea and Vomiting Last Admin: 03/07/25 20:55 Dose: 5 mg Documented By: KEN-TRIXIE Morphine Sulfate (Morphine Sulfate Er 15 Mg Tablet.Er) 15 mg PO Q12H [facility] Last Admin: 03/09/25 07:39 Dose: Not Given Documented By: MARIE Non-Admin Reason: NPO Morphine Sulfate (Morphine Sulfate 4 Mg/Ml Cartridge) 3 mg IVPUSH Q4H PRN; Protocol PRN Reason: Pain, Severe (Pain Scale 7-10) Last Admin: 03/09/25 04:19 Dose: 3 mg Documented By: JOAO Pt Own Vyndamax 61 (Mg) 1 each PO DAILY [facility] Last Admin: 03/09/25 07:38 Dose: Not Given Documented By: MARIE Non-Admin Reason: NPO Pt Own (Tolvaptan 30 (Mg Tablet)) 1 each PO DAILY [facility] Last Admin: 03/09/25 07:38 Dose: Not Given Documented By: MARIE Non-Admin Reason: NPO Ondansetron HCl (Ondansetron Hcl 4 Mg/2 Ml Vial) 4 mg IVPUSH Q6H PRN PRN Reason: Nausea and Vomiting Last Admin: 03/08/25 12:47 Dose: 4 mg Documented By: SALTY Oxycodone HCl (Oxycodone Hcl Immed Release 5 Mg Tablet) 10 mg PO Q6H PRN PRN Reason: Pain, Moderate(Pain Scale 4-6) Last Admin: 03/04/25 13:06 Dose: 10 mg Documented By: ROBB Pharmacy Consult (Consult Rx Parenteral Nutrition Ordering) 1 each MISCELLANE DAILY PRN PRN Reason: Consult order Pregabalin (Pregabalin 150 Mg Capsule) 150 mg PO BID [facility] Last Admin: 03/09/25 07:38 Dose: Not Given Documented By: MARIE Non-Admin Reason: NPO Senna/Docusate Sodium (Sennosides/Docusate Sodium Tablet) 2 tab PO DAILY [facility] Last Admin: 03/09/25 07:38 Dose: Not Given Documented By: MARIE Non-Admin Reason: NPO Sodium Chloride (0.9 % Sodium Chloride Flush 3 Ml Syringe) 3 ml IVFLUSH QSHIFT [facility] Last Admin: 03/09/25 07:36 Dose: Not Given Documented By: MARIE Non-Admin Reason: IV Running Spironolactone (Spironolactone 25 Mg Tablet) 50 mg PO BID@0900,1800 [facility]; Protocol Last Admin: 03/09/25 07:39 Dose: Not Given Documented By: MARIE Non-Admin Reason: NPO Torsemide (Torsemide 20 Mg Tablet) 80 mg PO BID [facility]; Protocol Last Admin: 03/09/25 07:39 Dose: Not Given Documented By: MARIE Non-Admin Reason: NPO <Haroldo Langston PA-C - Last Filed: 03/09/25 09:08> Labs CBC & Chem 7: 03/08/25 05:34 03/09/25 08:17 <Haroldo Langston PA-C - Last Filed: 03/09/25 09:08> Labs: Laboratory Results - last 24 hr 03/09/25 08:17 Anion Gap 20 Estim Creat Clear Calc 27.9 Estimated GFR 31 Random Glucose 109 Calcium 10.0 <Haroldo Langston PA-C - Last Filed: 03/09/25 09:08> Procedures Date of Service Date of Service: 03/09/25 <Haroldo Langston PA-C - Last Filed: 03/09/25 09:08> 03/09/25 <Poncho Montgomery MD - Last Filed: 03/09/25 15:37> Progress Note: A&P Assessment and plan (1) S/P small bowel resection: Status: Acute <Haroldo Langston PA-C - Last Filed: 03/09/25 09:08> Assessment and Plan: Patient had NG tube placed under anesthesia yesterday, output is 3000 since insertion, green billious output. Patient feels better this morning. Abdomen is soft and benign. Incision is clean dry and intact. The patient experiencing some difficulty passing stool. He is passing small amounts of flatus Has been NPO for extended period of time, will order for picc line insertion for TPN, nutrition consult ordered. Recommend ambulation as tolerated picc line insertion ordered for TPN, nutrition consult pending IV fluids pain control as needed NG tube will remain in place <Haroldo Langston PA-C - Last Filed: 03/09/25 09:08> (2) S/P inguinal hernia repair: Status: Acute <Haroldo Langston PA-C - Last Filed: 03/09/25 09:08> Assessment and Plan: Feels much better this morning NG tube output high overnight No vomiting Denies significant pain Small amounts of flatus, no BMs Abdomen much less distended, soft, no guarding, no rebound Incision on the right groin clean and dry, no evidence of recurrence hernia Keep NG tube in place IV fluid hydration Ambulate He clinically looks well Seen and examined independently <Poncho Montgomery MD - Last Filed: 03/09/25 15:37> Time Spent With Patient Time: Total time managing care of this patient today ____ minutes. <Haroldo Langston PA-C - Last Filed: 03/09/25 09:08> Quality Stroke Does the patient have a stroke diagnosis?: No <Haroldo Langston PA-C - Last Filed: 03/09/25 09:08> VTE Prior VTE?: No <Haroldo Langston PA-C - Last Filed: 03/09/25 09:08> VTE Risk Level:: Medical - moderate - high <Haroldo Langston PA-C - Last Filed: 03/09/25 09:08> VTE Device Contraindication: Treatment Not Indicated <Haroldo Langston PA-C - Last Filed: 03/09/25 09:08> VTE Drug Contraindication: N/A - Med Ordered <Haroldo Langston PA-C - Last Filed: 03/09/25 09:08>
--- NOTE | 2025-03-09 08:59 | P.PNNP_ITS ---
Subjective Subjective Date of Service: 03/09/25 Interval history: following for hyponatremia- acute on chronic, and HAYDER sodium 135 today creatinine increased to 2.66 7/, up from 1.43, today down to 2.11. GFR 50->60 at baseline. no nephrotoxins, BP hypotensive yesterday 03/07 to 91/55, receiving LR at 125ml/hr Physical Exam 2 Vital Signs: Vital Signs: Last Vital Signs Temp 98.4 F 03/09/25 07:38 Pulse 91 03/09/25 07:38 Resp 18 03/09/25 07:38 BP 141/63 H 03/09/25 07:38 Pulse Ox 93 03/09/25 08:14 O2 Del Method Room Air 03/09/25 08:14 O2 Flow Rate 6 03/09/25 07:38 FiO2 28 03/08/25 19:16 BMI result Body Mass Index 19.1 Const: General: no acute distress, alert and awake Resp: Effort & Inspection: normal respiratory effort and able to speak in complete sentences Auscultation: clear to auscultation bilaterally Cardio: Jugular venous distension: no JVD Rate: regular rate Rhythm: r egular rhythm Heart sounds: S1 normal heart sound present and S2 normal heart sound present GI: Palpation (GI): Soft to palpation and Tenderness to palpation present (GI) : General: Yes no CVA tenderness Back/Spine/Pelvis: Back: no CVA tenderness Skin: Rashes: no rashes Extrem: General: No edema Objective Data Labs 03/08/25 05:34 03/09/25 08:17 Labs: Laboratory Results - last 24 hr 03/09/25 08:17 Sodium 135 Potassium 3.9 Chloride 88 L Carbon Dioxide 31 H Anion Gap 20 BUN 57 H Creatinine 2.11 H Estim Creat Clear Calc 27.9 Estimated GFR 31 Random Glucose 109 Calcium 10.0 Microbiology Microbiology Results: Microbiology 03/01/25 13:21 Blood - Venous Blood Culture - Final No growth after 5 days. 03/01/25 13:21 Blood - Venous Blood Culture - Final No growth after 5 days. 03/01/25 Unknown Urine clean catch - Clean Catch Midstream Urine Culture - Final Enterococcus faecalis Procedures Date of Service Date of Service: 03/09/25 Assessment & Plan Assessment and plan (1) Hyponatremia: Status: Acute (2) HAYDER (acute kidney injury): Status: Acute Plan Hyponatremia- stable HAYDER- likely hemodynamic HAYDER from hypotension and hypovolemia. Improving. Continue IVF patient ok for PICC line to allow for TPN administration avoid nephrotoxins, avoid hypotension recommend daily electrolyte and renal function studies continue supportive care Discussed with Dr Osborn. Time Spent With Patient Time: Total time managing care of this patient today ____ minutes. Progress Note: Quality Stroke Does the patient have a stroke diagnosis?: No
[2025-03-09 09:03] LABS: Albumin Level 4.2 g/dL (3.5-5.0); Magnesium 2.6 mg/dL (1.6-2.6)
--- NOTE | 2025-03-09 09:52 | PC.NURSE ---
Pt was able to ambulate down the length of the hallway with 1A and walker, tolerated well. Extensive education given regarding NGT placement and its purpose. Pt needing frequent reminders and reiteration on subject.
[2025-03-09 10:39] VITALS: BMI 19.1
--- NOTE | 2025-03-09 10:47 | MHC.CLN ---
CONSULT PT IS SEVERELY MALNOURISHED PT WITH 23% SIGNIFICANT WEIGHT LOSS X ONE YEAR WITH MODERATE DEPLETION OF BODY FAT AND MUSCLE MASS. PT WITH MULTIPLE EPISODES OF NAUSEA AND VOMITING-NGT PLACE UNDER ANESTHESIA CONSULT TO START TPN-PICC LINED ORDERED BUT NO CONFIRMED PLACEMENT AT THIS TIME REVIEWED LABS DISCUSSED WITH PHARMACY RECOMMEND PPN UNTIL PICC LINE IS PLACED AT 60ML/HR TO PROVIDE 734KCALS, 144G DEXTROSE, 61G PROTEIN REPLETE LYTES NEEDED WILL SWITCH TO TPN ONCE PICC LINED CONFIRMED PLACED PT MAY BE AT RISK FOR RE-FEEDING -MONITOR MG, PHOS AND K+ CLOSELY SEE FULL CLINICAL NUTRITION ASSESSMENT
--- NOTE | 2025-03-09 15:06 | PC.NURSE ---
Addendum entered by May Santacruz RN 03/09/25 17:21: 1715 pt passed 3 small firm stool fragments Addendum entered by May Santacruz RN 03/09/25 15:29: 1530 MD Yi at bedside, preformed rectal exam and gave suppository. Pt tolerated well, denied pain. No blood noted. Original Note: MD Yi at bedside this AM, pt expressed to MD that he feels like he has to move his bowels but cannot. Per MD would look into a possible rectal exam, contingent upon surgery team input. Approximately 12:00 pt is demanding staff to check his rectum, pt educated that this RN and CNAs are unable to preform exam and must be done by MD. pt then proceeded to insert fingers into rectum. This RN instructed pt to stop and educated pt that this could cause injury to himself and it would be safer to wait for DrObey. 14:03 MD Yi made aware pt continues to ask for rectal exam. 15:06 MD Yi made aware Pt went to bathroom and blood was noted when pt wipped. This RN assessed rectum, no obvious signs of injury visible.
[2025-03-09 15:11] VITALS: BP 131/62; PULSE 60; RESP 18; TEMP 36.8; O2SAT 95
--- NOTE | 2025-03-09 15:37 | PM.EVENT ---
Event Note Date of Service: 03/09/25 Event Note: Seen on afternoon rounds Feels well Denies pain Passing small amounts of flatus Feels he needs to have a bowel movement Abdomen is soft and benign NG tube output high Keep NG tube in place for now He is ambulating and appears comfortable Exam benign TPN Discussed with hospitalist Time Spent With Patient Time: Total time managing care of this patient today ____ minutes.
--- NOTE | 2025-03-09 15:55 | HO.PM.IMPN ---
Subjective Subjective Date of Service: 03/09/25 Interval History: NG-tube drainage 3 L since insertion. Patient notes improvement. States feels like there is stool in his rectum. Review of Systems Denies chest pain Admits shortness of breath Admits to nausea without diarrhea admits vomiting Denies fever chills Physical Exam Vital Signs: Vital Signs: Last Vital Signs Temp 98.2 F 03/09/25 15:11 Pulse 60 03/09/25 15:11 Resp 18 03/09/25 15:11 BP 131/62 03/09/25 15:11 Pulse Ox 95 03/09/25 15:11 O2 Del Method Room Air 03/09/25 15:11 O2 Flow Rate 6 03/09/25 07:38 FiO2 28 03/08/25 19:16 BMI result Body Mass Index 19.1 Const: Other: Awake alert uncomfortable appearing Resp: Other: Clear to auscultation bilaterally no rales rhonchi or wheezes Cardio: Other: No S4; positive S1-S2; no S3 murmurs rubs or gallops GI: Other: Distended with quiet bowel sounds Extrem: Other: No edema bilaterally Objective Data Active Medications Acetaminophen (Acetaminophen 325 Mg Tablet) 650 mg PO Q6H PRN PRN Reason: Pain, Mild 1-3,fever,headache Last Admin: 03/02/25 20:47 Dose: 650 mg Documented By: MELANY Acetazolamide (Acetazolamide 250 Mg Tablet) 125 mg PO MoWeFr [facility] Last Admin: 03/08/25 08:13 Dose: Not Given Documented By: SALTY Non-Admin Reason: NPO Amoxicillin/Clavulanate Potassium (Amoxicillin/Potassium Clav 875 Mg Tablet) 875 mg PO Q12H [facility] Last Admin: 03/09/25 09:55 Dose: Not Given Documented By: MARIE Non-Admin Reason: NPO Atorvastatin Calcium (Atorvastatin Calcium 20 Mg Tablet) 20 mg PO DAILY [facility] Last Admin: 03/09/25 07:38 Dose: Not Given Documented By: MARIE Non-Admin Reason: NPO Calcium Carbonate/Cholecalciferol (Calcium + Vitamin D 250 Mg Tablet) 500 mg PO BIDWM [facility] Last Admin: 03/09/25 07:38 Dose: Not Given Documented By: MARIE Non-Admin Reason: NPO Doxazosin Mesylate (Doxazosin Mesylate 2 Mg Tablet) 8 mg PO DAILY [facility] Last Admin: 03/09/25 07:38 Dose: Not Given Documented By: MARIE Non-Admin Reason: NPO Empagliflozin (Empagliflozin 10 Mg Tablet) 10 mg PO DAILY [facility] Last Admin: 03/09/25 07:38 Dose: Not Given Documented By: MARIE Non-Admin Reason: NPO Enoxaparin Sodium (Enoxaparin Sodium 40 Mg/0.4 Ml Syringe) 40 mg SUBCUT Q24H [facility] Last Admin: 03/09/25 15:27 Dose: 40 mg Documented By: SALTY Lactated Ringer's (Lr) 1,000 mls @ 125 mls/hr IVCONT .Q8H [facility] Last Admin: 03/09/25 10:29 Dose: 125 mls/hr Documented By: MARIE Nutrition (Parenteral) (Parenteral Nutrition) 1,440 mls @ 60 mls/hr IV .Q24H [facility]; Protocol Stop: 03/10/25 20:59 Lidocaine (Lidocaine 4 % Patch Adh..Patch) 1 patch TRANSDERMA DAILY [facility]; Protocol Last Admin: 03/09/25 07:31 Dose: 1 patch Documented By: MARIE Melatonin (Melatonin 3 Mg Tablet) 6 mg PO BEDTIME PRN PRN Reason: Insomnia Metoclopramide HCl (Metoclopramide Hcl 10 Mg/2 Ml Vial) 5 mg IVPUSH Q6H PRN PRN Reason: Nausea and Vomiting Last Admin: 03/07/25 20:55 Dose: 5 mg Documented By: АЛЕКСАНДР Morphine Sulfate (Morphine Sulfate Er 15 Mg Tablet.Er) 15 mg PO Q12H [facility] Last Admin: 03/09/25 07:39 Dose: Not Given Documented By: MARIE Non-Admin Reason: NPO Morphine Sulfate (Morphine Sulfate 4 Mg/Ml Cartridge) 3 mg IVPUSH Q4H PRN; Protocol PRN Reason: Pain, Severe (Pain Scale 7-10) Last Admin: 03/09/25 04:19 Dose: 3 mg Documented By: JOAO Pt Own Vyndamax 61 (Mg) 1 each PO DAILY [facility] Last Admin: 03/09/25 07:38 Dose: Not Given Documented By: MARIE Non-Admin Reason: NPO Pt Own (Tolvaptan 30 (Mg Tablet)) 1 each PO DAILY [facility] Last Admin: 03/09/25 07:38 Dose: Not Given Documented By: MARIE Non-Admin Reason: NPO Ondansetron HCl (Ondansetron Hcl 4 Mg/2 Ml Vial) 4 mg IVPUSH Q6H PRN PRN Reason: Nausea and Vomiting Last Admin: 03/08/25 12:47 Dose: 4 mg Documented By: SALTY Pharmacy Consult (Consult Rx Parenteral Nutrition Ordering) 1 each MISCELLANE DAILY PRN PRN Reason: Consult order Pregabalin (Pregabalin 150 Mg Capsule) 150 mg PO BID [facility] Last Admin: 03/09/25 07:38 Dose: Not Given Documented By: MARIE Non-Admin Reason: NPO Senna/Docusate Sodium (Sennosides/Docusate Sodium Tablet) 2 tab PO DAILY [facility] Last Admin: 03/09/25 07:38 Dose: Not Given Documented By: MARIE Non-Admin Reason: NPO Sodium Chloride (0.9 % Sodium Chloride Flush 3 Ml Syringe) 3 ml IVFLUSH QSHIFT [facility] Last Admin: 03/09/25 15:31 Dose: Not Given Documented By: SALTY Non-Admin Reason: IV Running Spironolactone (Spironolactone 25 Mg Tablet) 50 mg PO BID@0900,1800 [facility]; Protocol Last Admin: 03/09/25 07:39 Dose: Not Given Documented By: MARIE Non-Admin Reason: NPO Torsemide (Torsemide 20 Mg Tablet) 80 mg PO BID [facility]; Protocol Last Admin: 03/09/25 07:39 Dose: Not Given Documented By: MARIE Non-Admin Reason: NPO Labs 03/08/25 05:34 03/09/25 08:17 Labs: Laboratory Results - last 24 hr 03/09/25 08:17 Anion Gap 20 Estim Creat Clear Calc 27.9 Estimated GFR 31 Random Glucose 109 Calcium 10.0 Phosphorus 3.8 Magnesium 2.6 Albumin 4.2 Assessment and Plan (1) S/P small bowel resection: Status: Acute (2) HAYDER (acute kidney injury): Status: Acute (3) Hyponatremia: Status: Acute Plan 75yo M with chronic hypoNa, CKD2, BPH, HFpEF, CAD, AF, 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 1.SBO -POD 4 open repair of right inguinal hernia repair with small bowel resection and right orchiectomy -NG-tube placed under anesthesia by Dr. Montgomery. . . 3000 cc since insertion -PICC/TPN...nutritional consult. Start TPN in am -rectal exam; stool in vault. Unable to disimpact secondary to soft stool -trial suppository.... Fleet enema I have unsuccessful 2.HAYDER,hypoNa,( acute-chronic) -responded to volume.. We will continue volume repletion. Sodium normalized -appreciate renal input -follow renals/divalents 3.Multiple rib fractures - lidocaine patch, MSSR + oxycodone, 4.LLL PNA - was on ceftriaxone and doxycycline; amoxicillin-clavulanate 03/03-03/05, changed to ampicillin-sulbactam 03/05-03/06 while NPO, change back to amoxicillin-clavulanate 03/06-03/08. -Unasyn to cover aspiration; incomplete treatment secondary to intermittent NPO status 5.Enterococcus faecalis UTI - amoxicillin-clavulanate as above 6.HFpEF - stable and well compensated at this time 7.CAD/AF - not on anticoagulation presumably due to fall risk Enoxaparin Full code In my clinical judgment, the patient requires continued inpatient hospitalization for the following reasons: postop care Quality Stroke Does the patient have a stroke diagnosis?: No VTE Prior VTE?: No VTE Risk Level:: Medical - moderate - high VTE Device Contraindication: Treatment Not Indicated VTE Drug Contraindication: N/A - Med Ordered
--- NOTE | 2025-03-09 17:14 | PC.NURSE ---
16:45 NGT in R nare, dsg intact, on intermittent low suction, output 300ml, green/brown liq
--- NOTE | 2025-03-09 18:06 | HO.PICC ---
PICC Line Insertion NPICC Diagnosis: SBO, UTI, PNA Indication: TPN Pertinent Labs: Reviewed Technique: Following informed consent including risks, benefits and alternatives and using sterile technique including cap and mask, sterile gown, glove and drape, the right arm was prepped and draped in the usual sterile fashion of full barrier technique with CHG. Following completion of [place] Protocol the skin and soft tissues were anesthetized with 1% Lidocaine plain. Using ultrasound guidance, right basilic vein access was obtained. Over an 0.018 wire through peel-away sheath, a 5fr triple lumen PASV PICC line was positioned. Catheter length is 41cm internal length, 0cm external length, for a total trimmed length of 41cm. The procedure was performed in rm [id number]. Tip verification was performed by Nabil Mcconnell with Sherlock 3CG. Tip located in SVC. Ultrasound was used to document vein patency and for needle entry. A formal ultrasound picture and cardiac rhythm strip was recorded. [facility] has released the line for use and it is currently dressed with a StatLock, Tegaderm, and CHG disc. Verification has been performed for blood return and line patency. Arm Circumference: 24cm Equipment: [employer] POWER PICC SOLO HF Catheter with Sherlock 3CG tip Catheter Type: 5FR triple lumen PASV PICC Lot #: [id number]
--- NOTE | 2025-03-09 18:57 | P.CDIM_ITS ---
PROVIDER RESPONSE TEXT: To clarify, the appropriate diagnosis supported by the clinical indicators: Moderate QUERY TEXT: PHYSICIAN'S DOCUMENTATION REQUEST Date of Query: 03/08/2025 12:13 PM EDT Patient Name: Sanket Little Admit Date: 03/01/2025 Dear Scotty Yi DO, A review of the medical record indicates additional documentation may be needed. Please review below and update the documentation accordingly. Documentation includes the diagnosis of Failure to thrive. HT: 6'2 WT: 67.5 kg BMI 19.1 Additional clinical indicators from the record include: Per Clinical Nutrition Assessment 03/06/25: significant weight loss x one year, moderate depletion of body fat and muscle mass, history laryngeal cancer qualifies as moderately malnourished in the context of chronic illness If possible, please provide additional specificity regarding the severity of the malnutrition using the above information: Moderate Other (explain) Clinically unable to determine (explain) Thank you, Yany Krishnamurthy RN Use of terms such as suspected, likely, concern for, or probable (associated with a specific diagnosis that is being evaluated, monitored, or treated as if it exists) are acceptable and can be coded in the inpatient setting, when documented at the time of discharge. Please use your independent medical judgment in providing your response. THIS QUERY IS PART OF THE PERMANENT MEDICAL RECORD
[2025-03-09 19:49] VITALS: BP 116/57; PULSE 53; RESP 18; TEMP 36.7; O2SAT 94
[2025-03-09] MEDS: Parenteral Nutrition 1,440 ML 60 ML IV (20:45)
[2025-03-09] MEDS: 0.9 % Sodium Chloride Flush 10 ML SYRINGE IVFLUSH (20:47)
[2025-03-10 03:24] VITALS: BP 154/67; PULSE 53; RESP 18; TEMP 36.7; O2SAT 98
[2025-03-10] MEDS: Lactated Ringers 1,000 ML 125 ML IVCONT ×3 (04:35→22:04)
[2025-03-10 07:05] VITALS: BP 123/54; PULSE 68; RESP 18; TEMP 36.6; O2SAT 99
[2025-03-10 07:26] LABS: Albumin Level 3.5 g/dL (3.5-5.0); Anion Gap 17 (12-20); Blood Urea Nitrogen 52 mg/dL (9-16); Calcium 9.5 mg/dL (8.4-10.2); Carbon Dioxide 34 mmol/L (22-29); Chloride 96 mmol/L (96-108); Creatinine Clr Calc Pharmacy 40.4; Estimated Glomerular Filt Rate 47; Magnesium 2.7 mg/dL (1.6-2.6); Potassium 2.6 mmol/L (3.3-5.1); Sodium 144 mmol/L (135-145)
--- NOTE | 2025-03-10 07:52 | PC.NURSE ---
At change of shift, PCT was taking patient vital signs, PCT got charge nurse as spO2 was 70% on room air and HR was 150. Charge nurse applied 5L, 28% trach mask. This RN came in, increased oxygen to 10 L 98% trach mask, Respiratory called to bedside. Patient awake and alert, encouraged to take deep breaths. O2 sat increased to 95%, RT titrate O2 down to 10L, 40%. MD Yi notified via tigerconnect, CXR ordered, patient placed on continuous spO2 monitoring. Patient O2 sat 95%, patient tolerated getting up to bedside commode with 2 person assist. Sitter remains at bedside.
[2025-03-10] MEDS: Potassium Chloride/H20 10 MEQ/100 ML PIGGYBACK 100 MEQ IV ×4 (08:43→13:14)
[2025-03-10] MEDS: 0.9 % Sodium Chloride Flush 10 ML SYRINGE IVFLUSH (08:56)
[2025-03-10] MEDS: 0.9 % Sodium Chloride Flush 3 ML SYRINGE IVFLUSH (08:57)
--- NOTE | 2025-03-10 09:34 | PC.NURSE ---
Discussed with Provider Kassidy in person regarding PO medications and NPO order. Patient placed on green feed attendant due to electrolytes abnormality, waste handling technician informed RN at 09:01 via tigeconnect that patient is having bigeminy, Provider Kassidy aware. Patient titrated down O2, O2 sat 95% on 5L, 28%, patient encouraged to cough and deep breath as patient is unable to perform incentive spirometer due to laryngectomy.
--- NOTE | 2025-03-10 09:43 | MHC.CLN ---
F/U CONTINUES NPO WITH NGT FOR OUTPUT. PICC LINE PRESENT. REVIEWED LABS. COMMUNICATED WITH PHARMACY. RECOMMEND TPN AT 80 ML PER HOUR TO PROVIDE 96 G PROTEIN, 288 G DEXTROSE, 1363 KCALS. REPLETE LYTES NEEDED. CHECK TRIGLYCERIDES. IF ABLE, ADVANCE TO MAX GOAL RATE TPN ON 03/11. MAX GOAL RATE TPN AT 100 ML PER HOUR, ADD 60 G LIPIDS TO PROVIDE 120 G PROTEIN (1.78 G/KG); 360 G DEXTROSE; 2304 TOTAL KCALS (34.1 KCALS/KG). REPLETE LYTES NEEDED. FOLLOW FOR TPN TOLERANCE, LYTES AND DIET STATUS. PT MAY BE AT RISK FOR RE-FEEDING -MONITOR MG, PHOS AND K+ CLOSELY. RD AVAILABLE VIA TIGER TEXT FOR WEEKEND.
--- NOTE | 2025-03-10 09:46 | PC.NURSE ---
1:1 sitter came to nurse and reported patient pulled out NG tube. Upon assessment, patient had NG tube in hand, patient reported he awoke from a vivid dream telling him he could remove all the stickers and everything and began pulling out NG tube. Patient very apologetic about it and aware of situation when fully awake. Provider Kassidy notified in person and provider came to bedside to speak to patient.
[2025-03-10 10:49] VITALS: O2SAT 94
[2025-03-10] MEDS: Lidocaine 4 % Patch ADH..PATCH 1 PATCH TRANSDERMA (11:28)
--- NOTE | 2025-03-10 12:36 | P.PNIM_ITS ---
Subjective Subjective Date of Service: 03/10/25 Interval History: Patient inadvertently pulled NG-tube this a.m.. Had several bowel movements per staff Review of Systems Denies chest pain Admits shortness of breath Admits to nausea without diarrhea admits vomiting Denies fever chills Physical Exam 2 Vital Signs: Vital Signs: Last Vital Signs Temp 97.9 F 03/10/25 07:05 Pulse 68 03/10/25 07:05 Resp 18 03/10/25 07:05 BP 123/54 L 03/10/25 07:05 Pulse Ox 94 03/10/25 10:49 O2 Del Method Trach Collar 03/10/25 10:49 O2 Flow Rate 5 03/10/25 10:49 FiO2 28 03/10/25 10:49 BMI result Body Mass Index 19.1 Const: Other: Awake alert uncomfortable appearing Resp: Other: Clear to auscultation bilaterally no rales rhonchi or wheezes Cardio: Other: No S4; positive S1-S2; no S3 murmurs rubs or gallops GI: Other: Distended with quiet bowel sounds Extrem: Other: No edema bilaterally Objective Data Active Medications Acetaminophen (Acetaminophen 325 Mg Tablet) 650 mg PO Q6H PRN PRN Reason: Pain, Mild 1-3,fever,headache Last Admin: 03/02/25 20:47 Dose: 650 mg Documented By: MELANY Acetazolamide (Acetazolamide 250 Mg Tablet) 125 mg PO MoWeFr [facility] Last Admin: 03/10/25 10:16 Dose: Not Given Documented By: KASSANDRA Non-Admin Reason: NPO Amoxicillin/Clavulanate Potassium (Amoxicillin/Potassium Clav 875 Mg Tablet) 875 mg PO Q12H [facility] Last Admin: 03/10/25 10:18 Dose: Not Given Documented By: KASSANDRA Non-Admin Reason: NPO Atorvastatin Calcium (Atorvastatin Calcium 20 Mg Tablet) 20 mg PO DAILY [facility] Last Admin: 03/10/25 10:16 Dose: Not Given Documented By: KASSANDRA Non-Admin Reason: NPO Calcium Carbonate/Cholecalciferol (Calcium + Vitamin D 250 Mg Tablet) 500 mg PO BIDWM [facility] Last Admin: 03/10/25 10:18 Dose: Not Given Documented By: KASSANDRA Non-Admin Reason: NPO Doxazosin Mesylate (Doxazosin Mesylate 2 Mg Tablet) 8 mg PO DAILY [facility] Last Admin: 03/10/25 10:16 Dose: Not Given Documented By: KASSANDRA Non-Admin Reason: NPO Empagliflozin (Empagliflozin 10 Mg Tablet) 10 mg PO DAILY [facility] Last Admin: 03/10/25 10:17 Dose: Not Given Documented By: KASSANDRA Non-Admin Reason: NPO Enoxaparin Sodium (Enoxaparin Sodium 40 Mg/0.4 Ml Syringe) 40 mg SUBCUT Q24H [facility] Last Admin: 03/09/25 15:27 Dose: 40 mg Documented By: SALTY Lactated Ringer's (Lr) 1,000 mls @ 125 mls/hr IVCONT .Q8H [facility] Last Admin: 03/10/25 04:35 Dose: 125 mls/hr Documented By: MYAH Nutrition (Parenteral) (Parenteral Nutrition) 1,440 mls @ 60 mls/hr IV .Q24H RAK[facility]; Protocol Stop: 03/10/25 20:59 Last Admin: 03/09/25 20:45 Dose: 60 mls/hr Documented By: MYAH Ampicillin Sodium/Sulbactam (Sodium 3 gm/ Sodium Chloride) 100 mls @ 200 mls/hr IV Q12H [facility] Last Infusion: 03/10/25 05:09 Dose: Infused Documented By: MYAH Nutrition (Parenteral) (Parenteral Nutrition) 1,920 mls @ 80 mls/hr IV .Q24H [facility]; Protocol Stop: 03/11/25 20:59 Lidocaine (Lidocaine 4 % Patch Adh..Patch) 1 patch TRANSDERMA DAILY [facility]; Protocol Last Admin: 03/10/25 11:28 Dose: 1 patch Documented By: KASSANDRA Melatonin (Melatonin 3 Mg Tablet) 6 mg PO BEDTIME PRN PRN Reason: Insomnia Metoclopramide HCl (Metoclopramide Hcl 10 Mg/2 Ml Vial) 5 mg IVPUSH Q6H PRN PRN Reason: Nausea and Vomiting Last Admin: 03/07/25 20:55 Dose: 5 mg Documented By: KEN-TRIXIE Morphine Sulfate (Morphine Sulfate Er 15 Mg Tablet.Er) 15 mg PO Q12H [facility] Last Admin: 03/10/25 10:18 Dose: Not Given Documented By: KASSANDRA Non-Admin Reason: NPO Morphine Sulfate (Morphine Sulfate 4 Mg/Ml Cartridge) 3 mg IVPUSH Q4H PRN; Protocol PRN Reason: Pain, Severe (Pain Scale 7-10) Last Admin: 03/10/25 00:38 Dose: 3 mg Documented By: MYAH Pt Own Vyndamax 61 (Mg) 1 each PO DAILY [facility] Last Admin: 03/10/25 10:17 Dose: Not Given Documented By: KASSANDRA Non-Admin Reason: NPO Pt Own (Tolvaptan 30 (Mg Tablet)) 1 each PO DAILY [facility] Last Admin: 03/10/25 10:17 Dose: Not Given Documented By: KASSANDRA Non-Admin Reason: NPO Ondansetron HCl (Ondansetron Hcl 4 Mg/2 Ml Vial) 4 mg IVPUSH Q6H PRN PRN Reason: Nausea and Vomiting Last Admin: 03/10/25 00:38 Dose: 4 mg Documented By: MYAH Pharmacy Consult (Consult Rx Parenteral Nutrition Ordering) 1 each MISCELLANE DAILY PRN PRN Reason: Consult order Pregabalin (Pregabalin 150 Mg Capsule) 150 mg PO BID [facility] Last Admin: 03/10/25 10:17 Dose: Not Given Documented By: KASSANDRA Non-Admin Reason: NPO Senna/Docusate Sodium (Sennosides/Docusate Sodium Tablet) 2 tab PO DAILY [facility] Last Admin: 03/10/25 10:17 Dose: Not Given Documented By: KASSANDRA Non-Admin Reason: NPO Sodium Chloride (0.9 % Sodium Chloride Flush 3 Ml Syringe) 3 ml IVFLUSH [facility] Last Admin: 03/10/25 08:57 Dose: 3 ml Documented By: KASSANDRA Sodium Chloride (0.9 % Sodium Chloride Flush 10 Ml Syringe) 10 ml IVFLUSH [facility] Last Admin: 03/10/25 08:56 Dose: 10 ml Documented By: KASSANDRA Spironolactone (Spironolactone 25 Mg Tablet) 50 mg PO BID@0900,1800 [facility]; Protocol Last Admin: 03/10/25 10:17 Dose: Not Given Documented By: KASSANDRA Non-Admin Reason: NPO Torsemide (Torsemide 20 Mg Tablet) 80 mg PO BID [facility]; Protocol Last Admin: 03/10/25 10:17 Dose: Not Given Documented By: KASSANDRA Non-Admin Reason: NPO Labs 03/08/25 05:34 03/10/25 05:56 Labs: Laboratory Results - last 24 hr 03/10/25 05:56 Hold Purple Top SEE NOTE Anion Gap 17 Estim Creat Clear Calc 40.4 Estimated GFR 47 Random Glucose 126 H Calcium 9.5 Phosphorus 2.9 Magnesium 2.7 H Albumin 3.5 Assessment and Plan (1) S/P small bowel resection: Status: Acute (2) HAYDER (acute kidney injury): Status: Acute (3) Hyponatremia: Status: Acute Plan 75yo M with chronic hypoNa, CKD2, BPH, HFpEF, CAD, AF, 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 1.SBO -POD 5 open repair of right inguinal hernia repair with small bowel resection and right orchiectomy -NG-tube inadvertently removed by patient. No vomiting since removal -TPN as ordered -trial suppository.... Fair results 2.HAYDER,hypoNa,( acute-chronic) -responded to volume.. We will continue volume repletion. Sodium normalized -appreciate renal input -follow renals/divalents 3.Multiple rib fractures - lidocaine patch, MSSR + oxycodone, 4.LLL PNA - was on ceftriaxone and doxycycline; amoxicillin-clavulanate 03/03-03/05, changed to ampicillin-sulbactam 03/05-03/06 while NPO, -Unasyn (1) to cover aspiration; incomplete treatment secondary to intermittent NPO status 5.Enterococcus faecalis UTI -Unasyn as above 6.HFpEF - stable and well compensated at this time 7.CAD/AF - not on anticoagulation presumably due to fall risk Enoxaparin Full code In my clinical judgment, the patient requires continued inpatient hospitalization for the following reasons: postop care Quality Stroke Does the patient have a stroke diagnosis?: No VTE Prior VTE?: No VTE Risk Level:: Medical - moderate - high VTE Device Contraindication: Treatment Not Indicated VTE Drug Contraindication: N/A - Med Ordered
[2025-03-10 15:31] VITALS: BP 137/63; PULSE 56; RESP 18; TEMP 36.6; O2SAT 93
--- NOTE | 2025-03-10 16:13 | PC.NURSE ---
Ambulated patient in hallway with 2 stand by assist. patient placed on 40%, 6L oxygen trach mask per RT recommendation. Patient ambulated down hallway, then became tachycardic HR increased from 60 to 135 and advised to sit in wheel chair and patient wheeled back to room. Patient had increased thick, creaming sputum production, no desaturation occurred while ambulating. Patient reported feeling tired after ambulation. Patient back to bed with 1:1 sitter, bed alarm and call brown in reach.
--- NOTE | 2025-03-10 16:20 | PC.NURSE ---
Patient becoming very anxious per patient report. Patient have frequent flatus and smears, but no significant bowel movement during this shift. Patient placed in wheel chair with stand by assist and wheeled around unit to assist with anxiousness as patient stated he was getting frustrated being in the bed. [place] patient around unit seemed to help anxiety per patient report. Patient educated to ring for assistance, call brown within reach.
[2025-03-10 19:49] VITALS: BP 129/63; PULSE 61; RESP 16; TEMP 35.9; O2SAT 100
[2025-03-10] MEDS: Parenteral Nutrition 1,920 ML 80 ML IV (21:00)
[2025-03-11 04:00] VITALS: BP 143/64; PULSE 70; RESP 20; TEMP 36; O2SAT 96
[2025-03-11 06:06] LABS: Albumin Level 3.8 g/dL (3.5-5.0); Anion Gap 18 (12-20); Blood Urea Nitrogen 34 mg/dL (9-16); Calcium 10.4 mg/dL (8.4-10.2); Carbon Dioxide 25 mmol/L (22-29); Chloride 109 mmol/L (96-108); Creatinine Clr Calc Pharmacy 62.1; Estimated Glomerular Filt Rate > 60; Magnesium 2.4 mg/dL (1.6-2.6); Potassium 3.5 mmol/L (3.3-5.1); Sodium 148 mmol/L (135-145); Triglycerides 108 mg/dL (<150)
[2025-03-11] MEDS: Lactated Ringers 1,000 ML 125 ML IVCONT (06:07)
[2025-03-11 07:45] VITALS: BP 126/59; PULSE 63; RESP 18; TEMP 36.3; O2SAT 95
[2025-03-11] MEDS: Lidocaine 4 % Patch ADH..PATCH 1 PATCH TRANSDERMA (08:42)
--- NOTE | 2025-03-11 12:03 | PC.NURSE ---
Pt pulled out his PICC line, Pt is monitored by the VMT and Nursing staff was not notified. notified that patient pulled out picc line.
--- NOTE | 2025-03-11 12:09 | PC.NURSE ---
PICC Line measures the same length as PICC report states, Cath Tip intact, will attempted a peripheral IV.
--- NOTE | 2025-03-11 13:05 | PC.NURSE ---
Hold PPN per Pharmacy, notified, NO PICC Line.
--- NOTE | 2025-03-11 13:53 | P.PNIM_ITS ---
Subjective Subjective Date of Service: 03/11/25 Interval History: Anxious this a.m.. Given hydroxyzine with good effect however patient pulled PICC line Review of Systems Denies chest pain Admits shortness of breath Admits to nausea without diarrhea admits vomiting Denies fever chills Physical Exam 2 Vital Signs: Vital Signs: Last Vital Signs Temp 97.4 F 03/11/25 07:45 Pulse 63 03/11/25 07:45 Resp 18 03/11/25 07:45 BP 126/59 L 03/11/25 07:45 Pulse Ox 95 03/11/25 07:45 O2 Del Method Room Air 03/11/25 07:45 O2 Flow Rate 6 03/11/25 04:00 FiO2 28 03/10/25 10:49 BMI result Body Mass Index 19.1 Const: Other: Awake alert uncomfortable appearing Resp: Other: Clear to auscultation bilaterally no rales rhonchi or wheezes Cardio: Other: No S4; positive S1-S2; no S3 murmurs rubs or gallops GI: Other: Distended with quiet bowel sounds Extrem: Other: No edema bilaterally Objective Data Active Medications Acetaminophen (Acetaminophen 325 Mg Tablet) 650 mg PO Q6H PRN PRN Reason: Pain, Mild 1-3,fever,headache Last Admin: 03/02/25 20:47 Dose: 650 mg Documented By: MELANY Enoxaparin Sodium (Enoxaparin Sodium 40 Mg/0.4 Ml Syringe) 40 mg SUBCUT Q24H [facility] Last Admin: 03/10/25 16:03 Dose: 40 mg Documented By: KASSANDRA Ampicillin Sodium/Sulbactam (Sodium 3 gm/ Sodium Chloride) 100 mls @ 200 mls/hr IV Q12H [facility] Last Infusion: 03/11/25 06:07 Dose: Infused Documented By: EM Nutrition (Parenteral) (Parenteral Nutrition) 1,920 mls @ 80 mls/hr IV .Q24H [facility]AK[facility]; Protocol Stop: 03/11/25 20:59 Last Infusion: 03/11/25 13:05 Dose: Infused Documented By: RANDOLPH Nutrition (Parenteral) (Parenteral Nutrition) 2,400 mls @ 100 mls/hr IV .Q24H [facility]; Protocol Last Admin: 03/11/25 13:06 Dose: Not Given Documented By: HO.COUGHLM Non-Admin Reason: DO NOT GIVE PER PHARMC[facility] Lidocaine (Lidocaine 4 % Patch Adh..Patch) 1 patch TRANSDERMA DAILY [facility]; Protocol Last Admin: 03/11/25 08:42 Dose: 1 patch Documented By: MINH Metoclopramide HCl (Metoclopramide Hcl 10 Mg/2 Ml Vial) 5 mg IVPUSH Q6H PRN PRN Reason: Nausea and Vomiting Last Admin: 03/07/25 20:55 Dose: 5 mg Documented By: KEN-TRIXIE Ondansetron HCl (Ondansetron Hcl 4 Mg/2 Ml Vial) 4 mg IVPUSH Q6H PRN PRN Reason: Nausea and Vomiting Last Admin: 03/10/25 00:38 Dose: 4 mg Documented By: MYAH Pharmacy Consult (Consult Rx Parenteral Nutrition Ordering) 1 each MISCELLANE DAILY PRN PRN Reason: Consult order Sodium Chloride (0.9 % Sodium Chloride Flush 10 Ml Syringe) 10 ml IVFLUSH QSHIFT [facility] Last Admin: 03/11/25 08:59 Dose: Not Given Documented By: MINH Non-Admin Reason: IV Running Torsemide (Torsemide 20 Mg Tablet) 80 mg PO BID [facility]; Protocol Last Admin: 03/11/25 08:59 Dose: Not Given Documented By: MINH Non-Morro Reason: NPO Labs 03/08/25 05:34 03/11/25 05:28 Labs: Laboratory Results - last 24 hr 03/11/25 05:28 Anion Gap 18 Estim Creat Clear Calc 62.1 Estimated GFR > 60 Random Glucose 116 H Calcium 10.4 H D Phosphorus 1.3 L Magnesium 2.4 Albumin 3.8 Triglycerides 108 Assessment and Plan (1) S/P small bowel resection: Status: Acute (2) HAYDER (acute kidney injury): Status: Acute Plan 75yo M with chronic hypoNa, CKD2, BPH, HFpEF, CAD, AF, 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 1.SBO -s/p open repair of right inguinal hernia repair with small bowel resection and right orchiectomy -NG-tube inadvertently removed by patient. No vomiting since removal -TPN started... PPN DC -trial suppository.... Fair results 2.HAYDER,hypoNa,( acute-chronic) -normalized -appreciate renal input -follow renals/divalents 3.Multiple rib fractures - lidocaine patch, MSSR + oxycodone, 4.LLL PNA - was on ceftriaxone and doxycycline; amoxicillin-clavulanate 03/03-03/05, changed to ampicillin-sulbactam 03/05-03/06 while NPO, -Unasyn (2) to cover aspiration; incomplete treatment secondary to intermittent NPO status 5.Enterococcus faecalis UTI -Unasyn as above 6.HFpEF - stable and well compensated at this time 7.CAD/AF - not on anticoagulation presumably due to fall risk Enoxaparin Full code In my clinical judgment, the patient requires continued inpatient hospitalization for the following reasons: postop care Quality Stroke Does the patient have a stroke diagnosis?: No VTE Prior VTE?: No VTE Risk Level:: Medical - moderate - high VTE Device Contraindication: Treatment Not Indicated VTE Drug Contraindication: N/A - Med Ordered
[2025-03-11] MEDS: Potassium Phosphate/NS 15 MMOL/250 ML PLAST..BAG 62.5 MMOL IV ×2 (14:19→18:18)
[2025-03-11] MEDS: Dextrose 5 % and Lactated Ring 1,000 ML 100 ML IVCONT (14:19)
[2025-03-11 15:30] VITALS: BP 137/60; PULSE 76; RESP 18; TEMP 36.4; O2SAT 94
--- NOTE | 2025-03-11 19:28 | MHC.CLN ---
F/U CONTINUES NPO. PICC LINE PULLED BY PATIENT TODAY. REVIEWED LABS. COMMUNICATED WITH PHARMACY. RECOMMEND PPN UNTIL PICC LINE REPLACED. PPN AT 80 ML PER HOUR TO PROVIDE 82 G PROTEIN, 192 G DEXTROSE, 979 KCALS. REPLETE LYTES NEEDED. FOLLOW FOR PPN/TPN ADVANCEMENT.
[2025-03-11 20:00] VITALS: BP 130/61; PULSE 69; RESP 19; TEMP 36.7; O2SAT 94
[2025-03-12] VITALS (21 sets, daily range): BP systolic 95–135; BP diastolic 40–81; PULSE 62–116; RESP 15–40; TEMP 36.4–37.1; O2SAT 89–100
--- NOTE | 2025-03-12 | ECG_ITS ---
Test Reason : heart failure Blood Pressure : */* mmHG Vent. Rate : 68 BPM Atrial Rate : * BPM P-R Int : * ms QRS Dur : 96 ms QT Int : 470 ms P-R-T Axes : * -17 80 degrees QTcB Int : 499 ms Atrial fibrillation Nonspecific ST and T wave abnormality Abnormal ECG When compared with ECG of 16-Feb-2025 22:33, Atrial fibrillation has replaced Electronic ventricular pacemaker Referred By: Tiara Marroquin Electronically Signed By: FLAVIA MINER MD
--- NOTE | 2025-03-12 03:43 | PC.NURSE ---
just before 2099 pt pooled out ivs from both arms he did have attached medication and iv fluids at this time. which caused skin tear on left arm . Camera is in place ., but when research specialist got to the room it was too late new ivs incerted.
[2025-03-12] MEDS: iohexoL 350 MG/ML 100 ML INFUS..BTL 85 ML IV (05:18)
[2025-03-12] MEDS: Dextrose 5 % and Lactated Ring 1,000 ML 100 ML IVCONT (05:31)
--- NOTE | 2025-03-12 05:47 | PM.EVENT ---
Event Note Date of Service: 03/12/25 Event Note: Abdominal pain: Patient reports having diffuse abdominal pain. Candidate to palpate with voluntary guarding. Patient RN mentioned that patient has been having loose stools. Patient has been on IV antibiotics for pneumonia/UTI since admission. Finish the course. We will hold Unasyn. Will obtain C diff Ordered for CT abdomen pelvis -SBO with transition point; Pain control General surgery consult- spoke to Urinary retention: Patient did not up to 700 cc of urine. Placed Weinstein catheter. Acute hypoxic respiratory failure: Patient has known history of HFpEF on torsemide b.i.d. Patient also receiving IV fluids at 100 cc/hour Patient reports short of breath. Noted equal air entry bilaterally. Fairly clear anteriorly. Patient on supplemental oxygen via trach collar at 10 L. Saturating 95%. Chest x-ray ordered -results pending Christian p.r.n. VBG-pH 7.6. BNP pending Patient appears to be anxious and tachypneic to 40s-> given dilaudid Held her torsemide-2 resume based on lab results and chest x-ray. ICU consulted. spoke to Dr Marroquin - accepted to ICU. Hypernatremia: Na was 148 has been receiving D5LR @100cc Na this is 155 Changed IVF to d5w @50cc Repeat BMP at 11am Diet: Patient on TPN. Will pass on to the day hospitalist for further management. Time Spent With Patient Time: Total time managing care of this patient today ____ minutes.
[2025-03-12 05:51] LABS: Venous Blood Gas Refer to POC result
[2025-03-12 05:54] LABS: VBG HCO3 23 mmol/L (22-26); VBG O2 % Saturation 97.0 %
[2025-03-12 06:00] LABS: Albumin Level 3.6 g/dL (3.5-5.0); Anion Gap 18 (12-20); Blood Urea Nitrogen 28 mg/dL (9-16); Calcium 9.1 mg/dL (8.4-10.2); Carbon Dioxide 21 mmol/L (22-29); Chloride 119 mmol/L (96-108); Creatinine Clr Calc Pharmacy 56.7; Estimated Glomerular Filt Rate > 60; Magnesium 2.0 mg/dL (1.6-2.6); Potassium 3.2 mmol/L (3.3-5.1); Sodium 155 mmol/L (135-145)
[2025-03-12 06:06] LABS: B Type Natriuretic Peptide 223 pg/mL (<100)
--- NOTE | 2025-03-12 07:29 | W.PM.CCCN ---
History of Present Illness Data of Consult Service Date: 03/12/25 Requesting physician: Oli Meredith Primary Care Provider: Felix Randle MD [facility] Reason for consult: Marked tachypnea rate 40 /possible recurrent small-bowel obstruction 75-year-old male status post laryngectomy for laryngeal carcinoma with a wide patent tracheal stoma but not cannulated postop incarcerated right inguinal hernia and right orchiectomy became tachypneic rate 40 as well as some abdominal distension but he was struggling with the bowel movement this morning and a repeat CAT scan shows loops with air-fluid level ileus versus mechanical obstruction again and they are questioning that it is near the anastomotic site He has longstanding COPD and also a background history of severe diastolic dysfunction with preserved ejection fraction and very significant biatrial enlargement certainly implying restrictive characteristics in fact he is even on tolvaptan and meaning he obviously needs enhance diuresis at home to keep him out of failure His chest x-ray as well as CAT scan shows some volume loss in the right middle and right lower lobe possible because of inspissated mucus can not rule out aspiration but no other infiltrates at all no free air no temperature spike but his blood gases indicative of a primary respiratory alkalosis and he says he is not short of breath and then he all of a sudden spontaneously slow down his respiratory rate to less than 20 and blood gas is 98% and his rhythm looks like atrial fib with and [place] a AV node conduction narrow QRS with the magnet he looks like 100% ventricularly paced at a rate of 95 and he is most probably with a background rhythm of AFib and he apparently has a Watchman device in his left atrial appendage but here he has also been on Lovenox for DVT prophylaxis while at bedrest Review of Systems Review of Systems: Ten point review of systems essentially negative no complaints of chest pain and he is not complaining of abdominal pain and unfortunately they did not take his rather extensive stool sample and send it down for C diff Yes all other systems are reviewed and are negative [facility] Past Medical History Medical History (Updated 03/12/25 @ 10:11 by Tiara Marroquin MD) COPD (chronic obstructive pulmonary disease) Heart failure with preserved ejection fraction (HFpEF) Presence of Watchman left atrial appendage closure device Atherosclerotic cardiovascular disease Recurrent inguinal hernia Pacemaker Right inguinal hernia History of laryngeal cancer Chronic a-fib BPH (benign prostatic hyperplasia) Family History Family History Father No problems noted. Mother History of hypertension Son No problems noted. Son No problems noted. Daughter No problems noted. Surgical History Surgical History History of left knee replacement Social History Social History Household Members: None Housing: House Alcohol intake: never Comment: 1:1 Patient Tobacco Use Status: Former Tobacco user Advance Directives Date on File: 02/17/25 service: No Meds Allergies Allergy/AdvReac Type Severity Reaction Status Date / Time No Known Allergies (No Known Allergy Verified 03/01/25 11:14 Allergies*) Active Medications: Current Medications Acetaminophen (Acetaminophen 325 Mg Tablet) 650 mg PO Q6H PRN PRN Reason: Pain, Mild 1-3,fever,headache Last Admin: 03/11/25 22:04 Dose: 650 mg Albuterol/Ipratropium (Albuterol/Iprat 2.5/0.5mg 3 Ml Ampul.Neb) 3 ml INHALE RQ4H WHILE AWAKE PRN PRN Reason: Shortness of Breath Enoxaparin Sodium (Enoxaparin Sodium 40 Mg/0.4 Ml Syringe) 40 mg SUBCUT Q24H RAKEL Last Admin: 03/11/25 14:20 Dose: 40 mg Hydromorphone HCl (Hydromorphone Hcl 0.5 Mg/0.5 Ml Syringe) 0.5 mg IVPUSH Q4H PRN; Protocol PRN Reason: Breakthrough Pain Ampicillin Sodium/Sulbactam (Sodium 3 gm/ Sodium Chloride) 100 mls @ 200 mls/hr IV Q12H RAKEL On Hold: 03/12/25 04:25 Last Infusion: 03/11/25 17:57 Dose: Infused Nutrition (Parenteral) (Parenteral Nutrition) 2,400 mls @ 100 mls/hr IV .Q24H RAKEL; Protocol On Hold: 03/11/25 21:00 Comment: pending replacement of PICC line Last Admin: 03/11/25 13:06 Dose: Not Given Dextrose (D5w) 1,000 mls @ 50 mls/hr IVCONT .Q20H RAKEL Potassium Chloride/Dextrose/Sod Cl (Kcl 40 Meq In 5% Dex/0.45% Sod) 40 meq in 1,000 mls @ 150 mls/hr IVCONT .Q6H40M [facility] Lidocaine (Lidocaine 4 % Patch Adh..Patch) 1 patch TRANSDERMA DAILY [facility]; Protocol Last Admin: 03/11/25 08:42 Dose: 1 patch Metoclopramide HCl (Metoclopramide Hcl 10 Mg/2 Ml Vial) 5 mg IVPUSH Q6H PRN On Hold: 03/12/25 06:47 PRN Reason: Nausea and Vomiting Last Admin: 03/07/25 20:55 Dose: 5 mg Ondansetron HCl (Ondansetron Hcl 4 Mg/2 Ml Vial) 4 mg IVPUSH Q6H PRN On Hold: 03/12/25 06:47 PRN Reason: Nausea and Vomiting Last Admin: 03/10/25 00:38 Dose: 4 mg Pharmacy Consult (Consult Rx Parenteral Nutrition Ordering) 1 each MISCELLANE DAILY PRN PRN Reason: Consult order Sodium Chloride (0.9 % Sodium Chloride Flush 10 Ml Syringe) 10 ml IVFLUSH QSHIFT [facility] Last Admin: 03/11/25 23:32 Dose: Not Given Torsemide (Torsemide 20 Mg Tablet) 80 mg PO BID [facility]; Protocol On Hold: 03/12/25 04:20 Last Admin: 03/11/25 22:04 Dose: 80 mg Home Medications ?Medication ?Instructions ?Recorded ?Confirmed ?Last Taken ?Type omeprazole 20 mg capsule,delayed 20 mg PO DAILY@0630 07/18/20 03/01/25 Unknown History release simvastatin 40 mg tablet 40 mg PO BEDTIME 07/18/20 03/01/25 Unknown History tafamidis 61 mg capsule (Vyndamax) 61 mg PO DAILY 03/09/24 03/01/25 Unknown History spironolactone 50 mg tablet 50 mg PO BID 07/01/24 03/01/25 Unknown History empagliflozin 10 mg tablet 10 mg PO DAILY 03/01/25 03/01/25 Unknown History (Jardiance) morphine 15 mg tablet,extended 15 mg PO BID 03/01/25 03/01/25 Unknown History release tolvaptan 30 mg tablet 30 mg PO DAILY 03/01/25 03/01/25 Unknown History Physical Exam Vital Signs: Vital Signs: Last Vital Signs Temp 98.5 F 03/12/25 07:19 Pulse 65 03/12/25 07:19 Resp 28 H 03/12/25 07:19 BP 118/54 L 03/12/25 07:19 Pulse Ox 95 03/12/25 07:19 O2 Del Method Trach Collar 03/12/25 07:19 O2 Flow Rate 5 03/12/25 05:29 FiO2 28 03/12/25 03:23 BMI result Body Mass Index 19.1 He is awake alert trying to converse but he fully understands with good cognitive function Skin is normal no skin rashes no acrocyanosis warm well-perfused Abdomen soft the actually has bowel sounds Chest he has got some minimal rhonchi bilaterally clearly has some upper airway mucus which we then suctioned diminished bilateral breath sounds but no wheezing Cardiac by bedside echo 1st of all showed a small inferior vena cava with inspiratory collapse so as filling pressures are low couple with a sodium of 153 he is definitely volume depleted most particularly free water and that is now being replaced but his LV dimensions and systolic function are normal if anything hyperdynamic there may be some degree of septal paradox and that may be even residual effect of of ventricular pacing from the right ventricle his atrial lead looks like it it in it may be attached to the lateral wall of of the right atrium or pulled back off but I do not even think it is program then according to the magnet rhythm but he definitely has significant biatrial enlargement no pericardial disease Results Labs 03/08/25 05:34 03/12/25 05:41 Labs: BMP 03/12/25 05:41 Sodium 155 H Potassium 3.2 L Chloride 119 H Carbon Dioxide 21 L BUN 28 H Creatinine 1.04 Calcium 9.1 D Liver Function 03/12/25 Range/Units 05:41 Albumin 3.6 (3.5-5.0) g/dL Microbiology Microbiology Results: Microbiology 03/01/25 13:21 Blood - Venous Blood Culture - Final No growth after 5 days. 03/01/25 13:21 Blood - Venous Blood Culture - Final No growth after 5 days. 03/01/25 Unknown Urine clean catch - Clean Catch Midstream Urine Culture - Final Enterococcus faecalis Assessment and Plan (1) Amyloid heart disease: Status: Acute (2) Atherosclerotic cardiovascular disease: Status: Acute (3) Chronic a-fib: Status: Acute (4) Presence of Watchman left atrial appendage closure device: Status: Acute (5) Presence of CardioMEMS HF system: Status: Acute (6) S/P small bowel resection: Status: Acute (7) Right inguinal hernia: Status: Acute (8) Recurrent inguinal hernia: Status: Acute (9) Incarcerated right inguinal hernia: Status: Acute (10) S/P inguinal hernia repair: Status: Acute (11) HAYDER (acute kidney injury): Status: Acute (12) Urinary tract infection: Status: Acute (13) BPH (benign prostatic hyperplasia): Qualifiers: Lower urinary tract symptom presence: symptoms present Lower urinary tract symptom detail: weak urinary stream Qualified Code(s): N40.1 - Benign prostatic hyperplasia with lower urinary tract symptoms; R39.12 - Poor urinary stream Status: Acute (14) S/P orchiectomy: Status: Acute (15) Physical deconditioning: Status: Acute (16) Heart failure with preserved ejection fraction (HFpEF): Status: Acute (17) COPD (chronic obstructive pulmonary disease): Status: Acute (18) Acute respiratory alkalosis: Status: Acute (19) Acute hypernatremia: Status: Acute (20) Hypovolemia: Status: Acute (21) Hypokalemia due to excessive gastrointestinal loss of potassium: Status: Acute Plan The plan now is to replete with a relatively hypo osmolality solution namely D5 half-normal with 40 mEq of potassium at 150 cc/hour and follow up on his electrolytes and renal function and check a serum lactic acid possibly procalcitonin cultures and if we obtain a sample at length the send a C diff and keep his antibiotic exactly as above I do not think further blood gas a pulmonary workup is necessary respiratory rate is significantly calmed down Total time managing care of this patient today: 45 minutes.
--- NOTE | 2025-03-12 07:31 | PC.NURSE ---
4am IT ARCHITECTURE CONSULTANT called this RN pt was very weak getting off the commode vss HR elevated 116 on tele AFIB he did have very large BM and before that he had 2 more BMS . pt states he dosnt feel good dr Bryant notified . PT ALSO HAD URINARY RETENTION MD PRESENT ORDER F/C placed #16 urinary output about 1000 ml . ORDERED PAIN MEDICATION and given dilaudid CT scn ordered and labs, and blood gas . nursing maid supervisor present. PT TO BE TRANSFERRED TO icu REPORT given to CARRY IN WORKER
[2025-03-12] MEDS: KCl 40 mEq in 5% Dex/0.45% Sod 40 MEQ/1,000 ML IV.SOLN 150 MEQ IVCONT (07:53)
[2025-03-12] MEDS: 0.9 % Sodium Chloride Flush 10 ML SYRINGE IVFLUSH ×3 (07:53→19:30)
[2025-03-12 08:11] LABS: Reflex Lactate? Lactic Acid Added
--- NOTE | 2025-03-12 08:56 | P.PNGS_ITS ---
Subjective Subjective Date of Service: 03/12/25 Interval history: Patient with increased tachypnea after having a bowel movement, transferred to ICU for further management. Patient unable to communicate his symptoms at this time. Physical Exam 2 Vital Signs: Vital Signs: Last Vital Signs Temp 98.8 F 03/12/25 08:00 Pulse 76 03/12/25 08:00 Resp 34 H 03/12/25 08:00 BP 135/54 L 03/12/25 08:00 Pulse Ox 100 03/12/25 08:00 O2 Del Method Trach Collar 03/12/25 08:00 O2 Flow Rate 2 03/12/25 08:00 FiO2 28 03/12/25 03:23 BMI result Body Mass Index 19.1 Const: General: anxious, confusion and ill appearing Nutritional Appearance: thin Orientation/consciousness: confusion Resp: Effort & Inspection: no cough and tachypneic GI: Other: Right inguinal incision is clean, dry, and intact without erythema or edema, no ecchymosis Palpation (GI): Soft to palpation, nontender and no guarding Neuro: General: confusion Objective Data Active Medications Albuterol/Ipratropium (Albuterol/Iprat 2.5/0.5mg 3 Ml Ampul.Neb) 3 ml INHALE RQ4H WHILE AWAKE PRN PRN Reason: Shortness of Breath Enoxaparin Sodium (Enoxaparin Sodium 40 Mg/0.4 Ml Syringe) 40 mg SUBCUT Q24H [facility] Last Admin: 03/11/25 14:20 Dose: 40 mg Documented By: MINH Hydromorphone HCl (Hydromorphone Hcl 0.5 Mg/0.5 Ml Syringe) 0.5 mg IVPUSH Q4H PRN; Protocol PRN Reason: Breakthrough Pain Last Admin: 03/12/25 08:46 Dose: 0.5 mg Documented By: OSKAR Ampicillin Sodium/Sulbactam (Sodium 3 gm/ Sodium Chloride) 100 mls @ 200 mls/hr IV Q12H [facility] Last Infusion: 03/11/25 17:57 Dose: Infused Documented By: MINH Dextrose (D5w) 1,000 mls @ 50 mls/hr IVCONT .Q20H [facility] Last Admin: 03/12/25 07:58 Dose: Not Given Documented By: OSKAR Non-Admin Reason: Physician Held Med Potassium Chloride/Dextrose/Sod Cl (Kcl 40 Meq In 5% Dex/0.45% Sod) 40 meq in 1,000 mls @ 150 mls/hr IVCONT .Q6H40M [facility] Last Admin: 03/12/25 07:53 Dose: 150 mls/hr Documented By: OSKAR Lidocaine (Lidocaine 4 % Patch Adh..Patch) 1 patch TRANSDERMA DAILY [facility]; Protocol Last Admin: 03/11/25 08:42 Dose: 1 patch Documented By: MINH Ondansetron HCl (Ondansetron Hcl 4 Mg/2 Ml Vial) 4 mg IVPUSH Q6H PRN PRN Reason: Nausea and Vomiting Last Admin: 03/10/25 00:38 Dose: 4 mg Documented By: MYAH Pharmacy Consult (Consult Rx Parenteral Nutrition Ordering) 1 each MISCELLANE DAILY PRN PRN Reason: Consult order Sodium Chloride (0.9 % Sodium Chloride Flush 10 Ml Syringe) 10 ml IVFLUSH QSHIFT [facility] Last Admin: 03/12/25 07:53 Dose: 10 ml Documented By: OSKAR Labs 03/08/25 05:34 03/12/25 05:41 Labs: Laboratory Results - last 24 hr 03/12/25 03/12/25 03/12/25 05:41 05:44 06:05 Hold Purple Top Hold Blue Top VBG pH 7.65 H* VBG pCO2 20 VBG pO2 76 VBG HCO3 23 VBG O2 Saturation 97.0 VBG Base Excess 4.1 Anion Gap 18 Estim Creat Clear Calc 56.7 Estimated GFR > 60 Random Glucose 87 Lactic Acid 2.4 H* Calcium 9.1 D Phosphorus 3.0 Magnesium 2.0 B-Natriuretic Peptide 223 H Albumin 3.6 Hold Green Top Hold Yellow Top 03/12/25 08:45 Hold Purple Top SEE NOTE Hold Blue Top SEE NOTE VBG pH VBG pCO2 VBG pO2 VBG HCO3 VBG O2 Saturation VBG Base Excess Anion Gap Estim Creat Clear Calc Estimated GFR Random Glucose Lactic Acid Calcium Phosphorus Magnesium B-Natriuretic Peptide Albumin Hold Green Top See Note Hold Yellow Top See Note Imaging CT scan - abdomen: My impression: Dilated loops of small bowel with air-fluid levels but anastomosis appears patent without clear obstruction Gas and stool noted within: Right inguinal Hernia repair intact with a small seroma in soft tissue Findings suggestive of adynamic bowel. Stomach is not excessively dilated. Radiologist's impression: IMPRESSION: 1. Interval right inguinal hernia repair. 2. Multiple dilated loops of small bowel containing air-fluid levels. The transition point appears to be at the level of the surgical anastomosis in the right hemipelvis. Findings are suspicious for a small-bowel obstruction. 3. Multiple surgical clips in the right pelvic wall with adjacent 3.3 x 1.5 cm subcutaneous fluid collection, likely representing a seroma. 4. Severe cardiomegaly with right lower lobe consolidation, similar to prior exam and likely representing round atelectasis. 5. Bilateral sacral ala, S1, and left L3-L5 transverse process fractures, similar to prior exam. Procedures Date of Service Date of Service: 03/12/25 Progress Note: A&P Assessment and plan (1) S/P inguinal hernia repair: Status: Acute (2) Incarcerated right inguinal hernia: Status: Acute (3) S/P small bowel resection: Status: Acute Plan 75-year-old male patient with multiple problems including laryngeal cancer status post laryngectomy, status post repair of a recurrent right inguinal hernia with small-bowel resection and orchiectomy. Patient developed increased dyspnea after getting up to have a bowel movement. He was subsequently transferred to ICU but appears to be breathing rapidly due to anxiety. Repeat CT abdomen and pelvis reviewed and does revealed dilated loops of small bowel possibly with a transition point at the anastomosis although to my reading of the scan, the anastomosis is patent and the hernia repair intact. Would hold on replacing NG tube given his difficult anatomy. Keep NPO and consider starting TPN once again. Time Spent With Patient Time: Total time managing care of this patient today ____ minutes. Quality Stroke Does the patient have a stroke diagnosis?: No VTE Prior VTE?: No VTE Risk Level:: Medical - moderate - high VTE Device Contraindication: Treatment Not Indicated VTE Drug Contraindication: N/A - Med Ordered
[2025-03-12 09:19] LABS: ~Lactic Acid-LAB USE ONLY 2.8 mmol/L (0.5-2.0)
--- NOTE | 2025-03-12 09:51 | PC.NURSE ---
Assumed care @ 0700 , patient being transferred to ICU for close monitoring of respiratory distress. Neuro:? Alert and oriented, restless requiring frequent redirection.? Respiratory: Decannulated tracheostomy on Trach collar, an attempt was made by Dr Harris and RT to place a trach but the patient did not tolerate it.? Cardiac: Afib on tele? GI/: s/p abdominal surgery, NPO, POC q6hr : Weinstein in place patent/draining,. Skin: Impaired skin integrity- see skin assessment? Infectious:? IV antibiotics, cultures pending. Temp: Afebrile? Lines: ?Peripheral IVs?
[2025-03-12 10:51] LABS: Reflex Lactate? 2 Y
[2025-03-12 11:37] LABS: ~Lactic Acid-LAB USE ONLY 1.1 mmol/L (0.5-2.0)
[2025-03-12 11:38] LABS: Glucose, Whole Blood 115 mg/dL (60-115)
[2025-03-12 13:13] LABS: MANUAL DIFF FLAG NO
[2025-03-12 13:17] LABS: Hematocrit 35.3 % (42.0-52.0); Hemoglobin 11.6 g/dl (14.0-18.0); Imm Gran Abs Auto 0.14 X10*3/uL (0.00-0.03); Imm Gran Pct Auto 1.3 % (0.0-0.4); Lymphocytes Absolute Auto 1.2 X10*3/uL (1.2-4.9); Mean Corpuscular HGB Conc 32.9 g/dl (31.0-36.0); Mean Corpuscular Hemoglobin 30.4 pg (27.0-33.0); Mean Corpuscular Volume 92.4 fL (80.0-98.0); NRBC Abs Auto 0.000 X10*3/uL (0.0-0.012); NRBC Pct Auto 0.0 /100WBC (0.0-0.2); Platelet Count 207 X10*3/uL (160-400); Red Blood Count 3.82 X10*6/uL (4.60-5.80); White Blood Count 10.9 X10*3/uL (4.8-10.8)
[2025-03-12 13:28] LABS: Alanine Aminotransferase 13 U/L (0-40); Albumin Level 3.9 g/dL (3.5-5.0); Alkaline Phosphatase 134 U/L (39-117); Amylase 78 U/L (28-100); Anion Gap 17 (12-20); Aspartate Amino Transferase 41 U/L (5-37); Blood Urea Nitrogen 29 mg/dL (9-16); Calcium 9.3 mg/dL (8.4-10.2); Carbon Dioxide 21 mmol/L (22-29); Chloride 121 mmol/L (96-108); Creatinine Clr Calc Pharmacy 51.8; Estimated Glomerular Filt Rate > 60; Lipase 64 U/L (8-78); Potassium 3.4 mmol/L (3.3-5.1); Sodium 156 mmol/L (135-145); Total Protein 6.6 g/dL (6.5-8.0)
[2025-03-12 13:30] LABS: Venous Blood Gas Refer to POC result
[2025-03-12 13:30] LABS: VBG HCO3 21 mmol/L (22-26); VBG O2 % Saturation 83.0 %
[2025-03-12] MEDS: KCl 20 mEq in 5 % Dextrose 20 MEQ/1,000 ML IV.SOLN 150 MEQ IVCONT ×2 (14:31→21:28)
--- NOTE | 2025-03-12 15:09 | MHC.CM.PN ---
Pt continues care in ICU: No plans to transfer to the medical floor today: ? C.diff. Pt has been referred to ARF and SNF. Will await medical stability for formal evaluations.
[2025-03-12 18:40] LABS: Glucose, Whole Blood 126 mg/dL (60-115)
[2025-03-12 19:18] LABS: MANUAL DIFF FLAG NO
[2025-03-12 19:26] LABS: Hematocrit 31.0 % (42.0-52.0); Hemoglobin 10.0 g/dl (14.0-18.0); Imm Gran Abs Auto 0.15 X10*3/uL (0.00-0.03); Imm Gran Pct Auto 1.6 % (0.0-0.4); Lymphocytes Absolute Auto 1.0 X10*3/uL (1.2-4.9); Mean Corpuscular HGB Conc 32.3 g/dl (31.0-36.0); Mean Corpuscular Hemoglobin 30.2 pg (27.0-33.0); Mean Corpuscular Volume 93.7 fL (80.0-98.0); NRBC Abs Auto 0.000 X10*3/uL (0.0-0.012); NRBC Pct Auto 0.0 /100WBC (0.0-0.2); Platelet Count 153 X10*3/uL (160-400); Red Blood Count 3.31 X10*6/uL (4.60-5.80); White Blood Count 9.2 X10*3/uL (4.8-10.8)
[2025-03-12 19:52] LABS: Albumin Level 3.2 g/dL (3.5-5.0); Anion Gap 14 (12-20); Blood Urea Nitrogen 24 mg/dL (9-16); Carbon Dioxide 24 mmol/L (22-29); Chloride 122 mmol/L (96-108); Creatinine Clr Calc Pharmacy 52.7; Estimated Glomerular Filt Rate > 60; Magnesium 2.0 mg/dL (1.6-2.6); Potassium 3.6 mmol/L (3.3-5.1); Sodium 156 mmol/L (135-145)
[2025-03-12 19:57] LABS: Calcium 8.1 mg/dL (8.4-10.2)
--- NOTE | 2025-03-12 20:06 | PC.RT ---
trach collar himidification titrated to 95% FIO2. Spo2 remains >92%
[2025-03-12] MEDS: Albumin Human 25 % 100 ML IV (20:08)
[2025-03-13] VITALS (21 sets, daily range): BP systolic 91–127; BP diastolic 47–89; PULSE 54–101; RESP 16–32; TEMP 36.3–37; O2SAT 94–100; BMI 18.2
[2025-03-13 00:01] LABS: Glucose, Whole Blood 106 mg/dL (60-115)
[2025-03-13] MEDS: Albumin Human 25 % 100 ML IV (01:32)
[2025-03-13] MEDS: KCl 20 mEq in 5 % Dextrose 20 MEQ/1,000 ML IV.SOLN 150 MEQ IVCONT ×3 (03:50→17:07)
[2025-03-13 05:15] LABS: VBG HCO3 22 mmol/L (22-26); VBG O2 % Saturation 94.0 %
[2025-03-13 05:51] LABS: MANUAL DIFF FLAG NO
[2025-03-13 05:59] LABS: Hematocrit 28.8 % (42.0-52.0); Hemoglobin 9.3 g/dl (14.0-18.0); Imm Gran Abs Auto 0.09 X10*3/uL (0.00-0.03); Imm Gran Pct Auto 1.3 % (0.0-0.4); Lymphocytes Absolute Auto 0.8 X10*3/uL (1.2-4.9); Mean Corpuscular HGB Conc 32.3 g/dl (31.0-36.0); Mean Corpuscular Hemoglobin 30.4 pg (27.0-33.0); Mean Corpuscular Volume 94.1 fL (80.0-98.0); NRBC Abs Auto 0.000 X10*3/uL (0.0-0.012); NRBC Pct Auto 0.0 /100WBC (0.0-0.2); Platelet Count 133 X10*3/uL (160-400); Red Blood Count 3.06 X10*6/uL (4.60-5.80); White Blood Count 6.7 X10*3/uL (4.8-10.8)
[2025-03-13 06:17] LABS: Glucose, Whole Blood 103 mg/dL (60-115)
[2025-03-13 06:28] LABS: Alanine Aminotransferase 12 U/L (0-40); Albumin Level 3.6 g/dL (3.5-5.0); Alkaline Phosphatase 102 U/L (39-117); Anion Gap 14 (12-20); Aspartate Amino Transferase 30 U/L (5-37); Blood Urea Nitrogen 18 mg/dL (9-16); Blood Urea Nitrogen 19 mg/dL (9-16); Calcium 8.0 mg/dL (8.4-10.2); Calcium 8.1 mg/dL (8.4-10.2); Carbon Dioxide 20 mmol/L (22-29); Carbon Dioxide 21 mmol/L (22-29); Chloride 121 mmol/L (96-108); Creatinine Clr Calc Pharmacy 56.7; Creatinine Clr Calc Pharmacy 57.3; Estimated Glomerular Filt Rate > 60; Magnesium 2.0 mg/dL (1.6-2.6); Magnesium 2.1 mg/dL (1.6-2.6); Potassium 3.2 mmol/L (3.3-5.1); Potassium 3.4 mmol/L (3.3-5.1); Sodium 152 mmol/L (135-145); Sodium 153 mmol/L (135-145); Total Protein 5.6 g/dL (6.5-8.0)
--- NOTE | 2025-03-13 07:00 | CA_ITS ---
Transthoracic Echocardiogram Patient (Last, First, Middle): Sanket Little R Gender: Male Date of : 1950 Age: 75 Procedure Date: 03/13/2025 Procedure Type: Transthoracic Echocardiogram Location: ICU Height: 187.96 cm Weight: 63.96 kg BSA: 1.87 m2 Heart Rate: 51 bpm BP: 107 / 48 mmHg Supervisor Cd Area: SB Referring MD: Oli Meredith MD Symptoms: severe cardiomegaly Study Quality: Fair w contrast ECG Rhythm: Bradycardia Conclusions: - Normal left ventricular cavity size. There is mildly increased left ventricular wall thickness. The left ventricular systolic function is mildly decreased. The visually estimated ejection fraction is between 40-45%. - The apical inferior segment is akinetic. - Mildly increased right ventricular cavity size. There is normal right ventricular systolic function. - The left atrium is severely dilated. The right atrium is severely dilated. - Significantly elevated right atrial pressure. Mild pulmonary hypertension is present. Findings Procedure Information Contrast agent, definity, is being given per protocol without apparent complications. Left Ventricle Normal left ventricular cavity size. There is mildly increased left ventricular wall thickness. The left ventricular systolic function is mildly decreased. The visually estimated ejection fraction is between 40-45%. There is evidence of regional wall motion abnormalities. Diastolic function is indeterminate on the basis of available data. Wall Motion Rest Echo Findings The apical inferior segment is akinetic. Right Ventricle Mildly increased right ventricular cavity size. There is normal right ventricular systolic function. There is a pacemaker wire seen in the right ventricle. Atria The left atrium is severely dilated. The right atrium is severely dilated. Aortic Valve There is a normal trileaflet aortic valve. There is no aortic valve stenosis. There is no aortic valve regurgitation. Mitral Valve The mitral valve appears normal. There is moderate mitral valve regurgitation. There is no mitral valve stenosis. Pulmonic Valve The pulmonic valve is likely normal. There is trace pulmonic valve regurgitation. Tricuspid Valve There is severe tricuspid valve regurgitation. The right ventricular systolic pressure is 36 mmHg. Significantly elevated right atrial pressure. Mild pulmonary hypertension is present. Apical tethering of the tricuspid valve leaflets. Great Vessels All visible segments of the aorta are normal in size. The visualized portions of the pulmonary artery and branches are normal. Venous The inferior vena cava is severely dilated and does not collapse with inspiration. Pericardium/Pleural There is no evidence of pericardial effusion. Prior Study Comparison No prior study available for comparison. Measurements 2D Linear Measurements IVSd: 1.06 0.6-0.9/0.6-1.0 cm LVIDd: 5.65 3.9-5.3/4.2-5.9 cm LVIDd Index: 3.02 2.4-3.2/2.2-3.1 cm/m2 LVIDs: 4.23 2.0-3.6 cm LVPWd: 1.14 0.7-1.1 cm LA Diam: 7.50 2.7-3.8/3.0-4.0 cm LAIDs Index: 4.01 1.5-2.3 cm/m2 LV Mass: 315.51 67-162/88-224 g LV Mass Index: 168.72 43-95/49-115 g/m2 LVOT Diam: 2.60 3.0+(-)1.3 cm 2D Systolic Function EF 4C: 32.60 >55% Mitral Valve MV Pk E: 1.13 E'Lateral: 16.40 E'Medial: 9.07 E/E' Med: 12.50 E/E' Lat: 6.90 Aortic Valve AoV Pk Agus: 1.14 AoV Pk Grad: 5.00 RIVERA: 3.37 LVOT LVOT Pk Agus: 0.72 LVOT Mn Agus: 0.63 LVOT VTI: 0.17 LVOT Pk Grad: 2.00 LVOT Mn Grad: 2.00 LVOT Diam: 2.60 LVOT Area: 5.31 Diastolic Function MV Pk E: 1.13 E'Medial: 9.07 E/E' Med: 12.50 E' Laterial: 16.40 E/E' Lat: 6.90 Right Ventricle TAPSE (mm): 22.00 TVS' Agus: 11.70 Tricuspid Valve TR Pk Agus: 2.29 TR Pk Grad: 21.00 RA Press: 15.00 RVSP: 36.00 Great Vessels Aorta Sinus of Valsalva: 3.60 2.0-3.5 cm Ao Asc: 4.20 2.1-3.4 cm Pulmonary Valve PV Pk Agus: 0.85 Peak PV Grad: 3.00 Updated in Other Vendor System with Status of Final Morris Juarez MD electronically signed on 03/13/2025 2:34:27 PM with status of Final
--- NOTE | 2025-03-13 07:02 | PC.NURSE ---
Assumed care of this patient at 19:00. Pt seen in the ICU.? A&Ox2 to self and place.? Remains afib on tele with some PVCs and occasional v-pacing spikes. VSS. Evening labs ordered by CUSTOMER ACCOUNTS ADVISOR back showing low albumin; repleted with 2 bags per CUSTOMER ACCOUNTS ADVISOR. Pt continues on trach mask over stoma site. Tachypneic while awake and restless/anxious, pulling at tele, spo2, howell catheter, and IVs. Sitter not covered at 19:00 due to staffing constraints. Patient required constant redirecting and reassurance. Discussed with covering provider Minnie Chery. The patient medicated with IVP versed x2 with +effect, lasted about one hour. Sitter obtained and at bedside at 23:00 to assist with patient safety, redirecting? and reassurance.? Pt remains strict NPO with po care provided. Continues on D5W+20KCl per NOV. No BM this shift for this sheet writer.? F/C remains in place for retention. Catheter care provided. Medicated for pain per NOV. Bed alarm on, safety measures in place including in-room camera.? Please see shift assessments, worklist, and MAR for full details.?
[2025-03-13] MEDS: 0.9 % Sodium Chloride Flush 10 ML SYRINGE IVFLUSH ×2 (07:28→20:29)
--- NOTE | 2025-03-13 07:43 | PM.PNGS ---
Subjective Subjective Date of Service: 03/13/25 <Poncho Montgomery MD - Last Filed: 03/13/25 07:46> 03/13/25 <Haroldo Langston PA-C - Last Filed: 03/13/25 08:12> Interval history: Transferred to ICU yesterday because tachypnea This apparently is secondary to severe anxiety <Poncho Montgomery MD - Last Filed: 03/13/25 07:46> Transferred to ICU yesterday because tachypnea This apparently is secondary to severe anxiety patient able to communicate that the is not doing good . He was unable to elaborate, did not want to use transducer to communicate. Became very anxious and reaching for things to grab, appears confused. <Haroldo Langston PA-C - Last Filed: 03/13/25 08:12> Physical Exam Vital Signs: Vital Signs: Last Vital Signs Temp 98.6 F 03/13/25 04:00 Pulse 72 03/13/25 07:00 Resp 25 H 03/13/25 07:00 BP 125/89 03/13/25 07:00 Pulse Ox 94 03/13/25 07:00 O2 Del Method Trach Collar 03/13/25 07:00 O2 Flow Rate 2 03/12/25 18:54 FiO2 80 03/13/25 07:00 BMI result Body Mass Index 18.2 <Poncho Montgomery MD - Last Filed: 03/13/25 07:46> Const: Other: Appears extremely anxious <Poncho Montgomery MD - Last Filed: 03/13/25 07:46> General: anxious and confusion <Haroldo Langston PA-C - Last Filed: 03/13/25 08:12> Orientation/consciousness: confusion <Haroldo Langston PA-C - Last Filed: 03/13/25 08:12> Resp: Other: Tachypneic <Poncho Montgomery MD - Last Filed: 03/13/25 07:46> Cardio: Rate: regular rate <Poncho Montgomery MD - Last Filed: 03/13/25 07:46> GI: Other: Right Inguinal hernia repair site intact <Poncho Montgomery MD - Last Filed: 03/13/25 07:46> Palpation (GI): Soft to palpation, not firm and nontender <Poncho Montgomery MD - Last Filed: 03/13/25 07:46> Neuro: General: confusion <Haroldo Langston PA-C - Last Filed: 03/13/25 08:12> Objective Data Active Medications Albuterol/Ipratropium (Albuterol/Iprat 2.5/0.5mg 3 Ml Ampul.Neb) 3 ml INHALE RQ4H WHILE AWAKE PRN PRN Reason: Shortness of Breath Enoxaparin Sodium (Enoxaparin Sodium 40 Mg/0.4 Ml Syringe) 40 mg SUBCUT Q24H [facility] Last Admin: 03/12/25 16:06 Dose: 40 mg Documented By: OSKAR Hydromorphone HCl (Hydromorphone Hcl 1 Mg/Ml Syringe) 1 mg IVPUSH Q4H PRN; Protocol PRN Reason: Breakthrough Pain Last Admin: 03/13/25 04:18 Dose: 1 mg Documented By: JERMAN Ampicillin Sodium/Sulbactam (Sodium 3 gm/ Sodium Chloride) 100 mls @ 200 mls/hr IV Q6H [facility] Last Infusion: 03/13/25 04:21 Dose: Infused Documented By: JERMAN Potassium Chloride/Dextrose (Kcl 20 Meq In 5 % Dextrose) 20 meq in 1,000 mls @ 150 mls/hr IVCONT .Q6H40M [facility] Last Admin: 03/13/25 03:50 Dose: 150 mls/hr Documented By: JERMAN Ondansetron HCl (Ondansetron Hcl 4 Mg/2 Ml Vial) 4 mg IVPUSH Q6H PRN PRN Reason: Nausea and Vomiting Last Admin: 03/10/25 00:38 Dose: 4 mg Documented By: MYAH Pharmacy Consult (Consult Rx Parenteral Nutrition Ordering) 1 each MISCELLANE DAILY PRN PRN Reason: Consult order Sodium Chloride (0.9 % Sodium Chloride Flush 10 Ml Syringe) 10 ml IVFLUSH QSHIFT [facility] Last Admin: 03/13/25 07:28 Dose: 10 ml Documented By: OSKAR <Poncho Montgomery MD - Last Filed: 03/13/25 07:46> Labs CBC & Chem 7: 03/13/25 04:59 03/13/25 04:59 <Poncho Montgomery MD - Last Filed: 03/13/25 07:46> Labs: Laboratory Results - last 24 hr 03/12/25 03/12/25 03/12/25 08:45 11:06 11:35 MCV 92.4 D MCH 30.4 MCHC 32.9 RDW 17.3 H Plt Count 207 MPV 9.2 L Immature Gran % (Auto) 1.3 H Neut % (Auto) 73.0 Lymph % (Auto) 10.7 L [place] % (Auto) 10.5 Eos % (Auto) 4.2 H Baso % (Auto) 0.3 Lymph # (Auto) 1.2 [place] # (Auto) 1.1 Eos # (Auto) 0.5 H Baso # (Auto) 0.0 Abs Immat Gran (auto) 0.14 H Absolute Neuts (auto) 7.9 Absolute Nucleated RBC 0.000 Nucleated RBC % (auto) 0.0 Hold Purple Top SEE NOTE Hold Blue Top SEE NOTE VBG pH VBG pCO2 VBG pO2 VBG HCO3 VBG O2 Saturation VBG Base Excess Anion Gap 17 Estim Creat Clear Calc 51.8 Estimated GFR > 60 POC Glucose 115 Random Glucose 106 Lactic Acid F/U @ 2Hr 2.8 H* Lactic Acid F/U @ 4Hr 1.1 Calcium 9.3 Phosphorus Magnesium Total Bilirubin 1.3 H AST 41 H ALT 13 Alkaline Phosphatase 134 H Total Protein 6.6 Albumin 3.9 Amylase 78 Lipase 64 Hold Green Top See Note Hold Yellow Top See Note 03/12/25 03/12/25 03/12/25 13:18 18:31 19:02 MCV 93.7 MCH 30.2 MCHC 32.3 RDW 17.3 H Plt Count 153 L D MPV 9.3 L Immature Gran % (Auto) 1.6 H Neut % (Auto) 71.1 Lymph % (Auto) 11.0 L [place] % (Auto) 11.0 Eos % (Auto) 5.1 H Baso % (Auto) 0.2 Lymph # (Auto) 1.0 L [place] # (Auto) 1.0 Eos # (Auto) 0.5 H Baso # (Auto) 0.0 Abs Immat Gran (auto) 0.15 H Absolute Neuts (auto) 6.6 Absolute Nucleated RBC 0.000 Nucleated RBC % (auto) 0.0 Hold Purple Top Hold Blue Top VBG pH 7.54 H VBG pCO2 25 VBG pO2 52 VBG HCO3 21 L VBG O2 Saturation 83.0 VBG Base Excess 0.5 Anion Gap 14 Estim Creat Clear Calc 52.7 Estimated GFR > 60 POC Glucose 126 H Random Glucose 124 H Lactic Acid F/U @ 2Hr Lactic Acid F/U @ 4Hr Calcium 8.1 L D Phosphorus 3.5 Magnesium 2.0 Total Bilirubin AST ALT Alkaline Phosphatase Total Protein Albumin 3.2 L Amylase Lipase Hold Green Top Hold Yellow Top 03/12/25 03/13/25 03/13/25 23:58 04:59 04:59 MCV 94.1 MCH 30.4 MCHC 32.3 RDW 17.5 H Plt Count 133 L MPV 9.3 L Immature Gran % (Auto) 1.3 H Neut % (Auto) 67.8 Lymph % (Auto) 12.4 L [place] % (Auto) 11.5 H Eos % (Auto) 6.7 H Baso % (Auto) 0.3 Lymph # (Auto) 0.8 L [place] # (Auto) 0.8 Eos # (Auto) 0.5 H Baso # (Auto) 0.0 Abs Immat Gran (auto) 0.09 H Absolute Neuts (auto) 4.6 Absolute Nucleated RBC 0.000 Nucleated RBC % (auto) 0.0 Hold Purple Top Hold Blue Top VBG pH VBG pCO2 VBG pO2 VBG HCO3 VBG O2 Saturation VBG Base Excess Anion Gap 14 14 Estim Creat Clear Calc 57.3 Estimated GFR POC Glucose 106 Random Glucose Lactic Acid F/U @ 2Hr Lactic Acid F/U @ 4Hr Calcium Phosphorus Magnesium Total Bilirubin AST ALT Alkaline Phosphatase Total Protein Albumin Amylase Lipase Hold Green Top Hold Yellow Top 03/13/25 03/13/25 03/13/25 04:59 04:59 04:59 MCV MCH MCHC RDW Plt Count MPV Immature Gran % (Auto) Neut % (Auto) Lymph % (Auto) [place] % (Auto) Eos % (Auto) Baso % (Auto) Lymph # (Auto) [place] # (Auto) Eos # (Auto) Baso # (Auto) Abs Immat Gran (auto) Absolute Neuts (auto) Absolute Nucleated RBC Nucleated RBC % (auto) Hold Purple Top Hold Blue Top VBG pH VBG pCO2 VBG pO2 VBG HCO3 VBG O2 Saturation VBG Base Excess Anion Gap Estim Creat Clear Calc 56.7 Estimated GFR > 60 > 60 POC Glucose Random Glucose 107 100 Lactic Acid F/U @ 2Hr Lactic Acid F/U @ 4Hr Calcium 8.0 L Phosphorus Magnesium Total Bilirubin AST ALT Alkaline Phosphatase Total Protein Albumin Amylase Lipase Hold Green Top Hold Yellow Top 03/13/25 03/13/25 03/13/25 04:59 04:59 04:59 MCV MCH MCHC RDW Plt Count MPV Immature Gran % (Auto) Neut % (Auto) Lymph % (Auto) [place] % (Auto) Eos % (Auto) Baso % (Auto) Lymph # (Auto) [place] # (Auto) Eos # (Auto) Baso # (Auto) Abs Immat Gran (auto) Absolute Neuts (auto) Absolute Nucleated RBC Nucleated RBC % (auto) Hold Purple Top Hold Blue Top VBG pH VBG pCO2 VBG pO2 VBG HCO3 VBG O2 Saturation VBG Base Excess Anion Gap Estim Creat Clear Calc Estimated GFR POC Glucose Random Glucose Lactic Acid F/U @ 2Hr Lactic Acid F/U @ 4Hr Calcium 8.1 L Phosphorus 2.4 L 2.5 L Magnesium 2.0 2.1 Total Bilirubin 0.9 AST 30 ALT 12 Alkaline Phosphatase 102 Total Protein 5.6 L Albumin 3.6 Amylase Lipase Hold Green Top Hold Yellow Top 03/13/25 03/13/25 03/13/25 04:59 05:10 06:14 MCV MCH MCHC RDW Plt Count MPV Immature Gran % (Auto) Neut % (Auto) Lymph % (Auto) [place] % (Auto) Eos % (Auto) Baso % (Auto) Lymph # (Auto) [place] # (Auto) Eos # (Auto) Baso # (Auto) Abs Immat Gran (auto) Absolute Neuts (auto) Absolute Nucleated RBC Nucleated RBC % (auto) Hold Purple Top Hold Blue Top VBG pH 7.53 H VBG pCO2 26 VBG pO2 71 VBG HCO3 22 VBG O2 Saturation 94.0 VBG Base Excess 0.7 Anion Gap Estim Creat Clear Calc Estimated GFR POC Glucose 103 Random Glucose Lactic Acid F/U @ 2Hr Lactic Acid F/U @ 4Hr Calcium Phosphorus Magnesium Total Bilirubin AST ALT Alkaline Phosphatase Total Protein Albumin 3.6 Amylase Lipase Hold Green Top Hold Yellow Top <Poncho Montgomery MD - Last Filed: 03/13/25 07:46> Microbiology Microbiology Results: Microbiology 03/12/25 08:55 Gram Stain - Final Trachea <Poncho Montgomery MD - Last Filed: 03/13/25 07:46> Procedures Date of Service Date of Service: 03/13/25 <Poncho Montgomery MD - Last Filed: 03/13/25 07:46> 03/13/25 <Haroldo Langston PA-C - Last Filed: 03/13/25 08:12> Progress Note: A&P Assessment and plan (1) S/P inguinal hernia repair: Status: Acute <Poncho Montgomery MD - Last Filed: 03/13/25 07:46> Assessment and Plan: Seems to be extremely anxious No reported vomiting or nausea Abdomen is soft and benign Follow up CAT scan done - anastomosis seems patent Would hold off on reinserting NG-tube Okay to have ice chips <Poncho Montgomery MD - Last Filed: 03/13/25 07:46> Assessment and Plan: Patient remains very anxious, was only able to communicate that he was not doing good this morning. He appears to be confused this morning, when i attempted to perform a physical exam the patient began reaching to grab anything around him, unwilling to communicate any more with transducer. Unable to perform abdominal or incision site exam. <Haroldo Langston PA-C - Last Filed: 03/13/25 08:12> Time Spent With Patient Time: Total time managing care of this patient today ____ minutes. <Poncho Montgomery MD - Last Filed: 03/13/25 07:46> Quality Stroke Does the patient have a stroke diagnosis?: No <Poncho Montgomery MD - Last Filed: 03/13/25 07:46> VTE Prior VTE?: No <Poncho Montgomery MD - Last Filed: 03/13/25 07:46> VTE Risk Level:: Medical - moderate - high <Poncho Montgomery MD - Last Filed: 03/13/25 07:46> VTE Device Contraindication: Treatment Not Indicated <Poncho Montgomery MD - Last Filed: 03/13/25 07:46> VTE Drug Contraindication: N/A - Med Ordered <Poncho Montgomery MD - Last Filed: 03/13/25 07:46>
[2025-03-13 09:01] LABS: Venous Blood Gas Refer to POC result
[2025-03-13] MEDS: OLANZapine 10 MG VIAL IM (10:09)
--- NOTE | 2025-03-13 10:14 | MHC.CLN ---
F/U PATIENT TO ICU 03/12 AND PPN DISCONTINUED PER MD. DISCUSSED AT MD ROUNDS TODAY. PLAN FOR NEW PICC LINE. PROVIDE PPN UNTIL PICC PLACED. REVIEWED LABS. COMMUNICATED WITH PHARMACY. REC TODAY START PPN AT 80 ML PER HOUR TO PROVIDE 82 G PROTEIN, 192 G DEXTROSE, 979 KCALS. REPLETE LYTES NEEDED. FOLLOW FOR PPN/TPN ADVANCEMENT.
--- NOTE | 2025-03-13 11:22 | PM.CCPN ---
Subjective Subjective Date of Service: 03/13/25 Interval History: No new events, breathing stable. His saturations, respiratory rate as well as heart rate is completely normal while he is resting, becomes tachypneic when anxious. His issues is secondary to anxiety disorder. General surgery advised for conservative management for possible bowel obstruction Critical Care Time (minutes): 35 Physical Exam Vital Signs: Vital Signs: Last Vital Signs Temp 98.2 F 03/13/25 08:00 Pulse 61 03/13/25 10:00 Resp 22 H 03/13/25 10:00 BP 111/69 03/13/25 10:00 Pulse Ox 98 03/13/25 10:00 O2 Del Method Trach Collar 03/13/25 10:00 O2 Flow Rate 2 03/12/25 18:54 FiO2 80 03/13/25 10:00 BMI result Body Mass Index 18.2 General: Elderly male in mild acute distress, ill appearing and tired appearing Nutritional Appearance: Cachectic, malnourished, underweight Eyes: appearance normal, both eyes and all related structures; Alignment and Position: alignment normal and position normal Neck: No lymphadenopathy, no thyromegaly Resp: bilateral air entry equal, occasional added sounds present Cardio: Regular rate, regular rhythm; Heart sounds: S1 normal heart sound present and S2 normal heart sound present GI: soft, nontender, no guarding, no hepatosplenomegaly : bladder normal to inspection, bladder normal to palpation, no renal angle tenderness Skin: no rashes or lesions noted and elasticity normal Neuro: No focal deficits, dysphasia secondary to surgery Objective Data Labs 03/13/25 04:59 03/13/25 04:59 Labs: Laboratory Results - last 24 hr 03/12/25 03/12/25 03/12/25 08:45 11:06 11:35 WBC 10.9 H RBC 3.82 L Hgb 11.6 L Hct 35.3 L MCV 92.4 D MCH 30.4 MCHC 32.9 RDW 17.3 H Plt Count 207 MPV 9.2 L Immature Gran % (Auto) 1.3 H Neut % (Auto) 73.0 Lymph % (Auto) 10.7 L [place] % (Auto) 10.5 Eos % (Auto) 4.2 H Baso % (Auto) 0.3 Lymph # (Auto) 1.2 [place] # (Auto) 1.1 Eos # (Auto) 0.5 H Baso # (Auto) 0.0 Abs Immat Gran (auto) 0.14 H Absolute Neuts (auto) 7.9 Absolute Nucleated RBC 0.000 Nucleated RBC % (auto) 0.0 VBG pH VBG pCO2 VBG pO2 VBG HCO3 VBG O2 Saturation VBG Base Excess Sodium 156 H Potassium 3.4 Chloride 121 H Carbon Dioxide 21 L Anion Gap 17 BUN 29 H Creatinine 1.14 Estim Creat Clear Calc 51.8 Estimated GFR > 60 POC Glucose 115 Random Glucose 106 Lactic Acid F/U @ 4Hr 1.1 Calcium 9.3 Phosphorus Magnesium Total Bilirubin 1.3 H AST 41 H ALT 13 Alkaline Phosphatase 134 H Total Protein 6.6 Albumin 3.9 Amylase 78 Lipase 64 03/12/25 03/12/25 03/12/25 13:18 18:31 19:02 WBC 9.2 RBC 3.31 L Hgb 10.0 L Hct 31.0 L MCV 93.7 MCH 30.2 MCHC 32.3 RDW 17.3 H Plt Count 153 L D MPV 9.3 L Immature Gran % (Auto) 1.6 H Neut % (Auto) 71.1 Lymph % (Auto) 11.0 L [place] % (Auto) 11.0 Eos % (Auto) 5.1 H Baso % (Auto) 0.2 Lymph # (Auto) 1.0 L [place] # (Auto) 1.0 Eos # (Auto) 0.5 H Baso # (Auto) 0.0 Abs Immat Gran (auto) 0.15 H Absolute Neuts (auto) 6.6 Absolute Nucleated RBC 0.000 Nucleated RBC % (auto) 0.0 VBG pH 7.54 H VBG pCO2 25 VBG pO2 52 VBG HCO3 21 L VBG O2 Saturation 83.0 VBG Base Excess 0.5 Sodium 156 H Potassium 3.6 Chloride 122 H Carbon Dioxide 24 Anion Gap 14 BUN 24 H Creatinine 1.12 Estim Creat Clear Calc 52.7 Estimated GFR > 60 POC Glucose 126 H Random Glucose 124 H Lactic Acid F/U @ 4Hr Calcium 8.1 L D Phosphorus 3.5 Magnesium 2.0 Total Bilirubin AST ALT Alkaline Phosphatase Total Protein Albumin 3.2 L Amylase Lipase 03/12/25 03/13/25 03/13/25 23:58 04:59 04:59 WBC 6.7 RBC 3.06 L Hgb 9.3 L Hct 28.8 L MCV 94.1 MCH 30.4 MCHC 32.3 RDW 17.5 H Plt Count 133 L MPV 9.3 L Immature Gran % (Auto) 1.3 H Neut % (Auto) 67.8 Lymph % (Auto) 12.4 L [place] % (Auto) 11.5 H Eos % (Auto) 6.7 H Baso % (Auto) 0.3 Lymph # (Auto) 0.8 L [place] # (Auto) 0.8 Eos # (Auto) 0.5 H Baso # (Auto) 0.0 Abs Immat Gran (auto) 0.09 H Absolute Neuts (auto) 4.6 Absolute Nucleated RBC 0.000 Nucleated RBC % (auto) 0.0 VBG pH VBG pCO2 VBG pO2 VBG HCO3 VBG O2 Saturation VBG Base Excess Sodium 153 H 152 H Potassium 3.2 L Chloride Carbon Dioxide Anion Gap BUN Creatinine Estim Creat Clear Calc Estimated GFR POC Glucose 106 Random Glucose Lactic Acid F/U @ 4Hr Calcium Phosphorus Magnesium Total Bilirubin AST ALT Alkaline Phosphatase Total Protein Albumin Amylase Lipase 03/13/25 03/13/25 03/13/25 04:59 04:59 04:59 WBC RBC Hgb Hct MCV MCH MCHC RDW Plt Count MPV Immature Gran % (Auto) Neut % (Auto) Lymph % (Auto) [place] % (Auto) Eos % (Auto) Baso % (Auto) Lymph # (Auto) [place] # (Auto) Eos # (Auto) Baso # (Auto) Abs Immat Gran (auto) Absolute Neuts (auto) Absolute Nucleated RBC Nucleated RBC % (auto) VBG pH VBG pCO2 VBG pO2 VBG HCO3 VBG O2 Saturation VBG Base Excess Sodium Potassium 3.4 Chloride 121 H 121 H Carbon Dioxide 21 L 20 L Anion Gap 14 BUN Creatinine Estim Creat Clear Calc Estimated GFR POC Glucose Random Glucose Lactic Acid F/U @ 4Hr Calcium Phosphorus Magnesium Total Bilirubin AST ALT Alkaline Phosphatase Total Protein Albumin Amylase Lipase 03/13/25 03/13/25 03/13/25 04:59 04:59 04:59 WBC RBC Hgb Hct MCV MCH MCHC RDW Plt Count MPV Immature Gran % (Auto) Neut % (Auto) Lymph % (Auto) [place] % (Auto) Eos % (Auto) Baso % (Auto) Lymph # (Auto) [place] # (Auto) Eos # (Auto) Baso # (Auto) Abs Immat Gran (auto) Absolute Neuts (auto) Absolute Nucleated RBC Nucleated RBC % (auto) VBG pH VBG pCO2 VBG pO2 VBG HCO3 VBG O2 Saturation VBG Base Excess Sodium Potassium Chloride Carbon Dioxide Anion Gap 14 BUN 19 H 18 H Creatinine 0.98 0.99 Estim Creat Clear Calc 57.3 Estimated GFR POC Glucose Random Glucose Lactic Acid F/U @ 4Hr Calcium Phosphorus Magnesium Total Bilirubin AST ALT Alkaline Phosphatase Total Protein Albumin Amylase Lipase 03/13/25 03/13/25 03/13/25 04:59 04:59 04:59 WBC RBC Hgb Hct MCV MCH MCHC RDW Plt Count MPV Immature Gran % (Auto) Neut % (Auto) Lymph % (Auto) [place] % (Auto) Eos % (Auto) Baso % (Auto) Lymph # (Auto) [place] # (Auto) Eos # (Auto) Baso # (Auto) Abs Immat Gran (auto) Absolute Neuts (auto) Absolute Nucleated RBC Nucleated RBC % (auto) VBG pH VBG pCO2 VBG pO2 VBG HCO3 VBG O2 Saturation VBG Base Excess Sodium Potassium Chloride Carbon Dioxide Anion Gap BUN Creatinine Estim Creat Clear Calc 56.7 Estimated GFR > 60 > 60 POC Glucose Random Glucose 107 100 Lactic Acid F/U @ 4Hr Calcium 8.0 L Phosphorus Magnesium Total Bilirubin AST ALT Alkaline Phosphatase Total Protein Albumin Amylase Lipase 03/13/25 03/13/25 03/13/25 04:59 04:59 04:59 WBC RBC Hgb Hct MCV MCH MCHC RDW Plt Count MPV Immature Gran % (Auto) Neut % (Auto) Lymph % (Auto) [place] % (Auto) Eos % (Auto) Baso % (Auto) Lymph # (Auto) [place] # (Auto) Eos # (Auto) Baso # (Auto) Abs Immat Gran (auto) Absolute Neuts (auto) Absolute Nucleated RBC Nucleated RBC % (auto) VBG pH VBG pCO2 VBG pO2 VBG HCO3 VBG O2 Saturation VBG Base Excess Sodium Potassium Chloride Carbon Dioxide Anion Gap BUN Creatinine Estim Creat Clear Calc Estimated GFR POC Glucose Random Glucose Lactic Acid F/U @ 4Hr Calcium 8.1 L Phosphorus 2.4 L 2.5 L Magnesium 2.0 2.1 Total Bilirubin 0.9 AST 30 ALT 12 Alkaline Phosphatase 102 Total Protein 5.6 L Albumin 3.6 Amylase Lipase 03/13/25 03/13/25 03/13/25 04:59 05:10 06:14 WBC RBC Hgb Hct MCV MCH MCHC RDW Plt Count MPV Immature Gran % (Auto) Neut % (Auto) Lymph % (Auto) [place] % (Auto) Eos % (Auto) Baso % (Auto) Lymph # (Auto) [place] # (Auto) Eos # (Auto) Baso # (Auto) Abs Immat Gran (auto) Absolute Neuts (auto) Absolute Nucleated RBC Nucleated RBC % (auto) VBG pH 7.53 H VBG pCO2 26 VBG pO2 71 VBG HCO3 22 VBG O2 Saturation 94.0 VBG Base Excess 0.7 Sodium Potassium Chloride Carbon Dioxide Anion Gap BUN Creatinine Estim Creat Clear Calc Estimated GFR POC Glucose 103 Random Glucose Lactic Acid F/U @ 4Hr Calcium Phosphorus Magnesium Total Bilirubin AST ALT Alkaline Phosphatase Total Protein Albumin 3.6 Amylase Lipase Microbiology Microbiology Results: Microbiology 03/12/25 08:45 Blood - Venous Blood Culture - Preliminary No growth after 24 hours. 03/12/25 08:44 Blood - Venous Blood Culture - Preliminary No growth after 24 hours. 03/12/25 08:55 Trachea Gram Stain - Final 03/12/25 08:55 Trachea Sputum Culture - Preliminary No growth to date. 03/01/25 13:21 Blood - Venous Blood Culture - Final No growth after 5 days. 03/01/25 13:21 Blood - Venous Blood Culture - Final No growth after 5 days. 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) Heart failure with preserved ejection fraction (HFpEF): Status: Acute (3) Atherosclerotic cardiovascular disease: Status: Acute (4) Chronic a-fib: Status: Acute (5) S/P small bowel resection: Status: Acute (6) Incarcerated right inguinal hernia: Status: Acute (7) S/P inguinal hernia repair: Status: Acute (8) HAYDER (acute kidney injury): Status: Acute (9) Acute respiratory alkalosis: Status: Acute (10) Acute hypernatremia: Status: Acute Plan Acute on chronic respiratory failure: Status post 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 When he is resting his heart rate, respiratory rate and saturations are normal. Possible acute small-bowel obstruction: CTA abdomen and pelvis showing multiple air-fluid levels with transition point around the previous surgery. Had 3 bowel movements yesterday, abdomen is soft. Surgery recommending conservative management. He had recent surgery for incarcerated right inguinal hernia along with right orchidectomy He is on TPN for nutrition, which has been stopped after he pulled out his PICC line. We will start him on PPN today, requested to placing a PICC line trended and tomorrow and we will switch him to TPN. Anxiety disorder: Has significant anxiety leading to tachypnea, which gets normal when he is asleep. We will add diazepam 2.5 mg IM TID. along with Seroquel to rest. Acute hypernatremia: Secondary to volume depletion of his TPN stopped We will start him on D5 water, should correct after reinitiating PPN Acute hypophosphatemia: Secondary to poor nutrition, should improve with PPN Acute hypokalemia: Should improve with PPN Prophylaxis: Lovenox Quality Stroke Does the patient have a stroke diagnosis?: No VTE Prior VTE?: No VTE Risk Level:: Medical - moderate - high VTE Device Contraindication: Treatment Not Indicated VTE Drug Contraindication: N/A - Med Ordered
--- NOTE | 2025-03-13 11:26 | PC.NURSE ---
Assumed care @ 0700? Neuro:? Alert, restless, anxious, requiring frequent redirection. Zyprexa IMgiven per NOV. Respiratory: Decannulated tracheostomy on Trach collar Cardiac: Afib on tele? GI/: s/p abdominal surgery, NPO, POC q6hr : Weinstein Removed today @ 1000, Due to void at 1800. Skin: Impaired skin integrity- see skin assessment? Infectious:? IV antibiotics Temp: Afebrile? Lines: ?Peripheral IVs? Plan: Transfer to Med-tele or Med surg. No longer requiring ICU-level care.
[2025-03-13 11:37] LABS: Glucose, Whole Blood 112 mg/dL (60-115)
[2025-03-13] MEDS: diazePAM 10 MG/2 ML CARTRIDGE 2.5 MG IM ×2 (14:36→20:59)
--- NOTE | 2025-03-13 14:36 | MHC.CM.PN ---
EMR REVIEWED AND PER ICU ROUNDS, PT WILL HAVE PICC LINE REPLACED AND WILL START PPN THEN TPN. PT MAY POSSIBLY TRANSFER TO MEDICAL FLOOR LATER TODAY. CLINICAL UPDATES SENT TO [facility] AND REQUEST TO CONTINUE FOLLOWING.
--- NOTE | 2025-03-13 15:34 | PM.EVENT ---
Event Note Date of Service: 03/13/25 Event Note: Discussed with ICU attending. Tx to IMC Pulled out picc line with TPN, now on PPN, plan to replace picc line when cx are clear Acute hypoxic respiratory failure Developed overnight on 03/12/2025 Started on IV fluids, developed tachypnea, was anxious. Case discussed with ICU attending and patient was transferred to the ICU Hypernatremia Receiving D5 LR, sodium up to 155, IV fluids changed to D5W .SBO -s/p open repair of right inguinal hernia repair with small bowel resection and right orchiectomy -NG-tube inadvertently removed by patient. No vomiting since removal -TPN started... PPN DC -trial suppository.... Fair results HAYDER,hypoNa,( acute-chronic) -normalized -appreciate renal input -follow renals/divalents Multiple rib fractures - lidocaine patch, MSSR + oxycodone, LLL PNA - was on ceftriaxone and doxycycline; amoxicillin-clavulanate 03/03-03/05, changed to ampicillin-sulbactam 03/05-03/06 while NPO, -Unasyn (2) to cover aspiration; incomplete treatment secondary to intermittent NPO status Enterococcus faecalis UTI -Unasyn as above HFpEF - stable and well compensated at this time CAD/AF - not on anticoagulation presumably due to fall risk Time Spent With Patient Time: Total time managing care of this patient today ____ minutes.
[2025-03-13 15:57] LABS: Anion Gap 10 (12-20); Blood Urea Nitrogen 16 mg/dL (9-16); Calcium 8.1 mg/dL (8.4-10.2); Carbon Dioxide 23 mmol/L (22-29); Chloride 119 mmol/L (96-108); Creatinine Clr Calc Pharmacy 63.8; Estimated Glomerular Filt Rate > 60; Potassium 3.4 mmol/L (3.3-5.1); Sodium 149 mmol/L (135-145)
[2025-03-13 18:01] LABS: Glucose, Whole Blood 107 mg/dL (60-115)
[2025-03-13] MEDS: Parenteral Nutrition 1,920 ML 80 ML IV (21:09)
[2025-03-14] VITALS (7 sets, daily range): BP systolic 103–127; BP diastolic 51–62; PULSE 51–86; RESP 16–22; TEMP 36.2–37.1; O2SAT 94–100
[2025-03-14 01:24] LABS: Glucose, Whole Blood 98 mg/dL (60-115)
[2025-03-14] MEDS: diazePAM 10 MG/2 ML CARTRIDGE 2.5 MG IM (05:35)
--- NOTE | 2025-03-14 06:44 | PM.PNGS ---
Subjective Subjective Date of Service: 03/14/25 <Haroldo Langston PA-C - Last Filed: 03/14/25 08:42> 03/14/25 <Poncho Montgomery MD - Last Filed: 03/14/25 14:59> Interval history: feels better today, was deescalated to the telemetry floor from ICU yesterday. passed small BM, now passing lots of gas. Denies nausea or vomiting <Haroldo Langston PA-C - Last Filed: 03/14/25 08:42> Physical Exam Vital Signs: Vital Signs: Last Vital Signs Temp 98.7 F 03/14/25 04:00 Pulse 76 03/14/25 04:00 Resp 16 03/14/25 04:00 BP 119/58 L 03/14/25 04:00 Pulse Ox 98 03/14/25 04:00 O2 Del Method Room Air, Trach C ollar 03/14/25 04:00 O2 Flow Rate 21 03/13/25 16:42 FiO2 21 03/13/25 14:00 BMI result Body Mass Index 18.2 <Haroldo Langston PA-C - Last Filed: 03/14/25 08:42> Const: General: comfortable and no acute distress <Haroldo Langston PA-C - Last Filed: 03/14/25 08:42> Orientation/consciousness: patient oriented x3 <Haroldo Langston PA-C - Last Filed: 03/14/25 08:42> Resp: Effort & Inspection: normal respiratory effort and able to speak in complete sentences <Haroldo Langston PA-C - Last Filed: 03/14/25 08:42> GI: Other: incision site clean dry and intact. jay remain in place <Haroldo Langston PA-C - Last Filed: 03/14/25 08:42> Inspection: No distended <KHRIS Motley Last Filed: 03/14/25 08:42> Palpation (GI): Soft to palpation, not firm, nontender, no guarding and not rigid <KHRIS Motley Last Filed: 03/14/25 08:42> Neuro: General: patient oriented x3 <KHRIS Motley Last Filed: 03/14/25 08:42> Objective Data Active Medications Albuterol/Ipratropium (Albuterol/Iprat 2.5/0.5mg 3 Ml Ampul.Neb) 3 ml INHALE RQ4H WHILE AWAKE PRN PRN Reason: Shortness of Breath Diazepam (Diazepam 10 Mg/2 Ml Cartridge) 2.5 mg IM Q8H [facility] Last Admin: 03/14/25 05:35 Dose: 2.5 mg Documented By: PRIMITIVO Enoxaparin Sodium (Enoxaparin Sodium 40 Mg/0.4 Ml Syringe) 40 mg SUBCUT Q24H [facility] Last Admin: 03/13/25 15:32 Dose: 40 mg Documented By: JUVEORRZ Hydromorphone HCl (Hydromorphone Hcl 1 Mg/Ml Syringe) 1 mg IVPUSH Q4H PRN; Protocol PRN Reason: Breakthrough Pain Last Admin: 03/14/25 02:23 Dose: 1 mg Documented By: PRIMITIVO Ampicillin Sodium/Sulbactam (Sodium 3 gm/ Sodium Chloride) 100 mls @ 200 mls/hr IV Q6H [facility] Last Infusion: 03/14/25 05:35 Dose: Infused Documented By: PRIMITIVO Potassium Chloride/Dextrose (Kcl 20 Meq In 5 % Dextrose) 20 meq in 1,000 mls @ 150 mls/hr IVCONT .Q6H40M [facility] Last Admin: 03/14/25 05:38 Dose: Not Given Documented By: PRIMITIVO Non-Admin Reason: Physician Held Med Nutrition (Parenteral) (Parenteral Nutrition) 1,920 mls @ 80 mls/hr IV .Q24H [facility]; Protocol Stop: 03/14/25 20:59 Last Admin: 03/13/25 21:09 Dose: 80 mls/hr Documented By: PRIMITIVO Olanzapine (Olanzapine 10 Mg Vial) 10 mg IM DAILY [facility] Last Admin: 03/13/25 10:09 Dose: 10 mg Documented By: JODY Ondansetron HCl (Ondansetron Hcl 4 Mg/2 Ml Vial) 4 mg IVPUSH Q6H PRN PRN Reason: Nausea and Vomiting Last Admin: 03/10/25 00:38 Dose: 4 mg Documented By: MYAH Pharmacy Consult (Consult Rx Parenteral Nutrition Ordering) 1 each MISCELLANE DAILY PRN PRN Reason: Consult order Sodium Chloride (0.9 % Sodium Chloride Flush 10 Ml Syringe) 10 ml IVFLUSH QSHIFT [facility] Last Admin: 03/13/25 20:29 Dose: 10 ml Documented By: PRIMITIVO <Haroldo Langston PA-C - Last Filed: 03/14/25 08:42> Labs CBC & Chem 7: 03/13/25 04:59 03/14/25 06:14 <Haroldo Langston PA-C - Last Filed: 03/14/25 08:42> Labs: Laboratory Results - last 24 hr 03/13/25 03/13/25 03/13/25 11:32 15:41 17:54 Hold Purple Top Anion Gap 10 L Estim Creat Clear Calc 63.8 Estimated GFR > 60 POC Glucose 112 107 Random Glucose 108 Calcium 8.1 L 03/14/25 03/14/25 01:19 06:14 Hold Purple Top SEE NOTE Anion Gap Estim Creat Clear Calc Estimated GFR POC Glucose 98 Random Glucose Calcium <Haroldo Langston PA-C - Last Filed: 03/14/25 08:42> Microbiology Microbiology Results: Microbiology 03/12/25 08:45 Blood Culture - Preliminary Blood - Venous No growth after 24 hours. 03/12/25 08:44 Blood Culture - Preliminary Blood - Venous No growth after 24 hours. 03/12/25 08:55 Gram Stain - Final Trachea Sputum Culture - Preliminary No growth to date. <Haroldo Langston PA-C - Last Filed: 03/14/25 08:42> Procedures Date of Service Date of Service: 03/14/25 <Haroldo Langston PA-C - Last Filed: 03/14/25 08:42> 03/14/25 <Poncho Montgomery MD - Last Filed: 03/14/25 14:59> Progress Note: A&P Assessment and plan (1) S/P inguinal hernia repair: Status: Acute <Haroldo Langston PA-C - Last Filed: 03/14/25 08:42> Assessment and Plan: No new complaints Says he is tolerating liquids Passing flatus, had BMs Abdomen is soft Incision clean Okay to advance diet as tolerated Seen and examined independently <Poncho Montgomery MD - Last Filed: 03/14/25 14:59> (2) S/P small bowel resection: Status: Acute <Haroldo Langston PA-C - Last Filed: 03/14/25 08:42> Assessment and Plan: Patient doing better today. Less anxious, this morning. Able to communicate with transducer and writing. abdomen remains soft and benign. Incision site appears clean and dry. patient is not complaining of pain, nausea or vomiting. Pateint can have clear liquid diet, can advance as tolerated from that. Patient can ambulate with assistance as tolerated. We will continue to follow during this admission. <Haroldo Langston PA-C - Last Filed: 03/14/25 08:42> Time Spent With Patient Time: Total time managing care of this patient today ____ minutes. <Haroldo Langston PA-C - Last Filed: 03/14/25 08:42> Quality Stroke Does the patient have a stroke diagnosis?: No <KHRIS Motley Last Filed: 03/14/25 08:42> VTE Prior VTE?: No <Haroldo Langston PA-C - Last Filed: 03/14/25 08:42> VTE Risk Level:: Medical - moderate - high <Haroldo Langston PA-C - Last Filed: 03/14/25 08:42> VTE Device Contraindication: Treatment Not Indicated <KHRIS Motley Last Filed: 03/14/25 08:42> VTE Drug Contraindication: N/A - Med Ordered <Haroldo Langston PA-C - Last Filed: 03/14/25 08:42>
[2025-03-14 06:46] LABS: Glucose, Whole Blood 91 mg/dL (60-115)
[2025-03-14 07:06] LABS: Albumin Level 3.4 g/dL (3.5-5.0); Anion Gap 12 (12-20); Blood Urea Nitrogen 17 mg/dL (9-16); Calcium 8.3 mg/dL (8.4-10.2); Carbon Dioxide 21 mmol/L (22-29); Chloride 119 mmol/L (96-108); Creatinine Clr Calc Pharmacy 65.3; Estimated Glomerular Filt Rate > 60; Magnesium 1.9 mg/dL (1.6-2.6); Potassium 3.8 mmol/L (3.3-5.1); Sodium 148 mmol/L (135-145)
--- NOTE | 2025-03-14 08:04 | PC.NURSE ---
Addendum entered by Alex Lester RN 03/14/25 16:43: pt refused flexi-seal placement Original Note: informed md 20 KCl D5 fluids not running. per md hold for now. per md do not administer IM zyprexa.
[2025-03-14] MEDS: Potassium Phosphate/NS 15 MMOL/250 ML PLAST..BAG 62.5 MMOL IV (08:48)
--- NOTE | 2025-03-14 10:43 | MHC.CLN ---
F/U DIET ADVANCED TO CLEAR LIQUIDS TODAY. CONTINUE PPN. NO PICC LINE. REVIEWED LABS. COMMUNICATED WITH PHARMACY. REC INCREASE PPN TODAY TO PPN AT 100 ML PER HOUR, ADD 60 G LIPIDS TO PROVIDE 102 G PROTEIN (1.6 G/KG), 240 G DEXTROSE, 1824 TOTAL KCALS (28.4 KCALS/KG). FOLLOW FOR PPN TOLERANCE AND DIET ADVANCEMENT.
--- NOTE | 2025-03-14 11:25 | P.PNIM_ITS ---
Subjective Subjective Date of Service: 03/14/25 Review of Systems Follow up ICU transfer feeling frustrated due to being in the hospital wants to get oob and ambulate Physical Exam 2 Vital Signs: Vital Signs: Last Vital Signs Temp 97.5 F 03/14/25 08:00 Pulse 85 03/14/25 08:00 Resp 22 H 03/14/25 08:00 BP 117/56 L 03/14/25 08:00 Pulse Ox 99 03/14/25 08:00 O2 Del Method Trach Collar 03/14/25 08:00 O2 Flow Rate 5 03/14/25 08:00 FiO2 21 03/13/25 14:00 BMI result Body Mass Index 18.2 Appearing in no acute distress lung sounds are clear to auscultation stoma heart regular rate rhythm, clear S1, S2 positive bowel sounds, abdomen is soft, nontender neuro patient is alert x3, no focal deficits Objective Data Active Medications Albuterol/Ipratropium (Albuterol/Iprat 2.5/0.5mg 3 Ml Ampul.Neb) 3 ml INHALE RQ4H WHILE AWAKE PRN PRN Reason: Shortness of Breath Diazepam (Diazepam 10 Mg/2 Ml Cartridge) 2.5 mg IM Q8H [facility] Last Admin: 03/14/25 05:35 Dose: 2.5 mg Documented By: PRIMITIVO Enoxaparin Sodium (Enoxaparin Sodium 40 Mg/0.4 Ml Syringe) 40 mg SUBCUT Q24H [facility] Last Admin: 03/13/25 15:32 Dose: 40 mg Documented By: OSKAR Hydromorphone HCl (Hydromorphone Hcl 1 Mg/Ml Syringe) 1 mg IVPUSH Q4H PRN; Protocol PRN Reason: Breakthrough Pain Last Admin: 03/14/25 02:23 Dose: 1 mg Documented By: PRIMITIVO Ampicillin Sodium/Sulbactam (Sodium 3 gm/ Sodium Chloride) 100 mls @ 200 mls/hr IV Q6H [facility] Last Infusion: 03/14/25 11:18 Dose: Infused Documented By: MARITZA Potassium Chloride/Dextrose (Kcl 20 Meq In 5 % Dextrose) 20 meq in 1,000 mls @ 150 mls/hr IVCONT .Q6H40M [facility] Last Infusion: 03/14/25 08:04 Dose: Infused Documented By: MARITZA Nutrition (Parenteral) (Parenteral Nutrition) 1,920 mls @ 80 mls/hr IV .Q24H [facility]; Protocol Stop: 03/14/25 20:59 Last Infusion: 03/14/25 08:57 Dose: 0 mls/hr Documented By: MARITZA Potassium Phosphate (Kphos) 15 mmol in 250 mls @ 62.5 mls/hr IV ONCE ONE Stop: 03/14/25 12:07 Last Admin: 03/14/25 08:48 Dose: 62.5 mls/hr Documented By: MARITZA Ondansetron HCl (Ondansetron Hcl 4 Mg/2 Ml Vial) 4 mg IVPUSH Q6H PRN PRN Reason: Nausea and Vomiting Last Admin: 03/10/25 00:38 Dose: 4 mg Documented By: MYAH Pharmacy Consult (Consult Rx Parenteral Nutrition Ordering) 1 each MISCELLANE DAILY PRN PRN Reason: Consult order Sodium Chloride (0.9 % Sodium Chloride Flush 10 Ml Syringe) [facility] Last Admin: 03/14/25 07:26 Dose: Not Given Documented By: MARITZA Non-Admin Reason: Previously Administered Labs 03/13/25 04:59 03/14/25 06:14 Labs: Laboratory Results - last 24 hr 03/13/25 03/13/25 03/13/25 11:32 15:41 17:54 Hold Purple Top Anion Gap 10 L Estim Creat Clear Calc 63.8 Estimated GFR > 60 POC Glucose 112 107 Random Glucose 108 Calcium 8.1 L Phosphorus Magnesium Albumin 03/14/25 03/14/25 03/14/25 01:19 06:14 06:42 Hold Purple Top SEE NOTE Anion Gap 12 Estim Creat Clear Calc 65.3 Estimated GFR > 60 POC Glucose 98 91 Random Glucose 92 Calcium 8.3 L Phosphorus 2.3 L Magnesium 1.9 Albumin 3.4 L Microbiology Microbiology Results: Microbiology 03/12/25 08:45 Blood Culture - Preliminary Blood - Venous No growth after 48 hours. 03/12/25 08:44 Blood Culture - Preliminary Blood - Venous No growth after 48 hours. 03/12/25 08:55 Gram Stain - Final Trachea Sputum Culture - Final No growth. Assessment and Plan (1) Hyponatremia: Status: Acute Plan 75-year-old man initially admitted on 03/01/2025 for hyponatremia, falls, failure to thrive, UTI. Patient is status post hernia repair and orchiectomy. Developed follow up obstruction and ileus. Had NG tube placed and TPN started. Unfortunately patient pulled out his PICC line and PPN was started. Now on med [facility], transferred out of the ICU yesterday. SBO. Resolved s/p open repair of right inguinal hernia repair with small bowel resection and right orchiectomy 03/05/25 NG-tube inadvertently removed by patient. No vomiting since removal Repeat abdominal CT on 03/12/2025 showing multiple dilated loops of small bowel, not much changed from previous, seen by General surgery who thought that the anastomosis was patent and hernia repair intact General surgery> doing better today may start clear liquid diet and advance as tolerated my ambulate TPN started, pulled put picc line 03/12 and PPN started now started on clear liquid diet as per surgical team We will hold off on PICC line and continue PPN for now Hypernatremia sodium up to 155 on D5 LRm now 148 monitor Acute hypoxic respiratory failure Developed overnight on 03/12/2025 No obvious respiratory infection, possibly secondary to anxiety IV fluids developed tachypnea, was anxious. Echocardiogram with EF of 40-45% with apical inferior akinesis, left atrium severely dilated, right atrium severely dilated and mild pulmonary hypertension Case discussed with ICU attending and patient was transferred to the ICU [facility]. Resolved Likely secondary to dehydration, poor p.o. intake normalized appreciate renal input follow renals/divalents Multiple rib fractures lidocaine patch MSSR + oxycodone as needed LLL PNA. Treated s/p ceftriaxone and doxycycline; amoxicillin-clavulanate 03/03-03/05 s/p Unasyn to cover for aspiration Enterococcus faecalis UTI. Treated s/p Unasyn Hypophosphatemia. Secondary to poor nutrition Continue PPN K-Phos added HFpEF stable and well compensated at this time CAD/AF not on anticoagulation presumably due to fall risk Trach Has a wide stoma that can not be cannulated Uses electronic voice box DVT prophylaxis Full code Disposition. Physical therapy consultation>rec acute rehab, out of bed to chair Quality Stroke Does the patient have a stroke diagnosis?: No VTE Prior VTE?: No VTE Risk Level:: Medical - moderate - high VTE Device Contraindication: Treatment Not Indicated VTE Drug Contraindication: N/A - Med Ordered
--- NOTE | 2025-03-14 11:32 | PM.EVENT ---
Event Note Date of Service: 03/03/25 Event Note: Patient was seen day of anticipated discharge, was not discharged due to his right inguinal hernia popped out and needed to be reduced. Time Spent With Patient Time: Total time managing care of this patient today ____ minutes.
[2025-03-14 12:36] LABS: Glucose, Whole Blood 104 mg/dL (60-115)
[2025-03-14 16:13] LABS: CDiff Gene PCR NEGATIVE (Negative)
[2025-03-14 18:16] LABS: Glucose, Whole Blood 109 mg/dL (60-115)
[2025-03-14] MEDS: Parenteral Nutrition 2,400 ML 100 ML IV (20:08)
[2025-03-14] MEDS: 0.9 % Sodium Chloride Flush 10 ML SYRINGE IVFLUSH (20:18)
[2025-03-15 00:09] LABS: Glucose, Whole Blood 103 mg/dL (60-115)
[2025-03-15 03:29] VITALS: BP 124/58; PULSE 97; RESP 16; TEMP 36.8; O2SAT 98
[2025-03-15 06:23] LABS: Glucose, Whole Blood 110 mg/dL (60-115)
[2025-03-15 06:50] LABS: Albumin Level 3.5 g/dL (3.5-5.0); Anion Gap 12 (12-20); Blood Urea Nitrogen 20 mg/dL (9-16); Calcium 8.8 mg/dL (8.4-10.2); Carbon Dioxide 18 mmol/L (22-29); Chloride 118 mmol/L (96-108); Creatinine Clr Calc Pharmacy 67.6; Estimated Glomerular Filt Rate > 60; Magnesium 2.2 mg/dL (1.6-2.6); Potassium 4.2 mmol/L (3.3-5.1); Sodium 144 mmol/L (135-145)
[2025-03-15 07:09] VITALS: BP 117/59; PULSE 80; RESP 16; TEMP 36.6; O2SAT 97
--- NOTE | 2025-03-15 08:34 | P.PNGS_ITS ---
Subjective Subjective Date of Service: 03/15/25 Interval history: Feels well Tolerating oral intake Denies pain Physical Exam 2 Vital Signs: Vital Signs: Last Vital Signs Temp 97.9 F 03/15/25 07:09 Pulse 80 03/15/25 07:09 Resp 16 03/15/25 07:09 BP 117/59 L 03/15/25 07:09 Pulse Ox 97 03/15/25 07:09 O2 Del Method Room Air 03/15/25 07:09 O2 Flow Rate 5 03/14/25 15:40 FiO2 21 03/13/25 14:00 BMI result Body Mass Index 18.2 Const: General: comfortable and no acute distress Resp: Other: With tracheostomy Effort & Inspection: normal respiratory effort GI: Other: Incision clean dry, repair intact Palpation (GI): Soft to palpation, not firm, nontender and no guarding Objective Data Active Medications Albuterol/Ipratropium (Albuterol/Iprat 2.5/0.5mg 3 Ml Ampul.Neb) 3 ml INHALE RQ4H WHILE AWAKE PRN PRN Reason: Shortness of Breath Enoxaparin Sodium (Enoxaparin Sodium 40 Mg/0.4 Ml Syringe) 40 mg SUBCUT Q24H [facility] Last Admin: 03/14/25 14:10 Dose: 40 mg Documented By: MARITZA Hydromorphone HCl (Hydromorphone Hcl 1 Mg/Ml Syringe) 1 mg IVPUSH Q4H PRN; Protocol PRN Reason: Breakthrough Pain Last Admin: 03/15/25 00:36 Dose: 1 mg Documented By: PRIMITIVO Nutrition (Parenteral) (Parenteral Nutrition) 2,400 mls @ 100 mls/hr IV .Q24H [facility]; Protocol Stop: 03/15/25 20:59 Last Admin: 03/14/25 20:08 Dose: 100 mls/hr Documented By: PRIMITIVO Ondansetron HCl (Ondansetron Hcl 4 Mg/2 Ml Vial) 4 mg IVPUSH Q6H PRN PRN Reason: Nausea and Vomiting Last Admin: 03/10/25 00:38 Dose: 4 mg Documented By: MYAH Pharmacy Consult (Consult Rx Parenteral Nutrition Ordering) 1 each MISCELLANE DAILY PRN PRN Reason: Consult order Sodium Chloride (0.9 % Sodium Chloride Flush 10 Ml Syringe) 10 ml IVFLUSH QSHIFT [facility] Last Admin: 03/14/25 20:18 Dose: 10 ml Documented By: PRIMITIVO Labs 03/13/25 04:59 03/15/25 06:05 Labs: Laboratory Results - last 24 hr 03/14/25 03/14/25 03/14/25 12:00 12:30 18:12 Anion Gap Estim Creat Clear Calc Estimated GFR POC Glucose 104 109 Random Glucose Calcium Phosphorus Magnesium Albumin C. difficile Tox B Gene NEGATIVE 03/14/25 03/15/25 03/15/25 23:59 06:05 06:19 Anion Gap 12 Estim Creat Clear Calc 67.6 Estimated GFR > 60 POC Glucose 103 110 Random Glucose 113 Calcium 8.8 D Phosphorus 2.9 Magnesium 2.2 Albumin 3.5 C. difficile Tox B Gene Microbiology Microbiology Results: Microbiology 03/12/25 08:45 Blood Culture - Preliminary Blood - Venous No growth after 48 hours. 03/12/25 08:44 Blood Culture - Preliminary Blood - Venous No growth after 48 hours. 03/12/25 08:55 Gram Stain - Final Trachea Sputum Culture - Final No growth. Procedures Date of Service Date of Service: 03/15/25 Progress Note: A&P Assessment and plan (1) Recurrent inguinal hernia: Status: Acute Assessment and Plan: Status post repair with mesh Abdomen soft and benign Diet as tolerated Out of bed Okay to be discharged from surgical standpoint Plan to remove jay prior to discharge Time Spent With Patient Time: Total time managing care of this patient today ____ minutes. Quality Stroke Does the patient have a stroke diagnosis?: No VTE Prior VTE?: No VTE Risk Level:: Medical - moderate - high VTE Device Contraindication: Treatment Not Indicated VTE Drug Contraindication: N/A - Med Ordered
--- NOTE | 2025-03-15 08:51 | HO.PM.IMPN ---
Subjective Subjective Date of Service: 03/15/25 Review of Systems Follow up ICU transfer feeling frustrated due to being in the hospital has been oob to chair and ambulating Physical Exam Vital Signs: Vital Signs: Last Vital Signs Temp 97.9 F 03/15/25 07:09 Pulse 80 03/15/25 07:09 Resp 16 03/15/25 07:09 BP 117/59 L 03/15/25 07:09 Pulse Ox 97 03/15/25 07:09 O2 Del Method Room Air 03/15/25 07:09 O2 Flow Rate 5 03/14/25 15:40 FiO2 21 03/13/25 14:00 BMI result Body Mass Index 18.2 Appearing in no acute distress lung sounds are clear to auscultation Stoma heart regular rate rhythm, clear S1, S2 positive bowel sounds, abdomen is soft, nontender neuro patient is alert x3, no focal deficits Objective Data Active Medications Albuterol/Ipratropium (Albuterol/Iprat 2.5/0.5mg 3 Ml Ampul.Neb) 3 ml INHALE RQ4H WHILE AWAKE PRN PRN Reason: Shortness of Breath Enoxaparin Sodium (Enoxaparin Sodium 40 Mg/0.4 Ml Syringe) 40 mg SUBCUT Q24H [facility] Last Admin: 03/14/25 14:10 Dose: 40 mg Documented By: MARITZA Hydromorphone HCl (Hydromorphone Hcl 1 Mg/Ml Syringe) 1 mg IVPUSH Q4H PRN; Protocol PRN Reason: Breakthrough Pain Last Admin: 03/15/25 00:36 Dose: 1 mg Documented By: PRIMITIVO Nutrition (Parenteral) (Parenteral Nutrition) 2,400 mls @ 100 mls/hr IV .Q24H [facility]; Protocol Stop: 03/15/25 20:59 Last Admin: 03/14/25 20:08 Dose: 100 mls/hr Documented By: PRIMITIVO Ondansetron HCl (Ondansetron Hcl 4 Mg/2 Ml Vial) 4 mg IVPUSH Q6H PRN PRN Reason: Nausea and Vomiting Last Admin: 03/10/25 00:38 Dose: 4 mg Documented By: MYAH Pharmacy Consult (Consult Rx Parenteral Nutrition Ordering) 1 each MISCELLANE DAILY PRN PRN Reason: Consult order Sodium Chloride (0.9 % Sodium Chloride Flush 10 Ml Syringe) 10 ml IVFLUSH QSHIFT [facility] Last Admin: 03/14/25 20:18 Dose: 10 ml Documented By: PRIMITIVO Labs 03/13/25 04:59 03/15/25 06:05 Labs: Laboratory Results - last 24 hr 03/14/25 03/14/25 03/14/25 12:00 12:30 18:12 Anion Gap Estim Creat Clear Calc Estimated GFR POC Glucose 104 109 Random Glucose Calcium Phosphorus Magnesium Albumin C. difficile Tox B Gene NEGATIVE 03/14/25 03/15/25 03/15/25 23:59 06:05 06:19 Anion Gap 12 Estim Creat Clear Calc 67.6 Estimated GFR > 60 POC Glucose 103 110 Random Glucose 113 Calcium 8.8 D Phosphorus 2.9 Magnesium 2.2 Albumin 3.5 C. difficile Tox B Gene Microbiology Microbiology Results: Microbiology 03/12/25 08:45 Blood Culture - Preliminary Blood - Venous No growth after 48 hours. 03/12/25 08:44 Blood Culture - Preliminary Blood - Venous No growth after 48 hours. 03/12/25 08:55 Gram Stain - Final Trachea Sputum Culture - Final No growth. Assessment and Plan (1) Hyponatremia: Status: Acute Plan 75-year-old man initially admitted on 03/01/2025 for hyponatremia, falls, failure to thrive, UTI. Patient is status post hernia repair and orchiectomy. Developed follow up obstruction and ileus. Had NG tube placed and TPN started. Unfortunately patient pulled out his PICC line and PPN was started. Now on med [facility], transferred out of the ICU yesterday. SBO. Resolved s/p open repair of right inguinal hernia repair with small bowel resection and right orchiectomy 03/05/25 NG-tube inadvertently removed by patient. No vomiting since removal Repeat abdominal CT on 03/12/2025 showing multiple dilated loops of small bowel, not much changed from previous, seen by General surgery who thought that the anastomosis was patent and hernia repair intact General surgery> doing better today may advance diet Advance diet to reg, bland TPN started, pulled put picc line 03/12 and PPN started now started on clear liquid diet as per surgical team We will hold off on PICC line and continue PPN for now Hypernatremia. Resolved sodium up to 155, now 144 IV fluids stopped monitor Acute hypoxic respiratory failure. Resolved Developed overnight on 03/12/2025 No obvious respiratory infection, possibly secondary to anxiety IV fluids developed tachypnea, was anxious. Echocardiogram with EF of 40-45% with apical inferior akinesis, left atrium severely dilated, right atrium severely dilated and mild pulmonary hypertension Case discussed with ICU attending and patient was transferred to the ICU then [facility]. Resolved Likely secondary to dehydration, poor p.o. intake normalized appreciate renal input follow renals/divalents Multiple rib fractures lidocaine patch MSSR + oxycodone as needed LLL PNA. Treated s/p ceftriaxone and doxycycline; amoxicillin-clavulanate 03/03-03/05 s/p Unasyn to cover for aspiration Enterococcus faecalis UTI. Treated s/p Unasyn Hypophosphatemia. Secondary to poor nutrition Continue PPN K-Phos added HFpEF stable and well compensated at this time CAD/AF not on anticoagulation presumably due to fall risk Trach Has a wide stoma that can not be cannulated Uses electronic voice box DVT prophylaxis Full code Disposition. Physical therapy consultation>rec acute rehab, out of bed to chair and ambulating in hallway Quality Stroke Does the patient have a stroke diagnosis?: No VTE Prior VTE?: No VTE Risk Level:: Medical - moderate - high VTE Device Contraindication: Treatment Not Indicated VTE Drug Contraindication: N/A - Med Ordered
--- NOTE | 2025-03-15 10:42 | MHC.CM.PN ---
Per ROUNDS discussion, Patient is not yet medically cleared for dc; PT is recommending STR and Patient has a snf bed offer but he wants to go home. VNA referrals have been made and CM will continue to follow.
--- NOTE | 2025-03-15 11:27 | MHC.CLN ---
F/U DIET ADVANCED TO REGULAR BLAND TODAY. CONTINUE PPN. NO PICC LINE. REVIEWED LABS. COMMUNICATED WITH PHARMACY. REC CONTINUE PPN AT 100 ML PER HOUR, ADD 60 G LIPIDS TO PROVIDE 102 G PROTEIN (1.6 G/KG), 240 G DEXTROSE, 1824 TOTAL KCALS (28.4 KCALS/KG). FOLLOW FOR PPN TOLERANCE, DIET TOLERANCE AND PO INTAKE.
[2025-03-15 11:29] VITALS: BP 111/54; PULSE 53; RESP 16; TEMP 36.4; O2SAT 99
[2025-03-15 12:17] LABS: Glucose, Whole Blood 109 mg/dL (60-115)
[2025-03-15 15:24] VITALS: BP 131/59; PULSE 60; RESP 16; TEMP 37.7; O2SAT 98
[2025-03-15 17:54] LABS: Glucose, Whole Blood 123 mg/dL (60-115)
[2025-03-15 19:07] VITALS: BP 118/56; PULSE 50; RESP 18; TEMP 36.6; O2SAT 98
[2025-03-15 21:31] LABS: Glucose, Whole Blood 92 mg/dL (60-115)
[2025-03-15] MEDS: Parenteral Nutrition 2,400 ML 100 ML IV (22:10)
[2025-03-15] MEDS: 0.9 % Sodium Chloride Flush 10 ML SYRINGE IVFLUSH (22:15)
[2025-03-16] VITALS: BP 109/52; PULSE 53; RESP 18; TEMP 36.4; O2SAT 98
[2025-03-16 04:00] VITALS: BP 129/60; PULSE 72; RESP 18; TEMP 36.6; O2SAT 98
[2025-03-16 06:43] LABS: Glucose, Whole Blood 119 mg/dL (60-115)
[2025-03-16 07:42] VITALS: BP 116/57; PULSE 77; RESP 16; TEMP 36.7; O2SAT 99
[2025-03-16 07:44] LABS: Albumin Level 3.3 g/dL (3.5-5.0); Anion Gap 11 (12-20); Blood Urea Nitrogen 21 mg/dL (9-16); Calcium 8.7 mg/dL (8.4-10.2); Carbon Dioxide 19 mmol/L (22-29); Chloride 116 mmol/L (96-108); Creatinine Clr Calc Pharmacy 85.1; Estimated Glomerular Filt Rate > 60; Magnesium 2.3 mg/dL (1.6-2.6); Potassium 4.2 mmol/L (3.3-5.1); Sodium 142 mmol/L (135-145)
--- NOTE | 2025-03-16 07:44 | PM.PNGS ---
Subjective Subjective Date of Service: 03/16/25 <Haroldo Langston PA-C - Last Filed: 03/16/25 07:51> 03/16/25 <Poncho Montgomery MD - Last Filed: 03/16/25 08:39> Patient reports: no new complaints <KHRIS Motley Last Filed: 03/16/25 07:51> Interval history: denies pain. has been ambulating with assitance. tolerating diet. Passed multiple bowel movements yesterday. Deneies n/v. He is not interesting in going to short term nursing facility after d/c <Haroldo Langston PA-C - Last Filed: 03/16/25 07:51> Physical Exam Vital Signs: Vital Signs: Last Vital Signs Temp 97.8 F 03/16/25 04:00 Pulse 72 03/16/25 04:00 Resp 18 03/16/25 04:00 BP 129/60 03/16/25 04:00 Pulse Ox 98 03/16/25 04:00 O2 Del Method Room Air 03/16/25 04:00 O2 Flow Rate 5 03/14/25 15:40 FiO2 21 03/13/25 14:00 BMI result Body Mass Index 18.2 <Haroldo Langston PA-C - Last Filed: 03/16/25 07:51> Const: General: comfortable and no acute distress <KHRIS Motley Last Filed: 03/16/25 07:51> Orientation/consciousness: patient oriented x3 <Haroldo Langston PA-C - Last Filed: 03/16/25 07:51> Resp: Effort & Inspection: normal respiratory effort and able to speak in complete sentences <Haroldo Langston PA-C - Last Filed: 03/16/25 07:51> GI: Other: incision site appears clean dry and intact. jay in place, removed at bedside <KHRIS Motley Last Filed: 03/16/25 07:51> Inspection: No distended <KHRIS Motley Last Filed: 03/16/25 07:51> Palpation (GI): Soft to palpation, not firm, nontender, no guarding and not rigid <KHRIS Motley Last Filed: 03/16/25 07:51> Neuro: General: patient oriented x3 <Haroldo Langston PA-C - Last Filed: 03/16/25 07:51> Objective Data Active Medications Albuterol/Ipratropium (Albuterol/Iprat 2.5/0.5mg 3 Ml Ampul.Neb) 3 ml INHALE RQ4H WHILE AWAKE PRN PRN Reason: Shortness of Breath Enoxaparin Sodium (Enoxaparin Sodium 40 Mg/0.4 Ml Syringe) 40 mg SUBCUT Q24H REPLACED BY [facility] Last Admin: 03/15/25 14:16 Dose: 40 mg Documented By: HERRERA Hydromorphone HCl (Hydromorphone Hcl 1 Mg/Ml Syringe) 1 mg IVPUSH Q4H PRN; Protocol PRN Reason: Breakthrough Pain Last Admin: 03/16/25 06:02 Dose: 1 mg Documented By: JEANNE Nutrition (Parenteral) (Parenteral Nutrition) 2,400 mls @ 100 mls/hr IV .Q24H REPLACED BY [facility]; Protocol Stop: 03/16/25 20:59 Last Admin: 03/15/25 22:10 Dose: 100 mls/hr Documented By: JEANNE Ondansetron HCl (Ondansetron Hcl 4 Mg/2 Ml Vial) 4 mg IVPUSH Q6H PRN PRN Reason: Nausea and Vomiting Last Admin: 03/10/25 00:38 Dose: 4 mg Documented By: MYAH Pharmacy Consult (Consult Rx Parenteral Nutrition Ordering) 1 each MISCELLANE DAILY PRN PRN Reason: Consult order Sodium Chloride (0.9 % Sodium Chloride Flush 10 Ml Syringe) 10 ml IVFLUSH QSHIFT REPLACED BY [facility] Last Admin: 03/15/25 22:15 Dose: 10 ml Documented By: JEANNE <Haroldo Langston PA-C - Last Filed: 03/16/25 07:51> Labs CBC & Chem 7: 03/13/25 04:59 03/16/25 06:45 <Haroldo Langston PA-C - Last Filed: 03/16/25 07:51> Labs: Laboratory Results - last 24 hr 03/15/25 03/15/25 03/15/25 12:06 17:32 20:47 Hold Purple Top POC Glucose 109 123 H 92 03/16/25 03/16/25 06:40 06:45 Hold Purple Top SEE NOTE POC Glucose 119 H <Haroldo Langston PA-C - Last Filed: 03/16/25 07:51> Procedures Date of Service Date of Service: 03/16/25 <Haroldo Langston PA-C - Last Filed: 03/16/25 07:51> 03/16/25 <Poncho Montgomery MD - Last Filed: 03/16/25 08:39> Progress Note: A&P Assessment and plan (1) S/P small bowel resection: Status: Acute <Haroldo Langston PA-C - Last Filed: 03/16/25 07:51> Assessment and Plan: Looks well Denies significant pain Tolerating diet Abdomen is soft and benign Inguinal incision clean, well healed Charlotte removed No lifting more than 20 lb Seen and examined independently <Poncho Montgomery MD - Last Filed: 03/16/25 08:39> (2) S/P inguinal hernia repair: Status: Acute <Haroldo Langston PA-C - Last Filed: 03/16/25 07:51> (3) S/P orchiectomy: Status: Acute <Haroldo Langston PA-C - Last Filed: 03/16/25 07:51> Assessment and Plan: Patient is doing well form a surgical standpoint. Abdomen is soft and benign, incision site appears clean dry and intact. Charlotte were removed at bedside, patient tolerated well. he is tolerating diet, ambulating. Patient is clinically unobstructed, passing gas and bowel movements, denies pain, nausea or vomiting after meals, non distended. At this point patients okay for d/c from a surgical perspective. Can d/c when cleared by hospitalist. Patient should follow up in the office 1-2 weeks after d/c. general surgery will sign off, please reconsult if needed. <Haroldo Langston PA-C - Last Filed: 03/16/25 07:51> Time Spent With Patient Time: Total time managing care of this patient today ____ minutes. <Haroldo Langston PA-C - Last Filed: 03/16/25 07:51> Quality Stroke Does the patient have a stroke diagnosis?: No <Haroldo Langston PA-C - Last Filed: 03/16/25 07:51> VTE Prior VTE?: No <Haroldo Langston PA-C - Last Filed: 03/16/25 07:51> VTE Risk Level:: Medical - moderate - high <Haroldo Langston PA-C - Last Filed: 03/16/25 07:51> VTE Device Contraindication: Treatment Not Indicated <Haroldo Langston PA-C - Last Filed: 03/16/25 07:51> VTE Drug Contraindication: N/A - Med Ordered <Haroldo Langston PA-C - Last Filed: 03/16/25 07:51>
[2025-03-16 08:28] VITALS: BP 116/57; PULSE 77; O2SAT 99
--- NOTE | 2025-03-16 10:25 | MHC.CM.PN ---
Per ROUNDS discussion, Patient will be medically cleared for dc to home with services today.CM met with Patient at bedside and addressed IMM with him, providing Patient with the original and a copy has been placed on the chart. Patient declined PT's recommendation for STR, but he is agreeable to [facility](who has been made aware of today's dc).
--- NOTE | 2025-03-16 11:01 | P.DS_ITS ---
DS: Providers Provider Date of Service: 03/16/25 Date of admission: 03/01/25 13:30 Date of discharge: 03/16/25 Primary care physician: Felix Randle MD Consults: 03/01/25 14:24 Consult to Wound Care Routine Reason for consultation: Multiple skin tears 03/02/25 08:59 Consult to Nephrology Routine Consulting Provider: [facility] Reason for consultation: Hyponatremia 03/03/25 16:24 Consult to General Surgery Routine Consulting Provider: [facility] Reason for consultation: right inguinal hernia; old, 2 previous surgeries (bothering him a lot) Has provider been notified: No 03/04/25 17:30 Consult to Cardiology Routine Consulting Provider: [facility] Reason for consultation: pre-op open hernia repair. CHF, CAD, amyloidois 03/12/25 06:23 Consult to Nephrology Routine Consulting Provider: [facility] Reason for consultation: hypernatremia 03/12/25 06:27 Consult to Critical Care Routine Consulting Provider: Tiara Marroquin Reason for consultation: Hypoxia 03/12/25 06:39 Consult to General Surgery Stat Consulting Provider: [facility] Reason for consultation: SBO Attending physician on discharge: Eligio Baker Discharging clinician: Shira Toledo DS: Diagnosis Discharge Diagnosis (1) S/P small bowel resection: Status: Acute (2) S/P inguinal hernia repair: Status: Acute (3) S/P orchiectomy: Status: Acute DS: Summary Hospital Course Hospital Course: From H&P on the day of admission 75-year-old male with past medical history of laryngeal cancer, status post laryngectomy and radical neck dissection surgery in 2019, persistent AFib, CAD, status post PCI 1993 to , history of chronic heart failure with preserved ejection fraction, cardiomyopathy, sacral insufficiency fracture, BPH, pacemaker presented to the ED after falls x2. Patient was here earlier this month on the 12th after a fall he had a CT scan that showed sacral insufficiency fracture, he did not require a medical admission, and he was discharged to [facility] for rehab. Patient reports that he was discharged from rehab yesterday afternoon. He fell when he got home reaching for an object, he went to bed and slept most of the night, woke up at 05:00, and had another fall. He denies any head strike with either fall. Reports that he was on the ground for approximately 1 hour. His cardiology team did not hear from him and were unable to reach him so they called 911 and he was brought here for further care. Patient has several skin tears and abrasions to his arms and legs, several bruises to his arms. He is reporting lower back pain bilaterally. Has range of motion of bilateral lower legs however when he raised his legs he reports pain in his back. In the ED he was found to have leukocytosis of 12.2 with a left shift of 83.6, slightly anemic 11.6 and 33.8 at baseline. Sodium was 125 with a BUN of 37. Osmolality 267. Patient received a dose of IV ceftriaxone in the ED. Patient reports that he has not eaten since 11:00 yesterday. 75-year-old male with past medical history of laryngeal cancer, status post laryngectomy and radical neck dissection surgery in 2019, persistent AFib, CAD, status post PCI 1993 to , history of chronic heart failure with preserved ejection fraction, cardiomyopathy, sacral insufficiency fracture, BPH, pacemaker presented to the ED after falls x2. Patient was seem at earlier this month after a fall he had a CT scan that showed sacral insufficiency fracture, he did not require a medical admission, and he was discharged to [facility] for rehab. Patient was discharged from Rehab and presented to hospital one day after discharge due to two falls at home. He was found to have hyponatremia, Enterococcus facalis UTI sensitive to amoxicillin and PNA. Patient was seen by wound team for several skin tears and abrasions to his arms and legs, several bruises to his arms. Patient was found to have new rib fractures. In the ED he was found to have leukocytosis of 12.2 with a left shift of 83.6, slightly anemic 11.6 and 33.8 at baseline. Sodium was 125 with a BUN of 37. Osmolality 267. Head CT negative for acute abnormality, Lumbar CT with no new fractures and early healing of sacral insufficiency fracture. Found to have new Right lateral 9th-11th ribs and possible anterior eighth rib fracture. Patient received Ceftriaxone and Doxycycline for treatment of PNA and UTI, will complete course of Augmentin on DC. His sodium improved to baseline of 130 with fluid restriction of 1200 cc and home medication regime. Patient is followed by [facility], has a cardio ROBER and Pacer. 75yo M with chronic hypoNa, CKD2, BPH, HFpEF, CAD, AF, 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, GERD, chronic back pain, sacral fracture send back from [facility]hab due to 2 falls; found to have hypoNa, UTI, and PNA along with multiple rib fractures was pending discharge to [facility] but then developed SBO from incarcerated hernia ultimately requiring surgery SBO incarcerated inguinal hernia s/p open repair of right inguinal hernia repair with small bowel resection and right orchiectomy 03/05/25 NG-tube inadvertently removed by patient. No vomiting since removal. Repeat abdominal CT on 03/12/2025 showing multiple dilated loops of small bowel, not much changed from previous, seen by General surgery who thought that the anastomosis was patent and hernia repair intact. TPN started, pulled picc line 03/12 so PPN started, patient was able to tolerate clear liquids, diet was advanced and he is tolerating regular diet. Having bowel movements, no abdominal pain, benign abdominal exam. patient is eager to return home. will need outpatient follow-up with General surgery in 2 weeks. HAYDER, suspect prerenal hypoNa, acute-chronic resolved with NS fluid resuscitation. sodium levels normal. hold tolvaptan upon discharge. repeat labs in one week multiple rib fractures resume baseline morphine LLL PNA Completed course of antibiotics Enterococcus faecalis UTI Completed course of antibiotics BPH resume doxazosin HFpEF Continue Jardiance; torsemide and spironolactone has been on hold. Bicarb low, we will discontinue acetazolamide. Appears euvolemic at this time. Recommend o utpatient follow-up with [facility] to determine need for ongoing diuretics. Recommend low-sodium diet and fluid restriction amyloidosis resume tafamidis CAD AF not on anticoagulation presumably due to fall risk laryngeal CA s/p resection, stoma yearly follow-up with Oncology Disposition-initially physical therapy recommended rehab, patient strength improving, patient declines to short-term rehab and has elected to return home with home services. Time Attestation Discharge Coordination Time (in mins): 40 Quality: Safe Use of Opioids Does Pt have an Active Cancer Diagnosis on the Problem List?: No Quality: Stroke Does the patient have a stroke diagnosis?: No Physical Exam Vital Signs: Vital Signs: Last Vital Signs Temp 98.0 F 03/16/25 07:42 Pulse 77 03/16/25 08:28 Resp 16 07/10/25 07:42 BP 116/57 L 03/16/25 08:28 Pulse Ox 99 03/16/25 08:28 O2 Del Method Room Air 03/16/25 07:42 O2 Flow Rate 5 03/14/25 15:40 FiO2 21 03/13/25 14:00 BMI result Body Mass Index 18.2 Const: General: cooperative, comfortable, no acute distress, alert and awake Nutritional Appearance: average body habitus Orientation/consciousness: patient oriented x3 Resp: Effort & Inspection: normal respiratory effort, able to speak in complete sentences, no respiratory distress and no use of accessory muscles Cardio: Rate: regular rate GI: Inspection: No distended Palpation (GI): Soft to palpation and nontender Neuro: General: patient oriented x3, moves all extremities and CN's II-XI intact bilaterally DS: Data Data Completed and Pending Completed studies during hospitalization [Text1]: Pending at discharge 03/05/25 14:19 Surgical [PTH] Routine Labs on day of discharge: Laboratory Results - last 24 hr 03/15/25 03/15/25 03/15/25 12:06 17:32 20:47 Hold Purple Top Sodium Potassium Chloride Carbon Dioxide Anion Gap BUN Creatinine Estim Creat Clear Calc Estimated GFR POC Glucose 109 123 H 92 Random Glucose Calcium Phosphorus Magnesium Albumin 03/16/25 03/16/25 06:40 06:45 Hold Purple Top SEE NOTE Sodium 142 Potassium 4.2 Chloride 116 H Carbon Dioxide 19 L Anion Gap 11 L BUN 21 H Creatinine 0.66 Estim Creat Clear Calc 85.1 Estimated GFR > 60 POC Glucose 119 H Random Glucose 127 H Calcium 8.7 Phosphorus 3.5 Magnesium 2.3 Albumin 3.3 L Preliminary micro results at discharge 03/12/25 08:45 Blood Culture - Preliminary Blood - Venous No growth after 48 hours. 03/12/25 08:44 Blood Culture - Preliminary Blood - Venous No growth after 48 hours. Discharge Plan Discharge Anticipated Discharge Date/Time: 03/16/25 11:21 Patient Disposition: Home Health Service Discharge Diagnosis: Hyponatremia, FTT, PNA UTI, sbo/incarcerated hernia Referrals: [facility] [Outside] - 1 Week Poncho Montgomery MD [Physician, General Surgery] - 2 Weeks Physician,Leonila Kapoor [Physician, Medical] - 1 Week Discharge Medications: Continued terazosin 10 mg capsule 10 mg PO DAILY 90 Days Qty: 90 3RF Jardiance 10 mg tablet 10 mg PO DAILY morphine 15 mg tablet extended release 15 mg PO BID omeprazole 20 mg capsule,delayed release(DR/EC) 20 mg PO DAILY@0630 simvastatin 40 mg tablet 40 mg PO BEDTIME Vyndamax 61 mg capsule 61 mg PO DAILY Patient Comments: pt brought from home Held tolvaptan 30 mg tablet 30 mg PO DAILY Hold Instructions: hold until follow up with cardiology spironolactone 50 mg tablet 50 mg PO BID Hold Instructions: hold until follow up with cardiology or PCP Discontinued tramadol 50 mg tablet 50 mg PO Q4H PRN (Reason: Pain) Discharge Orders: Discharge Order (Routine); Ordered 03/16/25 Ordered By: Shira Toledo Diet: Low salt diet Activity on Discharge: As tolerated Stand Alone Forms: Patient Portal Discharge page Print Language: [place] Other Ambulatory Orders: Basic Metabolic Panel (Routine) Timeframe: 1 Week Facility: [facility] - Location: Laboratory Ordered By: Shira Toleod Care Plan Goals: Recover from PNA/UTI, surgery Improve Mobility Health Concerns: Hyponatremia Frequent falls UTI-completed antibiotics PNA-completed antibiotics Rib fractures/sacral Fracture Incarcerated hernia/SBO status post surgery Plan of Treatment: Call to schedule follow-up appointment with your primary care provider Call to schedule follow-up appointment with your sandblaster glass to determine need to continue diuretics and tolvaptan Call to schedule follow up appointment with general surgery repeat BMP in one week Assessment: Hyponatremia-Improved at baseline Deconditioning, Fall- Physical therapy Multiple fractures-Physical therapy Patient Instructions: Pneumonia (DC)
--- NOTE | 2025-03-16 11:26 | MHC.CLN ---
F/U DIET=REGULAR, BLAND. PPN DISCONTINUED. DISCHARGE SCHEDULED FOR TODAY.
--- NOTE | 2025-03-16 11:58 | W.MHC.F2F ---
Service Date Service Date: 03/16/25 Encounter Date of encounter: 03/16/25 Reasons for Services Signs and symptoms assessed: diuretics on hold - monitor for sings/symptoms of CHF Reason for intermediate: CV/CP assess and/or care Reason for physical therapy: home safety and mobility, therapeutic exercises and gait/transfer training MD Overseeing Care: Felix Randle Homebound: Leaving the home is medically contraindicated at this time without the asist of a device and/or another person due th the listed conditions above and below. Reason homebound: unsteady gait / fall risk Certification: Based on the above findings, I certify that this patient is confined to the home and needs intermittent intermediate care, physical therapy and/or speech therapy, or continues to need occupational therapy. The patient is under my care, and I have initiated the establishment of the plan of care. The patient will be followed by a physician who will periodically review the plan of care. Time Spent With Patient Time: Total time managing care of this patient today ____ minutes.
--- NOTE | 2025-03-16 13:31 | MHC.CM.PN ---
Per Patient's request, CM set up a LYFT for transport to home; PA & RN are aware.
== END 2025-03-16 13:59 | disposition home health service (06) | DRG 329 ==
LOC: HO.ED 13:39 → HO.EDOVER 14:18 → HO.S3 15:50 → HO.ICU 03-12 07:15 → HO.IMC 03-13 15:05
PROVIDERS: Family Medicine; Hospitalist; Internal Medicine; Internal Medicine Cardiovascular Disease; Internal Medicine Critical Care Medicine; Nurse Practitioner Acute Care; Nurse Practitioner Family; Physician Assistant Medical; Registered Nurse Community Health; Surgery; Admitting Provider Nurse Practitioner Family; Emergency Provider Emergency Medicine; PCP Internal Medicine; Visit Provider Physician Assistant Medical
PROC: 0DB80ZZ Excision of Small Intestine, Open Approach (ICD-10-PCS; principal; 2025-03-05 12:00)
PROC: 0DJ08ZZ Inspection of Upper Intestinal Tract, Via Natural or Artificial Opening Endoscopic (ICD-10-PCS; CPT 43235; principal; 2025-03-08 14:50)
PROC: 0D9680Z Drainage of Stomach with Drainage Device, Via Natural or Artificial Opening Endoscopic (ICD-10-PCS; 2025-03-08 14:50)
DX: K40.31 Unilateral inguinal hernia, with obstruction, without gangrene, recurrent (principal); J18.9 Pneumonia, unspecified organism; J96.01 Acute respiratory failure with hypoxia; E22.2 Syndrome of inappropriate secretion of antidiuretic hormone; I48.19 Other persistent atrial fibrillation; S22.41XA Multiple fractures of ribs, right side, initial encounter for closed fracture; N39.0 Urinary tract infection, site not specified; E85.4 Organ-limited amyloidosis; I43 Cardiomyopathy in diseases classified elsewhere; I50.32 Chronic diastolic (congestive) heart failure; Z68.1 Body mass index [BMI] 19.9 or less, adult; Z95.811 Presence of heart assist device; K55.9 Vascular disorder of intestine, unspecified; E44.0 Moderate protein-calorie malnutrition; N17.9 Acute kidney failure, unspecified; E87.0 Hyperosmolality and hypernatremia; K56.7 Ileus, unspecified; J44.0 Chronic obstructive pulmonary disease with (acute) lower respiratory infection; E87.3 Alkalosis; K21.9 Gastro-esophageal reflux disease without esophagitis; N18.2 Chronic kidney disease, stage 2 (mild); R62.7 Adult failure to thrive; Z93.0 Tracheostomy status; I25.10 Atherosclerotic heart disease of native coronary artery without angina pectoris; W19.XXXA Unspecified fall, initial encounter; G89.29 Other chronic pain; R29.6 Repeated falls; Z85.21 Personal history of malignant neoplasm of larynx; Z95.0 Presence of cardiac pacemaker; E83.39 Other disorders of phosphorus metabolism; N40.1 Benign prostatic hyperplasia with lower urinary tract symptoms; R39.12 Poor urinary stream; F41.9 Anxiety disorder, unspecified; I95.9 Hypotension, unspecified; E87.6 Hypokalemia; R33.9 Retention of urine, unspecified; E86.1 Hypovolemia; B95.2 Enterococcus as the cause of diseases classified elsewhere; E78.5 Hyperlipidemia, unspecified; Z95.1 Presence of aortocoronary bypass graft; Z90.02 Acquired absence of larynx; Z87.891 Personal history of nicotine dependence; Z79.899 Other long term (current) drug therapy
CPT/HCPCS: 36415; 36573; 70450; 71045; 71046; 71111; 71250; 72131; 73502; 74018; 74176; 74177; 80048; 80053; 81001; 82040; 82150; 82550; 82803; 82947; 83605; 83690; 83735; 83880; 83930; 83935; 84100; 84300; 84478; 84484; 85025; 85027; 85610; 87040; 87070; 87086; 87088; 87186; 87205; 87493; 88305; 88307; 93005; 93306; 94799; 97116; 97162; 97530; 99285; C1751; J0295; J0696; J1100; J1171; J1650; J2003; J2250; J2270; J2359; J2405; J2704; J2765; J3010; J3360; J3410; J3480; J7120; P9047; Q9957; Q9967

== ENCOUNTER 2025-03-01 13:30 | Outpatient (BNV) | payer MEDICARE, SELFPAY | END 2025-03-10 07:14 | PROVIDERS: Admitting Provider Nurse Practitioner Family; Emergency Provider Emergency Medicine; PCP Internal Medicine; Visit Provider Radiology Diagnostic Radiology | DX: I51.7 Cardiomegaly (principal) | CPT/HCPCS: 71045 ==

== ENCOUNTER 2025-03-01 13:30 | Outpatient (BNV) | payer MEDICARE, SELFPAY | END 2025-03-01 14:11 | PROVIDERS: Admitting Provider Nurse Practitioner Family; Emergency Provider Emergency Medicine; Visit Provider Radiology Diagnostic Radiology | DX: M51.369 Other intervertebral disc degeneration, lumbar region without mention of lumbar back pain or lower extremity pain (principal); M46.96 Unspecified inflammatory spondylopathy, lumbar region; M11.80 Other specified crystal arthropathies, unspecified site; I51.7 Cardiomegaly; R91.8 Other nonspecific abnormal finding of lung field | CPT/HCPCS: 71046 ==

== ENCOUNTER 2025-03-01 13:30 | Outpatient (BNV) | payer MEDICARE, SELFPAY | END 2025-03-05 07:00 | PROVIDERS: Admitting Provider Nurse Practitioner Family; Emergency Provider Emergency Medicine; Visit Provider Radiology Diagnostic Radiology | DX: J90 Pleural effusion, not elsewhere classified (principal); Z43.1 Encounter for attention to gastrostomy | CPT/HCPCS: 71045 ==

== ENCOUNTER 2025-03-01 13:30 | Outpatient (BNV) | payer MEDICARE, SELFPAY | END 2025-03-02 08:44 | PROVIDERS: Admitting Provider Nurse Practitioner Family; Emergency Provider Emergency Medicine; Visit Provider Radiology Diagnostic Radiology | DX: R07.81 Pleurodynia (principal); I51.7 Cardiomegaly; S32.462A Displaced associated transverse-posterior fracture of left acetabulum, initial encounter for closed fracture | CPT/HCPCS: 71111; 73502 ==

== ENCOUNTER 2025-03-01 13:30 | Outpatient (BNV) | payer MEDICARE, SELFPAY | END 2025-03-13 07:00 | PROVIDERS: Admitting Provider Nurse Practitioner Family; Emergency Provider Emergency Medicine; PCP Internal Medicine; Visit Provider Internal Medicine Cardiovascular Disease | DX: I51.7 Cardiomegaly (principal); I34.0 Nonrheumatic mitral (valve) insufficiency; I36.1 Nonrheumatic tricuspid (valve) insufficiency | CPT/HCPCS: 93306 ==

== ENCOUNTER 2025-03-01 13:30 | Outpatient (BNV) | payer MEDICARE, SELFPAY | END 2025-03-12 07:38 | PROVIDERS: Admitting Provider Nurse Practitioner Family; Emergency Provider Emergency Medicine; PCP Internal Medicine; Visit Provider Internal Medicine Cardiovascular Disease | DX: I48.91 Unspecified atrial fibrillation (principal) | CPT/HCPCS: 93010 ==

== ENCOUNTER 2025-03-01 13:30 | Outpatient (BNV) | payer MEDICARE, SELFPAY | END 2025-03-12 04:13 | PROVIDERS: Admitting Provider Nurse Practitioner Family; Emergency Provider Emergency Medicine; PCP Internal Medicine; Visit Provider Radiology Vascular & Interventional Radiology | DX: K40.90 Unilateral inguinal hernia, without obstruction or gangrene, not specified as recurrent (principal); K63.89 Other specified diseases of intestine; I51.7 Cardiomegaly; R91.8 Other nonspecific abnormal finding of lung field; S22.42XA Multiple fractures of ribs, left side, initial encounter for closed fracture | CPT/HCPCS: 74018 ==

== ENCOUNTER → 2025-03-01 13:30 | Outpatient (BNV) | payer MEDICARE, SELFPAY | PROVIDERS: Admitting Provider Nurse Practitioner Family; Emergency Provider Emergency Medicine; Visit Provider Nurse Practitioner Family | DX: E87.1 Hypo-osmolality and hyponatremia (principal) | CPT/HCPCS: 99221 ==

== ENCOUNTER → 2025-03-01 13:30 | Outpatient (BNV) | payer MEDICARE, SELFPAY | PROVIDERS: Admitting Provider Nurse Practitioner Family; Emergency Provider Emergency Medicine; PCP Internal Medicine; Visit Provider Internal Medicine Cardiovascular Disease | DX: I48.20 Chronic atrial fibrillation, unspecified (principal); E85.4 Organ-limited amyloidosis; I43 Cardiomyopathy in diseases classified elsewhere; I25.10 Atherosclerotic heart disease of native coronary artery without angina pectoris; Z95.818 Presence of other cardiac implants and grafts; K40.30 Unilateral inguinal hernia, with obstruction, without gangrene, not specified as recurrent; N17.9 Acute kidney failure, unspecified; N39.0 Urinary tract infection, site not specified; N40.1 Benign prostatic hyperplasia with lower urinary tract symptoms; I50.30 Unspecified diastolic (congestive) heart failure; J44.9 Chronic obstructive pulmonary disease, unspecified | CPT/HCPCS: 99232 ==

== ENCOUNTER → 2025-03-01 13:30 | Outpatient (BNV) | payer MEDICARE, SELFPAY | PROVIDERS: Admitting Provider Nurse Practitioner Family; Emergency Provider Emergency Medicine; Visit Provider Surgery | DX: K40.31 Unilateral inguinal hernia, with obstruction, without gangrene, recurrent (principal) | CPT/HCPCS: 49521; 54520; 99024; 99222; 99499 ==

== ENCOUNTER → 2025-03-01 13:30 | Outpatient (BNV) | payer MEDICARE, SELFPAY | PROVIDERS: Admitting Provider Nurse Practitioner Family; Emergency Provider Emergency Medicine; Visit Provider Internal Medicine | DX: Z01.810 Encounter for preprocedural cardiovascular examination (principal); E85.4 Organ-limited amyloidosis; I43 Cardiomyopathy in diseases classified elsewhere; I25.10 Atherosclerotic heart disease of native coronary artery without angina pectoris; I48.20 Chronic atrial fibrillation, unspecified; Z95.818 Presence of other cardiac implants and grafts | CPT/HCPCS: 99223 ==

== ENCOUNTER → 2025-03-01 13:30 | Outpatient (BNV) | payer MEDICARE, SELFPAY | PROVIDERS: Admitting Provider Nurse Practitioner Family; Emergency Provider Emergency Medicine; Visit Provider Internal Medicine | DX: N39.0 Urinary tract infection, site not specified (principal); J18.9 Pneumonia, unspecified organism | CPT/HCPCS: 99232; 99233 ==

== ENCOUNTER 2025-04-10 09:52 | Outpatient (AMB) | payer MEDICARE, SELFPAY ==
--- NOTE | 2025-04-10 10:10 | A.OFFVIS_ITS ---
Vital Signs 04/10/25 10:22 Height 6 ft 2 in Weight 145 lb 2 oz BMI 18.6 BP 120/57 L Blood Pressure Location Lt brachial Position Sitting Pulse 73 Intake Visit Reasons: er follow up Intake Note: Patient is seen in office for ER follow up visit, post insertion of NG tube into the stomach with use of endoscopy, under anesthesia Pt c/o: feels good at times does have uncontrolled diarrhea Chemical Maker Required: No Accompanied by: Self / Same As Patient Allergies No Known Allergies (No Known Allergies*) Allergy (Verified 04/10/25 10:20) HPI HPI er follow up: Details: Mr. Little presents today for routine follow up. He had a lengthy hospital stay from 03/01/25-03/16/25 during which he underwent reduction and resection of small bowel hernia with right orchiectomy on 03/05/25 for incarcerated right recurrent inguinal hernia, small bowel obstruction. Interrupted [id number] were used to attempt to reinforce the inguinal floor. He had delayed return of GI function following and required NGT insertion with upper endoscopy in the OR. Eventually his GI function returned and his diet was slowly advanced. STR was recommended however he refused and was discharged to home with services. He reports doing well since the surgery. He denies any pain at the incision site. He is tolerating solid diet but reports a diminished appetite. He has been having bowel movements and two episodes of loose stools for 1-2 days. He is since back to his normal formed bowel movements. He is ambulating with a crutch due to his chronic back/right upper rib pain. He has a follow up appointment with his PCP next week. 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 Mother History of hypertension Son No problems noted. Son No problems noted. Daughter No problems noted. 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 Patient Tobacco Use Status: Former Tobacco user Advance Directives Date on File: 02/17/25 service: No Review of Systems GI Reports as per HPI, Denies hematochezia, Denies diarrhea, Denies nausea and Denies vomiting Skin/Breast Denies rash Physical Exam Vital Signs: Last Vital Signs Pulse 73 04/10/25 10:22 BP 120/57 L 04/10/25 10:22 BMI result Body Mass Index 18.6 Const General: comfortable, no acute distress and alert Orientation/consciousness: patient oriented x3 Resp Effort & Inspection: normal respiratory effort GI Other: right inguinal incision well healed, no erythema or edema, area nontender no palpable hernia with valsalva Inspection: No distended Palpation (GI): Soft to palpation and nontender Skin General skin exam: no rashes or lesions noted Neuro General: patient oriented x3 and moves all extremities Results Reviewed Results Reviewed: A. Testis, right, orchiectomy: - Spermatic cord with ischemic injury, adhesions and focal necroinflammatory material. - Seminiferous tubules with focal necrosis. - Necrotic mesothelial-lined fibrovascular and adipose tissue consistent with hernia sac. B. Small bowel, segmental resection: Small bowel with extensive ischemic injury and mucosal necrosis; viable margins. Assessment & Plan Assessment & Plan (1) S/P inguinal hernia repair: Code(s): Z98.890 - Other specified postprocedural states; Z87.19 - Personal history of other diseases of the digestive system Category: Surgical (2) S/P small bowel resection: Code(s): Z90.49 - Acquired absence of other specified parts of digestive tract Category: Surgical (3) S/P orchiectomy: Comment: Right Code(s): Z90.79 - Acquired absence of other genital organ(s) Category: Surgical Plan 75 year old male who underwent reduction and resection of small bowel hernia with right orchiectomy on 03/05/25 for incarcerated right recurrent inguinal hernia, small bowel obstruction. He tolerated the procedure well. He was discharged to home with services on 03/16/25. He is doing well post operatively. His incision site is well healed without evidence of infection or hernia recurrence. It was discussed with him that he will be prone to hernia recurrences given his history and he was educated to continue no strenuous exercizes and heavy lifting greater than 25lbs. He can follow up as needed with concerns. He is comfortable with the plan. All questions answered. Coding Level of Care Code Global (40909) Diagnoses S/P inguinal hernia repair Z98.890; Z87.19 S/P small bowel resection Z90.49 S/P orchiectomy Z90.79
[2025-04-10 10:22] VITALS: BP 120/57; PULSE 73; BMI 18.6
--- OUTSIDE RECORDS SUMMARY | 2025-04-10 10:29 | XMS_ITS | Referral Summary ---
Author Organization [facility] Address [address] [place] [address] Care Team Providers Care Vault Manager Name Role Phone Felix [place] MD [...] 55 05/29/2023 8:30 AM EDT Temperature 36.4 C (97.5 F) 05/29/2023 8:30 AM EDT Respiratory Rate 14 05/29/2023 8:30 AM EDT Oxygen Saturation 92% 05/29/2023 8:30 AM EDT Inhaled Oxygen Concentration - - Weight 84 kg (185 lb 3.2 oz) 05/29/2023 6:19 AM EDT Height 188 cm (6' 2 ) 05/22/2023 2:09 PM EDT Body Mass Index 23.78 05/22/2023 2:09 PM EDT Plan of Treatment Not on file Medical Devices Implanted Type Area Talking Books Library Clerk Device Identifier Shelf Expiration Date Model / Serial / Lot Lens Intraocular Biconvex Aspheric Uv Blocking Hydrophobic Acrylic One Piece [id number] [employer]ec[employer] - [id number] - [id number] Implanted:Qty: 1 on 05/29/2023 by Casey Zaman MD at [facility] [employer] 11/24/2026 [id number] / [id number] / [id number] 1 Piece Acrylic Aspheric Iol Implanted:Qty: 1 on 04/17/2023 by Casey Zaman MD at [facility] [employer] 12/29/2026 [id number] / [id number] / Insurance UHC MCR SUPP AARP MEDICARE Advance Directives Healthcare Agents on File Name Relationship Healthcare Agent [facility] James Meza Other Health Care Agent Care Teams Vault Manager Relationship Specialty Start Date End Date Felix [place] MD [address] [facility] [address] [place] [address] PCP - General Internal Medicine 03/06/23
--- OUTSIDE RECORDS SUMMARY | 2025-04-10 10:29 | XMS_ITS | Encounter Summary ---
Author Organization [facility] Address [address] [place] [phone] Care Team Providers Care Industrial Engineering Technologist Name Role Phone Felix [place] MD Primary Care Provider Encounter Details Date Type Department Care Team (Late st Contact Info) Description 02/23/2025 Lab Requisition [facility] - Main Lab [address] [facility] [place] [address] Lala [place] MD [address] [place] [address] Encounter for other general examination Social History [...] AM EDT) WBC 10.5 4.8 - 10.8 K/[facility] LAB HEMETOLOGY METHOD 02/23/2025 11:09 AM EDT [facility] LAB RBC 4.10(L) 4.50 - 5.50 M/[facility] LAB HEMETOLOGY METHOD 02/23/2025 11:09 AM [facility] LAB Hemoglobin 11.8(L) 13.5 - 17.5 g/dL LAB HEMETOLOGY METHOD 02/23/2025 11:09 AM [facility] LAB Hematocrit 37.3(L) 42.0 - 54.0 % LAB HEMETOLOGY METHOD 02/23/2025 11:09 AM [facility] LAB MCV 91.9 79.0 - 98.0 FL LAB HEMETOLOGY METHOD 02/23/2025 11:09 AM [facility] LAB MCH 29.1 27.0 - 32.0 pcg LAB HEMETOLOGY METHOD 02/23/2025 11:09 AM [facility] LAB MCHC 31.6(L) 32.0 - 37.0 g/dL LAB HEMETOLOGY METHOD 02/23/2025 11:09 AM [facility] LAB RDW 19.9(H) 11.0 - 15.0 % LAB HEMETOLOGY METHOD 02/23/2025 11:09 AM [facility] LAB Platelets 194 130 - 400 K/mcL LAB HEMETOLOGY METHOD 02/23/2025 11:09 AM [facility] LAB MPV 9.4 7.0 - 11.0 FL LAB HEMETOLOGY METHOD 02/23/2025 11:09 AM [facility] LAB NRBC 0.0 <1.0 % LAB HEMETOLOGY METHOD 02/23/2025 11:09 AM [facility] LAB NRBC Absolute 0.00 <0.10 K/mcL LAB HEMETOLOGY METHOD 02/23/2025 11:09 AM [facility] LAB Blood Venous blood specimen / Unknown Venipuncture / Unknown 02/23/2025 6:40 AM EDT 02/23/2025 10:06 AM EDT us Lala [place] MD LAB BLOOD ORDERABLES Final Resu lt [facility] [address] [place] [address], * (ABNORMAL) Basic metabolic panel (02/23/2025 6:40 AM EDT) Sodium 125(L) 133 - 145 mmol/L LAB CHEMISTRY METHOD 02/23/2025 11:56 AM EDT [facility] Potassium 5.2 3.5 - 5.5 mmol/L LAB CHEMISTRY METHOD 02/23/2025 11:56 AM T [facility] Chloride 92(L) 96 - 110 mmol/L LAB CHEMISTRY METHOD 02/23/2025 11:56 AM [facility] LAB CO2 21 21 - 32 mmol/L LAB CHEMISTRY METHOD 02/23/2025 11:56 AM [facility] LAB Anion Gap 12(H) 3 - 11 LAB CHEMISTRY METHOD 02/23/2025 11:56 AM [facility] Glucose 69(L) 70 - 100 mg/dL LAB CHEMISTRY METHOD 02/23/2025 11:56 AM [facility] LAB BUN 41(H) 5 - 25 mg/dL LAB CHEMISTRY METHOD 02/23/2025 11:56 AM [facility] Creatinine 1.21 0.70 - 1.30 mg/dL LAB CHEMISTRY METHOD 02/23/2025 11:56 AM [facility] LAB eGFR 62 >=60 mL/min/1. 73m2 LAB CHEMISTRY METHOD 02/23/2025 11:56 AM [facility] LAB Comment:Calculation based on the Chronic Kidney Disease Epidemiology Collaboration (CKD-EPI) equation refit without adjustment for race. BUN/Creatinine Ratio 33.9 LAB CHEMISTRY METHOD 02/23/2025 11:56 AM [facility] Calcium 10.0 8.5 - 10.5 mg/dL LAB CHEMISTRY METHOD 02/23/2025 11:56 AM EDT [facility] Blood Venous blood specimen / Unknown Venipuncture / Unknown 02/23/2025 6:40 AM EDT 02/23/2025 10:06 AM EDT us Lala [place] MD LAB BLOOD ORDERABLES Final Resu lt [facility] [address] [place] [address], documented in this encounter Visit Diagnoses Diagnosis Encounter for other general examination documented in this encounter Care Teams Industrial Engineering Technologist Relationship Specialty Start Date End Date Felix [place] MD 100 [facility] [address] [place], [place] PCP - General Internal Medicine 06/24/12 documented as of this encounter
--- OUTSIDE RECORDS SUMMARY | 2025-04-10 10:29 | XMS_ITS | Encounter Summary ---
Author Organization [facility] Address [address] [place] [address] Phone Care Team Providers Care Metal Miner Blasting Name Role Phone [place] MD Primary Care Provider Encounter Details Date Type Department Care Team (Late st Contact Info) Description 08/20/2023 Procedure Pass [facility], Ct Scan - [address] [address] Social History Tobacco Use Types Packs/Day Years Used Date Smoking Tobacco: Former Smokeless Tobacco: Never Alcohol Use Standard Drinks/Week Comments Not Currently 0 (1 standard drink = 0.6 oz pur e alcohol) Education Answer Date Recorded Are you interested in more education? Not on tristen e 01/18/2023 Are you concerned about learning? Not on file 01/18/2023 No 01/18/2023 No 01/18/2023 Digital Access Answer Date Recorded No 02/01/2023 No 02/01/2023 Reliable internet access at home? Not on file 02/01/2023 Device with a working camera? Not on file Sex and Gender Information Value Date Recorded Sex Assigned at Male 09/04/2019 7:02 PM EST Legal Sex Male 5:45 PM EST Gender Identity Male 09/04/2019 7:02 PM EST Sexual Orientation Straight 05/11/2024 4: 42 PM EDT documented as of this encounter Functional Status * Calculated C-SSRS Risk Score (Lifetime/Recent) Answer Date of Assessment Author No Risk Indicated 08/20/2023 6:33 PM EST Jerica Delarosa * [place] Suicide Severity Rating Scale (Screener/Recent Self-Report) Question Answer Date of Assessment Author 1. Wish to be (Past 1 Month) No 023 6:33 PM EST Jerica Delarosa 2. Non-Specific Active Suici nori Thoughts (Past 1 Month) No 08/20/2023 6:33 PM EST Ashley [place]osa on 6. Suicidal Behavior (Lifetime) No 3 6:33 PM Jerica Rivera documented as of this encounter Plan of Treatment Not on file documented as of this encounter Visit Diagnoses Not on filedocumented in this encounter Care Teams Metal Miner Blasting Relationship Specialty Start Date End Date Felix [place] MD [address] [place] [address] PCP - General Internal Medicine 08/20/23 documented as of this encounter Additional Source Comments The information contained in this document represents components of the legal health record. It is not the complete legal health record.[facility]
== END 2025-04-10 11:23 | disposition home or self-care (01) ==
PROVIDERS: PCP Internal Medicine; Visit Provider Physician Assistant Surgical
DX: Z98.890 Other specified postprocedural states (principal); Z87.19 Personal history of other diseases of the digestive system; Z90.49 Acquired absence of other specified parts of digestive tract; Z90.79 Acquired absence of other genital organ(s)
CPT/HCPCS: 99024

== ENCOUNTER → 2025-04-10 09:52 | Outpatient (BNVA) | payer MEDICARE, SELFPAY | PROVIDERS: PCP Internal Medicine; Visit Provider Physician Assistant Surgical | DX: Z90.49 Acquired absence of other specified parts of digestive tract (principal); Z90.79 Acquired absence of other genital organ(s); Z87.19 Personal history of other diseases of the digestive system; Z98.890 Other specified postprocedural states | CPT/HCPCS: 99212 ==

== ENCOUNTER 2025-07-07 11:20 | Outpatient (REF) | payer MEDICARE, SELFPAY ==
--- OUTSIDE RECORDS SUMMARY | 2025-07-07 12:54 | XMS_ITS | Encounter Summary ---
Author Organization [facility] Address [address] [place] [address] Care Team Providers Care Clinical Specialist Vascular Name Role Phone Felix [place] MD Primary Care Provider [phone] Encounter Details Date Type Department Care Team (Late st Contact Info) Description 02/24/2025 Lab Requisition [facility] - Main Lab 299 [facility] [place] [address] Lala [place] MD [address] [place] [address] Encounter for other general examination Social History [...] Procedure Name Priority Date/Time Associated Diagnosis Comments MAGNESIUM Routine 02/24/2025 5:30 AM EDT Encounter for other general examination BASIC METABOLIC PANEL Routine 02/24/2025 5:30 AM EDT Encounter for other general examination documented in this encounter Results * Magnesium (02/24/2025 5:30 AM EDT) Magnesium 2.3 1.9 - 2.6 mg/dL LAB CHEMISTRY METHOD 02/24/2025 10:28 AM EDT [facility] ([facility]) [facility] Blood Venous blood specimen / Unknown Venipuncture / Unknown 02/24/2025 5:30 AM EDT 02/24/2025 9:41 AM EDT us Lala [place] MD LAB BLOOD ORDERABLES Final Resu lt [facility] [address] [place] [address], [place] [phone] * (ABNORMAL) Basic metabolic panel (02/24/2025 5:30 AM EDT) Sodium 130(L) 133 - 145 mmol/L LAB CHEMISTRY METHOD 02/24/2025 10:28 AM [facility] Potassium 3.9 3.5 - 5.5 mmol/L LAB CHEMISTRY METHOD 02/24/2025 10:28 AM [facility] Chloride 93(L) 96 - 110 mmol/L LAB CHEMISTRY METHOD 02/24/2025 10:28 AM [facility] CO2 27 21 - 32 mmol/L LAB CHEMISTRY METHOD 02/24/2025 10:28 AM [facility] Anion Gap 10 3 - 11 LAB CHEMISTRY METHOD 02/24/2025 10:28 AM [facility] Glucose 94 70 - 100 mg/dL LAB CHEMISTRY METHOD 02/24/2025 10:28 AM [facility] BUN 39(H) 5 - 25 mg/dL LAB CHEMISTRY METHOD 02/24/2025 10:28 AM [facility] Creatinine 1.12 0.70 - 1.30 mg/dL LAB CHEMISTRY METHOD 02/24/2025 10:28 AM [facility] eGFR 68 >=60 mL/min/1. 73m2 LAB CHEMISTRY METHOD 02/24/2025 10:28 AM [facility] LAB Comment:Calculation based on the Chronic Kidney Disease Epidemiology Collaboration (CKD-EPI) equation refit without adjustment for race. BUN/Creatinine Ratio 34.8 LAB CHEMISTRY METHOD 02/24/2025 10:28 AM EDT [facility] Calcium 8.4(L) 8.5 - 10.5 mg/dL LAB CHEMISTRY METHOD 02/24/2025 10:28 AM EDT [facility] Blood Venous blood specimen / Unknown Venipuncture / Unknown 02/24/2025 5:30 AM EDT 02/24/2025 9:41 AM EDT us Lala [place] MD LAB BLOOD ORDERABLES Final Resu lt [facility] [address] [place] [address], documented in this encounter Visit Diagnoses Diagnosis Encounter for other general examination documented in this encounter Care Teams Clinical Specialist Vascular Relationship Specialty Start Date End Date Felix [place] MD [address] [facility] [address] [place], [place] PCP - General Internal Medicine 06/24/12 documented as of this encounter
--- OUTSIDE RECORDS SUMMARY | 2025-07-07 12:55 | XMS_ITS | Encounter Summary ---
Author Organization [facility] Address [address] [place] [phone] Phone Care Team Providers Care Carpenter Foreman Name Role Phone Felix [place] MD Primary Care Provider Encounter Details Date Type Department Care Team (Late st Contact Info) Description 08/20/2023 Procedure Pass [facility], Ct Scan - [address] [address] Social History Tobacco Use Types Packs/Day Years [...] 08/20/2023 6:33 PM EST Jerica Delarosa * [place] Suicide Severity Rating Scale (Screener/Recent Self-Report) Question [...] on filedocumented in this encounter Care Teams Carpenter Foreman Relationship Specialty Start Date End Date Felix [place] MD [address] [place] [address] PCP - General Internal Medicine 08/20/23 documented as of this encounter Additional Source Comments The information contained in this document represents components of the legal health record. It is not the complete legal health record.[facility]
--- OUTSIDE RECORDS SUMMARY | 2025-07-07 12:55 | XMS_ITS | Encounter Summary ---
Author Organization [facility] Address [address] [place] [phone] Phone Care Team Providers Care Contact Center Associate Name Role Phone Felix [place] MD Primary Care Provider Encounter Details Date Type Department Care Team (Latest Contact Info) Description 04/14/2024 Transcribe Orders Virtual Department [address] [place] [address] Re Beyer NP [address] [place] [address] Anemia, unspecified type (Primary Dx) Social History Tobacco Use Types Packs/Day Years [...] PM EDT documented as of this encounter Plan of Treatment Not on file documented as of this encounter Results * US ABDOMEN LIMITED RIGHT UPPER QUADRANT (04/20/2024 3:09 PM EDT) Anatomical Region Laterality Modality Abdomen Ultrasound 04/20/2024 4:04 PM EDT Impressions 04/20/2024 4:10 PM EDT 1. Normal-appearing liver. Trace ascites. Prominent hepatic veins and intrahepatic IVC questionable for right heart failure. 2. Question small gallstone. Narrative 04/20/2024 4:10 PM EDT US ABDOMEN LIMITED RIGHT UPPER QUADRANT Referring clinician's provided indication for this examination in [facility]: Outside Radiology Order; anemia TECHNIQUE: US Abdominal limited right upper quadrant. COMPARISON: Chest x-ray March 2024 FINDINGS: Liver: Normal. No focal lesions. Main Portal Vein: Patent with normal direction of flow. The main portal vein appears prominent measuring 15 to 18 mm. The intrahepatic IVC and hepatic veins are also very prominent. Findings may be due to right heart failure. Gallbladder: Small echogenic density adjacent to the gallbladder wall questionable for small gallstone. This measures 5 mm. The gallbladder is normal in size. No gallbladder wall thickening. Meza's Sign: Negative. Biliary: Normal. No intrahepatic or extrahepatic biliary ductal dilatation. The common bile duct measures 3 mm. Normal right kidney. Trace ascites. Procedure Note Kandi Gutierrez MD - 04/20/2024 US ABDOMEN LIMITED RIGHT UPPER QUADRANT Referring clinician's provided indication for this examination in [facility]:Outside Radiology Order; anemia TECHNIQUE: US Abdominal limited right upper quadrant. COMPARISON: Chest x-ray March 2024 FINDINGS: Liver: Normal. No focal lesions. Main Portal Vein: Patent with normal direction of flow. The main portalvein appears prominent measuring 15 to 18 mm. The intrahepatic IVC andhepatic veins are also very prominent. Findings may be due to right heartfailure. Gallbladder: Small echogenic density adjacent to the gallbladder wallquestionable for small gallstone. This measures 5 mm. The gallbladder isnormal in size. No gallbladder wall thickening. Meza's Sign: Negative. Biliary: Normal. No intrahepatic or extrahepatic biliary ductaldilatation. The common bile duct measures 3 mm. Normal right kidney. Trace ascites. IMPRESSION: 1. Normal-appearing liver. Trace ascites. Prominent hepatic veins andintrahepatic IVC questionable for right heart failure. 2. Question small gallstone. Re Beyer ANTHROPOLOGIST IMG US ABDOMEN Final Res ult documented in this encounter Visit Diagnoses Diagnosis Anemia, unspecified type- Primary Anemia, unspecified type documented in this encounter Care Teams Contact Center Associate Relationship Specialty Start Date End Date Felix [place] MD [address] [place] [address] PCP - General Internal Medicine 08/20/23 documented as of this encounter Additional Source Comments The information contained in this document represents components of the legal health record. It is not the complete legal health record.[facility]
--- OUTSIDE RECORDS SUMMARY | 2025-07-07 12:55 | XMS_ITS | Encounter Summary ---
Author Organization [facility] Address [address] [place] [address] Care Team Providers Care Tie Cutter Name Role Phone Felix [place] MD Primary Care Provider [phone] Encounter Details Date Type Department Care Team (Late st Contact Info) Description 02/18/2025 Lab Requisition [facility] - Main Lab 299 [facility] [place] [address] Lala [place] MD [address] [place] [address] Encounter for other general examination Social History [...] Procedure Name Priority Date/Time Associated Diagnosis Comments CBC WITH AUTO DIFFERENTIAL Routine 02/18/2025 5:51 AM EDT Encounter for other general examination PROTHROMBIN TIME WITH INR Routine 02/18/2025 5:51 AM EDT Encounter for other general examination CBC AND DIFFERENTIAL Routine 02/18/2025 5:51 AM EDT Encounter for other general examination MAGNESIUM Routine 02/18/2025 5:51 AM EDT Encounter for other general examination COMPREHENSIVE METABOLIC PANEL Routine 02/18/2025 5:51 AM EDT Encounter for other general examination documented in this encounter Results * (ABNORMAL) CBC auto differential (02/18/2025 5:51 AM EDT) [facility] WBC 6.0 4.8 - 10.8 K/mcL LAB HEMETOLOGY METHOD 02/18/2025 12:19 PM [facility] RBC 3.80(L) 4.50 - 5.50 M/mcL LAB HEMETOLOGY METHOD 02/18/2025 12:19 PM [facility] Hemoglobin 11.0(L) 13.5 - 17.5 g/dL LAB HEMETOLOGY METHOD 02/18/2025 12:19 PM [facility] Hematocrit 35.6(L) 42.0 - 54.0 % LAB HEMETOLOGY METHOD 02/18/2025 12:19 PM [facility] LAB MCV 93.7 79.0 - 98.0 FL LAB HEMETOLOGY METHOD 02/18/2025 12:19 PM [facility] MCH 28.9 27.0 - 32.0 pcg LAB HEMETOLOGY METHOD 02/18/2025 12:19 PM [facility] MCHC 30.9(L) 32.0 - 37.0 g/dL LAB HEMETOLOGY METHOD 02/18/2025 12:19 PM [facility] RDW 20.4(H) 11.0 - 15.0 % LAB HEMETOLOGY METHOD 02/18/2025 12:19 PM [facility] LAB Platelets 162 130 - 400 K/mcL LAB HEMETOLOGY METHOD 02/18/2025 12:19 PM [facility] LAB MPV 10.5 7.0 - 11.0 FL LAB HEMETOLOGY METHOD 02/18/2025 12:19 PM [facility] NRBC 0.0 <1.0 % LAB HEMETOLOGY METHOD 02/18/2025 12:19 PM [facility] NRBC Absolute 0.00 <0.10 K/mcL LAB HEMETOLOGY METHOD 02/18/2025 12:19 PM [facility] Neutrophils Relative 70.4 % LAB HEMETOLOGY METHOD 02/18/2025 12:19 PM [facility] Lymphocytes Relative 11.0 % LAB HEMETOLOGY METHOD 02/18/2025 12:19 PM [facility] Monocytes Relative 10.8 % LAB HEMETOLOGY METHOD 02/18/2025 12:19 PM [facility] Eosinophils Relative 6.0 % LAB HEMETOLOGY METHOD 02/18/2025 12:19 PM [facility] Basophils Relative 0.5 % LAB HEMETOLOGY METHOD 02/18/2025 12:19 PM [facility] Immature Granulocytes Relative 1.3 % LAB HEMETOLOGY METHOD 02/18/2025 12:19 PM [facility] Neutrophils Absolute 4.22 1.50 - 7.00 K/mcL LAB HEMETOLOGY METHOD 02/18/2025 12:19 PM [facility] Lymphocytes Absolute 0.66(L) 1.00 - 5.00 K/mcL LAB HEMETOLOGY METHOD 02/18/2025 12:19 PM [facility] Monocytes Absolute 0.65 0.20 - 1.00 K/mcL LAB HEMETOLOGY METHOD 02/18/2025 12:19 PM [facility] Eosinophils Absolute 0.36 0.00 - 0.50 K/mcL LAB HEMETOLOGY METHOD 02/18/2025 12:19 PM [facility] Basophils Absolute 0.03 0.00 - 0.20 K/mcL LAB HEMETOLOGY METHOD 02/18/2025 12:19 PM [facility] Immature Granulocytes Absolute 0.08(H) 0.00 - 0.03 K/mcL LAB HEMETOLOGY METHOD 02/18/2025 12:[address] [facility] Blood Venous blood specimen / Unknown Venipuncture / Unknown 02/18/2025 5:51 AM EDT 02/18/2025 10:28 AM EDT us Lala Low MD LAB BLOOD ORDERABLES Final Resu lt Performing Organization Address City/[facility]/ZIP Co de Phone Number [facility] [address] [place] [address], [place] [phone] * (ABNORMAL) Prothrombin time with INR (02/18/2025 5:51 AM EDT) Protime 14.4(H) 10.6 - 13.9 sec LAB COAGULATION METHOD 02/18/2025 12:[address] [facility] INR 1.2 LAB COAGULATION METHOD 02/18/2025 12:[address] [facility] Blood Venous blood specimen / Unknown Venipuncture / Unknown 02/18/2025 5:51 AM EDT 02/18/2025 10:28 AM EDT us Lala [place] MD LAB BLOOD ORDERABLES Final Resu lt Performing Organization Address City/[facility]/ZIP Co de Phone Number [facility] [address] [place] [address], [place] [phone] * Magnesium (02/18/2025 5:51 AM EDT) Magnesium 2.5 1.9 - 2.6 mg/dL LAB CHEMISTRY METHOD 02/18/2025 12:[address] [facility] Blood Venous blood specimen / Unknown Venipuncture / Unknown 02/18/2025 5:51 AM EDT 02/18/2025 10:28 AM EDT us Lala [place] MD LAB BLOOD ORDERABLES Final Resu lt [facility] [address] [place] [address], * (ABNORMAL) Comprehensive metabolic panel (02/18/2025 5:51 AM EDT) Sodium 130(L) 133 - 145 mmol/L LAB CHEMISTRY METHOD 02/18/2025 12:36 PM [facility] Potassium 3.5 3.5 - 5.5 mmol/L LAB CHEMISTRY METHOD 02/18/2025 12:36 PM [facility] Chloride 95(L) 96 - 110 mmol/L LAB CHEMISTRY METHOD 02/18/2025 12:36 PM [facility] CO2 29 21 - 32 mmol/L LAB CHEMISTRY METHOD 02/18/2025 12:36 PM [facility] Anion Gap 6 3 - 11 LAB CHEMISTRY METHOD 02/18/2025 12:36 PM [facility] Glucose 93 70 - 100 mg/dL LAB CHEMISTRY METHOD 02/18/2025 12:36 PM [facility] BUN 21 5 - 25 mg/dL LAB CHEMISTRY METHOD 02/18/2025 12:36 PM [facility] Creatinine 1.23 0.70 - 1.30 mg/dL LAB CHEMISTRY METHOD 02/18/2025 12:36 PM [facility] eGFR 60 >=60 mL/min/1. 73m2 LAB CHEMISTRY METHOD 02/18/2025 12:36 PM [facility] Comment:Calculation based on the Chronic Kidney Disease Epidemiology Collaboration (CKD-EPI) equation refit without adjustment for race. BUN/Creatinine Ratio 17.1 LAB CHEMISTRY METHOD 02/18/2025 12:36 PM [facility] Calcium 9.1 8.5 - 10.5 mg/dL LAB CHEMISTRY METHOD 02/18/2025 12:[address] [facility] AST (SGOT) 21 10 - 42 unit/L LAB CHEMISTRY METHOD 02/18/2025 12:[address] [facility] ALT (SGPT) 17 10 - 60 unit/L LAB CHEMISTRY METHOD 02/18/2025 12:[address] [facility] Alkaline Phosphatase 179(H) 42 - 121 unit/L LAB CHEMISTRY METHOD 02/18/2025 12:[address] [facility] Total Protein 6.4 6.0 - 8.0 g/dL LAB CHEMISTRY METHOD 02/18/2025 12:[address] [facility] Albumin 3.6 3.2 - 5.0 g/dL LAB CHEMISTRY METHOD 02/18/2025 12:36 PM [facility] Total Bilirubin 1.0 0.0 - 1.4 mg/dL LAB CHEMISTRY METHOD 02/18/2025 12:[address] [facility] Blood Venous blood specimen / Unknown Venipuncture / Unknown 02/18/2025 5:51 AM EDT 02/18/2025 10:28 AM EDT us Lala [place] MD LAB BLOOD ORDERABLES Final Resu lt [facility] [address] [place] [address], documented in this encounter Visit Diagnoses Diagnosis Encounter for other general examination documented in this encounter Care Teams Tie Cutter Relationship Specialty Start Date End Date Felix [place] MD [address] [place], [place] PCP - General Internal Medicine 06/24/12 documented as of this encounter
--- OUTSIDE RECORDS SUMMARY | 2025-07-07 12:55 | XMS_ITS | Encounter Summary ---
Author Organization [facility] Address [address] [place] [address] Care Team Providers Care Poly Operator Name Role Phone Felix Randle MD Primary Care Provider [phone] Encounter Details Date Type Department Care Team (Late st Contact Info) Description 02/23/2025 Lab Requisition [facility] - Main Lab [address] [place] [address] Lala Low MD [address] [place] [id number] Encounter for other general examination Social History [...] AM EDT) WBC 10.5 4.8 - 10.8 K/[facility] LAB HEMETOLOGY METHOD 02/23/2025 11:09 AM EDT [facility] LAB RBC 4.10(L) 4.50 - 5.50 M/mcL LAB HEMETOLOGY METHOD 02/23/2025 11:09 AM [facility] LAB Hemoglobin 11.8(L) 13.5 - 17.5 g/dL LAB HEMETOLOGY METHOD 02/23/2025 11:09 AM [facility] LAB Hematocrit 37.3(L) 42.0 - 54.0 % LAB HEMETOLOGY METHOD 02/23/2025 11:09 AM [facility] LAB MCV 91.9 79.0 - 98.0 FL LAB HEMETOLOGY METHOD 02/23/2025 11:09 AM [facility] LAB MCH 29.1 27.0 - 32.0 pcg LAB HEMETOLOGY METHOD 02/23/2025 11:09 AM [facility] LAB MCHC 31.6(L) 32.0 - 37.0 g/dL LAB HEMETOLOGY METHOD 02/23/2025 11:09 AM [facility] LAB RDW 19.9(H) 11.0 - 15.0 % LAB HEMETOLOGY METHOD 02/23/2025 11:09 AM [facility] LAB Platelets 194 130 - 400 K/mcL LAB HEMETOLOGY METHOD 02/23/2025 11:09 AM [facility] LAB MPV 9.4 7.0 - 11.0 FL LAB HEMETOLOGY METHOD 02/23/2025 11:09 AM [facility] LAB NRBC 0.0 <1.0 % LAB HEMETOLOGY METHOD 02/23/2025 11:09 AM [facility] LAB NRBC Absolute 0.00 <0.10 K/mcL LAB HEMETOLOGY METHOD 02/23/2025 11:09 AM [facility] LAB Blood Venous blood specimen / Unknown Venipuncture / Unknown 02/23/2025 6:40 AM EDT 02/23/2025 10:06 AM EDT us Lala Low MD LAB BLOOD ORDERABLES Final Resu lt [facility] LAB [address] [place] [address], * (ABNORMAL) Basic metabolic panel (02/23/2025 6:40 AM EDT) Sodium 125(L) 133 - 145 mmol/L LAB CHEMISTRY METHOD 02/23/2025 11:56 AM EDT [facility] LAB Potassium 5.2 3.5 - 5.5 mmol/L LAB CHEMISTRY METHOD 02/23/2025 11:56 AM [facility] LAB Chloride 92(L) 96 - 110 mmol/L LAB CHEMISTRY METHOD 02/23/2025 11:56 AM [facility] LAB CO2 21 21 - 32 mmol/L LAB CHEMISTRY METHOD 02/23/2025 11:56 AM [facility] LAB Anion Gap 12(H) 3 - 11 LAB CHEMISTRY METHOD 02/23/2025 11:56 AM [facility] LAB Glucose 69(L) 70 - 100 mg/dL LAB CHEMISTRY METHOD 02/23/2025 11:56 AM [facility] LAB BUN 41(H) 5 - 25 mg/dL LAB CHEMISTRY METHOD 02/23/2025 11:56 AM [facility] LAB Creatinine 1.21 0.70 - 1.30 mg/dL LAB CHEMISTRY METHOD 02/23/2025 11:56 AM [facility] LAB eGFR 62 >=60 mL/min/1. 73m2 LAB CHEMISTRY METHOD 02/23/2025 11:56 AM [facility] LAB Comment:Calculation based on the Chronic Kidney Disease Epidemiology Collaboration (CKD-EPI) equation refit without adjustment for race. BUN/Creatinine Ratio 33.9 LAB CHEMISTRY METHOD 02/23/2025 11:56 AM EDT [facility] Calcium 10.0 8.5 - 10.5 mg/dL LAB CHEMISTRY METHOD 02/23/2025 11:56 AM EDT [facility] ([facility] LAB Blood Venous blood specimen / Unknown Venipuncture / Unknown 02/23/2025 6:40 AM EDT 02/23/2025 10:06 AM EDT us Lala Low MD LAB BLOOD ORDERABLES Final Resu lt [facility] ([facility] [address] [place] [address], documented in this encounter Visit Diagnoses Diagnosis Encounter for other general examination documented in this encounter Care Teams Poly Operator Relationship Specialty Start Date End Date Felix Randle [facility] [address] [facility] [address] [place], [place] PCP - General Internal Medicine 06/24/12 documented as of this encounter
--- OUTSIDE RECORDS SUMMARY | 2025-07-07 12:55 | XMS_ITS | Encounter Summary ---
Author Organization [facility] Address [address] [place] [address] Care Team Providers Care Java Web Architect Name Role Phone Felix Randle MD Primary Care Provider [phone] Encounter Details Date Type Department Care Team (Late st Contact Info) Description 02/27/[address] [facility] - Main Lab [address] [place] [address] Lala Low MD [address] [place] [address] Encounter for other general examination Social History [...] Associated Diagnosis Comments COMPLETE BLOOD COUNT Routine 02/27/2025 6:03 AM EDT Encounter for other general examination BASIC METABOLIC PANEL Routine 02/27/2025 6:03 AM EDT Encounter for other general examination documented in this encounter Results * (ABNORMAL) Complete blood count (02/27/2025 6:03 AM EDT) WBC 7.6 4.8 - 10.8 K/[facility] LAB HEMETOLOGY METHOD 02/27/2025 11:48 AM EDT [facility] ([facility] LAB RBC 4.10(L) 4.50 - 5.50 M/mcL LAB HEMETOLOGY METHOD 02/27/2025 11:48 AM [facility] LAB Hemoglobin 11.8(L) 13.5 - 17.5 g/dL LAB HEMETOLOGY METHOD 02/27/2025 11:48 AM [facility] LAB Hematocrit 37.6(L) 42.0 - 54.0 % LAB HEMETOLOGY METHOD 02/27/2025 11:48 AM [facility] LAB MCV 91.0 79.0 - 98.0 FL LAB HEMETOLOGY METHOD 02/27/2025 11:48 AM [facility] LAB MCH 28.6 27.0 - 32.0 pcg LAB HEMETOLOGY METHOD 02/27/2025 11:48 AM [facility] LAB MCHC 31.4(L) 32.0 - 37.0 g/dL LAB HEMETOLOGY METHOD 02/27/2025 11:48 AM [facility] LAB RDW 19.4(H) 11.0 - 15.0 % LAB HEMETOLOGY METHOD 02/27/2025 11:48 AM [facility] LAB Platelets 170 130 - 400 K/mcL LAB HEMETOLOGY METHOD 02/27/2025 11:48 AM [facility] LAB MPV 9.7 7.0 - 11.0 FL LAB HEMETOLOGY METHOD 02/27/2025 11:48 AM [facility] LAB NRBC 0.0 <1.0 % LAB HEMETOLOGY METHOD 02/27/2025 11:48 AM [facility] LAB NRBC Absolute 0.00 <0.10 K/mcL LAB HEMETOLOGY METHOD 02/27/2025 11:48 AM [facility] LAB Blood Venous blood specimen / Unknown Venipuncture / Unknown 02/27/2025 6:03 AM EDT 02/27/2025 10:57 AM EDT us Lala Low MD LAB BLOOD ORDERABLES Final Resu lt [facility] LAB [address] [place] [address], * (ABNORMAL) Basic metabolic panel (02/27/2025 6:03 AM EDT) Sodium 129(L) 133 - 145 mmol/L LAB CHEMISTRY METHOD 02/27/2025 1:18 PM EDT [facility] LAB Potassium 4.4 3.5 - 5.5 mmol/L LAB CHEMISTRY METHOD 02/27/2025 1:18 PM [facility] LAB Chloride 89(L) 96 - 110 mmol/L LAB CHEMISTRY METHOD 02/27/2025 1:18 PM [facility] LAB CO2 31 21 - 32 mmol/L LAB CHEMISTRY METHOD 02/27/2025 1:18 PM [facility] LAB Anion Gap 9 3 - 11 LAB CHEMISTRY METHOD 02/27/2025 1:18 PM [facility] LAB Glucose 103(H) 70 - 100 mg/dL LAB CHEMISTRY METHOD 02/27/2025 1:18 PM [facility] LAB BUN 33(H) 5 - 25 mg/dL LAB CHEMISTRY METHOD 02/27/2025 1:18 PM [facility] LAB Creatinine 1.12 0.70 - 1.30 mg/dL LAB CHEMISTRY METHOD 02/27/2025 1:18 PM [facility] LAB eGFR 68 >=60 mL/min/1. 73m2 LAB CHEMISTRY METHOD 02/27/2025 1:18 PM [facility] LAB Comment:Calculation based on the Chronic Kidney Disease Epidemiology Collaboration (CKD-EPI) equation refit without adjustment for race. BUN/Creatinine Ratio 29.5 LAB CHEMISTRY METHOD 02/27/2025 1:18 PM [facility] LAB Calcium 9.1 8.5 - 10.5 mg/dL LAB CHEMISTRY METHOD 02/27/2025 1:18 PM EDT [facility] LAB Blood Venous blood specimen / Unknown Venipuncture / Unknown 02/27/2025 6:03 AM EDT 02/27/2025 10:57 AM EDT us Lala Low MD LAB BLOOD ORDERABLES Final Resu lt [facility] LAB [address] [place] [address], documented in this encounter Visit Diagnoses Diagnosis Encounter for other general examination documented in this encounter Care Teams Java Web Architect Relationship Specialty Start Date End Date Felix Randle MD [address] [facility] [address] [place], [place] PCP - General Internal Medicine 06/24/12 documented as of this encounter
--- OUTSIDE RECORDS SUMMARY | 2025-07-07 12:55 | XMS_ITS | Encounter Summary ---
Author Organization [facility] Address [address] [place] [phone] Phone Care Team Providers Care Sales Enablement Consultant Name Role Phone Felix Randle MD Primary Care Provider Encounter Details Date Type Department Care Team (Latest Contact Info) Description 04/13/2024 Transcribe Orders [facility] [address] [address] Re Beyer NP [address] [place] [address] Iron deficiency anemia, unspecified iron deficiency anemia type (Primary Dx) Social History Tobacco Use [...] documented as of this encounter Results * Vitamin B12 (04/13/2024 4:15 PM EDT) VITAMIN B12 791 232 - 1,245 pg/mL [facility] Blood 04/13/2024 4:15 PM EDT 04/13/2024 4:21 PM EDT Re Beyer LEGAL BILLING ANALYST LAB BLOOD ORDERABLES Roseline l Result Performing Organization Address City/[facility]/ZIP Co de Phone Number [address] [phone] * (ABNORMAL) PT-INR (04/13/2024 4:15 PM EDT) Pathologist [facility] PT 39.2(H) 10.2 - 12.9 sec [facility] INR 3.4(H) 0.9 - 1.1 [facility] Comment:Therapeutic range fo r oral Vitamin K antagonists: 2.0-3.5 Blood 04/13/2024 4:15 PM EDT 04/13/2024 4:21 PM EDT Re Beyer LEGAL BILLING ANALYST LAB BLOOD ORDERABLES Roseline l Result Performing Organization Address [facility]/ZIP Co de Phone Number [address] [address] * (ABNORMAL) Iron and iron binding capacity (04/13/2024 4:15 PM EDT) Pathologist [facility] IRON 52 45 - 160 ug/dL [facility] IRON BINDING CAPACITY 268 228 - 428 ug/dL [facility] TRANSFERRIN SATURAT. 19(L) 20 - 55 % [facility] Blood 04/13/2024 4:15 PM EDT 04/13/2024 4:21 PM EDT Re Beyer LEGAL BILLING ANALYST LAB BLOOD ORDERABLES Roseline l Result Performing Organization Address City/[facility]/ZIP Co de Phone Number [address] [address] * (ABNORMAL) Comprehensive metabolic panel (04/13/2024 4:15 PM EDT) SODIUM 137 133 - 146 mmol/L [facility] POTASSIUM 3.5 3.3 - 5.1 mmol/L [facility] CHLORIDE 99 96 - 108 mmol/L [facility] CO2 27 21 - 35 mmol/L [facility] BUN 13 6 - 19 mg/dL [facility] CREATININE 1.10 0.5 - 1.5 mg/dL [facility] GLUCOSE 120(H) 70 - 99 mg/dL [facility] ALBUMIN 4.4 3.9 - 4.8 g/dL [facility] TOTAL PROTEIN 7.0 6.5 - 8.0 g/dL [facility] CALCIUM 9.0 8.4 - 10.3 mg/dL [facility] ALKALINE PHOSPHATASE 97 39 - 117 U/L [facility] TOTAL BILIRUBIN 1.0 0.0 - 1.2 mg/dL [facility] AST 28 0 - 37 U/L [facility] ALT 12 0 - 40 U/L [facility] GLOBULIN 2.6 1 - 4.8 g/dL [facility] EGFR 70 >59 mL/min/1.7 3m2 [facility] Comment:Estimated glomerular filtration rate calculated using the CKD-EPI refit equation. ANION GAP 15 10 - 20 mmol/L [facility] Blood 04/13/2024 4:15 PM EDT 04/13/2024 4:21 PM EDT us Re Beyer LEGAL BILLING ANALYST LAB BLOOD ORDERABLES Roseline l Result [facility] [address] [place] [address] * (ABNORMAL) CBC (04/13/2024 4:15 PM EDT) WBC 5.61 4.00 - 11.00 K/uL [facility] RBC 3.12(L) 3.90 - 5.69 M/uL [facility] HGB 9.6(L) 12.4 - 17.3 g/dL [facility] HCT 30.6(L) 37.0 - 51.0 % [facility] PLT 108(L) 140 - 430 K/uL [facility] MCV 98.1(H) 78.0 - 97.0 fL [facility] MCH 30.8 25.0 - 33.0 pg [facility] MCHC 31.4(L) 32.0 - 36.0 g/dL [facility] RDW 16.2(H) 11.0 - 15.0 % [facility] MPV 10.3 8.4 - 12.8 fl [facility] Blood 04/13/2024 4:15 PM EDT 04/13/2024 4:21 PM EDT Re Beyer NP LAB BLOOD ORDERABLES Roseline l Result Performing Organization Address [facility]/ZIP Co de Phone Number [address] [phone] * Immunoglobulin A (04/13/2024 4:15 PM EDT) IgA 152 70 - 400 mg/dL [facility] Blood 04/13/2024 4:15 PM EDT 04/13/2024 4:21 PM EDT Re Beyer NP LAB BLOOD ORDERABLES Roseline l Result Performing Organization Address [facility]/ZIP Co de Phone Number [address] [address] * Tissue transglutaminase IgA (04/13/2024 4:15 PM EDT) TTG IGA ANTIBODY <1.2 <4.0 (Negative) U/[facility] [address] Blood 04/13/2024 4:15 PM EDT 04/13/2024 4:21 PM EDT Re Beyer NP LAB BLOOD ORDERABLES Roseline l Result [facility] [address] [place] [address] documented in this encounter Visit Diagnoses Diagnosis Iron deficiency anemia, unspecified iron deficiency anemia type- Primary documented in this encounter Care Teams Sales Enablement Consultant Relationship Specialty Start Date End Date Felix Randle MD [address] [place] [phone] PCP - General Internal Medicine 08/20/23 documented as of this encounter Additional Source Comments The information contained in this document represents components of the legal health record. It is not the complete legal health record.[facility]
--- OUTSIDE RECORDS SUMMARY | 2025-07-07 12:55 | XMS_ITS | Clinical Summary ---
Author Organization [address] [facility] Address [address] [place] [address] Phone Care Team Providers Care Oracle Application Consultant Name Role Phone Felix Randle MD Primary Care Provider [phone]- [phone] Encounters Date Type Department Care Team Description 06/15/2025 8:11 AM EDT - 06/15/2025 11:59 PM EDT Hospital Encounter [facility] Bone Density [address] [place] [phone] Age-related osteoporosis with current pathol fracture of vertebra, with delayed healing, subsequent encounter; Age-related osteoporosis with current pathological fracture, vertebra(e), initial encounter for fracture ([facility] V24, [facility] V28) Discharge Disposition: Home or Self Care 05/04/2025 1:24 PM EDT - 05/04/2025 11:59 PM EDT Hospital Encounter [facility] Nuclear Medicine [address] [place] [phone] Discharge Disposition: Home or Self Care 05/04/2025 10:15 AM EDT - 05/04/2025 11:59 PM EDT Hospital Encounter [facility] Nuclear Medicine [address] [place] [address] Fracture, lumbar vertebra, compression, sequela Discharge Disposition: Home or Self Care from Last 3 Months Social History Tobacco Use Types Packs/Day Years Used Date Smoking Tobacco: Never Assessed Sex and Gender Information Value Date Recorded Sex Assigned at Not on file Legal Sex Male 9:47 AM EST Gender Identity Not on file Sexual Orientation Not on file Plan of Treatment Health Maintenance Due Date Last Done Comments Hepatitis A Vaccines (1 of 2 - Risk 2-dose series) 01/29/1969 Hepatitis B Vaccines (1 of 3 - Risk 3-dose series) 2008 DTaP,Tdap,and Td Vaccines (3 - Td or Tdap) 08/03/2022 08/03/2012, 08/03/2012 Depression Screening 09/07/2024 Cholesterol Screening (Lipid Panel) 11/10/2024 Falls Risk Assessment 11/10/2024 Hepatitis C Screening 11/10/2024 Medicare Annual Wellness Visit 11/10/2024 Social Influencers of Health Screening 11/10/2024 COVID-19 Vaccine (9 - Moderna risk season) 2025 06/01/2024, 07/09/2023, 04/22/2023, Additional history exists Influenza Vaccine (#1) 2025 , 07/13/2023, 06/10/2022, Additional history exists Hypertension/CHF/CAD Annual BMP Blood Test 02/27/2026 02/27/2025, 02/24/2025, 02/23/2025, Additional history exists Zoster Vaccines Completed 09/09/2022, 06/25/2022 Pneumococcal Vaccine: 50+ Years Completed 07/27/2023, 08/06/2019, 10/17/2018 RSV Immunization Adult Patients Completed 09/24/2023 HIB Vaccines Aged Out No longer eligi ble based on patient's age to complete this topic HPV Vaccines Aged Out No longer eligi ble based on patient's age to complete this topic IPV Vaccines Aged Out No longer eligi ble based on patient's age to complete this topic MMR Vaccines Aged Out No longer eligi ble based on patient's age to complete this topic Meningococcal ACWY Vaccine Aged Out N o longer eligible based on patient's age to complete this topic Meningococcal B Vaccine Aged Out No l onger eligible based on patient's age to complete this topic RSV Immunization Patients Under 20 months Aged Out No longer eligible based on patient's age to complete this topic Varicella Vaccines Aged Out No longer eligible based on patient's age to complete this topic Procedures Procedure Name Priority Date/Time Associated Diagnosis Comments BD BONE DENSITY DXA AXIAL SKELETON Routine 06/15/2025 9:27 AM EDT Age-related osteoporosis with current pathol fracture of vertebra, with delayed healing, subsequent encounter Age-related osteoporosis with current pathological fracture, vertebra(e), initial encounter for fracture ([facility] V24, [facility] V28) NM BONE/JOINT SCAN SPECT CT Routine 05/04/2025 2:54 PM EDT Fracture, lumbar vertebra, compression, sequela BASIC METABOLIC PANEL Routine 02/27/2025 6:03 AM EDT Encounter for other general examination from Last 3 Months or Most Recently Relevant to Health Maintenance Results * BD Bone Density DXA Axial Skeleton (06/15/2025 9:27 AM EDT) Anatomical Region Laterality Modality Wrist, Hip, L-spine Bone Densito metry 06/15/2025 9:39 AM EDT Impressions 06/15/2025 9:42 AM EDT 1. Osteoporosis. 2. FRAX analysis yields a 10-year probability of major osteoporotic fracture of 15.4% and a 10-year probability of hip fracture of 7.9%. Code 98607 -------- FINAL REPORT -------- Dictated By: Navarro Ewing Dictated Date: 06/15/2025 09:39 ET Assigned Physician: Navarro Ewing Reviewed and Electronically Signed By: Navarro Ewing Signed Date: 06/15/2025 09:42 ET Workstation ID: [id number] Transcribed By: Self Edit Transcribed Date: 06/15/2025 09:39 ET Narrative 06/15/2025 9:42 AM EDT HISTORY: The patient is a 75-year-old male with clinical concern for metabolic bone disease. FINDINGS: Dual energy x-ray absorptiometry of the lumbar spine and right femur is performed. The mean bone mineral density at L1-2 is 0.787 gm/cm2 which is 66% of that of young normals and 74% of that of age matched controls. This yields a T-score of -3.4 and a Z-score of -2.3 which is diagnostic of osteoporosis. The mean bone mineral density of the right femur is 0.624 gm/cm2 which is 57% of that of young normals and 68% of that of age matched controls. This yields a T-score of -3.3 and a Z-score of -2.0 which is diagnostic of osteoporosis. Procedure Note Navarro Ewing MD - 06/15/2025 HISTORY: The patient is a 75-year-old male with clinical concern formetabolic bone disease. FINDINGS: Dual energy x-ray absorptiometry of the lumbar spine and rightfemur is performed. The mean bone mineral density at L1-2 is 0.787 gm/ek6yvfai is 66% of that of young normals and 74% of that of age matchedcontrols. This yields a T-score of -3.4 and a Z-score of -2.3 which isdiagnostic of osteoporosis. The mean bone mineral density of the right femur is 0.624 gm/cm2 which is57% of that of young normals and 68% of that of age matched controls.This yields a T-score of -3.3 and a Z-score of -2.0 which is diagnostic ofosteoporosis. IMPRESSION: 1. Osteoporosis. 2. FRAX analysis yields a 10-year probability of major osteoporoticfracture of 15.4% and a 10-year probability of hip fracture of 7.9%. Code 42317 -------- FINAL REPORT -------- Dictated By: Navarro Ewing Dictated Date: 06/15/2025 09:39 ET Assigned Physician: Navarro Ewing Reviewed and Electronically Signed By: Navarro Ewing Signed Date: 06/15/2025 09:42 ET Workstation ID: [id number] Transcribed By: Self Edit Transcribed Date: 06/15/2025 09:39 ET us Emeka Salgado MD IMG DXA PROCEDURES Final Result * NM Bone/Joint Scan Spect CT (05/04/2025 2:54 PM EDT) Anatomical Region Laterality Modality Nuclear Medicine 05/04/2025 3:50 PM EDT Impressions 05/04/2025 4:16 PM EDT 1. Subacute nondisplaced fractures of the right 6th through 12th ribs. Nondisplaced subacute fracture of the left posterolateral 11th rib. 2. Chronic nonspecific fracture of the left L3 transverse process. 3. Acute or subacute fractures of the L5, L4, T11, and T10 vertebrae. 4. Acute or subacute bilateral sacral insufficiency fractures. -------- FINAL REPORT -------- Dictated By: Kevin Merrill Dictated Date: 05/04/2025 15:50 ET Assigned Physician: Kevin Merrill Reviewed and Electronically Signed By: Kevin Merrill Signed Date: 05/04/2025 16:16 ET Workstation ID: [id number] Transcribed By: Self Edit Transcribed Date: 05/04/2025 15:50 ET Narrative 05/04/2025 4:16 PM EDT Targeted bone scan dated 04/26/2025. COMPARISON: Chest radiographs dated 11/28/2018. TECHNIQUE: Following intravenous administration of 25.6 mCi TECHNETIUM 99M and PA view of the right antecubital fossa, targeted images of the area of reported concern in the thoracolumbar spine were reviewed. Limited CT images were obtained for localization. FINDINGS: There are multiple nondisplaced fractures of the right 6th through 12th ribs and a nondisplaced fracture of the left posterolateral 11th rib. There is associated bony callus formation and radiotracer uptake, suggesting that these are subacute fractures. There are small vestigial ribs at L1. Nondisplaced fracture through the base of the left L3 transverse process. The margins are well-corticated and there is no associated radiotracer uptake, suggesting that this is chronic. Mild superior endplate fracture deformity at the L5 vertebral body. Approximately 10% associated height loss. Associated radiotracer uptake. Superior endplate deformity at L4. Maximum height loss of approximately 25%. There is associated radiotracer uptake. T11 compression fracture with approximately 50% height loss. There is associated radiotracer uptake. Superior endplate fracture at T10 with approximately 50% height loss. There is associated radiotracer uptake. Irregular sclerosis in the sacral ala consistent with bilateral sacral insufficiency fractures; these are only partially included in the [id number]-[id number] but there is associated radiotracer uptake. Incidental findings noted on CT: Linear band of scarring and/or atelectasis paralleling the right major fissure at the lung bases. Marked cardiomegaly. Pacemaker leads positioned in the right atrium and right ventricle. Severe coronary artery calcifications. Left atrial appendage occlusion device. Moderate bilateral gynecomastia. Extensive atherosclerotic calcifications of the aortoiliac system. There is a small calcification in the right renal hilum which could represent an atherosclerotic calcification or nonobstructing collecting calculus. Mild colonic fecal loading. Procedure Note Kevin Merrill MD - 05/04/2025 Targeted bone scan dated 04/26/2025. COMPARISON: Chest radiographs dated 11/28/2018. TECHNIQUE: Following intravenous administration of 25.6 mCi TECHNETIUM 99Mand PA view of the right antecubital fossa, targeted images of the area ofreported concern in the thoracolumbar spine were reviewed. Limited CTimages were obtained for localization. FINDINGS: There are multiple nondisplaced fractures of the right 6th through 12thribs and a nondisplaced fracture of the left posterolateral 11th rib.There is associated bony callus formation and radiotracer uptake,suggesting that these are subacute fractures. There are small vestigialribs at L1. Nondisplaced fracture through the base of the left L3 transverse process.The margins are well-corticated and there is no associated radiotraceruptake, suggesting that this is chronic. Mild superior endplate fracture deformity at the L5 vertebral body.Approximately 10% associated height loss. Associated radiotraceruptake. Superior endplate deformity at L4. Maximum height loss of [id number]%. There is associated radiotracer uptake. T11 compression fracture with approximately 50% height loss. There isassociated radiotracer uptake. Superior endplate fracture at T10 with approximately 50% height loss.There is associated radiotracer uptake. Irregular sclerosis in the sacral ala consistent with bilateral sacralinsufficiency fractures; these are only partially included in qobfqdln-bo-quts but there is associated radiotracer uptake. Incidental findings noted on CT: Linear band of scarring and/or atelectasis paralleling the right majorfissure at the lung bases. Marked cardiomegaly. Pacemaker leadspositioned in the right atrium and right ventricle. Severe coronaryartery calcifications. Left atrial appendage occlusion device. Moderatebilateral gynecomastia. Extensive atherosclerotic calcifications of theaortoiliac system. There is a small calcification in the right renalhilum which could represent an atherosclerotic calcification ornonobstructing collecting calculus. Mild colonic fecal loading. IMPRESSION: 1. Subacute nondisplaced fractures of the right 6th through 12th ribs.Nondisplaced subacute fracture of the left posterolateral 11th rib. 2. Chronic nonspecific fracture of the left L3 transverse process. 3. Acute or subacute fractures of the L5, L4, T11, and T10 vertebrae. 4. Acute or subacute bilateral sacral insufficiency fractures. -------- FINAL REPORT -------- Dictated By: Kevin Merrill Dictated Date: 05/04/2025 15:50 ET Assigned Physician: Kevin Merrill Reviewed and Electronically Signed By: Kevin Merrill Signed Date: 05/04/2025 16:16 ET Workstation ID: [id number] Transcribed By: Self Edit Transcribed Date: 05/04/2025 15:50 ET Emeka Salgado MD [facility] PROCEDURES Final Result * (ABNORMAL) Basic metabolic panel (02/27/2025 6:03 AM EDT) Sodium 129(L) 133 - 145 mmol/L LAB CHEMISTRY METHOD 02/27/2025 1:18 PM [facility] Potassium 4.4 3.5 - 5.5 mmol/L LAB CHEMISTRY METHOD 02/27/2025 1:18 PM [facility] Chloride 89(L) 96 - 110 mmol/L LAB CHEMISTRY METHOD 02/27/2025 1:18 PM [facility] CO2 31 21 - 32 mmol/L LAB CHEMISTRY METHOD 02/27/2025 1:18 PM [facility] Anion Gap 9 3 - 11 LAB CHEMISTRY METHOD 02/27/2025 1:18 PM [facility] Glucose 103(H) 70 - 100 mg/dL LAB CHEMISTRY METHOD 02/27/2025 1:18 PM [facility] BUN 33(H) 5 - 25 mg/dL LAB CHEMISTRY METHOD 02/27/2025 1:18 PM [facility] Creatinine 1.12 0.70 - 1.30 mg/dL LAB CHEMISTRY METHOD 02/27/2025 1:18 PM EDT [facility] eGFR 68 >=60 mL/min/1. 73m2 LAB CHEMISTRY METHOD 02/27/2025 1:18 PM EDT [facility] Comment:Calculation based on the Chronic Kidney Disease Epidemiology Collaboration (CKD-EPI) equation refit without adjustment for race. BUN/Creatinine Ratio 29.5 LAB CHEMISTRY METHOD 02/27/2025 1:18 PM EDT [facility] Calcium 9.1 8.5 - 10.5 mg/dL LAB CHEMISTRY METHOD 02/27/2025 1:18 PM EDT [facility] Blood Venous blood specimen / Unknown Venipuncture / Unknown 02/27/2025 6:03 AM EDT 02/27/2025 10:57 AM EDT us Lala Low MD LAB BLOOD ORDERABLES Final Resu lt [facility] [address] [place] [address], from Last 3 Months or Most Recently Relevant to Health Maintenance Insurance MEDICARE [facility] Care Teams Oracle Application Consultant Relationship Specialty Start Date End Date Felix Randle MD [address] [facility] [address] [place], [place] PCP - General Internal Medicine 06/24/12
--- OUTSIDE RECORDS SUMMARY | 2025-07-07 12:55 | XMS_ITS | Encounter Summary ---
Author Organization [facility] Address [address] [place] [phone] Phone Care Team Providers Care Parenting Skills Instructor Name Role Phone Felix Randle MD Primary Care Provider Encounter Details Date Type Department Care Team (Late st Contact Info) Description 03/09/2024 Procedure Pass [facility] Echo Lab [address] [place] [address] Social History Tobacco Use Types Packs/Day Years [...] Date of Assessment Author No Risk Indicated 03/09/2024 8:35 PM EDT Brittni Talamantes, JESS * Towns Suicide Severity Rating Scale (Screener/Recent Self-Report) Question Answer Date of Assessment Author 1. Wish to be (Past 1 Month) No 024 8:35 PM EDT Brittni Talamantes, RN 2. Non-Specific Active Suici nori Thoughts (Past 1 Month) No 03/09/2024 8:35 PM EDT Jennifer Talamantes cca, RN 6. Suicidal Behavior (Lifetime) No 4 8:35 PM EDT Brittni Talamantes, RN documented as of this encounter Plan of Treatment Not on file documented as of this encounter Visit Diagnoses Not on filedocumented in this encounter Care Teams Parenting Skills Instructor Relationship Specialty Start Date End Date Felix Randle MD [address] [place] [address] PCP - General Internal Medicine 08/20/23 documented as of this encounter Additional Source Comments The information contained in this document represents components of the legal health record. It is not the complete legal health record.[facility]
--- OUTSIDE RECORDS SUMMARY | 2025-07-07 12:55 | XMS_ITS | Clinical Summary ---
Author Organization [facility] Address [address] [place] [address] Care Team Providers Care Certified Art Therapist Name Role Phone Felix Randle MD [...] 05/22/2023 2:09 PM EDT Plan of Treatment Health Maintenance Due Date Last Done Comments Hepatitis C Screening 1950 Medicare AWV 01/29/1951 CT Lung Cancer Screening (Baseline) 01/29/1998 Hepatitis B Vaccines (1 of 3 - Risk 3-dose series) 2008 DTaP,Tdap,and Td Vaccines (2 - Td or Tdap) 08/03/2022 08/03/2012 RSV Vaccine (60+ years old a nd patients) (1 - 1-dose 75+ series) 01/29/2023 Alcohol/Substance Use Screening 09/07/2024 Depression Screening and Follow-Up 09/07/2024 Health Care Proxy Review 09/07/2024 Social Drivers of Health Michaela ual Screening 09/07/2024 COVID-19 Vaccine (7 - 2024-2 6 season) 2025 04/22/2023, 05/27/2022, 12/12/2021, Additional history exists Influenza Vaccine (#1) 2025 2, 06/10/2022, 06/07/2021, Additional history exists Pneumococcal Vaccine: 50+ Years Completed 9, 10/17/2018 Zoster Vaccines Completed 09/09/2022, 06/25/2022 Medical Devices Implanted Type Area Tire Mold Engraver Device Identifier Shelf Expiration Date Model / Serial / Lot Lens Intraocular Biconvex Aspheric Uv Blocking Hydrophobic Acrylic One Piece [id number] [employer]ecnis - [id number] - [id number] Implanted:Qty: 1 on 05/29/2023 by Casey Zaman MD at [facility] [employer] 11/24/2026 [id number] / [id number] / [id number] 1 Piece Acrylic Aspheric Iol Implanted:Qty: 1 on 04/17/2023 by Casey Zaman MD at [facility] [employer] 12/29/2026 [id number] 24 / [id number] / Insurance SUPP [facility] MEDICARE Advance Directives Healthcare Agents on File Name Relationship Healthcare Agent [facility] Khanh Meza Other Health Care Agent Care Teams Certified Art Therapist Relationship Specialty Start Date End Date Felix Randle MD [address] [facility] [address] [place] [address] PCP - General Internal Medicine 03/06/23
--- OUTSIDE RECORDS SUMMARY | 2025-07-07 12:55 | XMS_ITS | Encounter Summary ---
Author Organization [facility] Address [address] [place] [id number] Phone Care Team Providers Care Psych Specialist Name Role Phone Felix Randle MD Primary Care Provider Encounter Details Date Type Department Care Team (Late st Contact Info) Description 07/19/2024 Procedure Pass [facility] Endoscopy Admitting Dept Virtual Department [address] [place] [address] Social History Tobacco Use Types Packs/Day Years [...] with a working camera? Not on file Intimate Partner Violence Answer Date R ecorded Are you denied basic needs s uch as food, clothing, or medical care? No 05/18/2024 In the past 12 months have y ou been in a relationship with a person who hurts, threatens, or tries to control you? No 05/18/2024 Are you denied basic needs s uch as food, clothing, or medical care? No 05/18/2024 In the past 12 months have y ou been in a relationship with a person who hurts, threatens, or tries to control you? No 05/18/2024 Sex and Gender Information Value Date Recorded Sex Assigned at Male 09/04/2019 7:02 PM EST Legal Sex Male 5:45 PM EST Gender Identity Male 09/04/2019 7:02 PM EST Sexual Orientation Straight 05/11/2024 4: 42 PM EDT documented as of this encounter Plan of Treatment Not on file documented as of this encounter Visit Diagnoses Not on filedocumented in this encounter Care Teams Psych Specialist Relationship Specialty Start Date End Date Felix Randle MD [address] [place] [id number] PCP - General Internal Medicine 08/20/23 documented as of this encounter Additional Source Comments The information contained in this document represents components of the legal health record. It is not the complete legal health record.[facility]
--- OUTSIDE RECORDS SUMMARY | 2025-07-07 12:55 | XMS_ITS | Encounter Summary ---
Author Organization [facility] Address [address] [place] [address] Care Team Providers Care Container Washer Machine Name Role Phone Felix Randle MD Primary Care Provider [phone] Encounter Details Date Type Department Care Team (Late st Contact Info) Description 02/22/2025 Lab Requisition [facility] Lab [address] [facility] [place] [address] Lala Low MD [address] [place] [id number] Encounter for other general examination Social History [...] Procedure Name Priority Date/Time Associated Diagnosis Comments BASIC METABOLIC PANEL Routine 02/22/2025 5:34 AM EDT Encounter for other general examination documented in this encounter Results * (ABNORMAL) Basic metabolic panel (02/22/2025 5:34 AM EDT) Sodium 130(L) 133 - 145 mmol/L LAB CHEMISTRY METHOD 02/22/2025 10:50 AM EDT [facility] Potassium 4.5 3.5 - 5.5 mmol/L LAB CHEMISTRY METHOD 02/22/2025 10:50 AM EDT [facility] Chloride 89(L) 96 - 110 mmol/L LAB CHEMISTRY METHOD 02/22/2025 10:50 AM T [facility] CO2 30 21 - 32 mmol/L LAB CHEMISTRY METHOD 02/22/2025 10:50 AM [facility] Anion Gap 11 3 - 11 LAB CHEMISTRY METHOD 02/22/2025 10:50 AM [facility] Glucose 76 70 - 100 mg/dL LAB CHEMISTRY METHOD 02/22/2025 10:50 AM [facility] BUN 38(H) 5 - 25 mg/dL LAB CHEMISTRY METHOD 02/22/2025 10:50 AM [facility] Creatinine 1.14 0.70 - 1.30 mg/dL LAB CHEMISTRY METHOD 02/22/2025 10:50 AM [facility] eGFR 66 >=60 mL/min/1. 73m2 LAB CHEMISTRY METHOD 02/22/2025 10:50 AM [facility] Comment:Calculation based on the Chronic Kidney Disease Epidemiology Collaboration (CKD-EPI) equation refit without adjustment for race. BUN/Creatinine Ratio 33.3 LAB CHEMISTRY METHOD 02/22/2025 10:50 AM [facility] Calcium 9.6 8.5 - 10.5 mg/dL LAB CHEMISTRY METHOD 02/22/2025 10:50 AM [facility] Blood Venous blood specimen / Unknown Venipuncture / Unknown 02/22/2025 5:34 AM EDT 02/22/2025 9:43 AM EDT us Lala Low MD LAB BLOOD ORDERABLES Final Resu lt [facility] [address] [place] [address], documented in this encounter Visit Diagnoses Diagnosis Encounter for other general examination documented in this encounter Care Teams Container Washer Machine Relationship Specialty Start Date End Date Felix Randle MD [address] [place], [place] PCP - General Internal Medicine 06/24/12 documented as of this encounter
--- OUTSIDE RECORDS SUMMARY | 2025-07-07 12:55 | XMS_ITS | Encounter Summary ---
Author Organization [facility] Address [address] [place] [address] Care Team Providers Care Train Brakeman Name Role Phone Felix Randle MD Primary Care Provider [phone] Encounter Details Date Type Department Care Team (Late st Contact Info) Description 11/09/2024 Lab Requisition [facility] - Main Lab [address] [place] [address] Imer Taylor MD [address] [place] [address] 204 [facility] [phone] Hypo-osmolality and hyponatremia Social History Tobacco Use Types Packs/Day Years [...] Associated Diagnosis Comments COMPLETE BLOOD COUNT Routine 11/09/2024 5:15 AM EST Hypo-osmolality and hyponatremia COMPREHENSIVE METABOLIC PANEL Routine 11/09/2024 5:15 AM EST Hypo-osmolality and hyponatremia documented in this encounter Results * (ABNORMAL) Comprehensive metabolic panel (11/09/2024 5:15 AM EST) Sodium 131(L) 133 - 145 mmol/L LAB CHEMISTRY METHOD 11/09/2024 12:30 PM EST [facility] Potassium 4.3 3.5 - 5.5 mmol/L LAB CHEMISTRY METHOD 11/09/2024 12:30 PM [facility] Chloride 99 96 - 110 mmol/L LAB CHEMISTRY METHOD 11/09/2024 12:30 PM [facility] CO2 23 21 - 32 mmol/L LAB CHEMISTRY METHOD 11/09/2024 12:30 PM [facility] Anion Gap 9 3 - 11 LAB CHEMISTRY METHOD 11/09/2024 12:30 PM [facility] Glucose 98 70 - 100 mg/dL LAB CHEMISTRY METHOD 11/09/2024 12:30 PM [facility] BUN 30(H) 5 - 25 mg/dL LAB CHEMISTRY METHOD 11/09/2024 12:30 PM [facility] Creatinine 1.16 0.70 - 1.30 mg/dL LAB CHEMISTRY METHOD 11/09/2024 12:30 PM [facility] eGFR 65 >=60 mL/min/1. 73m2 LAB CHEMISTRY METHOD 11/09/2024 12:30 PM [facility] Comment:Calculation based on the Chronic Kidney Disease Epidemiology Collaboration (CKD-EPI) equation refit without adjustment for race. BUN/Creatinine Ratio 25.9 LAB CHEMISTRY METHOD 11/09/2024 12:30 PM [facility] Calcium 8.9 8.5 - 10.5 mg/dL LAB CHEMISTRY METHOD 11/09/2024 12:30 PM [facility] AST (SGOT) 31 10 - 42 unit/L LAB CHEMISTRY METHOD 11/09/2024 12:30 PM [facility] ALT (SGPT) 26 10 - 60 unit/L LAB CHEMISTRY METHOD 11/09/2024 12:30 PM [facility] Alkaline Phosphatase 93 42 - 121 unit/L LAB CHEMISTRY METHOD 11/09/2024 12:30 PM [facility] Total Protein 6.3 6.0 - 8.0 g/dL LAB CHEMISTRY METHOD 11/09/2024 12:30 PM [facility] Albumin 3.8 3.2 - 5.0 g/dL LAB CHEMISTRY METHOD 11/09/2024 12:30 PM [facility] Total Bilirubin 0.8 0.0 - 1.4 mg/dL LAB CHEMISTRY METHOD 11/09/2024 12:30 PM [facility] Blood Venous blood specimen / Unknown Venipuncture / Unknown 11/09/2024 5:15 AM EST 11/09/2024 10:46 AM EST us Imer Taylor MD LAB BLOOD ORDERABLES Final Resul t [facility] [address] [place] [address], [place] [phone] * (ABNORMAL) Complete blood count (11/09/2024 5:15 AM EST) WBC 6.9 4.8 - 10.8 K/mcL LAB HEMETOLOGY METHOD 11/09/2024 11:16 AM [facility] RBC 2.80(L) 4.50 - 5.50 M/mcL LAB HEMETOLOGY METHOD 11/09/2024 11:16 AM [facility] Hemoglobin 7.6(L) 13.5 - 17.5 g/dL LAB HEMETOLOGY METHOD 11/09/2024 11:16 AM [facility] Hematocrit 24.6(L) 42.0 - 54.0 % LAB HEMETOLOGY METHOD 11/09/2024 11:16 AM [facility] MCV 87.9 79.0 - 98.0 FL LAB HEMETOLOGY METHOD 11/09/2024 11:16 AM [facility] MCH 27.1 27.0 - 32.0 pcg LAB HEMETOLOGY METHOD 11/09/2024 11:16 AM [facility] MCHC 30.9(L) 32.0 - 37.0 g/dL LAB HEMETOLOGY METHOD 11/09/2024 11:16 AM [facility] RDW 16.8(H) 11.0 - 15.0 % LAB HEMETOLOGY METHOD 11/09/2024 11:16 AM [facility] Platelets 192 130 - 400 K/mcL LAB HEMETOLOGY METHOD 11/09/2024 11:16 AM [facility] MPV 9.8 7.0 - 11.0 FL LAB HEMETOLOGY METHOD 11/09/2024 11:16 AM [facility] NRBC 0.0 <1.0 % LAB HEMETOLOGY METHOD 11/09/2024 11:16 AM [facility] NRBC Absolute 0.00 <0.10 K/mcL LAB HEMETOLOGY METHOD 11/09/2024 11:16 AM [facility] Blood Venous blood specimen / Unknown Venipuncture / Unknown 11/09/2024 5:15 AM EST 11/09/2024 10:46 AM EST us Imer Taylor MD LAB BLOOD ORDERABLES Final Resul t [facility] [address] [place] [address], documented in this encounter Visit Diagnoses Diagnosis Hypo-osmolality and hyponatremia documented in this encounter Care Teams Train Brakeman Relationship Specialty Start Date End Date Felix Randle MD [address] [place], [place] PCP - General Internal Medicine 06/24/12 documented as of this encounter
--- OUTSIDE RECORDS SUMMARY | 2025-07-07 12:55 | XMS_ITS | Encounter Summary ---
Author Organization [facility] Address [address] [place] [address] Care Team Providers Care Organ Fixer Name Role Phone Felix Randle MD Primary Care Provider [phone] Encounter Details Date Type Department Care Team (Late st Contact Info) Description 02/20/2025 Lab Requisition [facility] - Main Lab [address] [facility] [place] [address] Lala Low MD [address] [place] [id number] Encounter for other general examination Social History [...] Associated Diagnosis Comments BASIC METABOLIC PANEL Routine 02/20/2025 5:56 AM EDT Encounter for other general examination documented in this encounter Results * (ABNORMAL) Basic metabolic panel (02/20/2025 5:56 AM EDT) Sodium 131(L) 133 - 145 mmol/L LAB CHEMISTRY METHOD 02/20/2025 11:10 AM EDT [facility] Potassium 4.8 3.5 - 5.5 mmol/L LAB CHEMISTRY METHOD 02/20/2025 11:10 AM EDT [facility] Chloride 99 96 - 110 mmol/L LAB CHEMISTRY METHOD 02/20/2025 11:[address] [facility] CO2 24 21 - 32 mmol/L LAB CHEMISTRY METHOD 02/20/2025 11:[address] [facility] Anion Gap 8 3 - 11 LAB CHEMISTRY METHOD 02/20/2025 11:[address] [facility] Glucose 100 70 - 100 mg/dL LAB CHEMISTRY METHOD 02/20/2025 11:[address] [facility] BUN 23 5 - 25 mg/dL LAB CHEMISTRY METHOD 02/20/2025 11:[address] [facility] Creatinine 0.99 0.70 - 1.30 mg/dL LAB CHEMISTRY METHOD 02/20/2025 11:[address] [facility] eGFR 78 >=60 mL/min/1. 73m2 LAB CHEMISTRY METHOD 02/20/2025 11:[address] [facility] Comment:Calculation based on the Chronic Kidney Disease Epidemiology Collaboration (CKD-EPI) equation refit without adjustment for race. BUN/Creatinine Ratio 23.2 LAB CHEMISTRY METHOD 02/20/2025 11:[address] [facility] Calcium 9.1 8.5 - 10.5 mg/dL LAB CHEMISTRY METHOD 02/20/2025 11:[address] [facility] Blood Venous blood specimen / Unknown Venipuncture / Unknown 02/20/2025 5:56 AM EDT 02/20/2025 9:16 AM EDT us Lala Low MD LAB BLOOD ORDERABLES Final Resu lt [facility] [address] [place] [address], documented in this encounter Visit Diagnoses Diagnosis Encounter for other general examination documented in this encounter Care Teams Organ Fixer Relationship Specialty Start Date End Date Felix Randle MD [address] [facility] [address] [place], [place] PCP - General Internal Medicine 06/24/12 documented as of this encounter
--- OUTSIDE RECORDS SUMMARY | 2025-07-07 12:56 | XMS_ITS | Clinical Summary ---
Author Organization [facility] Address [address] [place] [id number] Phone Care Team Providers Care Marklogic Developer Name Role Phone Felix Randle MD Primary Care Provider Allergies Active Allergy Reactions Criticality Noted Date Comments Iron Sucrose Bleeding,Hypotension High 02/24/2023 hypotension Medications ascorbic acid, vitamin C, (VITAMIN C) 500 MG tablet Take 500 mg by mouth daily. Active calcium carbonate (CALCIUM 500 ORAL) Take by mouth. Activ e ferrous sulfate 325 mg (65 mg [place] iron) tablet Take 325 mg by mouth 2 (two) times a day. Active docusate sodium (COLACE) 100 MG capsule Take 100 mg by mouth 2 (two) times a day. Active terazosin (HYTRIN) 10 MG capsule Take 10 mg by mouth nightly at bedtime. Active magnesium 250 mg Tab Take by mouth. Activ e thiamine (VITAMIN B-1, MONONITRATE,) 100 mg Tab tablet Daily, 0 Refills, Maintenance, 05/16/22 8:54:00 EDT, Partial fill upon patient request if the prescription is for a schedule II opioid drug. 2 Active tafamidis (VYNDAMAX) 61 mg Cap Take 61 mg by mouth. 3 Active nitroglycerin (NITROSTAT) 0.[address] 0.4 mg under the tongue every 5 (five) minutes as needed for chest pain. 4 Active omeprazole (PRILOSEC) 20 MG tablet Take 20 mg by mouth daily. Active torsemide (DEMADEX) 20 MG tablet Take 60 mg by mouth daily. Active JARDIANCE 10 mg tablet Take 1 tablet by mouth every morning. 4 Active potassium chloride (K-TAB) 20 mEq TbER ER tablet Take 1 tablet by mouth every morning. 4 Active simvastatin (ZOCOR) 40 MG tablet Take 20 mg by mouth every morning. 4 Active metOLazone (ZAROXOLYN) 2.5 MG tablet Take 1 tablet (2.5 mg total) by mouth 3 (three) times a week. 4 Active spironolactone (ALDACTONE) 25 MG tablet Take 2 tablets (50 mg total) by mouth daily. 4 Active Active Problems Problem Noted Date Diagnosed Date Warfarin anticoagulation 05/20/2024 History of difficult intubation 03/12/2024 Acute exacerbation of CHF (congestive heart fail ure) 03/09/2024 Assessment & Plan (05/19/2024 4:52 PM EDT): -Patient reports worsening dyspnea on exertion, worsening lower extremity edema, increased weight gain from his baseline of 175 pounds up to 189 pounds -He was previously on torsemide 100 mg daily, spironolactone 25 mg daily, and metolazone 2.5 mg twice a week however due to electrolyte abnormalities his torsemide was decreased to 60 mg daily and metolazone decreased to once per week which he took 05/17 -He is followed by [facility] heart failure service Dr Leonard -He was hospitalized here in March also for CHF exacerbation and TTE at that time showed EF 58% -BNP 4998 similar to prior admission, -CXR shows moderate right and small left pleural effusions - here: lasix 60 mg IV bid, Dr. Unger recommends transition to torsemide 60 mg daily with metolazone 3x weekly - replacing potassium, increase spironolactone -Closely monitor I/Os and daily weights -Continue jardiance Assessment & Plan (03/11/2024 10:27 AM EDT): In the setting of known cardiac amyloidosis. Followed at [facility]. Significant weight gain over the last several weeks of at least 20 lbs, unresponsive to increased outpatient diuretic regimen (100 mg torsemide daily, metolazone 2x/week, spironolactone daily). Appreciate cardiology recommendations which include transfusion of 1 unit of PRBCs now and high dose IV furosemide 80 mg twice daily Will monitor weight and urine output closely, patient's dry weight is around 178 LB's, 183 LB's today Will continue home metoprolol and lisinopril with hold parameters TTE repeated yesterday showing EF of 58% CAD (coronary artery disease) 03/09/2024 Assessment & Plan (05/18/2024 4:28 PM EDT): -Continue statin -Denies any chest pain -Troponin elevated but flat 129, 124 Cardiac amyloidosis 03/09/2024 Assessment & Plan (05/19/2024 4:54 PM EDT): -Patient is on tafamidis which is nonformulary - resume if brought in Assessment & Plan (03/11/2024 10:29 AM EDT): Secondary to cardiac amyloidosis. He is followed primarily by Dr. Leonard and has been for many years. He has had less involvement with the specialty cardiology practice at [facility]. He is on tafamidis, ordered as nonformulary with patient supplying his own medication Chronic back pain 03/09/2024 Cirrhosis of liver 03/09/2024 Assessment & Plan (03/10/2024 9:49 AM EDT): History of his cirrhosis is not entirely clear. Remote history of alcohol use disorder. Could also have an element of congestive hepatopathy. He does have thrombocytopenia. LFTs unremarkable CHF (congestive heart failure) 03/09/2024 Hemoptysis 03/09/2024 Assessment & Plan (05/19/2024 4:55 PM EDT): -He was very recently hospitalized at [facility] 05/13 - 05/14 for evaluation of hemoptysis and had a negative bronchoscopy -h/h stable -Warfarin was initially reversed but restarted upon discharge - 05/19 - hemoptysis, hold warfarin while waiting to see if further episodes - INR slightly subtherapeutic - pulmonary consult, currently respiratory status is reassuring Medication induced coagulopathy 03/09/2024 Right inguinal hernia 03/09/2024 S/P laryngectomy 03/09/2024 Stage 3a chronic kidney disease 03/09/2024 Overview (03/09/2024): Per chart review meeting GFR criteria Acute on chronic anemia 10/18/2018 Assessment & Plan (03/10/2024 9:48 AM EDT): Prior CBC from 6 months ago showed a hemoglobin of 11, now around 8. He has not noticed bleeding or dark stools. Received a unit of PRBC on 03/09, Hb improved appropriately to 9.1 Fit test ordered, continue to hold Coumadin with daily INR monitoring Epistaxis 10/18/2018 Hypotension, unspecified 10/18/2018 Assessment & Plan (03/11/2024 10:29 AM EDT): Initial systolic BP in the ED in the 70s. Based on his presentation with signs and symptoms of CHF exacerbation, concerning for potential cardiogenic shock. Fortunately, his BP has since improved without intervention Hyperlipidemia, unspecified 10/18/2018 Other dysphagia 10/18/2018 Unspecified abnormalities of gait and mobility 0 10/18/2018 Acquired absence of larynx 10/06/2018 Atrial fibrillation 10/06/2018 Assessment & Plan (05/19/2024 4:56 PM EDT): -Heart rate is currently controlled -It does not appear that he is currently on digoxin (this is not on his [facility] discharge list however it was mentioned in their notes that he takes this 3 times a week) unclear if he is still on Toprol-XL - holding anticoagulation b/c of bleeding Assessment & Plan (03/11/2024 10:28 AM EDT): EKG on arrival is a ventricular paced rhythm. He is on metoprolol and warfarin. His INR has been supratherapeutic in the hospital, awaiting morning labs from today for warfarin dosing Chronic obstructive pulmonary disease, unspecifi ed 10/06/2018 Gastro-esophageal reflux disease without esophag itis 10/06/2018 H/O primary malignant neoplasm of larynx 019 Essential (primary) hypertension 10/06/2018 Assessment & Plan (05/18/2024 4:30 PM EDT): -Blood pressures currently well-controlled, continue diuretics -Unclear if he is still on lisinopril/Toprol-XL Tracheostomy status 10/06/2018 Resolved Problems Problem Noted Date Diagnosed Date Resolved Date Fever 03/10/2024 05/20/2024 Assessment & Plan (03/10/2024 10:25 AM EDT): Patient noted to have a fever of 101.1 overnight on 03/10 with no recurrence, likely equipment malfunction Inflammatory markers with procalcitonin normal, no leukocytosis Will hold off on antibiotics for now Family History Medical History Relation Comments Heart failure Mother Relation Status Comments Mother Social History Tobacco Use Types Packs/Day Years [...] ecorded Are you denied basic needs s [facility] as food, clothing, or medical care? No 05/18/2024 In the past 12 months have y ou been in a relationship with a person who hurts, threatens, or tries to control you? No 05/18/2024 Are you denied basic needs s [facility] as food, clothing, or medical care? No [...] Orientation Straight 05/11/2024 4: 42 PM EDT Last Filed Vital Signs Vital Sign Reading Time Taken Comments Blood Pressure 109/55 05/20/2024 1:22 PM EDT Pulse 76 05/20/2024 1:22 PM EDT Temperature 36.4 C (97.6 F) 05/20/2024 1:22 PM EDT Respiratory Rate 20 05/20/2024 1:22 PM EDT Oxygen Saturation 96% 05/20/2024 1:22 PM EDT Inhaled Oxygen Concentration - - Weight 79.6 kg (175 lb 8 oz) 05/20/2024 3:32 AM EDT Height 182.9 cm (6') 05/18/2024 11:35 AM EDT Body Mass Index 23.8 05/18/2024 11:35 AM EDT Plan of Treatment Health Maintenance Due Date Last Done Comments BLOOD PRESSURE 1948 DEPRESSION SCREENING 1960 SMOKING Hx and SMOKELESS TOBACCO SCREENING 01/29/1961 HEPATITIS C SCREENING 01/29/1966 LIPID PANEL 01/29/1966 HEPATITIS A VACCINES (1 of 2 - Risk 2-dose series) 01/29/1967 Adult Td,Tdap Booster 08/03/2022 08/03/2012 INFLUENZA VACCINE (#1) 2025 , 07/13/2023, 06/10/2022, Additional history exists COVID-19 VACCINE ( season) 2025 06/01/2024, 07/09/2023, 04/22/2023, Additional history exists POTASSIUM LEVEL 05/20/2025 05/20/2024, 05/08, 05/18/2024, Additional history exists ZOSTER VACCINES Completed 09/09/2022, 06/25/2022 PNEUMOCOCCAL VACCINES (50+ years) Completed 07/27/2023, 08/06/2019 RSV VACCINE Completed 09/24/2023 HIB VACCINES Aged Out No longer eligi ble based on patient's age to complete this topic MENINGOCOCCAL VACCINES (ACWY) Aged Out No longer eligible based on patient's age to complete this topic MENINGOCOCCAL VACCINES (B) Aged Out N o longer eligible based on patient's age to complete this topic Medical Devices Not on file Procedures Procedure Name Priority Date/Time Associated Diagnosis Comments BASIC METABOLIC PANEL Routine 05/20/2024 6:40 AM EDT from Last 3 Months or Most Recently Relevant to Health Maintenance Results * Basic metabolic panel (05/20/2024 6:40 AM EDT) SODIUM 136 133 - 146 mmol/L [facility] CHLORIDE 98 96 - 108 mmol/L [facility] POTASSIUM 3.6 3.3 - 5.1 mmol/L [facility] CO2 27 21 - 35 mmol/L [facility] BUN 14 6 - 19 mg/dL [facility] CREATININE 1.20 0.5 - 1.5 mg/dL [facility] GLUCOSE 92 70 - 99 mg/dL [facility] CALCIUM 9.0 8.4 - 10.3 mg/dL [facility] EGFR 63 >59 mL/min/1.7 3m2 [facility] Comment:Estimated glomerular filtration rate calculated using the CKD-EPI refit equation. ANION GAP 15 10 - 20 mmol/L [facility] Blood 05/20/2024 6:40 AM EDT 05/20/2024 6:48 AM EDT us Mary Lentz MD LAB BLOOD ORDERABLES Final Result [facility] [address] [place], [place] [id number] from Last 3 Months or Most Recently Relevant to Health Maintenance Insurance MEDICARE PART A & B [facility] MEDICARE SUPPLEMENT MEDICARE PART A & B [facility] MEDICARE SUPPLEMENT MEDICARE PART A & B [facility] MEDICARE SUPPLEMENT MEDICARE PART A & B [facility] MEDICARE SUPPLEMENT MEDICARE PART A & B [facility] MEDICARE SUPPLEMENT MEDICARE PART A & B [facility] MEDICARE SUPPLEMENT MEDICARE PART A & B MEDICARE SUPPLEMENT MEDICARE PART A & B MEDICARE SUPPLEMENT MEDICARE PART A & B [facility] MEDICARE SUPPLEMENT Advance Directives For more information, please contact: [phone] (9AM - 5PM [facility], Thursday-Thursday) Documents on File Type Date Recorded 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 05/23/2024 3:08 PM * Full Code (Latest Code Status on File) Date Activated Date Inactivated Comments 05/18/2024 4:14 PM Question Answer Comments Code Status Confirmed With: Patient * Full Code Date Activated Date Inactivated Comments 03/09/2024 7:08 PM 05/18/2024 4:14 PM Question Answer Comments Code Status Confirmed With: Patient Care Teams Marklogic Developer Relationship Specialty Start Date End Date Felix Randle MD [address] [place], [place] [phone] PCP - General Internal Medicine 08/20/23 Additional Source Comments The information contained in this document represents components of the legal health record. It is not the complete legal health record.[facility]
[2025-07-07 13:34] LABS: Appearance Urine Clear; Glucose Urine UA 250 mg/dL (Negative); PH 6.0 (5.0-9.0); Specific Gravity - Urine <= 1.005 (1.005-1.025); UMIC TRIGGER UA YES
== END 2025-07-07 11:21 | disposition home or self-care (01) ==
LOC: HO.HMGCLDS 11:20
PROVIDERS: PCP Internal Medicine; Visit Provider Urology
DX: R39.9 Unspecified symptoms and signs involving the genitourinary system (principal)
CPT/HCPCS: 81001; 87086; 87088; 87186

== ENCOUNTER 2025-07-12 10:46 | Outpatient (AMB) | payer MEDICARE, SELFPAY ==
--- NOTE | 2025-07-12 10:52 | MHC.OFFVIS ---
Intake Visit Reasons: 1y/PVR Intake Note: Patient is present for 1Y PVR Urology Med: Terazosin Antibiotic Allergy: None Blood Thinner: None PVR: 176ml Pharmaceutical Specialty Representative Required: No Accompanied by: Self / Same As Patient Allergies No Known Allergies (No Known Allergies*) Allergy (Verified 07/12/25 10:57) HPI Comments Details: Mr. Sanket Little is a very pleasant male. He is a patient of Dr. Randle. He is here for further evaluation of the following urologic conditions. 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 Has had fluid status management issues. Has been on and off high-dose torsimide and admitted to the hospital. Discussed fluid balance. Aim for 48 oz per day. 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 Urination doing well with terazosin 10mg ? Laboratory investigations include?a total PSA evaluation ?05/25 1.0 on 5AR, 05/26 2.6 off 5AR, 05/27 1.9, 05/28 2.4, 05/29 1.9, 05/30 1.2, 06/30 0.8 ? Individualized Prostate Cancer Risk Calculator?< 5% high risk.? His prior IPSS was?mild.? Therapeutic plan will be?continued surveillance. 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 Mother History of hypertension Son No problems noted. Son No problems noted. Daughter No problems noted. 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 Patient Tobacco Use Status: Former Tobacco user Advance Directives Date on File: 02/17/25 service: No Review of Systems Const Denies chills and Denies fever(s) Card Reports no additional complaints and Denies syncope Resp Denies cough GI Denies abdominal pain and Denies heartburn Reports as per HPI and Denies change in libido Neuro Denies syncope Psych Denies change in libido Endo Denies change in libido Physical Exam Const General: cooperative, healthy appearing, comfortable and no acute distress Orientation/consciousness: patient oriented x3 HEENT Face and sinus: Yes normal facial exam Mouth: moist mucous membranes Neck Neck: Yes normal visual inspection, Yes full ROM and Yes trachea midline Chest Chest palpation & inspection: normal inspection of the chest Resp Effort & Inspection: normal respiratory effort, able to speak in complete sentences and no respiratory distress GI Inspection: Yes normal to inspection Back/Spine/Pelvis Cervical Spine: normal cervical lordosis Thoracic/Lumbar Spine: thoracic and lumbar spine normal to inspection Skin General skin exam: no rashes or lesions noted Neuro General: patient oriented x3, gait normal, tone normal and moves all extremities Extrem General: Yes normal to inspection and Yes capillary refill normal Office Procedures Post Void Residual Post Residual Void Post Void Residual (PVR): [id number] Void Residual by ultrasound Results AMB Urinalysis, Automated UA Leukoctes 0 [place]/uL Last Edit by ENRIQUE Watson on 07/12/25 11:09 UA Nitrite Negative Last Edit by ENRIQUE Watson on 07/12/25 11:09 UA Urobilinogen 0.2 mg/dL Last Edit by ENRIQUE Watson on 07/12/25 11:09 UA Protein 0 mg/dL Last Edit by Anjali Maxwell, RMA on 07/12/25 11:09 UA pH 6.0 Last Edit by Anjali Maxwell, RMA on 07/12/25 11:09 UA Blood 0 [place]/uL Last Edit by Anjali Maxwell, RMA on 07/12/25 11:09 UA Specific [place] 1.010 Last Edit by Anjali Maxwell, RMA on 07/12/25 11:09 UA Ketone Negative Last Edit by Anjali Maxwell, RMA on 07/12/25 11:09 UA Bilirubin 0 mg/dL Last Edit by Anjali Maxwell, RMA on 07/12/25 11:09 UA Glucose 1000 mg/dL Last Edit by Anjali Maxwell, RMA on 07/12/25 11:09 Assessment & Plan Assessment & Plan (1) Epididymo-orchitis: Code(s): N45.3 - Epididymo-orchitis Category: Medical Plan One month follow-up Orders: Orders AMB Post Void Residual by ultrasound Today N40.0 - Benign prostatic hyperplasia without lower urinary tract symptoms AMB Urinalysis Automated Today Z13.9 - Encounter for screening, unspecified US scrotum Today N43.3 - Hydrocele, unspecified, N45.3 - Epididymo-orchitis Medications: New sulfamethoxazole-trimethoprim 800-160 mg (Bactrim DS) 1 tab PO BID 28 tabs 0RF 14 days N45.3 - Epididymo-orchitis Discontinued nitrofurantoin monohyd/m-cryst 100 mg (Macrobid) must administer with a meal/food Discontinued Reason: Patient Completed Course 100 mg PO BID 7 days 14 caps 0RF Patient Instructions: This note is constructed using voice recognition software. While every effort has been made to ensure accuracy jewel bearing polisher errors may have been included. Imaging studies, laboratory and physical exam results were discussed and reviewed in detail. No major barriers to patient understanding were identified. An opportunity to ask questions regarding the treatment plan was provided. All questions were answered. The patient expressed understanding and agreement with the above treatment plan. The patient is aware they should contact our office by phone for worsening of their current condition or the appearance of new urologic symptoms. Compliance is encouraged with any medications and followup testing that is ordered. It is a privilege to participate in the urologic care of your patient. If you have any questions or concerns regarding treatment for the above conditions, or other urologic issues, please do not hesitate to contact me. The office telephone contact is [phone]. Sincerely, Dr Lawrence Roberts MD, DEAN[facility] - Urology Compassionate Specialist Care for the Genitourinary System Coding Level of Care Code Est Pt Level 4 (32081) Complex EM visit Add On G2211 Diagnoses Epididymo-orchitis N45.3 CPT Codes Post Residual Void - PVR CPT Code: 87892-Srqx Void Residual by ultrasound ([id number])
--- OUTSIDE RECORDS SUMMARY | 2025-07-12 12:36 | XMS_ITS | Clinical Summary ---
Author Organization [facility] Address [address] [place] [address] Care Team Providers Care End User Support Specialist Name Role Phone Felix Randle MD [...] 09/09/2022, 06/25/2022 Medical Devices Implanted Type Area Assistant Professor Of German Device Identifier Shelf Expiration Date Model / Serial / Lot Lens Intraocular Biconvex Aspheric Uv Blocking Hydrophobic Acrylic One Piece [id number] [employer] - [id number] - [id number] Implanted:Qty: 1 on 05/29/2023 by Casey Zaman MD at [facility] [employer] 11/24/2026 [id number] / [id number] / [id number] 1 Piece Acrylic Aspheric Iol Implanted:Qty: 1 on 04/17/2023 by Casey Zaman MD at [facility] [employer] 12/29/2026 [id number] 24 / [id number] / Insurance SUPP [facility] MEDICARE Advance Directives Healthcare Agents on File Name Relationship Healthcare Agent [facility] Khanh Meza Other Health Care Agent Care Teams End User Support Specialist Relationship Specialty Start Date End Date Felix Randle MD [address] [facility] [address] [place] [address] PCP - General Internal Medicine 03/06/23
--- OUTSIDE RECORDS SUMMARY | 2025-07-12 12:36 | XMS_ITS | Encounter Summary ---
Author Organization [facility] Address [address] [place] [id number] Phone Care Team Providers Care Executive Personal Assistant Name Role Phone Felix Randle MD Primary Care Provider Encounter Details Date Type Department Care Team (Late st Contact Info) Description 08/20/2023 Procedure [facility], Ct Scan - [address] [address] Social History Tobacco Use Types Packs/Day Years [...] 08/20/2023 6:33 PM EST Jerica Delarosa * [place] Suicide Severity Rating Scale (Screener/Recent Self-Report) Question [...] on filedocumented in this encounter Care Teams Executive Personal Assistant Relationship Specialty Start Date End Date Felix Randle MD [address] [place] [address] PCP - General Internal Medicine 08/20/23 documented as of this encounter Additional Source Comments The information contained in this document represents components of the legal health record. It is not the complete legal health record.[facility]
--- OUTSIDE RECORDS SUMMARY | 2025-07-12 12:36 | XMS_ITS | Encounter Summary ---
Author Organization [facility] Address [address] [place] [address] Care Team Providers Care Bracelet Former Name Role Phone Felix Randle MD Primary Care Provider [phone] Encounter Details Date Type Department Care Team (Late st Contact Info) Description 02/24/2025 Lab Requisition [facility] - Main Lab [address] [facility] [place] [address] Lala Low MD [address] [place] [id number] Encounter for other general examination Social History [...] LAB CHEMISTRY METHOD 02/24/2025 10:[address] [facility] Blood Venous blood specimen / Unknown Venipuncture / Unknown 02/24/2025 5:30 AM EDT 02/24/2025 9:41 AM EDT us Lala Low MD LAB BLOOD ORDERABLES Final Resu lt [facility] [address] [place] [address], [place] [phone] * (ABNORMAL) Basic metabolic panel (02/24/2025 5:30 AM EDT) Sodium 130(L) 133 - 145 mmol/L LAB CHEMISTRY METHOD 02/24/2025 10:28 AM [facility] Potassium 3.9 3.5 - 5.5 mmol/L LAB CHEMISTRY METHOD 02/24/2025 10:28 AM [facility] Chloride 93(L) 96 - 110 mmol/L LAB CHEMISTRY METHOD 02/24/2025 10:28 AM [facility] CO2 27 21 - 32 mmol/L LAB CHEMISTRY METHOD 02/24/2025 10:28 AM [facility] Anion Gap 10 3 - 11 LAB CHEMISTRY METHOD 02/24/2025 10:28 AM [facility] Glucose 94 70 - 100 mg/dL LAB CHEMISTRY METHOD 02/24/2025 10:28 AM [facility] BUN 39(H) 5 - 25 mg/dL LAB CHEMISTRY METHOD 02/24/2025 10:28 AM [facility] Creatinine 1.12 0.70 - 1.30 mg/dL LAB CHEMISTRY METHOD 02/24/2025 10:28 AM [facility] eGFR 68 >=60 mL/min/1. 73m2 LAB CHEMISTRY METHOD 02/24/2025 10:28 AM [facility] Comment:Calculation based on the Chronic Kidney Disease Epidemiology Collaboration (CKD-EPI) equation refit without adjustment for race. BUN/Creatinine Ratio 34.8 LAB CHEMISTRY METHOD 02/24/2025 10:28 AM EDT [facility] Calcium 8.4(L) 8.5 - 10.5 mg/dL LAB CHEMISTRY METHOD 02/24/2025 10:28 AM EDT [facility] Blood Venous blood specimen / Unknown Venipuncture / Unknown 02/24/2025 5:30 AM EDT 02/24/2025 9:41 AM EDT us Lala Low MD LAB BLOOD ORDERABLES Final Resu lt [facility] [address] [place] [address], documented in this encounter Visit Diagnoses Diagnosis Encounter for other general examination documented in this encounter Care Teams Bracelet Former Relationship Specialty Start Date End Date Felix Randle MD [address] [facility] [address] [place], [place] PCP - General Internal Medicine 06/24/12 documented as of this encounter
--- OUTSIDE RECORDS SUMMARY | 2025-07-12 12:36 | XMS_ITS | Data Portability ---
Author Organization [place] - [facility], Allergy Address [address] [address] Care Team Providers Care Hand Trucker Name Role Phone GUSTAVO GOLDSMITH OTHER Assessment Encounter Date Assessment Date Assessment LastModified by Organization Details LastModified Time 09/13/2024 09/13/2024 Patient's audiogram shows bilateral moderate sensorineural hearing loss with well maintained speech discrimination. There is enough hearing loss to affect day-to-day hearing performance. We discussed in detail the pros and cons of amplification (hearing aids). Patient would like to learn more about this option so we will set them up for a hearing aid evaluation. Patient is medically cleared for amplification bilaterally. [email or web address] Not available 09/13/2024 16:15:40 11/16/2024 11/16/2024 No evidence of disease on examination today. Fiberoptic examination of nasopharynx, hypopharynx and larynx was stable. Cancer surveillance in 6 months was recommended. Discussed his hemoptysis and the importance of humidification of his airways [email or web address] Not available 11/16/2024 15:49:02 12/09/2024 12/09/2024 Patient status post laryngectomy with difficulty swallowing due to sensation of sore throat and pain in the mid chest. I discussed with the patient that his symptoms are esophageal and may represent esophagitis versus esophageal stricture. He had normal scope on 11/16/[address] Yanez. I have ordered esophagram and recommended that he establish with gastroenterology. He is not ill appearing in the office today. If he is able to take small sips I have recommended that he drink his protein shakes to get adequate nutrition. If his symptoms worsen and he is unable to stay hydrated I have recommended that he present to the emergency room. Case discussed with Dr. Pearson. 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 Esophageal dilation or stretching may be considered if narrowing is identified. The patient has a history of rib fractures, vertebral compression fractures, and a fusion procedure in the lower back. He uses a crutch for mobility and reports significant limitations in his daily activities. The patient is advised to prepare for the winter season by using humidification patches and ensuring his humidifier is ready for use to manage respiratory comfort. The patient is encouraged to increase caloric intake to address recent weight loss. Follow-up is recommended in the fall next year unless new issues arise. [email or web address] Not available 05/19/2025 16:01:21 Plan of Treatment Reminders Order Date Submit Date Provider Last Modified By Organization Details Last Modified Time Details Appointments [facility] 15 2024 01:45P Inez YANEZ MD Not available Not available Not available [facility] 15 2025 09:15A Inez YANEZ MD Not available Not available Not available Lab None record ed. Referral None record ed. Procedures None record ed. Surgeries None record ed. Imaging XR, mindya ai 2024 025 [facility], [address] [place], [address], 12/09/2024 10:06:21 Medication Orders None record ed. Patient TargetsNo targets recorded. Patient Instructions Encounter Date Encounter Id Patient Instructions Last Modified By Organization Details Last Modified Time 05/19/2025 [id number] Prepare for winter by using humidification patches and ensuring the humidifier is ready for use. Increase caloric intake to address recent weight loss. Follow-up in the fall unless new issues arise. [email or web address] Not available 05/19/2025 16:00:35 Please note: Par ts of this encounter note have been generated by AI based on audio conversation. Patient consent was required prior to utilizing this technology. Content review was required prior to finalizing the note. [email or web address] Not available 05/19/2025 16:00:35 Reason for Referral None Reported. Results Created Date Observation Date Name Description Value Unit Range Abnormal Flag Note LastModifiedBy Organization Detail LastModifiedTime 09/14/19 25 audio gram No observ ation record ed. BARCODE Not Available 2024 11:01:42 Result Notes None recorded. 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 Tobacco abuse; Note: Date Diagnosed : 08/07/2014 1:24 PM (305.1) Not Available [facility] 4 02:50:45 Difficult y speaking Active 2014 Hoarsenes s; Note: Date Diagnosed : 01/12/2015 5:28 PM (784.49) Not Available [facility] 4 02:50:47 Deviated nasal septum 714848763 Active 2014 Nasal septal deviation ; Note: Date Diagnosed : 08/07/2014 1:24 PM (470) ; Start Date : 4 Deviate d nasal septum; Note: Date Diagnosed : 03/02/2015 1:09 PM (J34.2) [mapped from ICD9 code: 470] Not Available [facility] 4 02:50:47 Finding of resonance of voice 913437955 Active 2014 Other voice and resonance disorders ; Note: Date Diagnosed : 03/02/2015 1:09 PM (R49.8) [mapped from ICD9 code: 784.49] Not Available [facility] 4 02:50:41 Tobacco dependenc e caused by cigarette s [id number] 462442 Active 2014 Nicotine dependenc e, cigarette s, uncomplic ated; Note: Date Diagnosed : 03/02/2015 1:09 PM (F17.210) [mapped from ICD9 code: 305.1] Not Available [facility] 4 02:50:43 Edema of larynx 76485827 Active 2014 Laryngeal edema; Note: Date Diagnosed : 08/07/2014 1:24 PM (478.6) ; Start Date : 4 Edema of larynx; Note: Date Diagnosed : 03/02/2015 1:09 PM (J38.4) [mapped from ICD9 code: 478.6] Not Available [facility] 4 02:50:46 Sensorine ural hearing loss of bilateral ears 007555374 Active 2014 Sensorine ural hearing loss, bilateral ; Note: Date Diagnosed : 5 2:42 PM (H90.3) Not Available [facility] 4 02:50:42 Neoplasm of uncertain behavior of larynx 99205671 Active 2015 Neoplasm of uncertain behavior of larynx; Note: Date Diagnosed : 03/20/2016 9:08 AM (D38.0) Not Available [facility] 4 02:50:43 Dysphonia 03237482 Active 2016 Hoarsenes s; Note: Date Diagnosed : 09/24/2016 9:16 AM (R49.0) Not Available [facility] 4 02:50:47 Disorder of vocal cord 39391566 Active 2016 Leukoplak ia of vocal cords; Note: Date Diagnosed : 10/16/2016 11:47 AM (J38.3) Not Available [facility] 4 02:50:45 Lesion of oral mucosa 72756082929 22707 Active 2016 Other lesions of oral mucosa; Note: Date Diagnosed : 06/01/2017 2:12 PM (K13.79) Not Available [facility] 4 02:50:48 Malignant neoplasm of larynx 703306316 Active 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, unspecifi ed; Note: Date Diagnosed : 8 2:33 PM (C32.9) Not Available [facility] 4 02:50:44 Bleeding from nose 805452037 Active 2018 Epistaxis ; Note: Date Diagnosed : 10/20/2018 9:07 AM (R04.0) Not Available [facility] 4 02:50:43 Tracheost chuckie hemorrhag e 40336516 Active 2018 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; Note: Date Diagnosed : 11/23/2018 2:21 PM (J95.01) Not Available [facility] 4 02:50:42 Impacted cerumen of bilateral ears 33677515688 36857 Active 2018 Impacted cerumen, bilateral ; Note: Date Diagnosed : 02/24/2019 3:34 PM (H61.23) Impacte d cerumen, bilateral ; Note: Date Diagnosed : 12/05/2016 3:29 PM (H61.23) ; Start Date : 7 Not Available [facility] 4 02:50:46 Follow-up visit Active 2018 Encounter for follow-up examinati on after completed treatment for malignant neoplasm; Note: Date Diagnosed : 9 4:14 PM (Z08) Encount er for follow-up examinati on after completed treatment for condition s other than malignant neoplasm; Note: Date Diagnosed : 10/12/2018 2:03 PM (Z09) ; Start Date : 9 Not Available [facility] 4 02:50:48 History of malignant neoplasm of larynx 372956302 Active 2018 Primary tumor location: right supraglot tic Tumor staging: T1aN0 SCCA Treatment : Laryngect chuckie and RT Date of treatment completio n: Surgery 09/29/18, RT 12/2003 Oncology team: Beau Samaniego MD [address] [place] [address], [facility] RAHAT zaragoza, [address] [facility] - [facility] 5 09:20:31 Hemoptysi s 20498963 Active 2021 Hemoptysi s; Note: Date Diagnosed : 12/12/2021 9:19 AM (R04.2) Not Available [facility] 4 02:50:44 Tinnitus of left ear 59780176738 06 Active 2023 Tinnitus, left ear; Note: Date Diagnosed : 11/17/2023 2:35 PM (H93.12) Not Available [facility] 4 02:50:44 Dysphagia 16208039 Active 2024 Tanisha pollack [place] - [facility] 5 17:35:00 Problem Notes None recorded. Procedures Surgical History Date Name Laterality Status Provider Name and Address Organization Details Recorded Time 05/19/2025 Nasopharyng oscopy_DP completed BENIGNO YANEZ MD [address] [facility],[place] [address], [place], [address], [place] - [facility] 05/18/2025 21:29:00 11/16/2024 Nasopharyng oscopy_DP completed BENIGNO YANEZ MD [address] [facility],[place] [address], [place], [address], [facility] - [facility] 11/16/2024 15:46:18 09/13/2024 Comp Audio with Tymps - 29614 & 21212 completed DAYAN ALCALA [address] [facility],[place] [address], [place], [address], [place] - [facility] 09/13/2024 15:32:20 Imaging Results None recorded. Procedure Notes None recorded. Medical Equipment None Reported. Allergies No known drug allergies Medications Name Sig Start Date Stop Date Status Note LastModified by Organization Details LastModified Time Prescript ion - Prior Authoriza tion Request active Script Copy/Kathy or Auth^Scr ipt Copy/Kathy or Auth_ Not Available Not Available Not Available metolazon e 2.5 mg tablet TAKE 1/2 TABLET BY MOUTH TODAY ONLY THEN ON ADVISED BY HF CLINIC FOR ELEVATED FOR PAIN.A. PRESSURE S active Not Available Not Available No t Available clotrimaz ole 10 mg addison DISSOLVE 1 ADDISON BY MOUTH 5 TIMES A DAY active Not Available Not Available No t Available nystatin 100,000 unit/mL oral suspensio n SWISH AND SWALLOW 6 ML BY MOUTH FOUR TIMES A DAY FOR 7 DAYS 05/19 completed Not Available Not Available Not Available torsemide 20 mg tablet TAKE ONE TABLET BY MOUTH EVERY DAY active Not Available Not Available No t Available hydrocodo ne 5 mg-acetam inophen 325 mg tablet TAKE ONE TABLET BY MOUTH FOUR TIMES A DAY NEEDED FOR SEVERE PAIN active Not Available Not Available No t Available fluconazo le 200 mg tablet TAKE 1 TABLET BY MOUTH EVERY DAY FOR 14 DAYS 05/19 completed Not Available Not Available Not Available atenolol 25 mg tablet 01/05 completed Medicati on ID: [id number] Du ration Value: 30 Brand Name: atenolol Send Method: E-Prescr ibed Sub s Allowed: subs OK Medic ationGen ericName : atenolol Not Available Not Available Not Available acetazola mide 250 mg tablet TAKE 2 TABLETS BY MOUTH EVERY THURSDAY AND THURSDAY active Not Available Not Available No t Available torsemide 10 mg tablet 01/05 completed Medicati on ID: [id number] D uration Value: 30 Brand Name: torsemid e Send Method: E-Prescr ibed Sub s Allowed: subs OK Medic ationGen ericName : torsemid e Not Available Not Available Not Available clopidogr el 75 mg tablet TAKE ONE TABLET BY MOUTH EVERY DAY active Not Available Not Available No t Available digoxin 250 mcg (0.25 mg) tablet 09/13 completed Medicati on ID: [id number] B rand Name: digoxin Send Method: E-Prescr ibed Sub s Allowed: subs OK Medic ationGen ericName : digoxin Not Available Not Available Not Available tramadol 50 mg tablet TAKE ONE TABLET BY MOUTH EVERY 6 HOURS NEEDED FOR MODERATE PAIN active Not Available Not Available No t Available acetamino phen 500 mg tablet TAKE ONE TABLET BY MOUTH AT LEAST ONE HOUR BEFORE IRON INFUSION ON 12/27/24 active Not Available Not Available No t Available spironola ctone 25 mg tablet TAKE 2 TABLETS BY MOUTH EVERY DAY active Not Available Not Available No t Available simvastat in 40 mg tablet TAKE ONE TABLET BY MOUTH EVERY DAY active Not Available Not Available No t Available famotidin e 20 mg tablet TAKE ONE TABLET BY MOUTH AT LEAST ONE HOUR PRIOR TO IRON INFUSION ON 12/27/24 active Not Available Not Available No t Available tamsulosi n 0.4 mg capsule 01/05 completed Medicati on ID: [id number] Du ration Value: 30 Brand Name: tamsulos in Send Method: E-Prescr ibed Sub s Allowed: subs OK Medic ationGen ericName : tamsulos in Not Available Not Available Not Available baclofen 10 mg tablet START BY TAKING 1/2 TABLET BY MOUTH ONCE DAILY AT BEDTIME AND CAN INCREASE TO A FULL TABLET AT BEDTIME IF NEEDED active Not Available Not Available No t Available cephalexi n 500 mg capsule TAKE ONE CAPSULE BY MOUTH THREE TIMES A DAY WITH FOOD AND A GLASS OF WATER X 5 DAYS 09/13 completed Not Available Not Available Not Available pantopraz ole 40 mg tablet,de layed release TAKE ONE TABLET BY MOUTH EVERY DAY active Not Available Not Available No t Available ferrous sulfate 325 mg (65 mg iron) tablet 11/16 completed Medicati on ID: [id number] D uration Value: 60 Brand Name: ferrous sulfate Send Method: E-Prescr ibed Sub s Allowed: subs OK Speci al Instruct ion: TAKE ONE TABLET BY MOUTH TWICE A DAY Medi cationGe nericNam e: ferrous sulfate Not Available Not Available Not Available Banophen 25 mg tablet TAKE 1 TABLET BY MOUTH AT LEAST 1 HOUR PRIOR TO IRON INFUSION ON 12/27 completed Not Available Not Available Not Available lidocaine 5 % topical patch APPLY 1 PATCH TO PAINFUL AREA ONCE DAILY MAY WEAR UP TO 12 HOURS) active Not Available Not Available No t Available nitroglyc jimbo 0.4 mg sublingua l tablet DISSOLVE 1 TABLET UNDER THE TONGUE EVERY 5 MINUTES FOR CHEST DISCOMFO RT. IF TAKING 3 IN A ROW, CALL FOR AMBULANC E active Not Available Not Available No t Available docusate sodium 100 mg capsule TAKE ONE CAPSULE BY MOUTH TWICE A DAY NEEDED FOR CONSTIPA TION active Not Available Not Available No t Available omeprazol e 20 mg capsule,d elayed release TAKE 1 CAPSULE BY MOUTH DAILY active Not Available Not Available No t Available metoprolo l succinate ER 25 mg tablet,ex tended release 24 hr 09/13 completed Medicati on ID: [id number] B rand Name: metoprol ol succinat e Send Method: E-Prescr ibed Sub s Allowed: subs OK Medic ationGen ericName : metoprol ol succinat e Not Available Not Available Not Available ferrous sulfate 325 mg (65 mg iron) tablet,de layed release TAKE ONE TABLET BY MOUTH TWICE A DAY active Not Available Not Available No t Available sodium chloride 0.9 % for nebulizat ion INHALE 5ML VIA NEBULIZE R FOUR TIMES A DAY FOR TRACHEOS RICH HUMIDIFI CATION 09/13 completed Not Available Not Available Not Available lisinopri l 2.5 mg tablet 09/13 completed Medicati on ID: [id number] B rand Name: lisinopr il Send Method: E-Prescr ibed Sub s Allowed: subs OK Medic ationGen ericName : lisinopr il Not Available Not Available Not Available terazosin 10 mg capsule TAKE ONE CAPSULE BY MOUTH EVERY DAY active Not Available Not Available No t Available finasteri de 5 mg tablet 01/05 completed Medicati on ID: [id number] D uration Value: 90 Brand Name: finaster nam Send Method: E-Prescr ibed Sub s Allowed: subs OK Speci al Instruct ion: TAKE 1 TABLET BY MOUTH ONCE A DAY. Med icationG enericNa me: finaster nam Not Available Not Available Not Available naproxen 500 mg tablet TAKE ONE TABLET BY MOUTH EVERY 12 HOURS IF NEEDED FOR PAIN. MAX OF 2 TABLETS PER DAY active Not Available Not Available No t Available spironola ctone 50 mg tablet TAKE ONE TABLET BY MOUTH EVERY DAY active Not Available Not Available No t Available oxycodone 5 mg tablet TAKE 1 TABLET EVERY 6 HOURS FOR SEVERE PAIN ONLY NEEDED active Not Available Not Available No t Available Jantoven 1 mg tablet TAKE ONE TABLET BY MOUTH EVERY DAY DIRECTED BY COUMADIN CLINIC 09/13 completed Not Available Not Available Not Available Jantoven 5 mg tablet TAKE 1-2 TABLETS BY MOUTH ONCE DAILY PER PROTOCOL active Not Available Not Available No t Available nitrofura ntoin monohydra te/macroc rystals 100 mg capsule TAKE ONE CAPSULE BY MOUTH TWICE A DAY ; MUST ADMINIST ER WITH A MEAL / FOOD active Not Available Not Available No t Available lactulose 10 gram/15 mL oral solution TAKE 15 ML 1 TABLESPO ONFUL) BY MOUTH DAILY active Not Available Not Available No t Available pregabali n 75 mg capsule TAKE ONE CAPSULE BY MOUTH TWICE A DAY active Not Available Not Available No t Available Senna with Docusate Sodium 8.6 mg-50 mg tablet 09/24 completed Medicati on ID: [id number] Du ration Value: 20 Reason: () Brand Name: Senna with Docusate Sodium S end Method: E-Prescr ibed Sub s Allowed: subs OK Medic ationGen ericName : Senna with Docusate Sodium Not Available Not Available Not Available hydrochlo rothiazid e 12.5 mg tablet TAKE ONE TABLET BY MOUTH EVERY DAY active Not Available Not Available No t Available oxycodone 10 mg tablet 01/05 completed Medicati on ID: [id number] Du ration Value: 5 Brand Name: oxycodon e Send Method: E-Prescr ibed Sub s Allowed: subs OK Medic ationGen ericName : oxycodon e Not Available Not Available Not Available tolvaptan 30 mg tablet TAKE ONE TABLET BY MOUTH EVERY DAY active Not Available Not Available No t Available potassium chloride ER 20 mEq tablet,ex tended release TAKE ONE TABLET BY MOUTH EVERY DAY 09/13 completed Not Available Not Available Not Available Jardiance 10 mg tablet TAKE ONE TABLET BY MOUTH EVERY DAY IN THE MORNING active Not Available Not Available No t Available Vyndamax 61 mg capsule active Not Available Not Available Not Available Vitals Date Recorded Body height Body mass index (BMI) Body weight Provider Name and Address Organization Details Last Updated DateTime 09/13/2024 185.42 cm 19.8 kg/m2 52027.86 g Nathalia Medel [place] - [facility] [place] 09/13/2024 15:47:28 Date Recorded Body height Provider Name an d Address Organization Details Last Updated DateTime 11/16/2024 185.42 cm TORSTEN JUDD [place] - [facility] [place] 11/16/2024 15:25:59 Date Recorded Body height Provider Name an d Address Organization Details Last Updated DateTime 05/19/2025 185.42 cm Karma Patel [address] [place] [address], [address], [place] - [facility] 05/19/2025 14:58:11 Date Recorded Body mass index (BMI) Body weight Provider Name and Address Organization Details Last Updated DateTime 05/19/2025 17.7 kg/m2 98768.38 g TORSTEN JUDD [place] - [facility] 05/19/2025 15:57:01 Social History None recorded. Functional Status None recorded. Mental Status None recorded. Family History Nothing Reported. Medical History No medical history recorded. Past Encounters Encounter ID Performer Location Encounter Start Date Encounter Closed Date Diagnosis/Indication Diagnosis SNOMED-CT Code Diagnosis ICD10 Code Diagnosis IMO Codes Diagnosis Note [id number] BENIGNO YANEZ MD [facility] [address] [place] [address] 09/13/2024 15:20:32 09/13/2024 16:23:25 Sensorineural hearing loss of bilateral ears 023787677 H90.3 History of malignant neoplasm of larynx 626804975 Z85.21 cancer surveillan ce in November 2024 [id number] DAYAN ALCALA [facility] [address] [address] 09/13/2024 15:32:00 09/14/2024 07:35:34 Sensorineural hearing loss of bilateral ears 941051775 H90.3 Right Ear:Normal hearing through 500 Hz sloping to a moderate SNHL with good speech discrimina tion.Type A tympanogra m.Left Ear:Normal hearing through 1.5K Hz sloping to a moderate SNHL with good speech discrimina tion.MIX CHEMIST [id number] BENIGNO YANEZ MD [facility] [address] [address] 11/16/2024 14:54:26 11/16/2024 15:51:35 History of malignant neoplasm of larynx 179784220 Z85.21 [id number] TANISHA GRIDER PA-C [facility] [address] [address] 12/09/2024 08:55:54 12/09/2024 10:06:21 Malignant neoplasm of larynx 443649081 C32.9 Dysphagia 75578588 R13.1 0 [id number] BENIGNO YANEZ MD [facility] [address] [address] 05/19/2025 14:48:43 05/19/2025 16:02:52 Malignant neoplasm of larynx 368425384 C32.9 nasopharyn x exam was benign Dysphagia 08766657 R13.1 0 Health Concerns Section Related Observation LastModified by Organization Detai ls LastModified Time None Recorded Concern Status LastModified by Organization Details LastModified Time None Recorded Advance Directives Directive None Recorded Payers Insurance Date Sequence Insurance Name Policy Number Policy López Covered Member ID López Member ID Guarantor Name 07/08/2025 1 [place]ICARE [place]: [employer] Sanket Little [id number] Sanket Little 07/08/2025 2 [employer] (MEDICARE SUPPLEMENT) Sanket Little [id number] Sanket Little Notes Date Note Type Note Provider Name and Address Organization Details Recorded Time 09/13/2024 text/html ROS as noted in the HPI Primary tumor location: right supraglotticTumor staging: T1aN0 SCCATreatment: Laryngectomy and RTDate of treatment completion: Surgery 09/29/18, RT 12/2003Oncology team: Beau Samaniego airbag deploy from [facility] mid Aug. since that time he was not hearing bells from telephone, microwave, alarms as welltinnitus is mostly resolved PV 11/17/23 Beau Left tinnitus, resolved prior to visit BENIGNO YANEZ MD [address] [facility],[address], [address], [place] - [facility] 09/13/2024 16:18:57 11/16/2024 text/html ROS as noted in the HPI Primary tumor location: right supraglotticTumor staging: T1aN0 SCCATreatment: Laryngectomy and RTDate of treatment completion: Surgery 09/29/18, RT 12/2003Oncology team: Beau Samaniego after watchman was converted from coumadin to plavix and ASA. was admitted to [facility] for hemoptysis. identified a pulmonary bleed the clots were removed with bronchoscopy. PV 09/13/24 Beau audio B mod SNHL - HAE BENIGNO YANEZ MD [address] [facility],[address], [address], [place] [facility] 11/16/2024 15:49:08 12/09/2024 text/html ROS as noted in the HPI 74 year old male patient of Dr. Yanez status post laryngectomy 2019 presents reporting that on Thursday morning he woke up and felt like he had a sore throat. It became harder to swallow all day long. He can swallow liquids if takes very small sips. He feels like everything gets stuck as he points to the middle of his chest. He has a burning sensation in the mid chest. He was just seen by Dr. Yanez on 11/16/24 and fiberoptic examination of nasopharynx, hypopharynx and larynx was stable. PV:Primary tumor location: right supraglotticTumor staging: T1aN0 SCCATreatment: Laryngectomy and RTDate of treatment completion: Surgery 09/29/18, RT 12/2003Oncology team: Beau Samaniegoafter watchman was converted from coumadin to plavix and ASA.was admitted to [facility] for hemoptysis. identified a pulmonary bleed the clots were removed with bronchoscopy.PV 09/13/24 Beau audio B carlito PEARSON MD [address] [facility],[address], [address], [place] - [facility] 12/12/2024 12:53:42 05/19/2025 text/html Primary tumor location: right supraglottic Tumor staging: T1aN0 SCCA Treatment: Laryngectomy and RT Date of treatment completion: Surgery 09/29/18, RT 12/2003 Oncology team: Beau Samaniego after watchman was converted from coumadin to plavix and ASA. was admitted to [facility] for hemoptysis. identified a pulmonary bleed the clots were removed with bronchoscopy. PV 09/13/24 Beau audio B carlito BARRERA Sanket Little is a 75-year-old male who presents for evaluation of swallowing difficulties and back pain. He reports a history of abdominal surgery, which has resulted in difficulty swallowing liquids. He describes challenges with swallowing liquids but notes that swallowing solid food is less problematic. He has undergone radiation therapy in the past, which may have contributed to fibrosis and weakened swallowing muscles. Additionally, he has a history of rib fractures, compression fractures in his vertebrae, and a fusion procedure in the lower back. He uses a crutch for mobility due to his back issues. He is a cancer survivor, 21 years post-radiation therapy and six years post-laryngectomy. He also mentions experiencing hemoptysis in the past, which has since resolved. He has lost weight recently and is unable to perform his part-time job due to his health challenges. BENIGNO YANEZ MD [address] [facility],[address], [address], [place] - [facility] 05/19/2025 16:01:46
--- OUTSIDE RECORDS SUMMARY | 2025-07-12 12:36 | XMS_ITS | Encounter Summary ---
Author Organization [facility] Address [address] [place] [address] Care Team Providers Care Hvac Estimator Name Role Phone Felix Randle MD Primary Care Provider [phone] [phone] Encounter Details Date Type Department Care Team (Late st Contact Info) Description 02/23/2025 Lab Requisition [facility] - Main Lab [address] [place] [address] Lala Low MD [address] [place] [address] Encounter for other general examination Social History [...] AM EDT) WBC 10.5 4.8 - 10.8 K/[facility] LAB HEMETOLOGY METHOD 02/23/2025 11:09 AM EDT [facility] ([facility] LAB RBC 4.10(L) 4.50 - 5.50 M/mcL LAB HEMETOLOGY METHOD 02/23/2025 11:09 AM [facility] LAB Hemoglobin 11.8(L) 13.5 - 17.5 g/dL LAB HEMETOLOGY METHOD 02/23/2025 11:09 AM [facility] LAB Hematocrit 37.3(L) 42.0 - 54.0 % LAB HEMETOLOGY METHOD 02/23/2025 11:09 AM [facility] LAB MCV 91.9 79.0 - 98.0 FL LAB HEMETOLOGY METHOD 02/23/2025 11:09 AM [facility] LAB MCH 29.1 27.0 - 32.0 pcg LAB HEMETOLOGY METHOD 02/23/2025 11:09 AM [facility] LAB MCHC 31.6(L) 32.0 - 37.0 g/dL LAB HEMETOLOGY METHOD 02/23/2025 11:09 AM [facility] LAB RDW 19.9(H) 11.0 - 15.0 % LAB HEMETOLOGY METHOD 02/23/2025 11:09 AM [facility] LAB Platelets 194 130 - 400 K/mcL LAB HEMETOLOGY METHOD 02/23/2025 11:09 AM [facility] LAB MPV 9.4 7.0 - 11.0 FL LAB HEMETOLOGY METHOD 02/23/2025 11:09 AM [facility] LAB NRBC 0.0 <1.0 % LAB HEMETOLOGY METHOD 02/23/2025 11:09 AM [facility] LAB NRBC Absolute 0.00 <0.10 K/mcL LAB HEMETOLOGY METHOD 02/23/2025 11:09 AM [facility] LAB Blood Venous blood specimen / Unknown Venipuncture / Unknown 02/23/2025 6:40 AM EDT 02/23/2025 10:06 AM EDT us Lala Low MD LAB BLOOD ORDERABLES Final Resu lt [facility] [address] [place] [address], * (ABNORMAL) Basic metabolic panel (02/23/2025 6:40 AM EDT) Sodium 125(L) 133 - 145 mmol/L LAB CHEMISTRY METHOD 02/23/2025 11:[address] [facility] LAB Potassium 5.2 3.5 - 5.5 mmol/L LAB CHEMISTRY METHOD 02/23/2025 11:56 AM [facility] LAB Chloride 92(L) 96 - 110 mmol/L LAB CHEMISTRY METHOD 02/23/2025 11:56 AM [facility] LAB CO2 21 21 - 32 mmol/L LAB CHEMISTRY METHOD 02/23/2025 11:56 AM [facility] LAB Anion Gap 12(H) 3 - 11 LAB CHEMISTRY METHOD 02/23/2025 11:56 AM [facility] LAB Glucose 69(L) 70 - 100 mg/dL LAB CHEMISTRY METHOD 02/23/2025 11:56 AM [facility] LAB BUN 41(H) 5 - 25 mg/dL LAB CHEMISTRY METHOD 02/23/2025 11:56 AM [facility] LAB Creatinine 1.21 0.70 - 1.30 mg/dL LAB CHEMISTRY METHOD 02/23/2025 11:56 AM [facility] LAB eGFR 62 >=60 mL/min/1. 73m2 LAB CHEMISTRY METHOD 02/23/2025 11:56 AM [facility] LAB Comment:Calculation based on the Chronic Kidney Disease Epidemiology Collaboration (CKD-EPI) equation refit without adjustment for race. BUN/Creatinine Ratio 33.9 LAB CHEMISTRY METHOD 02/23/2025 11:56 AM EDT [facility] Calcium 10.0 8.5 - 10.5 mg/dL LAB CHEMISTRY METHOD 02/23/2025 11:56 AM EDT [facility] ([facility]) [facility] LAB Blood Venous blood specimen / Unknown Venipuncture / Unknown 02/23/2025 6:40 AM EDT 02/23/2025 10:06 AM EDT us Lala Low MD LAB BLOOD ORDERABLES Final Resu lt [facility] ([facility]) [facility] LAB [address] [place] [address], documented in this encounter Visit Diagnoses Diagnosis Encounter for other general examination documented in this encounter Care Teams Hvac Estimator Relationship Specialty Start Date End Date Felix Randle MD [facility] [address] [place], [place] PCP - General Internal Medicine 06/24/12 documented as of this encounter
--- OUTSIDE RECORDS SUMMARY | 2025-07-12 12:36 | XMS_ITS | Encounter Summary ---
Author Organization [facility] Address [address] [place] [address] Care Team Providers Care Bight Maker Name Role Phone Felix Randle MD Primary Care Provider [phone] Encounter Details Date Type Department Care Team (Late st Contact Info) Description 02/22/2025 Lab Requisition [facility] Lab [address] [facility] [place] [address] Lala Low MD [address] [place] [address] Encounter for other general examination Social History [...] LAB CHEMISTRY METHOD 02/22/2025 10:50 AM EDT [facility] LAB Potassium 4.5 3.5 - 5.5 mmol/L LAB CHEMISTRY METHOD 02/22/2025 10:50 AM EDT [facility] LAB Chloride 89(L) 96 - 110 mmol/L LAB CHEMISTRY METHOD 02/22/2025 10:50 AM T [facility] LAB CO2 30 21 - 32 mmol/L LAB CHEMISTRY METHOD 02/22/2025 10:50 AM [facility] LAB Anion Gap 11 3 - 11 LAB CHEMISTRY METHOD 02/22/2025 10:50 AM [facility] LAB Glucose 76 70 - 100 mg/dL LAB CHEMISTRY METHOD 02/22/2025 10:50 AM [facility] LAB BUN 38(H) 5 - 25 mg/dL LAB CHEMISTRY METHOD 02/22/2025 10:50 AM [facility] LAB Creatinine 1.14 0.70 - 1.30 mg/dL LAB CHEMISTRY METHOD 02/22/2025 10:50 AM [facility] LAB eGFR 66 >=60 mL/min/1. 73m2 LAB CHEMISTRY METHOD 02/22/2025 10:50 AM [facility] LAB Comment:Calculation based on the Chronic Kidney Disease Epidemiology Collaboration (CKD-EPI) equation refit without adjustment for race. BUN/Creatinine Ratio 33.3 LAB CHEMISTRY METHOD 02/22/2025 10:50 AM [facility] LAB Calcium 9.6 8.5 - 10.5 mg/dL LAB CHEMISTRY METHOD 02/22/2025 10:50 AM [facility] LAB Blood Venous blood specimen / Unknown Venipuncture / Unknown 02/22/2025 5:34 AM EDT 02/22/2025 9:43 AM EDT us Lala Low MD LAB BLOOD ORDERABLES Final Resu lt [facility] LAB [address] [place] [address], documented in this encounter Visit Diagnoses Diagnosis Encounter for other general examination documented in this encounter Care Teams Bight Maker Relationship Specialty Start Date End Date Felix Randle MD [address] [place], [place] PCP - General Internal Medicine 06/24/12 documented as of this encounter
--- OUTSIDE RECORDS SUMMARY | 2025-07-12 12:36 | XMS_ITS | Encounter Summary ---
Author Organization [facility] Address [address] [place] [address] Care Team Providers Care Keyboard Instrument Repairer Name Role Phone Felix Randle MD Primary Care Provider [phone] Encounter Details Date Type Department Care Team (Late st Contact Info) Description 02/27/2025 Lab Requisition [facility] - Main Lab [address] [place] [address] Lala Low MD [address] [place] [address] Encounter for other general examination Social History [...] AM EDT) WBC 7.6 4.8 - 10.8 K/[facility] LAB HEMETOLOGY METHOD 02/27/2025 11:48 AM EDT [facility] ([facility] LAB RBC 4.10(L) 4.50 - 5.50 M/mcL LAB HEMETOLOGY METHOD 02/27/2025 11:48 AM [facility] LAB Hemoglobin 11.8(L) 13.5 - 17.5 g/dL LAB HEMETOLOGY METHOD 02/27/2025 11:48 AM [facility] LAB Hematocrit 37.6(L) 42.0 - 54.0 % LAB HEMETOLOGY METHOD 02/27/2025 11:48 AM [facility] LAB MCV 91.0 79.0 - 98.0 FL LAB HEMETOLOGY METHOD 02/27/2025 11:48 AM [facility] LAB MCH 28.6 27.0 - 32.0 pcg LAB HEMETOLOGY METHOD 02/27/2025 11:48 AM [facility] LAB MCHC 31.4(L) 32.0 - 37.0 g/dL LAB HEMETOLOGY METHOD 02/27/2025 11:48 AM [facility] LAB RDW 19.4(H) 11.0 - 15.0 % LAB HEMETOLOGY METHOD 02/27/2025 11:48 AM [facility] LAB Platelets 170 130 - 400 K/mcL LAB HEMETOLOGY METHOD 02/27/2025 11:48 AM [facility] LAB MPV 9.7 7.0 - 11.0 FL LAB HEMETOLOGY METHOD 02/27/2025 11:48 AM [facility] LAB NRBC 0.0 <1.0 % LAB HEMETOLOGY METHOD 02/27/2025 11:48 AM [facility] LAB NRBC Absolute 0.00 <0.10 K/mcL LAB HEMETOLOGY METHOD 02/27/2025 11:48 AM [facility] LAB Blood Venous blood specimen / Unknown Venipuncture / Unknown 02/27/2025 6:03 AM EDT 02/27/2025 10:57 AM EDT us Lala Low MD LAB BLOOD ORDERABLES Final Resu lt [facility] [address] [place] [address], * (ABNORMAL) Basic metabolic panel (02/27/2025 6:03 AM EDT) Sodium 129(L) 133 - 145 mmol/L LAB CHEMISTRY METHOD 02/27/2025 1:18 PM EDT [facility] LAB Potassium 4.4 3.5 - 5.5 mmol/L LAB CHEMISTRY METHOD 02/27/2025 1:18 PM [facility] LAB Chloride 89(L) 96 - 110 mmol/L LAB CHEMISTRY METHOD 02/27/2025 1:18 PM [facility] LAB CO2 31 21 - 32 mmol/L LAB CHEMISTRY METHOD 02/27/2025 1:18 PM [facility] LAB Anion Gap 9 3 - 11 LAB CHEMISTRY METHOD 02/27/2025 1:18 PM [facility] LAB Glucose 103(H) 70 - 100 mg/dL LAB CHEMISTRY METHOD 02/27/2025 1:18 PM [facility] LAB BUN 33(H) 5 - 25 mg/dL LAB CHEMISTRY METHOD 02/27/2025 1:18 PM [facility] LAB Creatinine 1.12 0.70 - 1.30 mg/dL LAB CHEMISTRY METHOD 02/27/2025 1:18 PM [facility] LAB eGFR 68 >=60 mL/min/1. 73m2 LAB CHEMISTRY METHOD 02/27/2025 1:18 PM [facility] LAB Comment:Calculation based on the Chronic Kidney Disease Epidemiology Collaboration (CKD-EPI) equation refit without adjustment for race. BUN/Creatinine Ratio 29.5 LAB CHEMISTRY METHOD 02/27/2025 1:18 PM [facility] LAB Calcium 9.1 8.5 - 10.5 mg/dL LAB CHEMISTRY METHOD 02/27/2025 1:18 PM EDT [facility] LAB Blood Venous blood specimen / Unknown Venipuncture / Unknown 02/27/2025 6:03 AM EDT 02/27/2025 10:57 AM EDT us Lala Low MD LAB BLOOD ORDERABLES Final Resu lt [facility] [address] [place] [address], documented in this encounter Visit Diagnoses Diagnosis Encounter for other general examination documented in this encounter Care Teams Keyboard Instrument Repairer Relationship Specialty Start Date End Date Felix Randle MD 100 [facility] [address] [place], [place] PCP - General Internal Medicine 06/24/12 documented as of this encounter
--- OUTSIDE RECORDS SUMMARY | 2025-07-12 12:37 | XMS_ITS | Encounter Summary ---
Author Organization [facility] Address [address] [place] [address] Care Team Providers Care Hardscape Foreman Name Role Phone Felix Randle MD Primary Care Provider [phone] [phone] Encounter Details Date Type Department Care Team (Late st Contact Info) Description 11/09/2024 Lab Requisition [facility] - Main Lab [address] [place] [address] Imer Taylor MD [address] [place] [address] 204 [facility] [address] Hypo-osmolality and hyponatremia Social History [...] LAB CHEMISTRY METHOD 11/09/2024 12:30 PM EST [facility] LAB Potassium 4.3 3.5 - 5.5 mmol/L LAB CHEMISTRY METHOD 11/09/2024 12:[address] [facility] Chloride 99 96 - 110 mmol/L LAB CHEMISTRY METHOD 11/09/2024 12:[address] [facility] CO2 23 21 - 32 mmol/L LAB CHEMISTRY METHOD 11/09/2024 12:[address] [facility] Anion Gap 9 3 - 11 LAB CHEMISTRY METHOD 11/09/2024 12:[address] [facility] Glucose 98 70 - 100 mg/dL LAB CHEMISTRY METHOD 11/09/2024 12:[address] [facility] BUN 30(H) 5 - 25 mg/dL LAB CHEMISTRY METHOD 11/09/2024 12:[address] [facility] Creatinine 1.16 0.70 - 1.30 mg/dL LAB CHEMISTRY METHOD 11/09/2024 12:[address] [facility] LAB eGFR 65 >=60 mL/min/1. 73m2 LAB CHEMISTRY METHOD 11/09/2024 12:[address] [facility] LAB Comment:Calculation based on the Chronic Kidney Disease Epidemiology Collaboration (CKD-EPI) equation refit without adjustment for race. BUN/Creatinine Ratio 25.9 LAB CHEMISTRY METHOD 11/09/2024 12:[address] [facility] Calcium 8.9 8.5 - 10.5 mg/dL LAB CHEMISTRY METHOD 11/09/2024 12:[address] [facility] AST (SGOT) 31 10 - 42 unit/L LAB CHEMISTRY METHOD 11/09/2024 12:[address] [facility] ALT (SGPT) 26 10 - 60 unit/L LAB CHEMISTRY METHOD 11/09/2024 12:[address] [facility] Alkaline Phosphatase 93 42 - 121 unit/L LAB CHEMISTRY METHOD 11/09/2024 12:[address] [facility] Total Protein 6.3 6.0 - 8.0 g/dL LAB CHEMISTRY METHOD 11/09/2024 12:[address] [facility] Albumin 3.8 3.2 - 5.0 g/dL LAB CHEMISTRY METHOD 11/09/2024 12:[address] [facility] Total Bilirubin 0.8 0.0 - 1.4 mg/dL LAB CHEMISTRY METHOD 11/09/2024 12:[address] [facility] Blood Venous blood specimen / Unknown Venipuncture / Unknown 11/09/2024 5:15 AM EST 11/09/2024 10:46 AM EST us Imer Taylor MD LAB BLOOD ORDERABLES Final Resul t [facility] [address] [place] [address], [place] [phone] * (ABNORMAL) Complete blood count (11/09/2024 5:15 AM EST) WBC 6.9 4.8 - 10.8 K/mcL LAB HEMETOLOGY METHOD 11/09/2024 11:[address] [facility] RBC 2.80(L) 4.50 - 5.50 M/mcL LAB HEMETOLOGY METHOD 11/09/2024 11:[address] [facility] Hemoglobin 7.6(L) 13.5 - 17.5 g/dL LAB HEMETOLOGY METHOD 11/09/2024 11:[address] [facility] Hematocrit 24.6(L) 42.0 - 54.0 % LAB HEMETOLOGY METHOD 11/09/2024 11:[address] [facility] MCV 87.9 79.0 - 98.0 FL LAB HEMETOLOGY METHOD 11/09/2024 11:[address] [facility] MCH 27.1 27.0 - 32.0 pcg LAB HEMETOLOGY METHOD 11/09/2024 11:[address] [facility] MCHC 30.9(L) 32.0 - 37.0 g/dL LAB HEMETOLOGY METHOD 11/09/2024 11:[address] [facility] RDW 16.8(H) 11.0 - 15.0 % LAB HEMETOLOGY METHOD 11/09/2024 11:[address] [facility] Platelets 192 130 - 400 K/mcL LAB HEMETOLOGY METHOD 11/09/2024 11:[address] [facility] MPV 9.8 7.0 - 11.0 FL LAB HEMETOLOGY METHOD 11/09/2024 11:[address] [facility] NRBC 0.0 <1.0 % LAB HEMETOLOGY METHOD 11/09/2024 11:[address] [facility] NRBC Absolute 0.00 <0.10 K/mcL LAB HEMETOLOGY METHOD 11/09/2024 11:[address] [facility] Blood Venous blood specimen / Unknown Venipuncture / Unknown 11/09/2024 5:15 AM EST 11/09/2024 10:46 AM EST us Imer Taylor MD LAB BLOOD ORDERABLES Final Resul t [facility] [address] [place] [address], documented in this encounter Visit Diagnoses Diagnosis Hypo-osmolality and hyponatremia documented in this encounter Care Teams Hardscape Foreman Relationship Specialty Start Date End Date Felix Randle MD [address] [place], [place] PCP - General Internal Medicine 06/24/12 documented as of this encounter
--- OUTSIDE RECORDS SUMMARY | 2025-07-12 12:37 | XMS_ITS | Encounter Summary ---
Author Organization [facility] Address [address] [place] [address] Care Team Providers Care Leaf Conditioner Helper Name Role Phone Felix Randle MD Primary Care Provider +1 [phone] Encounter Details Date Type Department Care Team (Late st Contact Info) Description 02/18/2025 Lab Requisition [facility] - Main Lab [address] [facility] [email or web address] [address] Lala Low MD [address] [place] [address] Encounter for other general examination Social History [...] CBC auto differential (02/18/2025 5:51 AM EDT) [facility] WBC 6.0 4.8 - 10.8 K/mcL LAB HEMETOLOGY METHOD 02/18/2025 12:19 PM [facility] LAB RBC 3.80(L) 4.50 - 5.50 M/mcL LAB HEMETOLOGY METHOD 02/18/2025 12:19 PM [facility] LAB Hemoglobin 11.0(L) 13.5 - 17.5 g/dL LAB HEMETOLOGY METHOD 02/18/2025 12:19 PM [facility] LAB Hematocrit 35.6(L) 42.0 - 54.0 % LAB HEMETOLOGY METHOD 02/18/2025 12:19 PM [facility] LAB MCV 93.7 79.0 - 98.0 FL LAB HEMETOLOGY METHOD 02/18/2025 12:19 PM [facility] LAB MCH 28.9 27.0 - 32.0 pcg LAB HEMETOLOGY METHOD 02/18/2025 12:19 PM [facility] LAB MCHC 30.9(L) 32.0 - 37.0 g/dL LAB HEMETOLOGY METHOD 02/18/2025 12:19 PM [facility] LAB RDW 20.4(H) 11.0 - 15.0 % LAB HEMETOLOGY METHOD 02/18/2025 12:19 PM [facility] LAB Platelets 162 130 - 400 K/mcL LAB HEMETOLOGY METHOD 02/18/2025 12:19 PM [facility] LAB MPV 10.5 7.0 - 11.0 FL LAB HEMETOLOGY METHOD 02/18/2025 12:19 PM [facility] LAB NRBC 0.0 <1.0 % LAB HEMETOLOGY METHOD 02/18/2025 12:19 PM [facility] LAB NRBC Absolute 0.00 <0.10 K/mcL LAB HEMETOLOGY METHOD 02/18/2025 12:19 PM [facility] Neutrophils Relative 70.4 % LAB HEMETOLOGY METHOD 02/18/2025 12:19 PM [facility] Lymphocytes Relative 11.0 % LAB HEMETOLOGY METHOD 02/18/2025 12:19 PM [facility] Monocytes Relative 10.8 % LAB HEMETOLOGY METHOD 02/18/2025 12:19 PM [facility] Eosinophils Relative 6.0 % LAB HEMETOLOGY METHOD 02/18/2025 12:19 PM [facility] Basophils Relative 0.5 % LAB HEMETOLOGY METHOD 02/18/2025 12:19 PM [facility] Immature Granulocytes Relative 1.3 % LAB HEMETOLOGY METHOD 02/18/2025 12:19 PM [facility] Neutrophils Absolute 4.22 1.50 - 7.00 K/mcL LAB HEMETOLOGY METHOD 02/18/2025 12:19 PM [facility] Lymphocytes Absolute 0.66(L) 1.00 - 5.00 K/mcL LAB HEMETOLOGY METHOD 02/18/2025 12:19 PM [facility] Monocytes Absolute 0.65 0.20 - 1.00 K/mcL LAB HEMETOLOGY METHOD 02/18/2025 12:19 PM [facility] Eosinophils Absolute 0.36 0.00 - 0.50 K/mcL LAB HEMETOLOGY METHOD 02/18/2025 12:19 PM [facility] Basophils Absolute 0.03 0.00 - 0.20 K/mcL LAB HEMETOLOGY METHOD 02/18/2025 12:19 PM [facility] Immature Granulocytes Absolute 0.08(H) 0.00 - 0.03 K/mcL LAB HEMETOLOGY METHOD 02/18/2025 12:19 PM EDT [facility] Blood Venous blood specimen / Unknown Venipuncture / Unknown 02/18/2025 5:51 AM EDT 02/18/2025 10:28 AM EDT us Lala Low MD LAB BLOOD ORDERABLES Final Resu lt Performing Organization Address City/[facility]/ZIP Co de Phone Number [facility] [address] [place] [address], [place] [phone] * (ABNORMAL) Prothrombin time with INR (02/18/2025 5:51 AM EDT) Protime 14.4(H) 10.6 - 13.9 sec LAB COAGULATION METHOD 02/18/2025 12:10 PM EDT [facility] INR 1.2 LAB COAGULATION METHOD 02/18/2025 12:10 PM EDT [facility] Blood Venous blood specimen / Unknown Venipuncture / Unknown 02/18/2025 5:51 AM EDT 02/18/2025 10:28 AM EDT us Lala Low MD LAB BLOOD ORDERABLES Final Resu lt Performing Organization Address City/[facility]/ZIP Co de Phone Number [facility] [address] [place] [address], [place] [phone] * Magnesium (02/18/2025 5:51 AM EDT) Magnesium 2.5 1.9 - 2.6 mg/dL LAB CHEMISTRY METHOD 02/18/2025 12:30 PM EDT [facility] Blood Venous blood specimen / Unknown Venipuncture / Unknown 02/18/2025 5:51 AM EDT 02/18/2025 10:28 AM EDT us Lala Low MD LAB BLOOD ORDERABLES Final Resu lt [facility] [address] [place] [address], * (ABNORMAL) Comprehensive metabolic panel (02/18/2025 5:51 AM EDT) Sodium 130(L) 133 - 145 mmol/L LAB CHEMISTRY METHOD 02/18/2025 12:36 PM [facility] Potassium 3.5 3.5 - 5.5 mmol/L LAB CHEMISTRY METHOD 02/18/2025 12:36 PM [facility] Chloride 95(L) 96 - 110 mmol/L LAB CHEMISTRY METHOD 02/18/2025 12:36 PM [facility] CO2 29 21 - 32 mmol/L LAB CHEMISTRY METHOD 02/18/2025 12:36 PM [facility] Anion Gap 6 3 - 11 LAB CHEMISTRY METHOD 02/18/2025 12:36 PM [facility] Glucose 93 70 - 100 mg/dL LAB CHEMISTRY METHOD 02/18/2025 12:36 PM [facility] BUN 21 5 - 25 mg/dL LAB CHEMISTRY METHOD 02/18/2025 12:36 PM [facility] Creatinine 1.23 0.70 - 1.30 mg/dL LAB CHEMISTRY METHOD 02/18/2025 12:36 PM [facility] LAB eGFR 60 >=60 mL/min/1. 73m2 LAB CHEMISTRY METHOD 02/18/2025 12:36 PM [facility] LAB Comment:Calculation based on the Chronic Kidney Disease Epidemiology Collaboration (CKD-EPI) equation refit without adjustment for race. BUN/Creatinine Ratio 17.1 LAB CHEMISTRY METHOD 02/18/2025 12:36 PM [facility] Calcium 9.1 8.5 - 10.5 mg/dL LAB CHEMISTRY METHOD 02/18/2025 12:36 PM EDT [facility] AST (SGOT) 21 10 - 42 unit/L LAB CHEMISTRY METHOD 02/18/2025 12:36 PM T [facility] ALT (SGPT) 17 10 - 60 unit/L LAB CHEMISTRY METHOD 02/18/2025 12:36 PM T [facility] Alkaline Phosphatase 179(H) 42 - 121 unit/L LAB CHEMISTRY METHOD 02/18/2025 12:36 PM EDT [facility] Total Protein 6.4 6.0 - 8.0 g/dL LAB CHEMISTRY METHOD 02/18/2025 12:36 PM T [facility] Albumin 3.6 3.2 - 5.0 g/dL LAB CHEMISTRY METHOD 02/18/2025 12:36 PM [facility] Total Bilirubin 1.0 0.0 - 1.4 mg/dL LAB CHEMISTRY METHOD 02/18/2025 12:36 PM T [facility] Blood Venous blood specimen / Unknown Venipuncture / Unknown 02/18/2025 5:51 AM EDT 02/18/2025 10:28 AM EDT us Lala Low MD LAB BLOOD ORDERABLES Final Resu lt [facility] [address] [place] [address], documented in this encounter Visit Diagnoses Diagnosis Encounter for other general examination documented in this encounter Care Teams Leaf Conditioner Helper Relationship Specialty Start Date End Date Felix Randle MD [address] [place], [place] PCP - General Internal Medicine 06/24/12 documented as of this encounter
--- OUTSIDE RECORDS SUMMARY | 2025-07-12 12:37 | XMS_ITS | Encounter Summary ---
Author Organization [facility] Address [address] [place] [address] Care Team Providers Care Fox Raiser Name Role Phone Felix Randle MD Primary Care Provider [phone] Encounter Details Date Type Department Care Team (Late st Contact Info) Description 02/20/2025 Lab Requisition [facility] - Main Lab [address] [facility] [place] [address] Lala Low MD [address] [place] [address] Encounter for other general examination Social History [...] LAB CHEMISTRY METHOD 02/20/2025 11:10 AM EDT [facility] Potassium 4.8 3.5 - 5.5 mmol/L LAB CHEMISTRY METHOD 02/20/2025 11:10 AM EDT [facility] Chloride 99 96 - 110 mmol/L LAB CHEMISTRY METHOD 02/20/2025 11:10 AM [facility] CO2 24 21 - 32 mmol/L LAB CHEMISTRY METHOD 02/20/2025 11:10 AM [facility] Anion Gap 8 3 - 11 LAB CHEMISTRY METHOD 02/20/2025 11:10 AM [facility] Glucose 100 70 - 100 mg/dL LAB CHEMISTRY METHOD 02/20/2025 11:10 AM [facility] BUN 23 5 - 25 mg/dL LAB CHEMISTRY METHOD 02/20/2025 11:10 AM [facility] Creatinine 0.99 0.70 - 1.30 mg/dL LAB CHEMISTRY METHOD 02/20/2025 11:10 AM [facility] eGFR 78 >=60 mL/min/1. 73m2 LAB CHEMISTRY METHOD 02/20/2025 11:10 AM [facility] Comment:Calculation based on the Chronic Kidney Disease Epidemiology Collaboration (CKD-EPI) equation refit without adjustment for race. BUN/Creatinine Ratio 23.2 LAB CHEMISTRY METHOD 02/20/2025 11:10 AM [facility] Calcium 9.1 8.5 - 10.5 mg/dL LAB CHEMISTRY METHOD 02/20/2025 11:10 AM [facility] Blood Venous blood specimen / Unknown Venipuncture / Unknown 02/20/2025 5:56 AM EDT 02/20/2025 9:16 AM EDT us Lala Low MD LAB BLOOD ORDERABLES Final Resu lt [facility] [address] [place] [address], documented in this encounter Visit Diagnoses Diagnosis Encounter for other general examination documented in this encounter Care Teams Fox Raiser Relationship Specialty Start Date End Date Felix Randle MD [address] [facility] [address] [place], [place] PCP - General Internal Medicine 06/24/12 documented as of this encounter
--- OUTSIDE RECORDS SUMMARY | 2025-07-12 12:39 | XMS_ITS | Encounter Summary ---
Author Organization [facility] Address [address] [place] [phone] Phone Care Team Providers Care Station Engineer Chief Name Role Phone Felix Randle MD Primary Care Provider Encounter Details Date Type Department Care Team (Late st Contact Info) Description 07/19/2024 Procedure Pass [facility] Endoscopy Admitting Dept Virtual Department [address] [place] [address] Social History Tobacco Use Types Packs/Day Years [...] on filedocumented in this encounter Care Teams Station Engineer Chief Relationship Specialty Start Date End Date Felix Randle MD [address] [place] [address] PCP - General Internal Medicine 08/20/23 documented as of this encounter Additional Source Comments The information contained in this document represents components of the legal health record. It is not the complete legal health record.[facility]
--- OUTSIDE RECORDS SUMMARY | 2025-07-12 12:39 | XMS_ITS | Data Portability ---
Author Organization [facility] [employer] [facility], Main Office Address [address] [facility], [address] [place] [address] Care Team Providers Care Veneer Stacker Name Role Phone [facility] OTHER [facility] A[facility]YA Primary Care Provider Assessment Encounter Date Assessment Date Assessment LastModified by Organization Details LastModified Time 11/09/2024 11/09/2024 Labs 3/4:Na 127-K 4.8-Bun 62-Cr 0.9- wbc 5.6-hgb 7.3-hct 23.8-plt 169 Not available 11/10/2024 00:52:04 Plan of Treatment Reminders Order Date Submit Date Provider Last Modified By Organization Details Last Modified Time Details Appointments None record ed. Lab None record ed. Referral None record ed. Procedures None record ed. Surgeries None record ed. Imaging None record ed. Medication Orders None record ed. Patient TargetsNo targets recorded. Patient InstructionsNo instructions recorded. Reason for Referral None Reported. Problems Name Problem SNOMED Code Status Onset Date Resolution Date Notes Provider Name and Address Organization Details Recorded Time Primary malignant neoplasm of larynx 357484022 Completed 201811/08/2024 Not Available [facility] 20:03:28 Laryngect chuckie Completed 201811/10/2024 MARTIN VALDES [address] [facility], [address], [place], [address] , [facility] 00:42:07 Muscle weakness 16540105 Completed 201811/08/2024 Not Available [facility] 19:54:05 Hyperlipi demia 43399812 Completed 201811/08/2024 Not Available [facility] 19:54:06 Anesthesi a of skin 700969137 Completed 201811/08/2024 Not Available [facility] 19:54:06 Abnormal gait 14764361 Completed 201811/08/2024 Not Available [facility] 19:54:07 Atrial fibrillat ion 29159543 Completed 201811/08/2024 Not Available [facility] 20:04:44 Essential hypertens ion 43934177 Completed 201811/08/2024 MARTIN VALDES [address] [facility], [address], [place], [address] , [facility] 5 00:46:05 Chronic obstructi ve pulmonary disease 40807726 Completed 201811/08/2024 Not Available [facility] 20:10:25 Gastroeso phageal reflux disease without esophagit is 374116965 Completed 201811/08/2024 Not Available [facility] 20:11:20 Tracheost chuckie present 252335216 Active 2018 Not Available [facility] 19:54:13 Anemia 392947957 Completed 201811/08/2024 Not Available [facility] 20:05:12 Bleeding from nose 089330904 Completed 201811/08/2024 Not Available [facility] 20:05:43 Low blood pressure 71261024 Completed 201811/08/2024 Not Available [facility] 20:06:44 Abnormal gait 95633581 Completed 201811/08/2024 Not Available [facility] 20:07:09 Dysphagia 76432959 Completed 201811/08/2024 Not Available [facility] 19:54:12 Dysphonia 01749313 Completed 201811/08/2024 Not Available [facility] 20:07:47 Hyperlipi demia 50153517 Completed 201811/08/2024 Not Available [facility] 20:08:20 Anesthesi a of skin 797040473 Completed 201811/08/2024 Not Available [facility] 20:09:20 Muscle weakness 18988128 Completed 201811/08/2024 Not Available [facility] 20:09:53 Anemia 848734645 Active 2024 Not Available [facility] 20:46:43 Atrial fibrillat ion 80882332 Active 2024 Not Available [facility] 20:46:45 Cardiomyo shweta 92085240 Completed 202411/10/2024 MARTIN VALDES [address] , [address], [place], [address] , [facility] 5 00:38:57 Amyloidos is 24984498 Completed 202411/10/2024 MARTIN VALDES [address], [address], [place], [address] , [facility] 5 00:38:35 Implantat ion to cardiovas cular system Completed 202411/10/2024 MARTIN VALDES [address], [address], [place], [address] , [facility] 5 00:38:35 Diastolic heart failure 866893004 Active 2024 Not Available [facility] 20:43:14 Rheumatic tricuspid valve regurgita tion 85782701 Completed 202411/10/2024 MARTIN VALDES [address], [address], [place], [address] , [facility] 5 00:42:07 Hypo-osmo lality and or hyponatre deisi 792335838 Active 2024 Not Available [facility] 5 20:44:30 Implantat ion procedure Completed 202411/10/2024 MARTIN VLADES [address], [address], [place], [address] , [facility] 5 00:38:35 Chronic obstructi ve pulmonary disease 32835798 Active 2024 Not Available [facility] 5 07:30:42 Hemoptysi s 75412607 Completed 202411/10/2024 MARTIN VALDES [address] , [address], [place], [address] , [facility] 5 00:38:35 Primary malignant neoplasm of laryngeal cartilage 639253456 Completed 202411/10/2024 2019 MARTIN VALDES [address] , [address], [place], [address] , [facility] 5 00:42:07 Alcoholic cirrhosis 951117914 Completed 202411/10/2024 MARTIN VALDES [address] , [address], [place], [address] , [facility] 5 00:42:07 Cramp in lower leg associate d with rest 220192253 Completed 202411/10/2024 MARTIN VALDES [address], [address], [place], [address] , [facility] 5 00:38:35 Chronic kidney disease stage 3A 501109451 Active 2024 Not Available [facility] 5 07:36:45 Acute kidney injury 84620895 Completed 202411/10/2024 MARTIN VALDES [address], [place], [address] , [facility] 5 00:38:35 Hyperlipi demia 61582699 Active 2024 Not Available [facility] 5 07:37:17 Atheroscl erosis of coronary artery without angina pectoris 93593350256 4103 Completed 202411/10/2024 MARTIN VALDES [address] [facility], [address], [place], [address] , [facility] 5 00:38:35 Gastroeso phageal reflux disease without esophagit is 398998570 Active 2024 Not Available [facility] 5 07:35:09 Heart disease 06184612 Active 2024 MARTIN VALDES [address] [facility] [facility] [address], [place], [address] , [facility] 5 00:23:37 Essential hypertens ion 27925314 Active 2024 MARTIN VALDES [address] [facility], [address], [place], [address] , [facility] 5 00:46:05 Problem Notes None recorded. Medical Equipment None Reported. Allergies Allergen ID Allergen Name Allergen Category Reaction Reaction Severity Criticality Documentation Date Start Date Code Code System Note Provider Name and Address Organization Details Recorded Time 67194 Venofer medicatio n Not available Not available Not available 11/10/2024 39476 9 RxNorm MARTIN VALDES [address] [facility], [address], [place], [address], [facility] 5 00:54:51 Medications Name Sig Start Date Stop Date Status Note LastModified by Organization Details LastModified Time Lioresal 10 mg tablet Give 0.5 tablet by mouth at bedtime for Pain May cause drowsiness, avoid alcohol 2024 active Not Available Not Available Not Avai lable pantoprazole 40 mg tablet,delay ed release Give 1 tablet by mouth one time a day for GERD Do not crush. 2024 active Not Available Not Available Not Avai lable simvastatin 20 mg tablet Give 1 tablet by mouth at bedtime for HLD Give in the evening. Avoid Grapefruit juice. 2024 active Not Available Not Available Not Avai lable DSS 100 mg capsule Give 1 capsule by mouth two times a day for constipatio n 2024 active Not Available Not Available Not Avai lable terazosin 10 mg capsule Give 1 capsule by mouth at bedtime for HTN 2024 active Not Available Not Available Not Avai lable Edy-600 600 mg (as calcium carbonate 1,500 mg) tablet Give 1 tablet by mouth at bedtime for Supplement 2024 active Not Available Not Available Not Avai lable iron 325 mg (65 mg iron) tablet Give 1 tablet by mouth two times a day for Anemia Avoid dairy products, tetracyclin e, etc. within 2 hours. May discolor urine or feces. Take with food or meal if upset stomach occurs. 2024 active Not Available Not Available Not Avai lable tolvaptan 30 mg tablet Give 1 tablet by mouth one time a day for Hyponatremi a 2024 active Not Available Not Available Not Avai lable thiamine mononitrate (vitamin B1) 100 mg tablet Give 1 tablet by mouth at bedtime for Supplement 2024 active Not Available Not Available Not Avai lable sodium phosphates 19 gram-7 gram/197 mL enema Insert 1 unit rectally every 24 hours as needed for Constipatio n Use only if Bisacodyl Suppository is ineffective 2024 active Not Available Not Available Not Avai lable Nasal Mist 0.9 % spray aerosol 5 ml inhale orally four times a day for Tracheostom a Humidificat ion. 2024 active Not Available Not Available Not Avai lable Jardiance 10 mg tablet Give 1 tablet by mouth in the morning for CHF 2024 active Not Available Not Available Not Avai lable Vyndamax 61 mg capsule Give 1 capsule enterally in the morning for Cardiomyopa thy 2024 active Not Available Not Available Not Avai lable OneLAX Bisacodyl 10 mg rectal suppository Insert 1 suppository rectally every 24 hours as needed for constipatio n Use if Senna is Ineffective 2024 active Not Available Not Available Not Avai lable Vitals None Recorded Social History Question Answer Notes LastModified by Organization Details LastModified Time Tobacco Smoking Status Former Smoker MARTIN VALDES [address] [facility], [address], [place], [address], [facility] 11/10/2024 00:52:31 Do You Have An Advance Directive? Yes Information not available 11/10/2024 What Is Your Code Status? Full Code No Dialysis [id number] Information not available 11/10/2024 [facility] not [facility] 11/10/2024 What Was The Date Of Your Most Recent Tobacco Screening? 11/09/2024 Information not available 11/10/2024 Do You Have An Out Of Hospital DNR? No Information not available 11/10/2024 What Is Your Relationship Status? Single Information not available 11/10/2024 Has Tobacco Cessation Counseling Been Provided? No Information not available 11/10/2024 Sex: Unknown Functional Status Question Answer Note LastModified by Organizat ion Details LastModified Time Do you use any illicit or recreational drugs? No Information not available 11/10/2024 Do you or have you ever used any other forms of tobacco or nicotine? No Information not available 11/10/2024 What is your level of alcohol consumption? None Information not available 11/10/2024 Mental Status None recorded. Family History Nothing Reported Notes:Congestive heart failu re: Mother. Crohn's disease: Sister. Dementia: Father. Developmental delay: Sister. Heart attack: Mother. Hypertension: Mother and Sister. Skin cancer: Sister. Medical History No medical history recorded. Immunizations Vaccine Type Date Status Note Provider Nam e and Address Organization Details Recorded Time Respiratory syncytial virus (RSV) MAB, unspecified 4 completed Tico pollack [facility] 11/09/2024 14:39:06 Td(adult) unspecified formulation 2 completed Tico pollack [facility] 11/09/2024 14:39:23 Pneumococcal conjugate PCV 13 3 completed Tico pollack [facility] 11/09/2024 14:39:37 pneumococcal polysaccharide PPV23 9 completed Tico [place] null, [facility] 11/09/2024 14:39:49 influenza, unspecified formulation 0 completed Tico [place] null, [facility] 11/09/2024 14:40:04 influenza, unspecified formulation 1 completed Tico [place] null, [facility] 11/09/2024 14:40:08 influenza, unspecified formulation 2 completed Tico [place] null, [facility] 11/09/2024 14:40:13 influenza, unspecified formulation 3 completed Tico [place] null, [facility] 11/09/2024 14:40:17 influenza, unspecified formulation 4 completed Tico [place] null, [facility] 11/09/2024 14:40:22 SARS-COV-2 (COVID-19) vaccine, UNSPECIFIED 1 completed Tico [place] null, [facility] 11/09/2024 14:40:37 SARS-COV-2 (COVID-19) vaccine, UNSPECIFIED 1 completed Tico [place] null, [facility] 11/09/2024 14:40:41 SARS-COV-2 (COVID-19) vaccine, UNSPECIFIED 1 completed Tico [place] null, [facility] 11/09/2024 14:40:46 SARS-COV-2 (COVID-19) vaccine, UNSPECIFIED 2 completed Tico [place] null, [facility] 11/09/2024 14:40:52 SARS-COV-2 (COVID-19) vaccine, UNSPECIFIED 2 completed Tico [place] null, [facility] 11/09/2024 14:41:03 SARS-COV-2 (COVID-19) vaccine, UNSPECIFIED 3 completed Tico [place] null, [facility] 11/09/2024 14:41:09 SARS-COV-2 (COVID-19) vaccine, UNSPECIFIED 3 completed Tico Dobb[place] [facility], [facility] 11/09/2024 14:41:14 SARS-COV-2 (COVID-19) vaccine, UNSPECIFIED 4 completed Tico Dobb[place] [facility], [facility] 11/09/2024 14:41:20 zoster, unspecified formulation 2 completed Tico [place]obb[place] [facility], [facility] 11/09/2024 14:41:31 zoster, unspecified formulation 3 completed Tico [place] [facility], [facility] 11/09/2024 14:41:37 Past Encounters Encounter ID Performer Location Encounter Start Date Encounter Closed Date Diagnosis/Indication Diagnosis SNOMED-CT Code Diagnosis ICD10 Code Diagnosis IMO Codes Diagnosis Note [id number] MARTIN VALDES [place] [address] [place] [address] 11/09/2024 12:09:33 11/10/2024 15:45:36 Tracheostomy present 086102444 Z93.0 presented to ED with hemoptysis from stomasourc e from [facility] pulmonary hemorrhage : - resolvedS/ p emergent bronchosco py with TXA 500mg administer ed - bleeding resolvedCT A neck and chest did not demonstrat e any active extravasat ion however these studies were compromise d by severe motion artifact.S /p repeat bronch 10/28: Findings suggestive of upper airway bleed likely from stoma .Fle xible Tracheosco py on 11/02: Trachea with mild irritation and small clot of blood. No active bleeding. No sign of active extravasat ion.Repeat CTA neck/chest 10/31 without signs of active bleeding; 11/08: no acute extravasat ion Atrial fibrillation 4943 6004 I48.91 watchman deviceasa and plavix stopped in acute care 10/09 to bleed Chronic ki dney disease stage 3A 317244231 N18.31 acute on chronicabn labs hyponatrem ia and hypokalmia -resolveda void nephrotoxi c medsBaseli ne Cr ~ 1.2.follow up as outpatient Continue Fluid restrictio n,cont lokelmapot assium restricted diet Diastolic heart failure 368985377 I50.30 Echo: LVEF 60 to 65% no regional wall motion abnormalit iesSevere tricuspid regurgitat ion.contin ue torsemide 40 mgfluid rest 1500 ccfollow up 1-2 weeks with cardsConti nue dapagliflo zin 10 mg dailycont to hold Acetazolam nam , HCTZ, and Spironolac tone for now Anemia 877293731 D64.9 S/p 1 unit PRBC 10/23.cont Ferrous Sulfatemon itor labs Heart disease 29552213 I 51.9 hx Amyloidosi s cardiomyop athy,Lisa nue dapagliflo zin, Vyndamax Hypo-osmol ality and or hyponatremia 701671041 E87.1 seen by renal believes it to be Hypoosmola r hyponatrem ia secondary to a combinatio n of defects including perfusion independen t ADH secretion associated with his pulmonary process and thiazide diuretic as well as low osmole intake impairing free water clearance. Sodium of 130 on 10/24 -> 126 -> 121 (10/26) -> 122 (10/27) -> 124 (11/03) -> 127 (11/08).gonzalo chanda with urea powdercont tolvaptan 30mgMonito r BMP /sodium level Gastroesop hageal reflux disease without esophagitis 956506675 K21.9 continue PPI Chronic back pain 933745 002 M54.9 cont BaclofenLi docaine patch Essential hypertension 24238628 I10 cont terazosinm onitor bp Hyperlipidemia 86547193 E78.5 continue zocor qd Health Concerns Section Related Observation LastModified by Organization Detai ls LastModified Time None Recorded Concern Status LastModified by Organization Details LastModified Time None Recorded Advance Directives Directive Y: Payers Insurance Date Sequence Insurance Name Policy Number Policy López Covered Member ID López Member ID Guarantor Name 11/09/2024 1 [place]IC[place]: [employer] Sanket Little [id number] Sanket Little 11/09/2024 2 A[employer] (MEDICARE SUPPLEMENT) Sanket Little [id number] Sanket Little Notes Date Note Type Note Provider Name and Address Organization Details Recorded Time 11/09/2024 text/html ROS as noted in the HPI This is a 74 yr old male with a PMH of laryngeal cancer status post laryngectomy 2018, A-fib status post Watchman device, 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 Admitted to [facility] after acute care stay. Presented to [facility] with massive hemoptysis from his tracheal stoma secondary to hemorrhage of the left upper lobe. Hospital course was complicated by anemia and hyponatremia. on 11/07 recurrent hemoptysis, repeat CTA on 11/08 showed no evidence of extravasation, bleeding likely secondary to bleeding from stoma site instead of intrapulmonary pathology. Prior to discharge there had been no bleeding for more than 11 hours Patient seen for initial intake for continue care and rehab. Patient seen lying in bed currently with getting NS neb tx. he reports that shortly after arriving last evening he started having mild streaking of blood from stoma that resolved, however he know has a blood clot noted covering approximately 75 % of the trachea. Due to concerns for compromise airway with patient reporting shortness of breath, he will be sent to ED for evaluation. MARTIN VALDES [address] [facility], [address], [place], [address], [facility] 11/10/2024 00:57:32
--- OUTSIDE RECORDS SUMMARY | 2025-07-12 12:39 | XMS_ITS | Clinical Summary ---
Author Organization [facility] Address [address] [place] [address] Phone Care Team Providers Care Co Founder And Chief Strategy Officer Name Role Phone Felix Randle MD Primary Care Provider [phone] Encounters Date Type Department Care Team Description 06/15/2025 8:11 AM EDT - 06/15/2025 11:59 PM EDT Hospital Encounter [facility] Bone Density [address] [place] [phone] Age-related osteoporosis with current pathol fracture of vertebra, with delayed healing, subsequent encounter; Age-related osteoporosis with current pathological fracture, vertebra(e), initial encounter for fracture ([facility] V24, [facility] V28) Discharge Disposition: Home or Self Care 05/04/2025 1:24 PM EDT - 05/04/2025 11:59 PM EDT Hospital Encounter [facility] Nuclear Medicine [address] [place] [phone] Discharge Disposition: Home or Self Care 05/04/2025 10:15 AM EDT - 05/04/2025 11:59 PM EDT Hospital Encounter [facility] Nuclear Medicine [address] [place] [phone] Fracture, lumbar vertebra, compression, sequela Discharge Disposition: [...] pathological fracture, vertebra(e), initial encounter for fracture ([facility] V24, [facility] V28) [place] BONE/JOINT SCAN SPECT CT Routine [...] probability of hip fracture of 7.9%. Code 35845 -------- FINAL REPORT -------- Dictated By: Navarro Ewing Dictated Date: 06/15/2025 09:39 ET Assigned Physician: Navarro Ewing Reviewed and Electronically Signed By: Navarro Ewing Signed Date: 06/15/2025 09:42 ET Workstation ID: [id number] Transcribed By: Self Edit Transcribed Date: 06/15/2025 [...] bone mineral density at L1-2 is 0.787 gm/rt2eelae is 66% of that of young normals [...] probability of hip fracture of 7.9%. Code 62912 -------- FINAL REPORT -------- Dictated By: Navarro Ewing Dictated Date: 06/15/2025 09:39 ET Assigned Physician: Navarro Ewing Reviewed and Electronically Signed By: Navarro Ewing Signed Date: 06/15/2025 09:42 ET Workstation ID: [id number] Transcribed By: Self Edit Transcribed Date: 06/15/2025 [...] Signed Date: 05/04/2025 16:16 ET Workstation ID: [id number] Transcribed By: Self Edit Transcribed Date: 05/04/2025 [...] these are only partially included in the enemt-nh-mmes but there is associated radiotracer uptake. Incidental [...] deformity at L4. Maximum height loss of ykihilkedfjxl42%. There is associated radiotracer uptake. T11 compression fracture with approximately 50% height loss. There isassociated radiotracer uptake. Superior endplate fracture at T10 with approximately 50% height loss.There is associated radiotracer uptake. Irregular sclerosis in the sacral ala consistent with bilateral sacralinsufficiency fractures; these are only partially included in hissggyo-sx-qduj but there is associated radiotracer uptake. Incidental [...] Signed Date: 05/04/2025 16:16 ET Workstation ID: [id number] Transcribed By: Self Edit Transcribed Date: 05/04/2025 15:50 ET Emeka Salgado MD [facility] PROCEDURES Final Result * (ABNORMAL) Basic metabolic panel (02/27/2025 6:03 AM EDT) Sodium 129(L) 133 - 145 mmol/L LAB CHEMISTRY METHOD 02/27/2025 1:18 PM [facility] Potassium 4.4 3.5 - [...] LAB CHEMISTRY METHOD 02/27/2025 1:[address] [facility] eGFR 68 >=60 mL/min/1. 73m2 LAB CHEMISTRY METHOD 02/27/2025 1:[address] [facility] Comment:Calculation based on the Chronic Kidney Disease Epidemiology Collaboration (CKD-EPI) equation refit without adjustment for race. BUN/Creatinine Ratio 29.5 LAB CHEMISTRY METHOD 02/27/2025 1:[address] [facility] Calcium 9.1 8.5 - 10.5 mg/dL LAB CHEMISTRY METHOD 02/27/2025 1:[address] [facility] Blood Venous blood specimen / Unknown Venipuncture / Unknown 02/27/2025 6:03 AM EDT 02/27/2025 10:57 AM EDT us Lala Low MD LAB BLOOD ORDERABLES Final Resu lt [facility] [address] [place] [address], from Last 3 Months or Most Recently Relevant to Health Maintenance Insurance MEDICARE [facility] Care Teams Co Founder And Chief Strategy Officer Relationship Specialty Start Date End Date Felix Randle MD [address] [facility] [address] [place], [place] PCP - General Internal Medicine 06/24/12
--- OUTSIDE RECORDS SUMMARY | 2025-07-12 12:39 | XMS_ITS | Clinical Summary ---
Author Organization [facility] Address [address] [place] [phone] Phone Care Team Providers Care Operational Risk Analyst Name Role Phone Felix Randle MD Primary Care Provider Allergies Active Allergy Reactions Criticality Noted Date Comments Iron Sucrose Bleeding,Hypotension High 02/24/2023 hypotension Medications ascorbic acid, vitamin C, (VITAMIN C) 500 MG tablet Take 500 mg by mouth daily. Active calcium carbonate (CALCIUM 500 ORAL) Take by mouth. Activ e ferrous sulfate 325 mg (65 mg [place] iron) tablet Take 325 mg by mouth [...] he took 05/17 -He is followed by [facility] heart failure service Dr Leonard -He was [...] setting of known cardiac amyloidosis. Followed at [facility]. Significant weight gain over the last several [...] involvement with the specialty cardiology practice at [facility]. He is on tafamidis, ordered as nonformulary [...] EDT): -He was very recently hospitalized at [facility] 05/13 - 05/14 for evaluation of hemoptysis [...] on digoxin (this is not on his [facility] discharge list however it was mentioned in [...] ecorded Are you denied basic needs s [facility] as food, clothing, or medical care? No 05/18/2024 In the past 12 months have y ou been in a relationship with a person who hurts, threatens, or tries to control you? No 05/18/2024 Are you denied basic needs s [facility] as food, clothing, or medical care? [...] Date/Time Associated Diagnosis Comments BASIC METABOLIC PANEL (BMP) Routine 05/20/2024 6:40 AM EDT from Last 3 Months or Most Recently Relevant to Health Maintenance Results * Basic metabolic panel (05/20/2024 6:40 AM EDT) SODIUM 136 133 - 146 mmol/L [facility] CHLORIDE 98 96 - 108 mmol/L [facility] POTASSIUM 3.6 3.3 - 5.1 mmol/L [facility] CO2 27 21 - 35 mmol/L [facility] BUN 14 6 - 19 mg/dL [facility] CREATININE 1.20 0.5 - 1.5 mg/dL [facility] GLUCOSE 92 70 - 99 mg/dL [facility] CALCIUM 9.0 8.4 - 10.3 mg/dL [facility] EGFR 63 >59 mL/min/1.7 3m2 [facility] Comment:Estimated glomerular filtration rate calculated using the CKD-EPI refit equation. ANION GAP 15 10 - 20 mmol/L [facility] Blood 05/20/2024 6:40 AM EDT 05/20/2024 6:48 AM EDT us Mary Lentz MD LAB BLOOD BKR ORDERABLES Fi nal Result [address] [address] from Last 3 Months or Most Recently Relevant to Health Maintenance Insurance MEDICARE PART A & B [facility] MEDICARE SUPPLEMENT MEDICARE PART A & B [facility] MEDICARE SUPPLEMENT MEDICARE PART A & B [facility] MEDICARE SUPPLEMENT MEDICARE PART A & B [facility] MEDICARE SUPPLEMENT [facility] Address: [facility] [address] [phone] MEDICARE PART A & B [facility] MEDICARE SUPPLEMENT MEDICARE PART A & B [facility] MEDICARE SUPPLEMENT MEDICARE PART A & B MEDICARE SUPPLEMENT MEDICARE PART A & [place] [facility] [place] [phone] MEDICARE PART A & B [facility] MEDICARE SUPPLEMENT Advance Directives For more information, please contact: [phone] (9AM - 5PM [facility], Thursday-Thursday) Documents on File Type Date Recorded Patient Evaluation Manager Expl anation Healthcare Proxy 05/23/2024 3:08 PM * Full Code (Latest Code Status on File) Date Activated Date Inactivated Comments 05/18/2024 4:14 PM Question Answer Comments Code Status Confirmed With: Patient * Full Code Date Activated Date Inactivated Comments 03/09/2024 7:08 PM 05/18/2024 4:14 PM Question Answer Comments Code Status Confirmed With: Patient Care Teams Operational Risk Analyst Relationship Specialty Start Date End Date Felix Randle MD [address] [place] [id number] PCP - General Internal Medicine 08/20/23 Additional Source Comments The information contained in this document represents components of the legal health record. It is not the complete legal health record.[facility]
--- OUTSIDE RECORDS SUMMARY | 2025-07-12 12:39 | XMS_ITS | Encounter Summary ---
Author Organization [facility] Address [address] [place] [phone] Phone Care Team Providers Care Stitcher Hand Name Role Phone Felix Randle MD Primary Care Provider Encounter Details Date Type Department Care Team (Late st Contact Info) Description 03/09/2024 Procedure Pass [facility] [address] [place] [address] Social History Tobacco Use Types Packs/Day Years [...] 8:35 PM EDT Brittni Talamantes, JESS * Logan Suicide Severity Rating Scale (Screener/Recent Self-Report) Question [...] on filedocumented in this encounter Care Teams Stitcher Hand Relationship Specialty Start Date End Date Felix Randle MD [address] [place] [address] PCP - General Internal Medicine 08/20/23 documented as of this encounter Additional Source Comments The information contained in this document represents components of the legal health record. It is not the complete legal health record.[facility]
--- OUTSIDE RECORDS SUMMARY | 2025-07-12 12:39 | XMS_ITS | Encounter Summary ---
Author Organization [facility] Address [address] [place] [phone] Phone Care Team Providers Care Electric Motor Mechanic Name Role Phone Felix Randle MD Primary Care Provider Encounter Details Date Type Department Care Team (Latest Contact Info) Description 04/14/2024 Transcribe Orders Virtual Department [address] [place] [address] Re Beyer NP [address] [place] [phone] Anemia, unspecified type (Primary Dx) Social History [...] clinician's provided indication for this examination in [facility]: Outside Radiology Order; anemia TECHNIQUE: US [...] clinician's provided indication for this examination in [facility]:Outside Radiology Order; anemia TECHNIQUE: US Abdominal [...] failure. 2. Question small gallstone. Re Beyer DICER OPERATOR IMG US ABDOMEN Final Res ult documented in this encounter Visit Diagnoses Diagnosis Anemia, unspecified type- Primary Anemia, unspecified type documented in this encounter Care Teams Electric Motor Mechanic Relationship Specialty Start Date End Date Felix Randle MD [address] [place] [address] PCP - General Internal Medicine 08/20/23 documented as of this encounter Additional Source Comments The information contained in this document represents components of the legal health record. It is not the complete legal health record.[facility]
--- OUTSIDE RECORDS SUMMARY | 2025-07-12 12:39 | XMS_ITS | Continuity of Care Document ---
Author Organization [place] - [facility], [facility] Address [address] [place] [address] Care Team Providers Care Engine Maintenance Mechanic Name Role Phone GUSTAVO GOLDSMITH OTHER Assessment Encounter Date Assessment Date Assessment LastModified by Organization Details LastModified Time 07/11/2025 07/11/2025 The patient will be prescribed 0.9% sodium chloride solution for nebulizer use. The prescription will be for 5 mL four times daily for 90 days, with two liter bottles provided and three refills to cover one year. The patient was advised to use a syringe or tablespoon to measure the solution accurately. He was informed that the solution could be purchased at [facility] [employer] on [facility] if needed. Follow-up was recommended for next fall. [email or web address] Not available 07/11/2025 13:51:55 Plan of Treatment Reminders Order Date Submit Date Provider Last Modified By Organization Details Last Modified Time Details Appointments Establish ed 15 2025 09:15A M BENIGNO LO MD Not available Not available Not available Lab None recorded. Referral None recorded. Procedures None recorded. Surgeries None recorded. Imaging None recorded. Medication Orders sodium chloride 0.9 % irrigatio n solution 2024 [id number] YANNICK [id number], [address] [facility], [place], [address], 07/11/2025 13:52:32 Patient TargetsNo targets recorded. Patient Instructions Encounter Date Encounter Id Patient Instructions Last Modified By Organization Details Last Modified Time 07/11/2025 [id number] Use 0.9% sodium chloride solution for nebulizer as prescribed: 5 mL four times daily. Obtain solution from [facility] on [address] in [place] if needed. Use a syringe or tablespoon to measure the solution accurately. Schedule follow-up appointment for next fall. [email or web address] Not available 07/11/2025 13:51:55 Please note: Parts of this encounter note have been generated by AI based on audio conversation. Patient consent was required prior to utilizing this technology. Content review was required prior to finalizing the note. [email or web address] Not available 07/11/2025 13:51:55 Reason for Referral None Reported. 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 Tobacco abuse; Note: Date Diagnosed : 08/07/2014 1:24 PM (305.1) Not Available [facility] 4 02:50:45 Difficult y speaking Active 2014 Hoarsenes s; Note: Date Diagnosed : 01/12/2015 5:28 PM (784.49) Not Available [facility] 4 02:50:47 Deviated nasal septum 540478012 Active 2014 Nasal septal deviation ; Note: Date Diagnosed : 08/07/2014 1:24 PM (470) ; Start Date : 4 Deviate d nasal septum; Note: Date Diagnosed : 03/02/2015 1:09 PM (J34.2) [mapped from ICD9 code: 470] Not Available [facility] 4 02:50:47 Finding of resonance of voice 378123631 Active 2014 Other voice and resonance disorders ; Note: Date Diagnosed : 03/02/2015 1:09 PM (R49.8) [mapped from ICD9 code: 784.49] Not Available [facility] 4 02:50:41 Tobacco dependenc e caused by cigarette s 14909977062 869915 Active 2014 Nicotine dependenc e, cigarette s, uncomplic ated; Note: Date Diagnosed : 03/02/2015 1:09 PM (F17.210) [mapped from ICD9 code: 305.1] Not Available [facility] 4 02:50:43 Edema of larynx 91651767 Active 2014 Laryngeal edema; Note: Date Diagnosed : 08/07/2014 1:24 PM (478.6) ; Start Date : 4 Edema of larynx; Note: Date Diagnosed : 03/02/2015 1:09 PM (J38.4) [mapped from ICD9 code: 478.6] Not Available [facility] 4 02:50:46 Sensorine ural hearing loss of bilateral ears 946024867 Active 2014 Sensorine ural hearing loss, bilateral ; Note: Date Diagnosed : 5 2:42 PM (H90.3) Not Available [facility] 4 02:50:42 Neoplasm of uncertain behavior of larynx 60753003 Active 2015 Neoplasm of uncertain behavior of larynx; Note: Date Diagnosed : 03/20/2016 9:08 AM (D38.0) Not Available [facility] 4 02:50:43 Dysphonia 60696197 Active 2016 Hoarsenes s; Note: Date Diagnosed : 09/24/2016 9:16 AM (R49.0) Not Available [facility] 4 02:50:47 Disorder of vocal cord 24177045 Active 2016 Leukoplak ia of vocal cords; Note: Date Diagnosed : 10/16/2016 11:47 AM (J38.3) Not Available [facility] 4 02:50:45 Lesion of oral mucosa 01615055916 32631 Active 2016 Other lesions of oral mucosa; Note: Date Diagnosed : 06/01/2017 2:12 PM (K13.79) Not Available [facility] 4 02:50:48 Malignant neoplasm of larynx 068405544 Active 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, unspecifi ed; Note: Date Diagnosed : 8 2:33 PM (C32.9) Not Available [facility] 4 02:50:44 Bleeding from nose 488128086 Active 2018 Epistaxis ; Note: Date Diagnosed : 10/20/2018 9:07 AM (R04.0) Not Available [facility] 4 02:50:43 Tracheost chuckie hemorrhag e 48374917 Active 2018 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; Note: Date Diagnosed : 11/23/2018 2:21 PM (J95.01) Not Available [facility] 4 02:50:42 Impacted cerumen of bilateral ears 25130844113 92662 Active 2018 Impacted cerumen, bilateral ; Note: Date Diagnosed : 02/24/2019 3:34 PM (H61.23) Impacte d cerumen, bilateral ; Note: Date Diagnosed : 12/05/2016 3:29 PM (H61.23) ; Start Date : 7 Not Available [facility] 4 02:50:46 Follow-up visit Active 2018 Encounter for follow-up examinati on after completed treatment for malignant neoplasm; Note: Date Diagnosed : 9 4:14 PM (Z08) Encount er for follow-up examinati on after completed treatment for condition s other than malignant neoplasm; Note: Date Diagnosed : 10/12/2018 2:03 PM (Z09) ; Start Date : 9 Not Available [facility] 4 02:50:48 History of malignant neoplasm of larynx 480339632 Active 2018 Primary tumor location: right supraglot tic Tumor staging: T1aN0 SCCA Treatment : Laryngect chuckie and RT Date of treatment completio n: Surgery 09/29/18, RT 12/2003 Oncology team: Beau Samaniego MD [address] [place] [address], [facility] RAHAT zaragoza, [address] , [facility] - [facility] 5 09:20:31 Hemoptysi s 74191566 Active 2021 Hemoptysi s; Note: Date Diagnosed : 12/12/2021 9:19 AM (R04.2) Not Available [facility] 4 02:50:44 Tinnitus of left ear 96096741306 06 Active 2023 Tinnitus, left ear; Note: Date Diagnosed : 11/17/2023 2:35 PM (H93.12) Not Available [facility] 4 02:50:44 Dysphagia 91210671 Active 2024 Tanisha pollack [place] - [facility] [place] 17:35:00 Problem Notes None recorded. Procedures Surgical History Date Name Laterality Status Provider Name and Address Organization Details Recorded Time 05/19/2025 Nasopharyng oscopy_DP completed BENIGNO LO MD [address] [facility],[address], [address], [facility] 05/18/2025 21:29:00 11/16/2024 Nasopharyng oscopy_DP completed BENIGNO LO MD [address] [facility],[address], [address], [facility] 11/16/2024 15:46:18 09/13/2024 Comp Audio with Tymps - 21818 & 48088 completed DAYAN ALCALA [address] [facility],[address], [address], [facility] 09/13/2024 15:32:20 Imaging Results None recorded. [...] MOUTH TODAY ONLY THEN ON ADVISED BY CLINIC FOR ELEVATED FOR PAIN.A. PRESSURE S active Not Available Not Available No t Available clotrimaz ole 10 mg addiosn DISSOLVE 1 ADDISON BY MOUTH 5 TIMES [...] mg tablet 01/05 completed Medicati on ID: [id number] Du ration Value: 30 Brand Name: atenolol Send Method: E-Prescr ibed Sub s Allowed: subs OK Medic ationGen ericName : atenolol Not Available Not Available Not Available acetazola mide 250 mg tablet TAKE 2 TABLETS BY MOUTH EVERY THURSDAY AND THURSDAY active Not Available Not Available No t Available torsemide 10 mg tablet 01/05 completed Medicati on ID: [id number] D uration Value: 30 Brand Name: torsemid e Send Method: E-Prescr ibed Sub s Allowed: subs OK Medic ationGen ericName : torsemid e Not Available Not Available Not Available clopidogr el 75 mg tablet TAKE ONE TABLET BY MOUTH EVERY DAY active Not Available Not Available No t Available digoxin 250 mcg (0.25 mg) tablet 09/13 completed Medicati on ID: [id number] B rand Name: digoxin Send Method: E-Prescr [...] No t Available sodium chloride 0.9 % irrigatio n solution Take 5 mL 4 times a day by irrigati on route for 90 days, for tracheos simba irrigati on. 2024 active Not Available Not Available Not Avai lable famotidin e 20 mg tablet TAKE ONE TABLET BY MOUTH AT LEAST ONE HOUR PRIOR TO IRON INFUSION ON 12/27/24 active Not Available Not Available No t Available tamsulosi n 0.4 mg capsule 01/05 completed Medicati on ID: [id number] Du ration Value: 30 Brand Name: tamsulos in Send Method: E-Prescr ibed Sub s Allowed: subs OK Medic ationGen ericName : tamsulos in Not Available Not Available Not Available baclofen 10 mg tablet START BY TAKING 1/2 TABLET BY MOUTH ONCE DAILY AT BEDTIME AND CAN INCREASE TO A FULL TABLET AT BEDTIME IF NEEDED 07/11 completed Not Available Not Available Not Available cephalexi n 500 mg capsule TAKE [...] iron) tablet 11/16 completed Medicati on ID: [id number] D uration Value: 60 Brand Name: ferrous [...] 24 hr 09/13 completed Medicati on ID: [id number] B rand Name: metoprol ol succinat e [...] mg tablet 09/13 completed Medicati on ID: [id number] B rand Name: lisinopr il Send Method: E-Prescr ibed Sub s Allowed: subs OK Medic ationGen ericName : lisinopr il Not Available Not Available Not Available terazosin 10 mg capsule TAKE ONE CAPSULE BY MOUTH EVERY DAY active Not Available Not Available No t Available finasteri de 5 mg tablet 01/05 completed Medicati on ID: [id number] D uration Value: 90 Brand Name: finaster [...] mg tablet 09/24 completed Medicati on ID: [id number] Du ration Value: 20 Reason: () Brand [...] mg tablet 01/05 completed Medicati on ID: [id number] Du ration Value: 5 Brand Name: oxycodon [...] and Address Organization Details Last Updated DateTime 07/11/2025 185.42 cm 19.4 kg/m2 36429.08 g [facility] 07/11/2025 13:37:00 Social History None recorded. Functional Status None recorded. Mental Status None recorded. Family History Nothing Reported. Medical History No medical history recorded. Past Encounters Encounter ID Performer Location Encounter Start Date Encounter Closed Date Diagnosis/Indication Diagnosis SNOMED-CT Code Diagnosis ICD10 Code Diagnosis IMO Codes Diagnosis Note [id number] BENIGNO LO MD [facility] [address] [address] 07/11/2025 13:13:57 07/11/2025 13:53:11 Malignant neoplasm of larynx 414966882 C32.9 Tracheosto my hemorrhage 86857346 J95.01 Health Concerns Section Related Observation LastModified by Organization Detai ls LastModified Time None Recorded Concern Status LastModified by Organization Details LastModified Time None Recorded Payers Encounter Date Sequence Insurance Name Policy Number Policy López Covered Member ID López Member ID Guarantor Name 07/11/2025 1 MEDICARE [place]: [employer] Sanket Little [id number] Sanket Little 07/11/2025 2 [employer] (MEDICARE SUPPLEMENT) Sanket Little [id number] Sanket Little Notes Date Note Type Note Provider Name and Address Organization Details Recorded Time 07/11/2025 text/html Primary tumor location: right supraglottic Tumor staging: T1aN0 SCCA Treatment: Laryngectomy and RT Date of treatment completion: Surgery 09/29/18, RT 12/2003 Oncology team: Beau Samaniego after watchman was converted from coumadin to plavix and ASA. was admitted to [facility] for hemoptysis. identified a pulmonary bleed the clots were removed with bronchoscopy. PV 09/13/24 Plosky audio B mod SNHL - HAE PV 05/19/25 Plosky nasopharynx exam benign. dysphagia offered referral to GI for dilation. not interested Sanket Little is a 75-year-old male who presents for evaluation of recurrent bleeding associated with dry conditions during the winter months. He reports a history of pulmonary evaluation, including a consultation with Dr. Nigel Sierra, which determined that his symptoms were related to humidity changes rather than pulmonary pathology. Approximately two to three weeks ago, he experienced bleeding upon waking and coughing. He contacted the pulmonary clinic for a prescription for sodium chloride for nebulizer use but was redirected to his ENT for further management. He has previously used 0.9% sodium chloride solution with relief. BENIGNO LO MD [address] [place] [address], [address], [place] - [facility] 07/11/2025 13:54:10
== END 2025-07-12 11:25 | disposition home or self-care (01) ==
LOC: HO.HUSH 10:47
PROVIDERS: PCP Internal Medicine; Visit Provider Urology
DX: N45.3 Epididymo-orchitis (principal); N40.0 Benign prostatic hyperplasia without lower urinary tract symptoms; Z13.9 Encounter for screening, unspecified
CPT/HCPCS: 99214

== ENCOUNTER → 2025-07-12 10:46 | Outpatient (BNVA) | payer MEDICARE, SELFPAY | PROVIDERS: PCP Internal Medicine; Visit Provider Urology | DX: N45.3 Epididymo-orchitis (principal); N40.0 Benign prostatic hyperplasia without lower urinary tract symptoms; Z87.891 Personal history of nicotine dependence | CPT/HCPCS: 51798; 81003; 99212 ==

== ENCOUNTER 2025-07-13 13:40 | Outpatient (REF) | payer MEDICARE, SELFPAY ==
--- OUTSIDE RECORDS SUMMARY | 2025-07-09 23:59 | XMS_ITS | Continuity of Care Document ---
Author Organization [facility] (formerly [facility]) Adult Address [address] [id number]- Care Team Providers Care Core Microarchitect Name Role Phone Razia WILSON, Felix Denis Primary Care Physician [phone] Encounter [facility] Date(s): 06/09/25 - 07/09/[address] [id number]- Encounter Type: Triage Allergies, Adverse Reactions, Alerts Substance Criticality Severity Reaction Reaction Severity Status Venofer 1 bleeding hypotension Active 1hypotension Immunizations Given and Recorded Vaccine Date Status Refusal Reason influenza virus vaccine, inactivated 06/09/24 Give n influenza virus vaccine, inactivated 07/13/23 Faraz rded influenza virus vaccine, inactivated 06/10/22 Faraz rded influenza virus vaccine, inactivated 06/07/21 Faraz rded influenza virus vaccine, inactivated 05/27/20 Faraz rded SARS-CoV-2(COVID-19)mRNA-LNP vac([id number]) 06/01/24 Recorded SARS-CoV-2(COVID-19)mRNA-LNP vac([id number]) 07/09/23 Recorded RSV vaccine preF3, recombinant 09/24/23 Recorded pneumococcal 20-valent conjugate vaccine 07/27/23 Recorded [id number] bivalent booster vax 04/22/23 Recorded [id number] bivalent booster vax 05/27/22 Recorded zoster vaccine, inactivated 09/09/22 Recorded zoster vaccine, inactivated 06/25/22 Recorded SARS-CoV-2 (COVID-19) mRNA-1273 vaccine 12/12/21 R ecorded SARS-CoV-2 (COVID-19) mRNA-1273 vaccine 07/03/21 R ecorded SARS-CoV-2 (COVID-19) mRNA-1273 vaccine 12/01/20 G iven SARS-CoV-2 (COVID-19) mRNA-1273 vaccine 11/03/20 G iven pneumococcal 23-valent vaccine 08/06/19 Recorded pneumococcal 13-valent vaccine 10/17/18 Given tetanus/diphtheria/pertussis, acel(Tdap) 08/03/12 Recorded Medications acetaminophen 500 mg oral tablet See Instructions, Take one tablet by mouth at least one hour prior to iron infusion on 12/27, # 1 tablet, 1 Refills, Maintenance, 01/04/25 9:00:00 AM EDT, [id number], Partial fill upon patient request if the prescription is for a schedule II opioid drug., 158, cm, 12/20/24 15:26:00EDT, Height, 69.8, kg, 12/20/24 13:46:00 EDT, Dry Weight Start Date: 01/04/25 Status: Ordered Medication Dispense Status: Completed Quantity: 1.0 Unit: tablet Total Allowed Fills: 2 Fills Dispensed: 0 BACLOFEN 10MG TABS BACLOFEN 10MG TABS, 0.5, tablet, By Mouth, Daily at bedtime, PRN, # 30 tablet, 3 Refills, Maintenance, 04/06/25 7:00:00 PM EDT, 188, cm, 04/01/25 8:00:00 EDT, Height, 60, kg, 04/01/25 6:42:00 EDT, DryWeight Start Date: 04/06/25 Status: Ordered Medication Dispense Status: Completed Quantity: 30.0 Unit: tablet Total Allowed Fills: 1 Fills Dispensed: 0 Colace sodium 100 mg oral capsule 100 mg, 1, capsule, By Mouth, 2 times a day, PRN, # 20 capsule, Refills 0, Tot. Refills 0, Maintenance, for constipation, 04/21/25 10:44:00 AM EDT, Route to Pharmacy Electronically, [id number], Partial fill upon patient request if the prescription is for a schedule II opioid drug.,188, cm, 04/21/25 10:16:00 EDT, Height, 68.7, kg, 04/20/25 16:40:00 EDT, Dry Weight Start Date: 04/21/25 Status: Ordered Medication Dispense Status: Completed Quantity: 20.0 Unit: capsule Total Allowed Fills: 1 Fills Dispensed: 0 Ensure Ensure, See Instructions, # 90 each, Refills 1, Tot. Refills 1, Maintenance, take 3 times a day fornutrtional supplement, 05/05/25 3:43:00 PM EDT, Supply, 188, cm, 04/24/25 7:54:00 EDT, Height, 68.7,kg, 04/20/25 16:40:00 EDT, Dry Weight Start Date: 05/05/25 Status: Ordered Medication Dispense Status: Completed Quantity: 90.0 Unit: each Total Allowed Fills: 2 Fills Dispensed: 0 Jardiance 10 mg oral tablet 1 tablet, By Mouth, Daily in AM, # 30 tablet, 11 Refills, Maintenance, 07/03/25 7:53:00 AM EDT, [facility], 188, cm, 06/28/25 7:36:00 EDT, Height, 68.7, kg, 04/20/25 16:40:00 EDT, Dry Weight Start Date: 07/03/25 Status: Ordered Medication Dispense Status: Completed Quantity: 30.0 Unit: tablet Total Allowed Fills: 1 Fills Dispensed: 0 lactulose 10 gm/15 ml oral syrup 15 mL = 10 Gm, By Mouth, Daily, # 480 mL, 1 Refills, Acute 06/28/26 8:05:00 AM EDT, 06/28/25 8:05:00 AM EDT, Syrup, [facility], Partial fill upon patient request if the prescriptionis for a schedule II opioid drug., 15 mL By Mouth Daily, 188, cm, 06/28/25 7:36:00 EDT, Height, 68.7, kg, 04/20/25 16:40:00 EDT, Dry Weight Start Date: 06/28/25 Stop Date: 06/28/26 Status: Ordered Medication Dispense Status: Completed Quantity: 480.0 Unit: mL Total Allowed Fills: 2 Fills Dispensed: 0 omeprazole 20 mg oral delayed release tablet 1 tablet = 20 mg, By Mouth, Daily, # 30 tablet, 0 Refills, Maintenance, 12/09/24 9:37:00 PM EDT, CR Tablet, Partial fill upon patient request if the prescription is for a schedule II opioid drug. Start Date: 12/09/24 Status: Ordered Medication Dispense Status: Completed Quantity: 30.0 Unit: tablet Total Allowed Fills: 1 Fills Dispensed: 0 oxyCODONE 5 mg oral tablet TAKE 1 TABLET EVERY 4-6 HOURS BY MOUTH WITH MEAL S) FOR 7 DAYS NEEDED FOR PAIN. USE SPARINGLY Start Date: 05/09/25 Status: Ordered Medication Dispense Status: Completed Total Allowed Fills: 1 Fills Dispensed: 0 pantoprazole 40 mg oral delayed release tablet 1 tablet = 40 mg, By Mouth, Daily, # 90 tablet, 3 Refills, Maintenance, 10/05/24 6:06:00 AM EST, EC Tablet, 187, cm, 09/30/24 8:54:00 EST, Height, 74, kg, 08/10/24 8:00:00 EST, Dry Weight Start Date: 10/05/24 Status: Ordered Medication Dispense Status: Completed Quantity: 90.0 Unit: tablet Total Allowed Fills: 4 Fills Dispensed: 0 simvastatin 20 mg oral tablet 20 mg, 1, tablet, By Mouth, Daily at bedtime, # 30 tablet, Refills 0, Tot. Refills 0, Maintenance, 06/06/21 2:06:00 PM EDT, Do Not Route, Partial fill upon patient request if the prescription is for aschedule II opioid drug. Start Date: 06/06/21 Status: Ordered Medication Dispense Status: Completed Quantity: 30.0 Unit: tablet Total Allowed Fills: 1 Fills Dispensed: 0 sodium chloride 0.9% inhalation solution See Instructions, 5mL via Neb 4 times a day for tracheostoma humidification, # 1,800 mL, 1 Refills,Maintenance, 07/15/24 5:42:00 PM EST, Inhalation Solution, [facility], Partial fill upon patient request if the prescription is for a schedule II opioid drug., 188, cm, 07/15/24 7:35:00 EST, Height, 79.8, kg, 07/13/24 2:53:00 EST, Dry Weight Start Date: 07/15/24 Status: Ordered Medication Dispense Status: Completed Quantity: 1800.0 Unit: mL Total Allowed Fills: 2 Fills Dispensed: 0 spironolactone 50 mg oral tablet 2 tablet = 100 mg, By Mouth, Daily, # 60 tablet, 11 Refills, Maintenance, 11/17/24 1:33:00 PM EDT, Tablet, [facility], Partial fill upon patient request if the prescription is for a schedule II opioid drug., 188, cm, 11/13/24 20:06:00 EDT, Height, 77.5, kg, 11/10/24 0:53:00 EST, Dry Weight Start Date: 11/17/24 Stop Date: 11/12/25 Status: Ordered Medication Dispense Status: Completed Quantity: 60.0 Unit: tablet Total Allowed Fills: 12 Fills Dispensed: 0 straight cane straight cane, See Instructions, # 1 each, Refills 0, Tot. Refills 0, Maintenance, to use for support for balance issues, 04/28/25 9:34:00 AM EDT, Supply Start Date: 04/28/25 Status: Ordered Medication Dispense Status: Completed Quantity: 1.0 Unit: each Total Allowed Fills: 1 Fills Dispensed: 0 terazosin 10 mg oral capsule 10 mg, 1, capsule, By Mouth, Daily at bedtime, # 90 capsule, Refills 0, Tot. Refills 0, Maintenance, 06/06/21 2:07:00 PM EDT, Do Not Route, Partial fill upon patient request if the prescription is fora schedule II opioid drug. Start Date: 06/06/21 Status: Ordered Medication Dispense Status: Completed Quantity: 90.0 Unit: capsule Total Allowed Fills: 1 Fills Dispensed: 0 tolvaptan 30 mg oral tablet 1 tablet, By Mouth, Daily, # 30 tablet, 5 Refills, Maintenance, 07/03/25 7:35:00 AM EDT, [facility], 188, cm, 06/28/25 7:36:00 EDT, Height, 68.7, kg, 04/20/25 16:40:00 EDT, Dry Weight Start Date: 07/03/25 Status: Ordered Medication Dispense Status: Completed Quantity: 30.0 Unit: tablet Total Allowed Fills: 1 Fills Dispensed: 0 torsemide 20 mg oral tablet 1 tablet = 20 mg, By Mouth, Daily, # 30 tablet, 1 Refills, Maintenance, 04/13/25 12:44:00 PM EDT, Tablet, [facility], Partial fill upon patient request if the prescription is for a schedule II opioid drug., 188, cm, 04/12/25 9:15:00 EDT, Height, 60, kg, 04/01/25 6:42:00 EDT, Dry Weight Start Date: 04/13/25 Status: Ordered Medication Dispense Status: Completed Quantity: 30.0 Unit: tablet Total Allowed Fills: 2 Fills Dispensed: 0 traMADol 50 mg oral tablet 1 tablet = 50 mg, By Mouth, Every 6 hours, PRN Pain , Moderate, # 60 tablet, 0 Refills, Acute 04/12/26 10:00:00 AM EDT, 04/12/25 9:56:00 AM EDT, [facility], Partial fill upon patient request if the prescription is for a schedule II opioid drug., 188, cm, 04/12/25 9:15:00 EDT, Height, 60, kg, 04/01/25 6:42:00 EDT, Dry Weight Start Date: 04/12/25 Stop Date: 04/12/26 Status: Ordered Medication Dispense Status: Completed Quantity: 60.0 Unit: tablet Total Allowed Fills: 1 Fills Dispensed: 0 traMADol 50 mg oral tablet 1 tablet = 50 mg, By Mouth, Every 6 hours, PRN Pain , Moderate, # 60 tablet, 0 Refills, Acute 06/09/26 11:45:00 AM EDT, 04/12/26 10:00:00 AM EDT, [facility], Partial fill upon patient request if the prescription is for a schedule II opioid drug., 188, cm, 05/29/25 15:36:00 EDT, Height, 68.7, kg, 04/20/25 16:40:00 EDT, Dry Weight Start Date: 04/12/26 Stop Date: 06/09/26 Status: Ordered Medication Dispense Status: Completed Quantity: 60.0 Unit: tablet Total Allowed Fills: 1 Fills Dispensed: 0 Vitamin B1 = 100 mg, By Mouth, Daily at bedtime, 0 Refills, Maintenance, 05/16/22 8:54:00 AM EDT, Partial fill upon patient request if the prescription is for a schedule II opioid drug. Start Date: 05/16/22 Status: Ordered Medication Dispense Status: Completed Total Allowed Fills: 1 Fills Dispensed: 0 Vitamin C 500 mg oral tablet 1 tablet = 500 mg, By Mouth, Daily at bedtime, # 30 tablet, 0 Refills, Maintenance, 06/12/20 8:57:00AM EDT, Tablet Start Date: 06/12/20 Status: Ordered Medication Dispense Status: Completed Quantity: 30.0 Unit: tablet Total Allowed Fills: 1 Fills Dispensed: 0 Vyndamax 61 mg oral capsule 1 capsule, By Mouth, Daily in AM, WHOLE., # 30 capsule, 12 Refills, Maintenance, 10/10/24 1:31:00 PM EST, [facility], 187, cm, 09/30/24 8:54:00 EST, Height, 74, kg, 08/10/24 8:00:00 EST, Dry Weight Start Date: 10/10/24 Status: Ordered Medication Dispense Status: Completed Quantity: 30.0 Unit: capsule Total Allowed Fills: 13 Fills Dispensed: 0 Problem List Condition Confirmation Course Effective Dates Status H ealth Status Informant Medication induced coagulopathy Confirmed Active Anemia Confirmed Active Bilateral sacral insufficiency fracture Confirmed Active Cardiac amyloidosis Confirmed Active Atrial fibrillation, chronic Confirmed Active Chronic back pain Confirmed Active Chronic kidney disease, stage 3a 1 Confirmed Active Cirrhosis of liver Confirmed Active Contact dermatitis Confirmed Active CAD (coronary artery disease) Confirmed Active Muscle cramps Confirmed Active Nocturnal leg cramps Confirmed Active Fatigue Confirmed Active Presence of CardioMEMS HF system Confirmed Active Frailty Confirmed Active History of left atrial appendage closure Confirmed Active S/P vertebroplasty Confirmed Active Heart failure with preserved ejection fraction Confirmed Active Hemoptysis Confirmed Active Hemoptysis Confirmed Active 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 Social History Social History Type Response Smoking Status Former smoker, quit more than 30 days ago; Tobacco user in household: Yes; Other: quit 09/2018; Started at age: 19; Stopped at age: 69; entered on: 06/10/24 Sex Sex Representation Male (finding) Goals pt will remain on Coumadin- with therapuetic INR until able to d/c after watchaman Start Date:08/26/24 End Date: Status:Met Progression:Met pt underwent Watcham procedu re due to bleeding around his trach stoma - awaitng 45 day reeval Start Date:08/26/24 End Date: Status:Met Progression:Met pt will keep appt with HF fo r consideration of CardioMems implant for closer volume management Start Date:06/07/24 End Da te: Status:Met Progression:Not Met pt opened in Hf CM due to hi gh risk of readmission - will call Hf clinic with wt gain > 3 lb in 2 d Start Date:06/07/24 End Delfin e: Status:Met Progression:Met Follows Heart Failure Self-Management Plan Start Date:06/07/24 End Date: Status:Met Progression:Met I Will Weigh Daily, Report Gain of 2 lb/24 hr fo r 2 mos Start Date:06/07/24 End Date: Status:Met Progression:Met Follows Medication Regime as Prescribed Start Da te:06/07/24 End Date: Status:Met Progression:Met Patient Care team information Care Team Personnel Name: Roxy Nunes RN Position: [facility] RN Member Role: Primary Care Nurse Name: Marisa Eng RN Position: [facility] AMB Nurse Member Role: Primary Care Nurse Name: Yusuf Beth RN Position: [facility] RN Member Role: Primary Care Nurse Name: Chela Jung MA Position: [facility] KENYETTA GIANG Member Role: Lifetime Consulting Physician Name: Brandie Felder RN Position: S RN Member Role: Primary Care Nurse Name: Maribel Dodd LPN Position: [facility] RN Member Role: Primary Care Nurse Name: Elpidio Morley RN Position: [facility] RN Member Role: Primary Care Nurse Name: Aleks Rodriguez RN Position: [facility] Rad RN Member Role: Primary Care Nurse Name: Carola Louis RN Position: [facility] RN Member Role: Primary Care Nurse Name: Zenaida Freed Position: [facility] Outreach Member Role: Lifetime Consulting Physician Name: Jenny Real RN Position: [facility] RN Member Role: Primary Care Nurse Name: Mervat Dixon RN Position: [facility] RN Member Role: Primary Care Nurse Name: Xiomara Hammond RN Position: [facility] RN Member Role: Primary Care Nurse Name: Dandre Bills RN Position: [facility] RN Member Role: Primary Care Nurse Name: Altagracia Marrufo RN Position: [facility] RN Member Role: Primary Care Nurse Name: Zuleyma Gonzales RN Position: [facility] SN RN Member Role: Primary Care Nurse Name: Michaela Bassett NP Position: [facility] Associate Professional Member Role: Lifetime Consulting Provider Address: [address] [facility] [address] Telecom: Name: Zack Clancy MD Position: [facility] Renal MD Member Role: Lifetime Consulting Physician Address: [address] [facility] [address] Telecom: Name: Faiza Tamayo RN Position: [facility] RN Member Role: Primary Care Nurse Name: Jennifer Lo RN Position: [facility] RN Member Role: Primary Care Nurse Name: Tavares Ceballos RN Position: [facility] RN Member Role: Primary Care Nurse Name: Ira Shrestha RN Position: [facility] RN Member Role: Primary Care Nurse Name: Yusuf White DO Position: [facility] Renal MD Member Role: Lifetime Consulting Physician Address: [address] [facility] [address] Telecom: Name: Sari Granados RN Position: [facility] RN Member Role: Primary Care Nurse Name: Felix Mendoza RN Position: [facility] RN Member Role: Primary Care Nurse Name: Lizabeth Montaño RN Position: [facility] RN Member Role: Primary Care Nurse Name: Irene Odonnell RN Position: [facility] RN Member Role: Primary Care Nurse Name: Renata Cherry Position: [facility] RN Member Role: Primary Care Nurse Name: Chela Nielsen Position: [facility] curing oven attendant Member Role: Blanket Cutter Hand Name: Osiris Portillo RN Position: [facility] RN Member Role: Primary Care Nurse Name: Sarah Arias RN Position: [facility] SN RN Member Role: Primary Care Nurse Name: Alisha Hudson RN Position: [facility] RN Member Role: Primary Care Nurse Name: Phyllis Ramirez RN Position: [facility] RN Member Role: Primary Care Nurse Name: Tuyet Almendarez RN Position: [facility] RN Member Role: Primary Care Nurse Name: Vinita Dailey RN Position: [facility] RN Member Role: Primary Care Nurse Name: Roxy Lewis RN Position: [facility] RN Member Role: Primary Care Nurse Name: Katharine Lozano LPN Position: [facility] RN Member Role: Primary Care Nurse Name: Mariana Ovalle RN Position: [facility] SN RN Member Role: Primary Care Nurse Name: Felix Randle MD Position: [facility] Physician - Primary Care Member Role: PCP Address: [address] [place] [address] Telecom: Name: Sumanth Bee RN Position: [facility] RN Member Role: Primary Care Nurse Name: Italo Kenyon RN Position: [facility] RN Member Role: Primary Care Nurse Name: Lazaro Holloway RN Position: [facility] RN Member Role: Primary Care Nurse Name: Jennifer Pal RN Position: [facility] RN Member Role: Primary Care Nurse Care Team Related Persons Name: LEONARD MCCOLLUM Name: CLAUDIA LAI Name: HEBER DUKES Insurance Providers Guarantor name[facility] Information #: 1 Payer: MEDICARE B Payer Identifier: NA Member Number: [id number] Group Number: NA Subscriber Identifier: NA Relationship to Subscriber: self Coverage Type: NA Coverage Verification Date: NA Telecom: NA Address: [facility], [facility] Information #: 2 Payer: [employer] SECONDARY ONLY Payer Identifier: JONATHAN Member Number: [id number] Group Number: [id number] Subscriber Identifier: NA Relationship to Subscriber: self Coverage Type: MEDICARE Coverage Verification Date: JONATHAN Telecom: JONATHAN Address: NA
--- NOTE | ~2025-07-13 | US_ITS ---
EXAMINATION: US SCROTUM CLINICAL INFORMATION: N43.3 - Hydrocele, unspecified COMPARISON: None available. TECHNIQUE: A sonogram of the scrotum was performed assessing meredith-scale appearance and color Doppler flow. Spectral Doppler analysis of the arterial and venous flow were performed in the testes bilaterally. FINDINGS: RIGHT: Right orchiectomy There is scrotal skin thickening and mild hypervascularity on color Doppler. LEFT: Left testicle measures 3.9 cm. There is heterogeneous echogenicity. Spectral Doppler analysis of the arterial and venous flow is increased in the left testis. Left epididymal head is normal in size. There is a moderate-sized complex hydrocele with septations and hyperechogenic debris. There is blood flow in the septations. Left epididymal Doppler flow is present US/US scrotum IMPRESSION: Possible left epididymal orchitis. Moderate-sized complex chronic-appearing left hydrocele. Right orchiectomy. Electronically signed by: Philipp Engel MD 07/13/2025 02:14 PM [facility]
--- OUTSIDE RECORDS SUMMARY | 2025-07-13 16:41 | XMS_ITS | Encounter Summary ---
Author Organization [facility] Address [address] [place] [address] Care Team Providers Care Engraver Copperplate Name Role Phone Felix Randle MD Primary Care Provider [phone] Encounter Details Date Type Department Care Team (Late st Contact Info) Description 02/22/2025 Lab Requisition [facility] [address] [facility] [place] [address] Lala Low MD [address] [place] [address] Encounter for other general examination Social History [...] LAB CHEMISTRY METHOD 02/22/2025 10:50 AM EDT [facility] Potassium 4.5 3.5 - 5.5 mmol/L LAB CHEMISTRY METHOD 02/22/2025 10:50 AM EDT [facility] Chloride 89(L) 96 - 110 mmol/L LAB CHEMISTRY METHOD 02/22/2025 10:50 AM T [facility] CO2 30 21 - 32 mmol/L LAB CHEMISTRY METHOD 02/22/2025 10:50 AM [facility] Anion Gap 11 3 - 11 LAB CHEMISTRY METHOD 02/22/2025 10:50 AM [facility] Glucose 76 70 - 100 mg/dL LAB CHEMISTRY METHOD 02/22/2025 10:50 AM [facility] BUN 38(H) 5 - 25 mg/dL LAB CHEMISTRY METHOD 02/22/2025 10:50 AM [facility] Creatinine 1.14 0.70 - 1.30 mg/dL LAB CHEMISTRY METHOD 02/22/2025 10:50 AM [facility] eGFR 66 >=60 mL/min/1. 73m2 LAB CHEMISTRY METHOD 02/22/2025 10:50 AM [facility] Comment:Calculation based on the Chronic Kidney Disease Epidemiology Collaboration (CKD-EPI) equation refit without adjustment for race. BUN/Creatinine Ratio 33.3 LAB CHEMISTRY METHOD 02/22/2025 10:50 AM [facility] Calcium 9.6 8.5 - 10.5 mg/dL LAB CHEMISTRY METHOD 02/22/2025 10:50 AM [facility] Blood Venous blood specimen / Unknown Venipuncture / Unknown 02/22/2025 5:34 AM EDT 02/22/2025 9:43 AM EDT us Lala Low MD LAB BLOOD ORDERABLES Final Resu lt [facility] [address] [place] [address], documented in this encounter Visit Diagnoses Diagnosis Encounter for other general examination documented in this encounter Care Teams Engraver Copperplate Relationship Specialty Start Date End Date Felix Randle MD [address] [place], [place] PCP - General Internal Medicine 06/24/12 documented as of this encounter
--- OUTSIDE RECORDS SUMMARY | 2025-07-13 16:41 | XMS_ITS | Data Portability ---
Author Organization [facility] [employer] [facility], Main Office Address [address] [place] [address] Care Team Providers Care User Experience Architect Name Role Phone [facility] ([facility] OTHER CAMERON AMAYA Primary Care Provider [...] Recorded Time Primary malignant neoplasm of larynx [id number] Completed 201811/08/2024 Not Available [facility] 20:03:28 Laryngect chuckie Completed 201811/10/2024 MARTIN VALDES [address] [facility], [address], [place], [address] , [facility] syndications 00:42:07 Muscle weakness 17275080 Completed 201811/08/2024 Not Available [facility] 19:54:05 Hyperlipi demia 02208769 Completed 201811/08/2024 Not Available [facility] 19:54:06 Anesthesi a of skin 864411288 Completed 201811/08/2024 Not Available [facility] 19:54:06 Abnormal gait 44018186 Completed 201811/08/2024 Not Available [facility] 19:54:07 Atrial fibrillat ion 58249701 Completed 201811/08/2024 Not Available [facility] 20:04:44 Essential hypertens ion 78552864 Completed 201811/08/2024 MARTIN VALDES [address] [facility], [address], [place], [address] , [facility] 5 00:46:05 Chronic obstructi ve pulmonary disease 22038987 Completed 201811/08/2024 Not Available [facility] 20:10:25 Gastroeso phageal reflux disease without esophagit is 637330314 Completed 201811/08/2024 Not Available [facility] 20:11:20 Tracheost chuckie present 393993271 Active 2018 Not Available [facility] 19:54:13 Anemia 607471573 Completed 201811/08/2024 Not Available [facility] 20:05:12 Bleeding from nose 079776896 Completed 201811/08/2024 Not Available [facility] 20:05:43 Low blood pressure 46349954 Completed 201811/08/2024 Not Available [facility] 20:06:44 Abnormal gait 19332372 Completed 201811/08/2024 Not Available [facility] 20:07:09 Dysphagia 13185840 Completed 201811/08/2024 Not Available [facility] 19:54:12 Dysphonia 47959558 Completed 201811/08/2024 Not Available [facility] 20:07:47 Hyperlipi demia 39841286 Completed 201811/08/2024 Not Available [facility] 20:08:20 Anesthesi a of skin 172029233 Completed 201811/08/2024 Not Available [facility] 20:09:20 Muscle weakness 01560725 Completed 201811/08/2024 Not Available [facility] 20:09:53 Anemia 593493964 Active 2024 Not Available [facility] 20:46:43 Atrial fibrillat ion 86577391 Active 2024 Not Available [facility] 20:46:45 Cardiomyo shweta 75292207 Completed 202411/10/2024 MARTIN VALDES [address] , [address], [place], [address] , [facility] 5 00:38:57 Amyloidos is 45336005 Completed 202411/10/2024 MARTIN VALDES [address], [address], [place], [address] , [facility] 5 00:38:35 Implantat ion to cardiovas cular system Completed 202411/10/2024 MARTIN VALDES [address], [address], [place], [address] , [facility] 5 00:38:35 Diastolic heart failure 151405185 Active 2024 Not Available [facility] 20:43:14 Rheumatic tricuspid valve regurgita tion 00937895 Completed 202411/10/2024 MARTIN VALDES [address], [address], [place], [address] , [facility] 5 00:42:07 Hypo-osmo lality and or hyponatre deisi 746268796 Active 2024 Not Available [facility] 5 20:44:30 Implantat ion procedure Completed 202411/10/2024 MARTIN VALDES [address], [address], [place], [address] , [facility] 5 00:38:35 Chronic obstructi ve pulmonary disease 41731411 Active 2024 Not Available [facility] 5 07:30:42 Hemoptysi s 57060081 Completed 202411/10/2024 MARTIN VALDES [address] , [address], [place], [address] , [facility] 5 00:38:35 Primary malignant neoplasm of laryngeal cartilage 383111682 Completed 202411/10/2024 2019 MARTIN VALDES [address] , [address], [place], [address] , [facility] 5 00:42:07 Alcoholic cirrhosis 804341668 Completed 202411/10/2024 MARTIN VALDES [address] , [address], [place], [address] , [facility] 5 00:42:07 Cramp in lower leg associate d with rest 498014963 Completed 202411/10/2024 MARTIN VALDES [address], [address], [place], [address] , [facility] 5 00:38:35 Chronic kidney disease stage 3A 452133937 Active 2024 Not Available [facility] 5 07:36:45 Acute kidney injury 35033882 Completed 202411/10/2024 MARTIN VALDES [address], [address], [place], [address] , [facility] [address] [facility] 5 00:38:35 Hyperlipi demia 99449292 Active 2024 Not Available [facility] 5 07:37:17 Atheroscl erosis of coronary artery without angina pectoris 03805532883 4103 Completed 202411/10/2024 MARTIN VALDES [address] [facility], [address], [place], [address] , [facility] [address] [facility] 5 00:38:35 Gastroeso phageal reflux disease without esophagit is 835364874 Active 2024 Not Available [facility] 5 07:35:09 Heart disease 67727050 Active 2024 MARTIN VALDES [address] [facility] [facility] [address], [place], [address] , [facility] [employer] [facility] 5 00:23:37 Essential hypertens ion 07551889 Active 2024 MARTIN VALDES [address], [address], [place], [address] , [facility] [employer] 5 00:46:05 Problem Notes None recorded. Medical Equipment None Reported. Allergies Allergen ID Allergen Name Allergen Category Reaction Reaction Severity Criticality Documentation Date Start Date Code Code System Note Provider Name and Address Organization Details Recorded Time 05085 Venofer medicatio n Not available Not available Not available 11/10/2024 90719 9 RxNorm MARTIN VALDES [address] [facility], [address], [place], [address], [facility] 5 00:54:51 Medications Name Sig Start Date [...] Smoking Status Former Smoker MARTIN VALDES [address] [facility] [address], [address], [place], [address], [facility] [address] [facility] 11/10/2024 00:52:31 Do You Have An Advance Directive? Yes Information not available 11/10/2024 What Is Your Code Status? Full Code No Dialysis Information not available 11/10/2024 [facility] Information not available 11/10/2024 What Was The [...] (RSV) MAB, unspecified 4 completed Tico pollack [facility] 11/09/2024 14:39:06 Td(adult) unspecified formulation 2 completed Tico pollack [facility] 11/09/2024 14:39:23 Pneumococcal conjugate PCV 13 3 completed Tico pollack [facility] 11/09/2024 14:39:37 pneumococcal polysaccharide PPV23 9 completed Tico [place] null, [facility] 11/09/2024 14:39:49 influenza, unspecified formulation 0 completed Tico [place] null, [facility] 11/09/2024 14:40:04 influenza, unspecified formulation 1 completed Tico [place] null, [facility] 11/09/2024 14:40:08 influenza, unspecified formulation 2 completed Tico [place] null, [facility] 11/09/2024 14:40:13 influenza, unspecified formulation 3 completed Tico [place] null, [facility] 11/09/2024 14:40:17 influenza, unspecified formulation 4 completed Tico [place] null, [facility] 11/09/2024 14:40:22 SARS-COV-2 (COVID-19) vaccine, UNSPECIFIED 1 completed Tico [place] null, [facility] 11/09/2024 14:40:37 SARS-COV-2 (COVID-19) vaccine, UNSPECIFIED 1 completed Tico [place] null, [facility] 11/09/2024 14:40:41 SARS-COV-2 (COVID-19) vaccine, UNSPECIFIED 1 completed Tico [place] null, [facility] 11/09/2024 14:40:46 SARS-COV-2 (COVID-19) vaccine, UNSPECIFIED 2 completed Tico [place] null, [facility] 11/09/2024 14:40:52 SARS-COV-2 (COVID-19) vaccine, UNSPECIFIED 2 completed Tico [place] null, [facility] 11/09/2024 14:41:03 SARS-COV-2 (COVID-19) vaccine, UNSPECIFIED 3 completed Tico [place] null, [facility] 11/09/2024 14:41:09 SARS-COV-2 (COVID-19) vaccine, UNSPECIFIED 3 completed Tico [facility], [facility] 11/09/2024 14:41:14 SARS-COV-2 (COVID-19) vaccine, UNSPECIFIED 4 completed Tico [facility], [facility] 11/09/2024 14:41:20 zoster, unspecified formulation 2 completed Tico [facility], [facility] 11/09/2024 14:41:31 zoster, unspecified formulation 3 completed Tico [facility], [facility] 11/09/2024 14:41:37 Past Encounters Encounter ID Performer Location Encounter Start Date Encounter Closed Date Diagnosis/Indication Diagnosis SNOMED-CT Code Diagnosis ICD10 Code Diagnosis IMO Codes Diagnosis Note [id number] MARTIN VALDES [place] [address] [place] [address] 11/09/2024 12:09:33 11/10/2024 15:45:36 Tracheostomy present 987864217 Z93.0 presented to ED with hemoptysis from [...] bleed Chronic ki dney disease stage 3A 686345516 N18.31 acute on chronicabn labs hyponatrem ia and hypokalmia -resolveda void nephrotoxi c medsBaseli ne Cr ~ 1.2.follow up as outpatient Continue Fluid restrictio n,cont lokelmapot assium restricted diet Diastolic heart failure 268942875 I50.30 Echo: LVEF 60 to 65% no regional wall motion abnormalit iesSevere tricuspid regurgitat ion.contin ue torsemide 40 mgfluid rest 1500 ccfollow up 1-2 weeks with cardsConti nue dapagliflo zin 10 mg dailycont to hold Acetazolam nam , HCTZ, and Spironolac tone for now Anemia 372125079 D64.9 S/p 1 unit PRBC 10/23.cont Ferrous Sulfatemon itor labs Heart disease 89650737 I 51.9 hx Amyloidosi s cardiomyop athy,Lisa nue dapagliflo zin, Vyndamax Hypo-osmol ality and or hyponatremia 145308877 E87.1 seen by renal believes it to [...] level Gastroesop hageal reflux disease without esophagitis 398692451 K21.9 continue PPI Chronic back pain 142858 002 M54.9 cont BaclofenLi docaine patch Essential hypertension 42051389 I10 cont terazosinm onitor bp Hyperlipidemia 51108751 E78.5 continue zocor qd Health Concerns Section Related Observation LastModified by Organization Detai ls LastModified Time None Recorded Concern Status LastModified by Organization Details LastModified Time None Recorded Advance Directives Directive Y: Payers Insurance Date Sequence Insurance Name Policy Number Policy López Covered Member ID López Member ID Guarantor Name 11/09/2024 1 [place] [employer] Sanket Little [id number] Sanket Little 11/09/2024 2 AARP (MEDICARE SUPPLEMENT) Sanket Little [id number] Sanket Little Notes Date Note Type Note [...] with bleeding from proximal trachea. Admitted to [facility] after acute care stay. Presented to [facility] with massive hemoptysis from his tracheal stoma [...] to ED for evaluation. MARTIN VALDES [address] [facility], [address], [place], [address], [facility] - [facility] 11/10/2024 00:57:32
--- OUTSIDE RECORDS SUMMARY | 2025-07-13 16:41 | XMS_ITS | Clinical Summary ---
Author Organization [facility] Address [address] [place] [address] Care Team Providers Care Glue Size Machine Operator Name Role Phone Felix Randle [...] 09/09/2022, 06/25/2022 Medical Devices Implanted Type Area On Call Pharmacy Technician Device Identifier Shelf Expiration Date Model / Serial / Lot Lens Intraocular Biconvex Aspheric Uv Blocking Hydrophobic Acrylic One Piece [id number] [employer] - [id number] - [id number] Implanted:Qty: 1 on 05/29/2023 by Casey Zaman MD at [facility] [employer] 11/24/2026 ZCB00 / [id number] / [id number] 1 Piece Acrylic Aspheric Iol Implanted:Qty: 1 on 04/17/2023 by Casey Zaman MD at [facility] [employer] 12/29/2026 ZCB00 24 / [id number] / Insurance SUPP [facility] MEDICARE Advance Directives Healthcare Agents on File Name Relationship Healthcare Agent [facility] Khanh Meza Other Health Care Agent Care Teams Glue Size Machine Operator Relationship Specialty Start Date End Date Felix Randle MD [address] [facility] [facility] [address] [address] [place] [address] PCP - General Internal Medicine 03/06/23
--- OUTSIDE RECORDS SUMMARY | 2025-07-13 16:41 | XMS_ITS | Encounter Summary ---
Author Organization [facility] Address [address] [place] [address] Care Team Providers Care Vice President Business Development Name Role Phone Felix Randle MD Primary Care Provider [phone] Encounter Details Date Type Department Care Team (Late st Contact Info) Description 02/27/2025 Lab Requisition [facility] - Main Lab [address] [place] [address] Lala Low MD [address] [place] [address] Encounter for other general examination Social History [...] AM EDT) WBC 7.6 4.8 - 10.8 K/[facility] LAB HEMETOLOGY METHOD 02/27/2025 11:48 AM EDT [facility] RBC 4.10(L) 4.50 - 5.50 M/mcL LAB HEMETOLOGY METHOD 02/27/2025 11:48 AM [facility] LAB Hemoglobin 11.8(L) 13.5 - 17.5 g/dL LAB HEMETOLOGY METHOD 02/27/2025 11:48 AM [facility] LAB Hematocrit 37.6(L) 42.0 - 54.0 % LAB HEMETOLOGY METHOD 02/27/2025 11:48 AM [facility] LAB MCV 91.0 79.0 - 98.0 FL LAB HEMETOLOGY METHOD 02/27/2025 11:48 AM [facility] LAB MCH 28.6 27.0 - 32.0 pcg LAB HEMETOLOGY METHOD 02/27/2025 11:48 AM [facility] LAB MCHC 31.4(L) 32.0 - 37.0 g/dL LAB HEMETOLOGY METHOD 02/27/2025 11:48 AM [facility] LAB RDW 19.4(H) 11.0 - 15.0 % LAB HEMETOLOGY METHOD 02/27/2025 11:48 AM [facility] LAB Platelets 170 130 - 400 K/mcL LAB HEMETOLOGY METHOD 02/27/2025 11:48 AM [facility] LAB MPV 9.7 7.0 - 11.0 FL LAB HEMETOLOGY METHOD 02/27/2025 11:48 AM [facility] LAB NRBC 0.0 <1.0 % LAB HEMETOLOGY METHOD 02/27/2025 11:48 AM [facility] LAB NRBC Absolute 0.00 <0.10 K/mcL LAB HEMETOLOGY METHOD 02/27/2025 11:48 AM [facility] LAB Blood Venous blood specimen / Unknown Venipuncture / Unknown 02/27/2025 6:03 AM EDT 02/27/2025 10:57 AM EDT us Lala Low MD LAB BLOOD ORDERABLES Final Resu lt [facility] LAB [address] [place] [address], * (ABNORMAL) Basic metabolic panel (02/27/2025 6:03 AM EDT) Sodium 129(L) 133 - 145 mmol/L LAB CHEMISTRY METHOD 02/27/2025 1:18 PM EDT [facility] LAB Potassium 4.4 3.5 - 5.5 mmol/L LAB CHEMISTRY METHOD 02/27/2025 1:18 PM [facility] LAB Chloride 89(L) 96 - 110 mmol/L LAB CHEMISTRY METHOD 02/27/2025 1:18 PM [facility] LAB CO2 31 21 - 32 mmol/L LAB CHEMISTRY METHOD 02/27/2025 1:18 PM [facility] LAB Anion Gap 9 3 - 11 LAB CHEMISTRY METHOD 02/27/2025 1:18 PM [facility] LAB Glucose 103(H) 70 - 100 mg/dL LAB CHEMISTRY METHOD 02/27/2025 1:18 PM [facility] LAB BUN 33(H) 5 - 25 mg/dL LAB CHEMISTRY METHOD 02/27/2025 1:18 PM [facility] LAB Creatinine 1.12 0.70 - 1.30 mg/dL LAB CHEMISTRY METHOD 02/27/2025 1:18 PM [facility] LAB eGFR 68 >=60 mL/min/1. 73m2 LAB CHEMISTRY METHOD 02/27/2025 1:18 PM [facility] LAB Comment:Calculation based on the Chronic Kidney Disease Epidemiology Collaboration (CKD-EPI) equation refit without adjustment for race. BUN/Creatinine Ratio 29.5 LAB CHEMISTRY METHOD 02/27/2025 1:18 PM [facility] LAB Calcium 9.1 8.5 - 10.5 mg/dL LAB CHEMISTRY METHOD 02/27/2025 1:18 PM EDT [facility] LAB Blood Venous blood specimen / Unknown Venipuncture / Unknown 02/27/2025 6:03 AM EDT 02/27/2025 10:57 AM EDT us Lala Low MD LAB BLOOD ORDERABLES Final Resu lt [facility] [address] [place] [address], documented in this encounter Visit Diagnoses Diagnosis Encounter for other general examination documented in this encounter Care Teams Vice President Business Development Relationship Specialty Start Date End Date Felix Randle MD [address] [facility] [address] [place], [place] PCP - General Internal Medicine 06/24/12 documented as of this encounter
--- OUTSIDE RECORDS SUMMARY | 2025-07-13 16:41 | XMS_ITS | Encounter Summary ---
Author Organization [facility] Address [address] [place] [address] Care Team Providers Care Rehabilitation Consultant Name Role Phone Felix Randle MD Primary Care Provider [phone] Encounter Details Date Type Department Care Team (Late st Contact Info) Description 02/23/2025 Lab Requisition [facility] - Main Lab [address] [place] [address] Lala Low MD [address] [place] [address] Encounter for other general examination Social History [...] AM EDT) WBC 10.5 4.8 - 10.8 K/[facility] LAB HEMETOLOGY METHOD 02/23/2025 11:[address] [facility] RBC 4.10(L) 4.50 - 5.50 M/mcL LAB HEMETOLOGY METHOD 02/23/2025 11:09 AM [facility] LAB Hemoglobin 11.8(L) 13.5 - 17.5 g/dL LAB HEMETOLOGY METHOD 02/23/2025 11:09 AM [facility] LAB Hematocrit 37.3(L) 42.0 - 54.0 % LAB HEMETOLOGY METHOD 02/23/2025 11:09 AM [facility] LAB MCV 91.9 79.0 - 98.0 FL LAB HEMETOLOGY METHOD 02/23/2025 11:09 AM [facility] LAB MCH 29.1 27.0 - 32.0 pcg LAB HEMETOLOGY METHOD 02/23/2025 11:09 AM [facility] LAB MCHC 31.6(L) 32.0 - 37.0 g/dL LAB HEMETOLOGY METHOD 02/23/2025 11:09 AM [facility] LAB RDW 19.9(H) 11.0 - 15.0 % LAB HEMETOLOGY METHOD 02/23/2025 11:09 AM [facility] LAB Platelets 194 130 - 400 K/mcL LAB HEMETOLOGY METHOD 02/23/2025 11:09 AM [facility] LAB MPV 9.4 7.0 - 11.0 FL LAB HEMETOLOGY METHOD 02/23/2025 11:09 AM [facility] LAB NRBC 0.0 <1.0 % LAB HEMETOLOGY METHOD 02/23/2025 11:09 AM [facility] LAB NRBC Absolute 0.00 <0.10 K/mcL LAB HEMETOLOGY METHOD 02/23/2025 11:09 AM [facility] LAB Blood Venous blood specimen / Unknown Venipuncture / Unknown 02/23/2025 6:40 AM EDT 02/23/2025 10:06 AM EDT us Lala Low MD LAB BLOOD ORDERABLES Final Resu lt [facility] [address] [place] [address], * (ABNORMAL) Basic metabolic panel (02/23/2025 6:40 AM EDT) Sodium 125(L) 133 - 145 mmol/L LAB CHEMISTRY METHOD 02/23/2025 11:[address] [facility] LAB Potassium 5.2 3.5 - 5.5 mmol/L LAB CHEMISTRY METHOD 02/23/2025 11:56 AM [facility] LAB Chloride 92(L) 96 - 110 mmol/L LAB CHEMISTRY METHOD 02/23/2025 11:56 AM [facility] LAB CO2 21 21 - 32 mmol/L LAB CHEMISTRY METHOD 02/23/2025 11:56 AM [facility] LAB Anion Gap 12(H) 3 - 11 LAB CHEMISTRY METHOD 02/23/2025 11:56 AM [facility] LAB Glucose 69(L) 70 - 100 mg/dL LAB CHEMISTRY METHOD 02/23/2025 11:56 AM [facility] LAB BUN 41(H) 5 - 25 mg/dL LAB CHEMISTRY METHOD 02/23/2025 11:56 AM [facility] LAB Creatinine 1.21 0.70 - 1.30 mg/dL LAB CHEMISTRY METHOD 02/23/2025 11:56 AM [facility] LAB eGFR 62 >=60 mL/min/1. 73m2 LAB CHEMISTRY METHOD 02/23/2025 11:56 AM [facility] LAB Comment:Calculation based on the Chronic Kidney Disease Epidemiology Collaboration (CKD-EPI) equation refit without adjustment for race. BUN/Creatinine Ratio 33.9 LAB CHEMISTRY METHOD 02/23/2025 11:56 AM EDT [facility] Calcium 10.0 8.5 - 10.5 mg/dL LAB CHEMISTRY METHOD 02/23/2025 11:[address] [facility] LAB Blood Venous blood specimen / Unknown Venipuncture / Unknown 02/23/2025 6:40 AM EDT 02/23/2025 10:06 AM EDT us Lala Low MD LAB BLOOD ORDERABLES Final Resu lt [facility] [address] [place] [address], documented in this encounter Visit Diagnoses Diagnosis Encounter for other general examination documented in this encounter Care Teams Rehabilitation Consultant Relationship Specialty Start Date End Date Felix Randle MD [address] [facility] [address] [place], [place] PCP - General Internal Medicine 06/24/12 documented as of this encounter
--- OUTSIDE RECORDS SUMMARY | 2025-07-13 16:41 | XMS_ITS | Clinical Summary ---
Author Organization [address] [facility] Address [address] [place] [address] Phone Care Team Providers Care Electronics Warfare Technician Name Role Phone Felix Randle MD Primary Care Provider [phone] Encounters Date Type Department Care Team Description 06/15/2025 8:11 AM EDT - 06/15/2025 11:59 PM EDT Hospital Encounter [facility] Bone Density [address] [place] [phone] Age-related osteoporosis with current pathol fracture of vertebra, with delayed healing, subsequent encounter; Age-related osteoporosis with current pathological fracture, vertebra(e), initial encounter for fracture ([facility] V24, [facility] V28) Discharge Disposition: Home or Self Care 05/04/2025 1:24 PM EDT - 05/04/2025 11:59 PM EDT Hospital Encounter [facility] Nuclear Medicine [address] [place] [phone] Discharge Disposition: Home or Self Care 05/04/2025 10:15 AM EDT - 05/04/2025 11:59 PM EDT Hospital Encounter [facility] Nuclear Medicine [address] [place] [address] Fracture, lumbar vertebra, compression, sequela Discharge Disposition: [...] pathological fracture, vertebra(e), initial encounter for fracture ([facility] V24, [facility] V28) NM BONE/JOINT SCAN SPECT CT Routine [...] probability of hip fracture of 7.9%. Code 40944 -------- FINAL REPORT -------- Dictated By: Navarro Ewing Dictated Date: 06/15/2025 09:39 ET Assigned Physician: Navarro Ewing Reviewed and Electronically Signed By: Navarro Ewing Signed Date: 06/15/2025 09:42 ET Workstation ID: [id number] Transcribed By: Self Edit Transcribed Date: 06/15/2025 [...] bone mineral density at L1-2 is 0.787 gm/dx8invpd is 66% of that of young normals [...] probability of hip fracture of 7.9%. Code 91369 -------- FINAL REPORT -------- Dictated By: Navarro Ewing Dictated Date: 06/15/2025 09:39 ET Assigned Physician: Navarro Ewing Reviewed and Electronically Signed By: Navarro Ewing Signed Date: 06/15/2025 09:42 ET Workstation ID: [id number] Transcribed By: Self Edit Transcribed Date: 06/15/2025 [...] Signed Date: 05/04/2025 16:16 ET Workstation ID: [id number] Transcribed By: Self Edit Transcribed Date: 05/04/2025 [...] these are only partially included in the amomv-yt-czse but there is associated radiotracer uptake. Incidental [...] deformity at L4. Maximum height loss of mlehmbrgvwnqt28%. There is associated radiotracer uptake. T11 compression fracture with approximately 50% height loss. There isassociated radiotracer uptake. Superior endplate fracture at T10 with approximately 50% height loss.There is associated radiotracer uptake. Irregular sclerosis in the sacral ala consistent with bilateral sacralinsufficiency fractures; these are only partially included in weyxllxh-mh-mwxq but there is associated radiotracer uptake. Incidental [...] Signed Date: 05/04/2025 16:16 ET Workstation ID: [id number] Transcribed By: Self Edit Transcribed Date: 05/04/2025 15:50 ET Emeka Salgado MD [facility] PROCEDURES Final Result * (ABNORMAL) Basic metabolic panel (02/27/2025 6:03 AM EDT) Sodium 129(L) 133 - 145 mmol/L LAB CHEMISTRY METHOD 02/27/2025 1:18 PM [facility] Potassium 4.4 3.5 - 5.5 mmol/L LAB CHEMISTRY METHOD 02/27/2025 1:18 PM [facility] Chloride 89(L) 96 - 110 mmol/L LAB CHEMISTRY METHOD 02/27/2025 1:18 PM [facility] CO2 31 21 - 32 mmol/L LAB CHEMISTRY METHOD 02/27/2025 1:18 PM [facility] Anion Gap 9 3 - 11 LAB CHEMISTRY METHOD 02/27/2025 1:18 PM [facility] Glucose 103(H) 70 - 100 mg/dL LAB CHEMISTRY METHOD 02/27/2025 1:18 PM [facility] BUN 33(H) 5 - 25 mg/dL LAB CHEMISTRY METHOD 02/27/2025 1:18 PM [facility] Creatinine 1.12 0.70 - 1.30 [...] Resu lt [facility] [address] [place] [address], from Last 3 Months or Most Recently Relevant to Health Maintenance Insurance MEDICARE [facility] Care Teams Electronics Warfare Technician Relationship Specialty Start Date End Date Felix Randle MD [address] [facility] [address] [place], [place] PCP - General Internal Medicine 06/24/12
--- OUTSIDE RECORDS SUMMARY | 2025-07-13 16:41 | XMS_ITS | Encounter Summary ---
Author Organization [facility] Address [address] [place] [address] Care Team Providers Care Rubber Tile Floor Layer Name Role Phone Felix Randle MD Primary Care Provider [phone] Encounter Details Date Type Department Care Team (Late st Contact Info) Description 02/20/2025 Lab Requisition [facility] - Main Lab [address] [facility] [place] [address] Lala Low MD [address] [place] [address] Encounter for other general examination Social History [...] LAB CHEMISTRY METHOD 02/20/2025 11:10 AM EDT [facility] Potassium 4.8 3.5 - 5.5 mmol/L LAB CHEMISTRY METHOD 02/20/2025 11:10 AM EDT [facility] Chloride 99 96 - 110 [...] MD LAB BLOOD ORDERABLES Final Resu lt [facility] [address] [place] [address], documented in this encounter Visit Diagnoses Diagnosis Encounter for other general examination documented in this encounter Care Teams Rubber Tile Floor Layer Relationship Specialty Start Date End Date Felix Randle MD [facility] [address] [place], [place] PCP - General Internal Medicine 06/24/12 documented as of this encounter
--- OUTSIDE RECORDS SUMMARY | 2025-07-13 16:41 | XMS_ITS | Encounter Summary ---
Author Organization [facility] Address [address] [place] [address] Care Team Providers Care Circuit Board Inspector Name Role Phone Felix Randle MD Primary Care Provider [phone] Encounter Details Date Type Department Care Team (Late st Contact Info) Description 11/09/2024 Lab Requisition [facility] - Main Lab [address] [place] [address] Imer Taylor MD [address] [place] [address] [address] [facility] [phone] Hypo-osmolality and hyponatremia Social History Tobacco [...] Resul t [facility] [address] [place] [address], [place] [phone] * (ABNORMAL) Complete blood count (11/09/2024 5:15 [...] t [facility] [address] [place] [address], documented in this encounter Visit Diagnoses Diagnosis Hypo-osmolality and hyponatremia documented in this encounter Care Teams Circuit Board Inspector Relationship Specialty Start Date End Date Felix Randle MD [address] [place], [place] PCP - General Internal Medicine 06/24/12 documented as of this encounter
--- OUTSIDE RECORDS SUMMARY | 2025-07-13 16:41 | XMS_ITS | Encounter Summary ---
Author Organization [facility] Address [address] [place] [address] Care Team Providers Care Lost Charge Card Clerk Name Role Phone Felix Randle MD Primary Care Provider [phone] Encounter Details Date Type Department Care Team (Late st Contact Info) Description 02/24/2025 Lab Requisition [facility] - Main Lab [address] [facility] [place] [address] Lala Low MD [address] [place] [address] Encounter for other general examination Social History [...] LAB CHEMISTRY METHOD 02/24/2025 10:28 AM EDT [facility] Blood Venous blood specimen / Unknown Venipuncture / Unknown 02/24/2025 5:30 AM EDT 02/24/2025 9:41 AM EDT us Lala Low MD LAB BLOOD ORDERABLES Final Resu lt [facility] [address] [place] [address], [place] [phone] * (ABNORMAL) Basic metabolic panel (02/24/2025 5:30 AM EDT) Sodium 130(L) 133 - 145 mmol/L LAB CHEMISTRY METHOD 02/24/2025 10:28 AM [facility] Potassium 3.9 3.5 - 5.5 mmol/L LAB CHEMISTRY METHOD 02/24/2025 10:28 AM [facility] Chloride 93(L) 96 - 110 mmol/L LAB CHEMISTRY METHOD 02/24/2025 10:28 AM [facility] CO2 27 21 - 32 mmol/L LAB CHEMISTRY METHOD 02/24/2025 10:28 AM [facility] Anion Gap 10 3 - 11 LAB CHEMISTRY METHOD 02/24/2025 10:28 AM [facility] Glucose 94 70 - 100 mg/dL LAB CHEMISTRY METHOD 02/24/2025 10:28 AM [facility] BUN 39(H) 5 - 25 mg/dL LAB CHEMISTRY METHOD 02/24/2025 10:28 AM [facility] Creatinine 1.12 0.70 - 1.30 mg/dL LAB CHEMISTRY METHOD 02/24/2025 10:28 AM [facility] eGFR 68 >=60 mL/min/1. 73m2 LAB CHEMISTRY METHOD 02/24/2025 10:28 AM [facility] Comment:Calculation based on the Chronic Kidney Disease Epidemiology Collaboration (CKD-EPI) equation refit without adjustment for race. BUN/Creatinine Ratio 34.8 LAB CHEMISTRY METHOD 02/24/2025 10:28 AM EDT [facility] Calcium 8.4(L) 8.5 - 10.5 mg/dL LAB CHEMISTRY METHOD 02/24/2025 10:28 AM EDT [facility] Blood Venous blood specimen / Unknown Venipuncture / Unknown 02/24/2025 5:30 AM EDT 02/24/2025 9:41 AM EDT us Lala Low MD LAB BLOOD ORDERABLES Final Resu lt [facility] [address] [place] [address], documented in this encounter Visit Diagnoses Diagnosis Encounter for other general examination documented in this encounter Care Teams Lost Charge Card Clerk Relationship Specialty Start Date End Date Felix Randle MD [facility] [address] [place], [place] PCP - General Internal Medicine 06/24/12 documented as of this encounter
--- OUTSIDE RECORDS SUMMARY | 2025-07-13 16:41 | XMS_ITS | Encounter Summary ---
Author Organization [facility] Address [address] [place] [address] Phone Care Team Providers Care Pinking Machine Operator Name Role Phone Felix Randle MD Primary Care Provider Encounter Details Date Type Department Care Team (Late st Contact Info) Description 08/20/2023 Procedure Pass [facility], Ct Scan - [address] [address] Social History Tobacco Use Types Packs/Day Years [...] 08/20/2023 6:33 PM EST Jerica Delarosa * [place] Suicide Severity Rating Scale (Screener/Recent Self-Report) Question [...] on filedocumented in this encounter Care Teams Pinking Machine Operator Relationship Specialty Start Date End Date Felix Randle MD [address] [place] [address] PCP - General Internal Medicine 08/20/23 documented as of this encounter Additional Source Comments The information contained in this document represents components of the legal health record. It is not the complete legal health record.[facility]
--- OUTSIDE RECORDS SUMMARY | 2025-07-13 16:41 | XMS_ITS | Encounter Summary ---
Author Organization [facility] Address [address] [place] [address] Care Team Providers Care Plasterer Rough Name Role Phone Felix Randle MD Primary Care Provider [phone] [phone] Encounter Details Date Type Department Care Team (Late st Contact Info) Description 02/18/2025 Lab Requisition [facility] - Main Lab [address] [facility] [place] [address] Lala Low MD [address] [place] [address] Encounter for other general examination Social History [...] CBC auto differential (02/18/2025 5:51 AM EDT) [facility] WBC 6.0 4.8 - 10.8 K/mcL LAB HEMETOLOGY METHOD 02/18/2025 12:19 PM [facility] RBC 3.80(L) 4.50 - 5.50 M/mcL LAB HEMETOLOGY METHOD 02/18/2025 12:19 PM [facility] Hemoglobin 11.0(L) 13.5 - 17.5 g/dL LAB HEMETOLOGY METHOD 02/18/2025 12:19 PM [facility] Hematocrit 35.6(L) 42.0 - 54.0 % LAB HEMETOLOGY METHOD 02/18/2025 12:19 PM [facility] MCV 93.7 79.0 - 98.0 FL LAB HEMETOLOGY METHOD 02/18/2025 12:19 PM [facility] MCH 28.9 27.0 - 32.0 pcg LAB HEMETOLOGY METHOD 02/18/2025 12:19 PM [facility] MCHC 30.9(L) 32.0 - 37.0 g/dL LAB HEMETOLOGY METHOD 02/18/2025 12:19 PM [facility] RDW 20.4(H) 11.0 - 15.0 % LAB HEMETOLOGY METHOD 02/18/2025 12:19 PM [facility] Platelets 162 130 - 400 K/mcL LAB HEMETOLOGY METHOD 02/18/2025 12:19 PM [facility] MPV 10.5 7.0 - 11.0 FL LAB HEMETOLOGY METHOD 02/18/2025 12:19 PM [facility] NRBC 0.0 <1.0 % LAB HEMETOLOGY METHOD 02/18/2025 12:19 PM [facility] NRBC Absolute 0.00 <0.10 K/mcL LAB HEMETOLOGY METHOD 02/18/2025 12:19 PM [facility] Neutrophils Relative 70.4 % LAB HEMETOLOGY METHOD 02/18/2025 12:19 PM [facility] Lymphocytes Relative 11.0 % LAB HEMETOLOGY METHOD 02/18/2025 12:19 PM [facility] Monocytes Relative 10.8 % LAB HEMETOLOGY METHOD 02/18/2025 12:19 PM [facility] Eosinophils Relative 6.0 % LAB HEMETOLOGY METHOD 02/18/2025 12:19 PM [facility] Basophils Relative 0.5 % LAB HEMETOLOGY METHOD 02/18/2025 12:19 PM [facility] Immature Granulocytes Relative 1.3 % LAB HEMETOLOGY METHOD 02/18/2025 12:19 PM [facility] Neutrophils Absolute 4.22 1.50 - 7.00 K/mcL LAB HEMETOLOGY METHOD 02/18/2025 12:19 PM [facility] Lymphocytes Absolute 0.66(L) 1.00 - 5.00 K/mcL LAB HEMETOLOGY METHOD 02/18/2025 12:19 PM [facility] Monocytes Absolute 0.65 0.20 - 1.00 K/mcL LAB HEMETOLOGY METHOD 02/18/2025 12:19 PM [facility] Eosinophils Absolute 0.36 0.00 - 0.50 K/mcL LAB HEMETOLOGY METHOD 02/18/2025 12:19 PM [facility] Basophils Absolute 0.03 0.00 - 0.20 K/mcL LAB HEMETOLOGY METHOD 02/18/2025 12:19 PM [facility] Immature Granulocytes Absolute 0.08(H) 0.00 - 0.03 K/mcL LAB HEMETOLOGY METHOD 02/18/2025 12:19 PM EDT [facility] Blood Venous blood specimen / Unknown Venipuncture / Unknown 02/18/2025 5:51 AM EDT 02/18/2025 10:28 AM EDT us Lala Low MD LAB BLOOD ORDERABLES Final Resu lt Performing Organization Address City/[facility]/ZIP Co de Phone Number [facility] [address] [place] [address], [place] [phone] * (ABNORMAL) Prothrombin time with INR (02/18/2025 [...] ORDERABLES Final Resu lt Performing Organization Address City/[facility]/ZIP Co de Phone Number [facility] [address] [place] [address], [place] [phone] * Magnesium (02/18/2025 5:51 AM EDT) Magnesium 2.5 1.9 - 2.6 mg/dL LAB CHEMISTRY METHOD 02/18/2025 12:30 PM EDT [facility] Blood Venous blood specimen / Unknown Venipuncture / Unknown 02/18/2025 5:51 AM EDT 02/18/2025 10:28 AM EDT us Lala Low MD LAB BLOOD ORDERABLES Final Resu lt [facility] [address] [place] [address], * (ABNORMAL) Comprehensive metabolic panel (02/18/2025 5:51 AM EDT) Sodium 130(L) 133 - 145 mmol/L LAB CHEMISTRY METHOD 02/18/2025 12:36 PM [facility] Potassium 3.5 3.5 - 5.5 mmol/L LAB CHEMISTRY METHOD 02/18/2025 12:36 PM [facility] Chloride 95(L) 96 - 110 mmol/L LAB CHEMISTRY METHOD 02/18/2025 12:36 PM [facility] CO2 29 21 - 32 mmol/L LAB CHEMISTRY METHOD 02/18/2025 12:36 PM [facility] Anion Gap 6 3 - 11 LAB CHEMISTRY METHOD 02/18/2025 12:36 PM [facility] Glucose 93 70 - 100 mg/dL LAB CHEMISTRY METHOD 02/18/2025 12:36 PM [facility] BUN 21 5 - 25 mg/dL LAB CHEMISTRY METHOD 02/18/2025 12:36 PM [facility] Creatinine 1.23 0.70 - 1.30 mg/dL LAB CHEMISTRY METHOD 02/18/2025 12:36 PM [facility] eGFR 60 >=60 mL/min/1. 73m2 LAB CHEMISTRY METHOD 02/18/2025 12:36 PM [facility] Comment:Calculation based on the Chronic Kidney Disease Epidemiology Collaboration (CKD-EPI) equation refit without adjustment for race. BUN/Creatinine Ratio 17.1 LAB CHEMISTRY METHOD 02/18/2025 12:36 PM [facility] Calcium 9.1 8.5 - 10.5 [...] g/dL LAB CHEMISTRY METHOD 02/18/2025 12:36 PM [facility] Total Bilirubin 1.0 0.0 - 1.4 mg/dL LAB CHEMISTRY METHOD 02/18/2025 12:36 PM T [facility] Blood Venous blood specimen / Unknown Venipuncture / Unknown 02/18/2025 5:51 AM EDT 02/18/2025 10:28 AM EDT us Lala Low MD LAB BLOOD ORDERABLES Final Resu lt [facility] [address] [place] [address], documented in this encounter Visit Diagnoses Diagnosis Encounter for other general examination documented in this encounter Care Teams Plasterer Rough Relationship Specialty Start Date End Date Felix Randle MD [address] [place], [place] PCP - General Internal Medicine 06/24/12 documented as of this encounter
--- OUTSIDE RECORDS SUMMARY | 2025-07-13 16:42 | XMS_ITS | Continuity of Care Document ---
Author Organization [place] - [facility], [facility] Address [address] [place] [address] Care Team Providers Care Case Liner Name Role Phone GUSTAVO GOLDSMITH Assessment Encounter Date Assessment Date Assessment LastModified by Organization Details LastModified Time 05/19/2025 05/19/2025 The patient has difficulty swallowing [...] Details Appointments Establish ed 15 2025 09:15A Inez LO MD Not available Not available Not available Lab None recorded. Referral None recorded. Procedures None recorded. Surgeries None recorded. Imaging None recorded. Medication Orders None recorded. Patient TargetsNo targets recorded. Patient Instructions Encounter Date Encounter Id Patient Instructions Last Modified By Organization Details Last Modified Time 05/19/2025 [id number] Prepare for winter by using humidification patches [...] was required prior to finalizing the note. belén Not available 05/19/2025 16:00:35 Reason for Referral None Reported. 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 Tobacco abuse; Note: Date Diagnosed : 08/07/2014 1:24 PM (305.1) Not Available [facility] 4 02:50:45 Difficult y speaking Active 2014 Hoarsenes s; Note: Date Diagnosed : 01/12/2015 5:28 PM (784.49) Not Available [facility] 4 02:50:47 Deviated nasal septum 069191297 Active 2014 Nasal septal deviation ; Note: Date Diagnosed : 08/07/2014 1:24 PM (470) ; Start Date : 4 Deviate d nasal septum; Note: Date Diagnosed : 03/02/2015 1:09 PM (J34.2) [mapped from ICD9 code: 470] Not Available [facility] 4 02:50:47 Finding of resonance of voice 367643511 Active 2014 Other voice and resonance disorders ; Note: Date Diagnosed : 03/02/2015 1:09 PM (R49.8) [mapped from ICD9 code: 784.49] Not Available [facility] 4 02:50:41 Tobacco dependenc e caused by cigarette s 85717755089 108887 Active 2014 Nicotine dependenc e, cigarette s, uncomplic ated; Note: Date Diagnosed : 03/02/2015 1:09 PM (F17.210) [mapped from ICD9 code: 305.1] Not Available [facility] 4 02:50:43 Edema of larynx 43733958 Active 2014 Laryngeal edema; Note: Date Diagnosed : 08/07/2014 1:24 PM (478.6) ; Start Date : 4 Edema of larynx; Note: Date Diagnosed : 03/02/2015 1:09 PM (J38.4) [mapped from ICD9 code: 478.6] Not Available [facility] 4 02:50:46 Sensorine ural hearing loss of bilateral ears 033635677 Active 2014 Sensorine ural hearing loss, bilateral ; Note: Date Diagnosed : 5 2:42 PM (H90.3) Not Available [facility] 4 02:50:42 Neoplasm of uncertain behavior of larynx 65822974 Active 2015 Neoplasm of uncertain behavior of larynx; Note: Date Diagnosed : 03/20/2016 9:08 AM (D38.0) Not Available [facility] 4 02:50:43 Dysphonia 21220002 Active 2016 Hoarsenes s; Note: Date Diagnosed : 09/24/2016 9:16 AM (R49.0) Not Available [facility] 4 02:50:47 Disorder of vocal cord 85250193 Active 2016 Leukoplak ia of vocal cords; Note: Date Diagnosed : 10/16/2016 11:47 AM (J38.3) Not Available [facility] 4 02:50:45 Lesion of oral mucosa 72153252698 39319 Active 2016 Other lesions of oral mucosa; Note: Date Diagnosed : 06/01/2017 2:12 PM (K13.79) Not Available [facility] 4 02:50:48 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 Active 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, unspecifi ed; Note: Date Diagnosed : 8 2:33 PM (C32.9) Not Available [facility] 4 02:50:44 Bleeding from nose 280929239 Active 2018 Epistaxis ; Note: Date Diagnosed : 10/20/2018 9:07 AM (R04.0) Not Available [facility] 4 02:50:43 Tracheost chuckie hemorrhag e 83971992 Active 2018 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; Note: Date Diagnosed : 11/23/2018 2:21 PM (J95.01) Not Available [facility] 4 02:50:42 Impacted cerumen of bilateral ears 24862509359 02657 Active 2018 Impacted cerumen, bilateral ; Note: Date Diagnosed : 02/24/2019 3:34 PM (H61.23) Impacte d cerumen, bilateral ; Note: Date Diagnosed : 12/05/2016 3:29 PM (H61.23) ; Start Date : 7 Not Available [facility] 4 02:50:46 Follow-up visit Active 2018 Encounter for follow-up examinati on after completed treatment for malignant neoplasm; Note: Date Diagnosed : 9 4:14 PM (Z08) Encount er for follow-up examinati on after completed treatment for condition s other than malignant neoplasm; Note: Date Diagnosed : 10/12/2018 2:03 PM (Z09) ; Start Date : 9 Not Available [facility] 4 02:50:48 History of malignant neoplasm of larynx 218741238 Active 2018 Primary tumor location: right supraglot tic Tumor staging: T1aN0 SCCA Treatment : Laryngect chuckie and RT Date of treatment completio n: Surgery 09/29/18, RT 12/2003 Oncology team: Beau Samaniego MD [address] [place] [address], [facility] RAHAT zaragoza, [address] [facility] - [facility] [place] 5 09:20:31 Hemoptysi s 85385249 Active 2021 Hemoptysi s; Note: Date Diagnosed : 12/12/2021 9:19 AM (R04.2) Not Available [facility] 4 02:50:44 Tinnitus of left ear 94694997331 06 Active 2023 Tinnitus, left ear; Note: Date Diagnosed : 11/17/2023 2:35 PM (H93.12) Not Available [facility] 4 02:50:44 Dysphagia 37781237 Active 2024 Tanisha pollack [place] - [facility] 5 17:35:00 Problem Notes None recorded. Procedures Surgical History Date Name Laterality Status Provider Name and Address Organization Details Recorded Time 05/19/2025 Nasopharyng oscopy_DP completed BENIGNO LO MD [address] [facility],[place] [address], [place], [address], [place] - [facility] 05/18/2025 21:29:00 11/16/2024 Nasopharyng oscopy_DP completed BENIGNO LO MD [address] [facility],[place] [address], [place], [address], [facility] - [facility] 11/16/2024 15:46:18 09/13/2024 Comp Audio with Tymps - 05196 & 52199 completed DAYAN ALCALA [address] [facility],[place] [address], [place], [address], [place] - [facility] 09/13/2024 15:32:20 Imaging Results None recorded. Procedure [...] mg tablet 01/05 completed Medicati on ID: [id number] Du ration Value: 30 Brand Name: atenolol Send Method: E-Prescr ibed Sub s Allowed: subs OK Medic ationGen ericName : atenolol Not Available Not Available Not Available acetazola mide 250 mg tablet TAKE 2 TABLETS BY MOUTH EVERY THURSDAY AND THURSDAY active Not Available Not Available No t Available torsemide 10 mg tablet 01/05 completed Medicati on ID: [id number] D uration Value: 30 Brand Name: torsemid e Send Method: E-Prescr ibed Sub s Allowed: subs OK Medic ationGen ericName : torsemid e Not Available Not Available Not Available clopidogr el 75 mg tablet TAKE ONE TABLET BY MOUTH EVERY DAY active Not Available Not Available No t Available digoxin 250 mcg (0.25 mg) tablet 09/13 completed Medicati on ID: [id number] B rand Name: digoxin Send Method: E-Prescr [...] mg capsule 01/05 completed Medicati on ID: [id number] Du ration Value: 30 Brand Name: tamsulos [...] iron) tablet 11/16 completed Medicati on ID: [id number] D uration Value: 60 Brand Name: ferrous [...] 24 hr 09/13 completed Medicati on ID: [id number] B rand Name: metoprol ol succinat e [...] mg tablet 09/13 completed Medicati on ID: [id number] B rand Name: lisinopr il Send Method: E-Prescr ibed Sub s Allowed: subs OK Medic ationGen ericName : lisinopr il Not Available Not Available Not Available terazosin 10 mg capsule TAKE ONE CAPSULE BY MOUTH EVERY DAY active Not Available Not Available No t Available finasteri de 5 mg tablet 01/05 completed Medicati on ID: [id number] D uration Value: 90 Brand Name: finaster nma Send Method: E-Prescr ibed Sub s Allowed: [...] mg tablet 09/24 completed Medicati on ID: [id number] Du ration Value: 20 Reason: () Brand [...] mg tablet 01/05 completed Medicati on ID: [id number] Du ration Value: 5 Brand Name: oxycodon [...] Not Available Vitals Date Recorded Body height Provider Name an d Address Organization Details Last Updated DateTime 05/19/2025 185.[address], [address], [place] - [facility] 05/19/2025 14:58:11 Date Recorded Body mass index (BMI) Body weight Provider Name and Address Organization Details Last Updated DateTime 05/19/2025 17.7 kg/m2 62398.38 g TORSTEN JUDD [place] - [facility] 05/19/2025 15:57:01 Social History None recorded. Functional Status None recorded. Mental Status None recorded. Family History Nothing Reported. Medical History No medical history recorded. Past Encounters Encounter ID Performer Location Encounter Start Date Encounter Closed Date Diagnosis/Indication Diagnosis SNOMED-CT Code Diagnosis ICD10 Code Diagnosis IMO Codes Diagnosis Note [id number] BENIGNO LO MD [facility] [address] [place] [address] 05/19/2025 14:48:43 05/19/2025 16:02:52 Malignant neoplasm of larynx 085860752 C32.9 nasopharyn x exam was benign Dysphagia 31483172 R13.1 0 Health Concerns Section Related Observation LastModified by Organization Detai ls LastModified Time None Recorded Concern Status LastModified by Organization Details LastModified Time None Recorded Payers Encounter Date Sequence Insurance Name Policy Number Policy López Covered Member ID López Member ID Guarantor Name 05/19/2025 1 [place] [employer] Sanket Little [id number] Sanket Little 05/19/2025 2 [employer] (MEDICARE SUPPLEMENT) Sanket Little [id number] Sanket Little Notes Date Note Type Note Provider Name and Address Organization Details Recorded Time 05/19/2025 text/html Primary tumor location: right supraglottic Tumor staging: T1aN0 SCCA Treatment: Laryngectomy and RT Date of treatment completion: Surgery 09/29/18, RT 12/2003 Oncology team: Beau Samaniego after watchman was converted from coumadin to plavix and ASA. was admitted to [facility] for hemoptysis. identified a pulmonary bleed the clots were removed with bronchoscopy. PV 09/13/24 Beau audio B mod [facility] - [facility] Sanket Little is a 75-year-old male who [...] job due to his health challenges. BENIGNO LO MD [address] [place] [address], [address], [facility] - [facility] 05/19/2025 16:01:46
--- OUTSIDE RECORDS SUMMARY | 2025-07-13 16:42 | XMS_ITS | Encounter Summary ---
Author Organization [facility] Address [address] [place] [address] Phone Care Team Providers Care Art Gallery Internship Name Role Phone Felix Randle MD Primary Care Provider Encounter Details Date Type Department Care Team (Latest Contact Info) Description 04/13/2024 Transcribe Orders [facility] Phleb [facility] [address] [address] Re Beyer NP [address] [place] [address] Iron deficiency anemia, unspecified iron deficiency anemia [...] VITAMIN B12 791 232 - 1,245 pg/mL [facility] Blood 04/13/2024 4:15 PM EDT 04/13/2024 4:21 PM EDT us Re Beyer STAFF MECHANICAL ENGINEER LAB BLOOD BKR ORDERABLES Final Result [address] [address] * (ABNORMAL) PT-INR (04/13/2024 4:15 PM EDT) Pathologist [facility] PT 39.2(H) 10.2 - 12.9 sec [facility] INR 3.4(H) 0.9 - 1.1 [facility] Comment:Therapeutic range fo r oral Vitamin K antagonists: 2.0-3.5 Blood 04/13/2024 4:15 PM EDT 04/13/2024 4:21 PM EDT Re Beyer NP LAB BLOOD BKR ORDERABLES Final Result Performing Organization Address [facility]/ZIP Co de Phone Number [address] [address] * (ABNORMAL) Iron and iron binding capacity (04/13/2024 4:15 PM EDT) Pathologist [facility] IRON 52 45 - 160 ug/dL [facility] IRON BINDING CAPACITY 268 228 - 428 ug/dL [facility] TRANSFERRIN SATURAT. 19(L) 20 - 55 % [facility] Blood 04/13/2024 4:15 PM EDT 04/13/2024 4:21 PM EDT Re Beyer NP LAB BLOOD BKR ORDERABLES Final Result Performing Organization Address City/[facility]/ZIP Co de Phone Number [address] [address] * (ABNORMAL) Comprehensive metabolic panel (04/13/2024 4:15 PM EDT) SODIUM 137 133 - 146 mmol/L [facility] POTASSIUM 3.5 3.3 - 5.1 mmol/L [facility] CHLORIDE 99 96 - 108 mmol/L [facility] CO2 27 21 - 35 mmol/L [facility] BUN 13 6 - 19 mg/dL [facility] CREATININE 1.10 0.5 - 1.5 mg/dL [facility] GLUCOSE 120(H) 70 - 99 mg/dL [facility] ALBUMIN 4.4 3.9 - 4.8 g/dL [facility] TOTAL PROTEIN 7.0 6.5 - 8.0 g/dL [facility] CALCIUM 9.0 8.4 - 10.3 mg/dL [facility] ALKALINE PHOSPHATASE 97 39 - 117 U/L [facility] TOTAL BILIRUBIN 1.0 0.0 - 1.2 mg/dL [facility] AST 28 0 - 37 U/L [facility] ALT 12 0 - 40 U/L [facility] GLOBULIN 2.6 1 - 4.8 g/dL [facility] EGFR 70 >59 mL/min/1.7 3m2 [facility] Comment:Estimated glomerular filtration rate calculated using the CKD-EPI refit equation. ANION GAP 15 10 - 20 mmol/L [facility] Blood 04/13/2024 4:15 PM EDT 04/13/2024 4:21 PM EDT Re Beyer NP LAB BLOOD BKR ORDERABLES Final Result [facility] [address] [place] [address] * (ABNORMAL) CBC (04/13/2024 4:15 PM EDT) WBC 5.61 4.00 - 11.00 K/uL [facility] RBC 3.12(L) 3.90 - 5.69 M/uL [facility] HGB 9.6(L) 12.4 - 17.3 g/dL [facility] HCT 30.6(L) 37.0 - 51.0 % [facility] PLT 108(L) 140 - 430 K/uL [facility] MCV 98.1(H) 78.0 - 97.0 fL [facility] MCH 30.8 25.0 - 33.0 pg [facility] MCHC 31.4(L) 32.0 - 36.0 g/dL [facility] RDW 16.2(H) 11.0 - 15.0 % [facility] MPV 10.3 8.4 - 12.8 fl [facility] Blood 04/13/2024 4:15 PM EDT 04/13/2024 4:21 PM EDT us Re Beyer NP LAB BLOOD BKR ORDERABLES Final Result Performing Organization Address [facility]/ZIP Co de Phone Number [address] [address] * Immunoglobulin A (04/13/2024 4:15 PM EDT) IgA 152 70 - 400 mg/dL [facility] Blood 04/13/2024 4:15 PM EDT 04/13/2024 4:21 PM EDT us Re Beyer NP LAB BLOOD BKR ORDERABLES Final Result Performing Organization Address City/[facility]/ZIP Co de Phone Number [address] [address] * Tissue transglutaminase IgA (04/13/2024 4:15 PM EDT) TTG IGA ANTIBODY <1.2 <4.0 (Negative) U/mL [facility] Blood 04/13/2024 4:15 PM EDT 04/13/2024 4:21 PM EDT Re Beyer NP LAB BLOOD BKR ORDERABLES Final Result [facility] [address] [place] [address] documented in this encounter Visit Diagnoses Diagnosis Iron deficiency anemia, unspecified iron deficiency anemia type- Primary documented in this encounter Care Teams [employer] Internship Relationship Specialty Start Date End Date Felix Randle MD [address] [place] [id number] PCP - General Internal Medicine 08/20/23 documented as of this encounter Additional Source Comments The information contained in this document represents components of the legal health record. It is not the complete legal health record.[facility]
--- OUTSIDE RECORDS SUMMARY | 2025-07-13 16:42 | XMS_ITS | Continuity of Care Document ---
Author Organization [place] - [facility], [facility] Address [address] [place] [address] Care Team Providers Care Distribution Collection Operator Name Role Phone GUSTAVO GOLDSMITH OTHER Assessment [...] that the solution could be purchased at [facility] and [place] [facility] if needed. Follow-up was recommended for next [...] YANNICK [id number], [address], [place], [address], 07/11/2025 13:52:32 Patient TargetsNo targets recorded. Patient Instructions Encounter Date Encounter Id Patient Instructions Last Modified By Organization Details Last Modified Time 07/11/2025 [id number] Use 0.9% sodium chloride solution for nebulizer as prescribed: 5 mL four times daily. Obtain solution from [facility] [employer] [place] in [place] if needed. 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 Tobacco abuse; Note: Date Diagnosed : 08/07/2014 1:24 PM (305.1) Not Available [facility] 4 02:50:45 Difficult y speaking Active 2014 Hoarsenes s; Note: Date Diagnosed : 01/12/2015 5:28 PM (784.49) Not Available [facility] 4 02:50:47 Deviated nasal septum 076942815 Active 2014 Nasal septal deviation ; Note: Date Diagnosed : 08/07/2014 1:24 PM (470) ; Start Date : 4 Deviate d nasal septum; Note: Date Diagnosed : 03/02/2015 1:09 PM (J34.2) [mapped from ICD9 code: 470] Not Available [facility] 4 02:50:47 Finding of resonance of voice 209158488 Active 2014 Other voice and resonance disorders ; Note: Date Diagnosed : 03/02/2015 1:09 PM (R49.8) [mapped from ICD9 code: 784.49] Not Available [facility] 4 02:50:41 Tobacco dependenc e caused by cigarette s 06246206258 194600 Active 2014 Nicotine dependenc e, cigarette s, uncomplic ated; Note: Date Diagnosed : 03/02/2015 1:09 PM (F17.210) [mapped from ICD9 code: 305.1] Not Available [facility] 4 02:50:43 Edema of larynx 36101465 Active 2014 Laryngeal edema; Note: Date Diagnosed : 08/07/2014 1:24 PM (478.6) ; Start Date : 4 Edema of larynx; Note: Date Diagnosed : 03/02/2015 1:09 PM (J38.4) [mapped from ICD9 code: 478.6] Not Available [facility] 4 02:50:46 Sensorine ural hearing loss of bilateral ears 736894677 Active 2014 Sensorine ural hearing loss, bilateral ; Note: Date Diagnosed : 5 2:42 PM (H90.3) Not Available [facility] 4 02:50:42 Neoplasm of uncertain behavior of larynx 65502890 Active 2015 Neoplasm of uncertain behavior of larynx; Note: Date Diagnosed : 03/20/2016 9:08 AM (D38.0) Not Available [facility] 4 02:50:43 Dysphonia 69264050 Active 2016 Hoarsenes s; Note: Date Diagnosed : 09/24/2016 9:16 AM (R49.0) Not Available [facility] 4 02:50:47 Disorder of vocal cord 48829447 Active 2016 Leukoplak ia of vocal cords; Note: Date Diagnosed : 10/16/2016 11:47 AM (J38.3) Not Available [facility] 4 02:50:45 Lesion of oral mucosa 02693806138 47832 Active 2016 Other lesions of oral mucosa; Note: Date Diagnosed : 06/01/2017 2:12 PM (K13.79) Not Available [facility] 4 02:50:48 Malignant neoplasm of larynx 274561185 Active 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, unspecifi ed; Note: Date Diagnosed : 8 2:33 PM (C32.9) Not Available [facility] 4 02:50:44 Bleeding from nose 532103872 Active 2018 Epistaxis ; Note: Date Diagnosed : 10/20/2018 9:07 AM (R04.0) Not Available [facility] 4 02:50:43 Tracheost chuckie hemorrhag e 94690463 Active 2018 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; Note: Date Diagnosed : 11/23/2018 2:21 PM (J95.01) Not Available [facility] 4 02:50:42 Impacted cerumen of bilateral ears 55355457153 47458 Active 2018 Impacted cerumen, bilateral ; Note: Date Diagnosed : 02/24/2019 3:34 PM (H61.23) Impacte d cerumen, bilateral ; Note: Date Diagnosed : 12/05/2016 3:29 PM (H61.23) ; Start Date : 7 Not Available [facility] 4 02:50:46 Follow-up visit Active 2018 Encounter for follow-up examinati on after completed treatment for malignant neoplasm; Note: Date Diagnosed : 9 4:14 PM (Z08) Encount er for follow-up examinati on after completed treatment for condition s other than malignant neoplasm; Note: Date Diagnosed : 10/12/2018 2:03 PM (Z09) ; Start Date : 9 Not Available [facility] 4 02:50:48 History of malignant neoplasm of larynx 180147367 Active 2018 Primary tumor location: right supraglot tic Tumor staging: T1aN0 SCCA Treatment : Laryngect chuckie and RT Date of treatment completio n: Surgery 09/29/18, RT 12/2003 Oncology team: Beau Samaniego MD [address] [place] [address], [facility] RAHAT zaragoza, [address] , [facility] - [facility] 5 09:20:31 Hemoptysi s 42053459 Active 2021 Hemoptysi s; Note: Date Diagnosed : 12/12/2021 9:19 AM (R04.2) Not Available [facility] 4 02:50:44 Tinnitus of left ear 27662177327 06 Active 2023 Tinnitus, left ear; Note: Date Diagnosed : 11/17/2023 2:35 PM (H93.12) Not Available [facility] 4 02:50:44 Dysphagia 24773183 Active 2024 Tanisha pollack [place] - [facility] 17:35:00 Problem Notes None recorded. Procedures Surgical History Date Name Laterality Status Provider Name and Address Organization Details Recorded Time 05/19/2025 Nasopharyng oscopy_DP completed BENIGNO LO MD [address] [facility],[address], [address], [facility] 05/18/2025 21:29:00 11/16/2024 Nasopharyng oscopy_DP completed BENIGNO LO MD [address] [facility],[address], [address], [facility] 11/16/2024 15:46:18 09/13/2024 Comp Audio with Tymps - 86007 & 71485 completed DAYAN ALCALA [address] [facility],[address], [address], [facility] 09/13/2024 15:32:20 Imaging Results None recorded. Procedure [...] mg tablet 01/05 completed Medicati on ID: [id number] Du ration Value: 30 Brand Name: atenolol Send Method: E-Prescr ibed Sub s Allowed: subs OK Medic ationGen ericName : atenolol Not Available Not Available Not Available acetazola mide 250 mg tablet TAKE 2 TABLETS BY MOUTH EVERY THURSDAY AND THURSDAY active Not Available Not Available No t Available torsemide 10 mg tablet 01/05 completed Medicati on ID: [id number] D uration Value: 30 Brand Name: torsemid e Send Method: E-Prescr ibed Sub s Allowed: subs OK Medic ationGen ericName : torsemid e Not Available Not Available Not Available clopidogr el 75 mg tablet TAKE ONE TABLET BY MOUTH EVERY DAY active Not Available Not Available No t Available digoxin 250 mcg (0.25 mg) tablet 09/13 completed Medicati on ID: [id number] B rand Name: digoxin Send Method: E-Prescr [...] mg capsule 01/05 completed Medicati on ID: [id number] Du ration Value: 30 Brand Name: tamsulos [...] iron) tablet 11/16 completed Medicati on ID: [id number] D uration Value: 60 Brand Name: ferrous [...] 24 hr 09/13 completed Medicati on ID: [id number] B rand Name: metoprol ol succinat e [...] mg tablet 09/13 completed Medicati on ID: [id number] B rand Name: lisinopr il Send Method: E-Prescr ibed Sub s Allowed: subs OK Medic ationGen ericName : lisinopr il Not Available Not Available Not Available terazosin 10 mg capsule TAKE ONE CAPSULE BY MOUTH EVERY DAY active Not Available Not Available No t Available finasteri de 5 mg tablet 01/05 completed Medicati on ID: [id number] D uration Value: 90 Brand Name: finaster [...] mg tablet 09/24 completed Medicati on ID: [id number] Du ration Value: 20 Reason: () Brand [...] mg tablet 01/05 completed Medicati on ID: [id number] Du ration Value: 5 Brand Name: oxycodon [...] Updated DateTime 07/11/2025 185.42 cm 19.4 kg/m2 63331.08 g [facility] 07/11/2025 13:37:00 Social History None recorded. Functional Status None recorded. Mental Status None recorded. Family History Nothing Reported. Medical History No medical history recorded. Past Encounters Encounter ID Performer Location Encounter Start Date Encounter Closed Date Diagnosis/Indication Diagnosis SNOMED-CT Code Diagnosis ICD10 Code Diagnosis IMO Codes Diagnosis Note [id number] BENIGNO LO MD [facility] [address] [address] 07/11/2025 13:13:57 07/11/2025 13:53:11 Malignant neoplasm of larynx 713819533 C32.9 Tracheosto my hemorrhage 63417128 J95.01 Health Concerns Section Related Observation LastModified by Organization Detai ls LastModified Time None Recorded Concern Status LastModified by Organization Details LastModified Time None Recorded Payers Encounter Date Sequence Insurance Name Policy Number Policy López Covered Member ID López Member ID Guarantor Name 07/11/2025 1 [place]ICARE [place]: [employer] Sanket Little [id number] Sanket Little 07/11/2025 2 [employer] (MEDICARE SUPPLEMENT) Sanket Little [id number] Sanket Little Notes Date Note Type Note Provider Name and Address Organization Details Recorded Time 07/11/2025 text/html Primary tumor location: right supraglottic Tumor staging: T1aN0 SCCA Treatment: Laryngectomy and RT Date of treatment completion: Surgery 09/29/18, RT 12/2003 Oncology team: Beau Samaniego after watchman was converted from coumadin to plavix and ASA. was admitted to [facility] for hemoptysis. identified a pulmonary bleed the [...] chloride solution with relief. BENIGNO LO MD [address] [place] [address], [address], [place] - [facility] 07/11/2025 13:54:10
--- OUTSIDE RECORDS SUMMARY | 2025-07-13 16:42 | XMS_ITS | Clinical Summary ---
Author Organization [facility] Address [address] [place] [id number] Phone Care Team Providers Care Filler Mixer Name Role Phone eFlix Randle MD Primary Care Provider Allergies Active Allergy Reactions Criticality Noted Date Comments Iron Sucrose Bleeding,Hypotension High 02/24/2023 hypotension Medications ascorbic acid, vitamin C, (VITAMIN C) 500 MG tablet Take 500 mg by mouth daily. Active calcium carbonate (CALCIUM 500 ORAL) Take by mouth. Activ e ferrous sulfate 325 mg (65 mg north fork iron) tablet Take 325 mg by mouth [...] he took 05/17 -He is followed by [facility] heart failure service Dr Leonard -He was [...] setting of known cardiac amyloidosis. Followed at [facility]. Significant weight gain over the last several [...] involvement with the specialty cardiology practice at [facility]. He is on tafamidis, ordered as nonformulary [...] EDT): -He was very recently hospitalized at [facility] 05/13 - 05/14 for evaluation of hemoptysis [...] on digoxin (this is not on his [facility] discharge list however it was mentioned in [...] ecorded Are you denied basic needs s [facility] as food, clothing, or medical care? No 05/18/2024 In the past 12 months have y ou been in a relationship with a person who hurts, threatens, or tries to control you? No 05/18/2024 Are you denied basic needs s [facility] as food, clothing, or medical care? [...] EDT) SODIUM 136 133 - 146 mmol/L [facility] CHLORIDE 98 96 - 108 mmol/L [facility] POTASSIUM 3.6 3.3 - 5.1 mmol/L [facility] CO2 27 21 - 35 mmol/L [facility] BUN 14 6 - 19 mg/dL [facility] CREATININE 1.20 0.5 - 1.5 mg/dL [facility] GLUCOSE 92 70 - 99 mg/dL [facility] CALCIUM 9.0 8.4 - 10.3 mg/dL [facility] EGFR 63 >59 mL/min/1.7 3m2 [facility] Comment:Estimated glomerular filtration rate calculated using the CKD-EPI refit equation. ANION GAP 15 10 - 20 mmol/L [facility] Blood 05/20/2024 6:40 AM EDT 05/20/2024 6:48 AM EDT us Mary Lentz MD LAB BLOOD BKR ORDERABLES Fi nal Result [address] [address] from Last 3 Months or Most Recently Relevant to Health Maintenance Insurance MEDICARE PART A & B [facility] MEDICARE SUPPLEMENT MEDICARE PART A & B [facility] MEDICARE SUPPLEMENT MEDICARE PART A & B [facility] MEDICARE SUPPLEMENT MEDICARE PART A & B [facility] MEDICARE SUPPLEMENT MEDICARE PART A & B [facility] MEDICARE SUPPLEMENT MEDICARE PART A & B [facility] MEDICARE SUPPLEMENT MEDICARE PART A & B MEDICARE SUPPLEMENT MEDICARE PART A & B [facility] [place] [phone] MEDICARE PART A & B [facility] MEDICARE SUPPLEMENT Advance Directives For more information, please contact: [phone] (9AM - 5PM [facility], Thursday-Thursday) Documents on File Type Date Recorded 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 05/23/2024 3:08 PM * Full Code (Latest Code Status on File) Date Activated Date Inactivated Comments 05/18/2024 4:14 PM Question Answer Comments Code Status Confirmed With: Patient * Full Code Date Activated Date Inactivated Comments 03/09/2024 7:08 PM 05/18/2024 4:14 PM Question Answer Comments Code Status Confirmed With: Patient Care Teams Filler Mixer Relationship Specialty Start Date End Date Felix Randle MD [address] [place] [id number] PCP - General Internal Medicine 08/20/23 Additional Source Comments The information contained in this document represents components of the legal health record. It is not the complete legal health record.[facility]
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
--- OUTSIDE RECORDS SUMMARY | 2025-07-13 16:42 | XMS_ITS | Encounter Summary ---
Author Organization [facility] Address [address] [place] [address] Phone Care Team Providers Care Metal Milling Machine Operator Name Role Phone Felix Randle MD Primary Care Provider Encounter Details Date Type Department Care Team (Late st Contact Info) Description 03/09/2024 Procedure Pass [facility] [address] [place] [address] Social History Tobacco Use Types Packs/Day Years [...] 8:35 PM EDT Brittni Talamantes, JESS * Lea Suicide Severity Rating Scale (Screener/Recent Self-Report) Question [...] filedocumented in this encounter Care Teams Metal Milling Machine Operator Relationship Specialty Start Date End Date Felix Randle MD [address] [place] [address] PCP - General Internal Medicine 08/20/23 documented as of this encounter Additional Source Comments The information contained in this document represents components of the legal health record. It is not the complete legal health record.[facility]
--- OUTSIDE RECORDS SUMMARY | 2025-07-13 16:42 | XMS_ITS | Encounter Summary ---
Author Organization [facility] Address [address] [place] [address] Phone Care Team Providers Care Office Cleaner Name Role Phone Felix Randle MD Primary Care Provider Encounter Details Date Type Department Care Team (Latest Contact Info) Description 04/14/2024 Transcribe Orders Virtual Department [address] [place] [address] Re Beyer NP [address] [place] [address] Anemia, unspecified type (Primary Dx) Social History [...] clinician's provided indication for this examination in [facility]: Outside Radiology Order; anemia TECHNIQUE: US Abdominal [...] clinician's provided indication for this examination in [facility]:Outside Radiology Order; anemia TECHNIQUE: US Abdominal limited [...] failure. 2. Question small gallstone. Re Beyer ALLIANCES CONSULTANT IMG US ABDOMEN Final Res ult documented in this encounter Visit Diagnoses Diagnosis Anemia, unspecified type- Primary Anemia, unspecified type documented in this encounter Care Teams Office Cleaner Relationship Specialty Start Date End Date Felix Randle MD [address] [place] [address] PCP - General Internal Medicine 08/20/23 documented as of this encounter Additional Source Comments The information contained in this document represents components of the legal health record. It is not the complete legal health record.[facility]
--- OUTSIDE RECORDS SUMMARY | 2025-07-13 16:42 | XMS_ITS | Encounter Summary ---
Author Organization [facility] Address [address] [place] [address] Phone Care Team Providers Care Creel Hand Name Role Phone Felix Randle MD Primary Care Provider Encounter Details Date Type Department Care Team (Late st Contact Info) Description 07/19/2024 Procedure Pass [facility] Endoscopy Admitting Dept Virtual Department [address] [place] [address] Social History Tobacco Use Types Packs/Day Years [...] on filedocumented in this encounter Care Teams Creel Hand Relationship Specialty Start Date End Date Felix Randle MD [address] [place] [address] PCP - General Internal Medicine 08/20/23 documented as of this encounter Additional Source Comments The information contained in this document represents components of the legal health record. It is not the complete legal health record.[facility]
--- OUTSIDE RECORDS SUMMARY | 2025-08-02 19:00 | XMS_ITS | Clinical Summary ---
Author Organization Unknown Care Team Providers Care Design Project Manager Name Role Phone MONIQUE WILSON, CAMERON Unavailable Unavailable DELIA JUDDN, NATALIO Unavailable Unavailable MARÍA [employer] SALES ENGINEER, HUSSEIN Unavailable Unavailable HUNTER PT, HORTENCIA Unavailable Unavailable SAMARIA RN, ZACH Unavailable Unavailable Payers Payer Name Policy Type Policy Number Effective Date Expira tion Date MEDICARE - [place] [id number] Problems Condition Name Condition Details Condition Category [...] 09-07 00:00: 00 ATHSCL HEART DISEASE OF [place] CORONARY ARTERY W/O ANG PCTRS Active 09-07 [...] 03-31 00:00: 00 05-29 23:59 :00 No [id number] unit 4 TIMES DAILY [id number] unit 4 TIMES DAILY (route: oral) Med Classific ation: Mouth-Thr oat-Denta l - Preparati ons clotrimazol e 10 mg addison 03-21 00:00: 00 05-18 23:59 :00 No [id number] Per instruc tions 5 TIMES A DAY Per instructio ns 5 TIMES A DAY (route: mucous membrane) Med Classific ation: Mouth-Thr oat-Denta l - Preparati ons Vyndamax 61 mg capsule 03-20 00:00: 00 Yes [id number] 1 capsule EVERY AM 1 capsule EVERY AM (route: oral) Med Classific ation: Endocrine acetaminoph en 500 mg capsule 03-28 00:00: 00 Yes [id number] 2 capsule EVERY 6 HOURS 2 capsule EVERY 6 HOURS (route: oral) Med Classific ation: Analgesic , Anti-infl ammatory or Antipyret ic ascorbic acid (vitamin C) 500 mg tablet 03-28 00:00: 00 Yes [id number] 1 tablet BEDTIME 1 tablet BEDTIME (route: oral) Med Classific ation: Electroly te Balance-N utritiona l Products baclofen 10 mg tablet 03-28 00:00: 00 Yes [id number] 1 tablet BEDTIME 1 tablet BEDTIME (route: oral) Med Classific ation: Locomotor System calcium carbonate 750 mg-simethic one 80 mg chewable tablet 03-28 00:00: 00 Yes [id number] 1 tablet BEDTIME 1 tablet BEDTIME (route: oral) Med Classific ation: Gastroint estinal Therapy Agents docusate sodium 100 mg capsule 03-28 00:00: 00 Yes [id number] 100 mg 2 TIMES DAILY 100 mg 2 TIMES DAILY (route: oral) Med Classific ation: Gastroint estinal Therapy Agents omeprazole 20 mg capsule,del ayed release 03-28 00:00: 00 Yes [id number] 20 mg DAILY 20 mg DAILY (route: oral) Med Classific ation: Gastroint estinal Therapy Agents pantoprazol e 40 mg tablet,bridget yed release 03-28 00:00: 00 05-18 23:59 :00 No [id number] 1 tablet DAILY 1 tablet DAILY (route: oral) Med Classific ation: Gastroint estinal Therapy Agents simvastatin 10 mg tablet 03-28 00:00: 00 Yes [id number] 1 tablet BEDTIME 1 tablet BEDTIME (route: oral) Med Classific ation: Cardiovas cular Therapy Agents spironolact one 50 mg tablet 03-28 00:00: 00 Yes [id number] 2 tablet DAILY 2 tablet DAILY (route: oral) Med Classific ation: Cardiovas cular Therapy Agents terazosin 10 mg capsule 03-28 00:00: 00 Yes [id number] 1 capsule BEDTIME 1 capsule BEDTIME (route: oral) Med Classific ation: Cardiovas cular Therapy Agents thiamine HCl (vitamin B1) 100 mg capsule 03-28 00:00: 00 Yes [id number] 1 capsule BEDTIME 1 capsule BEDTIME (route: oral) Med Classific ation: Electroly te Balance-N utritiona l Products tolvaptan 30 mg tablet 03-28 00:00: 00 Yes [id number] 1 tablet DAILY 1 tablet DAILY (route: oral) Med Classific ation: Cardiovas cular Therapy Agents oxycodone 5 mg tablet 04-27 00:00: 00 05-18 23:59 :00 No [id number] 1 tablet EVERY 6 HOURS 1 tablet EVERY 6 HOURS (route: oral) Med Classific ation: Analgesic , Anti-infl ammatory or Antipyret ic oxycodone 5 mg tablet 8- 00:00: 00 Yes [id number] 1 tablet EVERY 4-6 HOURS NEEDED 1 tablet EVERY 4-6 HOURS NEEDED (route: oral) Med Classific ation: Analgesic , Anti-infl ammatory or Antipyret ic Jardiance 10 mg tablet 4-01 00:00: 00 Yes [id number] 1 tablet DAILY 1 tablet DAILY (route: oral) Med Classific ation: Endocrine Miralax 17 gram/dose oral powder 2-03 00:00: 00 Yes [id number] 17 gram 2 TIMES DAILY 17 gram 2 TIMES DAILY (route: oral) Med Classific ation: Gastroint estinal Therapy Agents torsemide 20 mg tablet 7-02 00:00: 00 Yes [id number] 1 tablet DAILY 1 tablet DAILY (route: oral) Med Classific ation: Cardiovas cular Therapy Agents tramadol 50 mg tablet - 00:00: 00 Yes [id number] 1 tablet EVERY 6 HOURS 1 tablet [...] MAINTAIN SITUATIONAL AWARENESS AND WILL NOTIFY CLINICAL BUSINESS ADMINISTRATOR AND PHYSICIAN/PROVIDER WITH ANY CHANGE IN CONDITION. [code = SKILLED NURSE TO PERFORM ENVIRONMENTAL SAFETY RISK ASSESSMENT AND FALL RISK ASSESSMENT AND PROVIDE INSTRUCTION TO IMPLEMENT ENVIRONMENTAL SAFETY AND FALL PREVENTION STRATEGIES THROUGHOUT THE CERTIFICATION PERIOD. SKILLED NURSE WILL MAINTAIN SITUATIONAL AWARENESS AND WILL NOTIFY CLINICAL BUSINESS ADMINISTRATOR AND PHYSICIAN/PROVIDER WITH ANY CHANGE IN CONDITION.] [...] TINETTI SCORE LESS THAN 19/30, 30 SECOND [id number] SCORE LESS THAN 6, AND DEMONSTRATES IMPAIRED ABILITY TO AMBULATE HOUSEHOLD DISTANCES EVIDENCED BY TUG SCORE GREATER THAN 30 SECONDS, HEP ESTABLISHED WITH PATIENT TO INCLUDE ABDOMINAL BRACING PERFORMED IN SUPINE, UTILIZING LOG ROLLING TECHNIQUES LEFT AND RIGHT SIDES WITH ABDOMINAL BRACING WITH EMPHASIS ON SPINE PRECAUTIONS, AND PARTIAL [id number] TRANSFER TRAINING PERFORMED WITH EMPHASIS ON HIP HINGING/MINIMIZING BENDING/LIFTING/TWISTING FOR MAINTAINING COMFORT, PATIENT HAS NO FORMAL SPINE PRECAUTIONS HOWEVER WILL BENEFIT FROM EDUCATION ON SPINE PRECAUTIONS FOR PAIN MANAGEMENT. PATIENT ABLE TO IMPROVE PAIN LEVELS FROM 9/10 DECREASED TO 6/10 BY END OF VISIT. PATIENT FRUSTRATED AND REPORTING THAT HE HAS HAD PAIN CONTROL ISSUES, REPORTS THAT FINISHED CARPET INSPECTOR AND PCP OFFICE OR BOTH UNWILLING TO [...] TINETTI SCORE LESS THAN 19/30, 30 SECOND [id number] SCORE LESS THAN 6, AND DEMONSTRATES IMPAIRED ABILITY TO AMBULATE HOUSEHOLD DISTANCES EVIDENCED BY TUG SCORE GREATER THAN 30 SECONDS, HEP ESTABLISHED WITH PATIENT TO INCLUDE ABDOMINAL BRACING PERFORMED IN SUPINE, UTILIZING LOG ROLLING TECHNIQUES LEFT AND RIGHT SIDES WITH ABDOMINAL BRACING WITH EMPHASIS ON SPINE PRECAUTIONS, AND PARTIAL [id number] TRANSFER TRAINING PERFORMED WITH EMPHASIS ON HIP HINGING/MINIMIZING BENDING/LIFTING/TWISTING FOR MAINTAINING COMFORT, PATIENT HAS NO FORMAL SPINE PRECAUTIONS HOWEVER WILL BENEFIT FROM EDUCATION ON SPINE PRECAUTIONS FOR PAIN MANAGEMENT. PATIENT ABLE TO IMPROVE PAIN LEVELS FROM 9/10 DECREASED TO 6/10 BY END OF VISIT. PATIENT FRUSTRATED AND REPORTING THAT HE HAS HAD PAIN CONTROL ISSUES, REPORTS THAT FINISHED CARPET INSPECTOR AND PCP OFFICE OR BOTH UNWILLING TO [...] End Date/Time Encounter Type Admission Type Attending [facility] Care Department Encounter ID Discharge Date Discharge Status Discharge Condition Discharge Reason Percent Goals Met 2025-06-05 00:00:00 2025-08-03 00:00:00 Outpatient RECERTIFIC HORTENCIA MARISCAL [facility] [id number]
== END 2025-07-13 13:41 | disposition home or self-care (01) ==
LOC: HO.US 13:40
PROVIDERS: PCP Internal Medicine; Visit Provider Urology
DX: N45.3 Epididymo-orchitis (principal); N43.3 Hydrocele, unspecified
CPT/HCPCS: 76870

== ENCOUNTER → 2025-07-13 13:43 | Outpatient (BNV) | payer MEDICARE, SELFPAY | PROVIDERS: PCP Internal Medicine; Visit Provider Radiology Diagnostic Radiology | DX: N43.3 Hydrocele, unspecified (principal); Z90.79 Acquired absence of other genital organ(s) | CPT/HCPCS: 76870 ==

== ENCOUNTER 2025-07-21 09:33 | Outpatient (AMB) | payer MEDICARE, SELFPAY ==
--- OUTSIDE RECORDS SUMMARY | 2025-07-20 09:47 | XMS_ITS | Encounter Summary ---
Author Organization [facility] Address [address] [place] [address] Care Team Providers Care Journeyman Powerhouse Operator Name Role Phone Felix Randle MD Primary Care Provider [phone] Reason for Referral * Imaging (Routine) - Authorized Specialty Diagnoses / Procedures Referred By Eleazar hart Referred To Contact Radiology Diagnoses History of kyphoplasty Procedures NM Bone/Joint Scan Spect CT Emeka Salgado MD [address] [place] [address] Phone: tel: fax: [address] [address] Phone: tel: Referral ID Status Reason Start Date Expiration Date V isits Requested Visits Authorized [id number] Authorized 07/19/2025 07/19/2026 2 2 Reason for Visit * Imaging (Routine) - Authorized Specialty Diagnoses / Procedures Referred By Eleazar hart Referred To Contact Radiology Diagnoses History of kyphoplasty Procedures NM Bone/Joint Scan Spect CT Emeka Salgado MD [address] [place] [address] Phone: tel: fax: [address] [address] Phone: tel: Referral ID Status Reason Start Date Expiration Date V isits Requested Visits Authorized [id number] Authorized 07/19/2025 07/19/2026 2 2 Encounter Details Date Type Department Care Team (Latest Contact Info) Description 07/20/2025 9:47 AM EST Hospital Encounter [facility] Nuclear Medicine [address] [place] [address] History of kyphoplasty Social History Tobacco Use Types Packs/Day Years Used Date Smoking Tobacco: Never Assessed Sex and Gender Information Value Date Recorded Sex Assigned at Not on file Legal Sex Male 9:47 AM EST Gender Identity Not on file Sexual Orientation Not on file documented as of this encounter Plan of Treatment Pending Results Name Type Priority Associated Diagnoses Date /Time NM Bone/Joint Scan Spect CT Imaging Routine History of kyphoplasty 07/20/2025 3:04 PM EST Scheduled Orders Name Type Priority Associated Diagnoses Orde r Schedule NM Bone/Joint Scan Spect CT Imaging Routine History of kyphoplasty Once for 1 Occurrences starting 07/20/2025 until 07/20/2025 documented as of this encounter Visit Diagnoses Diagnosis History of kyphoplasty documented in this encounter Administered Medications Inactive Administered Medications - up to 3 most recent administrations Medication Order MAR Action Action Date Dose Rate Site TC-99M medronate radio-isotope injection 25.2 millicurie 25.2 millicurie, intravenous, Once in imaging, Starting on Neris 07/20/25 at 1002, For 1 dose Given 07/20/2025 10:02 AM EST 25.2 millicuries Right Antecubital documented in this encounter Orders Medications Ordered That Danial ht Not Have Been Administered Count Last Ordered Date First Ordered Date TC-99M medronate radio-isoto pe injection 25.2 millicurie 1 07/20/2025 documented in this encounter Care Teams Journeyman Powerhouse Operator Relationship Specialty Start Date End Date Felix Randle MD [address] [place], [place] PCP - General Internal Medicine 06/24/12 documented as of this encounter
--- OUTSIDE RECORDS SUMMARY | 2025-07-20 13:06 | XMS_ITS | Encounter Summary ---
Author Organization [facility] Address [address] [place] [address] Care Team Providers Care Instructional Design Technologist Name Role Phone Felix Randle MD Primary Care Provider [phone] Reason for Visit * Imaging (Routine) - Authorized Specialty Diagnoses / Procedures Referred By Eleazar t Referred To Contact Radiology Diagnoses History of kyphoplasty Procedures NM Bone/Joint Scan Spect CT Emeka Salgado MD [address] [place] [address] Phone: tel: fax: [address] [address] Phone: tel: Referral ID Status Reason Start Date Expiration Date V isits Requested Visits Authorized [id number] Authorized 07/19/2025 07/19/2026 2 2 Encounter Details Date Type Department Care Team (Late st Contact Info) Description 07/20/2025 1:06 PM EST Hospital Encounter [facility] Nuclear Medicine [address] [place] [address] Arrived Social History Tobacco Use Types Packs/Day Years [...] History of kyphoplasty 07/20/2025 3:04 PM EST documented as of this encounter Visit Diagnoses Not on filedocumented in this encounter Care Teams Instructional Design Technologist Relationship Specialty Start Date End Date Felix Randle MD [address] [facility] [address] [place], [place] PCP - General Internal Medicine 06/24/12 documented as of this encounter
--- NOTE | 2025-07-21 09:58 | A.OFFVIS_ITS ---
Intake Visit Reasons: 4w/Scrotal US Intake Note: Patient Is Present for Scrotal US Results Urology Med: Terazosin Antibiotic Allergy:None Blood Thinner: None Allergies No Known Allergies (No Known Allergies*) Allergy (Verified 07/12/25 10:57) HPI Comments Details: Mr. Sanket Little is a very pleasant male. He is a patient of Dr. Randle. He is here for further evaluation of the following urologic conditions. - lower urinary tract symptoms - epididymal orchitis Follow-up after 2 weeks of antibiotics Scrotal ultrasound resolving orchitis Sanket tells me the swelling has gone down significantly and he responding well to antibiotics Scrotal ultrasound - Possible left epididymal orchitis. Moderate-sized complex chronic-appearing left hydrocele. Reports right orchiectomy in March with abdominal surgery - had incarcerated right inguinal hernia with loss of viability to testicle per General surgery note Current primary issue is cardiac related. Has had fluid status management issue s. Has been on and off high-dose torsimide and admitted to the hospital. Discussed fluid balance. Aim for 48 oz per day. 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 Urination doing well with terazosin 10mg ? Laboratory investigations include?a total PSA evaluation ?05/25 1.0 on 5AR, 05/26 2.6 off 5AR, 05/27 1.9, 05/28 2.4, 05/29 1.9, 05/30 1.2, 06/30 0.8 ? Individualized Prostate Cancer Risk Calculator?< 5% high risk.? His prior IPSS was?mild.? Therapeutic plan will be?continued surveillance. 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 Mother History of hypertension Son No problems noted. Son No problems noted. Daughter No problems noted. 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 Patient Tobacco Use Status: Former Tobacco user Advance Directives Date on File: 02/17/25 service: No Review of Systems Const Denies chills and Denies fever(s) Card Reports no additional complaints and Denies syncope Resp Denies cough GI Denies abdominal pain and Denies heartburn Reports as per HPI and Denies change in libido Neuro Denies syncope Psych Denies change in libido Endo Denies change in libido Physical Exam Const General: cooperative, healthy appearing, comfortable and no acute distress Orientation/consciousness: patient oriented x3 HEENT Face and sinus: Yes normal facial exam Mouth: moist mucous membranes Neck Neck: Yes normal visual inspection, Yes full ROM and Yes trachea midline Chest Chest palpation & inspection: normal inspection of the chest Resp Effort & Inspection: normal respiratory effort, able to speak in complete sentences and no respiratory distress GI Inspection: Yes normal to inspection Back/Spine/Pelvis Cervical Spine: normal cervical lordosis Thoracic/Lumbar Spine: thoracic and lumbar spine normal to inspection Skin General skin exam: no rashes or lesions noted Neuro General: patient oriented x3, gait normal, tone normal and moves all extremities Extrem General: Yes normal to inspection and Yes capillary refill normal Assessment & Plan Assessment & Plan (1) Epididymo-orchitis: Code(s): N45.3 - Epididymo-orchitis Category: Medical Plan Six-month follow-up Patient Instructions: This note is constructed using voice recognition software. While every effort has been made to ensure accuracy image archivist errors may have been included. Imaging studies, laboratory and physical exam results were discussed and reviewed in detail. No major barriers to patient understanding were identified. An opportunity to ask questions regarding the treatment plan was provided. All questions were answered. The patient expressed understanding and agreement with the above treatment plan. The patient is aware they should contact our office by phone for worsening of their current condition or the appearance of new urologic symptoms. Compliance is encouraged with any medications and followup testing that is ordered. It is a privilege to participate in the urologic care of your patient. If you have any questions or concerns regarding treatment for the above conditions, or other urologic issues, please do not hesitate to contact me. The office telephone contact is [phone]. Sincerely, Dr Lawrence Roberts MD, [facility]rology Compassionate Specialist Care for the Genitourinary System Coding Level of Care Code Est Pt Level 3 (48125) Diagnoses Epididymo-orchitis N45.3
--- OUTSIDE RECORDS SUMMARY | 2025-07-21 10:34 | XMS_ITS | Continuity of Care Document ---
Author Organization [place] - [facility], 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 2013 Tobacco abuse; Note: Date Diagnosed : 08/07/2014 1:24 PM (305.1) Not Available [facility] 4 02:50:45 Difficult y speaking Active 2014 Hoarsenes s; Note: Date Diagnosed : 01/12/2015 5:28 PM (784.49) Not Available [facility] 4 02:50:47 Deviated nasal septum 027183972 Active 2014 Nasal septal deviation ; Note: Date Diagnosed : 08/07/2014 1:24 PM (470) ; Start Date : 4 Deviate d nasal septum; Note: Date Diagnosed : 03/02/2015 1:09 PM (J34.2) [mapped from ICD9 code: 470] Not Available [facility] 4 02:50:47 Finding of resonance of voice 543374449 Active 2014 Other voice and resonance disorders ; Note: Date Diagnosed : 03/02/2015 1:09 PM (R49.8) [mapped from ICD9 code: 784.49] Not Available [facility] 4 02:50:41 Tobacco dependenc e caused by cigarette s 81175687341 712409 Active 2014 Nicotine dependenc e, cigarette s, uncomplic ated; Note: Date Diagnosed : 03/02/2015 1:09 PM (F17.210) [mapped from ICD9 code: 305.1] Not Available [facility] 4 02:50:43 Edema of larynx 18429056 Active 2014 Laryngeal edema; Note: Date Diagnosed : 08/07/2014 1:24 PM (478.6) ; Start Date : 4 Edema of larynx; Note: Date Diagnosed : 03/02/2015 1:09 PM (J38.4) [mapped from ICD9 code: 478.6] Not Available [facility] 4 02:50:46 Sensorine ural hearing loss of bilateral ears 919803660 Active 2014 Sensorine ural hearing loss, bilateral ; Note: Date Diagnosed : 5 2:42 PM (H90.3) Not Available [facility] 4 02:50:42 Neoplasm of uncertain behavior of larynx 54058787 Active 2015 Neoplasm of uncertain behavior of larynx; Note: Date Diagnosed : 03/20/2016 9:08 AM (D38.0) Not Available [facility] 4 02:50:43 Dysphonia 56066909 Active 2016 Hoarsenes s; Note: Date Diagnosed : 09/24/2016 9:16 AM (R49.0) Not Available [facility] 4 02:50:47 Disorder of vocal cord 33362938 Active 2016 Leukoplak ia of vocal cords; Note: Date Diagnosed : 10/16/2016 11:47 AM (J38.3) Not Available [facility] 4 02:50:45 Lesion of oral mucosa 37717903345 58906 Active 2016 Other lesions of oral mucosa; Note: Date Diagnosed : 06/01/2017 2:12 PM (K13.79) Not Available [facility] 4 02:50:48 Malignant neoplasm of larynx 969034971 Active 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, unspecifi ed; Note: Date Diagnosed : 8 2:33 PM (C32.9) Not Available [facility] 4 02:50:44 Bleeding from nose 192399033 Active 2018 Epistaxis ; Note: Date Diagnosed : 10/20/2018 9:07 AM (R04.0) Not Available [facility] 4 02:50:43 Tracheost chuckie hemorrhag e 97212514 Active 2018 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; Note: Date Diagnosed : 11/23/2018 2:21 PM (J95.01) Not Available [facility] 4 02:50:42 Impacted cerumen of bilateral ears 75918846028 59078 Active 2018 Impacted cerumen, bilateral ; Note: Date Diagnosed : 02/24/2019 3:34 PM (H61.23) Impacte d cerumen, bilateral ; Note: Date Diagnosed : 12/05/2016 3:29 PM (H61.23) ; Start Date : 7 Not Available [facility] 4 02:50:46 Follow-up visit Active 2018 Encounter for follow-up examinati on after completed treatment for malignant neoplasm; Note: Date Diagnosed : 9 4:14 PM (Z08) Encount er for follow-up examinati on after completed treatment for condition s other than malignant neoplasm; Note: Date Diagnosed : 10/12/2018 2:03 PM (Z09) ; Start Date : 9 Not Available [facility] 4 02:50:48 History of malignant neoplasm of larynx 927797673 Active 2018 Primary tumor location: right supraglot tic Tumor staging: T1aN0 SCCA Treatment : Laryngect chuckie and RT Date of treatment completio n: Surgery 09/29/18, RT 12/2003 Oncology team: Beau Samaniego MD [address] [place] [address], [facility] RAHAT zaragoza, [address] [facility] - [facility] 5 09:20:31 Hemoptysi s 38177169 Active 2021 Hemoptysi s; Note: Date Diagnosed : 12/12/2021 9:19 AM (R04.2) Not Available [facility] 4 02:50:44 Tinnitus of left ear 90933806602 06 Active 2023 Tinnitus, left ear; Note: Date Diagnosed : 11/17/2023 2:35 PM (H93.12) Not Available [facility] 4 02:50:44 Dysphagia 93681782 Active 2024 Tanisha pollack [place] - [facility] 5 17:35:00 Problem Notes None recorded. Procedures Surgical History Date Name Laterality Status Provider Name and Address Organization Details Recorded Time 05/19/2025 Nasopharyng oscopy_DP completed BENIGNO LO MD [address] [facility],[place] [address], [place], [address], [place] - [facility] 05/18/2025 21:29:00 11/16/2024 Nasopharyng oscopy_DP completed BENIGNO LO MD [address] [facility],[place] [address], [place], [address], [facility] - [facility] 11/16/2024 15:46:18 09/13/2024 Comp Audio with Tymps - 58934 & 10319 completed DAYAN ALCALA [address] [facility],[place] [address], [place], [address], [place] - [facility] 09/13/2024 15:32:20 Imaging Results None recorded. Procedure [...] mg tablet 01/05 completed Medicati on ID: [id number] Du ration Value: 30 Brand Name: atenolol Send Method: E-Prescr ibed Sub s Allowed: subs OK Medic ationGen ericName : atenolol Not Available Not Available Not Available acetazola mide 250 mg tablet TAKE 2 TABLETS BY MOUTH EVERY THURSDAY AND THURSDAY active Not Available Not Available No t Available torsemide 10 mg tablet 01/05 completed Medicati on ID: [id number] D uration Value: 30 Brand Name: torsemid e Send Method: E-Prescr ibed Sub s Allowed: subs OK Medic ationGen ericName : torsemid e Not Available Not Available Not Available clopidogr el 75 mg tablet TAKE ONE TABLET BY MOUTH EVERY DAY active Not Available Not Available No t Available digoxin 250 mcg (0.25 mg) tablet 09/13 completed Medicati on ID: [id number] B rand Name: digoxin Send Method: E-Prescr [...] mg capsule 01/05 completed Medicati on ID: [id number] Du ration Value: 30 Brand Name: tamsulos [...] iron) tablet 11/16 completed Medicati on ID: [id number] D uration Value: 60 Brand Name: ferrous [...] 24 hr 09/13 completed Medicati on ID: [id number] B rand Name: metoprol ol succinat e [...] mg tablet 09/13 completed Medicati on ID: [id number] B rand Name: lisinopr il Send Method: E-Prescr ibed Sub s Allowed: subs OK Medic ationGen ericName : lisinopr il Not Available Not Available Not Available terazosin 10 mg capsule TAKE ONE CAPSULE BY MOUTH EVERY DAY active Not Available Not Available No t Available finasteri de 5 mg tablet 01/05 completed Medicati on ID: [id number] D uration Value: 90 Brand Name: finaster [...] mg tablet 09/24 completed Medicati on ID: [id number] Du ration Value: 20 Reason: () Brand [...] mg tablet 01/05 [place] Medicati on ID: [id number] Du ration Value: 5 Brand Name: oxycodon [...] Details Last Updated DateTime 05/19/2025 185.[address], [address], [place] - [facility] 05/19/2025 14:58:11 Date Recorded Body mass index (BMI) Body weight Provider Name and Address Organization Details Last Updated DateTime 05/19/2025 17.7 kg/m2 97397.38 g TORSTEN JUDD [place] - [facility] 05/19/2025 15:57:01 Social History None recorded. Functional Status None recorded. Mental Status None recorded. Family History Nothing Reported. Medical History No medical history recorded. Past Encounters Encounter ID Performer Location Encounter Start Date Encounter Closed Date Diagnosis/Indication Diagnosis SNOMED-CT Code Diagnosis ICD10 Code Diagnosis IMO Codes Diagnosis Note [id number] BENIGNO LO MD [facility] [address] [place] [address] 05/19/2025 14:48:43 05/19/2025 16:02:52 Malignant neoplasm of larynx 788623389 C32.9 nasopharyn x exam was benign Dysphagia 80184020 R13.1 0 Health Concerns Section Related Observation LastModified by Organization Detai ls LastModified Time None Recorded Concern Status LastModified by Organization Details LastModified Time None Recorded Payers Encounter Date Sequence Insurance Name Policy Number Policy López Covered Member ID López Member ID Guarantor Name 05/19/2025 1 [place] [employer] Sanket Little [id number] Sanket Little 05/19/2025 2 [employer] (MEDICARE SUPPLEMENT) Sanket Little [id number] Sanket Little Notes Date Note Type Note Provider Name and Address Organization Details Recorded Time 05/19/2025 text/html Primary tumor location: right supraglottic Tumor staging: T1aN0 SCCA Treatment: Laryngectomy and RT Date of treatment completion: Surgery 09/29/18, RT 12/2003 Oncology team: Beau Samaniego after watchman was converted from coumadin to plavix and ASA. was admitted to [facility] for hemoptysis. identified a pulmonary bleed the [...] to his health challenges. BENIGNO LO MD [address] [place] [address], [address], [facility] - [facility] 05/19/2025 16:01:46
--- OUTSIDE RECORDS SUMMARY | 2025-07-21 10:34 | XMS_ITS | Encounter Summary ---
Author Organization Address [address] [place] [address] Care Team Providers Care Soil Fertility Specialist Name Role Phone Felix Randle MD Primary Care Provider [phone] Encounter Details Date Type Department Care Team (Late st Contact Info) Description 02/24/2025 Lab Requisition [facility] - Main Lab [address] [facility] [employer] [place] [address] Lala Low MD [address] [place] [address] Encounter for other general examination Social History [...] LAB CHEMISTRY METHOD 02/24/2025 10:28 AM EDT [facility] Blood Venous blood specimen / Unknown Venipuncture / Unknown 02/24/2025 5:30 AM EDT 02/24/2025 9:41 AM EDT us Lala Low MD LAB BLOOD ORDERABLES Final Resu lt [facility] [address] [place] [address], [place] [phone] * (ABNORMAL) Basic metabolic panel (02/24/2025 5:30 AM EDT) Sodium 130(L) 133 - 145 mmol/L LAB CHEMISTRY METHOD 02/24/2025 10:28 AM [facility] Potassium 3.9 3.5 - 5.5 mmol/L LAB CHEMISTRY METHOD 02/24/2025 10:28 AM [facility] Chloride 93(L) 96 - 110 mmol/L LAB CHEMISTRY METHOD 02/24/2025 10:28 AM [facility] CO2 27 21 - 32 mmol/L LAB CHEMISTRY METHOD 02/24/2025 10:28 AM [facility] Anion Gap 10 3 - 11 LAB CHEMISTRY METHOD 02/24/2025 10:28 AM [facility] Glucose 94 70 - 100 mg/dL LAB CHEMISTRY METHOD 02/24/2025 10:28 AM [facility] BUN 39(H) 5 - 25 mg/dL LAB CHEMISTRY METHOD 02/24/2025 10:28 AM [facility] Creatinine 1.12 0.70 - 1.30 mg/dL LAB CHEMISTRY METHOD 02/24/2025 10:28 AM [facility] eGFR 68 >=60 mL/min/1. 73m2 LAB CHEMISTRY METHOD 02/24/2025 10:28 AM [facility] Comment:Calculation based on the Chronic Kidney Disease Epidemiology Collaboration (CKD-EPI) equation refit without adjustment for race. BUN/Creatinine Ratio 34.8 LAB CHEMISTRY METHOD 02/24/2025 10:28 AM EDT [facility] Calcium 8.4(L) 8.5 - 10.5 mg/dL LAB CHEMISTRY METHOD 02/24/2025 10:28 AM EDT [facility] Blood Venous blood specimen / Unknown Venipuncture / Unknown 02/24/2025 5:30 AM EDT 02/24/2025 9:41 AM EDT us Lala Low MD LAB BLOOD ORDERABLES Final Resu lt [facility] [address] [place] [address], documented in this encounter Visit Diagnoses Diagnosis Encounter for other general examination documented in this encounter Care Teams Soil Fertility Specialist Relationship Specialty Start Date End Date Felix Randle MD [address] [facility] [address] [place], [place] PCP - General Internal Medicine 06/24/12 documented as of this encounter
--- OUTSIDE RECORDS SUMMARY | 2025-07-21 10:34 | XMS_ITS | Encounter Summary ---
Author Organization [facility] Address [address] [place] [address] Care Team Providers Care Optical Worker Name Role Phone Felix Randle MD Primary Care Provider +1 [phone] Encounter Details Date Type Department Care Team (Late st Contact Info) Description 02/22/2025 Lab Requisition [facility] Lab [address] [facility] [address] [address] Lala Low MD [address] [place] [address] Encounter for other general examination Social History [...] LAB CHEMISTRY METHOD 02/22/2025 10:50 AM EDT [facility] Potassium 4.5 3.5 - 5.5 mmol/L LAB CHEMISTRY METHOD 02/22/2025 10:50 AM EDT [facility] Chloride 89(L) 96 - 110 mmol/L LAB CHEMISTRY METHOD 02/22/2025 10:50 AM T [facility] CO2 30 21 - 32 mmol/L LAB CHEMISTRY METHOD 02/22/2025 10:[address] [facility] Anion Gap 11 3 - 11 LAB CHEMISTRY METHOD 02/22/2025 10:[address] [facility] Glucose 76 70 - 100 mg/dL LAB CHEMISTRY METHOD 02/22/2025 10:[address] [facility] BUN 38(H) 5 - 25 mg/dL LAB CHEMISTRY METHOD 02/22/2025 10:[address] [facility] Creatinine 1.14 0.70 - 1.30 mg/dL LAB CHEMISTRY METHOD 02/22/2025 10:[address] [facility] LAB eGFR 66 >=60 mL/min/1. 73m2 LAB CHEMISTRY METHOD 02/22/2025 10:[address] [facility] LAB Comment:Calculation based on the Chronic Kidney Disease Epidemiology Collaboration (CKD-EPI) equation refit without adjustment for race. BUN/Creatinine Ratio 33.3 LAB CHEMISTRY METHOD 02/22/2025 10:[address] [facility] Calcium 9.6 8.5 - 10.5 mg/dL LAB CHEMISTRY METHOD 02/22/2025 10:[address] [facility] Blood Venous blood specimen / Unknown Venipuncture / Unknown 02/22/2025 5:34 AM EDT 02/22/2025 9:43 AM EDT us Lala Low MD LAB BLOOD ORDERABLES Final Resu lt [facility] [address] [place] [address], documented in this encounter Visit Diagnoses Diagnosis Encounter for other general examination documented in this encounter Care Teams Optical Worker Relationship Specialty Start Date End Date Felix Randle MD [address] [place], [place] PCP - General Internal Medicine 06/24/12 documented as of this encounter
--- OUTSIDE RECORDS SUMMARY | 2025-07-21 10:34 | XMS_ITS | Clinical Summary ---
Author Organization [facility] Address [address] [place] [address] Care Team Providers Care Regulatory Attorney Name Role Phone Felix Randle MD Primary [...] Years Used Date Smoking Tobacco: Former Cigarettes 0 Q uit: 09/07/2018 Smokeless Tobacco: Never Tobacco [...] Screening 09/07/2024 Depression Screening and Follow-Up 09/07/2024 Fall Risk Screening 09/07/2024 Health Care Proxy Review 09/07/2024 Social Drivers of Health Michaela ual Screening 09/07/2024 COVID-19 Vaccine (7 - 2024-2 6 season) 2025 04/22/2023, 05/27/2022, 12/12/2021, Additional history exists Influenza Vaccine (#1) 2025 2, 06/10/2022, 06/07/2021, Additional history exists Pneumococcal Vaccine: 50+ Years Completed 9, 10/17/2018 Zoster Vaccines Completed 09/09/2022, 06/25/2022 Medical Devices Implanted Type Area Dot Etcher Apprentice Device Identifier Shelf Expiration Date Model / Serial / Lot Lens Intraocular Biconvex Aspheric Uv Blocking Hydrophobic Acrylic One Piece 3dip41bh [employer]ecnis - [id number] - [id number] Implanted:Qty: 1 on 05/29/2023 by Casey Zaman MD at [facility] [employer] 11/24/2026 Z00 / [id number] / Tecnis1 1 Piece Acrylic Aspheric Iol Implanted:Qty: 1 on 04/17/2023 by Casey Zaman MD at [facility] [employer] 12/29/2026 [id number] / [id number] / Insurance MEDICARE Advance Directives Healthcare Agents on File Name Relationship Healthcare Agent [facility] Communication James Meza Other Health Care Agent Care Teams Regulatory Attorney Relationship Specialty Start Date End Date Felix Randle MD [address] [facility] [address] [place] [address] PCP - General Internal Medicine 03/06/23
--- OUTSIDE RECORDS SUMMARY | 2025-07-21 10:34 | XMS_ITS | Encounter Summary ---
Author Organization [facility] Address [address] [place] [address] Care Team Providers Care Tourist Adviser Name Role Phone Felix Randle MD Primary Care Provider [phone] [phone] Encounter Details Date Type Department Care Team (Late st Contact Info) Description 02/27/2025 Lab Requisition [facility] - Main Lab [address] [place] [address] Lala Low MD [address] [place] [address] Encounter for other general examination Social History [...] AM EDT) WBC 7.6 4.8 - 10.8 K/[facility] LAB HEMETOLOGY METHOD 02/27/2025 11:48 AM EDT [facility] ([facility] RBC 4.10(L) 4.50 - 5.50 M/mcL LAB HEMETOLOGY METHOD 02/27/2025 11:48 AM [facility] LAB Hemoglobin 11.8(L) 13.5 - 17.5 g/dL LAB HEMETOLOGY METHOD 02/27/2025 11:48 AM [facility] LAB Hematocrit 37.6(L) 42.0 - 54.0 % LAB HEMETOLOGY METHOD 02/27/2025 11:48 AM [facility] LAB MCV 91.0 79.0 - 98.0 FL LAB HEMETOLOGY METHOD 02/27/2025 11:48 AM [facility] LAB MCH 28.6 27.0 - 32.0 pcg LAB HEMETOLOGY METHOD 02/27/2025 11:48 AM [facility] LAB MCHC 31.4(L) 32.0 - 37.0 g/dL LAB HEMETOLOGY METHOD 02/27/2025 11:48 AM [facility] LAB RDW 19.4(H) 11.0 - 15.0 % LAB HEMETOLOGY METHOD 02/27/2025 11:48 AM [facility] LAB Platelets 170 130 - 400 K/mcL LAB HEMETOLOGY METHOD 02/27/2025 11:48 AM [facility] LAB MPV 9.7 7.0 - 11.0 FL LAB HEMETOLOGY METHOD 02/27/2025 11:48 AM [facility] LAB NRBC 0.0 <1.0 % LAB HEMETOLOGY METHOD 02/27/2025 11:48 AM [facility] LAB NRBC Absolute 0.00 <0.10 K/mcL LAB HEMETOLOGY METHOD 02/27/2025 11:48 AM [facility] LAB Blood Venous blood specimen / Unknown Venipuncture / Unknown 02/27/2025 6:03 AM EDT 02/27/2025 10:57 AM EDT us Lala Low MD LAB BLOOD ORDERABLES Final Resu lt [facility] [address] [place] [address], * (ABNORMAL) Basic metabolic panel (02/27/2025 6:03 AM EDT) Sodium 129(L) 133 - 145 mmol/L LAB CHEMISTRY METHOD 02/27/2025 1:18 PM EDT [facility] Potassium 4.4 3.5 - 5.5 mmol/L LAB CHEMISTRY METHOD 02/27/2025 1:18 PM [facility] Chloride 89(L) 96 - 110 mmol/L LAB CHEMISTRY METHOD 02/27/2025 1:18 PM [facility] CO2 31 21 - 32 mmol/L LAB CHEMISTRY METHOD 02/27/2025 1:18 PM [facility] Anion Gap 9 3 - 11 LAB CHEMISTRY METHOD 02/27/2025 1:18 PM [facility] Glucose 103(H) 70 - 100 mg/dL LAB CHEMISTRY METHOD 02/27/2025 1:18 PM [facility] BUN 33(H) 5 - 25 mg/dL LAB CHEMISTRY METHOD 02/27/2025 1:18 PM [facility] Creatinine 1.12 0.70 - 1.30 mg/dL LAB CHEMISTRY METHOD 02/27/2025 1:18 PM [facility] eGFR 68 >=60 mL/min/1. 73m2 LAB CHEMISTRY METHOD 02/27/2025 1:18 PM [facility] Comment:Calculation based on the Chronic Kidney Disease Epidemiology Collaboration (CKD-EPI) equation refit without adjustment for race. BUN/Creatinine Ratio 29.5 LAB CHEMISTRY METHOD 02/27/2025 1:18 PM [facility] Calcium 9.1 8.5 - 10.5 mg/dL LAB CHEMISTRY METHOD 02/27/2025 1:18 PM EDT [facility] Blood Venous blood specimen / Unknown Venipuncture / Unknown 02/27/2025 6:03 AM EDT 02/27/2025 10:57 AM EDT us Lala Low MD LAB BLOOD ORDERABLES Final Resu lt [facility] [address] [place] [address], documented in this encounter Visit Diagnoses Diagnosis Encounter for other general examination documented in this encounter Care Teams Tourist Adviser Relationship Specialty Start Date End Date Felix Randle MD 100 [facility] [address] [place], [place] PCP - General Internal Medicine 06/24/12 documented as of this encounter
--- OUTSIDE RECORDS SUMMARY | 2025-07-21 10:34 | XMS_ITS | Encounter Summary ---
Author Organization [facility] Address [address] [place] [address] Phone Care Team Providers Care Cook Candy Name Role Phone Felix Randle MD Primary Care Provider Encounter Details Date Type Department Care Team (Late st Contact Info) Description 08/20/2023 Procedure Pass [facility], Ct Scan - [address] [address] Social History Tobacco Use Types Packs/Day Years [...] 08/20/2023 6:33 PM EST Jerica Delarosa * [place] Suicide Severity Rating Scale (Screener/Recent Self-Report) Question [...] on filedocumented in this encounter Care Teams Cook Candy Relationship Specialty Start Date End Date Felix Randle MD [address] [place] [address] PCP - General Internal Medicine 08/20/23 documented as of this encounter Additional Source Comments The information contained in this document represents components of the legal health record. It is not the complete legal health record.[facility]
--- OUTSIDE RECORDS SUMMARY | 2025-07-21 10:34 | XMS_ITS | Encounter Summary ---
Author Organization [facility] Address [address] [place] [address] Care Team Providers Care Music Video Producer Name Role Phone Felix Randle MD Primary Care Provider [phone] [phone] Encounter Details Date Type Department Care Team (Late st Contact Info) Description 02/23/[address] [facility] - Main Lab [address] [place] [address] Lala Low MD [address] [place] [address] Encounter for other general examination Social History [...] AM EDT) WBC 10.5 4.8 - 10.8 K/[facility] LAB HEMETOLOGY METHOD 02/23/2025 11:09 AM EDT [facility] ([facility] RBC 4.10(L) 4.50 - 5.50 M/mcL LAB HEMETOLOGY METHOD 02/23/2025 11:09 AM [facility] LAB Hemoglobin 11.8(L) 13.5 - 17.5 g/dL LAB HEMETOLOGY METHOD 02/23/2025 11:09 AM [facility] LAB Hematocrit 37.3(L) 42.0 - 54.0 % LAB HEMETOLOGY METHOD 02/23/2025 11:09 AM [facility] LAB MCV 91.9 79.0 - 98.0 FL LAB HEMETOLOGY METHOD 02/23/2025 11:09 AM [facility] LAB MCH 29.1 27.0 - 32.0 pcg LAB HEMETOLOGY METHOD 02/23/2025 11:09 AM [facility] LAB MCHC 31.6(L) 32.0 - 37.0 g/dL LAB HEMETOLOGY METHOD 02/23/2025 11:09 AM [facility] LAB RDW 19.9(H) 11.0 - 15.0 % LAB HEMETOLOGY METHOD 02/23/2025 11:09 AM [facility] LAB Platelets 194 130 - 400 K/mcL LAB HEMETOLOGY METHOD 02/23/2025 11:09 AM [facility] LAB MPV 9.4 7.0 - 11.0 FL LAB HEMETOLOGY METHOD 02/23/2025 11:09 AM [facility] LAB NRBC 0.0 <1.0 % LAB HEMETOLOGY METHOD 02/23/2025 11:09 AM [facility] LAB NRBC Absolute 0.00 <0.10 K/mcL LAB HEMETOLOGY METHOD 02/23/2025 11:09 AM [facility] LAB Blood Venous blood specimen / Unknown Venipuncture / Unknown 02/23/2025 6:40 AM EDT 02/23/2025 10:06 AM EDT us Lala Low MD LAB BLOOD ORDERABLES Final Resu lt [facility] LAB [address] [place] [address], * (ABNORMAL) Basic metabolic panel (02/23/2025 6:40 AM EDT) Sodium 125(L) 133 - 145 mmol/L LAB CHEMISTRY METHOD 02/23/2025 11:56 AM EDT [facility] Potassium 5.2 3.5 - 5.5 mmol/L LAB CHEMISTRY METHOD 02/23/2025 11:56 AM [facility] LAB Chloride 92(L) 96 - 110 mmol/L LAB CHEMISTRY METHOD 02/23/2025 11:56 AM [facility] LAB CO2 21 21 - 32 mmol/L LAB CHEMISTRY METHOD 02/23/2025 11:56 AM [facility] LAB Anion Gap 12(H) 3 - 11 LAB CHEMISTRY METHOD 02/23/2025 11:56 AM [facility] Glucose 69(L) 70 - 100 mg/dL LAB CHEMISTRY METHOD 02/23/2025 11:56 AM [facility] BUN 41(H) 5 - 25 mg/dL LAB CHEMISTRY METHOD 02/23/2025 11:56 AM [facility] LAB Creatinine 1.21 0.70 - 1.30 mg/dL LAB CHEMISTRY METHOD 02/23/2025 11:56 AM [facility] LAB eGFR 62 >=60 mL/min/1. 73m2 LAB CHEMISTRY METHOD 02/23/2025 11:56 AM [facility] LAB Comment:Calculation based on the Chronic Kidney Disease Epidemiology Collaboration (CKD-EPI) equation refit without adjustment for race. BUN/Creatinine Ratio 33.9 LAB CHEMISTRY METHOD 02/23/2025 11:56 AM EDT [facility] Calcium 10.0 8.5 - 10.5 mg/dL LAB CHEMISTRY METHOD 02/23/2025 11:56 AM EDT [facility] ([facility]) [facility] Blood Venous blood specimen / Unknown Venipuncture / Unknown 02/23/2025 6:40 AM EDT 02/23/2025 10:06 AM EDT us Lala Low MD LAB BLOOD ORDERABLES Final Resu lt [facility] ([facility]) [facility] [address] [place] [address], documented in this encounter Visit Diagnoses Diagnosis Encounter for other general examination documented in this encounter Care Teams Music Video Producer Relationship Specialty Start Date End Date Felix Randle MD [address] [facility] [address] [place], [place] PCP - General Internal Medicine 06/24/12 documented as of this encounter
--- OUTSIDE RECORDS SUMMARY | 2025-07-21 10:35 | XMS_ITS | Encounter Summary ---
Author Organization [facility] Address [address] [place] [address] Care Team Providers Care Polysomnography Tech Name Role Phone Felix Randle MD Primary Care Provider [phone] Encounter Details Date Type Department Care Team (Late st Contact Info) Description 02/20/2025 Lab Requisition [facility] - Main Lab 299 [facility] [place] [address] Lala Low MD [address] [place] [address] Encounter for other general examination Social History [...] LAB CHEMISTRY METHOD 02/20/2025 11:10 AM EDT [facility] Potassium 4.8 3.5 - 5.5 mmol/L LAB CHEMISTRY METHOD 02/20/2025 11:10 AM EDT [facility] Chloride 99 96 - 110 mmol/L LAB CHEMISTRY METHOD 02/20/2025 11:10 AM [facility] LAB CO2 24 21 - 32 mmol/L LAB CHEMISTRY METHOD 02/20/2025 11:10 AM [facility] LAB Anion Gap 8 3 - 11 LAB CHEMISTRY METHOD 02/20/2025 11:10 AM [facility] LAB Glucose 100 70 - 100 mg/dL LAB CHEMISTRY METHOD 02/20/2025 11:10 AM [facility] LAB BUN 23 5 - 25 mg/dL LAB CHEMISTRY METHOD 02/20/2025 11:10 AM [facility] LAB Creatinine 0.99 0.70 - 1.30 mg/dL LAB CHEMISTRY METHOD 02/20/2025 11:10 AM [facility] LAB eGFR 78 >=60 mL/min/1. 73m2 LAB CHEMISTRY METHOD 02/20/2025 11:10 AM [facility] LAB Comment:Calculation based on the Chronic Kidney Disease Epidemiology Collaboration (CKD-EPI) equation refit without adjustment for race. BUN/Creatinine Ratio 23.2 LAB CHEMISTRY METHOD 02/20/2025 11:10 AM [facility] LAB Calcium 9.1 8.5 - 10.5 mg/dL LAB CHEMISTRY METHOD 02/20/2025 11:10 AM [facility] LAB Blood Venous blood specimen / Unknown Venipuncture / Unknown 02/20/2025 5:56 AM EDT 02/20/2025 9:16 AM EDT us Lala Low MD LAB BLOOD ORDERABLES Final Resu lt [facility] [address] [place] [address], documented in this encounter Visit Diagnoses Diagnosis Encounter for other general examination documented in this encounter Care Teams Polysomnography Tech Relationship Specialty Start Date End Date Felix Randle MD [address] [facility] [address] [place], [place] PCP - General Internal Medicine 06/24/12 documented as of this encounter
--- OUTSIDE RECORDS SUMMARY | 2025-07-21 10:35 | XMS_ITS | Encounter Summary ---
Author Organization [facility] Address [address] [place] [address] Care Team Providers Care Delivery Professional Name Role Phone Felix Randle MD Primary Care Provider [phone] Encounter Details Date Type Department Care Team (Late st Contact Info) Description 02/18/2025 Lab Requisition [facility] - Main Lab 299 [facility] [employer] [place] [address] Lala Low MD [address] [place] [address] Encounter for other general examination Social History [...] CBC auto differential (02/18/2025 5:51 AM EDT) [facility] WBC 6.0 4.8 - 10.8 K/mcL LAB HEMETOLOGY METHOD 02/18/2025 12:19 PM [facility] RBC 3.80(L) 4.50 - 5.50 M/mcL LAB HEMETOLOGY METHOD 02/18/2025 12:19 PM [facility] Hemoglobin 11.0(L) 13.5 - 17.5 g/dL LAB HEMETOLOGY METHOD 02/18/2025 12:19 PM [facility] LAB Hematocrit 35.6(L) 42.0 - 54.0 % LAB HEMETOLOGY METHOD 02/18/2025 12:19 PM [facility] LAB MCV 93.7 79.0 - 98.0 FL LAB HEMETOLOGY METHOD 02/18/2025 12:19 PM [facility] LAB MCH 28.9 27.0 - 32.0 pcg LAB HEMETOLOGY METHOD 02/18/2025 12:19 PM [facility] LAB MCHC 30.9(L) 32.0 - 37.0 g/dL LAB HEMETOLOGY METHOD 02/18/2025 12:19 PM [facility] LAB RDW 20.4(H) 11.0 - 15.0 % LAB HEMETOLOGY METHOD 02/18/2025 12:19 PM [facility] LAB Platelets 162 130 - 400 K/mcL LAB HEMETOLOGY METHOD 02/18/2025 12:19 PM [facility] LAB MPV 10.5 7.0 - 11.0 FL LAB HEMETOLOGY METHOD 02/18/2025 12:19 PM [facility] NRBC 0.0 <1.0 % LAB HEMETOLOGY METHOD 02/18/2025 12:19 PM [facility] NRBC Absolute 0.00 <0.10 K/mcL LAB HEMETOLOGY METHOD 02/18/2025 12:19 PM [facility] Neutrophils Relative 70.4 % LAB HEMETOLOGY METHOD 02/18/2025 12:19 PM [facility] Lymphocytes Relative 11.0 % LAB HEMETOLOGY METHOD 02/18/2025 12:19 PM [facility] Monocytes Relative 10.8 % LAB HEMETOLOGY METHOD 02/18/2025 12:19 PM [facility] Eosinophils Relative 6.0 % LAB HEMETOLOGY METHOD 02/18/2025 12:19 PM [facility] Basophils Relative 0.5 % LAB HEMETOLOGY METHOD 02/18/2025 12:19 PM [facility] Immature Granulocytes Relative 1.3 % LAB HEMETOLOGY METHOD 02/18/2025 12:19 PM [facility] Neutrophils Absolute 4.22 1.50 - 7.00 K/mcL LAB HEMETOLOGY METHOD 02/18/2025 12:19 PM [facility] Lymphocytes Absolute 0.66(L) 1.00 - 5.00 K/mcL LAB HEMETOLOGY METHOD 02/18/2025 12:19 PM [facility] Monocytes Absolute 0.65 0.20 - 1.00 K/mcL LAB HEMETOLOGY METHOD 02/18/2025 12:19 PM [facility] Eosinophils Absolute 0.36 0.00 - 0.50 K/mcL LAB HEMETOLOGY METHOD 02/18/2025 12:19 PM [facility] Basophils Absolute 0.03 0.00 - 0.20 K/mcL LAB HEMETOLOGY METHOD 02/18/2025 12:19 PM [facility] Immature Granulocytes Absolute 0.08(H) 0.00 - 0.03 K/mcL LAB HEMETOLOGY METHOD 02/18/2025 12:19 PM EDT [facility] Blood Venous blood specimen / Unknown Venipuncture / Unknown 02/18/2025 5:51 AM EDT 02/18/2025 10:28 AM EDT us Lala Low MD LAB BLOOD ORDERABLES Final Resu lt Performing Organization Address City/[facility]/ZIP Co de Phone Number [facility] [address] [place] [address], [place] [phone] * (ABNORMAL) Prothrombin time with INR (02/18/2025 5:51 AM EDT) Protime 14.4(H) 10.6 - 13.9 sec LAB COAGULATION METHOD 02/18/2025 12:10 PM EDT [facility] INR 1.2 LAB COAGULATION METHOD 02/18/2025 12:10 PM EDT [facility] Blood Venous blood specimen / Unknown Venipuncture / Unknown 02/18/2025 5:51 AM EDT 02/18/2025 10:28 AM EDT us Lala Low MD LAB BLOOD ORDERABLES Final Resu lt Performing Organization Address City/[facility]/ZIP Co de Phone Number [facility] [address] [place] [address], [place] [phone] * Magnesium (02/18/2025 5:51 AM EDT) Magnesium 2.5 1.9 - 2.6 mg/dL LAB CHEMISTRY METHOD 02/18/2025 12:30 PM EDT [facility] Blood Venous blood specimen / Unknown Venipuncture / Unknown 02/18/2025 5:51 AM EDT 02/18/2025 10:28 AM EDT us Lala Low MD LAB BLOOD ORDERABLES Final Resu lt [facility] [address] [place] [address], * (ABNORMAL) Comprehensive metabolic panel (02/18/2025 5:51 AM EDT) Sodium 130(L) 133 - 145 mmol/L LAB CHEMISTRY METHOD 02/18/2025 12:36 PM [facility] Potassium 3.5 3.5 - 5.5 mmol/L LAB CHEMISTRY METHOD 02/18/2025 12:36 PM [facility] Chloride 95(L) 96 - 110 mmol/L LAB CHEMISTRY METHOD 02/18/2025 12:36 PM [facility] CO2 29 21 - 32 mmol/L LAB CHEMISTRY METHOD 02/18/2025 12:36 PM [facility] Anion Gap 6 3 - 11 LAB CHEMISTRY METHOD 02/18/2025 12:36 PM [facility] Glucose 93 70 - 100 mg/dL LAB CHEMISTRY METHOD 02/18/2025 12:36 PM [facility] BUN 21 5 - 25 mg/dL LAB CHEMISTRY METHOD 02/18/2025 12:36 PM [facility] Creatinine 1.23 0.70 - 1.30 mg/dL LAB CHEMISTRY METHOD 02/18/2025 12:36 PM [facility] eGFR 60 >=60 mL/min/1. 73m2 LAB CHEMISTRY METHOD 02/18/2025 12:36 PM [facility] Comment:Calculation based on the Chronic Kidney Disease Epidemiology Collaboration (CKD-EPI) equation refit without adjustment for race. BUN/Creatinine Ratio 17.1 LAB CHEMISTRY METHOD 02/18/2025 12:36 PM [facility] Calcium 9.1 8.5 - 10.5 mg/dL LAB CHEMISTRY METHOD 02/18/2025 12:36 PM EDT [facility] AST (SGOT) 21 10 - 42 unit/L LAB CHEMISTRY METHOD 02/18/2025 12:36 PM T [facility] ALT (SGPT) 17 10 - 60 unit/L LAB CHEMISTRY METHOD 02/18/2025 12:36 PM T [facility] Alkaline Phosphatase 179(H) 42 - 121 unit/L LAB CHEMISTRY METHOD 02/18/2025 12:36 PM EDT [facility] Total Protein 6.4 6.0 - 8.0 g/dL LAB CHEMISTRY METHOD 02/18/2025 12:36 PM T [facility] Albumin 3.6 3.2 - 5.0 g/dL LAB CHEMISTRY METHOD 02/18/2025 12:36 PM [facility] Total Bilirubin 1.0 0.0 - 1.4 mg/dL LAB CHEMISTRY METHOD 02/18/2025 12:36 PM T [facility] Blood Venous blood specimen / Unknown Venipuncture / Unknown 02/18/2025 5:51 AM EDT 02/18/2025 10:28 AM EDT us Lala Low MD LAB BLOOD ORDERABLES Final Resu lt [facility] [address] [place] [address], documented in this encounter Visit Diagnoses Diagnosis Encounter for other general examination documented in this encounter Care Teams Delivery Professional Relationship Specialty Start Date End Date Felix Randle MD [address] [place], [place] PCP - General Internal Medicine 06/24/12 documented as of this encounter
--- OUTSIDE RECORDS SUMMARY | 2025-07-21 10:35 | XMS_ITS | Encounter Summary ---
Author Organization [facility] Address [address] [place] [address] Care Team Providers Care Shellfish Bed Worker Name Role Phone Felix Randle MD Primary Care Provider [phone] Encounter Details Date Type Department Care Team (Late st Contact Info) Description 11/09/2024 Lab Requisition [facility] - Main Lab [address] [place] [address] Imer Taylor MD [address] [place] [address] [address] [facility] [phone] Hypo-osmolality and hyponatremia Social History [...] LAB CHEMISTRY METHOD 11/09/2024 12:30 PM EST [facility] Potassium 4.3 3.5 - 5.5 mmol/L LAB CHEMISTRY METHOD 11/09/2024 12:30 PM [facility] Chloride 99 96 - 110 mmol/L LAB CHEMISTRY METHOD 11/09/2024 12:30 PM [facility] CO2 23 21 - 32 mmol/L LAB CHEMISTRY METHOD 11/09/2024 12:30 PM [facility] Anion Gap 9 3 - 11 LAB CHEMISTRY METHOD 11/09/2024 12:30 PM [facility] Glucose 98 70 - 100 mg/dL LAB CHEMISTRY METHOD 11/09/2024 12:30 PM [facility] BUN 30(H) 5 - 25 mg/dL LAB CHEMISTRY METHOD 11/09/2024 12:30 PM [facility] Creatinine 1.16 0.70 - 1.30 mg/dL LAB CHEMISTRY METHOD 11/09/2024 12:30 PM [facility] eGFR 65 >=60 mL/min/1. 73m2 LAB CHEMISTRY METHOD 11/09/2024 12:30 PM [facility] Comment:Calculation based on the Chronic Kidney Disease Epidemiology Collaboration (CKD-EPI) equation refit without adjustment for race. BUN/Creatinine Ratio 25.9 LAB CHEMISTRY METHOD 11/09/2024 12:30 PM [facility] Calcium 8.9 8.5 - 10.5 mg/dL LAB CHEMISTRY METHOD 11/09/2024 12:30 PM [facility] AST (SGOT) 31 10 - 42 unit/L LAB CHEMISTRY METHOD 11/09/2024 12:30 PM [facility] ALT (SGPT) 26 10 - 60 unit/L LAB CHEMISTRY METHOD 11/09/2024 12:30 PM [facility] Alkaline Phosphatase 93 42 - 121 unit/L LAB CHEMISTRY METHOD 11/09/2024 12:30 PM [facility] Total Protein 6.3 6.0 - 8.0 g/dL LAB CHEMISTRY METHOD 11/09/2024 12:30 PM [facility] Albumin 3.8 3.2 - 5.0 g/dL LAB CHEMISTRY METHOD 11/09/2024 12:30 PM [facility] Total Bilirubin 0.8 0.0 - 1.4 mg/dL LAB CHEMISTRY METHOD 11/09/2024 12:30 PM [facility] Blood Venous blood specimen / Unknown Venipuncture / Unknown 11/09/2024 5:15 AM EST 11/09/2024 10:46 AM EST us Imer Taylor MD LAB BLOOD ORDERABLES Final Resul t [facility] [address] [place] [address], [place] [phone] * (ABNORMAL) Complete blood count (11/09/2024 5:15 AM EST) WBC 6.9 4.8 - 10.8 K/mcL LAB HEMETOLOGY METHOD 11/09/2024 11:16 AM [facility] RBC 2.80(L) 4.50 - 5.50 M/mcL LAB HEMETOLOGY METHOD 11/09/2024 11:16 AM [facility] Hemoglobin 7.6(L) 13.5 - 17.5 g/dL LAB HEMETOLOGY METHOD 11/09/2024 11:16 AM [facility] Hematocrit 24.6(L) 42.0 - 54.0 % LAB HEMETOLOGY METHOD 11/09/2024 11:16 AM [facility] MCV 87.9 79.0 - 98.0 FL LAB HEMETOLOGY METHOD 11/09/2024 11:16 AM [facility] MCH 27.1 27.0 - 32.0 pcg LAB HEMETOLOGY METHOD 11/09/2024 11:16 AM [facility] MCHC 30.9(L) 32.0 - 37.0 g/dL LAB HEMETOLOGY METHOD 11/09/2024 11:16 AM [facility] RDW 16.8(H) 11.0 - 15.0 % LAB HEMETOLOGY METHOD 11/09/2024 11:16 AM [facility] Platelets 192 130 - 400 K/mcL LAB HEMETOLOGY METHOD 11/09/2024 11:16 AM [facility] MPV 9.8 7.0 - 11.0 FL LAB HEMETOLOGY METHOD 11/09/2024 11:16 AM [facility] NRBC 0.0 <1.0 % LAB HEMETOLOGY METHOD 11/09/2024 11:16 AM [facility] NRBC Absolute 0.00 <0.10 K/mcL LAB HEMETOLOGY METHOD 11/09/2024 11:16 AM [facility] Blood Venous blood specimen / Unknown Venipuncture / Unknown 11/09/2024 5:15 AM EST 11/09/2024 10:46 AM EST us Imer Taylor MD LAB BLOOD ORDERABLES Final Resul t [facility] [address] [place] [address], documented in this encounter Visit Diagnoses Diagnosis Hypo-osmolality and hyponatremia documented in this encounter Care Teams Shellfish Bed Worker Relationship Specialty Start Date End Date Felix Randle MD [address] [place], [place] PCP - General Internal Medicine 06/24/12 documented as of this encounter
--- OUTSIDE RECORDS SUMMARY | 2025-07-21 10:36 | XMS_ITS | Encounter Summary ---
Author Organization [facility] Address [address] [place] [phone] Phone Care Team Providers Care Refinery Operator Coking Name Role Phone Felix Randle MD Primary Care Provider Encounter Details Date Type Department Care Team (Late st Contact Info) Description 03/09/2024 Procedure [facility] [address] [place] [address] Social History Tobacco Use Types Packs/Day Years [...] 8:35 PM EDT Brittni Talamantes, JESS * [place] Suicide Severity Rating Scale (Screener/Recent Self-Report) Question [...] on filedocumented in this encounter Care Teams Refinery Operator Coking Relationship Specialty Start Date End Date Felix Randle MD [address] [place] [address] PCP - General Internal Medicine 08/20/23 documented as of this encounter Additional Source Comments The information contained in this document represents components of the legal health record. It is not the complete legal health record.[facility]
--- OUTSIDE RECORDS SUMMARY | 2025-07-21 10:36 | XMS_ITS | Clinical Summary ---
Author Organization [address] [facility] Address [address] [place] [address] Phone Care Team Providers Care Group Sales Coordinator Name Role Phone Felix Randle MD Primary Care Provider [phone] Allergies No known active allergies Encounters Date Type Department Care Team Description 07/20/2025 1:06 PM EST Hospital Encounter [facility] Nuclear Medicine [address] [place] [phone] Arrived 07/20/2025 9:47 AM EST Hospital Encounter [facility] Nuclear Medicine [address] [place] [phone] History of kyphoplasty 06/15/2025 8:11 AM EDT - 06/15/2025 11:59 PM EDT Hospital Encounter [facility] Bone Density [address] [place] [phone] Age-related osteoporosis with current pathol fracture of vertebra, with delayed healing, subsequent encounter; Age-related osteoporosis with current pathological fracture, vertebra(e), initial encounter for fracture (CMS/HCC V24, CMS/[facility] V28) Discharge Disposition: Home or Self Care 05/04/2025 1:24 PM EDT - 05/04/2025 11:59 PM EDT Hospital Encounter [facility] Nuclear Medicine [address] [place] [phone] Discharge Disposition: Home or Self Care 05/04/2025 10:15 AM EDT - 05/04/2025 11:59 PM EDT Hospital Encounter [facility] Nuclear Medicine [address] [place] [phone] Fracture, lumbar vertebra, compression, sequela Discharge Disposition: [...] Influencers of Health Screening 11/10/2024 COVID-19 Vaccine (10 - Moderna risk season) 2025 06/27/2025, 06/01/2024, 07/09/2023, Additional history exists Hypertension/CHF/CAD Annual BMP Blood Test 02/27/2026 02/27/2025, 02/24/2025, 02/23/2025, Additional history exists Zoster Vaccines Completed 09/09/2022, 06/25/2022 Pneumococcal Vaccine: 50+ Years Completed 07/27/2023, 08/06/2019, 10/17/2018 RSV Immunization Adult Patients Completed 09/24/2023 Influenza Vaccine Completed 06/27/2025, , 07/13/2023, Additional history exists HIB Vaccines Aged Out No longer eligi [...] pathological fracture, vertebra(e), initial encounter for fracture ([facility] V24, [facility] V28) NM BONE/JOINT SCAN SPECT CT Routine [...] probability of hip fracture of 7.9%. Code 40951 -------- FINAL REPORT -------- Dictated By: Navarro Ewing Dictated Date: 06/15/2025 09:39 ET Assigned Physician: Navarro Ewing Reviewed and Electronically Signed By: Navarro Ewing Signed Date: 06/15/2025 09:42 ET Workstation ID: [id number] Transcribed By: Self Edit Transcribed Date: 06/15/2025 [...] bone mineral density at L1-2 is 0.787 gm/ue7vmrcm is 66% of that of young normals [...] probability of hip fracture of 7.9%. Code 41110 -------- FINAL REPORT -------- Dictated By: Navarro Ewing Dictated Date: 06/15/2025 09:39 ET Assigned Physician: Navarro Ewing Reviewed and Electronically Signed By: Navarro Ewing Signed Date: 06/15/2025 09:42 ET Workstation ID: [id number] Transcribed By: Self Edit Transcribed Date: 06/15/2025 09:39 ET us Emeka Salgado MD IM DXA PROCEDURES Final Result * NM Bone/Joint [...] Signed Date: 05/04/2025 16:16 ET Workstation ID: [id number] Transcribed By: Self Edit Transcribed Date: 05/04/2025 [...] these are only partially included in the oegso-my-sulv but there is associated radiotracer uptake. Incidental [...] deformity at L4. Maximum height loss of lanusubinrohn60%. There is associated radiotracer uptake. T11 compression fracture with approximately 50% height loss. There isassociated radiotracer uptake. Superior endplate fracture at T10 with approximately 50% height loss.There is associated radiotracer uptake. Irregular sclerosis in the sacral ala consistent with bilateral sacralinsufficiency fractures; these are only partially included in wskuhjyo-kp-lqme but there is associated radiotracer uptake. Incidental [...] Signed Date: 05/04/2025 16:16 ET Workstation ID: [id number] Transcribed By: Self Edit Transcribed Date: 05/04/2025 15:50 ET Emeka Salgado MD [facility] PROCEDURES Final Result * (ABNORMAL) Basic metabolic panel (02/27/2025 6:03 AM EDT) Sodium 129(L) 133 - 145 mmol/L LAB CHEMISTRY METHOD 02/27/2025 1:18 PM [facility] Potassium 4.4 3.5 - 5.5 mmol/L LAB CHEMISTRY METHOD 02/27/2025 1:18 PM [facility] Chloride 89(L) 96 - 110 mmol/L LAB CHEMISTRY METHOD 02/27/2025 1:18 PM [facility] CO2 31 21 - 32 mmol/L LAB CHEMISTRY METHOD 02/27/2025 1:18 PM [facility] Anion Gap 9 3 - 11 LAB CHEMISTRY METHOD 02/27/2025 1:18 PM EDT [facility] Glucose 103(H) 70 - 100 mg/dL LAB CHEMISTRY METHOD 02/27/2025 1:18 PM EDT [facility] BUN 33(H) 5 - 25 mg/dL LAB CHEMISTRY METHOD 02/27/2025 1:18 PM EDT [facility] Creatinine 1.12 0.70 - 1.30 mg/dL LAB CHEMISTRY METHOD 02/27/2025 1:18 PM EDT [facility] eGFR 68 >=60 mL/min/1. 73m2 LAB CHEMISTRY METHOD 02/27/2025 1:18 PM EDT [facility] Comment:Calculation based on the Chronic Kidney Disease Epidemiology Collaboration (CKD-EPI) equation refit without adjustment for race. BUN/Creatinine Ratio 29.5 LAB CHEMISTRY METHOD 02/27/2025 1:18 PM EDT [facility] Calcium 9.1 8.5 - 10.5 mg/dL LAB CHEMISTRY METHOD 02/27/2025 1:18 PM EDT [facility] Blood Venous blood specimen / Unknown Venipuncture / Unknown 02/27/2025 6:03 AM EDT 02/27/2025 10:57 AM EDT Lala Low MD LAB BLOOD ORDERABLES Final Resu lt [facility] [address] [place] [address], from Last 3 Months or Most Recently Relevant to Health Maintenance Insurance MEDICARE [employer] Care Teams Group Sales Coordinator Relationship Specialty Start Date End Date Felix Randle MD [address] [facility] [address] [place], [place] PCP - General Internal Medicine 06/24/12
--- OUTSIDE RECORDS SUMMARY | 2025-07-21 10:36 | XMS_ITS | Data Portability ---
Author Organization [place] - [facility], Allergy Address [address] [address] Care Team Providers Care In School Suspension Coordinator Name Role Phone GUSTAVO GOLDSMITH OTHER Assessment [...] be purchased at [facility] in [place] if needed. Follow-up was recommended for next [...] ed. Imaging XR, esopha gram 2024 025 [facility], [address] [place], [address], 12/09/2024 10:06:21 Medication Orders sodium chlori de 0.9 % irriga tion soluti on 2024 025 [id number], [address] [place], [address], 07/11/2025 13:52:32 Patient TargetsNo targets recorded. Patient Instructions Encounter Date Encounter Id Patient Instructions Last Modified By Organization Details Last Modified Time 05/19/2025 [id number] Prepare for winter by using humidification patches [...] note. [email or web address] Not available 05/19/2025 16:00:35 07/11/2025 [id number] Use 0.9% sodium chloride solution for nebulizer as prescribed: 5 mL four times daily. Obtain solution from [facility] on [facility] in [place] if needed. 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 Tobacco abuse; Note: Date Diagnosed : 08/07/2014 1:24 PM (305.1) Not Available [facility] 4 02:50:45 Difficult y speaking Active 2014 Hoarsenes s; Note: Date Diagnosed : 01/12/2015 5:28 PM (784.49) Not Available [facility] 4 02:50:47 Deviated nasal septum 479545716 Active 2014 Nasal septal deviation ; Note: Date Diagnosed : 08/07/2014 1:24 PM (470) ; Start Date : 4 Deviate d nasal septum; Note: Date Diagnosed : 03/02/2015 1:09 PM (J34.2) [mapped from ICD9 code: 470] Not Available [facility] 4 02:50:47 Finding of resonance of voice 747531785 Active 2014 Other voice and resonance disorders ; Note: Date Diagnosed : 03/02/2015 1:09 PM (R49.8) [mapped from ICD9 code: 784.49] Not Available [facility] 4 02:50:41 Tobacco dependenc e caused by cigarette s 52329036395 874587 Active 2014 Nicotine dependenc e, cigarette s, uncomplic ated; Note: Date Diagnosed : 03/02/2015 1:09 PM (F17.210) [mapped from ICD9 code: 305.1] Not Available [facility] 4 02:50:43 Edema of larynx 28599481 Active 2014 Laryngeal edema; Note: Date Diagnosed : 08/07/2014 1:24 PM (478.6) ; Start Date : 4 Edema of larynx; Note: Date Diagnosed : 03/02/2015 1:09 PM (J38.4) [mapped from ICD9 code: 478.6] Not Available [facility] 4 02:50:46 Sensorine ural hearing loss of bilateral ears 391529313 Active 2014 Sensorine ural hearing loss, bilateral ; Note: Date Diagnosed : 5 2:42 PM (H90.3) Not Available [facility] 4 02:50:42 Neoplasm of uncertain behavior of larynx 13924936 Active 2015 Neoplasm of uncertain behavior of larynx; Note: Date Diagnosed : 03/20/2016 9:08 AM (D38.0) Not Available [facility] 4 02:50:43 Dysphonia 07040330 Active 2016 Hoarsenes s; Note: Date Diagnosed : 09/24/2016 9:16 AM (R49.0) Not Available [facility] 4 02:50:47 Disorder of vocal cord 17297214 Active 2016 Leukoplak ia of vocal cords; Note: Date Diagnosed : 10/16/2016 11:47 AM (J38.3) Not Available [facility] 4 02:50:45 Lesion of oral mucosa 36245024900 67556 Active 2016 Other lesions of oral mucosa; Note: Date Diagnosed : 06/01/2017 2:12 PM (K13.79) Not Available [facility] 4 02:50:48 Malignant neoplasm of larynx 417416149 Active 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, unspecifi ed; Note: Date Diagnosed : 8 2:33 PM (C32.9) Not Available [facility] 4 02:50:44 Bleeding from nose 719383336 Active 2018 Epistaxis ; Note: Date Diagnosed : 10/20/2018 9:07 AM (R04.0) Not Available [facility] 4 02:50:43 Tracheost chuckie hemorrhag e 90965615 Active 2018 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; Note: Date Diagnosed : 11/23/2018 2:21 PM (J95.01) Not Available [facility] 4 02:50:42 Impacted cerumen of bilateral ears 01442890484 98464 Active 2018 Impacted cerumen, bilateral ; Note: Date Diagnosed : 02/24/2019 3:34 PM (H61.23) Impacte d cerumen, bilateral ; Note: Date Diagnosed : 12/05/2016 3:29 PM (H61.23) ; Start Date : 7 Not Available [facility] 4 02:50:46 Follow-up visit Active 2018 Encounter for follow-up examinati on after completed treatment for malignant neoplasm; Note: Date Diagnosed : 9 4:14 PM (Z08) Encount er for follow-up examinati on after completed treatment for condition s other than malignant neoplasm; Note: Date Diagnosed : 10/12/2018 2:03 PM (Z09) ; Start Date : 9 Not Available [facility] 4 02:50:48 History of malignant neoplasm of larynx 930236422 Active 2018 Primary tumor location: right supraglot tic Tumor staging: T1aN0 SCCA Treatment : Laryngect chuckie and RT Date of treatment completio n: Surgery 09/29/18, RT 12/2003 Oncology team: Beau Samaniego MD [address] [place] [address], [place], [address] , [facility] - [facility] 5 09:20:31 Hemoptysi s 16822218 Active 2021 Hemoptysi s; Note: Date Diagnosed : 12/12/2021 9:19 AM (R04.2) Not Available [facility] 4 02:50:44 Tinnitus of left ear 09541034631 06 Active 2023 Tinnitus, left ear; Note: Date Diagnosed : 11/17/2023 2:35 PM (H93.12) Not Available [facility] 4 02:50:44 Dysphagia 58801833 Active 2024 Tanisha pollack, [place] - [facility] [place] 5 17:35:00 Problem Notes None recorded. Procedures Surgical History Date Name Laterality Status Provider Name and Address Organization Details Recorded Time 05/19/2025 Nasopharyng oscopy_DP completed BENIGNO YANEZ MD [address] [place] [address],[address], [address], [facility] 05/18/2025 21:29:00 11/16/2024 Nasopharyng oscopy_DP completed BENIGNO YANEZ MD [address] [place] [address],[address], [address], [place] [facility] 11/16/2024 15:46:18 09/13/2024 Comp Audio with Tymps - 14852 & 73323 completed DAYAN ALCALA [address] [place] [address],[address], [address], [facility] - Ear [...] mg tablet 01/05 completed Medicati on ID: [id number] Du ration Value: 30 Brand Name: atenolol Send Method: E-Prescr ibed Sub s Allowed: subs OK Medic ationGen ericName : atenolol Not Available Not Available Not Available acetazola mide 250 mg tablet TAKE 2 TABLETS BY MOUTH EVERY THURSDAY AND THURSDAY active Not Available Not Available No t Available torsemide 10 mg tablet 01/05 completed Medicati on ID: [id number] D uration Value: 30 Brand Name: torsemid e Send Method: E-Prescr ibed Sub s Allowed: subs OK Medic ationGen ericName : torsemid e Not Available Not Available Not Available clopidogr el 75 mg tablet TAKE ONE TABLET BY MOUTH EVERY DAY active Not Available Not Available No t Available digoxin 250 mcg (0.25 mg) tablet 09/13 completed Medicati on ID: [id number] B rand Name: digoxin Send Method: E-Prescr [...] mg capsule 01/05 [place] ID: [id number] Du ration Value: 30 Brand Name: tamsulos [...] iron) tablet 11/16 completed Medicati on ID: [id number] D uration Value: 60 Brand Name: ferrous [...] 24 hr 09/13 completed Medicati on ID: [id number] B rand Name: metoprol ol succinat e [...] mg tablet 09/13 completed Medicati on ID: [id number] B rand Name: lisinopr il Send Method: E-Prescr ibed Sub s Allowed: subs OK Medic ationGen ericName : lisinopr il Not Available Not Available Not Available terazosin 10 mg capsule TAKE ONE CAPSULE BY MOUTH EVERY DAY active Not Available Not Available No t Available finasteri de 5 mg tablet 01/05 completed Medicati on ID: [id number] D uration Value: 90 Brand Name: finaster [...] mg tablet 09/24 completed Medicati on ID: [id number] Du ration Value: 20 Reason: () Brand [...] mg tablet 01/05 [place] ID: [id number] Du ration Value: 5 Brand Name: oxycodon [...] Updated DateTime 09/13/2024 185.42 cm 19.8 kg/m2 31409.86 g Nathalia Medel [place] - [facility] 09/13/2024 15:47:28 Date Recorded Body height Provider Name an d Address Organization Details Last Updated DateTime 11/16/2024 185.42 cm TORSTEN JUDD [place] - [facility] 11/16/2024 15:25:59 Date Recorded Body height Provider Name an d Address Organization Details Last Updated DateTime 05/19/2025 185.42 cm Karma [address], [address], [place] - [facility] 05/19/2025 14:58:11 Date Recorded Body mass index (BMI) Body weight Provider Name and Address Organization Details Last Updated DateTime 05/19/2025 17.7 kg/m2 55287.38 g [facility] - [facility] 05/19/2025 15:57:01 Date Recorded Body height Body mass index (BMI) Body weight Provider Name and Address Organization Details Last Updated DateTime 07/11/2025 185.42 cm 19.4 kg/m2 72041.08 g [facility] - [facility] 07/11/2025 13:37:00 Social History None recorded. Functional Status None recorded. Mental Status None recorded. Family History Nothing Reported. Medical History No medical history recorded. Past Encounters Encounter ID Performer Location Encounter Start Date Encounter Closed Date Diagnosis/Indication Diagnosis SNOMED-CT Code Diagnosis ICD10 Code Diagnosis IMO Codes Diagnosis Note [id number] BENIGNO YANEZ MD [facility] [address] [address] 09/13/2024 15:20:32 09/13/2024 16:23:25 Sensorineural hearing loss of bilateral ears 139280571 H90.3 History of malignant neoplasm of larynx 231760141 Z85.21 cancer surveillan in November 2024 [id number] DAYAN ALCALA [facility] [address] [address] 09/13/2024 15:32:00 09/14/2024 07:35:34 Sensorineural hearing loss of bilateral ears 723949041 H90.3 Right Ear:Normal hearing through 500 Hz sloping to a moderate SNHL with good speech discrimina tion.Type A tympanogra m.Left Ear:Normal hearing through 1.5K Hz sloping to a moderate SNHL with good speech discrimina tion.TEST 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 [id number] BENIGNO YANEZ MD [facility] [address] [address] 11/16/2024 14:54:26 11/16/2024 15:51:35 History of malignant neoplasm of larynx 417830068 Z85.21 [id number] TANISHA GRIDER PA-C [facility] on [address] [place] [address] 12/09/2024 08:55:54 12/09/2024 10:06:21 Malignant neoplasm of larynx 553027817 C32.9 Dysphagia 32938943 R13.1 0 [id number] BENIGNO YANEZ MD [facility] [address] [address] 05/19/2025 14:48:43 05/19/2025 16:02:52 Malignant neoplasm of larynx 521479526 C32.9 nasopharyn x exam was benign Dysphagia 65603328 R13.1 0 [id number] BENIGNO YANEZ MD [facility] [address] [address] 07/11/2025 13:13:57 07/11/2025 13:53:11 Malignant neoplasm of larynx 468067333 C32.9 Tracheosto my hemorrhage 90146438 J95.01 Health Concerns Section Related Observation LastModified by Organization Detai ls LastModified Time None Recorded Concern Status LastModified by Organization Details LastModified Time None Recorded Advance Directives Directive None Recorded Payers Insurance Date Sequence Insurance Name Policy Number Policy López Covered Member ID López Member ID Guarantor Name 07/11/2025 1 [place] [employer] Sanket Little [id number] Sanket Little 07/11/2025 2 [employer] (MEDICARE SUPPLEMENT) Sanket Little [id number] Sanket Little Notes Date Note Type Note Provider Name and Address Organization Details Recorded Time 09/13/2024 text/html ROS as noted in the HPI Primary tumor location: right supraglotticTumor staging: T1aN0 SCCATreatment: Laryngectomy and RTDate of treatment completion: Surgery 09/29/18, RT 12/2003Oncology team: Beau Samaniego airbag deploy from [facility] mid Aug. since that time he was not hearing bells from telephone, microwave, alarms as welltinnitus is mostly resolved PV 11/17/23 Beau Left tinnitus, resolved prior to visit BENIGNO YANEZ MD 100 [facility],[address], [address], [facility] 09/13/2024 16:18:57 11/16/2024 text/html ROS as noted in the HPI Primary tumor location: right supraglotticTumor staging: T1aN0 SCCATreatment: Laryngectomy and RTDate of treatment completion: Surgery 09/29/18, RT 12/2003Oncology team: Beau Samaniego after watchman was converted from coumadin to plavix and ASA. was admitted to [facility] for hemoptysis. identified a pulmonary bleed the clots were removed with bronchoscopy. PV 09/13/24 Beau audio B carlito YANEZ MD [address] [place] [address],[address], [address], [facility] 11/16/2024 15:49:08 12/09/2024 text/html ROS as [...] coumadin to plavix and ASA.was admitted to [facility] for hemoptysis. identified a pulmonary bleed the clots were removed with bronchoscopy.PV 09/13/24 Beau audio B carlito PEARSON MD [facility] [place], [address], [place] - [facility] 12/12/2024 12:53:42 05/19/2025 text/html Primary tumor location: right supraglottic Tumor staging: T1aN0 SCCA Treatment: Laryngectomy and RT Date of treatment completion: Surgery 09/29/18, RT 12/2003 Oncology team: eBau Samaniego after watchman was converted from coumadin to plavix and ASA. was admitted to [facility] for hemoptysis. identified a pulmonary bleed [...] to his health challenges. BENIGNO YANEZ MD [address] [place] [address], [address], [place] - [facility] 05/19/2025 16:01:46 07/11/2025 text/html Primary tumor location: right supraglottic Tumor staging: T1aN0 SCCA Treatment: Laryngectomy and RT Date of treatment completion: Surgery 09/29/18, RT 12/2003 Oncology team: Beau Samaniego after watchman was converted from coumadin to plavix and ASA. was admitted to [facility] for hemoptysis. identified a pulmonary bleed [...] 0.9% sodium chloride solution with relief. BENIGNO YANEZ MD [address] [place] [address], [address] - [facility] 07/11/2025 13:54:10
--- OUTSIDE RECORDS SUMMARY | 2025-07-21 10:36 | XMS_ITS | Encounter Summary ---
Author Organization [facility] Address [address] [place] [address] Phone Care Team Providers Care Sas Programmer Name Role Phone Felix Randle MD Primary Care Provider Encounter Details Date Type Department Care Team (Latest Contact Info) Description 04/13/2024 Transcribe Orders [facility] Phleb Y[facility] [address] [address] Re Beyer NP [address] [place] [address] Iron deficiency anemia, unspecified iron deficiency anemia [...] VITAMIN B12 791 232 - 1,245 pg/mL [facility] Blood 04/13/2024 4:15 PM EDT 04/13/2024 4:21 PM EDT us Re Beyer BEE TENDER LAB BLOOD BKR ORDERABLES Final Result [address] [address] * (ABNORMAL) PT-INR (04/13/2024 4:15 PM EDT) Pathologist [facility] PT 39.2(H) 10.2 - 12.9 sec [facility] INR 3.4(H) 0.9 - 1.1 [facility] Comment:Therapeutic range fo r oral Vitamin K antagonists: 2.0-3.5 Blood 04/13/2024 4:15 PM EDT 04/13/2024 4:21 PM EDT Re Beyer NP LAB BLOOD BKR ORDERABLES Final Result Performing Organization Address [facility]/ZIP Co de Phone Number [address] [address] * (ABNORMAL) Iron and iron binding capacity (04/13/2024 4:15 PM EDT) Pathologist [facility] IRON 52 45 - 160 ug/dL [facility] IRON BINDING CAPACITY 268 228 - 428 ug/dL [facility] TRANSFERRIN SATURAT. 19(L) 20 - 55 % [facility] Blood 04/13/2024 4:15 PM EDT 04/13/2024 4:21 PM EDT Re Beyer NP LAB BLOOD BKR ORDERABLES Final Result Performing Organization Address City/[facility]/ZIP Co de Phone Number [address] [address] * (ABNORMAL) Comprehensive metabolic panel (04/13/2024 4:15 PM EDT) SODIUM 137 133 - 146 mmol/L [facility] POTASSIUM 3.5 3.3 - 5.1 mmol/L [facility] CHLORIDE 99 96 - 108 mmol/L [facility] CO2 27 21 - 35 mmol/L [facility] BUN 13 6 - 19 mg/dL [facility] CREATININE 1.10 0.5 - 1.5 mg/dL [facility] GLUCOSE 120(H) 70 - 99 mg/dL [facility] ALBUMIN 4.4 3.9 - 4.8 g/dL [facility] TOTAL PROTEIN 7.0 6.5 - 8.0 g/dL [facility] CALCIUM 9.0 8.4 - 10.3 mg/dL [facility] ALKALINE PHOSPHATASE 97 39 - 117 U/L [facility] TOTAL BILIRUBIN 1.0 0.0 - 1.2 mg/dL [facility] AST 28 0 - 37 U/L [facility] ALT 12 0 - 40 U/L [facility] GLOBULIN 2.6 1 - 4.8 g/dL [facility] EGFR 70 >59 mL/min/1.7 3m2 [facility] Comment:Estimated glomerular filtration rate calculated using the CKD-EPI refit equation. ANION GAP 15 10 - 20 mmol/L [facility] Blood 04/13/2024 4:15 PM EDT 04/13/2024 4:21 PM EDT Re Beyer NP LAB BLOOD BKR ORDERABLES Final Result [facility] [address] [place] [address] * (ABNORMAL) CBC (04/13/2024 4:15 PM EDT) WBC 5.61 4.00 - 11.00 K/uL [facility] RBC 3.12(L) 3.90 - 5.69 M/uL [facility] HGB 9.6(L) 12.4 - 17.3 g/dL [facility] HCT 30.6(L) 37.0 - 51.0 % [facility] PLT 108(L) 140 - 430 K/uL [facility] MCV 98.1(H) 78.0 - 97.0 fL [facility] MCH 30.8 25.0 - 33.0 pg [facility] MCHC 31.4(L) 32.0 - 36.0 g/dL [facility] RDW 16.2(H) 11.0 - 15.0 % [facility] MPV 10.3 8.4 - 12.8 fl [facility] Blood 04/13/2024 4:15 PM EDT 04/13/2024 4:21 PM EDT us Re Beyer NP LAB BLOOD BKR ORDERABLES Final Result Performing Organization Address [facility]/ZIP Co de Phone Number [address] [address] * Immunoglobulin A (04/13/2024 4:15 PM EDT) IgA 152 70 - 400 mg/dL [facility] Blood 04/13/2024 4:15 PM EDT 04/13/2024 4:21 PM EDT us Re Beyer NP LAB BLOOD BKR ORDERABLES Final Result Performing Organization Address City/[facility]/ZIP Co de Phone Number [address] [address] * Tissue transglutaminase IgA (04/13/2024 4:15 PM EDT) TTG IGA ANTIBODY <1.2 <4.0 (Negative) U/mL [facility] Blood 04/13/2024 4:15 PM EDT 04/13/2024 4:21 PM EDT Re Beyer NP LAB BLOOD BKR ORDERABLES Final Result [facility] [address] [place] [address] documented in this encounter Visit Diagnoses Diagnosis Iron deficiency anemia, unspecified iron deficiency anemia type- Primary documented in this encounter Care Teams Sas Programmer Relationship Specialty Start Date End Date Felix Randle MD [address] [place] [address] PCP - General Internal Medicine 08/20/23 documented as of this encounter Additional Source Comments The information contained in this document represents components of the legal health record. It is not the complete legal health record.[facility]
--- OUTSIDE RECORDS SUMMARY | 2025-07-21 10:37 | XMS_ITS | Encounter Summary ---
Author Organization [facility] Address [address] [place] [address] Phone Care Team Providers Care Bench Hand Name Role Phone Felix Randle MD Primary Care Provider Encounter Details Date Type Department Care Team (Late st Contact Info) Description 07/19/2024 Procedure Pass [facility] Endoscopy Admitting Dept Virtual Department [address] [place] [address] Social History Tobacco Use Types Packs/Day Years [...] on filedocumented in this encounter Care Teams Bench Hand Relationship Specialty Start Date End Date Felix Randle MD [address] [place] [address] PCP - General Internal Medicine 08/20/23 documented as of this encounter Additional Source Comments The information contained in this document represents components of the legal health record. It is not the complete legal health record.[facility]
--- OUTSIDE RECORDS SUMMARY | 2025-07-21 10:37 | XMS_ITS | Clinical Summary ---
Author Organization [facility] Address [address] [place] [phone] Phone Care Team Providers Care Manufacturing Engineering Technologist Name Role Phone Felix Randle MD Primary Care Provider Allergies Active Allergy Reactions Criticality Noted Date Comments Iron Sucrose Bleeding,Hypotension High 02/24/2023 hypotension Medications ascorbic acid, vitamin C, (VITAMIN C) 500 MG tablet Take 500 mg by mouth daily. Active calcium carbonate (CALCIUM 500 ORAL) Take by mouth. Activ e ferrous sulfate 325 mg (65 mg habematolel iron) tablet Take 325 mg by mouth [...] he took 05/17 -He is followed by [facility] heart failure service Dr Leonard -He was [...] setting of known cardiac amyloidosis. Followed at [facility]. Significant weight gain over the last several [...] involvement with the specialty cardiology practice at [facility]. He is on tafamidis, ordered as nonformulary [...] EDT): -He was very recently hospitalized at [facility] 05/13 - 05/14 for evaluation of [...] on digoxin (this is not on his [facility] discharge list however it was mentioned in [...] ecorded Are you denied basic needs s [facility] as food, clothing, or medical care? No 05/18/2024 In the past 12 months have y ou been in a relationship with a person who hurts, threatens, or tries to control you? No 05/18/2024 Are you denied basic needs s [facility] as food, clothing, or medical care? No [...] patient's age to complete this topic IPV VACCINES Aged Out No longer eligi ble [...] EDT) SODIUM 136 133 - 146 mmol/L [facility] CHLORIDE 98 96 - 108 mmol/L [facility] POTASSIUM 3.6 3.3 - 5.1 mmol/L [facility] CO2 27 21 - 35 mmol/L [facility] BUN 14 6 - 19 mg/dL [facility] CREATININE 1.20 0.5 - 1.5 mg/dL [facility] GLUCOSE 92 70 - 99 mg/dL [facility] CALCIUM 9.0 8.4 - 10.3 mg/dL [facility] EGFR 63 >59 mL/min/1.7 3m2 [facility] Comment:Estimated glomerular filtration rate calculated using the CKD-EPI refit equation. ANION GAP 15 10 - 20 mmol/L [facility] Blood 05/20/2024 6:40 AM EDT 05/20/2024 6:48 AM EDT us Mary Lentz MD LAB BLOOD BKR ORDERABLES Fi nal Result [address] [id number] from Last 3 Months or Most Recently Relevant to Health Maintenance Insurance MEDICARE PART A & B [facility] MEDICARE SUPPLEMENT MEDICARE PART A & B [facility] MEDICARE SUPPLEMENT MEDICARE PART A & B Member Subscriber Plan / Payer (Ef fective 2013-Present) Name:Sanket Little Member ID:[id number] Relation to Subscriber:Self Name:Sanket Little Subscriber ID:[id number] Payer ID:[id number] Group ID:Not on file Type:Medicare Address: [place] [address] MEDICARE SUPPLEMENT MEDICARE PART A & B [facility] MEDICARE SUPPLEMENT MEDICARE PART A & B MEDICARE SUPPLEMENT MEDICARE PART A & B [id number] [place] [address] MEDICARE SUPPLEMENT MEDICARE PART A & B [facility] MEDICARE SUPPLEMENT MEDICARE PART A & B [facility] MEDICARE SUPPLEMENT MEDICARE PART A & B [facility] MEDICARE SUPPLEMENT Advance Directives For more information, please contact: [phone] (9AM - 5PM [place], Thursday-Thursday) Documents on File Type Date Recorded Patient Master Planner Expl anation Healthcare Proxy 05/23/2024 3:08 PM * Full Code (Latest Code Status on File) Date Activated Date Inactivated Comments 05/18/2024 4:14 PM Question Answer Comments Code Status Confirmed With: Patient * Full Code Date Activated Date Inactivated Comments 03/09/2024 7:08 PM 05/18/2024 4:14 PM Question Answer Comments Code Status Confirmed With: Patient Care Teams Manufacturing Engineering Technologist Relationship Specialty Start Date End Date Felix Randle MD [address] [place] [id number] PCP - General Internal Medicine 08/20/23 Additional Source Comments The information contained in this document represents components of the legal health record. It is not the complete legal health record.[facility]
--- OUTSIDE RECORDS SUMMARY | 2025-07-21 10:37 | XMS_ITS | Continuity of Care Document ---
Author Organization [place] [facility], [facility] Address [address] [place] [address] Care Team Providers Care Nanosystems Engineer Name Role Phone GUSTAVO GOLDSMITH OTHER Assessment [...] that the solution could be purchased at [employer] [facility] [employer] [facility] if needed. Follow-up was recommended for next [...] YANNICK [id number], [address] [facility], [place], [address], 07/11/2025 13:52:32 Patient TargetsNo targets recorded. Patient Instructions Encounter Date Encounter Id Patient Instructions Last Modified By Organization Details Last Modified Time 07/11/2025 [id number] Use 0.9% sodium chloride solution for nebulizer as prescribed: 5 mL four times daily. Obtain solution from [facility] [address] in [place] if needed. 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 Tobacco abuse; Note: Date Diagnosed : 08/07/2014 1:24 PM (305.1) Not Available [facility] 4 02:50:45 Difficult y speaking Active 2014 Hoarsenes s; Note: Date Diagnosed : 01/12/2015 5:28 PM (784.49) Not Available [facility] 4 02:50:47 Deviated nasal septum 040650521 Active 2014 Nasal septal deviation ; Note: Date Diagnosed : 08/07/2014 1:24 PM (470) ; Start Date : 4 Deviate d nasal septum; Note: Date Diagnosed : 03/02/2015 1:09 PM (J34.2) [mapped from ICD9 code: 470] Not Available [facility] 4 02:50:47 Finding of resonance of voice 823685109 Active 2014 Other voice and resonance disorders ; Note: Date Diagnosed : 03/02/2015 1:09 PM (R49.8) [mapped from ICD9 code: 784.49] Not Available [facility] 4 02:50:41 Tobacco dependenc e caused by cigarette s 63878568205 234127 Active 2014 Nicotine dependenc e, cigarette s, uncomplic ated; Note: Date Diagnosed : 03/02/2015 1:09 PM (F17.210) [mapped from ICD9 code: 305.1] Not Available [facility] 4 02:50:43 Edema of larynx 09993056 Active 2014 Laryngeal edema; Note: Date Diagnosed : 08/07/2014 1:24 PM (478.6) ; Start Date : 4 Edema of larynx; Note: Date Diagnosed : 03/02/2015 1:09 PM (J38.4) [mapped from ICD9 code: 478.6] Not Available [facility] 4 02:50:46 Sensorine ural hearing loss of bilateral ears 432924395 Active 2014 Sensorine ural hearing loss, bilateral ; Note: Date Diagnosed : 5 2:42 PM (H90.3) Not Available [facility] 4 02:50:42 Neoplasm of uncertain behavior of larynx 28269282 Active 2015 Neoplasm of uncertain behavior of larynx; Note: Date Diagnosed : 03/20/2016 9:08 AM (D38.0) Not Available [facility] 4 02:50:43 Dysphonia 69437798 Active 2016 Hoarsenes s; Note: Date Diagnosed : 09/24/2016 9:16 AM (R49.0) Not Available [facility] 4 02:50:47 Disorder of vocal cord 86329918 Active 2016 Leukoplak ia of vocal cords; Note: Date Diagnosed : 10/16/2016 11:47 AM (J38.3) Not Available [facility] 4 02:50:45 Lesion of oral mucosa 49010162669 05916 Active 2016 Other lesions of oral mucosa; Note: Date Diagnosed : 06/01/2017 2:12 PM (K13.79) Not Available [facility] 4 02:50:48 Malignant neoplasm of larynx 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 Active 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, unspecifi ed; Note: Date Diagnosed : 8 2:33 PM (C32.9) Not Available [facility] 4 02:50:44 Bleeding from nose 904512275 Active 2018 Epistaxis ; Note: Date Diagnosed : 10/20/2018 9:07 AM (R04.0) Not Available [facility] 4 02:50:43 Tracheost chuckie hemorrhag e 12366354 Active 2018 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; Note: Date Diagnosed : 11/23/2018 2:21 PM (J95.01) Not Available [facility] 4 02:50:42 Impacted cerumen of bilateral ears 70287747477 62746 Active 2018 Impacted cerumen, bilateral ; Note: Date Diagnosed : 02/24/2019 3:34 PM (H61.23) Impacte d cerumen, bilateral ; Note: Date Diagnosed : 12/05/2016 3:29 PM (H61.23) ; Start Date : 7 Not Available [facility] 4 02:50:46 Follow-up visit Active 2018 Encounter for follow-up examinati on after completed treatment for malignant neoplasm; Note: Date Diagnosed : 9 4:14 PM (Z08) Encount er for follow-up examinati on after completed treatment for condition s other than malignant neoplasm; Note: Date Diagnosed : 10/12/2018 2:03 PM (Z09) ; Start Date : 9 Not Available [facility] 4 02:50:48 History of malignant neoplasm of larynx 474687092 Active 2018 Primary tumor location: right supraglot tic Tumor staging: T1aN0 SCCA Treatment : Laryngect chuckie and RT Date of treatment completio n: Surgery 09/29/18, RT 12/2003 Oncology team: Beau Samaniego MD [address] [place] [address], [facility] RAHAT zaragoza, [phone] , [facility] - [facility] 5 09:20:31 Hemoptysi s 69037022 Active 2021 Hemoptysi s; Note: Date Diagnosed : 12/12/2021 9:19 AM (R04.2) Not Available [facility] 4 02:50:44 Tinnitus of left ear 31116386944 06 Active 2023 Tinnitus, left ear; Note: Date Diagnosed : 11/17/2023 2:35 PM (H93.12) Not Available [facility] 4 02:50:44 Dysphagia 41597885 Active 2024 Tanisha pollack [place] - [facility] [place] 17:35:00 Problem Notes None recorded. Procedures Surgical History Date Name Laterality Status Provider Name and Address Organization Details Recorded Time 05/19/2025 Nasopharyng oscopy_DP completed BENIGNO OL MD [address] [facility],[address], [address], [facility] 05/18/2025 21:29:00 11/16/2024 Nasopharyng oscopy_DP completed BENIGNO LO MD [address] [facility],[address], [address], [facility] 11/16/2024 15:46:18 09/13/2024 Comp Audio with Tymps - 41621 & 94249 completed DAYAN ALCALA [address] [facility],[address], [address], [facility] 09/13/2024 15:32:20 Imaging Results None recorded. Procedure [...] mg tablet 01/05 completed Medicati on ID: [id number] Du ration Value: 30 Brand Name: atenolol Send Method: E-Prescr ibed Sub s Allowed: subs OK Medic ationGen ericName : atenolol Not Available Not Available Not Available acetazola mide 250 mg tablet TAKE 2 TABLETS BY MOUTH EVERY THURSDAY AND THURSDAY active Not Available Not Available No t Available torsemide 10 mg tablet 01/05 completed Medicati on ID: [id number] D uration Value: 30 Brand Name: torsemid e Send Method: E-Prescr ibed Sub s Allowed: subs OK Medic ationGen ericName : torsemid e Not Available Not Available Not Available clopidogr el 75 mg tablet TAKE ONE TABLET BY MOUTH EVERY DAY active Not Available Not Available No t Available digoxin 250 mcg (0.25 mg) tablet 09/13 completed Medicati on ID: [id number] B rand Name: digoxin Send Method: E-Prescr [...] mg capsule 01/05 completed Medicati on ID: [id number] Du ration Value: 30 Brand Name: tamsulos [...] iron) tablet 11/16 completed Medicati on ID: [id number] D uration Value: 60 Brand Name: ferrous [...] 24 hr 09/13 completed Medicati on ID: [id number] B rand Name: metoprol ol succinat e [...] mg tablet 09/13 completed Medicati on ID: [id number] B rand Name: lisinopr il Send Method: E-Prescr ibed Sub s Allowed: subs OK Medic ationGen ericName : lisinopr il Not Available Not Available Not Available terazosin 10 mg capsule TAKE ONE CAPSULE BY MOUTH EVERY DAY active Not Available Not Available No t Available finasteri de 5 mg tablet 01/05 completed Medicati on ID: [id number] D uration Value: 90 Brand Name: finaster [...] mg tablet 09/24 completed Medicati on ID: [id number] Du ration Value: 20 Reason: () Brand [...] mg tablet 01/05 completed Medicati on ID: [id number] Du ration Value: 5 Brand Name: oxycodon [...] Updated DateTime 07/11/2025 185.42 cm 19.4 kg/m2 99948.08 g [facility] 07/11/2025 13:37:00 Social History None recorded. Functional Status None recorded. Mental Status None recorded. Family History Nothing Reported. Medical History No medical history recorded. Past Encounters Encounter ID Performer Location Encounter Start Date Encounter Closed Date Diagnosis/Indication Diagnosis SNOMED-CT Code Diagnosis ICD10 Code Diagnosis IMO Codes Diagnosis Note [id number] BENIGNO LO MD [facility] [address] [address] 07/11/2025 13:13:57 07/11/2025 13:53:11 Malignant neoplasm of larynx 475431477 C32.9 Tracheosto my hemorrhage 81562055 J95.01 Health Concerns Section Related Observation LastModified by Organization Detai ls LastModified Time None Recorded Concern Status LastModified by Organization Details LastModified Time None Recorded Payers Encounter Date Sequence Insurance Name Policy Number Policy López Covered Member ID López Member ID Guarantor Name 07/11/2025 1 [place]ARE [place]: [employer] Sanket Little [id number] Sanket Little 07/11/2025 2 [employer] (MEDICARE SUPPLEMENT) Sanket Little [id number] Sanket Little Notes Date Note Type Note Provider Name and Address Organization Details Recorded Time 07/11/2025 text/html Primary tumor location: right supraglottic Tumor staging: T1aN0 SCCA Treatment: Laryngectomy and RT Date of treatment completion: Surgery 09/29/18, RT 12/2003 Oncology team: Beau Samaniego after watchman was converted from coumadin to plavix and ASA. was admitted to [facility] for hemoptysis. identified a pulmonary bleed the [...] chloride solution with relief. BENIGNO LO MD [address] [place] [address], [phone], [place] [facility] 07/11/2025 13:54:10
--- OUTSIDE RECORDS SUMMARY | 2025-07-21 10:37 | XMS_ITS | Data Portability ---
Author Organization [facility] [employer] [facility], Main Office Address [address] [place] [address] Care Team Providers Care Accounts Receivable Processor Name Role Phone [facility] OTHER CAMERON AMAYA Primary Care [...] Recorded Time Primary malignant neoplasm of larynx 093728230 Completed 201811/08/2024 Not Available [facility] 20:03:28 Laryngect chuckie Completed 201811/10/2024 MARTIN VALDES [address], [address], [place], [address] , [facility] 00:42:07 Muscle weakness 06432321 Completed 201811/08/2024 Not Available [facility] 19:54:05 Hyperlipi demia 22843080 Completed 201811/08/2024 Not Available [facility] 19:54:06 Anesthesi a of skin 987206773 Completed 201811/08/2024 Not Available [facility] 19:54:06 Abnormal gait 29841375 Completed 201811/08/2024 Not Available [facility] 19:54:07 Atrial fibrillat ion 91979604 Completed 201811/08/2024 Not Available [facility] 20:04:44 Essential hypertens ion 77655731 Completed 201811/08/2024 MARTIN VALDES [address], [address], [place], [address] , [place] [facility] 5 00:46:05 Chronic obstructi ve pulmonary disease 22415493 Completed 201811/08/2024 Not Available [facility] 20:10:25 Gastroeso phageal reflux disease without esophagit is 787627014 Completed 201811/08/2024 Not Available [facility] 20:11:20 Tracheost chuckie present 967671854 Active 2018 Not Available [facility] 19:54:13 Anemia 319649450 Completed 201811/08/2024 Not Available [facility] 20:05:12 Bleeding from nose 788164221 Completed 201811/08/2024 Not Available [facility] 20:05:43 Low blood pressure 36606723 Completed 201811/08/2024 Not Available [facility] 20:06:44 Abnormal gait 45443448 Completed 201811/08/2024 Not Available [facility] 20:07:09 Dysphagia 94908898 Completed 201811/08/2024 Not Available [facility] 19:54:12 Dysphonia 02124859 Completed 201811/08/2024 Not Available [facility] 20:07:47 Hyperlipi demia 85856436 Completed 201811/08/2024 Not Available [facility] 20:08:20 Anesthesi a of skin 368587904 Completed 201811/08/2024 Not Available [facility] 20:09:20 Muscle weakness 72239183 Completed 201811/08/2024 Not Available [facility] 20:09:53 Anemia 160932289 Active 2024 Not Available [facility] 20:46:43 Atrial fibrillat ion 61745374 Active 2024 Not Available [facility] 20:46:45 Cardiomyo shweta 63952295 Completed 202411/10/2024 MARTIN VALDES [address] , [address], [place], [address] , [facility] 5 00:38:57 Amyloidos is 30389636 Completed 202411/10/2024 MARTIN VALDES [address], [address], [place], [address] , [facility] 5 00:38:35 Implantat ion to cardiovas cular system Completed 202411/10/2024 MARTIN VALDES [address], [place], [address] , [facility] 5 00:38:35 Diastolic heart failure 035623830 Active 2024 Not Available [facility] 20:43:14 Rheumatic tricuspid valve regurgita tion 25073092 Completed 202411/10/2024 MARTIN VALDES [address], [address], [place], [address] , [facility] 5 00:42:07 Hypo-osmo lality and or hyponatre deisi 365965977 Active 2024 Not Available [facility] 5 20:44:30 Implantat ion procedure Completed 202411/10/2024 MARTIN VALDES [address], [place], [address] , [facility] 5 00:38:35 Chronic obstructi ve pulmonary disease 75137404 Active 2024 Not Available [facility] 5 07:30:42 Hemoptysi s 03639781 Completed 202411/10/2024 MARTIN VALDES [address], [place], [address] , [facility] 5 00:38:35 Primary malignant neoplasm of laryngeal cartilage 092915503 Completed 202411/10/2024 2019 MARTIN VALDES [address], [place], [address] , [facility] 5 00:42:07 Alcoholic cirrhosis 154083201 Completed 202411/10/2024 MARTIN VALDES [address], [place], [address] , [facility] 5 00:42:07 Cramp in lower leg associate d with rest 073512272 Completed 202411/10/2024 MARTIN VALDES [address], [place], [address] , [facility] 5 00:38:35 Chronic kidney disease stage 3A 735632314 Active 2024 Not Available [facility] 5 07:36:45 Acute kidney injury 77234613 Completed 202411/10/2024 MARTIN VALDES [address], [place], [address] , [facility] 5 00:38:35 Hyperlipi demia 61666268 Active 2024 Not Available [facility] 5 07:37:17 Atheroscl erosis of coronary artery without angina pectoris 16374438156 4103 Completed 202411/10/2024 MARTIN VALDES [address], [address], [place], [address] , [facility] 5 00:38:35 Gastroeso phageal reflux disease without esophagit is 499324340 Active 2024 Not Available [facility] 5 07:35:09 Heart disease 84982425 Active 2024 MARTIN VALDES [address] [facility] [address], [place], [address] , [facility] Cell>[facility] 5 00:23:37 Essential hypertens ion 74528657 Active 2024 MARTIN VALDES [address], [address], [place], [address] , [facility] [employer] 5 00:46:05 Problem Notes None recorded. Medical Equipment None Reported. Allergies Allergen ID Allergen Name Allergen Category Reaction Reaction Severity Criticality Documentation Date Start Date Code Code System Note Provider Name and Address Organization Details Recorded Time 15500 Venofer medicatio n Not available Not available Not available 11/10/2024 46717 9 RxNorm MARTIN VALDES [address], [address], [place], [address], [facility] [employer] 5 00:54:51 Medications Name Sig Start Date [...] Smoking Status Former Smoker MARTIN VALDES [address], [address], [place], [address], [facility] 11/10/2024 00:52:31 Do You Have An Advance Directive? Yes Information not available 11/10/2024 What Is Your Code Status? Full Code No Dialysis Information not available 11/10/2024 [facility] not available 11/10/2024 What Was The [...] (RSV) MAB, unspecified 4 completed Tico [facility] 11/09/2024 14:39:06 Td(adult) unspecified formulation 2 completed Tico pollack [facility] 11/09/2024 14:39:23 Pneumococcal conjugate PCV 13 3 completed Tico pollack [facility] 11/09/2024 14:39:37 pneumococcal polysaccharide PPV23 9 completed [place] null, [facility] 11/09/2024 14:39:49 influenza, unspecified formulation 0 completed [place]ico [place] null, [facility] 11/09/2024 14:40:04 influenza, unspecified formulation 1 completed Tico [place] null, [facility] 11/09/2024 14:40:08 influenza, unspecified formulation 2 completed Tico [place] null, [facility] 11/09/2024 14:40:13 influenza, unspecified formulation 3 completed Tico [place] null, [facility] 11/09/2024 14:40:17 influenza, unspecified formulation 4 completed Tico [place] null, [facility] 11/09/2024 14:40:22 SARS-COV-2 (COVID-19) vaccine, UNSPECIFIED 1 completed [place]ico [place] null, [facility] 11/09/2024 14:40:37 SARS-COV-2 (COVID-19) vaccine, UNSPECIFIED 1 completed [place]ico [place] null, [facility] 11/09/2024 14:40:41 SARS-COV-2 (COVID-19) vaccine, UNSPECIFIED 1 completed [place] null, [facility] 11/09/2024 14:40:46 SARS-COV-2 (COVID-19) vaccine, UNSPECIFIED 2 completed [place]ico [place] null, [facility] 11/09/2024 14:40:52 SARS-COV-2 (COVID-19) vaccine, UNSPECIFIED 2 completed [place] null, [facility] 11/09/2024 14:41:03 SARS-COV-2 (COVID-19) vaccine, UNSPECIFIED 3 completed [place]ico [place] null, [facility] 11/09/2024 14:41:09 SARS-COV-2 (COVID-19) vaccine, UNSPECIFIED 3 completed [facility], [facility] 11/09/2024 14:41:14 SARS-COV-2 (COVID-19) vaccine, UNSPECIFIED 4 completed [facility], [facility] 11/09/2024 14:41:20 zoster, unspecified formulation 2 completed [facility], [facility] 11/09/2024 14:41:31 zoster, unspecified formulation 3 completed [facility], [facility] 11/09/2024 14:41:37 Past Encounters Encounter ID Performer Location Encounter Start Date Encounter Closed Date Diagnosis/Indication Diagnosis SNOMED-CT Code Diagnosis ICD10 Code Diagnosis IMO Codes Diagnosis Note [id number] MARTIN VALDES [place] [address] [place] [address] 11/09/2024 12:09:33 11/10/2024 15:45:36 Tracheostomy present 769686357 Z93.0 presented to ED with hemoptysis from [...] bleed Chronic ki dney disease stage 3A 606413693 N18.31 acute on chronicabn labs hyponatrem ia and hypokalmia -resolveda void nephrotoxi c medsBaseli ne Cr ~ 1.2.follow up as outpatient Continue Fluid restrictio n,cont lokelmapot assium restricted diet Diastolic heart failure 829996543 I50.30 Echo: LVEF 60 to 65% no regional wall motion abnormalit iesSevere tricuspid regurgitat ion.contin ue torsemide 40 mgfluid rest 1500 ccfollow up 1-2 weeks with cardsConti nue dapagliflo zin 10 mg dailycont to hold Acetazolam nam , HCTZ, and Spironolac tone for now Anemia 454935921 D64.9 S/p 1 unit PRBC 10/23.cont Ferrous Sulfatemon itor labs Heart disease 22379556 I 51.9 hx Amyloidosi s cardiomyop athy,Lisa nue dapagliflo zin, Vyndamax Hypo-osmol ality and or hyponatremia 738915802 E87.1 seen by renal believes it to [...] level Gastroesop hageal reflux disease without esophagitis 359102398 K21.9 continue PPI Chronic back pain 613947 002 M54.9 cont BaclofenLi docaine patch Essential hypertension 23141756 I10 cont terazosinm onitor bp Hyperlipidemia 41450040 E78.5 continue zocor qd Health Concerns Section Related Observation LastModified by Organization Detai ls LastModified Time None Recorded Concern Status LastModified by Organization Details LastModified Time None Recorded Advance Directives Directive Y: Payers Insurance Date Sequence Insurance Name Policy Number Policy López Covered Member ID López Member ID Guarantor Name 11/09/2024 1 [place] [employer] Sanket Little [id number] Sanket Little 11/09/2024 2 A[employer] (MEDICARE SUPPLEMENT) Sanket Little [id number] Sanket Little Notes Date Note Type Note [...] with bleeding from proximal trachea. Admitted to [facility] after acute care stay. Presented to [facility] with massive hemoptysis from his tracheal stoma [...] to ED for evaluation. MARTIN VALDES [address], [address], [place], [address], [facility] 11/10/2024 00:57:32
--- OUTSIDE RECORDS SUMMARY | 2025-08-02 19:00 | XMS_ITS | Clinical Summary ---
Author Organization Unknown Care Team Providers Care Nurse Advisor Name Role Phone MONIQUE WILSON, CAMERON Unavailable Unavailable DELIA JUDDN, NATALIO Unavailable Unavailable MARÍA ADMINISTRATIVE ASSISTANT COORDINATOR, HUSSEIN Unavailable Unavailable HUNTER PT, HORTENCIA Unavailable Unavailable SAMARIA RN, ZACH Unavailable Unavailable Payers Payer Name Policy Type Policy Number Effective Date Expira tion Date MEDICARE - [place] [id number] Problems Condition Name Condition Details Condition Category Status Onset Date Resolution Date Last Treatment Date Treating Clinician Comments UNSP FRACTURE OF SACRUM, SUBS FOR FX W ROUTN HEAL Active 09-07 00:00: 00 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/UNSP CHR KDNY Active 09-07 00:00: 00 UNSPECIFIED DIASTOLIC (CONGESTIVE) HEART FAILURE Active 09-07 00:00: 00 CHRONIC KIDNEY DISEASE, STAGE 3A Active 09-07 00:00: 00 ANEMIA IN CHRONIC KIDNEY DISEASE Active 09-07 00:00: 00 UNSPECIFIED CIRRHOSIS OF LIVER Active 09-07 00:00: 00 CHRONIC ATRIAL FIBRILLATION , UNSPECIFIED Active 09-07 00:00: 00 CARDIOMYOPAT HY IN DISEASES CLASSIFIED ELSEWHERE Active 09-07 00:00: 00 CARDIOMYOPAT HY, UNSPECIFIED Active 09-07 00:00: 00 ATHSCL HEART DISEASE OF [place] CORONARY ARTERY W/O ANG PCTRS Active 09-07 00:00: 00 CERVICALGIA Active 09-07 00:00: 00 HYPERLIPIDEM IA, UNSPECIFIED Active 09-07 00:00: 00 NONRHEUMATIC MITRAL (VALVE) INSUFFICIENC Y Active 09-07 00:00: 00 RHEUMATIC TRICUSPID INSUFFICIENC Y Active 09-07 00:00: 00 PRESENCE OF CARDIAC PACEMAKER Active 09-07 00:00: 00 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 Ordering Clinician Indication Dosage Frequency Signature (SIG) Comments Components nystatin 100,000 unit/mL oral suspension 03-31 00:00: 00 05-29 23:59 :00 No [id number] unit 4 TIMES DAILY [id number] unit 4 TIMES DAILY (route: oral) Med Classific ation: Mouth-Thr oat-Denta l - Preparati ons clotrimazol e 10 mg addison 03-21 00:00: 00 05-18 23:59 :00 No [id number] Per instruc tions 5 TIMES A DAY Per instructio ns 5 TIMES A DAY (route: mucous membrane) Med Classific ation: Mouth-Thr oat-Denta l - Preparati ons Vyndamax 61 mg capsule 03-20 00:00: 00 Yes [id number] 1 capsule EVERY AM 1 capsule EVERY AM (route: oral) Med Classific ation: Endocrine acetaminoph en 500 mg capsule 03-28 00:00: 00 Yes [id number] 2 capsule EVERY 6 HOURS 2 capsule EVERY 6 HOURS (route: oral) Med Classific ation: Analgesic , Anti-infl ammatory or Antipyret ic ascorbic acid (vitamin C) 500 mg tablet 03-28 00:00: 00 Yes [id number] 1 tablet BEDTIME 1 tablet BEDTIME (route: oral) Med Classific ation: Electroly te Balance-N utritiona l Products baclofen 10 mg tablet 03-28 00:00: 00 Yes [id number] 1 tablet BEDTIME 1 tablet BEDTIME (route: oral) Med Classific ation: Locomotor System calcium carbonate 750 mg-simethic one 80 mg chewable tablet 03-28 00:00: 00 Yes [id number] 1 tablet BEDTIME 1 tablet BEDTIME (route: oral) Med Classific ation: Gastroint estinal Therapy Agents docusate sodium 100 mg capsule 03-28 00:00: 00 Yes [id number] 100 mg 2 TIMES DAILY 100 mg 2 TIMES DAILY (route: oral) Med Classific ation: Gastroint estinal Therapy Agents omeprazole 20 mg capsule,del ayed release 03-28 00:00: 00 Yes [id number] 20 mg DAILY 20 mg DAILY (route: oral) Med Classific ation: Gastroint estinal Therapy Agents pantoprazol e 40 mg tablet,bridget yed release 03-28 00:00: 00 05-18 23:59 :00 No [id number] 1 tablet DAILY 1 tablet DAILY (route: oral) Med Classific ation: Gastroint estinal Therapy Agents simvastatin 10 mg tablet 03-28 00:00: 00 Yes [id number] 1 tablet BEDTIME 1 tablet BEDTIME (route: oral) Med Classific ation: Cardiovas cular Therapy Agents spironolact one 50 mg tablet 03-28 00:00: 00 Yes [id number] 2 tablet DAILY 2 tablet DAILY (route: oral) Med Classific ation: Cardiovas cular Therapy Agents terazosin 10 mg capsule 03-28 00:00: 00 Yes [id number] 1 capsule BEDTIME 1 capsule BEDTIME (route: oral) Med Classific ation: Cardiovas cular Therapy Agents thiamine HCl (vitamin B1) 100 mg capsule 03-28 00:00: 00 Yes [id number] 1 capsule BEDTIME 1 capsule BEDTIME (route: oral) Med Classific ation: Electroly te Balance-N utritiona l Products tolvaptan 30 mg tablet 03-28 00:00: 00 Yes [id number] 1 tablet DAILY 1 tablet DAILY (route: oral) Med Classific ation: Cardiovas cular Therapy Agents oxycodone 5 mg tablet 04-27 00:00: 00 05-18 23:59 :00 No [id number] 1 tablet EVERY 6 HOURS 1 tablet EVERY 6 HOURS (route: oral) Med Classific ation: Analgesic , Anti-infl ammatory or Antipyret ic oxycodone 5 mg tablet 8- 00:00: 00 Yes [id number] 1 tablet EVERY 4-6 HOURS NEEDED 1 tablet EVERY 4-6 HOURS NEEDED (route: oral) Med Classific ation: Analgesic , Anti-infl ammatory or Antipyret ic Jardiance 10 mg tablet 4-01 00:00: 00 Yes [id number] 1 tablet DAILY 1 tablet DAILY (route: oral) Med Classific ation: Endocrine Miralax 17 gram/dose oral powder 2-03 00:00: 00 Yes [id number] 17 gram 2 TIMES DAILY 17 gram 2 TIMES DAILY (route: oral) Med Classific ation: Gastroint estinal Therapy Agents torsemide 20 mg tablet 7-02 00:00: 00 Yes [id number] 1 tablet DAILY 1 tablet DAILY (route: oral) Med Classific ation: Cardiovas cular Therapy Agents tramadol 50 mg tablet - 00:00: 00 Yes [id number] 1 tablet EVERY 6 HOURS 1 tablet EVERY 6 HOURS (route: oral) Med Classific ation: Analgesic , Anti-infl ammatory or Antipyret ic Immunizations Ordered Immunization Name Filled Immunization Name Date Status Comments Refusal Reason INFLUENZA, TIV (INACTIVATED) 2024-06-29 00:00:00 COVID-19, COVID-19 2022-04-30 00:00:00 PNEUMOCOCCAL (PPV), PPV 2021-03-26 00:00:00 SHINGLES, TIV (INACTIVATED) 2021-03-20 00:00:00 Vital Signs Vital Name Observation Time Observation Value Commen ts Temperature 2025-07-05 15:10:00.000 98.6 [degF] Temperature 2025-06-29 13:00:00.000 97.3 [degF] Temperature 2025-06-28 15:26:00.000 98.6 [degF] Temperature 2025-06-22 11:49:00.000 98 [degF] Temperature 2025-06-21 15:25:00.000 98.3 [degF] Temperature 2025-06-15 12:29:00.000 97.8 [degF] Temperature 2025-06-14 15:41:00.000 98.4 [degF] Temperature 2025-06-07 15:39:00.000 98.6 [degF] Pulse 2025-07-05 15:10:00.000 68 /min Pulse 2025-06-29 13:00:00.000 70 /min Pulse 2025-06-28 15:26:00.000 68 /min Pulse 2025-06-22 11:49:00.000 62 /min Pulse 2025-06-21 15:25:00.000 60 /min Pulse 2025-06-15 12:29:00.000 60 /min Pulse 2025-06-14 15:41:00.000 79 /min Pulse 2025-06-07 15:39:00.000 63 /min O2 Saturation (%) 2025-07-05 15:10:00.000 99 % O2 Saturation (%) 2025-06-29 13:00:00.000 97 % O2 Saturation (%) 2025-06-28 15:26:00.000 99 % O2 Saturation (%) 2025-06-22 11:49:00.000 98 % O2 Saturation (%) 2025-06-21 15:25:00.000 99 % O2 Saturation (%) 2025-06-15 12:29:00.000 96 % O2 Saturation (%) 2025-06-14 15:41:00.000 98 % O2 Saturation (%) 2025-06-07 15:39:00.000 99 % Respirations 2025-07-05 15:10:00.000 16 /min Respirations 2025-06-29 13:00:00.000 16 /min Respirations 2025-06-28 15:26:00.000 16 /min Respirations 2025-06-22 11:49:00.000 18 /min Respirations 2025-06-21 15:25:00.000 16 /min Respirations 2025-06-15 12:29:00.000 18 /min Respirations 2025-06-14 15:41:00.000 16 /min Respirations 2025-06-07 15:39:00.000 16 /min Weight (lbs) 2025-06-29 13:00:00.000 142 [lb_av] Weight (lbs) 2025-06-22 11:49:00.000 138 [lb_av] Weight (lbs) 2025-06-15 12:29:00.000 141 [lb_av] Systolic Blood Pressure 2025-07-05 15:10:00.000 132 mm [Hg] Systolic Blood Pressure 2025-06-29 13:00:00.000 132 mm [Hg] Systolic Blood Pressure 2025-06-28 15:26:00.000 132 mm [Hg] Systolic Blood Pressure 2025-06-22 11:49:00.000 115 mm [Hg] Systolic Blood Pressure 2025-06-21 15:25:00.000 132 mm [Hg] Systolic Blood Pressure 2025-06-15 12:29:00.000 122 mm [Hg] Systolic Blood Pressure 2025-06-14 15:41:00.000 144 mm [Hg] Systolic Blood Pressure 2025-06-07 15:39:00.000 144 mm [Hg] Diastolic Blood Pressure 2025-07-05 15:10:00.000 74 mm [Hg] Diastolic Blood Pressure 2025-06-29 13:00:00.000 58 mm [Hg] Diastolic Blood Pressure 2025-06-28 15:26:00.000 64 mm [Hg] Diastolic Blood Pressure 2025-06-22 11:49:00.000 58 mm [Hg] Diastolic Blood Pressure 2025-06-21 15:25:00.000 66 mm [Hg] Diastolic Blood Pressure 2025-06-15 12:29:00.000 56 mm [Hg] Diastolic Blood Pressure 2025-06-14 15:41:00.000 78 mm [Hg] Diastolic Blood Pressure 2025-06-07 15:39:00.000 76 mm [Hg] Plan of Treatment Planned Activity Planned Date Details Comments Future Scheduled Test SKILLED NU RSE TO EVALUATE PATIENT, IDENTIFY PRIMARY AND CO-MORBID CONDITIONS CODED PER CODING GUIDELINES, AND DEVELOP PATIENT SPECIFIC PLAN OF CARE THAT INCLUDES PATIENT GOAL FOR HOME HEALTH. [code = SKILLED NURSE TO EVALUATE PATIENT, IDENTIFY PRIMARY AND CO-MORBID CONDITIONS CODED PER CODING GUIDELINES, AND DEVELOP PATIENT SPECIFIC PLAN OF CARE THAT INCLUDES PATIENT GOAL FOR HOME HEALTH.] Future Scheduled Test SKILLED NU RSE FOR INSTRUCTION/ REINFORCEMENT OF NEEDS RELATED TO NUTRITION/HYDRATION. [code = SKILLED NURSE FOR INSTRUCTION/ REINFORCEMENT OF NEEDS RELATED TO NUTRITION/HYDRATION.] Future Scheduled Test SKILLED NU RSE FOR O/A, TEACHING, AND MANAGEMENT OF CARDIOMYOPATHY, CAD, HLD [code = SKILLED NURSE FOR O/A, TEACHING, AND MANAGEMENT OF CARDIOMYOPATHY, CAD, HLD] Future Scheduled Test SKILLED NU RSE FOR O/A, TEACHING AND MANAGEMENT OF CKD FOR EARLY IDENTIFICATION OF EXACERBATION OF DISEASE PROCESS [code = SKILLED NURSE FOR O/A, TEACHING AND MANAGEMENT OF CKD FOR EARLY IDENTIFICATION OF EXACERBATION OF DISEASE PROCESS] Future Scheduled Test SKILLED NU RSE FOR O/A AND SKILLED TEACHING RELATED TO SIGNS AND SYMPTOMS OF INFECTION AND INFECTION CONTROL MEASURES. [code = SKILLED NURSE FOR O/A AND SKILLED TEACHING RELATED TO SIGNS AND SYMPTOMS OF INFECTION AND INFECTION CONTROL MEASURES.] Future Scheduled Test PHYSICAL T HERAPIST TO EVALUATE PATIENT FOR PHYSICAL DECONDITIONING [code = PHYSICAL THERAPIST TO EVALUATE PATIENT FOR PHYSICAL DECONDITIONING] Future Scheduled Test SKILLED NU RSE TO INSTRUCT PATIENT/CAREGIVER ON SIGNS AND SYMPTOMS, RISK FACTORS, COMPLICATIONS, AND MANAGEMENT OF ATRIAL FIBRILLATION. [code = SKILLED NURSE TO INSTRUCT PATIENT/CAREGIVER ON SIGNS AND SYMPTOMS, RISK FACTORS, COMPLICATIONS, AND MANAGEMENT OF ATRIAL FIBRILLATION.] Future Scheduled Test SKILLED NU RSE TO PROVIDE TEACHING ON SIGNS AND SYMPTOMS AND MANAGEMENT OF HYPERTENSION. [code = SKILLED NURSE TO PROVIDE TEACHING ON SIGNS AND SYMPTOMS AND MANAGEMENT OF HYPERTENSION.] Future Scheduled Test SKILLED NU RSE FOR O/A, TEACHING AND SELF-MANAGEMENT RELATED TO HEART FAILURE. INSTRUCT PATIENT/CAREGIVER ON SIGNS AND SYMPTOMS OF EXACERBATION TO REPORT AND IMPORTANCE OF OBTAINING AND RECORDING DAILY WEIGHT AND/OR MEASUREMENTS. SN OR TRAINED PATIENT/CAREGIVER TO OBTAIN WEIGHT DAILY AND WEIGHT GAIN OF 2 LBS OVERNIGHT OR 5 LBS IN 1 WEEK TO BE REPORTED TO PHYSICIAN/PROVIDER. IF UNABLE TO WEIGH PATIENT, SN OR TRAINED PATIENT/CAREGIVER TO OBTAIN MEASUREMENT OF BILATERAL ANKLESIN CM DAILY AND REPORT AN INCREASE OF 2 CM TO PHYSICIAN/PROVIDER. [code = SKILLED NURSE FOR O/A, TEACHING AND SELF-MANAGEMENT RELATED TO HEART FAILURE. INSTRUCT PATIENT/CAREGIVER ON SIGNS AND SYMPTOMS OF EXACERBATION TO REPORT AND IMPORTANCE OF OBTAINING AND RECORDING DAILY WEIGHT AND/OR MEASUREMENTS. SN OR TRAINED PATIENT/CAREGIVER TO OBTAIN WEIGHT DAILY AND WEIGHT GAIN OF 2 LBS OVERNIGHT OR 5 LBS IN 1 WEEK TO BE REPORTED TO PHYSICIAN/PROVIDER. IF UNABLE TO WEIGH PATIENT, SN OR TRAINED PATIENT/CAREGIVER TO OBTAIN MEASUREMENT OF BILATERAL ANKLESIN CM DAILY AND REPORT AN INCREASE OF 2 CM TO PHYSICIAN/PROVIDER.] Future Scheduled Test SKILLED NU RSE FOR O/A AND SKILLED TEACHING RELATED TO SIGNS AND SYMPTOMS AND MANAGEMENT OF ANEMIA. [code = SKILLED NURSE FOR O/A AND SKILLED TEACHING RELATED TO SIGNS AND SYMPTOMS AND MANAGEMENT OF ANEMIA.] Future Scheduled Test SKILLED NU RSE FOR O/A AND SKILLED TEACHING RELATED TO SIGNS AND SYMPTOMS AND MANAGEMENT OF FRACRURE OF SACRUM [code = SKILLED NURSE FOR O/A AND SKILLED TEACHING RELATED TO SIGNS AND SYMPTOMS AND MANAGEMENT OF FRACRURE OF SACRUM] Future Scheduled Test [facility] V[facility]ITS MAY BE PERFORMED UTILIZING TELECOMMUNICATIONS SYSTEM TO OPTIMIZE SKILLED SERVICES FURNISHED ON THE PLAN OF CARE. SKILLED NURSE TO ESTABLISH SUPPORT MEASURES TO MINIMIZE RISK OF REHOSPITALIZATION, AND INSTRUCT PATIENT/CAREGIVER ON METHODS TO REDUCE AVOIDABLE HOSPITALIZATION. [code = PRN VIRTUAL VISITS MAY BE PERFORMED UTILIZING TELECOMMUNICATIONS SYSTEM TO OPTIMIZE SKILLED SERVICES FURNISHED ON THE PLAN OF CARE. SKILLED NURSE TO ESTABLISH SUPPORT MEASURES TO MINIMIZE RISK OF REHOSPITALIZATION, AND INSTRUCT PATIENT/CAREGIVER ON METHODS TO REDUCE AVOIDABLE HOSPITALIZATION.] Future Scheduled Test PATIENT MARTINEZ S A RISK OF HOSPITALIZATION AND ED USE. SKILLED NURSE TO ESTABLISH SUPPORT MEASURES TO MINIMIZE RISK OF HOSPITALIZATION AND ED USE, AND INSTRUCT PATIENT/CAREGIVER ON METHODS TO REDUCE AVOIDABLE HOSPITALIZATION AND ED USE. [code = PATIENT HAS A RISK OF HOSPITALIZATION AND ED USE. SKILLED NURSE TO ESTABLISH SUPPORT MEASURES TO MINIMIZE RISK OF HOSPITALIZATION AND ED USE, AND INSTRUCT PATIENT/CAREGIVER ON METHODS TO REDUCE AVOIDABLE HOSPITALIZATION AND ED USE.] Future Scheduled Test SKILLED NU RSE TO PROVIDE INSTRUCTION TO PATIENT/CAREGIVER RELATED TO DISCHARGE PLANNING. [code = SKILLED NURSE TO PROVIDE INSTRUCTION TO PATIENT/CAREGIVER RELATED TO DISCHARGE PLANNING.] Future Scheduled Test SKILLED NU RSE TO PERFORM ENVIRONMENTAL SAFETY RISK ASSESSMENT AND FALL RISK ASSESSMENT AND PROVIDE INSTRUCTION TO IMPLEMENT ENVIRONMENTAL SAFETY AND FALL PREVENTION STRATEGIES THROUGHOUT THE CERTIFICATION PERIOD. SKILLED NURSE WILL MAINTAIN SITUATIONAL AWARENESS AND WILL NOTIFY CLINICAL FORENSIC SCIENCE EXAMINER AND PHYSICIAN/PROVIDER WITH ANY CHANGE IN CONDITION. [code = SKILLED NURSE TO PERFORM ENVIRONMENTAL SAFETY RISK ASSESSMENT AND FALL RISK ASSESSMENT AND PROVIDE INSTRUCTION TO IMPLEMENT ENVIRONMENTAL SAFETY AND FALL PREVENTION STRATEGIES THROUGHOUT THE CERTIFICATION PERIOD. SKILLED NURSE WILL MAINTAIN SITUATIONAL AWARENESS AND WILL NOTIFY CLINICAL FORENSIC SCIENCE EXAMINER AND PHYSICIAN/PROVIDER WITH ANY CHANGE IN CONDITION.] Future Scheduled Test SKILLED NU RSE FOR OBSERVATION AND ASSESSMENT OF PATIENT S PAIN LEVEL AND EFFECTIVENESS OF PAIN MANAGEMENT REGIMEN. SKILLED NURSE TO INSTRUCT PATIENT/CAREGIVER REGARDING PHARMACOLOGIC AND NON-PHARMACOLOGIC PAIN CONTROL MEASURES. SKILLED NURSE TO REPORT TO PHYSICIAN IF PAIN LEVEL IS OUTSIDE OF ESTABLISHED PARAMETERS. [code = SKILLED NURSE FOR OBSERVATION AND ASSESSMENT OF PATIENT S PAIN LEVEL AND EFFECTIVENESS OF PAIN MANAGEMENT REGIMEN. SKILLED NURSE TO INSTRUCT PATIENT/CAREGIVER REGARDING PHARMACOLOGIC AND NON-PHARMACOLOGIC PAIN CONTROL MEASURES. SKILLED NURSE TO REPORT TO PHYSICIAN IF PAIN LEVEL IS OUTSIDE OF ESTABLISHED PARAMETERS.] Future Scheduled Test SKILLED NU RSE TO ASSESS PATIENT'S SKIN INTEGRITY AND INSTRUCT PATIENT/CAREGIVER ON MEASURES TO PREVENT PRESSURE ULCERS. [code = SKILLED NURSE TO ASSESS PATIENT'S SKIN INTEGRITY AND INSTRUCT PATIENT/CAREGIVER ON MEASURES TO PREVENT PRESSURE ULCERS.] Future Scheduled Test SKILLED NU RSE TO REVIEW PATIENT MEDICATIONS (PRESCRIPTION/OTC). INSTRUCT PATIENT/CAREGIVER ON ALL MEDICATIONS INCLUDING PURPOSE, WHEN TO TAKE, IMPORTANCE OF MEDICATION ADHERENCE, MONITORING OF EFFECTIVENESS, ADVERSE DRUG REACTIONS, POSSIBLE SIDE EFFECTS, AND WHEN TO NOTIFY AGENCY OR PHYSICIAN/PROVIDER OF ANY CONCERNS. [code = SKILLED NURSE TO REVIEW PATIENT MEDICATIONS (PRESCRIPTION/OTC). INSTRUCT PATIENT/CAREGIVER ON ALL MEDICATIONS INCLUDING PURPOSE, WHEN TO TAKE, IMPORTANCE OF MEDICATION ADHERENCE, MONITORING OF EFFECTIVENESS, ADVERSE DRUG REACTIONS, POSSIBLE SIDE EFFECTS, AND WHEN TO NOTIFY AGENCY OR PHYSICIAN/PROVIDER OF ANY CONCERNS.] Future Scheduled Test PHYSICAL T HERAPIST TO EVALUATE PATIENT SECONDARY TO FUNCTIONAL DEFICITS/SAFETY CONCERNS. PHYSICAL THERAPIST TO ASSESS BEST PRACTICE INTERVENTIONS TO ASSIST PATIENTS TO IMPROVE OR STABILIZE MEDICAL STATUS AND PREVENT RE-HOSPITALIZATION. MEASURES INCLUDING REVIEW AND IDENTIFICATION OF CONCERNS FOR THE FOLLOWING AREAS: PAIN, AND DISEASE MANAGEMENT. PHYSICAL THERAPY TO ESTABLISH /UPGRADE/DOWNGRADE THERAPEUTIC EXERCISE PROGRAM AND INSTRUCT PATIENT/CAREGIVER ON EXERCISE PRECAUTIONS WITH WRITTEN HOME PROGRAM. MAY INCLUDE PROM, AAROM, AROM, RROM APPROPRIATE TO IMPROVE FUNCTIONAL STRENGTH AND RANGE OF MOTION. PHYSICAL THERAPY TO INSTRUCT PATIENT/CAREGIVER ON BED MOBILITY TECHNIQUES TO IMPROVE PATIENT MOBILITY AND POSITIONING TECHNIQUES IN ORDER TO INCREASE PATIENT S COMFORT AND DECREASE RISK OF SKIN BREAKDOWN. PHYSICAL THERAPY TO INSTRUCT PATIENT/CAREGIVER ON SAFE TRANSFER TECHNIQUES USING PROPER BODY MECHANICS AND EQUIPMENT. PHYSICAL THERAPY TO INSTRUCT PATIENT/CAREGIVER ON GAIT TRAINING TECHNIQUES USING APPROPRIATE ASSISTIVE DEVICE, PROPER BODY MECHANICS TO IMPROVE MOBILITY, AND PREVENT INJURY OF PATIENT AND/OR CAREGIVER. PHYSICAL THERAPY TO ASSESS AND RECOMMEND HOME SAFETY ADAPTATIONS AND EDUCATE PATIENT /CAREGIVER ON FALL PREVENTION STRATEGIES. PHYSICAL THERAPY FOR OBSERVATION AND ASSESSMENT OF PAIN, EFFECTIVENESS OF PAIN MANAGEMENT REGIMEN AND SKILLED TEACHING RELATED TO PAIN MANAGEMENT. THERAPIST TO REPORT INCREASED PAIN LEVEL TO PHYSICIAN FOR PROMPT INTERVENTION. PHYSICAL THERAPY TO INSTRUCT PATIENT/CAREGIVER ON BALANCE AND BALANCE STRATEGIES TO IMPROVE SAFE MOBILITY AND REDUCE RISK FOR FALL AND INJURY SUMMARY OF THERAPY EVAL/ASSESSMENT FINDINGS AND REASON(S) SKILLS OF A THERAPIST ARE INDICATED: 06/07: PATIENT IS A 75-YEAR-OLD MALE WITH HISTORY OF LARYNGEAL CANCER STATUS POST RESECTION USES VOICEBOX AT BASELINE, STATUS POST PPM, MITRAL VALVE REGURGE, AFIB, ANEMIA, CHF, ANOREXIA, LIVER CIRRHOSIS, PRESENTS REFERRAL FOR HOME PT SERVICES STATUS POST MULTILEVEL KYPHOPLASTY FOR GROUND LEVEL FALL SUSTAINED AT HOME RESULTING IN MULTIPLE SACRAL FRACTURES. PATIENT REQUIRES HOME PT SERVICES IN ORDER TO MAXIMIZE CURRENT LEVEL OF FUNCTION INDEPENDENCE TO ALLOW PATIENT TO SAFELY ACCESS AND NAVIGATE HIS HOME ENVIRONMENT HE CURRENTLY DEMONSTRATES INCREASED FALL RISK EVIDENCED BY TINETTI SCORE LESS THAN 19/30, 30 SECOND [id number] SCORE LESS THAN 6, AND DEMONSTRATES IMPAIRED ABILITY TO AMBULATE HOUSEHOLD DISTANCES EVIDENCED BY TUG SCORE GREATER THAN 30 SECONDS, HEP ESTABLISHED WITH PATIENT TO INCLUDE ABDOMINAL BRACING PERFORMED IN SUPINE, UTILIZING LOG ROLLING TECHNIQUES LEFT AND RIGHT SIDES WITH ABDOMINAL BRACING WITH EMPHASIS ON SPINE PRECAUTIONS, AND PARTIAL [id number] TRANSFER TRAINING PERFORMED WITH EMPHASIS ON HIP HINGING/MINIMIZING BENDING/LIFTING/TWISTING FOR MAINTAINING COMFORT, PATIENT HAS NO FORMAL SPINE PRECAUTIONS HOWEVER WILL BENEFIT FROM EDUCATION ON SPINE PRECAUTIONS FOR PAIN MANAGEMENT. PATIENT ABLE TO IMPROVE PAIN LEVELS FROM 9/10 DECREASED TO 6/10 BY END OF VISIT. 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 PATIENT WOULD LIKELY BENEFIT FROM PAIN MANAGEMENT CONSULT PAIN LEVELS WILL LIKELY BECOME BARRIER TO PT. AWAITING CALL BACK FROM MD OFFICE FOR VERBAL ORDER FOR PT PLAN OF CARE AND FOR PAIN MANAGEMENT CONSULT THERAPIST TO REVIEW PATIENT MEDICATIONS (PRESCRIPTION/OTC). INSTRUCT PATIENT/CAREGIVER ON ALL MEDICATIONS INCLUDING PURPOSE, WHEN TO TAKE, IMPORTANCE OF MEDICATION ADHERENCE, MONITORING OF EFFECTIVENESS, ADVERSE DRUG EVENTS, POSSIBLE SIDE EFFECTS, AND WHEN TO NOTIFY AGENCY OR PHYSICIAN/PROVIDER OF ANY CONCERNS. THERAPIST TO PROVIDE FUNCTIONAL STRATEGIES/TECHNIQUES FOR MANAGING MEDICATIONS. [code = PHYSICAL THERAPIST TO EVALUATE PATIENT SECONDARY TO FUNCTIONAL DEFICITS/SAFETY CONCERNS. PHYSICAL THERAPIST TO ASSESS BEST PRACTICE INTERVENTIONS TO ASSIST PATIENTS TO IMPROVE OR STABILIZE MEDICAL STATUS AND PREVENT RE-HOSPITALIZATION. MEASURES INCLUDING REVIEW AND IDENTIFICATION OF CONCERNS FOR THE FOLLOWING AREAS: PAIN, AND DISEASE MANAGEMENT. PHYSICAL THERAPY TO ESTABLISH /UPGRADE/DOWNGRADE THERAPEUTIC EXERCISE PROGRAM AND INSTRUCT PATIENT/CAREGIVER ON EXERCISE PRECAUTIONS WITH WRITTEN HOME PROGRAM. MAY INCLUDE PROM, AAROM, AROM, RROM APPROPRIATE TO IMPROVE FUNCTIONAL STRENGTH AND RANGE OF MOTION. PHYSICAL THERAPY TO INSTRUCT PATIENT/CAREGIVER ON BED MOBILITY TECHNIQUES TO IMPROVE PATIENT MOBILITY AND POSITIONING TECHNIQUES IN ORDER TO INCREASE PATIENT S COMFORT AND DECREASE RISK OF SKIN BREAKDOWN. PHYSICAL THERAPY TO INSTRUCT PATIENT/CAREGIVER ON SAFE TRANSFER TECHNIQUES USING PROPER BODY MECHANICS AND EQUIPMENT. PHYSICAL THERAPY TO INSTRUCT PATIENT/CAREGIVER ON GAIT TRAINING TECHNIQUES USING APPROPRIATE ASSISTIVE DEVICE, PROPER BODY MECHANICS TO IMPROVE MOBILITY, AND PREVENT INJURY OF PATIENT AND/OR CAREGIVER. PHYSICAL THERAPY TO ASSESS AND RECOMMEND HOME SAFETY ADAPTATIONS AND EDUCATE PATIENT /CAREGIVER ON FALL PREVENTION STRATEGIES. PHYSICAL THERAPY FOR OBSERVATION AND ASSESSMENT OF PAIN, EFFECTIVENESS OF PAIN MANAGEMENT REGIMEN AND SKILLED TEACHING RELATED TO PAIN MANAGEMENT. THERAPIST TO REPORT INCREASED PAIN LEVEL TO PHYSICIAN FOR PROMPT INTERVENTION. PHYSICAL THERAPY TO INSTRUCT PATIENT/CAREGIVER ON BALANCE AND BALANCE STRATEGIES TO IMPROVE SAFE MOBILITY AND REDUCE RISK FOR FALL AND INJURY SUMMARY OF THERAPY EVAL/ASSESSMENT FINDINGS AND REASON(S) SKILLS OF A THERAPIST ARE INDICATED: 06/07: PATIENT IS A 75-YEAR-OLD MALE WITH HISTORY OF LARYNGEAL CANCER STATUS POST RESECTION USES VOICEBOX AT BASELINE, STATUS POST PPM, MITRAL VALVE REGURGE, AFIB, ANEMIA, CHF, ANOREXIA, LIVER CIRRHOSIS, PRESENTS REFERRAL FOR HOME PT SERVICES STATUS POST MULTILEVEL KYPHOPLASTY FOR GROUND LEVEL FALL SUSTAINED AT HOME RESULTING IN MULTIPLE SACRAL FRACTURES. PATIENT REQUIRES HOME PT SERVICES IN ORDER TO MAXIMIZE CURRENT LEVEL OF FUNCTION INDEPENDENCE TO ALLOW PATIENT TO SAFELY ACCESS AND NAVIGATE HIS HOME ENVIRONMENT HE CURRENTLY DEMONSTRATES INCREASED FALL RISK EVIDENCED BY TINETTI SCORE LESS THAN 19/30, 30 SECOND [id number] SCORE LESS THAN 6, AND DEMONSTRATES IMPAIRED ABILITY TO AMBULATE HOUSEHOLD DISTANCES EVIDENCED BY TUG SCORE GREATER THAN 30 SECONDS, HEP ESTABLISHED WITH PATIENT TO INCLUDE ABDOMINAL BRACING PERFORMED IN SUPINE, UTILIZING LOG ROLLING TECHNIQUES LEFT AND RIGHT SIDES WITH ABDOMINAL BRACING WITH EMPHASIS ON SPINE PRECAUTIONS, AND PARTIAL [id number] TRANSFER TRAINING PERFORMED WITH EMPHASIS ON HIP HINGING/MINIMIZING BENDING/LIFTING/TWISTING FOR MAINTAINING COMFORT, PATIENT HAS NO FORMAL SPINE PRECAUTIONS HOWEVER WILL BENEFIT FROM EDUCATION ON SPINE PRECAUTIONS FOR PAIN MANAGEMENT. PATIENT ABLE TO IMPROVE PAIN LEVELS FROM 9/10 DECREASED TO 6/10 BY END OF VISIT. 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 PATIENT WOULD LIKELY BENEFIT FROM PAIN MANAGEMENT CONSULT PAIN LEVELS WILL LIKELY BECOME BARRIER TO PT. AWAITING CALL BACK FROM MD OFFICE FOR VERBAL ORDER FOR PT PLAN OF CARE AND FOR PAIN MANAGEMENT CONSULT THERAPIST TO REVIEW PATIENT MEDICATIONS (PRESCRIPTION/OTC). INSTRUCT PATIENT/CAREGIVER ON ALL MEDICATIONS INCLUDING PURPOSE, WHEN TO TAKE, IMPORTANCE OF MEDICATION ADHERENCE, MONITORING OF EFFECTIVENESS, ADVERSE DRUG EVENTS, POSSIBLE SIDE EFFECTS, AND WHEN TO NOTIFY AGENCY OR PHYSICIAN/PROVIDER OF ANY CONCERNS. THERAPIST TO PROVIDE FUNCTIONAL STRATEGIES/TECHNIQUES FOR MANAGING MEDICATIONS.] Goal 2025-06-01 Patient Goal - T O GET RID OF MY BACK PAIN SO I CAN PLAY GOLF AGAIN Goal Patient Goal - T O GET RID OF MY BACK PAIN SO I CAN PLAY GOLF AGAIN Goal Provider Goal - A PLAN OF CARE WILL BE ESTABLISHED THAT MEETS PATIENT'S [facility] NEEDS AND INCLUDES PATIENT GOAL FOR HOME HEALTH. Goal Provider Goal - PATIENT/CAREGIVER WILL DEMONSTRATE ABILITY TO SELF MANAGE NEEDS RELATED TO NUTRITION/HYDRATION THROUGHOUT THE EPISODE. Goal Provider Goal - PATIENT/CAREGIVER WILL VERBALIZE/DEMONSTRATE MANAGEMENT OF CARDIAC DISEASE PROCESS AND EXACERBATIONS WILL BE IDENTIFIED AND PROMPTLY REPORTED THROUGHOUT THE CERTIFICATION PERIOD. Goal Provider Goal - PATIENT/CAREGIVER WILL VERBALIZE UNDERSTANDING OF GENITOURINARY DISEASE PROCESS, AND EXACERBATIONS OF GENITOURINARY DISEASE WILL BE PROMPTLY IDENTIFIED FOR EARLY INTERVENTION THROUGHOUT THE CERTIFICATION PERIOD. Goal Provider Goal - PATIENT/CAREGIVER WILL VERBALIZE/DEMONSTRATE UNDERSTANDING OF S/S OF INFECTION AND INFECTION CONTROL MEASURES. SIGNS AND SYMPTOMS OF INFECTION WILL BE IDENTIFIED AND PHYSICIAN NOTIFIED FOR PROMPT INTERVENTION THROUGHOUT THE CERTIFICATION PERIOD. Goal Provider Goal - A PHYSICAL THERAPY EVALUATION TO BE COMPLETED WITH RECOMMENDATIONS AND/OR WRITTEN PLAN OF TREATMENT ESTABLISHED FOR PHYSICIAN S SIGNATURE. Goal Provider Goal - PATIENT/CAREGIVER WILL VERBALIZE UNDERSTANDING OF SIGNS AND SYMPTOMS, COMPLICATIONS, AND MANAGEMENT OF ATRIAL FIBRILLATION THROUGHOUT THE CERTIFICATION PERIOD. Goal Provider Goal - PATIENT/CAREGIVER WILL VERBALIZE SIGNS AND SYMPTOMS OF HYPERTENSION AND WILL BE ABLE TO DEMONSTRATE ABILITY TO MANAGE EXACERBATION BY END OF THE EPISODE. Goal Provider Goal - PATIENT/CAREGIVER WILL VERBALIZE/DEMONSTRATE KNOWLEDGE AND MANAGEMENT OF HEART FAILURE DISEASE PROCESS BY END OF EPISODE. Goal Provider Goal - PATIENT/CARGIVER WILL VERBALIZE UNDERSTANDING OF ANEMIA INCLUDING SIGNS AND SYMPTOMS, MANAGEMENT OF COMPLICATIONS, AND PRESCRIBED TREATMENT REGIMEN BY END OF EPISODE. Goal Provider Goal - PATIENT/CAREGIVER WILL VERBALIZE UNDERSTANDING OF FRACTURE OF SACRUM MUSCULOSKELETAL DISEASE INCLUDING SIGNS AND SYMPTOMS, MANAGEMENT, AND PRESCRIBED TREATMENT REGIMEN BY END OF EPISODE. Goal Provider Goal - PATIENT/CAREGIVER WILL UTILIZE VIRTUAL VISITS TO ACHIEVE GOALS OUTLINED ON THE PLAN OF CARE. PATIENT WILL HAVE SUPPORT MEASURES ESTABLISHED TO PREVENT HOSPITALIZATION AND PATIENT/CAREGIVER WILL VERBALIZE/DEMONSTRATE METHODS TO REDUCE AVOIDABLE HOSPITALIZATION THROUGHOUT THE CERTIFICATION PERIOD. Goal Provider Goal - PATIENT WILL HAVE SUPPORT MEASURES ESTABLISHED TO PREVENT HOSPITALIZATION AND ED USE AND PATIENT/CAREGIVER WILL VERBALIZE/DEMONSTRATE METHODS TO REDUCE AVOIDABLE HOSPITALIZATION AND ED USE BY END OF EPISODE. Goal Provider Goal - PATIENT/CAREGIVER WILL VERBALIZE UNDERSTANDING OF DISCHARGE PLANNING INSTRUCTIONS BY DATE OF DISCHARGE. Goal Provider Goal - PATIENT/CAREGIVER WILL VERBALIZE/DEMONSTRATE EFFECTIVE ENVIRONMENTAL SAFETY AND FALL PREVENTION STRATEGIES, WILL REMAIN SAFE IN THE COMMUNITY, AND WILL BE FREE OF DANGER TO SELF AND OTHERS THROUGHOUT THE CERTIFICATION PERIOD. Goal Provider Goal - PATIENT/CAREGIVER WILL DEMONSTRATE UNDERSTANDING OF PHARMACOLOGIC AND NONPHARMACOLOGIC PAIN CONTROL MEASURES AND PATIENT WILL HAVE IMPROVEMENT IN PAIN INTERFERING WITH ACTIVITY EVIDENCED BY PAIN AT A LEVEL THAT IS ACCEPTABLE TO THE PATIENT AND PAIN LEVEL WITHIN ESTABLISHED PARAMETERS BY END OF CERTIFICATION PERIOD. Goal Provider Goal - PATIENT/CAREGIVER WILL VERBALIZE UNDERSTANDING OF PRESSURE ULCER PREVENTION BY END OF THE EPISODE. Goal Provider Goal - PATIENT/CAREGIVER WILL VERBALIZE UNDERSTANDING OF EDUCATION PROVIDED ON MEDICATIONS BY THE END OF THE CERTIFICATION PERIOD. Goal Provider Goal - PHYSICAL THERAPY EVALUATION TO BE COMPLETED WITH RECOMMENDATIONS AND/OR WRITTEN TREATMENT PLAN OF CARE ESTABLISHED FOR THE PHYSICIAN S SIGNATURE PATIENT/CAREGIVER VERBALIZES UNDERSTANDING OF THE INITIAL BEST PRACTICE RECOMMENDATIONS. PHYSICIAN TO BE NOTIFIED APPROPRIATE FOR ANY CHANGES OR COMPLICATIONS THROUGHOUT THE CERTIFICATION PERIOD. PATIENT/CAREGIVER WILL PERFORM THERAPEUTIC EXERCISE/S AND DEMONSTRATE PARTICIPATION IN A HOME PROGRAM. PATIENT/CAREGIVER WILL DEMONSTRATE IMPROVED BED MOBILITY TECHNIQUES. PATIENT/CAREGIVER WILL DEMONSTRATE SAFE TRANSFERS USING APPROPRIATE ASSISTIVE DEVICE, BODY MECHANICS AND EQUIPMENT. PATIENT/CAREGIVER WILL DEMONSTRATE IMPROVED GAIT TECHNIQUES TO MINIMIZE RISK OF INJURY. PATIENT/CAREGIVER WILL DEMONSTRATE/VERBALIZE UNDERSTANDING OF RECOMMENDATIONS TO INCREASE SAFETY IN THE HOME AND FALL PREVENTION. INCREASED PAIN OR INEFFECTIVE PAIN CONTROL MEASURES WILL BE IDENTIFIED AND PROMPTLY REPORTED TO THE PHYSICIAN. PATIENT/CAREGIVER WILL DEMONSTRATE EFFECTIVE PAIN MANAGEMENT. PATIENT/CAREGIVER WILL DEMONSTRATE IMPROVED BALANCE AND REDUCE THE RISK OF FALLS AND INJURY. PATIENT/CAREGIVER WILL VERBALIZE/DEMONSTRATE UNDERSTANDING OF MEDICATIONS AND STRATEGIES/TECHNIQUES FOR MEDICATION MANAGEMENT BY THE END OF THE CERTIFICATION PERIOD. Encounters Start Date/Time End Date/Time Encounter Type Admission Type Attending [facility] Care Department Encounter ID Discharge Date Discharge Status Discharge Condition Discharge Reason Percent Goals Met 2025-06-05 00:00:00 2025-08-03 00:00:00 Outpatient RECERTIFIC HORTENCIA MARISCAL [facility] [id number] 66.67
--- OUTSIDE RECORDS SUMMARY | 2025-08-02 19:00 | XMS_ITS | Clinical Summary ---
Author Organization Unknown Care Team Providers Care Anesthesia Attending Name Role Phone MONIQUE WILSON, CAMERON Unavailable Unavailable DELIA JUDDN, NATALIO Unavailable Unavailable MARÍA LABOR SERVICE REPRESENTATIVE, HUSSEIN Unavailable Unavailable HUNTER PT, HORTENCIA Unavailable Unavailable SAMARIA RN, ZACH Unavailable Unavailable Payers Payer Name Policy Type Policy Number Effective Date Expira tion Date MEDICARE - [place] - PD [id number] Problems Condition Name Condition Details Condition Category [...] 09-07 00:00: 00 ATHSCL HEART DISEASE OF [place] CORONARY ARTERY W/O ANG PCTRS Active 09-07 [...] 03-31 00:00: 00 05-29 23:59 :00 No [id number] unit 4 TIMES DAILY [id number] unit 4 TIMES DAILY (route: oral) Med Classific ation: Mouth-Thr oat-Denta l - Preparati ons clotrimazol e 10 mg addison 03-21 00:00: 00 05-18 23:59 :00 No [id number] Per instruc tions 5 TIMES A DAY Per instructio ns 5 TIMES A DAY (route: mucous membrane) Med Classific ation: Mouth-Thr oat-Denta l - Preparati ons Vyndamax 61 mg capsule 03-20 00:00: 00 Yes [id number] 1 capsule EVERY AM 1 capsule EVERY AM (route: oral) Med Classific ation: Endocrine acetaminoph en 500 mg capsule 03-28 00:00: 00 Yes [id number] 2 capsule EVERY 6 HOURS 2 capsule EVERY 6 HOURS (route: oral) Med Classific ation: Analgesic , Anti-infl ammatory or Antipyret ic ascorbic acid (vitamin C) 500 mg tablet 03-28 00:00: 00 Yes [id number] 1 tablet BEDTIME 1 tablet BEDTIME (route: oral) Med Classific ation: Electroly te Balance-N utritiona l Products baclofen 10 mg tablet 03-28 00:00: 00 Yes [id number] 1 tablet BEDTIME 1 tablet BEDTIME (route: oral) Med Classific ation: Locomotor System calcium carbonate 750 mg-simethic one 80 mg chewable tablet 03-28 00:00: 00 Yes [id number] 1 tablet BEDTIME 1 tablet BEDTIME (route: oral) Med Classific ation: Gastroint estinal Therapy Agents docusate sodium 100 mg capsule 03-28 00:00: 00 Yes [id number] 100 mg 2 TIMES DAILY 100 mg 2 TIMES DAILY (route: oral) Med Classific ation: Gastroint estinal Therapy Agents omeprazole 20 mg capsule,del ayed release 03-28 00:00: 00 Yes [id number] 20 mg DAILY 20 mg DAILY (route: oral) Med Classific ation: Gastroint estinal Therapy Agents pantoprazol e 40 mg tablet,bridget yed release 03-28 00:00: 00 05-18 23:59 :00 No [id number] 1 tablet DAILY 1 tablet DAILY (route: oral) Med Classific ation: Gastroint estinal Therapy Agents simvastatin 10 mg tablet 03-28 00:00: 00 Yes [id number] 1 tablet BEDTIME 1 tablet BEDTIME (route: oral) Med Classific ation: Cardiovas cular Therapy Agents spironolact one 50 mg tablet 03-28 00:00: 00 Yes [id number] 2 tablet DAILY 2 tablet DAILY (route: oral) Med Classific ation: Cardiovas cular Therapy Agents terazosin 10 mg capsule 03-28 00:00: 00 Yes [id number] 1 capsule BEDTIME 1 capsule BEDTIME (route: oral) Med Classific ation: Cardiovas cular Therapy Agents thiamine HCl (vitamin B1) 100 mg capsule 03-28 00:00: 00 Yes [id number] 1 capsule BEDTIME 1 capsule BEDTIME (route: oral) Med Classific ation: Electroly te Balance-N utritiona l Products tolvaptan 30 mg tablet 03-28 00:00: 00 Yes [id number] 1 tablet DAILY 1 tablet DAILY (route: oral) Med Classific ation: Cardiovas cular Therapy Agents oxycodone 5 mg tablet 04-27 00:00: 00 05-18 23:59 :00 No [id number] 1 tablet EVERY 6 HOURS 1 tablet EVERY 6 HOURS (route: oral) Med Classific ation: Analgesic , Anti-infl ammatory or Antipyret ic oxycodone 5 mg tablet 8- 00:00: 00 Yes [id number] 1 tablet EVERY 4-6 HOURS NEEDED 1 tablet EVERY 4-6 HOURS NEEDED (route: oral) Med Classific ation: Analgesic , Anti-infl ammatory or Antipyret ic Jardiance 10 mg tablet 4-01 00:00: 00 Yes [id number] 1 tablet DAILY 1 tablet DAILY (route: oral) Med Classific ation: Endocrine Miralax 17 gram/dose oral powder 2-03 00:00: 00 Yes [id number] 17 gram 2 TIMES DAILY 17 gram 2 TIMES DAILY (route: oral) Med Classific ation: Gastroint estinal Therapy Agents torsemide 20 mg tablet 7-02 00:00: 00 Yes [id number] 1 tablet DAILY 1 tablet DAILY (route: oral) Med Classific ation: Cardiovas cular Therapy Agents tramadol 50 mg tablet - 00:00: 00 Yes [id number] 1 tablet EVERY 6 HOURS 1 tablet [...] MAINTAIN SITUATIONAL AWARENESS AND WILL NOTIFY CLINICAL BOTTOMING ROOM INSPECTOR AND PHYSICIAN/PROVIDER WITH ANY CHANGE IN CONDITION. [code = SKILLED NURSE TO PERFORM ENVIRONMENTAL SAFETY RISK ASSESSMENT AND FALL RISK ASSESSMENT AND PROVIDE INSTRUCTION TO IMPLEMENT ENVIRONMENTAL SAFETY AND FALL PREVENTION STRATEGIES THROUGHOUT THE CERTIFICATION PERIOD. SKILLED NURSE WILL MAINTAIN SITUATIONAL AWARENESS AND WILL NOTIFY CLINICAL BOTTOMING ROOM INSPECTOR AND PHYSICIAN/PROVIDER WITH ANY CHANGE IN CONDITION.] [...] TINETTI SCORE LESS THAN 19/30, 30 SECOND [id number] SCORE LESS THAN 6, AND DEMONSTRATES IMPAIRED ABILITY TO AMBULATE HOUSEHOLD DISTANCES EVIDENCED BY TUG SCORE GREATER THAN 30 SECONDS, HEP ESTABLISHED WITH PATIENT TO INCLUDE ABDOMINAL BRACING PERFORMED IN SUPINE, UTILIZING LOG ROLLING TECHNIQUES LEFT AND RIGHT SIDES WITH ABDOMINAL BRACING WITH EMPHASIS ON SPINE PRECAUTIONS, AND PARTIAL [id number] TRANSFER TRAINING PERFORMED WITH EMPHASIS ON HIP HINGING/MINIMIZING BENDING/LIFTING/TWISTING FOR MAINTAINING COMFORT, PATIENT HAS NO FORMAL SPINE PRECAUTIONS HOWEVER WILL BENEFIT FROM EDUCATION ON SPINE PRECAUTIONS FOR PAIN MANAGEMENT. PATIENT ABLE TO IMPROVE PAIN LEVELS FROM 9/10 DECREASED TO 6/10 BY END OF VISIT. PATIENT FRUSTRATED AND REPORTING THAT HE HAS HAD PAIN CONTROL ISSUES, REPORTS THAT PRESS OPERATOR HELPER AND PCP OFFICE OR BOTH UNWILLING TO [...] TINETTI SCORE LESS THAN 19/30, 30 SECOND [id number] SCORE LESS THAN 6, AND DEMONSTRATES IMPAIRED ABILITY TO AMBULATE HOUSEHOLD DISTANCES EVIDENCED BY TUG SCORE GREATER THAN 30 SECONDS, HEP ESTABLISHED WITH PATIENT TO INCLUDE ABDOMINAL BRACING PERFORMED IN SUPINE, UTILIZING LOG ROLLING TECHNIQUES LEFT AND RIGHT SIDES WITH ABDOMINAL BRACING WITH EMPHASIS ON SPINE PRECAUTIONS, AND PARTIAL [id number] TRANSFER TRAINING PERFORMED WITH EMPHASIS ON HIP HINGING/MINIMIZING BENDING/LIFTING/TWISTING FOR MAINTAINING COMFORT, PATIENT HAS NO FORMAL SPINE PRECAUTIONS HOWEVER WILL BENEFIT FROM EDUCATION ON SPINE PRECAUTIONS FOR PAIN MANAGEMENT. PATIENT ABLE TO IMPROVE PAIN LEVELS FROM 9/10 DECREASED TO 6/10 BY END OF VISIT. PATIENT FRUSTRATED AND REPORTING THAT HE HAS HAD PAIN CONTROL ISSUES, REPORTS THAT PRESS OPERATOR HELPER AND PCP OFFICE OR BOTH UNWILLING TO [...] End Date/Time Encounter Type Admission Type Attending [facility] Care Department Encounter ID Discharge Date Discharge Status Discharge Condition Discharge Reason Percent Goals Met 2025-06-05 00:00:00 2025-08-03 00:00:00 Outpatient RECERTIFIC HORTENCIA MARISCAL [facility] [id number] 66.67
--- OUTSIDE RECORDS SUMMARY | 2025-08-02 19:00 | XMS_ITS | Clinical Summary ---
Author Organization Unknown Care Team Providers Care Stock Unloader Name Role Phone MONIQUE WILSON, CAMERON Unavailable Unavailable DELIA JUDDN, NATALIO Unavailable Unavailable MARÍA UNLOADING CHECKER, HUSSEIN Unavailable Unavailable HUNTER PT, HORTENCIA Unavailable Unavailable SAMARIA RN, ZACH Unavailable Unavailable Payers Payer Name Policy Type Policy Number Effective Date Expira tion Date MEDICARE - [place] - [place] [id number] Problems Condition Name Condition Details Condition Category [...] 09-07 00:00: 00 ATHSCL HEART DISEASE OF [place] CORONARY ARTERY W/O ANG PCTRS Active 09-07 [...] 03-31 00:00: 00 05-29 23:59 :00 No [id number] unit 4 TIMES DAILY [id number] unit 4 TIMES DAILY (route: oral) Med Classific ation: Mouth-Thr oat-Denta l - Preparati ons clotrimazol e 10 mg addison 03-21 00:00: 00 05-18 23:59 :00 No [id number] Per instruc tions 5 TIMES A DAY Per instructio ns 5 TIMES A DAY (route: mucous membrane) Med Classific ation: Mouth-Thr oat-Denta l - Preparati ons Vyndamax 61 mg capsule 03-20 00:00: 00 Yes [id number] 1 capsule EVERY AM 1 capsule EVERY AM (route: oral) Med Classific ation: Endocrine acetaminoph en 500 mg capsule 03-28 00:00: 00 Yes [id number] 2 capsule EVERY 6 HOURS 2 capsule EVERY 6 HOURS (route: oral) Med Classific ation: Analgesic , Anti-infl ammatory or Antipyret ic ascorbic acid (vitamin C) 500 mg tablet 03-28 00:00: 00 Yes [id number] 1 tablet BEDTIME 1 tablet BEDTIME (route: oral) Med Classific ation: Electroly te Balance-N utritiona l Products baclofen 10 mg tablet 03-28 00:00: 00 Yes [id number] 1 tablet BEDTIME 1 tablet BEDTIME (route: oral) Med Classific ation: Locomotor System calcium carbonate 750 mg-simethic one 80 mg chewable tablet 03-28 00:00: 00 Yes [id number] 1 tablet BEDTIME 1 tablet BEDTIME (route: oral) Med Classific ation: Gastroint estinal Therapy Agents docusate sodium 100 mg capsule 03-28 00:00: 00 Yes [id number] 100 mg 2 TIMES DAILY 100 mg 2 TIMES DAILY (route: oral) Med Classific ation: Gastroint estinal Therapy Agents omeprazole 20 mg capsule,del ayed release 03-28 00:00: 00 Yes [id number] 20 mg DAILY 20 mg DAILY (route: oral) Med Classific ation: Gastroint estinal Therapy Agents pantoprazol e 40 mg tablet,bridget yed release 03-28 00:00: 00 05-18 23:59 :00 No [id number] 1 tablet DAILY 1 tablet DAILY (route: oral) Med Classific ation: Gastroint estinal Therapy Agents simvastatin 10 mg tablet 03-28 00:00: 00 Yes [id number] 1 tablet BEDTIME 1 tablet BEDTIME (route: oral) Med Classific ation: Cardiovas cular Therapy Agents spironolact one 50 mg tablet 03-28 00:00: 00 Yes [id number] 2 tablet DAILY 2 tablet DAILY (route: oral) Med Classific ation: Cardiovas cular Therapy Agents terazosin 10 mg capsule 03-28 00:00: 00 Yes [id number] 1 capsule BEDTIME 1 capsule BEDTIME (route: oral) Med Classific ation: Cardiovas cular Therapy Agents thiamine HCl (vitamin B1) 100 mg capsule 03-28 00:00: 00 Yes [id number] 1 capsule BEDTIME 1 capsule BEDTIME (route: oral) Med Classific ation: Electroly te Balance-N utritiona l Products tolvaptan 30 mg tablet 03-28 00:00: 00 Yes [id number] 1 tablet DAILY 1 tablet DAILY (route: oral) Med Classific ation: Cardiovas cular Therapy Agents oxycodone 5 mg tablet 04-27 00:00: 00 05-18 23:59 :00 No [id number] 1 tablet EVERY 6 HOURS 1 tablet EVERY 6 HOURS (route: oral) Med Classific ation: Analgesic , Anti-infl ammatory or Antipyret ic oxycodone 5 mg tablet 8- 00:00: 00 Yes [id number] 1 tablet EVERY 4-6 HOURS NEEDED 1 tablet EVERY 4-6 HOURS NEEDED (route: oral) Med Classific ation: Analgesic , Anti-infl ammatory or Antipyret ic Jardiance 10 mg tablet 4-01 00:00: 00 Yes [id number] 1 tablet DAILY 1 tablet DAILY (route: oral) Med Classific ation: Endocrine Miralax 17 gram/dose oral powder 2-03 00:00: 00 Yes [id number] 17 gram 2 TIMES DAILY 17 gram 2 TIMES DAILY (route: oral) Med Classific ation: Gastroint estinal Therapy Agents torsemide 20 mg tablet 7-02 00:00: 00 Yes [id number] 1 tablet DAILY 1 tablet DAILY (route: oral) Med Classific ation: Cardiovas cular Therapy Agents tramadol 50 mg tablet - 00:00: 00 Yes [id number] 1 tablet EVERY 6 HOURS 1 tablet [...] MAINTAIN SITUATIONAL AWARENESS AND WILL NOTIFY CLINICAL GAS WELL DRILLING MANAGER AND PHYSICIAN/PROVIDER WITH ANY CHANGE IN CONDITION. [code = SKILLED NURSE TO PERFORM ENVIRONMENTAL SAFETY RISK ASSESSMENT AND FALL RISK ASSESSMENT AND PROVIDE INSTRUCTION TO IMPLEMENT ENVIRONMENTAL SAFETY AND FALL PREVENTION STRATEGIES THROUGHOUT THE CERTIFICATION PERIOD. SKILLED NURSE WILL MAINTAIN SITUATIONAL AWARENESS AND WILL NOTIFY CLINICAL GAS WELL DRILLING MANAGER AND PHYSICIAN/PROVIDER WITH ANY CHANGE IN CONDITION.] [...] TINETTI SCORE LESS THAN 19/30, 30 SECOND [id number] SCORE LESS THAN 6, AND DEMONSTRATES IMPAIRED ABILITY TO AMBULATE HOUSEHOLD DISTANCES EVIDENCED BY TUG SCORE GREATER THAN 30 SECONDS, HEP ESTABLISHED WITH PATIENT TO INCLUDE ABDOMINAL BRACING PERFORMED IN SUPINE, UTILIZING LOG ROLLING TECHNIQUES LEFT AND RIGHT SIDES WITH ABDOMINAL BRACING WITH EMPHASIS ON SPINE PRECAUTIONS, AND PARTIAL [id number]-DY-[id number] TRANSFER TRAINING PERFORMED WITH EMPHASIS ON HIP HINGING/MINIMIZING BENDING/LIFTING/TWISTING FOR MAINTAINING COMFORT, PATIENT HAS NO FORMAL SPINE PRECAUTIONS HOWEVER WILL BENEFIT FROM EDUCATION ON SPINE PRECAUTIONS FOR PAIN MANAGEMENT. PATIENT ABLE TO IMPROVE PAIN LEVELS FROM 9/10 DECREASED TO 6/10 BY END OF VISIT. PATIENT FRUSTRATED AND REPORTING THAT HE HAS HAD PAIN CONTROL ISSUES, REPORTS THAT DOMESTIC CLEANER AND PCP OFFICE OR BOTH UNWILLING TO [...] TINETTI SCORE LESS THAN 19/30, 30 SECOND [id number] SCORE LESS THAN 6, AND DEMONSTRATES IMPAIRED ABILITY TO AMBULATE HOUSEHOLD DISTANCES EVIDENCED BY TUG SCORE GREATER THAN 30 SECONDS, HEP ESTABLISHED WITH PATIENT TO INCLUDE ABDOMINAL BRACING PERFORMED IN SUPINE, UTILIZING LOG ROLLING TECHNIQUES LEFT AND RIGHT SIDES WITH ABDOMINAL BRACING WITH EMPHASIS ON SPINE PRECAUTIONS, AND PARTIAL [id number] TRANSFER TRAINING PERFORMED WITH EMPHASIS ON HIP HINGING/MINIMIZING BENDING/LIFTING/TWISTING FOR MAINTAINING COMFORT, PATIENT HAS NO FORMAL SPINE PRECAUTIONS HOWEVER WILL BENEFIT FROM EDUCATION ON SPINE PRECAUTIONS FOR PAIN MANAGEMENT. PATIENT ABLE TO IMPROVE PAIN LEVELS FROM 9/10 DECREASED TO 6/10 BY END OF VISIT. PATIENT FRUSTRATED AND REPORTING THAT HE HAS HAD PAIN CONTROL ISSUES, REPORTS THAT DOMESTIC CLEANER AND PCP OFFICE OR BOTH UNWILLING TO [...] CARE WILL BE ESTABLISHED THAT MEETS PATIENT'S JAIL NEEDS AND INCLUDES PATIENT GOAL FOR HOME [...] 00:00:00 2025-08-03 00:00:00 Outpatient RECERTIFIC HORTENCIA [facility]ISCAL [facility] [id number]
--- OUTSIDE RECORDS SUMMARY | 2025-08-02 19:00 | XMS_ITS | Clinical Summary ---
Author Organization Unknown Care Team Providers Care Geological E Logger Name Role Phone MONIQUE WILSON, CAMERON Unavailable Unavailable DELIA JUDDN, NATALIO Unavailable Unavailable MARÍA DIRECTOR OF FIRST IMPRESSIONS, HUSSEIN Unavailable Unavailable HUNTER PT, HORTENCIA Unavailable Unavailable SAMARIA RN, ZACH Unavailable Unavailable Payers Payer Name Policy Type Policy Number Effective Date Expira tion Date MEDICARE - NGS [place] - [place] [id number] Problems Condition Name Condition Details Condition Category [...] 09-07 00:00: 00 ATHSCL HEART DISEASE OF [place] CORONARY ARTERY W/O ANG PCTRS Active 09-07 [...] 03-31 00:00: 00 05-29 23:59 :00 No [id number] unit 4 TIMES DAILY [id number] unit 4 TIMES DAILY (route: oral) Med Classific ation: Mouth-Thr oat-Denta l - Preparati ons clotrimazol e 10 mg addison 03-21 00:00: 00 05-18 23:59 :00 No [id number] Per instruc tions 5 TIMES A DAY Per instructio ns 5 TIMES A DAY (route: mucous membrane) Med Classific ation: Mouth-Thr oat-Denta l - Preparati ons Vyndamax 61 mg capsule 03-20 00:00: 00 Yes [id number] 1 capsule EVERY AM 1 capsule EVERY AM (route: oral) Med Classific ation: Endocrine acetaminoph en 500 mg capsule 03-28 00:00: 00 Yes [id number] 2 capsule EVERY 6 HOURS 2 capsule EVERY 6 HOURS (route: oral) Med Classific ation: Analgesic , Anti-infl ammatory or Antipyret ic ascorbic acid (vitamin C) 500 mg tablet 03-28 00:00: 00 Yes [id number] 1 tablet BEDTIME 1 tablet BEDTIME (route: oral) Med Classific ation: Electroly te Balance-N utritiona l Products baclofen 10 mg tablet 03-28 00:00: 00 Yes [id number] 1 tablet BEDTIME 1 tablet BEDTIME (route: oral) Med Classific ation: Locomotor System calcium carbonate 750 mg-simethic one 80 mg chewable tablet 03-28 00:00: 00 Yes [id number] 1 tablet BEDTIME 1 tablet BEDTIME (route: oral) Med Classific ation: Gastroint estinal Therapy Agents docusate sodium 100 mg capsule 03-28 00:00: 00 Yes [id number] 100 mg 2 TIMES DAILY 100 mg 2 TIMES DAILY (route: oral) Med Classific ation: Gastroint estinal Therapy Agents omeprazole 20 mg capsule,del ayed release 03-28 00:00: 00 Yes [id number] 20 mg DAILY 20 mg DAILY (route: oral) Med Classific ation: Gastroint estinal Therapy Agents pantoprazol e 40 mg tablet,bridget yed release 03-28 00:00: 00 05-18 23:59 :00 No [id number] 1 tablet DAILY 1 tablet DAILY (route: oral) Med Classific ation: Gastroint estinal Therapy Agents simvastatin 10 mg tablet 03-28 00:00: 00 Yes [id number] 1 tablet BEDTIME 1 tablet BEDTIME (route: oral) Med Classific ation: Cardiovas cular Therapy Agents spironolact one 50 mg tablet 03-28 00:00: 00 Yes [id number] 2 tablet DAILY 2 tablet DAILY (route: oral) Med Classific ation: Cardiovas cular Therapy Agents terazosin 10 mg capsule 03-28 00:00: 00 Yes [id number] 1 capsule BEDTIME 1 capsule BEDTIME (route: oral) Med Classific ation: Cardiovas cular Therapy Agents thiamine HCl (vitamin B1) 100 mg capsule 03-28 00:00: 00 Yes [id number] 1 capsule BEDTIME 1 capsule BEDTIME (route: oral) Med Classific ation: Electroly te Balance-N utritiona l Products tolvaptan 30 mg tablet 03-28 00:00: 00 Yes [id number] 1 tablet DAILY 1 tablet DAILY (route: oral) Med Classific ation: Cardiovas cular Therapy Agents oxycodone 5 mg tablet 04-27 00:00: 00 05-18 23:59 :00 No [id number] 1 tablet EVERY 6 HOURS 1 tablet EVERY 6 HOURS (route: oral) Med Classific ation: Analgesic , Anti-infl ammatory or Antipyret ic oxycodone 5 mg tablet 8- 00:00: 00 Yes [id number] 1 tablet EVERY 4-6 HOURS NEEDED 1 tablet EVERY 4-6 HOURS NEEDED (route: oral) Med Classific ation: Analgesic , Anti-infl ammatory or Antipyret ic Jardiance 10 mg tablet 4-01 00:00: 00 Yes [id number] 1 tablet DAILY 1 tablet DAILY (route: oral) Med Classific ation: Endocrine Miralax 17 gram/dose oral powder 2-03 00:00: 00 Yes [id number] 17 gram 2 TIMES DAILY 17 gram 2 TIMES DAILY (route: oral) Med Classific ation: Gastroint estinal Therapy Agents torsemide 20 mg tablet 7-02 00:00: 00 Yes [id number] 1 tablet DAILY 1 tablet DAILY (route: oral) Med Classific ation: Cardiovas cular Therapy Agents tramadol 50 mg tablet - 00:00: 00 Yes [id number] 1 tablet EVERY 6 HOURS 1 tablet [...] MAINTAIN SITUATIONAL AWARENESS AND WILL NOTIFY CLINICAL ELECTRICIAN CRANE MAINTENANCE AND PHYSICIAN/PROVIDER WITH ANY CHANGE IN CONDITION. [code = SKILLED NURSE TO PERFORM ENVIRONMENTAL SAFETY RISK ASSESSMENT AND FALL RISK ASSESSMENT AND PROVIDE INSTRUCTION TO IMPLEMENT ENVIRONMENTAL SAFETY AND FALL PREVENTION STRATEGIES THROUGHOUT THE CERTIFICATION PERIOD. SKILLED NURSE WILL MAINTAIN SITUATIONAL AWARENESS AND WILL NOTIFY CLINICAL ELECTRICIAN CRANE MAINTENANCE AND PHYSICIAN/PROVIDER WITH ANY CHANGE IN CONDITION.] [...] TINETTI SCORE LESS THAN 19/30, 30 SECOND [id number] SCORE LESS THAN 6, AND DEMONSTRATES IMPAIRED ABILITY TO AMBULATE HOUSEHOLD DISTANCES EVIDENCED BY TUG SCORE GREATER THAN 30 SECONDS, HEP ESTABLISHED WITH PATIENT TO INCLUDE ABDOMINAL BRACING PERFORMED IN SUPINE, UTILIZING LOG ROLLING TECHNIQUES LEFT AND RIGHT SIDES WITH ABDOMINAL BRACING WITH EMPHASIS ON SPINE PRECAUTIONS, AND PARTIAL [id number] TRANSFER TRAINING PERFORMED WITH EMPHASIS ON HIP HINGING/MINIMIZING BENDING/LIFTING/TWISTING FOR MAINTAINING COMFORT, PATIENT HAS NO FORMAL SPINE PRECAUTIONS HOWEVER WILL BENEFIT FROM EDUCATION ON SPINE PRECAUTIONS FOR PAIN MANAGEMENT. PATIENT ABLE TO IMPROVE PAIN LEVELS FROM 9/10 DECREASED TO 6/10 BY END OF VISIT. PATIENT FRUSTRATED AND REPORTING THAT HE HAS HAD PAIN CONTROL ISSUES, REPORTS THAT AREA SECRETARY AND PCP OFFICE OR BOTH UNWILLING TO [...] TINETTI SCORE LESS THAN 19/30, 30 SECOND [id number] SCORE LESS THAN 6, AND DEMONSTRATES IMPAIRED ABILITY TO AMBULATE HOUSEHOLD DISTANCES EVIDENCED BY TUG SCORE GREATER THAN 30 SECONDS, HEP ESTABLISHED WITH PATIENT TO INCLUDE ABDOMINAL BRACING PERFORMED IN SUPINE, UTILIZING LOG ROLLING TECHNIQUES LEFT AND RIGHT SIDES WITH ABDOMINAL BRACING WITH EMPHASIS ON SPINE PRECAUTIONS, AND PARTIAL [id number] TRANSFER TRAINING PERFORMED WITH EMPHASIS ON HIP HINGING/MINIMIZING BENDING/LIFTING/TWISTING FOR MAINTAINING COMFORT, PATIENT HAS NO FORMAL SPINE PRECAUTIONS HOWEVER WILL BENEFIT FROM EDUCATION ON SPINE PRECAUTIONS FOR PAIN MANAGEMENT. PATIENT ABLE TO IMPROVE PAIN LEVELS FROM 9/10 DECREASED TO 6/10 BY END OF VISIT. PATIENT FRUSTRATED AND REPORTING THAT HE HAS HAD PAIN CONTROL ISSUES, REPORTS THAT AREA SECRETARY AND PCP OFFICE OR BOTH UNWILLING TO [...] CARE WILL BE ESTABLISHED THAT MEETS PATIENT'S HALF-WAY NEEDS AND INCLUDES PATIENT GOAL FOR HOME [...] End Date/Time Encounter Type Admission Type Attending [facility] Care Department Encounter ID Discharge Date Discharge Status Discharge Condition Discharge Reason Percent Goals Met 2025-06-05 00:00:00 2025-08-03 00:00:00 Outpatient RECERTIFIC HORTENCIA MARISCAL [facility] [id number] 66.67
--- OUTSIDE RECORDS SUMMARY | 2025-08-02 19:00 | XMS_ITS | Clinical Summary ---
Author Organization Unknown Care Team Providers Care Carbon Paper Coating Machine Setter Name Role Phone MONIQUE WILSON, CAMERON Unavailable Unavailable DELIA JUDDN, NATALIO Unavailable Unavailable MARÍA LOAN SERVICING SPECIALIST, HUSSEIN Unavailable Unavailable HUNTER PT, HORTENCIA Unavailable Unavailable SAMARIA RN, ZACH Unavailable Unavailable Payers Payer Name Policy Type Policy Number Effective Date Expira tion Date MEDICARE - [place]GS [place] - [place] [id number] Problems Condition Name Condition Details Condition Category [...] 09-07 00:00: 00 ATHSCL HEART DISEASE OF [place] CORONARY ARTERY W/O ANG PCTRS Active 09-07 [...] 03-31 00:00: 00 05-29 23:59 :00 No [id number] unit 4 TIMES DAILY [id number] unit 4 TIMES DAILY (route: oral) Med Classific ation: Mouth-Thr oat-Denta l - Preparati ons clotrimazol e 10 mg addison 03-21 00:00: 00 05-18 23:59 :00 No [id number] Per instruc tions 5 TIMES A DAY Per instructio ns 5 TIMES A DAY (route: mucous membrane) Med Classific ation: Mouth-Thr oat-Denta l - Preparati ons Vyndamax 61 mg capsule 03-20 00:00: 00 Yes [id number] 1 capsule EVERY AM 1 capsule EVERY AM (route: oral) Med Classific ation: Endocrine acetaminoph en 500 mg capsule 03-28 00:00: 00 Yes [id number] 2 capsule EVERY 6 HOURS 2 capsule EVERY 6 HOURS (route: oral) Med Classific ation: Analgesic , Anti-infl ammatory or Antipyret ic ascorbic acid (vitamin C) 500 mg tablet 03-28 00:00: 00 Yes [id number] 1 tablet BEDTIME 1 tablet BEDTIME (route: oral) Med Classific ation: Electroly te Balance-N utritiona l Products baclofen 10 mg tablet 03-28 00:00: 00 Yes [id number] 1 tablet BEDTIME 1 tablet BEDTIME (route: oral) Med Classific ation: Locomotor System calcium carbonate 750 mg-simethic one 80 mg chewable tablet 03-28 00:00: 00 Yes [id number] 1 tablet BEDTIME 1 tablet BEDTIME (route: oral) Med Classific ation: Gastroint estinal Therapy Agents docusate sodium 100 mg capsule 03-28 00:00: 00 Yes [id number] 100 mg 2 TIMES DAILY 100 mg 2 TIMES DAILY (route: oral) Med Classific ation: Gastroint estinal Therapy Agents omeprazole 20 mg capsule,del ayed release 03-28 00:00: 00 Yes [id number] 20 mg DAILY 20 mg DAILY (route: oral) Med Classific ation: Gastroint estinal Therapy Agents pantoprazol e 40 mg tablet,bridget yed release 03-28 00:00: 00 05-18 23:59 :00 No [id number] 1 tablet DAILY 1 tablet DAILY (route: oral) Med Classific ation: Gastroint estinal Therapy Agents simvastatin 10 mg tablet 03-28 00:00: 00 Yes [id number] 1 tablet BEDTIME 1 tablet BEDTIME (route: oral) Med Classific ation: Cardiovas cular Therapy Agents spironolact one 50 mg tablet 03-28 00:00: 00 Yes [id number] 2 tablet DAILY 2 tablet DAILY (route: oral) Med Classific ation: Cardiovas cular Therapy Agents terazosin 10 mg capsule 03-28 00:00: 00 Yes [id number] 1 capsule BEDTIME 1 capsule BEDTIME (route: oral) Med Classific ation: Cardiovas cular Therapy Agents thiamine HCl (vitamin B1) 100 mg capsule 03-28 00:00: 00 Yes [id number] 1 capsule BEDTIME 1 capsule BEDTIME (route: oral) Med Classific ation: Electroly te Balance-N utritiona l Products tolvaptan 30 mg tablet 03-28 00:00: 00 Yes [id number] 1 tablet DAILY 1 tablet DAILY (route: oral) Med Classific ation: Cardiovas cular Therapy Agents oxycodone 5 mg tablet 04-27 00:00: 00 05-18 23:59 :00 No [id number] 1 tablet EVERY 6 HOURS 1 tablet EVERY 6 HOURS (route: oral) Med Classific ation: Analgesic , Anti-infl ammatory or Antipyret ic oxycodone 5 mg tablet 8- 00:00: 00 Yes [id number] 1 tablet EVERY 4-6 HOURS NEEDED 1 tablet EVERY 4-6 HOURS NEEDED (route: oral) Med Classific ation: Analgesic , Anti-infl ammatory or Antipyret ic Jardiance 10 mg tablet 4-01 00:00: 00 Yes [id number] 1 tablet DAILY 1 tablet DAILY (route: oral) Med Classific ation: Endocrine Miralax 17 gram/dose oral powder 2-03 00:00: 00 Yes [id number] 17 gram 2 TIMES DAILY 17 gram 2 TIMES DAILY (route: oral) Med Classific ation: Gastroint estinal Therapy Agents torsemide 20 mg tablet 7-02 00:00: 00 Yes [id number] 1 tablet DAILY 1 tablet DAILY (route: oral) Med Classific ation: Cardiovas cular Therapy Agents tramadol 50 mg tablet - 00:00: 00 Yes [id number] 1 tablet EVERY 6 HOURS 1 tablet [...] MAINTAIN SITUATIONAL AWARENESS AND WILL NOTIFY CLINICAL CHICKEN CLEANER AND PHYSICIAN/PROVIDER WITH ANY CHANGE IN CONDITION. [code = SKILLED NURSE TO PERFORM ENVIRONMENTAL SAFETY RISK ASSESSMENT AND FALL RISK ASSESSMENT AND PROVIDE INSTRUCTION TO IMPLEMENT ENVIRONMENTAL SAFETY AND FALL PREVENTION STRATEGIES THROUGHOUT THE CERTIFICATION PERIOD. SKILLED NURSE WILL MAINTAIN SITUATIONAL AWARENESS AND WILL NOTIFY CLINICAL CHICKEN CLEANER AND PHYSICIAN/PROVIDER WITH ANY CHANGE IN CONDITION.] [...] TINETTI SCORE LESS THAN 19/30, 30 SECOND [id number] SCORE LESS THAN 6, AND DEMONSTRATES IMPAIRED ABILITY TO AMBULATE HOUSEHOLD DISTANCES EVIDENCED BY TUG SCORE GREATER THAN 30 SECONDS, HEP ESTABLISHED WITH PATIENT TO INCLUDE ABDOMINAL BRACING PERFORMED IN SUPINE, UTILIZING LOG ROLLING TECHNIQUES LEFT AND RIGHT SIDES WITH ABDOMINAL BRACING WITH EMPHASIS ON SPINE PRECAUTIONS, AND PARTIAL [id number] TRANSFER TRAINING PERFORMED WITH EMPHASIS ON HIP HINGING/MINIMIZING BENDING/LIFTING/TWISTING FOR MAINTAINING COMFORT, PATIENT HAS NO FORMAL SPINE PRECAUTIONS HOWEVER WILL BENEFIT FROM EDUCATION ON SPINE PRECAUTIONS FOR PAIN MANAGEMENT. PATIENT ABLE TO IMPROVE PAIN LEVELS FROM 9/10 DECREASED TO 6/10 BY END OF VISIT. PATIENT FRUSTRATED AND REPORTING THAT HE HAS HAD PAIN CONTROL ISSUES, REPORTS THAT CILNICAL SCIENTIST AND PCP OFFICE OR BOTH UNWILLING TO [...] TINETTI SCORE LESS THAN 19/30, 30 SECOND [id number] SCORE LESS THAN 6, AND DEMONSTRATES IMPAIRED ABILITY TO AMBULATE HOUSEHOLD DISTANCES EVIDENCED BY TUG SCORE GREATER THAN 30 SECONDS, HEP ESTABLISHED WITH PATIENT TO INCLUDE ABDOMINAL BRACING PERFORMED IN SUPINE, UTILIZING LOG ROLLING TECHNIQUES LEFT AND RIGHT SIDES WITH ABDOMINAL BRACING WITH EMPHASIS ON SPINE PRECAUTIONS, AND PARTIAL [id number] TRANSFER TRAINING PERFORMED WITH EMPHASIS ON HIP HINGING/MINIMIZING BENDING/LIFTING/TWISTING FOR MAINTAINING COMFORT, PATIENT HAS NO FORMAL SPINE PRECAUTIONS HOWEVER WILL BENEFIT FROM EDUCATION ON SPINE PRECAUTIONS FOR PAIN MANAGEMENT. PATIENT ABLE TO IMPROVE PAIN LEVELS FROM 9/10 DECREASED TO 6/10 BY END OF VISIT. PATIENT FRUSTRATED AND REPORTING THAT HE HAS HAD PAIN CONTROL ISSUES, REPORTS THAT CILNICAL SCIENTIST AND PCP OFFICE OR BOTH UNWILLING TO [...] End Date/Time Encounter Type Admission Type Attending [facility] Care Department Encounter ID Discharge Date Discharge Status Discharge Condition Discharge Reason Percent Goals Met 2025-06-05 00:00:00 2025-08-03 00:00:00 Outpatient RECERTIFIC HORTENCIA MARISCAL [facility] [id number] 66.67
--- OUTSIDE RECORDS SUMMARY | 2025-08-02 19:00 | XMS_ITS | Clinical Summary ---
Author Organization Unknown Care Team Providers Care Mold Shaker Name Role Phone MONIQUE WILSON, CAMERON Unavailable Unavailable DELIA JUDDN, NATALIO Unavailable Unavailable MARÍA CAPACITOR REPAIRER, HUSSEIN Unavailable Unavailable HUNTER PT, HORTENCIA Unavailable Unavailable SAMARIA RN, ZACH Unavailable Unavailable Payers Payer Name Policy Type Policy Number Effective Date Expira tion Date MEDICARE - [place] [id number] Problems Condition Name Condition Details Condition Category [...] 09-07 00:00: 00 ATHSCL HEART DISEASE OF [place] CORONARY ARTERY W/O ANG PCTRS Active 09-07 [...] 03-31 00:00: 00 05-29 23:59 :00 No [id number] unit 4 TIMES DAILY [id number] unit 4 TIMES DAILY (route: oral) Med Classific ation: Mouth-Thr oat-Denta l - Preparati ons clotrimazol e 10 mg addison 03-21 00:00: 00 05-18 23:59 :00 No [id number] Per instruc tions 5 TIMES A DAY Per instructio ns 5 TIMES A DAY (route: mucous membrane) Med Classific ation: Mouth-Thr oat-Denta l - Preparati ons Vyndamax 61 mg capsule 03-20 00:00: 00 Yes [id number] 1 capsule EVERY AM 1 capsule EVERY AM (route: oral) Med Classific ation: Endocrine acetaminoph en 500 mg capsule 03-28 00:00: 00 Yes [id number] 2 capsule EVERY 6 HOURS 2 capsule EVERY 6 HOURS (route: oral) Med Classific ation: Analgesic , Anti-infl ammatory or Antipyret ic ascorbic acid (vitamin C) 500 mg tablet 03-28 00:00: 00 Yes [id number] 1 tablet BEDTIME 1 tablet BEDTIME (route: oral) Med Classific ation: Electroly te Balance-N utritiona l Products baclofen 10 mg tablet 03-28 00:00: 00 Yes [id number] 1 tablet BEDTIME 1 tablet BEDTIME (route: oral) Med Classific ation: Locomotor System calcium carbonate 750 mg-simethic one 80 mg chewable tablet 03-28 00:00: 00 Yes [id number] 1 tablet BEDTIME 1 tablet BEDTIME (route: oral) Med Classific ation: Gastroint estinal Therapy Agents docusate sodium 100 mg capsule 03-28 00:00: 00 Yes [id number] 100 mg 2 TIMES DAILY 100 mg 2 TIMES DAILY (route: oral) Med Classific ation: Gastroint estinal Therapy Agents omeprazole 20 mg capsule,del ayed release 03-28 00:00: 00 Yes [id number] 20 mg DAILY 20 mg DAILY (route: oral) Med Classific ation: Gastroint estinal Therapy Agents pantoprazol e 40 mg tablet,bridget yed release 03-28 00:00: 00 05-18 23:59 :00 No [id number] 1 tablet DAILY 1 tablet DAILY (route: oral) Med Classific ation: Gastroint estinal Therapy Agents simvastatin 10 mg tablet 03-28 00:00: 00 Yes [id number] 1 tablet BEDTIME 1 tablet BEDTIME (route: oral) Med Classific ation: Cardiovas cular Therapy Agents spironolact one 50 mg tablet 03-28 00:00: 00 Yes [id number] 2 tablet DAILY 2 tablet DAILY (route: oral) Med Classific ation: Cardiovas cular Therapy Agents terazosin 10 mg capsule 03-28 00:00: 00 Yes [id number] 1 capsule BEDTIME 1 capsule BEDTIME (route: oral) Med Classific ation: Cardiovas cular Therapy Agents thiamine HCl (vitamin B1) 100 mg capsule 03-28 00:00: 00 Yes [id number] 1 capsule BEDTIME 1 capsule BEDTIME (route: oral) Med Classific ation: Electroly te Balance-N utritiona l Products tolvaptan 30 mg tablet 03-28 00:00: 00 Yes [id number] 1 tablet DAILY 1 tablet DAILY (route: oral) Med Classific ation: Cardiovas cular Therapy Agents oxycodone 5 mg tablet 04-27 00:00: 00 05-18 23:59 :00 No [id number] 1 tablet EVERY 6 HOURS 1 tablet EVERY 6 HOURS (route: oral) Med Classific ation: Analgesic , Anti-infl ammatory or Antipyret ic oxycodone 5 mg tablet 8- 00:00: 00 Yes [id number] 1 tablet EVERY 4-6 HOURS NEEDED 1 tablet EVERY 4-6 HOURS NEEDED (route: oral) Med Classific ation: Analgesic , Anti-infl ammatory or Antipyret ic Jardiance 10 mg tablet 4-01 00:00: 00 Yes [id number] 1 tablet DAILY 1 tablet DAILY (route: oral) Med Classific ation: Endocrine Miralax 17 gram/dose oral powder 2-03 00:00: 00 Yes [id number] 17 gram 2 TIMES DAILY 17 gram 2 TIMES DAILY (route: oral) Med Classific ation: Gastroint estinal Therapy Agents torsemide 20 mg tablet 7-02 00:00: 00 Yes [id number] 1 tablet DAILY 1 tablet DAILY (route: oral) Med Classific ation: Cardiovas cular Therapy Agents tramadol 50 mg tablet - 00:00: 00 Yes [id number] 1 tablet EVERY 6 HOURS 1 tablet [...] MAINTAIN SITUATIONAL AWARENESS AND WILL NOTIFY CLINICAL HHAS AND PHYSICIAN/PROVIDER WITH ANY CHANGE IN CONDITION. [code = SKILLED NURSE TO PERFORM ENVIRONMENTAL SAFETY RISK ASSESSMENT AND FALL RISK ASSESSMENT AND PROVIDE INSTRUCTION TO IMPLEMENT ENVIRONMENTAL SAFETY AND FALL PREVENTION STRATEGIES THROUGHOUT THE CERTIFICATION PERIOD. SKILLED NURSE WILL MAINTAIN SITUATIONAL AWARENESS AND WILL NOTIFY CLINICAL HHAS AND PHYSICIAN/PROVIDER WITH ANY CHANGE IN CONDITION.] [...] TINETTI SCORE LESS THAN 19/30, 30 SECOND [id number] SCORE LESS THAN 6, AND DEMONSTRATES IMPAIRED ABILITY TO AMBULATE HOUSEHOLD DISTANCES EVIDENCED BY TUG SCORE GREATER THAN 30 SECONDS, HEP ESTABLISHED WITH PATIENT TO INCLUDE ABDOMINAL BRACING PERFORMED IN SUPINE, UTILIZING LOG ROLLING TECHNIQUES LEFT AND RIGHT SIDES WITH ABDOMINAL BRACING WITH EMPHASIS ON SPINE PRECAUTIONS, AND PARTIAL [id number] TRANSFER TRAINING PERFORMED WITH EMPHASIS ON HIP HINGING/MINIMIZING BENDING/LIFTING/TWISTING FOR MAINTAINING COMFORT, PATIENT HAS NO FORMAL SPINE PRECAUTIONS HOWEVER WILL BENEFIT FROM EDUCATION ON SPINE PRECAUTIONS FOR PAIN MANAGEMENT. PATIENT ABLE TO IMPROVE PAIN LEVELS FROM 9/10 DECREASED TO 6/10 BY END OF VISIT. PATIENT FRUSTRATED AND REPORTING THAT HE HAS HAD PAIN CONTROL ISSUES, REPORTS THAT RESIDENTIAL TREATMENT SPECIALIST AND PCP OFFICE OR BOTH UNWILLING TO [...] TINETTI SCORE LESS THAN 19/30, 30 SECOND [id number] SCORE LESS THAN 6, AND DEMONSTRATES IMPAIRED ABILITY TO AMBULATE HOUSEHOLD DISTANCES EVIDENCED BY TUG SCORE GREATER THAN 30 SECONDS, HEP ESTABLISHED WITH PATIENT TO INCLUDE ABDOMINAL BRACING PERFORMED IN SUPINE, UTILIZING LOG ROLLING TECHNIQUES LEFT AND RIGHT SIDES WITH ABDOMINAL BRACING WITH EMPHASIS ON SPINE PRECAUTIONS, AND PARTIAL LBA-CP-OTYSE TRANSFER TRAINING PERFORMED WITH EMPHASIS ON HIP HINGING/MINIMIZING BENDING/LIFTING/TWISTING FOR MAINTAINING COMFORT, PATIENT HAS NO FORMAL SPINE PRECAUTIONS HOWEVER WILL BENEFIT FROM EDUCATION ON SPINE PRECAUTIONS FOR PAIN MANAGEMENT. PATIENT ABLE TO IMPROVE PAIN LEVELS FROM 9/10 DECREASED TO 6/10 BY END OF VISIT. PATIENT FRUSTRATED AND REPORTING THAT HE HAS HAD PAIN CONTROL ISSUES, REPORTS THAT RESIDENTIAL TREATMENT SPECIALIST AND PCP OFFICE OR BOTH UNWILLING TO [...] End Date/Time Encounter Type Admission Type Attending [facility] Care Department Encounter ID Discharge Date Discharge Status Discharge Condition Discharge Reason Percent Goals Met 2025-06-05 00:00:00 2025-08-03 00:00:00 Outpatient RECERTIFIC HORTENCIA MARISCAL [facility] [id number] 66.67
--- OUTSIDE RECORDS SUMMARY | 2025-08-02 19:00 | XMS_ITS | Clinical Summary ---
Author Organization Unknown Care Team Providers Care Support Clerk Name Role Phone MONIQUE WILSON, CAMERON Unavailable Unavailable DELIA JUDDN, NATALIO Unavailable Unavailable MARÍA MULESER, HUSSEIN Unavailable Unavailable HUNTER PT, HORTENCIA Unavailable Unavailable SAMARIA RN, ZACH Unavailable Unavailable Payers Payer Name Policy Type Policy Number Effective Date Expira tion Date MEDICARE - [place] [id number] Problems Condition Name Condition Details Condition Category [...] 09-07 00:00: 00 ATHSCL HEART DISEASE OF [place] CORONARY ARTERY W/O ANG PCTRS Active 09-07 [...] 03-31 00:00: 00 05-29 23:59 :00 No [id number] unit 4 TIMES DAILY [id number] unit 4 TIMES DAILY (route: oral) Med Classific ation: Mouth-Thr oat-Denta l - Preparati ons clotrimazol e 10 mg addison 03-21 00:00: 00 05-18 23:59 :00 No [id number] Per instruc tions 5 TIMES A DAY Per instructio ns 5 TIMES A DAY (route: mucous membrane) Med Classific ation: Mouth-Thr oat-Denta l - Preparati ons Vyndamax 61 mg capsule 03-20 00:00: 00 Yes [id number] 1 capsule EVERY AM 1 capsule EVERY AM (route: oral) Med Classific ation: Endocrine acetaminoph en 500 mg capsule 03-28 00:00: 00 Yes [id number] 2 capsule EVERY 6 HOURS 2 capsule EVERY 6 HOURS (route: oral) Med Classific ation: Analgesic , Anti-infl ammatory or Antipyret ic ascorbic acid (vitamin C) 500 mg tablet 03-28 00:00: 00 Yes [id number] 1 tablet BEDTIME 1 tablet BEDTIME (route: oral) Med Classific ation: Electroly te Balance-N utritiona l Products baclofen 10 mg tablet 03-28 00:00: 00 Yes [id number] 1 tablet BEDTIME 1 tablet BEDTIME (route: oral) Med Classific ation: Locomotor System calcium carbonate 750 mg-simethic one 80 mg chewable tablet 03-28 00:00: 00 Yes [id number] 1 tablet BEDTIME 1 tablet BEDTIME (route: oral) Med Classific ation: Gastroint estinal Therapy Agents docusate sodium 100 mg capsule 03-28 00:00: 00 Yes [id number] 100 mg 2 TIMES DAILY 100 mg 2 TIMES DAILY (route: oral) Med Classific ation: Gastroint estinal Therapy Agents omeprazole 20 mg capsule,del ayed release 03-28 00:00: 00 Yes [id number] 20 mg DAILY 20 mg DAILY (route: oral) Med Classific ation: Gastroint estinal Therapy Agents pantoprazol e 40 mg tablet,bridget yed release 03-28 00:00: 00 05-18 23:59 :00 No [id number] 1 tablet DAILY 1 tablet DAILY (route: oral) Med Classific ation: Gastroint estinal Therapy Agents simvastatin 10 mg tablet 03-28 00:00: 00 Yes [id number] 1 tablet BEDTIME 1 tablet BEDTIME (route: oral) Med Classific ation: Cardiovas cular Therapy Agents spironolact one 50 mg tablet 03-28 00:00: 00 Yes [id number] 2 tablet DAILY 2 tablet DAILY (route: oral) Med Classific ation: Cardiovas cular Therapy Agents terazosin 10 mg capsule 03-28 00:00: 00 Yes [id number] 1 capsule BEDTIME 1 capsule BEDTIME (route: oral) Med Classific ation: Cardiovas cular Therapy Agents thiamine HCl (vitamin B1) 100 mg capsule 03-28 00:00: 00 Yes [id number] 1 capsule BEDTIME 1 capsule BEDTIME (route: oral) Med Classific ation: Electroly te Balance-N utritiona l Products tolvaptan 30 mg tablet 03-28 00:00: 00 Yes [id number] 1 tablet DAILY 1 tablet DAILY (route: oral) Med Classific ation: Cardiovas cular Therapy Agents oxycodone 5 mg tablet 04-27 00:00: 00 05-18 23:59 :00 No [id number] 1 tablet EVERY 6 HOURS 1 tablet EVERY 6 HOURS (route: oral) Med Classific ation: Analgesic , Anti-infl ammatory or Antipyret ic oxycodone 5 mg tablet 8- 00:00: 00 Yes [id number] 1 tablet EVERY 4-6 HOURS NEEDED 1 tablet EVERY 4-6 HOURS NEEDED (route: oral) Med Classific ation: Analgesic , Anti-infl ammatory or Antipyret ic Jardiance 10 mg tablet 4-01 00:00: 00 Yes [id number] 1 tablet DAILY 1 tablet DAILY (route: oral) Med Classific ation: Endocrine Miralax 17 gram/dose oral powder 2-03 00:00: 00 Yes [id number] 17 gram 2 TIMES DAILY 17 gram 2 TIMES DAILY (route: oral) Med Classific ation: Gastroint estinal Therapy Agents torsemide 20 mg tablet 7-02 00:00: 00 Yes [id number] 1 tablet DAILY 1 tablet DAILY (route: oral) Med Classific ation: Cardiovas cular Therapy Agents tramadol 50 mg tablet - 00:00: 00 Yes [id number] 1 tablet EVERY 6 HOURS 1 tablet [...] MAINTAIN SITUATIONAL AWARENESS AND WILL NOTIFY CLINICAL MEAT PRESS OPERATOR AND PHYSICIAN/PROVIDER WITH ANY CHANGE IN CONDITION. [code = SKILLED NURSE TO PERFORM ENVIRONMENTAL SAFETY RISK ASSESSMENT AND FALL RISK ASSESSMENT AND PROVIDE INSTRUCTION TO IMPLEMENT ENVIRONMENTAL SAFETY AND FALL PREVENTION STRATEGIES THROUGHOUT THE CERTIFICATION PERIOD. SKILLED NURSE WILL MAINTAIN SITUATIONAL AWARENESS AND WILL NOTIFY CLINICAL MEAT PRESS OPERATOR AND PHYSICIAN/PROVIDER WITH ANY CHANGE IN CONDITION.] [...] TINETTI SCORE LESS THAN 19/30, 30 SECOND [id number] SCORE LESS THAN 6, AND DEMONSTRATES IMPAIRED ABILITY TO AMBULATE HOUSEHOLD DISTANCES EVIDENCED BY TUG SCORE GREATER THAN 30 SECONDS, HEP ESTABLISHED WITH PATIENT TO INCLUDE ABDOMINAL BRACING PERFORMED IN SUPINE, UTILIZING LOG ROLLING TECHNIQUES LEFT AND RIGHT SIDES WITH ABDOMINAL BRACING WITH EMPHASIS ON SPINE PRECAUTIONS, AND PARTIAL [id number] TRANSFER TRAINING PERFORMED WITH EMPHASIS ON HIP HINGING/MINIMIZING BENDING/LIFTING/TWISTING FOR MAINTAINING COMFORT, PATIENT HAS NO FORMAL SPINE PRECAUTIONS HOWEVER WILL BENEFIT FROM EDUCATION ON SPINE PRECAUTIONS FOR PAIN MANAGEMENT. PATIENT ABLE TO IMPROVE PAIN LEVELS FROM 9/10 DECREASED TO 6/10 BY END OF VISIT. PATIENT FRUSTRATED AND REPORTING THAT HE HAS HAD PAIN CONTROL ISSUES, REPORTS THAT BLOCK MACHINE OPERATOR AND PCP OFFICE OR BOTH UNWILLING TO [...] TINETTI SCORE LESS THAN 19/30, 30 SECOND [id number] SCORE LESS THAN 6, AND DEMONSTRATES IMPAIRED ABILITY TO AMBULATE HOUSEHOLD DISTANCES EVIDENCED BY TUG SCORE GREATER THAN 30 SECONDS, HEP ESTABLISHED WITH PATIENT TO INCLUDE ABDOMINAL BRACING PERFORMED IN SUPINE, UTILIZING LOG ROLLING TECHNIQUES LEFT AND RIGHT SIDES WITH ABDOMINAL BRACING WITH EMPHASIS ON SPINE PRECAUTIONS, AND PARTIAL [id number] TRANSFER TRAINING PERFORMED WITH EMPHASIS ON HIP HINGING/MINIMIZING BENDING/LIFTING/TWISTING FOR MAINTAINING COMFORT, PATIENT HAS NO FORMAL SPINE PRECAUTIONS HOWEVER WILL BENEFIT FROM EDUCATION ON SPINE PRECAUTIONS FOR PAIN MANAGEMENT. PATIENT ABLE TO IMPROVE PAIN LEVELS FROM 9/10 DECREASED TO 6/10 BY END OF VISIT. PATIENT FRUSTRATED AND REPORTING THAT HE HAS HAD PAIN CONTROL ISSUES, REPORTS THAT BLOCK MACHINE OPERATOR AND PCP OFFICE OR BOTH UNWILLING TO [...] CARE WILL BE ESTABLISHED THAT MEETS PATIENT'S LONGTERM NEEDS AND INCLUDES PATIENT GOAL FOR HOME [...] End Date/Time Encounter Type Admission Type Attending [facility] Care Department Encounter ID Discharge Date Discharge Status Discharge Condition Discharge Reason Percent Goals Met 2025-06-05 00:00:00 2025-08-03 00:00:00 Outpatient RECERTIFIC HORTENCIA [facility] [id number]
--- OUTSIDE RECORDS SUMMARY | 2025-08-02 19:00 | XMS_ITS | Clinical Summary ---
Author Organization Unknown Care Team Providers Care Retail Visual Merchandiser Name Role Phone MONIQUE WILSON, CAMERON Unavailable Unavailable DELIA JUDDN, NATALIO Unavailable Unavailable MARÍA SIGNAL INSPECTOR, HUSSEIN Unavailable Unavailable HUNTER PT, HORTENCIA Unavailable Unavailable SAMARIA RN, ZACH Unavailable Unavailable Payers Payer Name Policy Type Policy Number Effective Date Expira tion Date MEDICARE - [place] [id number] Problems Condition Name Condition Details Condition Category [...] 09-07 00:00: 00 ATHSCL HEART DISEASE OF [place] CORONARY ARTERY W/O ANG PCTRS Active 09-07 [...] 03-31 00:00: 00 05-29 23:59 :00 No [id number] unit 4 TIMES DAILY [id number] unit 4 TIMES DAILY (route: oral) Med Classific ation: Mouth-Thr oat-Denta l - Preparati ons clotrimazol e 10 mg addison 03-21 00:00: 00 05-18 23:59 :00 No [id number] Per instruc tions 5 TIMES A DAY Per instructio ns 5 TIMES A DAY (route: mucous membrane) Med Classific ation: Mouth-Thr oat-Denta l - Preparati ons Vyndamax 61 mg capsule 03-20 00:00: 00 Yes [id number] 1 capsule EVERY AM 1 capsule EVERY AM (route: oral) Med Classific ation: Endocrine acetaminoph en 500 mg capsule 03-28 00:00: 00 Yes [id number] 2 capsule EVERY 6 HOURS 2 capsule EVERY 6 HOURS (route: oral) Med Classific ation: Analgesic , Anti-infl ammatory or Antipyret ic ascorbic acid (vitamin C) 500 mg tablet 03-28 00:00: 00 Yes [id number] 1 tablet BEDTIME 1 tablet BEDTIME (route: oral) Med Classific ation: Electroly te Balance-N utritiona l Products baclofen 10 mg tablet 03-28 00:00: 00 Yes [id number] 1 tablet BEDTIME 1 tablet BEDTIME (route: oral) Med Classific ation: Locomotor System calcium carbonate 750 mg-simethic one 80 mg chewable tablet 03-28 00:00: 00 Yes [id number] 1 tablet BEDTIME 1 tablet BEDTIME (route: oral) Med Classific ation: Gastroint estinal Therapy Agents docusate sodium 100 mg capsule 03-28 00:00: 00 Yes [id number] 100 mg 2 TIMES DAILY 100 mg 2 TIMES DAILY (route: oral) Med Classific ation: Gastroint estinal Therapy Agents omeprazole 20 mg capsule,del ayed release 03-28 00:00: 00 Yes [id number] 20 mg DAILY 20 mg DAILY (route: oral) Med Classific ation: Gastroint estinal Therapy Agents pantoprazol e 40 mg tablet,bridget yed release 03-28 00:00: 00 05-18 23:59 :00 No [id number] 1 tablet DAILY 1 tablet DAILY (route: oral) Med Classific ation: Gastroint estinal Therapy Agents simvastatin 10 mg tablet 03-28 00:00: 00 Yes [id number] 1 tablet BEDTIME 1 tablet BEDTIME (route: oral) Med Classific ation: Cardiovas cular Therapy Agents spironolact one 50 mg tablet 03-28 00:00: 00 Yes [id number] 2 tablet DAILY 2 tablet DAILY (route: oral) Med Classific ation: Cardiovas cular Therapy Agents terazosin 10 mg capsule 03-28 00:00: 00 Yes [id number] 1 capsule BEDTIME 1 capsule BEDTIME (route: oral) Med Classific ation: Cardiovas cular Therapy Agents thiamine HCl (vitamin B1) 100 mg capsule 03-28 00:00: 00 Yes [id number] 1 capsule BEDTIME 1 capsule BEDTIME (route: oral) Med Classific ation: Electroly te Balance-N utritiona l Products tolvaptan 30 mg tablet 03-28 00:00: 00 Yes [id number] 1 tablet DAILY 1 tablet DAILY (route: oral) Med Classific ation: Cardiovas cular Therapy Agents oxycodone 5 mg tablet 04-27 00:00: 00 05-18 23:59 :00 No [id number] 1 tablet EVERY 6 HOURS 1 tablet EVERY 6 HOURS (route: oral) Med Classific ation: Analgesic , Anti-infl ammatory or Antipyret ic oxycodone 5 mg tablet 8- 00:00: 00 Yes [id number] 1 tablet EVERY 4-6 HOURS NEEDED 1 tablet EVERY 4-6 HOURS NEEDED (route: oral) Med Classific ation: Analgesic , Anti-infl ammatory or Antipyret ic Jardiance 10 mg tablet 4-01 00:00: 00 Yes [id number] 1 tablet DAILY 1 tablet DAILY (route: oral) Med Classific ation: Endocrine Miralax 17 gram/dose oral powder 2-03 00:00: 00 Yes [id number] 17 gram 2 TIMES DAILY 17 gram 2 TIMES DAILY (route: oral) Med Classific ation: Gastroint estinal Therapy Agents torsemide 20 mg tablet 7-02 00:00: 00 Yes [id number] 1 tablet DAILY 1 tablet DAILY (route: oral) Med Classific ation: Cardiovas cular Therapy Agents tramadol 50 mg tablet - 00:00: 00 Yes [id number] 1 tablet EVERY 6 HOURS 1 tablet [...] REDUCE AVOIDABLE HOSPITALIZATION.] Future Scheduled Test PATIENT MARTNIEZ S A RISK OF HOSPITALIZATION AND ED [...] MAINTAIN SITUATIONAL AWARENESS AND WILL NOTIFY CLINICAL ENTRY LEVEL INSTALLATION TECHNICIAN AND PHYSICIAN/PROVIDER WITH ANY CHANGE IN CONDITION. [code = SKILLED NURSE TO PERFORM ENVIRONMENTAL SAFETY RISK ASSESSMENT AND FALL RISK ASSESSMENT AND PROVIDE INSTRUCTION TO IMPLEMENT ENVIRONMENTAL SAFETY AND FALL PREVENTION STRATEGIES THROUGHOUT THE CERTIFICATION PERIOD. SKILLED NURSE WILL MAINTAIN SITUATIONAL AWARENESS AND WILL NOTIFY CLINICAL ENTRY LEVEL INSTALLATION TECHNICIAN AND PHYSICIAN/PROVIDER WITH ANY CHANGE IN CONDITION.] [...] TINETTI SCORE LESS THAN 19/30, 30 SECOND [id number] SCORE LESS THAN 6, AND DEMONSTRATES IMPAIRED ABILITY TO AMBULATE HOUSEHOLD DISTANCES EVIDENCED BY TUG SCORE GREATER THAN 30 SECONDS, HEP ESTABLISHED WITH PATIENT TO INCLUDE ABDOMINAL BRACING PERFORMED IN SUPINE, UTILIZING LOG ROLLING TECHNIQUES LEFT AND RIGHT SIDES WITH ABDOMINAL BRACING WITH EMPHASIS ON SPINE PRECAUTIONS, AND PARTIAL [id number]-[id number] TRANSFER TRAINING PERFORMED WITH EMPHASIS ON HIP HINGING/MINIMIZING BENDING/LIFTING/TWISTING FOR MAINTAINING COMFORT, PATIENT HAS NO FORMAL SPINE PRECAUTIONS HOWEVER WILL BENEFIT FROM EDUCATION ON SPINE PRECAUTIONS FOR PAIN MANAGEMENT. PATIENT ABLE TO IMPROVE PAIN LEVELS FROM 9/10 DECREASED TO 6/10 BY END OF VISIT. PATIENT FRUSTRATED AND REPORTING THAT HE HAS HAD PAIN CONTROL ISSUES, REPORTS THAT DUDE RANCH MANAGER AND PCP OFFICE OR BOTH UNWILLING TO [...] TINETTI SCORE LESS THAN 19/30, 30 SECOND [id number] SCORE LESS THAN 6, AND DEMONSTRATES IMPAIRED ABILITY TO AMBULATE HOUSEHOLD DISTANCES EVIDENCED BY TUG SCORE GREATER THAN 30 SECONDS, HEP ESTABLISHED WITH PATIENT TO INCLUDE ABDOMINAL BRACING PERFORMED IN SUPINE, UTILIZING LOG ROLLING TECHNIQUES LEFT AND RIGHT SIDES WITH ABDOMINAL BRACING WITH EMPHASIS ON SPINE PRECAUTIONS, AND PARTIAL HYS-AZ-[id number] TRANSFER TRAINING PERFORMED WITH EMPHASIS ON HIP HINGING/MINIMIZING BENDING/LIFTING/TWISTING FOR MAINTAINING COMFORT, PATIENT HAS NO FORMAL SPINE PRECAUTIONS HOWEVER WILL BENEFIT FROM EDUCATION ON SPINE PRECAUTIONS FOR PAIN MANAGEMENT. PATIENT ABLE TO IMPROVE PAIN LEVELS FROM 9/10 DECREASED TO 6/10 BY END OF VISIT. PATIENT FRUSTRATED AND REPORTING THAT HE HAS HAD PAIN CONTROL ISSUES, REPORTS THAT DUDE RANCH MANAGER AND PCP OFFICE OR BOTH UNWILLING TO [...] CARE WILL BE ESTABLISHED THAT MEETS PATIENT'S USP NEEDS AND INCLUDES PATIENT GOAL FOR HOME [...] End Date/Time Encounter Type Admission Type Attending [facility] Care Department Encounter ID Discharge Date Discharge Status Discharge Condition Discharge Reason Percent Goals Met 2025-06-05 00:00:00 2025-08-03 00:00:00 Outpatient RECERTIFIC HORTENCIA MARISCAL [facility] [id number] 66.67
--- OUTSIDE RECORDS SUMMARY | 2025-08-02 19:00 | XMS_ITS | Clinical Summary ---
Author Organization Unknown Care Team Providers Care Wet Process Head Miller Name Role Phone MONIQUE WILSON, CAMERON Unavailable Unavailable DELIA JUDDN, NATALIO Unavailable Unavailable MARÍA CONTRACT FORESTER, HUSSEIN Unavailable Unavailable HUNTER PT, HORTENCIA Unavailable Unavailable SAMARIA RN, ZACH Unavailable Unavailable Payers Payer Name Policy Type Policy Number Effective Date Expira tion Date [place]IC[place] - [place] [id number] Problems Condition Name Condition Details Condition Category [...] 00:00: 00 ATHSCL HEART DISEASE OF [place] CORONARY ARTERY W/O ANG PCTRS Active 09-07 [...] 03-31 00:00: 00 05-29 23:59 :00 No [id number] unit 4 TIMES DAILY [id number] unit 4 TIMES DAILY (route: oral) Med Classific ation: Mouth-Thr oat-Denta l - Preparati ons clotrimazol e 10 mg addison 03-21 00:00: 00 05-18 23:59 :00 No [id number] Per instruc tions 5 TIMES A DAY Per instructio ns 5 TIMES A DAY (route: mucous membrane) Med Classific ation: Mouth-Thr oat-Denta l - Preparati ons Vyndamax 61 mg capsule 03-20 00:00: 00 Yes [id number] 1 capsule EVERY AM 1 capsule EVERY AM (route: oral) Med Classific ation: Endocrine acetaminoph en 500 mg capsule 03-28 00:00: 00 Yes [id number] 2 capsule EVERY 6 HOURS 2 capsule EVERY 6 HOURS (route: oral) Med Classific ation: Analgesic , Anti-infl ammatory or Antipyret ic ascorbic acid (vitamin C) 500 mg tablet 03-28 00:00: 00 Yes [id number] 1 tablet BEDTIME 1 tablet BEDTIME (route: oral) Med Classific ation: Electroly te Balance-N utritiona l Products baclofen 10 mg tablet 03-28 00:00: 00 Yes [id number] 1 tablet BEDTIME 1 tablet BEDTIME (route: oral) Med Classific ation: Locomotor System calcium carbonate 750 mg-simethic one 80 mg chewable tablet 03-28 00:00: 00 Yes [id number] 1 tablet BEDTIME 1 tablet BEDTIME (route: oral) Med Classific ation: Gastroint estinal Therapy Agents docusate sodium 100 mg capsule 03-28 00:00: 00 Yes [id number] 100 mg 2 TIMES DAILY 100 mg 2 TIMES DAILY (route: oral) Med Classific ation: Gastroint estinal Therapy Agents omeprazole 20 mg capsule,del ayed release 03-28 00:00: 00 Yes [id number] 20 mg DAILY 20 mg DAILY (route: oral) Med Classific ation: Gastroint estinal Therapy Agents pantoprazol e 40 mg tablet,bridget yed release 03-28 00:00: 00 05-18 23:59 :00 No [id number] 1 tablet DAILY 1 tablet DAILY (route: oral) Med Classific ation: Gastroint estinal Therapy Agents simvastatin 10 mg tablet 03-28 00:00: 00 Yes [id number] 1 tablet BEDTIME 1 tablet BEDTIME (route: oral) Med Classific ation: Cardiovas cular Therapy Agents spironolact one 50 mg tablet 03-28 00:00: 00 Yes [id number] 2 tablet DAILY 2 tablet DAILY (route: oral) Med Classific ation: Cardiovas cular Therapy Agents terazosin 10 mg capsule 03-28 00:00: 00 Yes [id number] 1 capsule BEDTIME 1 capsule BEDTIME (route: oral) Med Classific ation: Cardiovas cular Therapy Agents thiamine HCl (vitamin B1) 100 mg capsule 03-28 00:00: 00 Yes [id number] 1 capsule BEDTIME 1 capsule BEDTIME (route: oral) Med Classific ation: Electroly te Balance-N utritiona l Products tolvaptan 30 mg tablet 03-28 00:00: 00 Yes [id number] 1 tablet DAILY 1 tablet DAILY (route: oral) Med Classific ation: Cardiovas cular Therapy Agents oxycodone 5 mg tablet 04-27 00:00: 00 05-18 23:59 :00 No [id number] 1 tablet EVERY 6 HOURS 1 tablet EVERY 6 HOURS (route: oral) Med Classific ation: Analgesic , Anti-infl ammatory or Antipyret ic oxycodone 5 mg tablet 8- 00:00: 00 Yes [id number] 1 tablet EVERY 4-6 HOURS NEEDED 1 tablet EVERY 4-6 HOURS NEEDED (route: oral) Med Classific ation: Analgesic , Anti-infl ammatory or Antipyret ic Jardiance 10 mg tablet 4-01 00:00: 00 Yes [id number] 1 tablet DAILY 1 tablet DAILY (route: oral) Med Classific ation: Endocrine Miralax 17 gram/dose oral powder 2-03 00:00: 00 Yes [id number] 17 gram 2 TIMES DAILY 17 gram 2 TIMES DAILY (route: oral) Med Classific ation: Gastroint estinal Therapy Agents torsemide 20 mg tablet 7-02 00:00: 00 Yes [id number] 1 tablet DAILY 1 tablet DAILY (route: oral) Med Classific ation: Cardiovas cular Therapy Agents tramadol 50 mg tablet - 00:00: 00 Yes [id number] 1 tablet EVERY 6 HOURS 1 tablet [...] MAINTAIN SITUATIONAL AWARENESS AND WILL NOTIFY CLINICAL MOTOR VEHICLE EXAMINER AND PHYSICIAN/PROVIDER WITH ANY CHANGE IN CONDITION. [code = SKILLED NURSE TO PERFORM ENVIRONMENTAL SAFETY RISK ASSESSMENT AND FALL RISK ASSESSMENT AND PROVIDE INSTRUCTION TO IMPLEMENT ENVIRONMENTAL SAFETY AND FALL PREVENTION STRATEGIES THROUGHOUT THE CERTIFICATION PERIOD. SKILLED NURSE WILL MAINTAIN SITUATIONAL AWARENESS AND WILL NOTIFY CLINICAL MOTOR VEHICLE EXAMINER AND PHYSICIAN/PROVIDER WITH ANY CHANGE IN [...] TINETTI SCORE LESS THAN 19/30, 30 SECOND [id number] SCORE LESS THAN 6, AND DEMONSTRATES IMPAIRED ABILITY TO AMBULATE HOUSEHOLD DISTANCES EVIDENCED BY TUG SCORE GREATER THAN 30 SECONDS, HEP ESTABLISHED WITH PATIENT TO INCLUDE ABDOMINAL BRACING PERFORMED IN SUPINE, UTILIZING LOG ROLLING TECHNIQUES LEFT AND RIGHT SIDES WITH ABDOMINAL BRACING WITH EMPHASIS ON SPINE PRECAUTIONS, AND PARTIAL [id number] TRANSFER TRAINING PERFORMED WITH EMPHASIS ON HIP HINGING/MINIMIZING BENDING/LIFTING/TWISTING FOR MAINTAINING COMFORT, PATIENT HAS NO FORMAL SPINE PRECAUTIONS HOWEVER WILL BENEFIT FROM EDUCATION ON SPINE PRECAUTIONS FOR PAIN MANAGEMENT. PATIENT ABLE TO IMPROVE PAIN LEVELS FROM 9/10 DECREASED TO 6/10 BY END OF VISIT. PATIENT FRUSTRATED AND REPORTING THAT HE HAS HAD PAIN CONTROL ISSUES, REPORTS THAT DUPLICATING MACHINE SERVICER AND PCP OFFICE OR BOTH UNWILLING TO [...] TINETTI SCORE LESS THAN 19/30, 30 SECOND [id number] SCORE LESS THAN 6, AND DEMONSTRATES IMPAIRED ABILITY TO AMBULATE HOUSEHOLD DISTANCES EVIDENCED BY TUG SCORE GREATER THAN 30 SECONDS, HEP ESTABLISHED WITH PATIENT TO INCLUDE ABDOMINAL BRACING PERFORMED IN SUPINE, UTILIZING LOG ROLLING TECHNIQUES LEFT AND RIGHT SIDES WITH ABDOMINAL BRACING WITH EMPHASIS ON SPINE PRECAUTIONS, AND PARTIAL [id number]-MH-[id number] TRANSFER TRAINING PERFORMED WITH EMPHASIS ON HIP HINGING/MINIMIZING BENDING/LIFTING/TWISTING FOR MAINTAINING COMFORT, PATIENT HAS NO FORMAL SPINE PRECAUTIONS HOWEVER WILL BENEFIT FROM EDUCATION ON SPINE PRECAUTIONS FOR PAIN MANAGEMENT. PATIENT ABLE TO IMPROVE PAIN LEVELS FROM 9/10 DECREASED TO 6/10 BY END OF VISIT. PATIENT FRUSTRATED AND REPORTING THAT HE HAS HAD PAIN CONTROL ISSUES, REPORTS THAT DUPLICATING MACHINE SERVICER AND PCP OFFICE OR BOTH UNWILLING TO [...] End Date/Time Encounter Type Admission Type Attending [facility] Care Department Encounter ID Discharge Date Discharge Status Discharge Condition Discharge Reason Percent Goals Met 2025-06-05 00:00:00 2025-08-03 00:00:00 Outpatient RECERTIFIC HORTENCIA MARISCAL [facility] [id number]
--- OUTSIDE RECORDS SUMMARY | 2025-08-02 19:00 | XMS_ITS | Clinical Summary ---
Author Organization Unknown Care Team Providers Care Coal Miner Name Role Phone MONIQUE WILSON, CAMERON Unavailable Unavailable DELIA JUDDN, NATALIO Unavailable Unavailable MARÍA LINE CREW SUPERVISOR, HUSSEIN Unavailable Unavailable HUNTER PT, HORTENCIA Unavailable Unavailable SAMARIA RN, ZACH Unavailable Unavailable Payers Payer Name Policy Type Policy Number Effective Date Expira tion Date MEDICARE - NGS [place] - PD [id number] Problems Condition Name Condition Details Condition Category [...] 09-07 00:00: 00 ATHSCL HEART DISEASE OF [place] CORONARY ARTERY W/O ANG PCTRS Active 09-07 [...] 03-31 00:00: 00 05-29 23:59 :00 No [id number] unit 4 TIMES DAILY [id number] unit 4 TIMES DAILY (route: oral) Med Classific ation: Mouth-Thr oat-Denta l - Preparati ons clotrimazol e 10 mg addison 03-21 00:00: 00 05-18 23:59 :00 No [id number] Per instruc tions 5 TIMES A DAY Per instructio ns 5 TIMES A DAY (route: mucous membrane) Med Classific ation: Mouth-Thr oat-Denta l - Preparati ons Vyndamax 61 mg capsule 03-20 00:00: 00 Yes [id number] 1 capsule EVERY AM 1 capsule EVERY AM (route: oral) Med Classific ation: Endocrine acetaminoph en 500 mg capsule 03-28 00:00: 00 Yes [id number] 2 capsule EVERY 6 HOURS 2 capsule EVERY 6 HOURS (route: oral) Med Classific ation: Analgesic , Anti-infl ammatory or Antipyret ic ascorbic acid (vitamin C) 500 mg tablet 03-28 00:00: 00 Yes [id number] 1 tablet BEDTIME 1 tablet BEDTIME (route: oral) Med Classific ation: Electroly te Balance-N utritiona l Products baclofen 10 mg tablet 03-28 00:00: 00 Yes [id number] 1 tablet BEDTIME 1 tablet BEDTIME (route: oral) Med Classific ation: Locomotor System calcium carbonate 750 mg-simethic one 80 mg chewable tablet 03-28 00:00: 00 Yes [id number] 1 tablet BEDTIME 1 tablet BEDTIME (route: oral) Med Classific ation: Gastroint estinal Therapy Agents docusate sodium 100 mg capsule 03-28 00:00: 00 Yes [id number] 100 mg 2 TIMES DAILY 100 mg 2 TIMES DAILY (route: oral) Med Classific ation: Gastroint estinal Therapy Agents omeprazole 20 mg capsule,del ayed release 03-28 00:00: 00 Yes [id number] 20 mg DAILY 20 mg DAILY (route: oral) Med Classific ation: Gastroint estinal Therapy Agents pantoprazol e 40 mg tablet,bridget yed release 03-28 00:00: 00 05-18 23:59 :00 No [id number] 1 tablet DAILY 1 tablet DAILY (route: oral) Med Classific ation: Gastroint estinal Therapy Agents simvastatin 10 mg tablet 03-28 00:00: 00 Yes [id number] 1 tablet BEDTIME 1 tablet BEDTIME (route: oral) Med Classific ation: Cardiovas cular Therapy Agents spironolact one 50 mg tablet 03-28 00:00: 00 Yes [id number] 2 tablet DAILY 2 tablet DAILY (route: oral) Med Classific ation: Cardiovas cular Therapy Agents terazosin 10 mg capsule 03-28 00:00: 00 Yes [id number] 1 capsule BEDTIME 1 capsule BEDTIME (route: oral) Med Classific ation: Cardiovas cular Therapy Agents thiamine HCl (vitamin B1) 100 mg capsule 03-28 00:00: 00 Yes [id number] 1 capsule BEDTIME 1 capsule BEDTIME (route: oral) Med Classific ation: Electroly te Balance-N utritiona l Products tolvaptan 30 mg tablet 03-28 00:00: 00 Yes [id number] 1 tablet DAILY 1 tablet DAILY (route: oral) Med Classific ation: Cardiovas cular Therapy Agents oxycodone 5 mg tablet 04-27 00:00: 00 05-18 23:59 :00 No [id number] 1 tablet EVERY 6 HOURS 1 tablet EVERY 6 HOURS (route: oral) Med Classific ation: Analgesic , Anti-infl ammatory or Antipyret ic oxycodone 5 mg tablet 8- 00:00: 00 Yes [id number] 1 tablet EVERY 4-6 HOURS NEEDED 1 tablet EVERY 4-6 HOURS NEEDED (route: oral) Med Classific ation: Analgesic , Anti-infl ammatory or Antipyret ic Jardiance 10 mg tablet 4-01 00:00: 00 Yes [id number] 1 tablet DAILY 1 tablet DAILY (route: oral) Med Classific ation: Endocrine Miralax 17 gram/dose oral powder 2-03 00:00: 00 Yes [id number] 17 gram 2 TIMES DAILY 17 gram 2 TIMES DAILY (route: oral) Med Classific ation: Gastroint estinal Therapy Agents torsemide 20 mg tablet 7-02 00:00: 00 Yes [id number] 1 tablet DAILY 1 tablet DAILY (route: oral) Med Classific ation: Cardiovas cular Therapy Agents tramadol 50 mg tablet - 00:00: 00 Yes [id number] 1 tablet EVERY 6 HOURS 1 tablet [...] MAINTAIN SITUATIONAL AWARENESS AND WILL NOTIFY CLINICAL LOKIE DRIVER AND PHYSICIAN/PROVIDER WITH ANY CHANGE IN CONDITION. [code = SKILLED NURSE TO PERFORM ENVIRONMENTAL SAFETY RISK ASSESSMENT AND FALL RISK ASSESSMENT AND PROVIDE INSTRUCTION TO IMPLEMENT ENVIRONMENTAL SAFETY AND FALL PREVENTION STRATEGIES THROUGHOUT THE CERTIFICATION PERIOD. SKILLED NURSE WILL MAINTAIN SITUATIONAL AWARENESS AND WILL NOTIFY CLINICAL LOKIE DRIVER AND PHYSICIAN/PROVIDER WITH ANY CHANGE IN CONDITION.] [...] TINETTI SCORE LESS THAN 19/30, 30 SECOND [id number] SCORE LESS THAN 6, AND DEMONSTRATES IMPAIRED ABILITY TO AMBULATE HOUSEHOLD DISTANCES EVIDENCED BY TUG SCORE GREATER THAN 30 SECONDS, HEP ESTABLISHED WITH PATIENT TO INCLUDE ABDOMINAL BRACING PERFORMED IN SUPINE, UTILIZING LOG ROLLING TECHNIQUES LEFT AND RIGHT SIDES WITH ABDOMINAL BRACING WITH EMPHASIS ON SPINE PRECAUTIONS, AND PARTIAL [id number] TRANSFER TRAINING PERFORMED WITH EMPHASIS ON HIP HINGING/MINIMIZING BENDING/LIFTING/TWISTING FOR MAINTAINING COMFORT, PATIENT HAS NO FORMAL SPINE PRECAUTIONS HOWEVER WILL BENEFIT FROM EDUCATION ON SPINE PRECAUTIONS FOR PAIN MANAGEMENT. PATIENT ABLE TO IMPROVE PAIN LEVELS FROM 9/10 DECREASED TO 6/10 BY END OF VISIT. PATIENT FRUSTRATED AND REPORTING THAT HE HAS HAD PAIN CONTROL ISSUES, REPORTS THAT FULL TIME PARAMEDIC AND PCP OFFICE OR BOTH UNWILLING TO [...] TINETTI SCORE LESS THAN 19/30, 30 SECOND [id number] SCORE LESS THAN 6, AND DEMONSTRATES IMPAIRED ABILITY TO AMBULATE HOUSEHOLD DISTANCES EVIDENCED BY TUG SCORE GREATER THAN 30 SECONDS, HEP ESTABLISHED WITH PATIENT TO INCLUDE ABDOMINAL BRACING PERFORMED IN SUPINE, UTILIZING LOG ROLLING TECHNIQUES LEFT AND RIGHT SIDES WITH ABDOMINAL BRACING WITH EMPHASIS ON SPINE PRECAUTIONS, AND PARTIAL [id number] TRANSFER TRAINING PERFORMED WITH EMPHASIS ON HIP HINGING/MINIMIZING BENDING/LIFTING/TWISTING FOR MAINTAINING COMFORT, PATIENT HAS NO FORMAL SPINE PRECAUTIONS HOWEVER WILL BENEFIT FROM EDUCATION ON SPINE PRECAUTIONS FOR PAIN MANAGEMENT. PATIENT ABLE TO IMPROVE PAIN LEVELS FROM 9/10 DECREASED TO 6/10 BY END OF VISIT. PATIENT FRUSTRATED AND REPORTING THAT HE HAS HAD PAIN CONTROL ISSUES, REPORTS THAT FULL TIME PARAMEDIC AND PCP OFFICE OR BOTH UNWILLING TO [...] CARE WILL BE ESTABLISHED THAT MEETS PATIENT'S INTERMEDIATE NEEDS AND INCLUDES PATIENT GOAL FOR HOME [...] End Date/Time Encounter Type Admission Type Attending [facility] Care Department Encounter ID Discharge Date Discharge Status Discharge Condition Discharge Reason Percent Goals Met 2025-06-05 00:00:00 2025-08-03 00:00:00 Outpatient RECERTIFIC HORTENCIA MARISCAL [facility] [id number] 66.67
--- OUTSIDE RECORDS SUMMARY | 2025-08-02 19:00 | XMS_ITS | Clinical Summary ---
Author Organization Unknown Care Team Providers Care Shingle Weaver Name Role Phone MONIQUE WILSON, CAMERON Unavailable Unavailable DELIA JUDDN, NATALIO Unavailable Unavailable MARÍA TALKING [employer] LIBRARY CLERK, HUSSEIN Unavailable Unavailable HUNTER PT, HORTENCIA Unavailable Unavailable SAMARIA RN, ZACH Unavailable Unavailable Payers Payer Name Policy Type Policy Number Effective Date Expira tion Date MEDICARE - [place] - [place] [id number] Problems Condition Name Condition Details Condition Category [...] 09-07 00:00: 00 ATHSCL HEART DISEASE OF [place] CORONARY ARTERY W/O ANG PCTRS Active 09-07 [...] 03-31 00:00: 00 05-29 23:59 :00 No [id number] unit 4 TIMES DAILY [id number] unit 4 TIMES DAILY (route: oral) Med Classific ation: Mouth-Thr oat-Denta l - Preparati ons clotrimazol e 10 mg addison 03-21 00:00: 00 05-18 23:59 :00 No [id number] Per instruc tions 5 TIMES A DAY Per instructio ns 5 TIMES A DAY (route: mucous membrane) Med Classific ation: Mouth-Thr oat-Denta l - Preparati ons Vyndamax 61 mg capsule 03-20 00:00: 00 Yes [id number] 1 capsule EVERY AM 1 capsule EVERY AM (route: oral) Med Classific ation: Endocrine acetaminoph en 500 mg capsule 03-28 00:00: 00 Yes [id number] 2 capsule EVERY 6 HOURS 2 capsule EVERY 6 HOURS (route: oral) Med Classific ation: Analgesic , Anti-infl ammatory or Antipyret ic ascorbic acid (vitamin C) 500 mg tablet 03-28 00:00: 00 Yes [id number] 1 tablet BEDTIME 1 tablet BEDTIME (route: oral) Med Classific ation: Electroly te Balance-N utritiona l Products baclofen 10 mg tablet 03-28 00:00: 00 Yes [id number] 1 tablet BEDTIME 1 tablet BEDTIME (route: oral) Med Classific ation: Locomotor System calcium carbonate 750 mg-simethic one 80 mg chewable tablet 03-28 00:00: 00 Yes [id number] 1 tablet BEDTIME 1 tablet BEDTIME (route: oral) Med Classific ation: Gastroint estinal Therapy Agents docusate sodium 100 mg capsule 03-28 00:00: 00 Yes [id number] 100 mg 2 TIMES DAILY 100 mg 2 TIMES DAILY (route: oral) Med Classific ation: Gastroint estinal Therapy Agents omeprazole 20 mg capsule,del ayed release 03-28 00:00: 00 Yes [id number] 20 mg DAILY 20 mg DAILY (route: oral) Med Classific ation: Gastroint estinal Therapy Agents pantoprazol e 40 mg tablet,bridget yed release 03-28 00:00: 00 05-18 23:59 :00 No [id number] 1 tablet DAILY 1 tablet DAILY (route: oral) Med Classific ation: Gastroint estinal Therapy Agents simvastatin 10 mg tablet 03-28 00:00: 00 Yes [id number] 1 tablet BEDTIME 1 tablet BEDTIME (route: oral) Med Classific ation: Cardiovas cular Therapy Agents spironolact one 50 mg tablet 03-28 00:00: 00 Yes [id number] 2 tablet DAILY 2 tablet DAILY (route: oral) Med Classific ation: Cardiovas cular Therapy Agents terazosin 10 mg capsule 03-28 00:00: 00 Yes [id number] 1 capsule BEDTIME 1 capsule BEDTIME (route: oral) Med Classific ation: Cardiovas cular Therapy Agents thiamine HCl (vitamin B1) 100 mg capsule 03-28 00:00: 00 Yes [id number] 1 capsule BEDTIME 1 capsule BEDTIME (route: oral) Med Classific ation: Electroly te Balance-N utritiona l Products tolvaptan 30 mg tablet 03-28 00:00: 00 Yes [id number] 1 tablet DAILY 1 tablet DAILY (route: oral) Med Classific ation: Cardiovas cular Therapy Agents oxycodone 5 mg tablet 04-27 00:00: 00 05-18 23:59 :00 No [id number] 1 tablet EVERY 6 HOURS 1 tablet EVERY 6 HOURS (route: oral) Med Classific ation: Analgesic , Anti-infl ammatory or Antipyret ic oxycodone 5 mg tablet 8- 00:00: 00 Yes [id number] 1 tablet EVERY 4-6 HOURS NEEDED 1 tablet EVERY 4-6 HOURS NEEDED (route: oral) Med Classific ation: Analgesic , Anti-infl ammatory or Antipyret ic Jardiance 10 mg tablet 4-01 00:00: 00 Yes [id number] 1 tablet DAILY 1 tablet DAILY (route: oral) Med Classific ation: Endocrine Miralax 17 gram/dose oral powder 2-03 00:00: 00 Yes [id number] 17 gram 2 TIMES DAILY 17 gram 2 TIMES DAILY (route: oral) Med Classific ation: Gastroint estinal Therapy Agents torsemide 20 mg tablet 7-02 00:00: 00 Yes [id number] 1 tablet DAILY 1 tablet DAILY (route: oral) Med Classific ation: Cardiovas cular Therapy Agents tramadol 50 mg tablet - 00:00: 00 Yes [id number] 1 tablet EVERY 6 HOURS 1 tablet [...] MAINTAIN SITUATIONAL AWARENESS AND WILL NOTIFY CLINICAL CLINICAL TRIALS NURSE AND PHYSICIAN/PROVIDER WITH ANY CHANGE IN CONDITION. [code = SKILLED NURSE TO PERFORM ENVIRONMENTAL SAFETY RISK ASSESSMENT AND FALL RISK ASSESSMENT AND PROVIDE INSTRUCTION TO IMPLEMENT ENVIRONMENTAL SAFETY AND FALL PREVENTION STRATEGIES THROUGHOUT THE CERTIFICATION PERIOD. SKILLED NURSE WILL MAINTAIN SITUATIONAL AWARENESS AND WILL NOTIFY CLINICAL CLINICAL TRIALS NURSE AND PHYSICIAN/PROVIDER WITH ANY CHANGE IN CONDITION.] [...] TINETTI SCORE LESS THAN 19/30, 30 SECOND [id number] SCORE LESS THAN 6, AND DEMONSTRATES IMPAIRED ABILITY TO AMBULATE HOUSEHOLD DISTANCES EVIDENCED BY TUG SCORE GREATER THAN 30 SECONDS, HEP ESTABLISHED WITH PATIENT TO INCLUDE ABDOMINAL BRACING PERFORMED IN SUPINE, UTILIZING LOG ROLLING TECHNIQUES LEFT AND RIGHT SIDES WITH ABDOMINAL BRACING WITH EMPHASIS ON SPINE PRECAUTIONS, AND PARTIAL [id number] TRANSFER TRAINING PERFORMED WITH EMPHASIS ON HIP HINGING/MINIMIZING BENDING/LIFTING/TWISTING FOR MAINTAINING COMFORT, PATIENT HAS NO FORMAL SPINE PRECAUTIONS HOWEVER WILL BENEFIT FROM EDUCATION ON SPINE PRECAUTIONS FOR PAIN MANAGEMENT. PATIENT ABLE TO IMPROVE PAIN LEVELS FROM 9/10 DECREASED TO 6/10 BY END OF VISIT. PATIENT FRUSTRATED AND REPORTING THAT HE HAS HAD PAIN CONTROL ISSUES, REPORTS THAT QUILLER RUNNER AND PCP OFFICE OR BOTH UNWILLING TO [...] TINETTI SCORE LESS THAN 19/30, 30 SECOND [id number] SCORE LESS THAN 6, AND DEMONSTRATES IMPAIRED ABILITY TO AMBULATE HOUSEHOLD DISTANCES EVIDENCED BY TUG SCORE GREATER THAN 30 SECONDS, HEP ESTABLISHED WITH PATIENT TO INCLUDE ABDOMINAL BRACING PERFORMED IN SUPINE, UTILIZING LOG ROLLING TECHNIQUES LEFT AND RIGHT SIDES WITH ABDOMINAL BRACING WITH EMPHASIS ON SPINE PRECAUTIONS, AND PARTIAL [id number] TRANSFER TRAINING PERFORMED WITH EMPHASIS ON HIP HINGING/MINIMIZING BENDING/LIFTING/TWISTING FOR MAINTAINING COMFORT, PATIENT HAS NO FORMAL SPINE PRECAUTIONS HOWEVER WILL BENEFIT FROM EDUCATION ON SPINE PRECAUTIONS FOR PAIN MANAGEMENT. PATIENT ABLE TO IMPROVE PAIN LEVELS FROM 9/10 DECREASED TO 6/10 BY END OF VISIT. PATIENT FRUSTRATED AND REPORTING THAT HE HAS HAD PAIN CONTROL ISSUES, REPORTS THAT QUILLER RUNNER AND PCP OFFICE OR BOTH UNWILLING TO [...] CARE WILL BE ESTABLISHED THAT MEETS PATIENT'S GROUP HOME NEEDS AND INCLUDES PATIENT GOAL FOR HOME [...] End Date/Time Encounter Type Admission Type Attending [facility] Care Department Encounter ID Discharge Date Discharge Status Discharge Condition Discharge Reason Percent Goals Met 2025-06-05 00:00:00 2025-08-03 00:00:00 Outpatient RECERTIFIC HORTENCIA MARISCAL [facility] [id number] 66.67
--- OUTSIDE RECORDS SUMMARY | 2025-08-02 19:00 | XMS_ITS | Clinical Summary ---
Author Organization Unknown Care Team Providers Care Gag Writer Name Role Phone MONIQUE WILSON, CAMERON Unavailable Unavailable DELIA JUDDN, NATALIO Unavailable Unavailable MARÍA CLOSED CIRCUIT SCREEN WATCHER, HUSSEIN Unavailable Unavailable HUNTER PT, HORTENCIA Unavailable Unavailable SAMARIA RN, ZACH Unavailable Unavailable Payers Payer Name Policy Type Policy Number Effective Date Expira tion Date MEDICARE - NGS [place] - PD [id number] Problems Condition Name Condition Details Condition Category [...] 09-07 00:00: 00 ATHSCL HEART DISEASE OF [place] CORONARY ARTERY W/O ANG PCTRS Active 09-07 [...] 03-31 00:00: 00 05-29 23:59 :00 No [id number] unit 4 TIMES DAILY [id number] unit 4 TIMES DAILY (route: oral) Med Classific ation: Mouth-Thr oat-Denta l - Preparati ons clotrimazol e 10 mg addison 03-21 00:00: 00 05-18 23:59 :00 No [id number] Per instruc tions 5 TIMES A DAY Per instructio ns 5 TIMES A DAY (route: mucous membrane) Med Classific ation: Mouth-Thr oat-Denta l - Preparati ons Vyndamax 61 mg capsule 03-20 00:00: 00 Yes [id number] 1 capsule EVERY AM 1 capsule EVERY AM (route: oral) Med Classific ation: Endocrine acetaminoph en 500 mg capsule 03-28 00:00: 00 Yes [id number] 2 capsule EVERY 6 HOURS 2 capsule EVERY 6 HOURS (route: oral) Med Classific ation: Analgesic , Anti-infl ammatory or Antipyret ic ascorbic acid (vitamin C) 500 mg tablet 03-28 00:00: 00 Yes [id number] 1 tablet BEDTIME 1 tablet BEDTIME (route: oral) Med Classific ation: Electroly te Balance-N utritiona l Products baclofen 10 mg tablet 03-28 00:00: 00 Yes [id number] 1 tablet BEDTIME 1 tablet BEDTIME (route: oral) Med Classific ation: Locomotor System calcium carbonate 750 mg-simethic one 80 mg chewable tablet 03-28 00:00: 00 Yes [id number] 1 tablet BEDTIME 1 tablet BEDTIME (route: oral) Med Classific ation: Gastroint estinal Therapy Agents docusate sodium 100 mg capsule 03-28 00:00: 00 Yes [id number] 100 mg 2 TIMES DAILY 100 mg 2 TIMES DAILY (route: oral) Med Classific ation: Gastroint estinal Therapy Agents omeprazole 20 mg capsule,del ayed release 03-28 00:00: 00 Yes [id number] 20 mg DAILY 20 mg DAILY (route: oral) Med Classific ation: Gastroint estinal Therapy Agents pantoprazol e 40 mg tablet,bridget yed release 03-28 00:00: 00 05-18 23:59 :00 No [id number] 1 tablet DAILY 1 tablet DAILY (route: oral) Med Classific ation: Gastroint estinal Therapy Agents simvastatin 10 mg tablet 03-28 00:00: 00 Yes [id number] 1 tablet BEDTIME 1 tablet BEDTIME (route: oral) Med Classific ation: Cardiovas cular Therapy Agents spironolact one 50 mg tablet 03-28 00:00: 00 Yes [id number] 2 tablet DAILY 2 tablet DAILY (route: oral) Med Classific ation: Cardiovas cular Therapy Agents terazosin 10 mg capsule 03-28 00:00: 00 Yes [id number] 1 capsule BEDTIME 1 capsule BEDTIME (route: oral) Med Classific ation: Cardiovas cular Therapy Agents thiamine HCl (vitamin B1) 100 mg capsule 03-28 00:00: 00 Yes [id number] 1 capsule BEDTIME 1 capsule BEDTIME (route: oral) Med Classific ation: Electroly te Balance-N utritiona l Products tolvaptan 30 mg tablet 03-28 00:00: 00 Yes [id number] 1 tablet DAILY 1 tablet DAILY (route: oral) Med Classific ation: Cardiovas cular Therapy Agents oxycodone 5 mg tablet 04-27 00:00: 00 05-18 23:59 :00 No [id number] 1 tablet EVERY 6 HOURS 1 tablet EVERY 6 HOURS (route: oral) Med Classific ation: Analgesic , Anti-infl ammatory or Antipyret ic oxycodone 5 mg tablet 8- 00:00: 00 Yes [id number] 1 tablet EVERY 4-6 HOURS NEEDED 1 tablet EVERY 4-6 HOURS NEEDED (route: oral) Med Classific ation: Analgesic , Anti-infl ammatory or Antipyret ic Jardiance 10 mg tablet 4-01 00:00: 00 Yes [id number] 1 tablet DAILY 1 tablet DAILY (route: oral) Med Classific ation: Endocrine Miralax 17 gram/dose oral powder 2-03 00:00: 00 Yes [id number] 17 gram 2 TIMES DAILY 17 gram 2 TIMES DAILY (route: oral) Med Classific ation: Gastroint estinal Therapy Agents torsemide 20 mg tablet 7-02 00:00: 00 Yes [id number] 1 tablet DAILY 1 tablet DAILY (route: oral) Med Classific ation: Cardiovas cular Therapy Agents tramadol 50 mg tablet - 00:00: 00 Yes [id number] 1 tablet EVERY 6 HOURS 1 tablet [...] MAINTAIN SITUATIONAL AWARENESS AND WILL NOTIFY CLINICAL PROJECT MANAGEMENT AND PHYSICIAN/PROVIDER WITH ANY CHANGE IN CONDITION. [code = SKILLED NURSE TO PERFORM ENVIRONMENTAL SAFETY RISK ASSESSMENT AND FALL RISK ASSESSMENT AND PROVIDE INSTRUCTION TO IMPLEMENT ENVIRONMENTAL SAFETY AND FALL PREVENTION STRATEGIES THROUGHOUT THE CERTIFICATION PERIOD. SKILLED NURSE WILL MAINTAIN SITUATIONAL AWARENESS AND WILL NOTIFY CLINICAL PROJECT MANAGEMENT AND PHYSICIAN/PROVIDER WITH ANY CHANGE IN CONDITION.] [...] TINETTI SCORE LESS THAN 19/30, 30 SECOND [id number] SCORE LESS THAN 6, AND DEMONSTRATES IMPAIRED ABILITY TO AMBULATE HOUSEHOLD DISTANCES EVIDENCED BY TUG SCORE GREATER THAN 30 SECONDS, HEP ESTABLISHED WITH PATIENT TO INCLUDE ABDOMINAL BRACING PERFORMED IN SUPINE, UTILIZING LOG ROLLING TECHNIQUES LEFT AND RIGHT SIDES WITH ABDOMINAL BRACING WITH EMPHASIS ON SPINE PRECAUTIONS, AND PARTIAL [id number]-[id number] TRANSFER TRAINING PERFORMED WITH EMPHASIS ON HIP HINGING/MINIMIZING BENDING/LIFTING/TWISTING FOR MAINTAINING COMFORT, PATIENT HAS NO FORMAL SPINE PRECAUTIONS HOWEVER WILL BENEFIT FROM EDUCATION ON SPINE PRECAUTIONS FOR PAIN MANAGEMENT. PATIENT ABLE TO IMPROVE PAIN LEVELS FROM 9/10 DECREASED TO 6/10 BY END OF VISIT. PATIENT FRUSTRATED AND REPORTING THAT HE HAS HAD PAIN CONTROL ISSUES, REPORTS THAT TANK WORKER AND PCP OFFICE OR BOTH UNWILLING TO [...] TINETTI SCORE LESS THAN 19/30, 30 SECOND [id number] SCORE LESS THAN 6, AND DEMONSTRATES IMPAIRED ABILITY TO AMBULATE HOUSEHOLD DISTANCES EVIDENCED BY TUG SCORE GREATER THAN 30 SECONDS, HEP ESTABLISHED WITH PATIENT TO INCLUDE ABDOMINAL BRACING PERFORMED IN SUPINE, UTILIZING LOG ROLLING TECHNIQUES LEFT AND RIGHT SIDES WITH ABDOMINAL BRACING WITH EMPHASIS ON SPINE PRECAUTIONS, AND PARTIAL EOY-RH-UKQBJ TRANSFER TRAINING PERFORMED WITH EMPHASIS ON HIP HINGING/MINIMIZING BENDING/LIFTING/TWISTING FOR MAINTAINING COMFORT, PATIENT HAS NO FORMAL SPINE PRECAUTIONS HOWEVER WILL BENEFIT FROM EDUCATION ON SPINE PRECAUTIONS FOR PAIN MANAGEMENT. PATIENT ABLE TO IMPROVE PAIN LEVELS FROM 9/10 DECREASED TO 6/10 BY END OF VISIT. PATIENT FRUSTRATED AND REPORTING THAT HE HAS HAD PAIN CONTROL ISSUES, REPORTS THAT TANK WORKER AND PCP OFFICE OR BOTH UNWILLING TO [...] End Date/Time Encounter Type Admission Type Attending [facility] Care Department Encounter ID Discharge Date Discharge Status Discharge Condition Discharge Reason Percent Goals Met 2025-06-05 00:00:00 2025-08-03 00:00:00 Outpatient RECERTIFIC HORTENCIA [facility]ISCAL [facility] [id number] 66.67
--- OUTSIDE RECORDS SUMMARY | 2025-08-02 19:00 | XMS_ITS | Clinical Summary ---
Author Organization Unknown Care Team Providers Care Emissions Engineer Name Role Phone MONIQUE WILSON, CAMERON Unavailable Unavailable DELIA JUDDN, NATALIO Unavailable Unavailable MARÍA DUCT LAYER SUPERVISOR, HUSSEIN Unavailable Unavailable HUNTER PT, HORTENCIA Unavailable Unavailable SAMARIA RN, ZACH Unavailable Unavailable Payers Payer Name Policy Type Policy Number Effective Date Expira tion Date MEDICARE - [place] - [place] [id number] Problems Condition Name Condition Details Condition Category [...] 09-07 00:00: 00 ATHSCL HEART DISEASE OF [place] CORONARY ARTERY W/O ANG PCTRS Active 09-07 [...] 03-31 00:00: 00 05-29 23:59 :00 No [id number] unit 4 TIMES DAILY [id number] unit 4 TIMES DAILY (route: oral) Med Classific ation: Mouth-Thr oat-Denta l - Preparati ons clotrimazol e 10 mg addison 03-21 00:00: 00 05-18 23:59 :00 No [id number] Per instruc tions 5 TIMES A DAY Per instructio ns 5 TIMES A DAY (route: mucous membrane) Med Classific ation: Mouth-Thr oat-Denta l - Preparati ons Vyndamax 61 mg capsule 03-20 00:00: 00 Yes [id number] 1 capsule EVERY AM 1 capsule EVERY AM (route: oral) Med Classific ation: Endocrine acetaminoph en 500 mg capsule 03-28 00:00: 00 Yes [id number] 2 capsule EVERY 6 HOURS 2 capsule EVERY 6 HOURS (route: oral) Med Classific ation: Analgesic , Anti-infl ammatory or Antipyret ic ascorbic acid (vitamin C) 500 mg tablet 03-28 00:00: 00 Yes [id number] 1 tablet BEDTIME 1 tablet BEDTIME (route: oral) Med Classific ation: Electroly te Balance-N utritiona l Products baclofen 10 mg tablet 03-28 00:00: 00 Yes [id number] 1 tablet BEDTIME 1 tablet BEDTIME (route: oral) Med Classific ation: Locomotor System calcium carbonate 750 mg-simethic one 80 mg chewable tablet 03-28 00:00: 00 Yes [id number] 1 tablet BEDTIME 1 tablet BEDTIME (route: oral) Med Classific ation: Gastroint estinal Therapy Agents docusate sodium 100 mg capsule 03-28 00:00: 00 Yes [id number] 100 mg 2 TIMES DAILY 100 mg 2 TIMES DAILY (route: oral) Med Classific ation: Gastroint estinal Therapy Agents omeprazole 20 mg capsule,del ayed release 03-28 00:00: 00 Yes [id number] 20 mg DAILY 20 mg DAILY (route: oral) Med Classific ation: Gastroint estinal Therapy Agents pantoprazol e 40 mg tablet,bridget yed release 03-28 00:00: 00 05-18 23:59 :00 No [id number] 1 tablet DAILY 1 tablet DAILY (route: oral) Med Classific ation: Gastroint estinal Therapy Agents simvastatin 10 mg tablet 03-28 00:00: 00 Yes [id number] 1 tablet BEDTIME 1 tablet BEDTIME (route: oral) Med Classific ation: Cardiovas cular Therapy Agents spironolact one 50 mg tablet 03-28 00:00: 00 Yes [id number] 2 tablet DAILY 2 tablet DAILY (route: oral) Med Classific ation: Cardiovas cular Therapy Agents terazosin 10 mg capsule 03-28 00:00: 00 Yes [id number] 1 capsule BEDTIME 1 capsule BEDTIME (route: oral) Med Classific ation: Cardiovas cular Therapy Agents thiamine HCl (vitamin B1) 100 mg capsule 03-28 00:00: 00 Yes [id number] 1 capsule BEDTIME 1 capsule BEDTIME (route: oral) Med Classific ation: Electroly te Balance-N utritiona l Products tolvaptan 30 mg tablet 03-28 00:00: 00 Yes [id number] 1 tablet DAILY 1 tablet DAILY (route: oral) Med Classific ation: Cardiovas cular Therapy Agents oxycodone 5 mg tablet 04-27 00:00: 00 05-18 23:59 :00 No [id number] 1 tablet EVERY 6 HOURS 1 tablet EVERY 6 HOURS (route: oral) Med Classific ation: Analgesic , Anti-infl ammatory or Antipyret ic oxycodone 5 mg tablet 8- 00:00: 00 Yes [id number] 1 tablet EVERY 4-6 HOURS NEEDED 1 tablet EVERY 4-6 HOURS NEEDED (route: oral) Med Classific ation: Analgesic , Anti-infl ammatory or Antipyret ic Jardiance 10 mg tablet 4-01 00:00: 00 Yes [id number] 1 tablet DAILY 1 tablet DAILY (route: oral) Med Classific ation: Endocrine Miralax 17 gram/dose oral powder 2-03 00:00: 00 Yes [id number] 17 gram 2 TIMES DAILY 17 gram 2 TIMES DAILY (route: oral) Med Classific ation: Gastroint estinal Therapy Agents torsemide 20 mg tablet 7-02 00:00: 00 Yes [id number] 1 tablet DAILY 1 tablet DAILY (route: oral) Med Classific ation: Cardiovas cular Therapy Agents tramadol 50 mg tablet - 00:00: 00 Yes [id number] 1 tablet EVERY 6 HOURS 1 tablet [...] MAINTAIN SITUATIONAL AWARENESS AND WILL NOTIFY CLINICAL OUTSIDE CONTRACTOR SALES AND PHYSICIAN/PROVIDER WITH ANY CHANGE IN CONDITION. [code = SKILLED NURSE TO PERFORM ENVIRONMENTAL SAFETY RISK ASSESSMENT AND FALL RISK ASSESSMENT AND PROVIDE INSTRUCTION TO IMPLEMENT ENVIRONMENTAL SAFETY AND FALL PREVENTION STRATEGIES THROUGHOUT THE CERTIFICATION PERIOD. SKILLED NURSE WILL MAINTAIN SITUATIONAL AWARENESS AND WILL NOTIFY CLINICAL OUTSIDE CONTRACTOR SALES AND PHYSICIAN/PROVIDER WITH ANY CHANGE IN CONDITION.] [...] TINETTI SCORE LESS THAN 19/30, 30 SECOND [id number] SCORE LESS THAN 6, AND DEMONSTRATES IMPAIRED ABILITY TO AMBULATE HOUSEHOLD DISTANCES EVIDENCED BY TUG SCORE GREATER THAN 30 SECONDS, HEP ESTABLISHED WITH PATIENT TO INCLUDE ABDOMINAL BRACING PERFORMED IN SUPINE, UTILIZING LOG ROLLING TECHNIQUES LEFT AND RIGHT SIDES WITH ABDOMINAL BRACING WITH EMPHASIS ON SPINE PRECAUTIONS, AND PARTIAL [id number] TRANSFER TRAINING PERFORMED WITH EMPHASIS ON HIP HINGING/MINIMIZING BENDING/LIFTING/TWISTING FOR MAINTAINING COMFORT, PATIENT HAS NO FORMAL SPINE PRECAUTIONS HOWEVER WILL BENEFIT FROM EDUCATION ON SPINE PRECAUTIONS FOR PAIN MANAGEMENT. PATIENT ABLE TO IMPROVE PAIN LEVELS FROM 9/10 DECREASED TO 6/10 BY END OF VISIT. PATIENT FRUSTRATED AND REPORTING THAT HE HAS HAD PAIN CONTROL ISSUES, REPORTS THAT LEAF STRIPPER AND PCP OFFICE OR BOTH UNWILLING TO [...] TINETTI SCORE LESS THAN 19/30, 30 SECOND [id number] SCORE LESS THAN 6, AND DEMONSTRATES IMPAIRED ABILITY TO AMBULATE HOUSEHOLD DISTANCES EVIDENCED BY TUG SCORE GREATER THAN 30 SECONDS, HEP ESTABLISHED WITH PATIENT TO INCLUDE ABDOMINAL BRACING PERFORMED IN SUPINE, UTILIZING LOG ROLLING TECHNIQUES LEFT AND RIGHT SIDES WITH ABDOMINAL BRACING WITH EMPHASIS ON SPINE PRECAUTIONS, AND PARTIAL [id number] TRANSFER TRAINING PERFORMED WITH EMPHASIS ON HIP HINGING/MINIMIZING BENDING/LIFTING/TWISTING FOR MAINTAINING COMFORT, PATIENT HAS NO FORMAL SPINE PRECAUTIONS HOWEVER WILL BENEFIT FROM EDUCATION ON SPINE PRECAUTIONS FOR PAIN MANAGEMENT. PATIENT ABLE TO IMPROVE PAIN LEVELS FROM 9/10 DECREASED TO 6/10 BY END OF VISIT. PATIENT FRUSTRATED AND REPORTING THAT HE HAS HAD PAIN CONTROL ISSUES, REPORTS THAT LEAF STRIPPER AND PCP OFFICE OR BOTH UNWILLING TO [...] CARE WILL BE ESTABLISHED THAT MEETS PATIENT'S PRISON NEEDS AND INCLUDES PATIENT GOAL FOR HOME [...] End Date/Time Encounter Type Admission Type Attending [facility] Care Department Encounter ID Discharge Date Discharge Status Discharge Condition Discharge Reason Percent Goals Met 2025-06-05 00:00:00 2025-08-03 00:00:00 Outpatient RECERTIFIC HORTENCIA MARISCAL [facility] [id number] 66.67
--- OUTSIDE RECORDS SUMMARY | 2025-08-02 19:00 | XMS_ITS | Clinical Summary ---
Author Organization Unknown Care Team Providers Care Psychology Fellow Name Role Phone MONIQUE WILSON, CAMERON Unavailable Unavailable DELIA JUDDN, NATALIO Unavailable Unavailable MARÍA DIRECTOR STRATEGIC ACCOUNT MANAGEMENT, HUSSEIN Unavailable Unavailable HUNTER PT, HORTENCIA Unavailable Unavailable SAMARIA RN, ZACH Unavailable Unavailable Payers Payer Name Policy Type Policy Number Effective Date Expira tion Date MEDICARE - [place] [id number] Problems Condition Name Condition Details Condition Category [...] 09-07 00:00: 00 ATHSCL HEART DISEASE OF [place] CORONARY ARTERY W/O ANG PCTRS Active 09-07 [...] 03-31 00:00: 00 05-29 23:59 :00 No [id number] unit 4 TIMES DAILY [id number] unit 4 TIMES DAILY (route: oral) Med Classific ation: Mouth-Thr oat-Denta l - Preparati ons clotrimazol e 10 mg addison 03-21 00:00: 00 05-18 23:59 :00 No [id number] Per instruc tions 5 TIMES A DAY Per instructio ns 5 TIMES A DAY (route: mucous membrane) Med Classific ation: Mouth-Thr oat-Denta l - Preparati ons Vyndamax 61 mg capsule 03-20 00:00: 00 Yes [id number] 1 capsule EVERY AM 1 capsule EVERY AM (route: oral) Med Classific ation: Endocrine acetaminoph en 500 mg capsule 03-28 00:00: 00 Yes [id number] 2 capsule EVERY 6 HOURS 2 capsule EVERY 6 HOURS (route: oral) Med Classific ation: Analgesic , Anti-infl ammatory or Antipyret ic ascorbic acid (vitamin C) 500 mg tablet 03-28 00:00: 00 Yes [id number] 1 tablet BEDTIME 1 tablet BEDTIME (route: oral) Med Classific ation: Electroly te Balance-N utritiona l Products baclofen 10 mg tablet 03-28 00:00: 00 Yes [id number] 1 tablet BEDTIME 1 tablet BEDTIME (route: oral) Med Classific ation: Locomotor System calcium carbonate 750 mg-simethic one 80 mg chewable tablet 03-28 00:00: 00 Yes [id number] 1 tablet BEDTIME 1 tablet BEDTIME (route: oral) Med Classific ation: Gastroint estinal Therapy Agents docusate sodium 100 mg capsule 03-28 00:00: 00 Yes [id number] 100 mg 2 TIMES DAILY 100 mg 2 TIMES DAILY (route: oral) Med Classific ation: Gastroint estinal Therapy Agents omeprazole 20 mg capsule,del ayed release 03-28 00:00: 00 Yes [id number] 20 mg DAILY 20 mg DAILY (route: oral) Med Classific ation: Gastroint estinal Therapy Agents pantoprazol e 40 mg tablet,bridget yed release 03-28 00:00: 00 05-18 23:59 :00 No [id number] 1 tablet DAILY 1 tablet DAILY (route: oral) Med Classific ation: Gastroint estinal Therapy Agents simvastatin 10 mg tablet 03-28 00:00: 00 Yes [id number] 1 tablet BEDTIME 1 tablet BEDTIME (route: oral) Med Classific ation: Cardiovas cular Therapy Agents spironolact one 50 mg tablet 03-28 00:00: 00 Yes [id number] 2 tablet DAILY 2 tablet DAILY (route: oral) Med Classific ation: Cardiovas cular Therapy Agents terazosin 10 mg capsule 03-28 00:00: 00 Yes [id number] 1 capsule BEDTIME 1 capsule BEDTIME (route: oral) Med Classific ation: Cardiovas cular Therapy Agents thiamine HCl (vitamin B1) 100 mg capsule 03-28 00:00: 00 Yes [id number] 1 capsule BEDTIME 1 capsule BEDTIME (route: oral) Med Classific ation: Electroly te Balance-N utritiona l Products tolvaptan 30 mg tablet 03-28 00:00: 00 Yes [id number] 1 tablet DAILY 1 tablet DAILY (route: oral) Med Classific ation: Cardiovas cular Therapy Agents oxycodone 5 mg tablet 04-27 00:00: 00 05-18 23:59 :00 No [id number] 1 tablet EVERY 6 HOURS 1 tablet EVERY 6 HOURS (route: oral) Med Classific ation: Analgesic , Anti-infl ammatory or Antipyret ic oxycodone 5 mg tablet 8- 00:00: 00 Yes [id number] 1 tablet EVERY 4-6 HOURS NEEDED 1 tablet EVERY 4-6 HOURS NEEDED (route: oral) Med Classific ation: Analgesic , Anti-infl ammatory or Antipyret ic Jardiance 10 mg tablet 4-01 00:00: 00 Yes [id number] 1 tablet DAILY 1 tablet DAILY (route: oral) Med Classific ation: Endocrine Miralax 17 gram/dose oral powder 2-03 00:00: 00 Yes [id number] 17 gram 2 TIMES DAILY 17 gram 2 TIMES DAILY (route: oral) Med Classific ation: Gastroint estinal Therapy Agents torsemide 20 mg tablet 7-02 00:00: 00 Yes [id number] 1 tablet DAILY 1 tablet DAILY (route: oral) Med Classific ation: Cardiovas cular Therapy Agents tramadol 50 mg tablet - 00:00: 00 Yes [id number] 1 tablet EVERY 6 HOURS 1 tablet [...] MAINTAIN SITUATIONAL AWARENESS AND WILL NOTIFY CLINICAL ACETYLENE TORCH BURNER AND PHYSICIAN/PROVIDER WITH ANY CHANGE IN CONDITION. [code = SKILLED NURSE TO PERFORM ENVIRONMENTAL SAFETY RISK ASSESSMENT AND FALL RISK ASSESSMENT AND PROVIDE INSTRUCTION TO IMPLEMENT ENVIRONMENTAL SAFETY AND FALL PREVENTION STRATEGIES THROUGHOUT THE CERTIFICATION PERIOD. SKILLED NURSE WILL MAINTAIN SITUATIONAL AWARENESS AND WILL NOTIFY CLINICAL ACETYLENE TORCH BURNER AND PHYSICIAN/PROVIDER WITH ANY CHANGE IN CONDITION.] [...] TINETTI SCORE LESS THAN 19/30, 30 SECOND [id number] SCORE LESS THAN 6, AND DEMONSTRATES IMPAIRED ABILITY TO AMBULATE HOUSEHOLD DISTANCES EVIDENCED BY TUG SCORE GREATER THAN 30 SECONDS, HEP ESTABLISHED WITH PATIENT TO INCLUDE ABDOMINAL BRACING PERFORMED IN SUPINE, UTILIZING LOG ROLLING TECHNIQUES LEFT AND RIGHT SIDES WITH ABDOMINAL BRACING WITH EMPHASIS ON SPINE PRECAUTIONS, AND PARTIAL [id number] TRANSFER TRAINING PERFORMED WITH EMPHASIS ON HIP HINGING/MINIMIZING BENDING/LIFTING/TWISTING FOR MAINTAINING COMFORT, PATIENT HAS NO FORMAL SPINE PRECAUTIONS HOWEVER WILL BENEFIT FROM EDUCATION ON SPINE PRECAUTIONS FOR PAIN MANAGEMENT. PATIENT ABLE TO IMPROVE PAIN LEVELS FROM 9/10 DECREASED TO 6/10 BY END OF VISIT. PATIENT FRUSTRATED AND REPORTING THAT HE HAS HAD PAIN CONTROL ISSUES, REPORTS THAT SIMULATION DEVELOPER AND PCP OFFICE OR BOTH UNWILLING TO [...] TINETTI SCORE LESS THAN 19/30, 30 SECOND [id number] SCORE LESS THAN 6, AND DEMONSTRATES IMPAIRED ABILITY TO AMBULATE HOUSEHOLD DISTANCES EVIDENCED BY TUG SCORE GREATER THAN 30 SECONDS, HEP ESTABLISHED WITH PATIENT TO INCLUDE ABDOMINAL BRACING PERFORMED IN SUPINE, UTILIZING LOG ROLLING TECHNIQUES LEFT AND RIGHT SIDES WITH ABDOMINAL BRACING WITH EMPHASIS ON SPINE PRECAUTIONS, AND PARTIAL [id number] TRANSFER TRAINING PERFORMED WITH EMPHASIS ON HIP HINGING/MINIMIZING BENDING/LIFTING/TWISTING FOR MAINTAINING COMFORT, PATIENT HAS NO FORMAL SPINE PRECAUTIONS HOWEVER WILL BENEFIT FROM EDUCATION ON SPINE PRECAUTIONS FOR PAIN MANAGEMENT. PATIENT ABLE TO IMPROVE PAIN LEVELS FROM 9/10 DECREASED TO 6/10 BY END OF VISIT. PATIENT FRUSTRATED AND REPORTING THAT HE HAS HAD PAIN CONTROL ISSUES, REPORTS THAT SIMULATION DEVELOPER AND PCP OFFICE OR BOTH UNWILLING TO [...] CARE WILL BE ESTABLISHED THAT MEETS PATIENT'S LONG-TERM NEEDS AND INCLUDES PATIENT GOAL FOR HOME [...] End Date/Time Encounter Type Admission Type Attending [facility] Care Department Encounter ID Discharge Date Discharge Status Discharge Condition Discharge Reason Percent Goals Met 2025-06-05 00:00:00 2025-08-03 00:00:00 Outpatient RECERTIFIC HORTENCIA MARISCAL [facility] [id number]
--- OUTSIDE RECORDS SUMMARY | 2025-08-02 19:00 | XMS_ITS | Clinical Summary ---
Author Organization Unknown Care Team Providers Care Informatics Scientist Name Role Phone MONIQUE WILSON, CAMERON Unavailable Unavailable DELIA JUDDN, NATALIO Unavailable Unavailable MARÍA PERISHABLE FREIGHT INSPECTOR, HUSSEIN Unavailable Unavailable HUNTER PT, HORTENCIA Unavailable Unavailable SAMARIA RN, ZACH Unavailable Unavailable Payers Payer Name Policy Type Policy Number Effective Date Expira tion Date MEDICARE - NGS [place] - PD [id number] Problems Condition Name Condition Details Condition Category [...] 09-07 00:00: 00 ATHSCL HEART DISEASE OF [place] CORONARY ARTERY W/O ANG PCTRS Active 09-07 [...] 03-31 00:00: 00 05-29 23:59 :00 No [id number] unit 4 TIMES DAILY [id number] unit 4 TIMES DAILY (route: oral) Med Classific ation: Mouth-Thr oat-Denta l - Preparati ons clotrimazol e 10 mg addison 03-21 00:00: 00 05-18 23:59 :00 No [id number] Per instruc tions 5 TIMES A DAY Per instructio ns 5 TIMES A DAY (route: mucous membrane) Med Classific ation: Mouth-Thr oat-Denta l - Preparati ons Vyndamax 61 mg capsule 03-20 00:00: 00 Yes [id number] 1 capsule EVERY AM 1 capsule EVERY AM (route: oral) Med Classific ation: Endocrine acetaminoph en 500 mg capsule 03-28 00:00: 00 Yes [id number] 2 capsule EVERY 6 HOURS 2 capsule EVERY 6 HOURS (route: oral) Med Classific ation: Analgesic , Anti-infl ammatory or Antipyret ic ascorbic acid (vitamin C) 500 mg tablet 03-28 00:00: 00 Yes [id number] 1 tablet BEDTIME 1 tablet BEDTIME (route: oral) Med Classific ation: Electroly te Balance-N utritiona l Products baclofen 10 mg tablet 03-28 00:00: 00 Yes [id number] 1 tablet BEDTIME 1 tablet BEDTIME (route: oral) Med Classific ation: Locomotor System calcium carbonate 750 mg-simethic one 80 mg chewable tablet 03-28 00:00: 00 Yes [id number] 1 tablet BEDTIME 1 tablet BEDTIME (route: oral) Med Classific ation: Gastroint estinal Therapy Agents docusate sodium 100 mg capsule 03-28 00:00: 00 Yes [id number] 100 mg 2 TIMES DAILY 100 mg 2 TIMES DAILY (route: oral) Med Classific ation: Gastroint estinal Therapy Agents omeprazole 20 mg capsule,del ayed release 03-28 00:00: 00 Yes [id number] 20 mg DAILY 20 mg DAILY (route: oral) Med Classific ation: Gastroint estinal Therapy Agents pantoprazol e 40 mg tablet,bridget yed release 03-28 00:00: 00 05-18 23:59 :00 No [id number] 1 tablet DAILY 1 tablet DAILY (route: oral) Med Classific ation: Gastroint estinal Therapy Agents simvastatin 10 mg tablet 03-28 00:00: 00 Yes [id number] 1 tablet BEDTIME 1 tablet BEDTIME (route: oral) Med Classific ation: Cardiovas cular Therapy Agents spironolact one 50 mg tablet 03-28 00:00: 00 Yes [id number] 2 tablet DAILY 2 tablet DAILY (route: oral) Med Classific ation: Cardiovas cular Therapy Agents terazosin 10 mg capsule 03-28 00:00: 00 Yes [id number] 1 capsule BEDTIME 1 capsule BEDTIME (route: oral) Med Classific ation: Cardiovas cular Therapy Agents thiamine HCl (vitamin B1) 100 mg capsule 03-28 00:00: 00 Yes [id number] 1 capsule BEDTIME 1 capsule BEDTIME (route: oral) Med Classific ation: Electroly te Balance-N utritiona l Products tolvaptan 30 mg tablet 03-28 00:00: 00 Yes [id number] 1 tablet DAILY 1 tablet DAILY (route: oral) Med Classific ation: Cardiovas cular Therapy Agents oxycodone 5 mg tablet 04-27 00:00: 00 05-18 23:59 :00 No [id number] 1 tablet EVERY 6 HOURS 1 tablet EVERY 6 HOURS (route: oral) Med Classific ation: Analgesic , Anti-infl ammatory or Antipyret ic oxycodone 5 mg tablet 8- 00:00: 00 Yes [id number] 1 tablet EVERY 4-6 HOURS NEEDED 1 tablet EVERY 4-6 HOURS NEEDED (route: oral) Med Classific ation: Analgesic , Anti-infl ammatory or Antipyret ic Jardiance 10 mg tablet 4-01 00:00: 00 Yes [id number] 1 tablet DAILY 1 tablet DAILY (route: oral) Med Classific ation: Endocrine Miralax 17 gram/dose oral powder 2-03 00:00: 00 Yes [id number] 17 gram 2 TIMES DAILY 17 gram 2 TIMES DAILY (route: oral) Med Classific ation: Gastroint estinal Therapy Agents torsemide 20 mg tablet 7-02 00:00: 00 Yes [id number] 1 tablet DAILY 1 tablet DAILY (route: oral) Med Classific ation: Cardiovas cular Therapy Agents tramadol 50 mg tablet - 00:00: 00 Yes [id number] 1 tablet EVERY 6 HOURS 1 tablet [...] MAINTAIN SITUATIONAL AWARENESS AND WILL NOTIFY CLINICAL NUCLEAR POWERPLANT MECHANIC AND PHYSICIAN/PROVIDER WITH ANY CHANGE IN CONDITION. [code = SKILLED NURSE TO PERFORM ENVIRONMENTAL SAFETY RISK ASSESSMENT AND FALL RISK ASSESSMENT AND PROVIDE INSTRUCTION TO IMPLEMENT ENVIRONMENTAL SAFETY AND FALL PREVENTION STRATEGIES THROUGHOUT THE CERTIFICATION PERIOD. SKILLED NURSE WILL MAINTAIN SITUATIONAL AWARENESS AND WILL NOTIFY CLINICAL NUCLEAR POWERPLANT MECHANIC AND PHYSICIAN/PROVIDER WITH ANY CHANGE IN CONDITION.] [...] TINETTI SCORE LESS THAN 19/30, 30 SECOND [id number] SCORE LESS THAN 6, AND DEMONSTRATES IMPAIRED ABILITY TO AMBULATE HOUSEHOLD DISTANCES EVIDENCED BY TUG SCORE GREATER THAN 30 SECONDS, HEP ESTABLISHED WITH PATIENT TO INCLUDE ABDOMINAL BRACING PERFORMED IN SUPINE, UTILIZING LOG ROLLING TECHNIQUES LEFT AND RIGHT SIDES WITH ABDOMINAL BRACING WITH EMPHASIS ON SPINE PRECAUTIONS, AND PARTIAL [id number] TRANSFER TRAINING PERFORMED WITH EMPHASIS ON HIP HINGING/MINIMIZING BENDING/LIFTING/TWISTING FOR MAINTAINING COMFORT, PATIENT HAS NO FORMAL SPINE PRECAUTIONS HOWEVER WILL BENEFIT FROM EDUCATION ON SPINE PRECAUTIONS FOR PAIN MANAGEMENT. PATIENT ABLE TO IMPROVE PAIN LEVELS FROM 9/10 DECREASED TO 6/10 BY END OF VISIT. PATIENT FRUSTRATED AND REPORTING THAT HE HAS HAD PAIN CONTROL ISSUES, REPORTS THAT MACHINE JOINER CEMENTER AND PCP OFFICE OR BOTH UNWILLING TO [...] TINETTI SCORE LESS THAN 19/30, 30 SECOND [id number] SCORE LESS THAN 6, AND DEMONSTRATES IMPAIRED ABILITY TO AMBULATE HOUSEHOLD DISTANCES EVIDENCED BY TUG SCORE GREATER THAN 30 SECONDS, HEP ESTABLISHED WITH PATIENT TO INCLUDE ABDOMINAL BRACING PERFORMED IN SUPINE, UTILIZING LOG ROLLING TECHNIQUES LEFT AND RIGHT SIDES WITH ABDOMINAL BRACING WITH EMPHASIS ON SPINE PRECAUTIONS, AND PARTIAL [id number] TRANSFER TRAINING PERFORMED WITH EMPHASIS ON HIP HINGING/MINIMIZING BENDING/LIFTING/TWISTING FOR MAINTAINING COMFORT, PATIENT HAS NO FORMAL SPINE PRECAUTIONS HOWEVER WILL BENEFIT FROM EDUCATION ON SPINE PRECAUTIONS FOR PAIN MANAGEMENT. PATIENT ABLE TO IMPROVE PAIN LEVELS FROM 9/10 DECREASED TO 6/10 BY END OF VISIT. PATIENT FRUSTRATED AND REPORTING THAT HE HAS HAD PAIN CONTROL ISSUES, REPORTS THAT MACHINE JOINER CEMENTER AND PCP OFFICE OR BOTH UNWILLING TO [...] CARE WILL BE ESTABLISHED THAT MEETS PATIENT'S [facility] NEEDS AND INCLUDES PATIENT GOAL FOR HOME [...] End Date/Time Encounter Type Admission Type [facility] Department Encounter ID Discharge Date Discharge Status Discharge Condition Discharge Reason Percent Goals Met 2025-06-05 00:00:00 2025-08-03 00:00:00 Outpatient RECERTIFIC HORTENCIA [facility] [id number] 66.67
--- OUTSIDE RECORDS SUMMARY | 2025-08-02 19:00 | XMS_ITS | Clinical Summary ---
Author Organization Unknown Care Team Providers Care Voice Network Engineer Name Role Phone MONIQUE WILSON, CAMERON Unavailable Unavailable DELIA JUDDN, NATALIO Unavailable Unavailable MARÍA ELECTRICAL CONTROLS ENGINEER, HUSSEIN Unavailable Unavailable HUNTER PT, HORTENCIA Unavailable Unavailable SAMARIA RN, ZACH Unavailable Unavailable Payers Payer Name Policy Type Policy Number Effective Date Expira tion Date MEDICARE - [place] - PD [id number] Problems Condition Name Condition Details Condition Category [...] 09-07 00:00: 00 ATHSCL HEART DISEASE OF [place] CORONARY ARTERY W/O ANG PCTRS Active 09-07 [...] 03-31 00:00: 00 05-29 23:59 :00 No [id number] unit 4 TIMES DAILY [id number] unit 4 TIMES DAILY (route: oral) Med Classific ation: Mouth-Thr oat-Denta l - Preparati ons clotrimazol e 10 mg addison 03-21 00:00: 00 05-18 23:59 :00 No [id number] Per instruc tions 5 TIMES A DAY Per instructio ns 5 TIMES A DAY (route: mucous membrane) Med Classific ation: Mouth-Thr oat-Denta l - Preparati ons Vyndamax 61 mg capsule 03-20 00:00: 00 Yes [id number] 1 capsule EVERY AM 1 capsule EVERY AM (route: oral) Med Classific ation: Endocrine acetaminoph en 500 mg capsule 03-28 00:00: 00 Yes [id number] 2 capsule EVERY 6 HOURS 2 capsule EVERY 6 HOURS (route: oral) Med Classific ation: Analgesic , Anti-infl ammatory or Antipyret ic ascorbic acid (vitamin C) 500 mg tablet 03-28 00:00: 00 Yes [id number] 1 tablet BEDTIME 1 tablet BEDTIME (route: oral) Med Classific ation: Electroly te Balance-N utritiona l Products baclofen 10 mg tablet 03-28 00:00: 00 Yes [id number] 1 tablet BEDTIME 1 tablet BEDTIME (route: oral) Med Classific ation: Locomotor System calcium carbonate 750 mg-simethic one 80 mg chewable tablet 03-28 00:00: 00 Yes [id number] 1 tablet BEDTIME 1 tablet BEDTIME (route: oral) Med Classific ation: Gastroint estinal Therapy Agents docusate sodium 100 mg capsule 03-28 00:00: 00 Yes [id number] 100 mg 2 TIMES DAILY 100 mg 2 TIMES DAILY (route: oral) Med Classific ation: Gastroint estinal Therapy Agents omeprazole 20 mg capsule,del ayed release 03-28 00:00: 00 Yes [id number] 20 mg DAILY 20 mg DAILY (route: oral) Med Classific ation: Gastroint estinal Therapy Agents pantoprazol e 40 mg tablet,bridget yed release 03-28 00:00: 00 05-18 23:59 :00 No [id number] 1 tablet DAILY 1 tablet DAILY (route: oral) Med Classific ation: Gastroint estinal Therapy Agents simvastatin 10 mg tablet 03-28 00:00: 00 Yes [id number] 1 tablet BEDTIME 1 tablet BEDTIME (route: oral) Med Classific ation: Cardiovas cular Therapy Agents spironolact one 50 mg tablet 03-28 00:00: 00 Yes [id number] 2 tablet DAILY 2 tablet DAILY (route: oral) Med Classific ation: Cardiovas cular Therapy Agents terazosin 10 mg capsule 03-28 00:00: 00 Yes [id number] 1 capsule BEDTIME 1 capsule BEDTIME (route: oral) Med Classific ation: Cardiovas cular Therapy Agents thiamine HCl (vitamin B1) 100 mg capsule 03-28 00:00: 00 Yes [id number] 1 capsule BEDTIME 1 capsule BEDTIME (route: oral) Med Classific ation: Electroly te Balance-N utritiona l Products tolvaptan 30 mg tablet 03-28 00:00: 00 Yes [id number] 1 tablet DAILY 1 tablet DAILY (route: oral) Med Classific ation: Cardiovas cular Therapy Agents oxycodone 5 mg tablet 04-27 00:00: 00 05-18 23:59 :00 No [id number] 1 tablet EVERY 6 HOURS 1 tablet EVERY 6 HOURS (route: oral) Med Classific ation: Analgesic , Anti-infl ammatory or Antipyret ic oxycodone 5 mg tablet 8- 00:00: 00 Yes [id number] 1 tablet EVERY 4-6 HOURS NEEDED 1 tablet EVERY 4-6 HOURS NEEDED (route: oral) Med Classific ation: Analgesic , Anti-infl ammatory or Antipyret ic Jardiance 10 mg tablet 4-01 00:00: 00 Yes [id number] 1 tablet DAILY 1 tablet DAILY (route: oral) Med Classific ation: Endocrine Miralax 17 gram/dose oral powder 2-03 00:00: 00 Yes [id number] 17 gram 2 TIMES DAILY 17 gram 2 TIMES DAILY (route: oral) Med Classific ation: Gastroint estinal Therapy Agents torsemide 20 mg tablet 7-02 00:00: 00 Yes [id number] 1 tablet DAILY 1 tablet DAILY (route: oral) Med Classific ation: Cardiovas cular Therapy Agents tramadol 50 mg tablet - 00:00: 00 Yes [id number] 1 tablet EVERY 6 HOURS 1 tablet [...] MAINTAIN SITUATIONAL AWARENESS AND WILL NOTIFY CLINICAL CONVEYOR ATTENDANT AND PHYSICIAN/PROVIDER WITH ANY CHANGE IN CONDITION. [code = SKILLED NURSE TO PERFORM ENVIRONMENTAL SAFETY RISK ASSESSMENT AND FALL RISK ASSESSMENT AND PROVIDE INSTRUCTION TO IMPLEMENT ENVIRONMENTAL SAFETY AND FALL PREVENTION STRATEGIES THROUGHOUT THE CERTIFICATION PERIOD. SKILLED NURSE WILL MAINTAIN SITUATIONAL AWARENESS AND WILL NOTIFY CLINICAL CONVEYOR ATTENDANT AND PHYSICIAN/PROVIDER WITH ANY CHANGE IN CONDITION.] [...] TINETTI SCORE LESS THAN 19/30, 30 SECOND [id number] SCORE LESS THAN 6, AND DEMONSTRATES IMPAIRED ABILITY TO AMBULATE HOUSEHOLD DISTANCES EVIDENCED BY TUG SCORE GREATER THAN 30 SECONDS, HEP ESTABLISHED WITH PATIENT TO INCLUDE ABDOMINAL BRACING PERFORMED IN SUPINE, UTILIZING LOG ROLLING TECHNIQUES LEFT AND RIGHT SIDES WITH ABDOMINAL BRACING WITH EMPHASIS ON SPINE PRECAUTIONS, AND PARTIAL [id number]-LM-[id number] TRANSFER TRAINING PERFORMED WITH EMPHASIS ON HIP HINGING/MINIMIZING BENDING/LIFTING/TWISTING FOR MAINTAINING COMFORT, PATIENT HAS NO FORMAL SPINE PRECAUTIONS HOWEVER WILL BENEFIT FROM EDUCATION ON SPINE PRECAUTIONS FOR PAIN MANAGEMENT. PATIENT ABLE TO IMPROVE PAIN LEVELS FROM 9/10 DECREASED TO 6/10 BY END OF VISIT. PATIENT FRUSTRATED AND REPORTING THAT HE HAS HAD PAIN CONTROL ISSUES, REPORTS THAT INSTALLATION DRAFTER AND PCP OFFICE OR BOTH UNWILLING TO [...] TINETTI SCORE LESS THAN 19/30, 30 SECOND [id number] SCORE LESS THAN 6, AND DEMONSTRATES IMPAIRED ABILITY TO AMBULATE HOUSEHOLD DISTANCES EVIDENCED BY TUG SCORE GREATER THAN 30 SECONDS, HEP ESTABLISHED WITH PATIENT TO INCLUDE ABDOMINAL BRACING PERFORMED IN SUPINE, UTILIZING LOG ROLLING TECHNIQUES LEFT AND RIGHT SIDES WITH ABDOMINAL BRACING WITH EMPHASIS ON SPINE PRECAUTIONS, AND PARTIAL [id number] TRANSFER TRAINING PERFORMED WITH EMPHASIS ON HIP HINGING/MINIMIZING BENDING/LIFTING/TWISTING FOR MAINTAINING COMFORT, PATIENT HAS NO FORMAL SPINE PRECAUTIONS HOWEVER WILL BENEFIT FROM EDUCATION ON SPINE PRECAUTIONS FOR PAIN MANAGEMENT. PATIENT ABLE TO IMPROVE PAIN LEVELS FROM 9/10 DECREASED TO 6/10 BY END OF VISIT. PATIENT FRUSTRATED AND REPORTING THAT HE HAS HAD PAIN CONTROL ISSUES, REPORTS THAT INSTALLATION DRAFTER AND PCP OFFICE OR BOTH UNWILLING TO [...] End Date/Time Encounter Type Admission Type Attending [facility] Care Department Encounter ID Discharge Date Discharge Status Discharge Condition Discharge Reason Percent Goals Met 2025-06-05 00:00:00 2025-08-03 00:00:00 Outpatient RECERTIFIC HORTENCIA MARISCAL [facility] [id number] 66.67
== END 2025-07-21 10:24 | disposition home or self-care (01) ==
LOC: HO.HUSH 09:34
PROVIDERS: PCP Internal Medicine; Visit Provider Urology
DX: N45.3 Epididymo-orchitis (principal)
CPT/HCPCS: 99213

== ENCOUNTER → 2025-07-21 09:33 | Outpatient (BNVA) | payer MEDICARE, SELFPAY | PROVIDERS: PCP Internal Medicine; Visit Provider Urology | DX: N45.3 Epididymo-orchitis (principal); N43.3 Hydrocele, unspecified; N40.0 Benign prostatic hyperplasia without lower urinary tract symptoms | CPT/HCPCS: 99212 ==